=== PATIENT | female | born 1945 | race American Indian/Alaskan Native ===

== ENCOUNTER 2016-05-20 09:10 | Day surgery (SDC) | payer MEDICARE ==
[2016-05-20] MEDS ORDERED: Lactated Ringers 1,000 ML IV SCH (10:00)
[2016-05-20] MEDS ORDERED: Propofol 200 MG/20 ML SDV ONE ×2 (10:39→11:27)
[2016-05-20] MEDS ORDERED: Midazolam 1 MG/ML 2 ML SDV ONE (10:39)
[2016-05-20] MEDS ORDERED: fentaNYL 100 MCG/2 ML SDV ONE (10:39)
[2016-05-20 12:35] VITALS: BP 168/82
--- NOTE | 2016-05-23 09:30 | OR ---
DATE OF PROCEDURE: 05/20/2016 PREOPERATIVE DIAGNOSIS: Colon cancer screening and diarrhea. POSTOPERATIVE DIAGNOSES: Colon cancer screening and diarrhea. PROCEDURE: Colonoscopy to the cecum with random colonic biopsies. ANESTHESIA: IV anesthesia with monitored anesthesia care. INDICATION: This 71-year-old female is referred for a colonoscopy. She says her last colonoscopic exam was done ten years ago. She says she is having chronic diarrhea. I counseled her for a colonoscopy with possible biopsy, including risks and alternatives, and she gave her informed consent to proceed. DESCRIPTION OF PROCEDURE: The patient was placed in the left lateral decubitus position. IV anesthesia was administered by the Anesthesia Service. Time-out was held. A rectal exam was performed, which was unremarkable. The flexible video Olympus colonoscope was introduced through her anus, up her rectum, and out her colon all way to the cecum. Once the cecum was reached, the scope was slowly withdrawn examining the mucosa throughout. No mucosal abnormalities were noted. We did obtain random colonic biopsies throughout her entire colon as she complains of diarrhea. The scope was retroflexed in the rectum with the distal rectum appearing unremarkable. The scope was straightened and removed. She tolerated the procedure well. Kranthi Jade MD /[id number] [place]
== END 2016-05-20 13:20 | disposition home or self-care (01) ==
LOC: JP.SDS 09:10
PROVIDERS: ATTEND Surgery
DX: Z12.11 Encounter for screening for malignant neoplasm of colon (principal); I27.2 Other secondary pulmonary hypertension; I10 Essential (primary) hypertension; E11.9 Type 2 diabetes mellitus without complications; M19.90 Unspecified osteoarthritis, unspecified site; Z88.8 Allergy status to other drugs, medicaments and biological substances; Z95.1 Presence of aortocoronary bypass graft; Z95.5 Presence of coronary angioplasty implant and graft; F17.210 Nicotine dependence, cigarettes, uncomplicated; Z79.4 Long term (current) use of insulin
CPT/HCPCS: 45380; 88305; J2250; J2704; J3010; J7120

== ENCOUNTER 2017-11-15 19:22 | Observation (INO) | payer MEDICARE ==
[2017-11-15] MEDS ORDERED: Furosemide 40 MG/4 ML VIAL IVPUSH ONE (20:49)
--- NOTE | 2017-11-15 21:51 | EDM.PDOC ---
ED HPI GENERAL MEDICAL PROBLEM - General Chief Complaint: Cardiovascular Problem Stated Complaint: LEGS ARE SWOLLEN Time Seen by Provider: 11/15/17 20:30 Source of Information: Reports: Patient History Limitations: Reports: No Limitations - History of Present Illness INITIAL COMMENTS - FREE TEXT/NARRATIVE: 72-year-old female who has chronic COPD, chronic back pain, and chronic lower extremity edema is concerned that over the past 24 hours her usual foot and ankle edema has progressed to bilateral leg edema into the thighs. She has no increase in shortness of breath, she has chronic hypoxia and is supposed to be on home O2 but doesn't use it. She had an MRI on her back yesterday that showed a worsening L1 fracture. She is on 2400 mg of Neurontin daily. She is also and 40 mg of Lasix daily, has not missed her medications. She does admit she doesn' t monitor salt intake and eats chips "every day". Her chief complaint is her peripheral edema. Onset: Gradual (worsened over the past 24 hours) Severity: Moderate Associated Symptoms: Reports: Shortness of Breath (Chronic shortness of breath, no recent change), Weakness, Other (Intense back pain). Denies: Confusion, Cough, Nausea/Vomiting denies pain Pain Score (Numeric/FACES): 0 - Related Data Allergies Allergy/AdvReac Type Severity Reaction Status Date / Time hydrochlorothiazide Allergy Other Verified 01/07/16 09:34 [From Dyazide] hydrocodone Allergy Other Verified 01/07/16 09:34 loperamide [From Imodium A-D] Allergy Cannot Verified 05/17/16 12:53 Remember oxybutynin Allergy Other Verified 01/07/16 09:34 [id number] Reductase Allergy Other Verified 01/07/16 09:34 Inhibitor triamterene [From Dyazide] Allergy Other Verified 01/07/16 09:34 budesonide [From Symbicort] AdvReac Nausea and Verified 01/07/16 09:34 Vomiting formoterol fumarate AdvReac Nausea and Verified 01/07/16 09:34 [From Symbicort] Vomiting pregabalin [From Lyrica] AdvReac Headache Verified 01/07/16 09:34 tizanidine AdvReac Nausea Verified 01/08/16 10:52 Home Meds: Home Meds Aspirin [Adult Low Dose Aspirin EC] 81 mg PO DAILY 05/09/13 [History] Hydroxychloroquine Sulfate 400 mg PO DAILY 05/09/13 [History] SitaGLIPtin [Januvia] 100 mg PO DAILY 05/09/13 [History] cycloSPORINE [Restasis] 1 drop EYEBOTH BID 05/09/13 [History] Gabapentin [Neurontin] 600 mg PO BID 01/07/15 [History] Loratadine [Allergy Relief] 10 mg PO DAILY 01/07/15 [History] Losartan Potassium [Cozaar] 100 mg PO DAILY 01/07/15 [History] Albuterol [Proventil Neb Soln] 3 ml INH Q4H PRN 09/22/15 [History] Albuterol [Ventolin HFA] 2 puff INH Q6H PRN 09/22/15 [History] Calcium Citrate/Vitamin D3 [Calcium Citrate + D] 200 - 250 mg PO BID 09/22/15 [ History] Furosemide 40 mg PO DAILY 09/22/15 [History] Gabapentin [Neurontin] 1,200 mg PO QPM 01/05/16 [History] aMILoride [Midamor] 5 mg PO DAILY 01/05/16 [History] Acetaminophen 1,000 mg PO Q8H PRN 05/17/16 [History] Ferrous Sulfate 325 mg PO TID 05/17/16 [History] Magnesium Oxide 400 mg PO TID 05/17/16 [History] Naproxen 500 mg PO BID 05/17/16 [History] metroNIDAZOLE [metroNIDAZOLE 0.75% Cream] 1 film TOP BID 05/17/16 [History] Oxybutynin Chloride [Oxybutynin Chloride ER] 15 mg PO DAILY 11/15/17 [History] amLODIPine Besylate [Amlodipine Besylate] 10 mg PO DAILY 11/15/17 [History] Past Medical History HEENT History: Reports: Glaucoma, Impaired Vision Other HEENT History: Otitis externa of right ear, bilateral dry eyes Cardiovascular History: Reports: CAD, High Cholesterol, Hypertension, SOB on Exertion Other Cardiovascular History: RBBB,ventricular diastolic dysfunction Respiratory History: Reports: Asthma, COPD, Other (See Below) Other Respiratory History: pulmonary hypertension. suppose to be on home O2 due to COPD, patient discontinued use and sent equipment with oxygen supplier. Patient normally on 2L continuous at home. Gastrointestinal History: Reports: Chronic Diarrhea Genitourinary History: Reports: Diabetic Nephropathy, Urinary Incontinence [employer] History: Reports: Musculoskeletal History: Reports: Arthritis, Back Pain, Chronic, Fracture Other Musculoskeletal History: fx ankle Neurological History: Reports: None Psychiatric History: Reports: None Endocrine/Metabolic History: Reports: Diabetes, Type II, Obesity/BMI 30+, Osteoporosis Hematologic History: Reports: Anticoagulation Therapy Immunologic History: Reports: SLE Other Immunologic History: lupus anticoagulant positive Oncologic (Cancer) History: Reports: None Dermatologic History: Reports: Venous Stasis Dermatitis - Infectious Disease History Infectious Disease History: Reports: Chicken Pox - Past Surgical History Female Surgical History: Reports: Breast Biopsy Musculoskeletal Surgical History: Reports: Other (See Below) Other Musculoskeletal Surgeries/Procedures:: left ankle repair Oncologic Surgical History: Reports: Biopsy of Breast Dermatological Surgical History: Reports: Skin Biopsy Social & Family History - Tobacco Use Smoking Status *Q: Never Smoker - Caffeine Use Caffeine Use: Reports: Coffee - Recreational Drug Use Recreational Drug Use: No ED ROS GENERAL - Review of Systems Review Of Systems: See Below Constitutional: Denies: Fever, Chills, Decreased Appetite Respiratory: Reports: Shortness of Breath. Denies: Cough Cardiovascular: Denies: Chest Pain GI/Abdominal: Denies: Abdominal Pain, Nausea, Vomiting : Reports: No Symptoms Musculoskeletal: Reports: Back Pain Neurological: Reports: Other (Some lower extremity diabetic neuropathy) Psychiatric: Reports: No Symptoms ED EXAM, GENERAL - Physical Exam Exam: See Below Exam Limited By: No Limitations General Appearance: Alert, No Apparent Distress, Other (She has significant back pain with any type of movement such as sitting from a supine position) Head: Atraumatic Respiratory/Chest: No Respiratory Distress, Lungs Clear Cardiovascular: Regular Rate, Rhythm GI/Abdominal: Non-Tender Back Exam: Vertebral Tenderness (Very tender in the upper lumbar spine to any palpation) Extremities: Pedal Edema (Patient has pitting edema proximal to the knees bilaterally, slightly worse on the right) Neurological: Alert, Oriented Skin Exam: Warm, Dry Course - Vital Signs Last Recorded V/S: Last Vital Signs Temp 96.8 F 11/16/17 01:15 Pulse 66 11/16/17 01:15 Resp 20 11/16/17 01:15 BP 153/53 H 11/16/17 01:15 Pulse Ox 97 11/16/17 01:15 - Orders/Labs/Meds Orders: Active Orders 24 hr Category Date Time Status Oxygen Therapy, ED [RC] ASDIRECTED Care 11/15/17 20:48 Active VL Duplex Lwr Ext Veins Comp [US] Stat Exams 11/15/17 21:42 Taken Medication Orders Acetaminophen (Tylenol) 650 mg PO Q4H PRN PRN Reason: Pain (Mild 1-3)/fever Albuterol (Proventil Neb Soln) 2.5 mg INH Q4H PRN PRN Reason: wheezing Alogliptin Benzoate (Alogliptin) 12.5 mg PO DAILY [facility] Amlodipine Besylate (Norvasc) 10 mg PO DAILY [facility] Bisacodyl (Dulcolax) 5 mg PO DAILY PRN PRN Reason: Constipation Cyclosporine (Restasis) 0 each EYEBOTH BID [facility] Docusate Sodium (Colace) 100 mg PO BID PRN PRN Reason: Constipation Furosemide (Lasix) 40 mg PO DAILY [facility] Hydroxychloroquine Sulfate (Plaquenil) 400 mg PO DAILY [facility] Insulin Aspart (Novolog) 0 unit SUBCUT QIDACANDBED [facility]; Protocol Lorazepam (Ativan) 1 mg IV Q6H PRN PRN Reason: Nausea/Vomiting Losartan Potassium (Cozaar) 100 mg PO DAILY [facility] Magnesium Oxide (Magnesium Oxide) 400 mg PO TID [facility] Non-Formulary Medication (Gabapentin [Neurontin]) 600 mg PO BID [facility] Non-Formulary Medication (Gabapentin [Neurontin]) 1,200 mg PO QPM [facility] Ondansetron HCl (Zofran Odt) 4 mg PO Q6H PRN PRN Reason: Nausea able to take PO Ondansetron HCl (Zofran) 4 mg IV Q4H PRN PRN Reason: Nausea/Vomiting Pantoprazole Sodium (Protonix Granules) 40 mg PO ACBREAKFAST [facility] Labs: Laboratory Tests 11/15/17 11/15/17 11/15/17 Range/Units 20:49 20:49 20:49 WBC 5.8 (4.5-11.0) K/uL RBC 3.95 (3.30-5.50) M/uL Hgb 11.8 L D (12.0-15.0) g/dL Hct 36.4 (36.0-48.0) % MCV 92 (80-98) fL MCH 30 (27-31) pg MCHC 32 (32-36) % Plt Count 139 L (150-400) K/uL Neut % (Auto) 79 H (36-66) % Lymph % (Auto) 12 L (24-44) % Winkler % (Auto) 6 (2-6) % Eos % (Auto) 3 (2-4) % Baso % (Auto) 0 (0-1) % D-Dimer, Quantitative 2420 H (0.0-400.0) ng/mL Sodium 137 L (140-148) mmol/L Potassium 4.3 (3.6-5.2) mmol/L Chloride 102 (100-108) mmol/L Carbon Dioxide 30 (21-32) mmol/L Anion Gap 9.3 (5.0-14.0) mmol/L BUN 29 H D (7-18) mg/dL Creatinine 1.4 H D (0.6-1.0) mg/dL Est Cr Clr Drug Dosing 29.57 mL/min Estimated GFR (MDRD) 37 L (>60) Glucose 163 H (74-106) mg/dL Calcium 8.4 L (8.5-10.1) mg/dL Meds: Medications Generic Name Dose Route Start Last Admin Trade Name Freq PRN Reason Stop Dose Admin Acetaminophen 650 mg 11/16/17 01:13 Tylenol PO Q4H PRN Pain (Mild 1-3)/fever Albuterol 2.5 mg 11/16/17 01:13 Proventil Neb Soln INH Q4H PRN wheezing Alogliptin Benzoate 12.5 mg 11/16/17 09:00 Alogliptin PO DAILY [facility] Amlodipine Besylate 10 mg 11/16/17 09:00 Norvasc PO DAILY [facility] Bisacodyl 5 mg 11/16/17 01:13 Dulcolax PO DAILY PRN Constipation Cyclosporine 0 each 11/16/17 09:00 Restasis EYEBOTH BID [facility] Docusate Sodium 100 mg 11/16/17 01:13 Colace PO BID PRN Constipation Furosemide 40 mg 11/16/17 09:00 Lasix PO DAILY [facility] Hydroxychloroquine Sulfate 400 mg 11/16/17 09:00 Plaquenil PO DAILY [facility] Insulin Aspart 0 unit 11/16/17 07:00 Novolog SUBCUT QIDACANDBED [facility] Protocol Lorazepam 1 mg 11/16/17 01:13 Ativan IV Q6H PRN Nausea/Vomiting Losartan Potassium 100 mg 11/16/17 09:00 Cozaar PO DAILY [facility] Magnesium Oxide 400 mg 11/16/17 09:00 Magnesium Oxide PO TID [facility] Non-Formulary Medication 600 mg 11/16/17 09:00 Gabapentin [Neurontin] PO BID [facility] Non-Formulary Medication 1,200 mg 11/16/17 17:00 Gabapentin [Neurontin] PO QPM [facility] Ondansetron HCl 4 mg 11/16/17 01:13 Zofran Odt PO Q6H PRN Nausea able to take PO Ondansetron HCl 4 mg 11/16/17 01:13 Zofran IV Q4H PRN Nausea/Vomiting Pantoprazole Sodium 40 mg 11/16/17 07:30 Protonix Granules PO ACBREAKFAST [facility] Discontinued Medications Generic Name Dose Route Start Last Admin Trade Name Freq PRN Reason Stop Dose Admin Enoxaparin Sodium 80 mg 11/16/17 01:13 11/16/17 02:07 Lovenox SUBCUT 11/16/17 01:14 80 mg ONETIME ONE Administration Furosemide 80 mg 11/15/17 20:49 11/15/17 21:13 Lasix IVPUSH 11/15/17 20:50 80 mg ONETIME ONE Administration - Re-Assessments/Exams Free Text/Narrative Re-Assessment/Exam: 11/15/17 21:51 Patient's O2 saturations on arrival were only 83-84% on room air. 2 L of nasal cannula oxygen were supplemented and her saturations glory to 95-97%. After her exam, a CBC BMP and d-dimer were obtained, d-dimer came back very elevated at 2400. Her MRI report of the lumbar spine was reviewed, results were discussed with neurosurgery and felt nothing urgent needed to be done. Ultrasounds of the lower extremities were obtained. 11/15/17 23:15 Ultrasound did confirm a left peroneal DVT in the lower left leg. Patient had difficulty ambulating onto and off of the commode, I do not feel she is capable of going home alone. I would like the hospitalist service to admit the patient for careful diuresis, and assess whether anticoagulation is necessary. It's also concerning that her renal function has worsened since her last levels here in the hospital 2 years ago. Function was normal 2 years ago, GFR is now only 37. Departure - Departure Time of Disposition: 01:16 Disposition: Admitted As Inpatient 68 Condition: Fair Clinical Impression: Peripheral edema COPD (chronic obstructive pulmonary disease) Qualifiers: COPD type: unspecified COPD Qualified Code(s): J44.9 - Chronic obstructive pulmonary disease, unspecified DVT (deep venous thrombosis) Qualifiers: DVT location: lower extremity Affected thrombotic vein of extremity: unspecified lower extremity distal vein Chronicity: acute Laterality: left Qualified Code(s): I82.4Z2 - Acute embolism and thrombosis of unspecified deep veins of left distal lower extremity - My Orders Last 24 Hours: My Active Orders 11/15/17 20:48 Oxygen Therapy, ED [] ASDIRECTED 11/15/17 21:42 VL Duplex Lwr Ext Veins Comp [US] Stat - Assessment/Plan Last 24 Hours: My Active Orders 11/15/17 20:48 Oxygen Therapy, ED [] ASDIRECTED 11/15/17 21:42 VL Duplex Lwr Ext Veins Comp [US] Stat
--- NOTE | 2017-11-16 00:22 | PCM.HP ---
H&P History of Present Illness - General Date of Service: 11/15/17 Admit Problem/Dx: Admission Diagnosis/Problem Admission Diagnosis/Problem DVT, Deep venous thrombosis of lower extremity Source of Information: Patient History Limitations: Reports: No Limitations - History of Present Illness Initial Comments - Free Text/Narative: 72-year-old female who has chronic COPD, chronic back pain, and chronic lower extremity edema is concerned that over the past 24 hours her usual foot and ankle edema has progressed to bilateral leg edema into the thighs. She has no increase in shortness of breath, she has chronic hypoxia and is supposed to be on home O2 but doesn't use it. She had an MRI on her back yesterday that showed a worsening L1 fracture. She is on 2400 mg of Neurontin daily. She is also and 40 mg of Lasix daily, has not missed her medications. She does admit she doesn' t monitor salt intake and eats chips "every day". Her chief complaint is her peripheral edema. Onset: Gradual (worsened over the past 24 hours) Severity: Moderate Associated Symptoms: Reports: Shortness of Breath (Chronic shortness of breath, no recent change), Weakness, Other (Intense back pain). Denies: Confusion, Cough, Nausea/Vomiting Pain Score (Numeric/FACES): 0 Allergies; see med list; multi Patient's O2 saturations on arrival were only 83-84% on room air. 2 L of nasal cannula oxygen were supplemented and her saturations glory to 95-97%. After her exam, a CBC BMP and d-dimer were obtained, d-dimer came back very elevated at 2400. Her MRI report of the lumbar spine was reviewed, results were discussed with neurosurgery and felt nothing urgent needed to be done. Ultrasounds of the lower extremities were obtained. Ultrasound did confirm a left peroneal DVT in the lower left leg. Patient had difficulty ambulating onto and off of the commode, I do not feel she is capable of going home alone. I would like the hospitalist service to admit the patient for careful diuresis, and assess whether anticoagulation is necessary. It's also concerning that her renal function has worsened since her last levels here in the hospital 2 years ago. Function was normal 2 years ago, GFR is now only 37. Onset of Symptoms: Reports: Today (started this morning. ) Duration of Symptoms: Reports: Hour(s):, Getting Worse Location: Reports: Lower Extremity, Left, Lower Extremity, Right Quality: Reports: Ache Severity: Moderate Improves with: Reports: None Worsens with: Reports: None Associated Symptoms: Reports: No Other Symptoms denies pain Pain Score (Numeric/FACES): 0 - Related Data Allergies/Adverse Reactions: Allergies Allergy/AdvReac Type Severity Reaction Status Date / Time hydrochlorothiazide Allergy Other Verified 01/07/16 09:34 [From Dyazide] hydrocodone Allergy Other Verified 01/07/16 09:34 loperamide [From Imodium A-D] Allergy Cannot Verified 05/17/16 12:53 Remember oxybutynin Allergy Other Verified 01/07/16 09:34 Oqqzjop-Wir-Efq Reductase Allergy Other Verified 01/07/16 09:34 Inhibitor triamterene [From Dyazide] Allergy Other Verified 01/07/16 09:34 budesonide [From Symbicort] AdvReac Nausea and Verified 01/07/16 09:34 Vomiting formoterol fumarate AdvReac Nausea and Verified 01/07/16 09:34 [From Symbicort] Vomiting pregabalin [From Lyrica] AdvReac Headache Verified 01/07/16 09:34 tizanidine AdvReac Nausea Verified 01/08/16 10:52 Home Medications: Home Meds Aspirin [Adult Low Dose Aspirin EC] 81 mg PO DAILY 05/09/13 [History] Hydroxychloroquine Sulfate 400 mg PO DAILY 05/09/13 [History] SitaGLIPtin [Januvia] 100 mg PO DAILY 05/09/13 [History] cycloSPORINE [Restasis] 1 drop EYEBOTH BID 05/09/13 [History] Gabapentin [Neurontin] 600 mg PO BID 01/07/15 [History] Loratadine [Allergy Relief] 10 mg PO DAILY 01/07/15 [History] Losartan Potassium [Cozaar] 100 mg PO DAILY 01/07/15 [History] Albuterol [Proventil Neb Soln] 3 ml INH Q4H PRN 09/22/15 [History] Albuterol [Ventolin HFA] 2 puff INH Q6H PRN 09/22/15 [History] Calcium Citrate/Vitamin D3 [Calcium Citrate + D] 200 - 250 mg PO BID 09/22/15 [ History] Furosemide 40 mg PO DAILY 07/05/16 [History] Gabapentin [Neurontin] 1,200 mg PO QPM 01/05/16 [History] aMILoride [Midamor] 5 mg PO DAILY 01/05/16 [History] Acetaminophen 1,000 mg PO Q8H PRN 05/17/16 [History] Ferrous Sulfate 325 mg PO TID 05/17/16 [History] Magnesium Oxide 400 mg PO TID 05/17/16 [History] Naproxen 500 mg PO BID 05/17/16 [History] metroNIDAZOLE [metroNIDAZOLE 0.75% Cream] 1 film TOP BID 05/17/16 [History] Oxybutynin Chloride [Oxybutynin Chloride ER] 15 mg PO DAILY 11/15/17 [History] amLODIPine Besylate [Amlodipine Besylate] 10 mg PO DAILY 11/15/17 [History] Past Medical History HEENT History: Reports: Glaucoma, Impaired Vision Other HEENT History: Otitis externa of right ear, bilateral dry eyes Cardiovascular History: Reports: CAD, High Cholesterol, Hypertension, SOB on Exertion Other Cardiovascular History: RBBB,ventricular diastolic dysfunction Respiratory History: Reports: Asthma, COPD, Other (See Below) Other Respiratory History: pulmonary hypertension. suppose to be on home O2 due to COPD, patient discontinued use and sent equipment with oxygen supplier. Patient normally on 2L continuous at home. Gastrointestinal History: Reports: Chronic Diarrhea Genitourinary History: Reports: Diabetic Nephropathy, Urinary Incontinence [employer] History: Reports: Musculoskeletal History: Reports: Arthritis, Back Pain, Chronic, Fracture Other Musculoskeletal History: fx ankle Neurological History: Reports: None Psychiatric History: Reports: None Endocrine/Metabolic History: Reports: Diabetes, Type II, Obesity/BMI 30+, Osteoporosis Hematologic History: Reports: Anticoagulation Therapy Immunologic History: Reports: SLE Other Immunologic History: lupus anticoagulant positive Oncologic (Cancer) History: Reports: None Dermatologic History: Reports: Venous Stasis Dermatitis - Infectious Disease History Infectious Disease History: Reports: Chicken Pox - Past Surgical History Female Surgical History: Reports: Breast Biopsy Musculoskeletal Surgical History: Reports: Other (See Below) Other Musculoskeletal Surgeries/Procedures:: left ankle repair Oncologic Surgical History: Reports: Biopsy of Breast Dermatological Surgical History: Reports: Skin Biopsy Social & Family History - Tobacco Use Smoking Status *Q: Never Smoker - Caffeine Use Caffeine Use: Reports: Coffee - Recreational Drug Use Recreational Drug Use: No - Living Situation & Occupation Living situation: Reports: Single, Alone (lives alone in her home in [place], [place]., 2 children; son Palmer,who visits on weekends, Daughter two years ago of overdose. 3 grandchildren.) H&P Review of Systems - Review of Systems: Review Of Systems: See Below General: Reports: Other (lower leg pain and edema) HEENT: Reports: Glasses Pulmonary: Reports: Shortness of Breath (chronic secondary to COPD) Cardiovascular: Reports: No Symptoms Gastrointestinal: Reports: No Symptoms Genitourinary: Reports: No Symptoms Musculoskeletal: Reports: Leg Pain (bilateral lower leg edema. ) Skin: Reports: No Symptoms Psychiatric: Reports: No Symptoms Neurological: Reports: No Symptoms Hematologic/Lymphatic: Reports: No Symptoms Immunologic: Reports: No Symptoms Exam - Exam Exam: See Below - Vital Signs Vital Signs: Last Vital Signs Temp 36.5 C 11/16/17 00:10 Pulse 67 11/16/17 00:10 Resp 18 11/16/17 00:10 BP 160/58 H 11/16/17 00:10 Pulse Ox 97 11/16/17 00:10 Weight: 82.554 kg - Exam Quality Assessment: Supplemental Oxygen (2 liter per NC), DVT Prophylaxis (left leg DVT) General: Alert, Oriented, 4 HEENT: PERRLA, Conjunctiva Clear, EACs Clear, EOMI, Hearing Intact, Mucosa Moist & Burien, Nares Patent, Normal Nasal Septum, Posterior Pharynx Clear, TMs Clear, Glasses Neck: Supple, Trachea Midline, 2 Lungs: Clear to Auscultation, Normal Respiratory Effort, Decreased Breath Sounds Cardiovascular: Regular Rate, Regular Rhythm, Normal S1, Normal S2 GI/Abdominal Exam: Normal Bowel Sounds, Soft, Non-Tender, No Organomegaly, No Mass (Female) Exam: Deferred Rectal (Female) Exam: Deferred Back Exam: Other (chronic low back pain) Extremities: Pedal Edema (bilateral 1+ pitting edema to knees), Slow Capillary Refill Peripheral Pulses: 2+: Radial (L), Radial (R) Skin: Warm, Dry, Intact Neurological: Strength Equal Bilateral Neuro Extensive - Mental Status: Alert, Oriented x3, Normal Mood/Affect, Normal Cognition Neuro Extensive - Motor, Sensory, Reflexes: CN II-XII Intact, Normal Gait ( ambulates with assistance of walker) Psychiatric: Alert, Normal Affect, Normal Mood - Patient Data Lab Results Last 24 hrs: Laboratory Results - last 24 hr 11/15/17 11/15/17 11/15/17 Range/Units 20:49 20:49 20:49 WBC 5.8 (4.5-11.0) K/uL RBC 3.95 (3.30-5.50) M/uL Hgb 11.8 L D (12.0-15.0) g/dL Hct 36.4 (36.0-48.0) % MCV 92 (80-98) fL MCH 30 (27-31) pg MCHC 32 (32-36) % Plt Count 139 L (150-400) K/uL Neut % (Auto) 79 H (36-66) % Lymph % (Auto) 12 L (24-44) % Bullitt % (Auto) 6 (2-6) % Eos % (Auto) 3 (2-4) % Baso % (Auto) 0 (0-1) % D-Dimer, Quantitative 2420 H (0.0-400.0) ng/mL Sodium 137 L (140-148) mmol/L Potassium 4.3 (3.6-5.2) mmol/L Chloride 102 (100-108) mmol/L Carbon Dioxide 30 (21-32) mmol/L Anion Gap 9.3 (5.0-14.0) mmol/L BUN 29 H D (7-18) mg/dL Creatinine 1.4 H D (0.6-1.0) mg/dL Est Cr Clr Drug Dosing 29.57 mL/min Estimated GFR (MDRD) 37 L (>60) Glucose 163 H (74-106) mg/dL Calcium 8.4 L (8.5-10.1) mg/dL Result Diagrams: 11/15/17 20:49 11/15/17 20:49 - Problem List (1) COPD (chronic obstructive pulmonary disease) SNOMED Code(s): 26167012 ICD Code: J44.9 - CHRONIC OBSTRUCTIVE PULMONARY DISEASE, UNSPECIFIED Status : Acute Priority: Low Current Visit: Yes Qualifiers: COPD type: unspecified COPD Qualified Code(s): J44.9 - Chronic obstructive pulmonary disease, unspecified (2) DVT (deep venous thrombosis) SNOMED Code(s): 689674027 ICD Code: I82.409 - ACUTE EMBOLISM AND THOMBOS UNSP DEEP VN UNSP LOWER EXTREMITY Status: Acute Priority: High Current Visit: Yes Qualifiers: DVT location: lower extremity Affected thrombotic vein of extremity: unspecified lower extremity distal vein Chronicity: acute Laterality: left Qualified Code(s): I82.4Z2 - Acute embolism and thrombosis of unspecified deep veins of left distal lower extremity (3) Peripheral edema SNOMED Code(s): 378160564 ICD Code: R60.9 - EDEMA, UNSPECIFIED Status: Acute Priority: High Current Visit: Yes (4) Back pain SNOMED Code(s): 665483305 ICD Code: M54.9 - DORSALGIA, UNSPECIFIED Status: Acute Priority: Medium Current Visit: No Qualifiers: Back pain location: low back pain Chronicity: chronic (5) Diabetes mellitus, type 2 SNOMED Code(s): 14534582 ICD Code: E11.9 - TYPE 2 DIABETES MELLITUS WITHOUT COMPLICATIONS Status: Acute Priority: Medium Current Visit: Yes Qualifiers: Diabetes mellitus complication status: without complication Problem List Initiated/Reviewed/Updated: Yes Orders Last 24hrs: Active Orders 24 hr Category Date Time Status Patient Status Manage Transfer [TRANSFER] Routine ADT 11/16/17 00:03 Ordered Oxygen Therapy, ED [] ASDIRECTED Care 11/15/17 20:48 Active VL Duplex Lwr Ext Veins Comp [US] Stat Exams 11/15/17 21:42 Taken Resuscitation Status Routine Resus Stat 11/16/17 00:05 Ordered Assessment/Plan Comment:: ASSESSMENT / PLAN -72-year-old female who has chronic COPD, chronic back pain, and chronic lower extremity edema is concerned that over the past 24 hours her usual foot and ankle edema has progressed to bilateral leg edema into the thighs. She has no increase in shortness of breath, she has chronic hypoxia and is supposed to be on home O2 but doesn't use it. She had an MRI on her back yesterday that showed a worsening L1 fracture. She is on 2400 mg of Neurontin daily. She is also and 40 mg of Lasix daily, has not missed her medications. She does admit she doesn' t monitor salt intake and eats chips "every day". Her chief complaint is her peripheral edema. Onset: Gradual (worsened over the past 24 hours) Severity: Moderate Associated Symptoms: Reports: Shortness of Breath (Chronic shortness of breath, no recent change), Weakness, Other (Intense back pain). Denies: Confusion, Cough, Nausea/Vomiting Pain Score: 0 Allergies; see med list Patient's O2 saturations on arrival were only 83-84% on room air. 2 L of nasal cannula oxygen were supplemented and her saturations glory to 95-97%. After her exam, a CBC BMP and d-dimer were obtained, d-dimer came back very elevated at 2400. Her MRI report of the lumbar spine was reviewed, results were discussed with neurosurgery and felt nothing urgent needed to be done. Ultrasounds of the lower extremities were obtained. Ultrasound did confirm a left peroneal DVT in the lower left leg. Patient had difficulty ambulating onto and off of the commode, I do not feel she is capable of going home alone. I would like the hospitalist service to admit the patient for careful diuresis, and assess whether anticoagulation is necessary. It's also concerning that her renal function has worsened since her last levels here in the hospital 2 years ago. Function was normal 2 years ago, GFR is now only 37. Plan: DVT left leg, Perpheral edema -Admit to ICU Med Surg Overflow for further monitoring -Lovenox 80mg subcut once, reassess in am -IV Lasix 80mg in ER, order po 40mg in am. -Telemetry -saline lock -Advise to notify nurses of any chest pain or other symptoms -And a.m. labs: INR/PT COPD -order home medication -oxygen dependent , 2 liter per NC Diabetes Type 2 -blood glucose check before meals and at bedtime -low dose sliding scale insulin -Junuvia 100mg po daily Chronic back pain -home meds ordered -abnormal MRI of lumbar spine 11/14/2017 -has appointment with Dr. Dover, Neurosurgery, [facility] on Monday2016, request appt cancelled. Maintenance issues -Orders home meds: ordered -Nutrition: Regular diet, patient request, does not follow DM diet -Villeda catheter not indicated at this time -DVT: Lovenox -GI Prophalaxis; Protonix 40mg daily CODE STATUS: Full Admission status: Admit to Observation -I expect this patient to stay less than 24 hours, not to exceed 96 hours for evaluation and management of this problem. Disposition - anticipate discharge home after the hospital stay Primary care physician - Dr. Koenig, [facility], [place], [place]. Hospitalist: Dr. Mojica
[2017-11-16] MEDS ORDERED: Albuterol 0.083% 2.5 MG/3 ML Neb Soln INH PRN (01:13)
[2017-11-16] MEDS ORDERED: Acetaminophen 325 MG Tab PO PRN (01:13)
[2017-11-16] MEDS ORDERED: Ondansetron 4 MG Tab.DIS PO PRN (01:13)
[2017-11-16] MEDS ORDERED: Docusate Sodium 100 MG Cap PO PRN (01:13)
[2017-11-16] MEDS ORDERED: Enoxaparin 80 MG/0.8 ML Syringe SUBCUT ONE (01:13)
[2017-11-16] MEDS ORDERED: Bisacodyl 5 MG Tab PO PRN (01:13)
[2017-11-16] MEDS ORDERED: Ondansetron 4 MG/2 ML SDV IV PRN (01:13)
[2017-11-16] MEDS ORDERED: LORazepam 2 MG/ML SDV IV PRN (01:13)
[2017-11-16] MEDS ORDERED: Insulin Aspart 100 Units/ML 3 ML Pen SUBCUT SCH (07:00)
[2017-11-16] MEDS ORDERED: Pantoprazole 40 MG Delayed-Release Granules 1 Packet PO SCH (07:30)
[2017-11-16] MEDS ORDERED: Magnesium Oxide 400 MG Tab PO SCH (09:00)
[2017-11-16] MEDS ORDERED: Gabapentin 300 MG Cap PO SCH (09:00)
[2017-11-16] MEDS ORDERED: Hydroxychloroquine 200 MG Tab PO SCH (09:00)
[2017-11-16] MEDS ORDERED: cycloSPORINE Ophth Drops U/D Box of 30 EYEBOTH SCH (09:00)
[2017-11-16] MEDS ORDERED: Losartan 50 MG Tab PO SCH (09:00)
[2017-11-16] MEDS ORDERED: Furosemide 40 MG Tab PO SCH (09:00)
[2017-11-16] MEDS ORDERED: amLODIPine 10 MG Tab PO SCH (09:00)
[2017-11-16] MEDS ORDERED: Enoxaparin 100 MG/1 ML Syringe SUBCUT ONE (09:34)
[2017-11-16 12:20] VITALS: BP 157/50
--- NOTE | 2017-11-16 12:59 | PCM.DCSUM1 ---
Discharge Summary - Hospital Course Brief History: 72-year-old female with history of diabetes mellitus, COPD and diastolic congestive heart failure secondary to LVH who presented withbilateral lower extremity swelling. She was admitted for observation for further management of mild diastolic heart failure as well as treatment of a left leg DVT. Diagnosis: Stroke: No - Discharge Data Discharge Date: 11/16/17 Discharge Disposition: Home, Self-Care 01 Condition: Good - Discharge Diagnosis/Problem(s) (1) DVT (deep venous thrombosis) SNOMED Code(s): 888105474 ICD Code: I82.409 - ACUTE EMBOLISM AND THOMBOS UNSP DEEP VN UNSP LOWER EXTREMITY Status: Acute Priority: High Current Visit: Yes Qualifiers: DVT location: lower extremity Affected thrombotic vein of extremity: unspecified lower extremity distal vein Chronicity: acute Laterality: left Qualified Code(s): I82.4Z2 - Acute embolism and thrombosis of unspecified deep veins of left distal lower extremity (2) 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 SNOMED Code(s): 949878838 ICD Code: I27.22 - PULMONARY HYPERTENSION DUE TO LEFT HEART DISEASE Status : Chronic Current Visit: No (3) COPD (chronic obstructive pulmonary disease) SNOMED Code(s): 17566689 ICD Code: J44.9 - CHRONIC OBSTRUCTIVE PULMONARY DISEASE, UNSPECIFIED Status : Chronic Priority: Low Current Visit: Yes Qualifiers: COPD type: unspecified COPD Qualified Code(s): J44.9 - Chronic obstructive pulmonary disease, unspecified (4) Diabetes mellitus, type 2 SNOMED Code(s): 16620880 ICD Code: E11.9 - TYPE 2 DIABETES MELLITUS WITHOUT COMPLICATIONS Status: Chronic Priority: Medium Current Visit: Yes Qualifiers: Diabetes mellitus complication status: without complication - Patient Summary/Data Consults: Consultations 11/16/17 01:13 OT Evaluation and Treatment [CONS] Routine Please Evaluate and Treat. OT Reason for Consult: Discharge Planning This query below is only for informational purposes and is not editable. Hospital Course: Radha presented to the emergency room with 2 days worth of progressive swelling in both lower extremities. Workup in the emergency room was suggestive of mild diastolic congestive heart failure and she did receive a dose of furosemide. As part of the workup a lower extremity ultrasound was undertaken and this did reveal acute thrombosis in the left peroneal vein. The patient was admitted to the hospital for observation. She did receive a dose of furosemide in the emergency room and had resolution of her lower extremity edema. For the DVT, she did receive a dose of enoxaparin. At the time of admission. The morning after admission we reviewed the potential risks and benefits of systemic anticoagulation for a peroneal DVT. I believe she has had a higher risk given her comorbidities including diastolic heart failure, COPD as well as the d-dimer level more than 2400. She was in agreement to initiate systemic anticoagulation. The plan is for her to go home with daily enoxaparin injections until her INR is therapeutic. She will be doing this through the outpatient setting. Warfarin was initiated at the time of discharge. A referral to the Coumadin clinic will be placed to help manage her warfarin levels. we will be rechecking a BMP as well as INR in 3 days when she returns for her injection on Monday. Also noted during the hospital stay was hypoxia with resting oxygen saturations of 84% on room air. She does have a history of requiring home oxygen but had returned this to the company because she had not been using it. With her COPD and hypoxia at rest and in stable condition I believe she would benefit from oxygen therapy. We have requested home oxygen through [facility]. I did complete a [id number] encounter for home oxygen on November 16, 2017 as mentioned in this note as well as the paperwork sent to [facility] [employer]. - Patient Instructions Diet: Diabetic Diet Activity: As Tolerated Showering/Bathing: May Shower Notify Provider of: Fever, Increased Pain, Nausea and/or Vomiting Other/Special Instructions: 1. You were in the hospital for observation after you presented with lower extremity swelling. The edema was thought to be secondary to extra fluid in your system and this has improved after a dose of furosemide in the emergency room. During the workup we did discover a deep vein thrombosis (blood clot) in your left leg. After discussing the risks and benefits we have elected to treat this blood clots. [facility] should return to [facility] for an injection of enoxaparin and over the weekend you will be getting your injections through the emergency room. You should also start taking warfarin 5 mg daily. This will be the long-term medication to help get rid of the blood clots. The enoxaparin injections are short-term until your level warfarin is therapeutic. 2. Referral to the Coumadin Clinic to help manage warfarin dosing. The diagnosis is DVT and length of treatment is 3-6 months. Your goal INR will be between 2 and 3. You should have your INR checked early next week. 3. Continue your other home medications as previously prescribed. 4. Seek medical attention if he develops fever greater than 101, you have significant pain or swelling in either of your legs or if you develop acute shortness of breath. - Discharge Plan *PRESCRIPTION DRUG MONITORING PROGRAM REVIEWED*: Not Applicable *COPY OF PRESCRIPTION DRUG MONITORING REPORT IN PATIENT KELLY: Not Applicable Prescriptions/Med Rec: Warfarin [Coumadin] 5 mg PO DAILY #30 tab Home Medications: Home Meds Aspirin [Adult Low Dose Aspirin EC] 81 mg PO DAILY 05/09/13 [History] Hydroxychloroquine Sulfate 400 mg PO DAILY 05/09/13 [History] SitaGLIPtin [Januvia] 100 mg PO DAILY 05/09/13 [History] cycloSPORINE [Restasis] 1 drop EYEBOTH BID 05/09/13 [History] Gabapentin [Neurontin] 600 mg PO BID 01/07/15 [History] Loratadine [Allergy Relief] 10 mg PO DAILY 01/07/15 [History] Losartan Potassium [Cozaar] 100 mg PO DAILY 01/07/15 [History] Albuterol [Proventil Neb Soln] 3 ml INH Q4H PRN 09/22/15 [History] Albuterol [Ventolin HFA] 2 puff INH Q6H PRN 09/22/15 [History] Calcium Citrate/Vitamin D3 [Calcium Citrate + D] 200 - 250 mg PO BID 09/22/15 [ History] Furosemide 40 mg PO DAILY 09/22/15 [History] Gabapentin [Neurontin] 1,200 mg PO QPM 01/05/16 [History] aMILoride [Midamor] 5 mg PO DAILY 01/05/16 [History] Acetaminophen 1,000 mg PO Q8H PRN 05/17/16 [History] Ferrous Sulfate 325 mg PO TID 05/17/16 [History] Magnesium Oxide 400 mg PO TID 05/17/16 [History] Naproxen 500 mg PO BID 05/17/16 [History] metroNIDAZOLE [metroNIDAZOLE 0.75% Cream] 1 film TOP BID 05/17/16 [History] Oxybutynin Chloride [Oxybutynin Chloride ER] 15 mg PO DAILY 11/15/17 [History] amLODIPine Besylate [Amlodipine Besylate] 10 mg PO DAILY 11/15/17 [History] Warfarin [Coumadin] 5 mg PO DAILY #30 tab 11/16/17 [Rx] Patient Handouts: Deep Vein Thrombosis, Warfarin tablets, Vitamin K Foods and Warfarin Referrals: Eren Koenig MD [Primary Care Provider] - (1 week - f/u hospital stay for DVT and diastolic CHF) - Discharge Summary/Plan Comment DC Time >30 min.: Yes (45 - setting up home oxygen) - Patient Data Vitals - Most Recent: Last Vital Signs Temp 36.9 C 11/16/17 12:16 Pulse 61 11/16/17 12:16 Resp 16 11/16/17 12:16 BP 157/50 H 11/16/17 12:16 Pulse Ox 90 L 11/16/17 12:16 Weight - Most Recent: 86 kg I&O - Last 24 hours: Intake & Output 11/15/17 11/16/17 11/16/17 22:59 06:59 14:59 Output Total 400 1475 150 Balance -400 -1475 -150 Lab Results - Last 24 hrs: Laboratory Results - last 24 hr 11/15/17 11/15/17 11/15/17 Range/Units 20:49 20:49 20:49 WBC 5.8 (4.5-11.0) K/uL RBC 3.95 (3.30-5.50) M/uL Hgb 11.8 L D (12.0-15.0) g/dL Hct 36.4 (36.0-48.0) % MCV 92 (80-98) fL MCH 30 (27-31) pg MCHC 32 (32-36) % Plt Count 139 L (150-400) K/uL Neut % (Auto) 79 H (36-66) % Lymph % (Auto) 12 L (24-44) % [place] % (Auto) 6 (2-6) % Eos % (Auto) 3 (2-4) % Baso % (Auto) 0 (0-1) % PT (9.5-12.0) sec INR (0.80-1.20) D-Dimer, Quantitative 2420 H (0.0-400.0) ng/mL Sodium 137 L (140-148) mmol/L Potassium 4.3 (3.6-5.2) mmol/L Chloride 102 (100-108) mmol/L Carbon Dioxide 30 (21-32) mmol/L Anion Gap 9.3 (5.0-14.0) mmol/L BUN 29 H D (7-18) mg/dL Creatinine 1.4 H D (0.6-1.0) mg/dL Est Cr Clr Drug Dosing 29.57 mL/min Estimated GFR (MDRD) 37 L (>60) Glucose 163 H (74-106) mg/dL Calcium 8.4 L (8.5-10.1) mg/dL 11/16/17 Range/Units 05:50 WBC (4.5-11.0) K/uL RBC (3.30-5.50) M/uL Hgb (12.0-15.0) g/dL Hct (36.0-48.0) % MCV (80-98) fL MCH (27-31) pg MCHC (32-36) % Plt Count (150-400) K/uL Neut % (Auto) (36-66) % Lymph % (Auto) (24-44) % [place] % (Auto) (2-6) % Eos % (Auto) (2-4) % Baso % (Auto) (0-1) % PT 10.9 (9.5-12.0) sec INR 0.99 (0.80-1.20) D-Dimer, Quantitative (0.0-400.0) ng/mL Sodium (140-148) mmol/L Potassium (3.6-5.2) mmol/L Chloride (100-108) mmol/L Carbon Dioxide (21-32) mmol/L Anion Gap (5.0-14.0) mmol/L BUN (7-18) mg/dL Creatinine (0.6-1.0) mg/dL Est Cr Clr Drug Dosing mL/min Estimated GFR (MDRD) (>60) Glucose (74-106) mg/dL Calcium (8.5-10.1) mg/dL Med Orders - Current: Current Medications Acetaminophen (Tylenol) 650 mg PO Q4H PRN PRN Reason: Pain (Mild 1-3)/fever Albuterol (Proventil Neb Soln) 2.5 mg INH Q4H PRN PRN Reason: wheezing Alogliptin Benzoate (Alogliptin) 12.5 mg PO DAILY [facility] Amlodipine Besylate (Norvasc) 10 mg PO DAILY [facility] Bisacodyl (Dulcolax) 5 mg PO DAILY PRN PRN Reason: Constipation Cyclosporine (Restasis) 0 each EYEBOTH BID [facility] Docusate Sodium (Colace) 100 mg PO BID PRN PRN Reason: Constipation Furosemide (Lasix) 40 mg PO DAILY [facility] Gabapentin (Neurontin) 600 mg PO BID@0800,1400 [facility] Gabapentin (Neurontin) 1,200 mg PO BEDTIME [facility] Hydroxychloroquine Sulfate (Plaquenil) 400 mg PO DAILY [facility] Insulin Aspart (Novolog) 0 unit SUBCUT QIDACANDBED [facility]; Protocol Last Admin: 11/16/17 08:11 Dose: Not Given Lorazepam (Ativan) 1 mg IV Q6H PRN PRN Reason: Nausea/Vomiting Losartan Potassium (Cozaar) 100 mg PO DAILY [facility] Magnesium Oxide (Magnesium Oxide) 400 mg PO TID [facility] Ondansetron HCl (Zofran Odt) 4 mg PO Q6H PRN PRN Reason: Nausea able to take PO Ondansetron HCl (Zofran) 4 mg IV Q4H PRN PRN Reason: Nausea/Vomiting Pantoprazole Sodium (Protonix Granules) 40 mg PO ACBREAKFAST [facility] Discontinued Medications Enoxaparin Sodium (Lovenox) 80 mg SUBCUT ONETIME ONE Stop: 11/16/17 01:14 Last Admin: 11/16/17 02:07 Dose: 80 mg Furosemide (Lasix) 80 mg IVPUSH ONETIME ONE Stop: 11/15/17 20:50 Last Admin: 11/15/17 21:13 Dose: 80 mg - Exam Quality Assessment: Reports: Supplemental Oxygen General: Reports: Alert, Oriented, Cooperative, No Acute Distress Neck: Reports: Supple Lungs: Reports: Clear to Auscultation, Normal Respiratory Effort Cardiovascular: Reports: Regular Rate, Regular Rhythm GI/Abdominal Exam: Soft, No Distention Extremities: Pedal Edema (mild bilateral ankle edema) Psy/Mental Status: Reports: Alert, Normal Affect
[2017-11-16] MEDS ORDERED: Gabapentin 400 MG Cap PO SCH (21:00)
== END 2017-11-16 15:45 | disposition home or self-care (01) ==
LOC: JP.ED 19:22 → JP.ICU 11-16 00:03 → UNDOADMOB 11-16 00:49
PROVIDERS: ADMIT Internal Medicine; ATTEND Internal Medicine
DX: I82.4Z2 Acute embolism and thrombosis of unspecified deep veins of left distal lower extremity (principal); I27.22 Pulmonary hypertension due to left heart disease; I11.0 Hypertensive heart disease with heart failure; I50.30 Unspecified diastolic (congestive) heart failure; I45.10 Unspecified right bundle-branch block; J44.9 Chronic obstructive pulmonary disease, unspecified; Z99.81 Dependence on supplemental oxygen; E11.21 Type 2 diabetes mellitus with diabetic nephropathy; E78.00 Pure hypercholesterolemia, unspecified; M81.0 Age-related osteoporosis without current pathological fracture; E66.9 Obesity, unspecified; M32.9 Systemic lupus erythematosus, unspecified; M19.90 Unspecified osteoarthritis, unspecified site; M54.9 Dorsalgia, unspecified; Z79.01 Long term (current) use of anticoagulants; Z79.82 Long term (current) use of aspirin; Z79.84 Long term (current) use of oral hypoglycemic drugs; Z79.899 Other long term (current) drug therapy; Z88.5 Allergy status to narcotic agent; Z88.8 Allergy status to other drugs, medicaments and biological substances
CPT/HCPCS: 36415; 80048; 82962; 85025; 85379; 85610; 93306; 93970; 96374; 97165; 99285; J1650; J1940; A9270-GY

== ENCOUNTER 2018-04-09 17:25 | Observation (INO) | payer MEDICARE ==
--- NOTE | 2018-04-09 18:52 | EDM.PDOC ---
<Zoe Guevara N - Last Filed: 04/09/18 19:02> ED HPI GENERAL MEDICAL PROBLEM - General Chief Complaint: Gastrointestinal Problem Stated Complaint: RECTAL BLEEDING Time Seen by Provider: 04/09/18 18:46 Source of Information: Reports: Patient History Limitations: Reports: No Limitations - History of Present Illness INITIAL COMMENTS - FREE TEXT/NARRATIVE: Radha is a 73-year-old female who presents to the ER with complaints of bright red bleeding in her last two bowel movements the past 3.5 hours. States she gushed a large amount of blood into the toilet on both occasions. The patient reports that her last colonoscopy was about 2 years ago, with no remarkable findings at that time. She denies constipation, hemorrhoids, hematuria, or other general symptoms. Onset: Today, Sudden Onset Date: 04/09/18 Onset Time: 15:00 - Related Data Allergies Allergy/AdvReac Type Severity Reaction Status Date / Time hydrochlorothiazide Allergy Other Verified 04/09/18 17:58 [From Dyazide] hydrocodone Allergy Other Verified 04/09/18 17:58 loperamide [From Imodium A-D] Allergy Cannot Unverified 04/09/18 17:58 Remember oxybutynin Allergy Other Verified 04/09/18 17:58 Lvkyifo-Oev-Ifv Reductase Allergy Other Verified 04/09/18 17:58 Inhibitor triamterene [From Dyazide] Allergy Other Verified 04/09/18 17:58 budesonide [From Symbicort] AdvReac Nausea and Verified 04/09/18 17:58 Vomiting formoterol fumarate AdvReac Nausea and Verified 04/09/18 17:58 [From Symbicort] Vomiting pregabalin [From Lyrica] AdvReac Headache Verified 04/09/18 17:58 tizanidine AdvReac Nausea Verified 04/09/18 17:58 Home Meds: Home Meds Aspirin [Adult Low Dose Aspirin EC] 81 mg PO DAILY 05/09/13 [History] Hydroxychloroquine Sulfate 400 mg PO DAILY 05/09/13 [History] SitaGLIPtin [Januvia] 100 mg PO DAILY 05/09/13 [History] cycloSPORINE [Restasis] 1 drop EYEBOTH BID 05/09/13 [History] Gabapentin [Neurontin] 600 mg PO BID 01/07/15 [History] Loratadine [Allergy Relief] 10 mg PO DAILY 01/07/15 [History] Losartan Potassium [Cozaar] 100 mg PO DAILY 01/07/15 [History] Albuterol [Proventil Neb Soln] 3 ml INH Q4H PRN 09/22/15 [History] Albuterol [Ventolin HFA] 2 puff INH Q6H PRN 09/22/15 [History] Calcium Citrate/Vitamin D3 [Calcium Citrate + D] 200 - 250 mg PO BID 09/22/15 [ History] Furosemide 40 mg PO DAILY 09/22/15 [History] Gabapentin [Neurontin] 1,200 mg PO QPM 01/05/16 [History] aMILoride [Midamor] 5 mg PO DAILY 01/05/16 [History] Acetaminophen 1,000 mg PO Q8H PRN 05/17/16 [History] Ferrous Sulfate 325 mg PO TID 05/17/16 [History] Magnesium Oxide 400 mg PO TID 05/17/16 [History] Naproxen 500 mg PO BID 05/17/16 [History] metroNIDAZOLE [metroNIDAZOLE 0.75% Cream] 1 film TOP BID 05/17/16 [History] Oxybutynin Chloride [Oxybutynin Chloride ER] 15 mg PO DAILY 11/15/17 [History] amLODIPine Besylate [Amlodipine Besylate] 10 mg PO DAILY 11/15/17 [History] Warfarin [Coumadin] 5 mg PO DAILY #30 tab 11/16/17 [Rx] Past Medical History HEENT History: Reports: Glaucoma, Impaired Vision Other HEENT History: Otitis externa of right ear, bilateral dry eyes Cardiovascular History: Reports: CAD, High Cholesterol, Hypertension, SOB on Exertion Other Cardiovascular History: RBBB,ventricular diastolic dysfunction Respiratory History: Reports: Asthma, COPD, Other (See Below) Other Respiratory History: pulmonary hypertension. suppose to be on home O2 due to COPD, patient discontinued use and sent equipment with oxygen supplier. Patient normally on 2L continuous at home. Gastrointestinal History: Reports: Chronic Diarrhea Genitourinary History: Reports: Diabetic Nephropathy, Urinary Incontinence TONG SETTER History: Reports: Musculoskeletal History: Reports: Arthritis, Back Pain, Chronic, Fracture Other Musculoskeletal History: fx ankle Neurological History: Reports: None Psychiatric History: Reports: None Endocrine/Metabolic History: Reports: Diabetes, Type II, Obesity/BMI 30+, Osteoporosis Other Endocrine/Metabolic History: lupus Hematologic History: Reports: Anticoagulation Therapy Immunologic History: Reports: SLE Other Immunologic History: lupus anticoagulant positive Oncologic (Cancer) History: Reports: None Dermatologic History: Reports: Venous Stasis Dermatitis - Infectious Disease History Infectious Disease History: Reports: Chicken Pox - Past Surgical History Female Surgical History: Reports: Breast Biopsy Musculoskeletal Surgical History: Reports: Other (See Below) Other Musculoskeletal Surgeries/Procedures:: left ankle repair Oncologic Surgical History: Reports: Biopsy of Breast Dermatological Surgical History: Reports: Skin Biopsy Social & Family History - Tobacco Use Smoking Status *Q: Former Smoker Years of Tobacco use: 40 Packs/Tins Daily: 1 Used Tobacco, but Quit: Yes Month/Year Tobacco Last Used: 12 years ago Second Hand Smoke Exposure: No - Caffeine Use Caffeine Use: Reports: Coffee, Soda Other Caffeine Use: 3 cups coffee daily, 1 can pop dailty - Recreational Drug Use Recreational Drug Use: No - Living Situation & Occupation Living situation: Reports: Single, Alone (lives alone in her home in [place], [place]., 2 children; son Palmer,who visits on weekends, Daughter two years ago of overdose. 3 grandchildren.) ED ROS GENERAL - Review of Systems Review Of Systems: See Below Constitutional: Reports: No Symptoms. Denies: Fever, Chills, Decreased Appetite HEENT: Reports: No Symptoms Respiratory: Reports: No Symptoms Cardiovascular: Reports: Edema, Other (Heart "skips a beat"). Denies: Chest Pain, Lightheadedness Endocrine: Reports: No Symptoms GI/Abdominal: Reports: Bloody Stool, Hematochezia. Denies: Abdominal Pain, Constipation, Diarrhea, Decreased Appetite, Hematemesis, Nausea, Vomiting : Reports: Frequency (States she is on Lasix). Denies: No Symptoms, Hematuria , Pain Musculoskeletal: Reports: No Symptoms Skin: Reports: No Symptoms Neurological: Reports: No Symptoms Psychiatric: Reports: No Symptoms ED EXAM, GI/ABD - Physical Exam Exam: See Below Exam Limited By: No Limitations General Appearance: Alert, WD/WN, No Apparent Distress Eyes: Bilateral: Normal Appearance Ears: Normal External Exam, Normal Canal, Hearing Grossly Normal, Normal TMs Nose: Normal Inspection Throat/Mouth: Normal Inspection, Normal Lips, Normal Oropharynx, Normal Voice, No Airway Compromise Head: Atraumatic, Normocephalic Neck: Normal Inspection, Supple, Non-Tender Respiratory/Chest: No Respiratory Distress, Lungs Clear, Normal Breath Sounds Cardiovascular: Normal Peripheral Pulses, Other (Regularly irregular; +1 pitting edema in lower extremities bilaterally) GI/Abdominal Exam: Normal Bowel Sounds, Soft, Non-Tender, No Distention, No Mass (Female) Exam: No: Deferred Neurological: Alert, Oriented, Normal Cognition, No Motor/Sensory Deficits Psychiatric: Normal Affect, Normal Mood Skin Exam: Warm, Dry, Intact, Normal Color, No Rash Lymphatic: No Adenopathy Course - Vital Signs Last Recorded V/S: Last Vital Signs Temp 96.6 F 04/09/18 18:03 Pulse 87 04/09/18 18:03 Resp 16 04/09/18 18:03 BP 162/64 H 04/09/18 18:03 Pulse Ox 98 04/09/18 18:03 - Orders/Labs/Meds Orders: Active Orders 24 hr Category Date Time Status Peripheral IV Care [RC] . DIRECTED Care 04/09/18 20:44 Active Sodium Chloride 0.9% [Saline Flush] Med 04/09/18 20:44 Active 10 ml FLUSH ASDIRECTED PRN Peripheral IV Insertion Adult [OM.PC] Urgent Oth 04/09/18 20:44 Ordered Medication Orders Sodium Chloride (Saline Flush) 10 ml FLUSH ASDIRECTED PRN PRN Reason: Keep Vein Open Labs: Laboratory Tests 04/09/18 04/09/18 04/09/18 Range/Units 19:07 19:07 19:10 WBC 4.9 (4.5-11.0) K/uL RBC 3.30 (3.30-5.50) M/uL Hgb 10.0 L (12.0-15.0) g/dL Hct 30.8 L (36.0-48.0) % MCV 93 (80-98) fL MCH 30 (27-31) pg MCHC 33 (32-36) % Plt Count 131 L (150-400) K/uL Neut % (Auto) 67 H (36-66) % Lymph % (Auto) 23 L (24-44) % [place] % (Auto) 6 (2-6) % Eos % (Auto) 3 (2-4) % Baso % (Auto) 0 (0-1) % PT 12.8 H (9.5-12.0) sec INR 1.17 D (0.80-1.20) Sodium 143 (140-148) mmol/L Potassium 3.8 (3.6-5.2) mmol/L Chloride 107 (100-108) mmol/L Carbon Dioxide 30 (21-32) mmol/L Anion Gap 5.9 (5.0-14.0) mmol/L BUN 30 H (7-18) mg/dL Creatinine 0.9 (0.6-1.0) mg/dL Est Cr Clr Drug Dosing 45.34 mL/min Estimated GFR (MDRD) > 60 (>60) Glucose 96 (74-106) mg/dL Calcium 9.2 (8.5-10.1) mg/dL Meds: Medications Generic Name Dose Route Start Last Admin Trade Name Freq PRN Reason Stop Dose Admin Sodium Chloride 10 ml 04/09/18 20:44 Saline Flush FLUSH ASDIRECTED PRN Keep Vein Open Departure - Departure Disposition: Refer to Observation Clinical Impression: BRBPR (bright red blood per rectum) - Discharge Information Referrals: Eren Koenig MD [Primary Care Provider] - Forms: ED Department Discharge - My Orders Last 24 Hours: My Active Orders 04/09/18 20:44 Peripheral IV Care [RC] . DIRECTED Sodium Chloride 0.9% [Saline Flush] 10 ml FLUSH ASDIRECTED PRN Peripheral IV Insertion Adult [OM.PC] Urgent - Assessment/Plan Last 24 Hours: My Active Orders 04/09/18 20:44 Peripheral IV Care [RC] . DIRECTED Sodium Chloride 0.9% [Saline Flush] 10 ml FLUSH ASDIRECTED PRN Peripheral IV Insertion Adult [OM.PC] Urgent <OfficerPatric - Last Filed: 04/09/18 20:47> ED HPI GENERAL MEDICAL PROBLEM - History of Present Illness INITIAL COMMENTS - FREE TEXT/NARRATIVE: Recently changed from Coumadin to Eliquis for history of DVTs ED EXAM, GI/ABD - Physical Exam Text/Narrative:: Agree with the exam below Exam Limited By: No Limitations General Appearance: Alert, WD/WN, No Apparent Distress Rectal (Female) Exam: Normal Exam, Heme + Stool, Rectal Fissure, Other (denuded skin) Course - Orders/Labs/Meds Orders: Active Orders 24 hr Category Date Time Status Peripheral IV Care [RC] . DIRECTED Care 04/09/18 20:44 Active Sodium Chloride 0.9% [Saline Flush] Med 04/09/18 20:44 Active 10 ml FLUSH ASDIRECTED PRN Peripheral IV Insertion Adult [OM.PC] Urgent Oth 04/09/18 20:44 Ordered Medication Orders Sodium Chloride (Saline Flush) 10 ml FLUSH ASDIRECTED PRN PRN Reason: Keep Vein Open Labs: Laboratory Tests 04/09/18 04/09/18 04/09/18 Range/Units 19:07 19:07 19:10 WBC 4.9 (4.5-11.0) K/uL RBC 3.30 (3.30-5.50) M/uL Hgb 10.0 L (12.0-15.0) g/dL Hct 30.8 L (36.0-48.0) % MCV 93 (80-98) fL MCH 30 (27-31) pg MCHC 33 (32-36) % Plt Count 131 L (150-400) K/uL Neut % (Auto) 67 H (36-66) % Lymph % (Auto) 23 L (24-44) % [place] % (Auto) 6 (2-6) % Eos % (Auto) 3 (2-4) % Baso % (Auto) 0 (0-1) % PT 12.8 H (9.5-12.0) sec INR 1.17 D (0.80-1.20) Sodium 143 (140-148) mmol/L Potassium 3.8 (3.6-5.2) mmol/L Chloride 107 (100-108) mmol/L Carbon Dioxide 30 (21-32) mmol/L Anion Gap 5.9 (5.0-14.0) mmol/L BUN 30 H (7-18) mg/dL Creatinine 0.9 (0.6-1.0) mg/dL Est Cr Clr Drug Dosing 45.34 mL/min Estimated GFR (MDRD) > 60 (>60) Glucose 96 (74-106) mg/dL Calcium 9.2 (8.5-10.1) mg/dL Meds: Medications Generic Name Dose Route Start Last Admin Trade Name Freq PRN Reason Stop Dose Admin Sodium Chloride 10 ml 04/09/18 20:44 Saline Flush FLUSH ASDIRECTED PRN Keep Vein Open Departure - Departure Time of Disposition: 20:47 Condition: Fair - My Orders Last 24 Hours: My Active Orders 04/09/18 20:44 Peripheral IV Care [RC] . DIRECTED Sodium Chloride 0.9% [Saline Flush] 10 ml FLUSH ASDIRECTED PRN Peripheral IV Insertion Adult [OM.PC] Urgent - Assessment/Plan Last 24 Hours: My Active Orders 04/09/18 20:44 Peripheral IV Care [RC] . DIRECTED Sodium Chloride 0.9% [Saline Flush] 10 ml FLUSH ASDIRECTED PRN Peripheral IV Insertion Adult [OM.PC] Urgent Plan: Assessment Acuity = acute Site and laterality = bright red blood per rectum Etiology = unknown etiology Manifestations = none Location of injury = Home Lab values = hemoglobin 10.0 consistent normochromic anemia INR is 1.17 BMP unremarkable Plan She had no active bleeding while emergency department called discussed case with Dr. Benitez at 20:40 he felt admission and colonoscopy would be best therefore she'll be admitted the hospital plan for colonoscopy in the morning This note was dictated using [employer] voice recognition software please call with any questions on syntax or grammar. Patric Gonzalez MD was personally available for consultation in the ED. I have reviewed the chart and agree with the documentation as recorded by the [employer] student, including the assessment, treatment plan and disposition. Patric Gonzalez MD personally saw and examined the patient. I have reviewed and agree with the CLINICAL REHAB [employer]IAISON student's findings.
[2018-04-09] MEDS ORDERED: Sodium Chloride 0.9% 10 ML Syringe FLUSH PRN (20:44)
[2018-04-09] MEDS ORDERED: Albuterol 0.083% 2.5 MG/3 ML Neb Soln INH PRN (20:51)
[2018-04-09] MEDS ORDERED: Albuterol 8 GM Inhaler INH PRN (20:51)
[2018-04-09] MEDS ORDERED: cycloSPORINE Ophth Drops U/D Box of 30 EYEBOTH SCH (21:00)
[2018-04-09] MEDS: Lactated Ringers 1,000 ML IV SCH (21:45)
[2018-04-09] MEDS: Ferrous Sulfate 325 MG Tab PO SCH (21:49)
[2018-04-09] MEDS: Magnesium Oxide 400 MG Tab PO SCH (21:49)
[2018-04-09] MEDS: Gabapentin 300 MG Cap PO SCH (21:54)
[2018-04-09] MEDS ORDERED: Bisacodyl 5 MG Tab PO ONE (22:39)
[2018-04-09] MEDS ORDERED: Polyethylene Glycol 3350 Powder 238 GM Bot PO ONE (22:39)
[2018-04-10] MEDS: Lactated Ringers 1,000 ML IV SCH ×2 (05:22→09:58)
[2018-04-10] MEDS ORDERED: fentaNYL 100 MCG/2 ML SDV ONE (07:47)
[2018-04-10] MEDS ORDERED: Propofol 200 MG/20 ML SDV ONE (07:47)
[2018-04-10] MEDS ORDERED: amLODIPine 5 MG Tab PO SCH (09:00)
[2018-04-10] MEDS ORDERED: cycloSPORINE Ophth Drops U/D Box of 30 EYEBOTH SCH (09:00)
[2018-04-10] MEDS ORDERED: Furosemide 40 MG Tab PO SCH (09:00)
[2018-04-10] MEDS ORDERED: Hydroxychloroquine 200 MG Tab PO SCH (09:00)
[2018-04-10] MEDS ORDERED: Losartan 50 MG Tab PO SCH (09:00)
[2018-04-10] MEDS ORDERED: Loratadine 10 MG Tab.DIS PO SCH (09:00)
--- NOTE | 2018-04-10 11:17 | PN ---
DATE OF SERVICE: 04/10/2018 SUBJECTIVE: Radha is a 73-year-old female who was admitted through the emergency room for bright red rectal bleeding. She is n.p.o. for colonoscopy today. She did have a prep. REVIEW OF SYSTEMS: Negative for any pertinent positives and negatives with the exception of bright red rectal bleeding. OBJECTIVE: GENERAL: Radha Obrien is a 73-year-old female. VITAL SIGNS: TPR is 97.7/87/18, blood pressure 152/57. HEENT: Negative. NECK: Supple. HEART: Regular rate and rhythm. LUNGS: Clear. ABDOMEN: Soft, nontender. EXTREMITIES: Without peripheral edema. ASSESSMENT: Rectal bleeding. PLAN: Scheduled and have consent signed for colonoscopy, possible biopsies, IV sedation. Orders to be written post procedure. We will evaluate michael Martínez PA-C /[id number]
[2018-04-10] MEDS ORDERED: amLODIPine 10 MG Tab PO SCH (11:30)
[2018-04-10] MEDS: Ferrous Sulfate 325 MG Tab PO SCH ×2 (12:01→13:11)
[2018-04-10] MEDS: Magnesium Oxide 400 MG Tab PO SCH ×2 (12:02→13:11)
[2018-04-10] MEDS: Gabapentin 300 MG Cap PO SCH (12:02)
[2018-04-10] MEDS ORDERED: Pneumococcal Polyvalent-23 Vaccine 0.5 ML SDV IM ONE (14:00)
[2018-04-10 15:04] VITALS: BP 136/47
--- NOTE | 2018-04-10 15:47 | PCM.DCSUM1 ---
Discharge Summary - Hospital Course Brief History: Ms. Obrien is a 73-year-old woman who was admitted through the emergency department with 2 episodes of red blood per rectum on the day of admission. - Discharge Data Discharge Date: 04/10/18 Discharge Disposition: Home, Self-Care 01 Condition: Fair - Patient Summary/Data Consults: Consultations 04/10/18 10:54 Consult to Physician [CONS] Routine Consulting Provider: Cady Gracia Courtesy Call Completed to Consulting Physician: Yes Reason for Consult: proctitis Person Notified: cady gracia Date Notified: 04/10/18 Special Instructions: called by [facility] Course: Radha is a 73-year-old female who presented to the ER with complaints of bright red bleeding in her last two bowel movements the past 3.5 hours. States she gushed a large amount of blood into the toilet on both occasions. The patient reports that her last colonoscopy was about 2 years ago, with no remarkable findings at that time. She denies constipation, hemorrhoids, hematuria, or other general symptoms. She was admitted to the hospital on observation status, given IV fluids for hydration. The morning after admission she was seen and evaluated by Dr. Benitez for surgical consult and a colonoscopy was performed. Colonoscopy showed intense colitis in the distal 10 cm of the rectum. She has no previous history of inflammatory bowel disease and symptoms occurred relatively abruptly. Most likely area of inflammation felt to be secondary to infection. I discussed management with the patient and recommended that she stay in the hospital for a few days for IV antibiotic therapy which she refused. She is adamant about discharge to home today. She denies significant pain and has had no further bleeding since admission. She will be placed on a one-week course of oral ciprofloxacin and Flagyl. Activity will be as tolerated and she will be on a soft low residue diet. She is instructed to return to the emergency department if she notes any further episodes of bleeding. Her Xarelto will be held for a period of 7 days and then she can resume taking it as previously dosed. Follow-up appointment will be scheduled with her primary care provider within one week. - Patient Instructions Diet: GI Soft/Low Residue/Low Fiber (For one week) Other/Special Instructions: Please schedule follow-up appointment with Dr. Koenig within one week. Hemoglobin level should be obtained at the time of discharge. Please instruct patient to take all antibiotics as directed until they are gone. Do not take Xarelto for one week, then resume as previously directed. - Discharge Plan *PRESCRIPTION DRUG MONITORING PROGRAM REVIEWED*: Not Applicable *COPY OF PRESCRIPTION DRUG MONITORING REPORT IN PATIENT KELLY: No Prescriptions/Med Rec: Ciprofloxacin HCl [Cipro] 500 mg PO BID #14 tablet metroNIDAZOLE [Flagyl] 500 mg PO Q8H #21 tab Home Medications: Home Meds Aspirin [Adult Low Dose Aspirin EC] 81 mg PO DAILY 05/09/13 [History] Hydroxychloroquine Sulfate 400 mg PO DAILY 05/09/13 [History] cycloSPORINE [Restasis] 1 drop EYEBOTH BID 05/09/13 [History] Gabapentin [Neurontin] 600 mg PO BID 01/07/15 [History] Loratadine [Allergy Relief] 10 mg PO DAILY 01/07/15 [History] Losartan Potassium [Cozaar] 100 mg PO DAILY 01/07/15 [History] Albuterol [Proventil Neb Soln] 3 ml INH Q4H PRN 09/22/15 [History] Albuterol [Ventolin HFA] 2 puff INH Q6H PRN 09/22/15 [History] Calcium Citrate/Vitamin D3 [Calcium Citrate + D] 200 - 250 mg PO BID 09/22/15 [ History] Furosemide 40 mg PO DAILY 09/22/15 [History] Gabapentin [Neurontin] 1,200 mg PO QPM 01/05/16 [History] Acetaminophen 1,000 mg PO Q8H PRN 05/17/16 [History] Ferrous Sulfate 325 mg PO TID 05/17/16 [History] Magnesium Oxide 400 mg PO TID 05/17/16 [History] Naproxen 500 mg PO BID 05/17/16 [History] amLODIPine Besylate [Amlodipine Besylate] 10 mg PO DAILY 11/15/17 [History] Rivaroxaban [Xarelto] 1 tab PO DAILY 04/09/18 [History] Ciprofloxacin HCl [Cipro] 500 mg PO BID #14 tablet 04/10/18 [Rx] metroNIDAZOLE [Flagyl] 500 mg PO Q8H #21 tab 04/10/18 [Rx] Referrals: Eren Koenig MD [Primary Care Provider] - - Discharge Summary/Plan Comment DC Time >30 min.: No - Patient Data Vitals - Most Recent: Last Vital Signs Temp 97.9 F 04/10/18 15:02 Pulse 71 04/10/18 15:02 Resp 16 04/10/18 15:02 BP 136/47 L 04/10/18 15:02 Pulse Ox 94 L 04/10/18 15:02 Weight - Most Recent: 175 lb 0.012 oz I&O - Last 24 hours: Intake & Output 04/10/18 04/10/18 04/10/18 06:59 14:59 22:59 Intake Total 1836 345 Output Total 600 Balance 1836 -255 Lab Results - Last 24 hrs: Laboratory Results - last 24 hr 04/09/18 04/09/18 04/09/18 Range/Units 19:07 19:07 19:10 WBC 4.9 (4.5-11.0) K/uL RBC 3.30 (3.30-5.50) M/uL Hgb 10.0 L (12.0-15.0) g/dL Hct 30.8 L (36.0-48.0) % MCV 93 (80-98) fL MCH 30 (27-31) pg MCHC 33 (32-36) % Plt Count 131 L (150-400) K/uL Neut % (Auto) 67 H (36-66) % Lymph % (Auto) 23 L (24-44) % [place] % (Auto) 6 (2-6) % Eos % (Auto) 3 (2-4) % Baso % (Auto) 0 (0-1) % PT 12.8 H (9.5-12.0) sec INR 1.17 D (0.80-1.20) Sodium 143 (140-148) mmol/L Potassium 3.8 (3.6-5.2) mmol/L Chloride 107 (100-108) mmol/L Carbon Dioxide 30 (21-32) mmol/L Anion Gap 5.9 (5.0-14.0) mmol/L BUN 30 H (7-18) mg/dL Creatinine 0.9 (0.6-1.0) mg/dL Est Cr Clr Drug Dosing 45.34 mL/min Estimated GFR (MDRD) > 60 (>60) Glucose 96 (74-106) mg/dL Calcium 9.2 (8.5-10.1) mg/dL 04/10/18 Range/Units 04:50 WBC 4.5 (4.5-11.0) K/uL RBC 3.28 L (3.30-5.50) M/uL Hgb 9.7 L (12.0-15.0) g/dL Hct 30.6 L (36.0-48.0) % MCV 93 (80-98) fL MCH 30 (27-31) pg MCHC 32 (32-36) % Plt Count 123 L (150-400) K/uL Neut % (Auto) 75 H (36-66) % Lymph % (Auto) 16 L (24-44) % [place] % (Auto) 7 H (2-6) % Eos % (Auto) 3 (2-4) % Baso % (Auto) 0 (0-1) % PT (9.5-12.0) sec INR (0.80-1.20) Sodium (140-148) mmol/L Potassium (3.6-5.2) mmol/L Chloride (100-108) mmol/L Carbon Dioxide (21-32) mmol/L Anion Gap (5.0-14.0) mmol/L BUN (7-18) mg/dL Creatinine (0.6-1.0) mg/dL Est Cr Clr Drug Dosing mL/min Estimated GFR (MDRD) (>60) Glucose (74-106) mg/dL Calcium (8.5-10.1) mg/dL NERY Results - Last 24 hrs: Microbiology 04/10/18 10:28 Clostridium difficile (PCR) - Final Stool / Feces - Stool, Liquid NEGATIVE CDIFF TOXIN Med Orders - Current: Current Medications Albuterol (Proventil Neb Soln) 2.5 mg INH Q4H PRN PRN Reason: wheezing Albuterol (Ventolin Hfa) 0 gm INH Q6H PRN PRN Reason: Wheezing Amlodipine Besylate (Norvasc) 10 mg PO DAILY [facility] Last Admin: 04/10/18 12:03 Dose: 10 mg Cyclosporine (Restasis) 0 each EYEBOTH BID [facility] Last Admin: 04/10/18 12:04 Dose: Not Given Ferrous Sulfate (Ferrous Sulfate) 325 mg PO TID [facility] Last Admin: 04/10/18 13:11 Dose: Not Given Furosemide (Lasix) 40 mg PO DAILY [facility] Last Admin: 04/10/18 12:02 Dose: Not Given Gabapentin (Neurontin) 600 mg PO BID [facility] Last Admin: 04/10/18 12:02 Dose: 600 mg Gabapentin (Neurontin) 1,200 mg PO QPM [facility] Hydroxychloroquine Sulfate (Plaquenil) 400 mg PO DAILY [facility] Last Admin: 04/10/18 12:02 Dose: 400 mg Lactated Ringer's (Ringers, Lactated) 1,000 mls @ 125 mls/hr IV ASDIRECTED [facility] Last Admin: 04/10/18 09:58 Dose: 125 mls/hr Loratadine (Claritin Reditabs) 10 mg PO DAILY [facility] Last Admin: 04/10/18 10:55 Dose: Not Given Losartan Potassium (Cozaar) 100 mg PO DAILY [facility] Last Admin: 04/10/18 12:01 Dose: 100 mg Magnesium Oxide (Magnesium Oxide) 400 mg PO TID [facility] Last Admin: 04/10/18 13:11 Dose: Not Given Sodium Chloride (Saline Flush) 10 ml FLUSH ASDIRECTED PRN PRN Reason: Keep Vein Open Last Admin: 04/09/18 21:05 Dose: 10 ml Discontinued Medications Amlodipine Besylate (Norvasc) 10 mg PO DAILY [facility] Bisacodyl (Dulcolax) 10 mg PO ONETIME ONE Stop: 04/09/18 22:40 Last Admin: 04/09/18 23:18 Dose: 10 mg Cyclosporine (Restasis) 0 each EYEBOTH BID [facility] Last Admin: 04/09/18 23:11 Dose: Not Given Fentanyl (Sublimaze) Confirm Administered Dose 100 mcg .ROUTE .STK-MED ONE Stop: 04/10/18 07:48 Pneumococcal Polyvalent Vaccine (Pneumovax 23) 0.5 ml IM .ONCE ONE Stop: 04/10/18 14:01 Last Admin: 04/10/18 13:22 Dose: 0.5 ml Polyethylene Glycol (Miralax) 238 gm PO ONETIME ONE Stop: 04/09/18 22:40 Last Admin: 04/09/18 23:18 Dose: 238 gm Propofol (Diprivan 20 Ml) Confirm Administered Dose 200 mg .ROUTE .STK-MED ONE Stop: 04/10/18 07:48 - Exam General: Reports: Alert, Oriented, Cooperative, No Acute Distress Lungs: Reports: Clear to Auscultation, Normal Respiratory Effort Cardiovascular: Reports: Regular Rate, Regular Rhythm, No Murmurs GI/Abdominal Exam: Soft, Non-Tender, No Organomegaly, No Distention Extremities: Non-Tender, No Pedal Edema
[2018-04-10] MEDS ORDERED: Gabapentin 400 MG Cap PO SCH (17:00)
--- NOTE | 2018-04-15 12:05 | OR ---
DATE OF PROCEDURE: 04/10/2018 PREOPERATIVE DIAGNOSIS: Lower gastrointestinal bleeding. POSTOPERATIVE DIAGNOSIS: Lower gastrointestinal bleeding associated with proctitis. PROCEDURE: Flexible colonoscopy with: 1. Collection of stool for microbiologic workup. 2. Biopsies of rectum ([id number]). ANESTHESIA: IV sedation. INDICATION FOR PROCEDURE: This is a 73-year-old, presenting overnight with some lower GI bleeding. Plan is to proceed with a flexible colonoscopy with biopsies as indicated. Potential risks including bleeding and perforation were discussed, and the patient wishes to proceed. DETAILS OF PROCEDURE: The patient was taken to the operating room and placed in a left lateral decubitus position. IV sedation was administered, after which the initial digital rectal exam was performed. This had a scant amount of blood present. The scope was then passed into the rectum with there being some evident proctitis in the rectum with the mucosa being probably somewhat leathery, thickened, and some areas of blood streaking present. As one passed beyond roughly 10 to 15 cm from the dentate line, the remainder of the colon and colonoscopic examination was, however, entirely normal. The prep was generally quite good with there just being a small amount of liquid stool present. The latter was evacuated and sent for microbiologic workup. As the scope was then withdrawn, no additional abnormalities were noted within the rectum and multiple biopsies were then obtained. Minimal bleeding from the biopsy sites was seen and the procedure then concluded. The patient was taken to the recovery room in satisfactory condition. Fabio Benitez MD Job #: [id number]
== END 2018-04-10 17:00 | disposition home or self-care (01) ==
LOC: JP.ED 17:25 → JP.MS 20:48
PROVIDERS: ADMIT Surgery; ATTEND Surgery
DX: K92.2 Gastrointestinal hemorrhage, unspecified (principal); K62.89 Other specified diseases of anus and rectum; I10 Essential (primary) hypertension; E11.21 Type 2 diabetes mellitus with diabetic nephropathy; E66.9 Obesity, unspecified; Z68.32 Body mass index [BMI] 32.0-32.9, adult; J44.9 Chronic obstructive pulmonary disease, unspecified; I27.20 Pulmonary hypertension, unspecified; E78.00 Pure hypercholesterolemia, unspecified; Z87.891 Personal history of nicotine dependence; Z79.01 Long term (current) use of anticoagulants; Z79.82 Long term (current) use of aspirin; Z79.84 Long term (current) use of oral hypoglycemic drugs; Z79.899 Other long term (current) drug therapy; Z88.8 Allergy status to other drugs, medicaments and biological substances; Z88.5 Allergy status to narcotic agent
CPT/HCPCS: 36415; 45380; 80048; 85025; 85610; 87046; 87177; 87209; 87493; 87899; 88305; 90471; 90732; 96360; 96361; 99284; 99285; A9270; G0009; G0378; J2704; J3010; J7120

== ENCOUNTER 2018-04-12 09:09 | Emergency (ER) | payer MEDICARE ==
[2018-04-12 09:21] VITALS: BP 159/68
--- NOTE | 2018-04-12 09:58 | EDM.PDOC ---
ED HPI GENERAL MEDICAL PROBLEM - General Chief Complaint: Gastrointestinal Problem Stated Complaint: BEEN ILL SINCE MONDAY AFTER COLONSCOPY Time Seen by Provider: 04/12/18 09:35 Source of Information: Reports: Patient, Family History Limitations: Reports: No Limitations - History of Present Illness INITIAL COMMENTS - FREE TEXT/NARRATIVE: 73-year-old female was discharged from the hospital 2 days ago with colitis, proctitis and placed on antibiotics. She is upset that when she takes her antibiotic she still has watery diarrhea and thinks that are not working. She did not take medicine this morning, she's only had 1 day of antibiotics. I discussed her case with the hospitalist, he actually tried to encourage her to stay an extra day or 2 but she refused and left. She did not redevelop any blood in her stool, fever, significant pain and has no nausea or vomiting. Associated Symptoms: Denies: Chest Pain, Cough, Loss of Appetite, Nausea/ Vomiting, Shortness of Breath, Weakness - Related Data Allergies Allergy/AdvReac Type Severity Reaction Status Date / Time hydrochlorothiazide Allergy Other Verified 04/12/18 09:22 [From Dyazide] hydrocodone Allergy Other Verified 04/12/18 09:22 loperamide [From Imodium A-D] Allergy Cannot Verified 04/12/18 09:22 Remember oxybutynin Allergy Other Verified 04/12/18 09:22 [id number] Reductase Allergy Other Verified 04/12/18 09:22 Inhibitor triamterene [From Dyazide] Allergy Other Verified 04/12/18 09:22 budesonide [From Symbicort] AdvReac Nausea and Verified 04/12/18 09:22 Vomiting formoterol fumarate AdvReac Nausea and Verified 04/12/18 09:22 [From Symbicort] Vomiting pregabalin [From Lyrica] AdvReac Headache Verified 04/12/18 09:22 tizanidine AdvReac Nausea Verified 04/12/18 09:22 Home Meds: Home Meds Aspirin [Adult Low Dose Aspirin EC] 81 mg PO DAILY 05/09/13 [History] Hydroxychloroquine Sulfate 400 mg PO DAILY 05/09/13 [History] cycloSPORINE [Restasis] 1 drop EYEBOTH BID 05/09/13 [History] Gabapentin [Neurontin] 600 mg PO BID 01/07/15 [History] Loratadine [Allergy Relief] 10 mg PO DAILY 01/07/15 [History] Losartan Potassium [Cozaar] 100 mg PO DAILY 01/07/15 [History] Albuterol [Proventil Neb Soln] 3 ml INH Q4H PRN 09/22/15 [History] Albuterol [Ventolin HFA] 2 puff INH Q6H PRN 09/22/15 [History] Calcium Citrate/Vitamin D3 [Calcium Citrate + D] 200 - 250 mg PO BID 09/22/15 [ History] Furosemide 40 mg PO DAILY 09/22/15 [History] Gabapentin [Neurontin] 1,200 mg PO QPM 01/05/16 [History] Acetaminophen 1,000 mg PO Q8H PRN 05/17/16 [History] Ferrous Sulfate 325 mg PO TID 05/17/16 [History] Magnesium Oxide 400 mg PO TID 05/17/16 [History] Naproxen 500 mg PO BID 05/17/16 [History] amLODIPine Besylate [Amlodipine Besylate] 10 mg PO DAILY 11/15/17 [History] Rivaroxaban [Xarelto] 1 tab PO DAILY 04/09/18 [History] Ciprofloxacin HCl [Cipro] 500 mg PO BID #14 tablet 04/10/18 [Rx] metroNIDAZOLE [Flagyl] 500 mg PO Q8H #21 tab 04/10/18 [Rx] Past Medical History HEENT History: Reports: Glaucoma, Impaired Vision Other HEENT History: Otitis externa of right ear, bilateral dry eyes Cardiovascular History: Reports: CAD, High Cholesterol, Hypertension, SOB on Exertion Other Cardiovascular History: RBBB,ventricular diastolic dysfunction Respiratory History: Reports: Asthma, COPD, Other (See Below) Other Respiratory History: pulmonary hypertension. suppose to be on home O2 due to COPD, patient discontinued use and sent equipment with oxygen supplier. Patient normally on 2L continuous at home. Gastrointestinal History: Reports: Chronic Diarrhea Genitourinary History: Reports: Diabetic Nephropathy, Urinary Incontinence [employer] History: Reports: Musculoskeletal History: Reports: Arthritis, Back Pain, Chronic, Fracture Other Musculoskeletal History: fx ankle Neurological History: Reports: None Psychiatric History: Reports: None Endocrine/Metabolic History: Reports: Diabetes, Type II, Obesity/BMI 30+, Osteoporosis Other Endocrine/Metabolic History: lupus Hematologic History: Reports: Anticoagulation Therapy Immunologic History: Reports: SLE Other Immunologic History: lupus anticoagulant positive Oncologic (Cancer) History: Reports: None Dermatologic History: Reports: Venous Stasis Dermatitis - Infectious Disease History Infectious Disease History: Reports: Chicken Pox - Past Surgical History Respiratory Surgical History: Reports: None Female Surgical History: Reports: Breast Biopsy Musculoskeletal Surgical History: Reports: Other (See Below) Other Musculoskeletal Surgeries/Procedures:: left ankle repair Oncologic Surgical History: Reports: Biopsy of Breast Dermatological Surgical History: Reports: Skin Biopsy Social & Family History - Tobacco Use Smoking Status *Q: Never Smoker - Caffeine Use Caffeine Use: Reports: Coffee Other Caffeine Use: 3 cups coffee daily, 1 can pop dailty - Recreational Drug Use Recreational Drug Use: No - Living Situation & Occupation Living situation: Reports: Single, Alone (lives alone in her home in [place], [place]., 2 children; son Palmer,who visits on weekends, Daughter two years ago of overdose. 3 grandchildren.) ED ROS GENERAL - Review of Systems Review Of Systems: See Below Constitutional: Reports: Malaise. Denies: Fever, Chills HEENT: Reports: No Symptoms Respiratory: Denies: Shortness of Breath Cardiovascular: Denies: Chest Pain GI/Abdominal: Reports: Diarrhea. Denies: Nausea, Vomiting Skin: Reports: No Symptoms Neurological: Reports: No Symptoms ED EXAM, GI/ABD - Physical Exam Exam: See Below Exam Limited By: No Limitations General Appearance: Alert, No Apparent Distress Eyes: Bilateral: Normal Appearance (Good hydration, no jaundice) Respiratory/Chest: No Respiratory Distress, Lungs Clear GI/Abdominal Exam: Normal Bowel Sounds, Soft, Tender (Reacts with a small amount of discomfort with palpation across the lower abdomen) Course - Vital Signs Last Recorded V/S: Last Vital Signs Temp 97.0 F 04/12/18 09:20 Pulse 83 04/12/18 09:20 Resp 16 04/12/18 09:20 BP 159/68 H 04/12/18 09:20 Pulse Ox 96 04/12/18 09:20 - Re-Assessments/Exams Free Text/Narrative Re-Assessment/Exam: 04/12/18 09:57 Discussed the situation with the hospitalist and the patient. Reviewed her lab results, her stool cultures and C. difficile were negative. She was encouraged to continue with the antibiotics as prescribed, increase diet and activity as tolerated and recheck Monday as scheduled. Departure - Departure Time of Disposition: 10:18 Disposition: Home, Self-Care 01 Condition: Good Clinical Impression: Diarrhea - Discharge Information Instructions: Diarrhea, Adult Referrals: Eren Koenig MD [Primary Care Provider] - Forms: ED Department Discharge Care Plan Goals: Continue your medications as prescribed, recheck Monday as scheduled. Advance diet as tolerated and advised by your Hospital doctors and return sooner if worsening or you develop other concerns.
== END 2018-04-12 10:17 | disposition home or self-care (01) ==
LOC: JP.ED 09:09
DX: R19.7 Diarrhea, unspecified (principal); I25.10 Atherosclerotic heart disease of native coronary artery without angina pectoris; E78.00 Pure hypercholesterolemia, unspecified; I10 Essential (primary) hypertension; E11.21 Type 2 diabetes mellitus with diabetic nephropathy; E11.9 Type 2 diabetes mellitus without complications; Z79.01 Long term (current) use of anticoagulants; Z88.8 Allergy status to other drugs, medicaments and biological substances; Z88.5 Allergy status to narcotic agent; Z79.899 Other long term (current) drug therapy; Z79.82 Long term (current) use of aspirin
CPT/HCPCS: 99283; 99284

== ENCOUNTER 2018-04-29 09:55 | Emergency (ER) | payer MEDICARE ==
[2018-04-29 10:21] VITALS: BP 151/55
--- NOTE | 2018-04-29 10:45 | EDM.PDOC ---
ED HPI GENERAL MEDICAL PROBLEM - General Chief Complaint: Lower Extremity Injury/Pain Stated Complaint: SWOLLEN/NUMB FEET Time Seen by Provider: 04/29/18 10:30 Source of Information: Reports: Patient, Old Records, RN History Limitations: Reports: No Limitations - History of Present Illness INITIAL COMMENTS - FREE TEXT/NARRATIVE: 73 yo female presents with a worsening of her chronic peripheral neuropathy. Is on gapapentin already. Says blood sugars have been good. Has not been seen lately for this in the clinic. Has no back pain. Notices also that there is trace edema in her lower legs and is concerned about this. Has had diarrhea for the past 3 weeks since having colonoscopy. Saw her primary for this and he said it would go away by itself, but so far it has not. No fever or bloody stool. Does not get relief with yogurt. Onset: Gradual Duration: Day(s):, Week(s): Location: Reports: Abdomen (GI tract), Lower Extremity, Left, Lower Extremity, Right Quality: Reports: Other (no pain) Severity: Moderate Improves with: Reports: Other (leg swelling better with elevation. 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) (usual meds) - Related Data Allergies Allergy/AdvReac Type Severity Reaction Status Date / Time hydrochlorothiazide Allergy Other Verified 04/29/18 10:23 [From Dyazide] oxybutynin Allergy Other Verified 04/29/18 10:23 [id number]-Jak Reductase Allergy Other Verified 04/29/18 10:23 Inhibitor triamterene [From Dyazide] Allergy Other Verified 04/29/18 10:23 budesonide [From Symbicort] AdvReac Nausea and Verified 04/29/18 10:23 Vomiting formoterol fumarate AdvReac Nausea and Verified 04/29/18 10:23 [From Symbicort] Vomiting pregabalin [From Lyrica] AdvReac Headache Verified 04/29/18 10:23 tizanidine AdvReac Nausea Verified 04/29/18 10:23 Home Meds: Home Meds Aspirin [Adult Low Dose Aspirin EC] 81 mg PO DAILY 05/09/13 [History] Hydroxychloroquine Sulfate 400 mg PO DAILY 05/09/13 [History] cycloSPORINE [Restasis] 1 drop EYEBOTH BID 05/09/13 [History] Gabapentin [Neurontin] 600 mg PO BID 01/07/15 [History] Loratadine [Allergy Relief] 10 mg PO DAILY 01/07/15 [History] Losartan Potassium [Cozaar] 100 mg PO DAILY 01/07/15 [History] Albuterol [Proventil Neb Soln] 3 ml INH Q4H PRN 09/22/15 [History] Albuterol [Ventolin HFA] 2 puff INH Q6H PRN 09/22/15 [History] Calcium Citrate/Vitamin D3 [Calcium Citrate + D] 200 - 250 mg PO BID 09/22/15 [ History] Furosemide 40 mg PO DAILY 09/22/15 [History] Gabapentin [Neurontin] 1,200 mg PO QPM 01/05/16 [History] Magnesium Oxide 400 mg PO TID 05/17/16 [History] Naproxen 500 mg PO BID 05/17/16 [History] amLODIPine Besylate [Amlodipine Besylate] 10 mg PO DAILY 11/15/17 [History] Rivaroxaban [Xarelto] 1 tab PO DAILY 04/09/18 [History] Hydrocodone/Acetaminophen [Hydrocodon-Acetaminophen 5-325] 1 tab PO Q4HR PRN 01/05 [History] Past Medical History HEENT History: Reports: Glaucoma, Impaired Vision Other HEENT History: Otitis externa of right ear, bilateral dry eyes Cardiovascular History: Reports: CAD, High Cholesterol, Hypertension, SOB on Exertion Other Cardiovascular History: RBBB,ventricular diastolic dysfunction Respiratory History: Reports: Asthma, COPD, Other (See Below) Other Respiratory History: pulmonary hypertension. suppose to be on home O2 due to COPD, patient discontinued use and sent equipment with oxygen supplier. Patient normally on 2L continuous at home. 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: Musculoskeletal History: Reports: Arthritis, Back Pain, Chronic, Fracture Other Musculoskeletal History: fx ankle Neurological History: Reports: None Psychiatric History: Reports: None Endocrine/Metabolic History: Reports: Diabetes, Type II, Obesity/BMI 30+, Osteoporosis Other Endocrine/Metabolic History: lupus Hematologic History: Reports: Anticoagulation Therapy Immunologic History: Reports: SLE Other Immunologic History: lupus anticoagulant positive Oncologic (Cancer) History: Reports: None Dermatologic History: Reports: Venous Stasis Dermatitis - Infectious Disease History Infectious Disease History: Reports: Chicken Pox - Past Surgical History Respiratory Surgical History: Reports: None Female Surgical History: Reports: Breast Biopsy Musculoskeletal Surgical History: Reports: Other (See Below) Other Musculoskeletal Surgeries/Procedures:: left ankle repair Oncologic Surgical History: Reports: Biopsy of Breast Dermatological Surgical History: Reports: Skin Biopsy Social & Family History - Tobacco Use Smoking Status *Q: Never Smoker - Caffeine Use Caffeine Use: Reports: Coffee Other Caffeine Use: 3 cups coffee daily, 1 can pop dailty - Living Situation & Occupation Living situation: Reports: Single, Alone (lives alone in her home in [place], [place]., 2 children; son Palmer,who visits on weekends, Daughter two years ago of overdose. 3 grandchildren.) Review of Systems - Review of Systems Review Of Systems: See Below Constitutional: Reports: No Symptoms Eyes: Reports: No Symptoms Ears: Reports: No Symptoms Nose: Reports: No Symptoms Mouth/Throat: Reports: No Symptoms Respiratory: Reports: No Symptoms Cardiovascular: Reports: Edema (legs bilat) GI/Abdominal: Reports: Diarrhea Genitourinary: Reports: No Symptoms Musculoskeletal: Reports: No Symptoms Skin: Reports: No Symptoms Neurological: Reports: Numbness (both legs) ED EXAM, GENERAL - Physical Exam Exam: See Below Exam Limited By: No Limitations General Appearance: Alert, WD/WN, No Apparent Distress Nose: Normal Inspection, Normal Mucosa, No Blood Throat/Mouth: Normal Inspection, Normal Lips, Normal Oropharynx, Normal Voice, No Airway Compromise Head: Atraumatic, Normocephalic Neck: Normal Inspection Respiratory/Chest: No Respiratory Distress, Lungs Clear, Normal Breath Sounds, No Accessory Muscle Use Cardiovascular: Regular Rate, Rhythm, Other (trace pitting edema of both LE's). No: No Edema GI/Abdominal: Normal Bowel Sounds, Soft, Non-Tender, No Distention Back Exam: Normal Inspection. No: CVA Tenderness (R), CVA Tenderness (L) Extremities: Normal Inspection, Normal Range of Motion, Non-Tender, Pedal Edema (trace pitting edema of both LE's below the knees.). No: No Pedal Edema Neurological: Alert, Oriented, CN II-XII Intact, Normal Cognition, Sensory/ Motor Deficit (subjective numbness of feet bilat. 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 Collect a stool specimen and take to your doctor for testing at his discretion. After stool collection you may try loperamide for diarrhea control. Elevate your legs to reduce swelling and avoid salty foods. Recheck with your doctor later this week to discuss your concerns. - My Orders Last 24 Hours: My Active Orders 04/29/18 10:52 CLOSTRIDIUM DIFFICILE BY PCR [RM] Stat - Assessment/Plan Last 24 Hours: My Active Orders 04/29/18 10:52 CLOSTRIDIUM DIFFICILE BY PCR [RM] Stat
== END 2018-04-29 11:40 | disposition home or self-care (01) ==
LOC: JP.ED 09:55
DX: G60.3 Idiopathic progressive neuropathy (principal); R19.7 Diarrhea, unspecified; E11.21 Type 2 diabetes mellitus with diabetic nephropathy; I25.10 Atherosclerotic heart disease of native coronary artery without angina pectoris; E78.00 Pure hypercholesterolemia, unspecified; I10 Essential (primary) hypertension; J44.9 Chronic obstructive pulmonary disease, unspecified; Z79.01 Long term (current) use of anticoagulants; Z79.82 Long term (current) use of aspirin; Z79.899 Other long term (current) drug therapy; Z88.8 Allergy status to other drugs, medicaments and biological substances
CPT/HCPCS: 99283; 99284

== ENCOUNTER 2018-05-11 23:56 | Inpatient (IN) | payer MEDICARE ==
[2018-05-12] MEDS ORDERED: LORazepam 1 MG Tab PO ONE (00:31)
--- NOTE | 2018-05-12 00:36 | EDM.PDOC ---
ED HPI GENERAL MEDICAL PROBLEM - General Chief Complaint: General Stated Complaint: MEDICAL Time Seen by Provider: 05/12/18 00:22 Source of Information: Reports: Patient, RN Notes Reviewed History Limitations: Reports: No Limitations - History of Present Illness INITIAL COMMENTS - FREE TEXT/NARRATIVE: 73-year-old female presents emergency department today with multiple complaints #1 she has numbness and tingling in her feet with a known history of peripheral neuropathy, she is complained of numbness around her lips following a panic attack and she complains of slurred speech that is been going on for 1 week, very difficult historian 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 - Related Data Allergies Allergy/AdvReac Type Severity Reaction Status Date / Time hydrochlorothiazide Allergy Other Verified 05/12/18 00:17 [From Dyazide] oxybutynin Allergy Other Verified 05/12/18 00:17 Ifejpep-Rks-Icx Reductase Allergy Other Verified 05/12/18 00:17 Inhibitor triamterene [From Dyazide] Allergy Other Verified 05/12/18 00:17 budesonide [From Symbicort] AdvReac Nausea and Verified 05/12/18 00:17 Vomiting formoterol fumarate AdvReac Nausea and Verified 05/12/18 00:17 [From Symbicort] Vomiting pregabalin [From Lyrica] AdvReac Headache Verified 05/12/18 00:17 tizanidine AdvReac Nausea Verified 05/12/18 00:17 Home Meds: Home Meds Aspirin [Adult Low Dose Aspirin EC] 81 mg PO DAILY 05/09/13 [History] Hydroxychloroquine Sulfate 400 mg PO DAILY 05/09/13 [History] cycloSPORINE [Restasis] 1 drop EYEBOTH BID 05/09/13 [History] Gabapentin [Neurontin] 600 mg PO BID 01/07/15 [History] Loratadine [Allergy Relief] 10 mg PO DAILY 01/07/15 [History] Losartan Potassium [Cozaar] 100 mg PO DAILY 01/07/15 [History] Albuterol [Proventil Neb Soln] 3 ml INH Q4H PRN 09/22/15 [History] Albuterol [Ventolin HFA] 2 puff INH Q6H PRN 09/22/15 [History] Calcium Citrate/Vitamin D3 [Calcium Citrate + D] 200 - 250 mg PO BID 09/22/15 [ History] Furosemide 40 mg PO DAILY 09/22/15 [History] Gabapentin [Neurontin] 1,200 mg PO QPM 01/05/16 [History] Magnesium Oxide 400 mg PO TID 05/17/16 [History] Naproxen 500 mg PO BID 05/17/16 [History] amLODIPine Besylate [Amlodipine Besylate] 10 mg PO DAILY 11/15/17 [History] Rivaroxaban [Xarelto] 1 tab PO DAILY 04/09/18 [History] Hydrocodone/Acetaminophen [Hydrocodon-Acetaminophen 5-325] 1 tab PO Q4HR PRN 01/05 [History] Past Medical History HEENT History: Reports: Glaucoma, Impaired Vision Other HEENT History: Otitis externa of right ear, bilateral dry eyes Cardiovascular History: Reports: CAD, High Cholesterol, Hypertension, SOB on Exertion Other Cardiovascular History: RBBB,ventricular diastolic dysfunction Respiratory History: Reports: Asthma, COPD, Other (See Below) Other Respiratory History: pulmonary hypertension. suppose to be on home O2 due to COPD, patient discontinued use and sent equipment with oxygen supplier. Patient normally on 2L continuous at home. Uses O2 at night. 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: Musculoskeletal History: Reports: Arthritis, Back Pain, Chronic, Fracture Other Musculoskeletal History: fx ankle Endocrine/Metabolic History: Reports: Diabetes, Type II, Obesity/BMI 30+, Osteoporosis Other Endocrine/Metabolic History: lupus Hematologic History: Reports: Anticoagulation Therapy Immunologic History: Reports: SLE Other Immunologic History: lupus anticoagulant positive Dermatologic History: Reports: Venous Stasis Dermatitis - Infectious Disease History Infectious Disease History: Reports: Chicken Pox - Past Surgical History Respiratory Surgical History: Reports: None Female Surgical History: Reports: Breast Biopsy Musculoskeletal Surgical History: Reports: Other (See Below) Other Musculoskeletal Surgeries/Procedures:: left ankle repair Oncologic Surgical History: Reports: Biopsy of Breast Dermatological Surgical History: Reports: Skin Biopsy Social & Family History - Tobacco Use Smoking Status *Q: Never Smoker Second Hand Smoke Exposure: No - Caffeine Use Caffeine Use: Reports: Coffee Other Caffeine Use: 3 cups coffee daily, 1 can pop dailty - Recreational Drug Use Recreational Drug Use: No - Living Situation & Occupation Living situation: Reports: Single, Alone (lives alone in her home in [place], [place]., 2 children; son Palmer,who visits on weekends, Daughter two years ago of overdose. 3 grandchildren.) ED ROS GENERAL - Review of Systems Review Of Systems: See Below Constitutional: Reports: No Symptoms HEENT: Reports: No Symptoms Respiratory: Reports: No Symptoms Cardiovascular: Reports: No Symptoms GI/Abdominal: Reports: No Symptoms Neurological: Reports: Numbness, Tingling, Trouble Speaking ED EXAM, GENERAL - Physical Exam Exam: See Below Free Text/Narrative:: General: Female, not in any distress, alert and oriented x3 HEENT: head is atraumatic normocephalic, eyes pupils equal round reactive to light, sclera clear no conjunctivitis appreciated. Ears tympanic membranes clear and lemus landmarks and light reflex are present bilaterally canals are clear. Nose no septal deviation, nares are clear, no blood present. Mouth mucosa is moist and pink no erythema or exudate noted in soft palate, tongue is midline uvula is midline, dentition is intact. Neck: Supple no thyromegaly no tracheal deviation. Nodes: Cervical nodes subclavicular nodes nontender no palpable lymphadenopathy noted. Lungs: clear to auscultation bilaterally with symmetrical respirations, no adventitious noise appreciated. CV: Regular rate and rhythm S1 and S2 appreciated 2/6 systolic ejection murmur best appreciated on left sternal border, no rubs or gallops noted. Abdomen: Soft,, obese nontender, no palpable masses or organomegaly appreciated , no distention no guarding bowel sounds are present, . Neuro: Cranial nerves II test with pupillary light reflex 4 mm to 2 mm bilaterally, CN III test pupillary constriction, limited elevation and eye abduction bilaterally, CN IV downward movement of eyes bilaterally, CN V good jaw movement, CN lateral deviation of the eyes bilaterally to finger movement , CN VII symmetrical smile shows teeth without difficulty, CN VIII pass finger rub to ears bilaterally, CN IX adequate voice and tone, CN X adequate voice and tone no difficulty swallowing, CN XI can shrug shoulders without difficulty, CN XII can stick tongue out without difficulty, cranial nerves II to XII intact as tested, felipe 5 x 5 in upper and lower extremities Skin: Warm and dry, intact Extremities: No lower extremity edema appreciated, pedal pulse is +2. Course - Vital Signs Last Recorded V/S: Last Vital Signs Temp 98.2 F 05/12/18 00:08 Pulse 56 L 02/23/19 00:08 Resp 20 05/12/18 00:08 BP 138/72 05/12/18 00:08 Pulse Ox 92 L 05/12/18 00:08 - Orders/Labs/Meds Orders: Active Orders 24 hr Category Date Time Status Peripheral IV Care [RC] . DIRECTED Care 05/12/18 01:37 Active PATIENT RETYPE [BBK] Stat Lab 05/12/18 00:35 Results RED BLOOD CELLS LP [BBK] Stat Lab 05/12/18 00:35 Results TYPE AND SCREEN [BBK] Stat Lab 05/12/18 00:35 Results Lactated Ringers [Ringers, Lactated] 1,000 ml Med 05/12/18 01:45 Active IV ASDIRECTED Sodium Chloride 0.9% [Saline Flush] Med 05/12/18 01:37 Active 10 ml FLUSH ASDIRECTED PRN Peripheral IV Insertion Adult [OM.PC] Urgent Oth 05/12/18 01:37 Ordered Transfuse Red Blood Cells [COMM] Stat Oth 05/12/18 00:52 Ordered Medication Orders Lactated Ringer's (Ringers, Lactated) 1,000 mls @ 125 mls/hr IV ASDIRECTED JERRI Last Admin: 05/12/18 01:56 Dose: 125 mls/hr Sodium Chloride (Saline Flush) 10 ml FLUSH ASDIRECTED PRN PRN Reason: Keep Vein Open Last Admin: 05/12/18 01:55 Dose: 10 ml Labs: Laboratory Tests 05/12/18 05/12/18 05/12/18 Range/Units 00:35 00:35 00:35 WBC 3.7 L (4.5-11.0) K/uL RBC 2.01 L (3.30-5.50) M/uL Hgb 5.0 L* D (12.0-15.0) g/dL Hct 17.9 L (36.0-48.0) % MCV 89 (80-98) fL MCH 25 L (27-31) pg MCHC 28 L (32-36) % Plt Count 145 L (150-400) K/uL Neut % (Auto) 73 H (36-66) % Lymph % (Auto) 19 L (24-44) % [place] % (Auto) 6 (2-6) % Eos % (Auto) 2 (2-4) % Baso % (Auto) 1 (0-1) % Sodium 146 (140-148) mmol/L Potassium 4.0 (3.6-5.2) mmol/L Chloride 110 H (100-108) mmol/L Carbon Dioxide 27 (21-32) mmol/L Anion Gap 13.0 (5.0-14.0) mmol/L BUN 37 H (7-18) mg/dL Creatinine 1.2 H (0.6-1.0) mg/dL Est Cr Clr Drug Dosing 34.01 mL/min Estimated GFR (MDRD) 44 L (>60) Glucose 134 H (74-106) mg/dL Lactic Acid 1.2 (0.4-2.0) mmol/L Calcium 8.6 (8.5-10.1) mg/dL Total Bilirubin 0.3 (0.2-1.0) mg/dL AST 32 (15-37) U/L ALT 16 (12-78) U/L Alkaline Phosphatase 64 (46-116) U/L Troponin I 0.022 (0.000-0.056) ng/mL Total Protein 6.6 (6.4-8.2) g/dL Albumin 2.3 L (3.4-5.0) g/dL Globulin 4.3 H (2.3-3.5) g/dL Albumin/Globulin Ratio 0.5 L (1.2-2.2) Ethyl Alcohol mg/dL Blood Type Gel Antibody Screen Crossmatch 05/12/18 05/12/18 Range/Units 00:35 00:35 WBC (4.5-11.0) K/uL RBC (3.30-5.50) M/uL Hgb (12.0-15.0) g/dL Hct (36.0-48.0) % MCV (80-98) fL MCH (27-31) pg MCHC (32-36) % Plt Count (150-400) K/uL Neut % (Auto) (36-66) % Lymph % (Auto) (24-44) % [place] % (Auto) (2-6) % Eos % (Auto) (2-4) % Baso % (Auto) (0-1) % Sodium (140-148) mmol/L Potassium (3.6-5.2) mmol/L Chloride (100-108) mmol/L Carbon Dioxide (21-32) mmol/L Anion Gap (5.0-14.0) mmol/L BUN (7-18) mg/dL Creatinine (0.6-1.0) mg/dL Est Cr Clr Drug Dosing mL/min Estimated GFR (MDRD) (>60) Glucose (74-106) mg/dL Lactic Acid (0.4-2.0) mmol/L Calcium (8.5-10.1) mg/dL Total Bilirubin (0.2-1.0) mg/dL AST (15-37) U/L ALT (12-78) U/L Alkaline Phosphatase (46-116) U/L Troponin I (0.000-0.056) ng/mL Total Protein (6.4-8.2) g/dL Albumin (3.4-5.0) g/dL Globulin (2.3-3.5) g/dL Albumin/Globulin Ratio (1.2-2.2) Ethyl Alcohol < 3 mg/dL Blood Type A POSITIVE Gel Antibody Screen Negative Crossmatch See Detail Meds: Medications Generic Name Dose Route Start Last Admin Trade Name Freq PRN Reason Stop Dose Admin Lactated Ringer's 1,000 mls @ 125 mls/hr 05/12/18 01:45 05/12/18 01:56 Ringers, Lactated IV 125 mls/hr ASDIRECTED JERRI Administration Sodium Chloride 10 ml 05/12/18 01:37 05/12/18 01:55 Saline Flush FLUSH 10 ml ASDIRECTED PRN Administration Keep Vein Open Discontinued Medications Generic Name Dose Route Start Last Admin Trade Name Freq PRN Reason Stop Dose Admin Lorazepam 1 mg 05/12/18 00:31 05/12/18 00:45 Ativan PO 05/12/18 00:32 1 mg ONETIME ONE Administration Departure - Departure Time of Disposition: 02:00 Disposition: Admitted As Inpatient 68 Condition: Fair Clinical Impression: Normochromic anemia - Discharge Information Referrals: PCP,None [Primary Care Provider] - Forms: ED Department Discharge - My Orders Last 24 Hours: My Active Orders 05/12/18 00:35 PATIENT RETYPE [BBK] Stat RED BLOOD CELLS LP [BBK] Stat TYPE AND SCREEN [BBK] Stat 05/12/18 00:52 Transfuse Red Blood Cells [COMM] Stat 05/12/18 01:37 Peripheral IV Care [RC] . DIRECTED Sodium Chloride 0.9% [Saline Flush] 10 ml FLUSH ASDIRECTED PRN Peripheral IV Insertion Adult [OM.PC] Urgent 05/12/18 01:45 Lactated Ringers [Ringers, Lactated] 1,000 ml IV ASDIRECTED - Assessment/Plan Last 24 Hours: My Active Orders 05/12/18 00:35 PATIENT RETYPE [BBK] Stat RED BLOOD CELLS LP [BBK] Stat TYPE AND SCREEN [BBK] Stat 05/12/18 00:52 Transfuse Red Blood Cells [COMM] Stat 05/12/18 01:37 Peripheral IV Care [RC] . DIRECTED Sodium Chloride 0.9% [Saline Flush] 10 ml FLUSH ASDIRECTED PRN Peripheral IV Insertion Adult [OM.PC] Urgent 05/12/18 01:45 Lactated Ringers [Ringers, Lactated] 1,000 ml IV ASDIRECTED Plan: Assessment Acuity = acute Site and laterality = severe anemia complicated patient with known history of coronary artery disease, COPD, diabetes mellitus type 2 and peripheral neuropathy colonoscopy done one month prior for rectal bleeding hemoglobin at that time was around 10 Etiology = unknown etiology Manifestations = difficulty with speech Location of injury = Home Lab values = hemoglobin low at 5.0 consistent with normochromic anemia platelets low at 145 consists from cytopenia creatinine elevated 1.2 consistent with chronic renal failure stage G IIIB troponin within the normal range slightly elevated 0.0-2 of uncertain significance Plan 1 unit of blood has been ordered, called discussed case with Dr. Lund physician oracle ebs consultant at 150 he kindly agreed, and evaluate the patient in the hospital for admission This note was dictated using [employer] voice recognition software please call with any questions on syntax or grammar.
--- NOTE | 2018-05-12 01:18 | CRLCT ---
INDICATION: Difficulty with speech for 1 week TECHNIQUE: Head CT without contrast. COMPARISON: None FINDINGS: CSF spaces: Within normal limits for age. Brain parenchyma: There are nonspecific low attenuation white matter changes consistent with chronic microvascular disease. No sign of mass, hemorrhage, or midline shift. Skull base and calvarium: The visualized paranasal sinuses and mastoid air cells demonstrate no acute or significant findings. The visualized orbits are grossly unremarkable. No skull fractures. There is intracranial atherosclerosis. IMPRESSION: 1. No acute findings. 2. Nonspecific white matter disease, typical of chronic microvascular disease. Please note that all CT scans at this facility use dose modulation, iterative reconstruction, and/or weight-based dosing when appropriate to reduce radiation dose to as low as reasonably achievable. Dictated by Thelma Chavez MD @ May 12 2018 1:15AM Signed by Dr. Thelma Chavez @ May 12 2018 1:16AM
[2018-05-12] MEDS ORDERED: Sodium Chloride 0.9% 10 ML Syringe FLUSH PRN (01:37)
[2018-05-12] MEDS: Lactated Ringers 1,000 ML IV SCH ×2 (01:56→13:33)
[2018-05-12] MEDS ORDERED: Albuterol 0.083% 2.5 MG/3 ML Neb Soln INH PRN (02:04)
[2018-05-12] MEDS ORDERED: Albuterol 8 GM Inhaler INH PRN (02:04)
[2018-05-12] MEDS ORDERED: Furosemide 20 MG/2 ML VIAL IVPUSH ONE (02:55)
--- NOTE | 2018-05-12 05:22 | HP ---
IDENTIFYING DATA: Radha Obrien is a 73-year-old, single, female from [place]. CHIEF COMPLAINT: Complaints of general weakness, generalized tingling and numbness in the perioral area. HISTORY OF PRESENT ILLNESS: This is an elderly female who has a history of type 2 diabetes, hypertension, chronic rheumatoid arthritis, and obstructive pulmonary disease as well as reported congestive heart failure and DVT with anticoagulant therapy. She noted development of numbness, weakness, and slurred speech this afternoon, and was transferred to the emergency room by ambulance personnel. At the time of presentation, she was found to be profoundly anemic. She does have a noted history of bright red rectal bleeding of 1 month ago with hospitalization and evaluation revealing evidence of proctitis of unknown etiology. Biopsies were otherwise unremarkable. Hemoglobin was stable at greater than 10, and she had been on iron supplementation, which was discontinued approximately 3 weeks ago. She denies evidence of recurrent melena or hematochezia. No bright red rectal bleeding. No dyspepsia, nausea, emesis, or hematemesis developing prior to presentation this evening. Appetite has been stable. PAST MEDICAL HISTORY: Coronary artery disease with congestive heart failure, hypertension, chronic obstructive pulmonary disease with oxygen supplementation on a p.r.n. basis, and history of DVT with Xarelto therapy. Additionally, she has a history of glaucoma and mildly diminished hearing acuity. She is followed by Rheumatology Services for reported rheumatoid arthritis. ALLERGIES: REPORTED TO HYDROCHLOROTHIAZIDE, OXYBUTYNIN, STATINS, TRIAMTERENE, BUDESONIDE INHALER, FORMOTEROL INHALER, PREGABALIN, AND TIZANIDINE. CURRENT MEDICATIONS: Aspirin 81 mg daily; hydroxychloroquine 400 mg daily; cyclosporine eye drops 1 drop to both eyes b.i.d.; gabapentin 600 mg morning and noon, 1200 mg at bedtime; loratadine 10 mg daily; losartan 100 mg daily; albuterol metered-dose inhaler or nebulizer q.4 hours p.r.n.; calcium citrate with vitamin D3 one tablet b.i.d.; furosemide 40 mg daily; magnesium oxide 400 mg t.i.d.; naproxen 500 mg b.i.d.; amlodipine 10 mg daily; Xarelto 1 tablet daily; hydrocodone with acetaminophen 5/325 mg q.4 hours p.r.n.; and oxygen by nasal cannula used p.r.n., primarily at nighttime. HABITS: The patient denies alcohol or tobacco use. Caffeine intake averages 3 cups of coffee daily. IMMUNIZATIONS: Reports she has received annual flu vaccine. SOCIAL HISTORY: Resides independently in her [place] residence. Does have a son in the area who provides transportation and assistance with appointments and errands. She no longer drives. FAMILY HISTORY: Unable to provide additional factual information. REVIEW OF SYSTEMS: NEUROLOGIC: No history of strokes or seizures. Peripheral neuropathy presumptively of diabetes is noted. Does have recognized glaucoma. CARDIAC: No chest pain, palpitations, or syncope. History of coronary artery disease and congestive heart failure with dependent edema as well as hypertension and type 2 diabetes, currently on no diabetic pharmacologic therapies. RESPIRATORY: COPD. No fevers, chills, increased shortness of breath, or purulent sputum production. GI: Denies dyspepsia. No history of hepatitis or jaundice. : No urinary incontinence. Records indicate a history of stage III renal disease. MUSCULOSKELETAL: Chronic back pain. PHYSICAL EXAMINATION: GENERAL: Appearance is that of an elderly female, resting comfortably in bed. VITAL SIGNS: Temperature 98.2, pulse 56, respiratory rate 20, blood pressure 138/72, and O2 saturations 92% with supplemental O2. HEENT: Hearing is acceptable in a quiet exam room. Ears reveal normal canals and TMs. Oral mucosa is moist. No facial asymmetries are noted. The patient notes subjective numbness in the perioral area. NECK: Brisk carotid pulses. No bruits or JVD. LUNGS: Mildly diminished sounds, non-tachypneic. No wheezes or rales. HEART: Regular without gallops. Grade 2 to 3 murmur at the left sternal border and aortic area is noted in late systole. ABDOMEN: Soft. No organomegaly. No guarding, rebound, or referred pain. No CVA tenderness. Mild discomfort at the right upper quadrant and epigastrium. No lower abdominal tenderness. Active sounds are noted. Good femoral pulses. AND RECTAL: Omitted. EXTREMITIES: Chronic edematous changes in the legs. No current open lesions. LABORATORY DATA: Labs on admission; WBC 3.7, hemoglobin low at 5.0, hematocrit 17.9, MCV 89, MCH 25. Sodium 146, potassium 4, BUN elevated at 37, creatinine 1.2, GFR 44, glucose 134, lactic acid 1.2, AST 32, alkaline phosphatase 64, bilirubin 0.3. Troponin 0.022. Blood alcohol is negligible. IMPRESSION: 1. Presentation of weakness, numbness and tingling with marked anemia, progressive since hospitalization of March 2018. 2. Previous history of proctitis. The patient denies current rectal bleeding. 3. Type 2 diabetes. 4. Coronary artery disease with congestive heart failure. 5. Hypertension. 6. Obstructive pulmonary disease with O2 use. 7. History of rheumatoid arthritis, on oral suppressive therapies. 8. Diabetic peripheral neuropathy. 9. Stage III renal disease. PLAN: The patient is admitted to Inpatient Services for type and cross and transfusion of 2 units of packed red blood cells. Subsequent followup CBC will be obtained. She has not had evidence of gross rectal bleeding over the last 3 weeks in spite of worsening of her anemic state. Consider followup EGD to exclude the possibility of upper GI bleed source, noting recent colonoscopy revealed proctitis without other pathology. We will continue to monitor renal function and glucose during hospital stay, maintain on regular oral pharmacologic regimen with the exception of anticoagulant therapies at the current time. Luke Lund MD /[id number]
[2018-05-12] MEDS ORDERED: cycloSPORINE Ophth Drops U/D Box of 30 EYEBOTH SCH (09:00)
[2018-05-12] MEDS ORDERED: Glucose Gel 15 GM in 37.5 GM Tube PO PRN (09:52)
[2018-05-12] MEDS ORDERED: 50% Dextrose in Water 50 ML Syringe IV PRN (09:52)
--- NOTE | 2018-05-12 09:52 | PCM.PN ---
- General Info Date of Service: 05/12/18 Subjective Update: Ms. Obrien is a 73-year-old woman who was admitted through the emergency department early this morning with weakness and recent history of numbness tingling in her extremities. On evaluation in emergency department was found to have a hemoglobin of 5. She is in the process of receiving her second unit of red blood cells and seen this morning. She had a history one month ago of bright red blood per rectum, colonoscopy showed evidence of distal proctitis which was felt to be the source of bleeding. It was felt to be likely infectious and she was treated with a one-week course of ciprofloxacin and metronidazole. She denies any recent bleeding or appearance of melenic stools. She is feeling somewhat better after having received some blood. - Review of Systems General: Reports: Weakness. Denies: Fever, Chills Pulmonary: Reports: Shortness of Breath. Denies: Pleuritic Chest Pain, Cough, Sputum, Hemoptysis, Wheezing Cardiovascular: Reports: Dyspnea on Exertion. Denies: Chest Pain, Palpitations , Orthopnea, PND, Edema, Lightheadedness Gastrointestinal: Denies: Abdominal Pain, Diarrhea, Difficulty Swallowing, Hematochezia, Melena, Nausea, Vomiting - Patient Data Vitals - Most Recent: Last Vital Signs Temp 97.0 F 05/12/18 09:00 Pulse 77 05/12/18 08:30 Resp 16 05/12/18 09:00 BP 135/44 L 05/12/18 09:00 Pulse Ox 87 L 05/12/18 09:00 Weight - Most Recent: 167 lb 6.4 oz I&O - Last 24 Hours: Intake & Output 05/11/18 05/12/18 05/12/18 22:59 06:59 14:59 Intake Total 390 0 Output Total 1200 Balance -810 0 Lab Results Last 24 Hours: Laboratory Results - last 24 hr 05/12/18 05/12/18 05/12/18 Range/Units 00:35 00:35 00:35 WBC 3.7 L (4.5-11.0) K/uL RBC 2.01 L (3.30-5.50) M/uL Hgb 5.0 L* D (12.0-15.0) g/dL Hct 17.9 L (36.0-48.0) % MCV 89 (80-98) fL MCH 25 L (27-31) pg MCHC 28 L (32-36) % Plt Count 145 L (150-400) K/uL Neut % (Auto) 73 H (36-66) % Lymph % (Auto) 19 L (24-44) % [place] % (Auto) 6 (2-6) % Eos % (Auto) 2 (2-4) % Baso % (Auto) 1 (0-1) % Sodium 146 (140-148) mmol/L Potassium 4.0 (3.6-5.2) mmol/L Chloride 110 H (100-108) mmol/L Carbon Dioxide 27 (21-32) mmol/L Anion Gap 13.0 (5.0-14.0) mmol/L BUN 37 H (7-18) mg/dL Creatinine 1.2 H (0.6-1.0) mg/dL Est Cr Clr Drug Dosing 34.01 mL/min Estimated GFR (MDRD) 44 L (>60) Glucose 134 H (74-106) mg/dL Lactic Acid 1.2 (0.4-2.0) mmol/L Calcium 8.6 (8.5-10.1) mg/dL Total Bilirubin 0.3 (0.2-1.0) mg/dL AST 32 (15-37) U/L ALT 16 (12-78) U/L Alkaline Phosphatase 64 (46-116) U/L Troponin I 0.022 (0.000-0.056) ng/mL Total Protein 6.6 (6.4-8.2) g/dL Albumin 2.3 L (3.4-5.0) g/dL Globulin 4.3 H (2.3-3.5) g/dL Albumin/Globulin Ratio 0.5 L (1.2-2.2) Ethyl Alcohol mg/dL Blood Type Gel Antibody Screen Crossmatch 05/12/18 05/12/18 Range/Units 00:35 00:35 WBC (4.5-11.0) K/uL RBC (3.30-5.50) M/uL Hgb (12.0-15.0) g/dL Hct (36.0-48.0) % MCV (80-98) fL MCH (27-31) pg MCHC (32-36) % Plt Count (150-400) K/uL Neut % (Auto) (36-66) % Lymph % (Auto) (24-44) % [place] % (Auto) (2-6) % Eos % (Auto) (2-4) % Baso % (Auto) (0-1) % Sodium (140-148) mmol/L Potassium (3.6-5.2) mmol/L Chloride (100-108) mmol/L Carbon Dioxide (21-32) mmol/L Anion Gap (5.0-14.0) mmol/L BUN (7-18) mg/dL Creatinine (0.6-1.0) mg/dL Est Cr Clr Drug Dosing mL/min Estimated GFR (MDRD) (>60) Glucose (74-106) mg/dL Lactic Acid (0.4-2.0) mmol/L Calcium (8.5-10.1) mg/dL Total Bilirubin (0.2-1.0) mg/dL AST (15-37) U/L ALT (12-78) U/L Alkaline Phosphatase (46-116) U/L Troponin I (0.000-0.056) ng/mL Total Protein (6.4-8.2) g/dL Albumin (3.4-5.0) g/dL Globulin (2.3-3.5) g/dL Albumin/Globulin Ratio (1.2-2.2) Ethyl Alcohol < 3 mg/dL Blood Type A POSITIVE Gel Antibody Screen Negative Crossmatch See Detail Med Orders - Current: Current Medications Hydrocodone Bitart/Acetaminophen ([place] 325-5 Mg) 1 tab PO Q4H PRN PRN Reason: Pain (moderate 4-6) Albuterol (Proventil Neb Soln) 2.5 mg INH Q4H PRN PRN Reason: wheezing Albuterol (Ventolin Hfa) 0 gm INH Q6H PRN PRN Reason: Wheezing Amlodipine Besylate (Norvasc) 10 mg PO DAILY [facility] Cyclosporine (Restasis) 0 each EYEBOTH BID [facility] Furosemide (Lasix) 40 mg PO DAILY [facility] Gabapentin (Neurontin) 600 mg PO BID@0900,1400 [facility] Gabapentin (Neurontin) 1,200 mg PO BEDTIME [facility] Hydroxychloroquine Sulfate (Plaquenil) 400 mg PO DAILY [facility] Lactated Ringer's (Ringers, Lactated) 1,000 mls @ 125 mls/hr IV ASDIRECTED [facility] Last Admin: 05/12/18 01:56 Dose: 125 mls/hr Loratadine (Claritin Reditabs) 10 mg PO DAILY [facility] Losartan Potassium (Cozaar) 100 mg PO DAILY [facility] Magnesium Oxide (Magnesium Oxide) 400 mg PO TID [facility] Pantoprazole Sodium (Protonix Iv) 40 mg IVPUSH Q12H [facility] Sodium Chloride (Saline Flush) 10 ml FLUSH ASDIRECTED PRN PRN Reason: Keep Vein Open Last Admin: 05/12/18 01:55 Dose: 10 ml Discontinued Medications Furosemide (Lasix) 20 mg IVPUSH ONETIME ONE Stop: 05/12/18 02:56 Last Admin: 05/12/18 03:20 Dose: 20 mg Lorazepam (Ativan) 1 mg PO ONETIME ONE Stop: 05/12/18 00:32 Last Admin: 05/12/18 00:45 Dose: 1 mg - Exam Quality Assessment: Supplemental Oxygen, DVT Prophylaxis General: Alert, Oriented, Mild Distress Lungs: Clear to Auscultation, Normal Respiratory Effort, Decreased Breath Sounds. No: Rales, Rhonchi, Wheezing Cardiovascular: Regular Rate, Regular Rhythm, No Murmurs GI/Abdominal Exam: Soft, Non-Tender, No Organomegaly, No Distention Extremities: Non-Tender, No Pedal Edema - Problem List Review Problem List Initiated/Reviewed/Updated: Yes - My Orders Last 24 Hours: My Active Orders 05/12/18 08:52 HGB [HEMOGLOBIN] [HEME] Stat 05/12/18 09:45 Pantoprazole [ProTONIX IV] 40 mg IVPUSH Q12H - Plan Plan:: ASSESSMENT AND PLAN ACUTE BLOOD LOSS ANEMIA-symptoms of weakness with numbness and tingling, initial hemoglobin of 5. She denies recent history of hematochezia or melena. -Nothing by mouth -Protonix 40 mg IV every 12 hours -Serial hemoglobin levels -Consult Dr. Deng for EGD -May need to consider colonoscopy if no obvious source of bleeding identified on EGD TYPE 2 DIABETES MELLITUS -4 times a day glucometers -Low-dose sliding scale NovoLog COPD-oxygen dependent, no evidence of acute exacerbation -Continue outpatient medications MAINTENANCE ISSUES -DVT prophylaxis; SCUDs hold on anticoagulation because of probable acute bleed -GI prophylaxis; Protonix as above -Villeda catheter; not indicated -Nutrition; nothing by mouth -Nicotine dependence; not required CODE STATUS-FULL CODE ADMISSION STATUS-patient will be admitted to inpatient status, expect at least a 2 night hospital stay for evaluation and management of problems as outlined above. At the time of this admission I do not reasonably expected evaluation and management of this problem will require more than a 96 hour hospital stay. DISPOSITION-anticipate discharge to home after the hospital stay. PRIMARY CARE PROVIDER-
[2018-05-12] MEDS ORDERED: Pantoprazole 40 MG Vial IVPUSH SCH (11:00)
[2018-05-12] MEDS ORDERED: Propofol 200 MG/20 ML SDV ONE (12:31)
[2018-05-12] MEDS: Furosemide 40 MG Tab PO SCH (13:57)
[2018-05-12] MEDS: Hydroxychloroquine 200 MG Tab PO SCH (13:57)
[2018-05-12] MEDS: Loratadine 10 MG Tab.DIS PO SCH (13:57)
[2018-05-12] MEDS: Gabapentin 300 MG Cap PO SCH ×2 (13:57→15:09)
[2018-05-12] MEDS: Losartan 50 MG Tab PO SCH (13:57)
[2018-05-12] MEDS: amLODIPine 10 MG Tab PO SCH (13:57)
[2018-05-12] MEDS: Magnesium Oxide 400 MG Tab PO SCH ×3 (13:57→20:30)
[2018-05-12] MEDS: Insulin Lispro 100 Unit/ML 3 ML KwikPen SUBCUT SCH ×3 (14:50→21:28)
[2018-05-12] MEDS ORDERED: Bisacodyl 5 MG Tab PO ONE ×2 (15:00→20:00)
[2018-05-12] MEDS ORDERED: Polyethylene Glycol 3350 Powder 238 GM Bot PO ONE (17:00)
[2018-05-12] MEDS: Gabapentin 400 MG Cap PO SCH (20:32)
[2018-05-12] MEDS: cycloSPORINE Ophth Drops U/D Box of 30 EYEBOTH SCH (20:33)
[2018-05-13] MEDS: Acetaminophen/HYDROcodone 325-5 MG Tab PO PRN ×2 (02:40→21:07)
[2018-05-13] MEDS: Insulin Lispro 100 Unit/ML 3 ML KwikPen SUBCUT SCH ×4 (07:53→21:10)
[2018-05-13] MEDS ORDERED: Propofol 200 MG/20 ML SDV ONE ×2 (08:06→08:17)
[2018-05-13] MEDS ORDERED: fentaNYL 100 MCG/2 ML SDV ONE (08:11)
[2018-05-13] MEDS: Loratadine 10 MG Tab.DIS PO SCH (09:51)
[2018-05-13] MEDS: Gabapentin 300 MG Cap PO SCH ×2 (09:52→13:40)
[2018-05-13] MEDS: Furosemide 40 MG Tab PO SCH (09:52)
[2018-05-13] MEDS: Magnesium Oxide 400 MG Tab PO SCH ×3 (09:52→21:08)
[2018-05-13] MEDS: Hydroxychloroquine 200 MG Tab PO SCH (09:52)
[2018-05-13] MEDS: amLODIPine 10 MG Tab PO SCH (09:52)
[2018-05-13] MEDS: Losartan 50 MG Tab PO SCH (09:52)
[2018-05-13] MEDS: cycloSPORINE Ophth Drops U/D Box of 30 EYEBOTH SCH ×2 (09:53→21:09)
--- NOTE | 2018-05-13 10:31 | PCM.PN ---
- General Info Date of Service: 05/13/18 Subjective Update: No acute events overnight. Tolerated the colon prep well. No hematochezia or melena has been noted. Hemoglobin level has been stable. No complaints of abdominal pain. Colonoscopy completed this morning revealed a very mild residual proctitis but no evidence for recurrent or recent bleeding. No complaints of shortness of breath and no fevers. Functional Status: Reports: Pain Controlled - Review of Systems General: Denies: Fever Gastrointestinal: Denies: Abdominal Pain - Patient Data Vitals - Most Recent: Last Vital Signs Temp 36.3 C 05/13/18 09:48 Pulse 97 05/13/18 09:48 Resp 14 05/13/18 09:48 BP 155/91 H 05/13/18 09:52 Pulse Ox 97 05/13/18 09:48 Weight - Most Recent: 75.931 kg I&O - Last 24 Hours: Intake & Output 05/12/18 05/13/18 05/13/18 22:59 06:59 14:59 Intake Total 500 Output Total 600 400 Balance -100 -400 Lab Results Last 24 Hours: Laboratory Results - last 24 hr 05/12/18 05/12/18 05/12/18 Range/Units 00:35 11:15 17:10 WBC (4.5-11.0) K/uL RBC (3.30-5.50) M/uL Hgb 8.1 L D 8.4 L (12.0-15.0) g/dL Hct (36.0-48.0) % MCV (80-98) fL MCH (27-31) pg MCHC (32-36) % Plt Count (150-400) K/uL Sodium (140-148) mmol/L Potassium (3.6-5.2) mmol/L Chloride (100-108) mmol/L Carbon Dioxide (21-32) mmol/L Anion Gap (5.0-14.0) mmol/L BUN (7-18) mg/dL Creatinine (0.6-1.0) mg/dL Est Cr Clr Drug Dosing mL/min Estimated GFR (MDRD) (>60) Glucose (74-106) mg/dL Calcium (8.5-10.1) mg/dL Blood Type A POSITIVE Gel Antibody Screen Negative Crossmatch See Detail 05/12/18 05/13/18 05/13/18 Range/Units 23:00 06:06 06:06 WBC 4.7 (4.5-11.0) K/uL RBC 3.37 (3.30-5.50) M/uL Hgb 8.8 L 8.4 L (12.0-15.0) g/dL Hct 28.7 L (36.0-48.0) % MCV 85 (80-98) fL MCH 25 L (27-31) pg MCHC 29 L (32-36) % Plt Count 161 (150-400) K/uL Sodium 147 (140-148) mmol/L Potassium 3.4 L (3.6-5.2) mmol/L Chloride 110 H (100-108) mmol/L Carbon Dioxide 28 (21-32) mmol/L Anion Gap 12.4 (5.0-14.0) mmol/L BUN 18 D (7-18) mg/dL Creatinine 0.8 (0.6-1.0) mg/dL Est Cr Clr Drug Dosing 51.01 mL/min Estimated GFR (MDRD) > 60 (>60) Glucose 95 (74-106) mg/dL Calcium 8.8 (8.5-10.1) mg/dL Blood Type Gel Antibody Screen Crossmatch Med Orders - Current: Current Medications Hydrocodone Bitart/Acetaminophen ([place] 325-5 Mg) 1 tab PO Q4H PRN PRN Reason: Pain (moderate 4-6) Last Admin: 05/13/18 02:40 Dose: 1 tab Albuterol (Proventil Neb Soln) 2.5 mg INH Q4H PRN PRN Reason: wheezing Albuterol (Ventolin Hfa) 0 gm INH Q6H PRN PRN Reason: Wheezing Amlodipine Besylate (Norvasc) 10 mg PO DAILY [facility] Last Admin: 05/13/18 09:52 Dose: 10 mg Cyclosporine (Restasis) 0 each EYEBOTH BID [facility] Last Admin: 05/13/18 09:53 Dose: 1 drop Dextrose (Glutose 15) 15 gm PO ONETIME PRN PRN Reason: Hypoglycemia Dextrose/Water (Dextrose 50% In Water) 50 ml IV ONETIME PRN PRN Reason: Hypoglycemia Furosemide (Lasix) 40 mg PO DAILY [facility] Last Admin: 05/13/18 09:52 Dose: 40 mg Gabapentin (Neurontin) 600 mg PO BID@0900,1400 [facility] Last Admin: 05/13/18 09:52 Dose: 600 mg Gabapentin (Neurontin) 1,200 mg PO BEDTIME [facility] Last Admin: 05/12/18 20:32 Dose: Not Given Hydroxychloroquine Sulfate (Plaquenil) 400 mg PO DAILY [facility] Last Admin: 05/13/18 09:52 Dose: 400 mg Insulin Human Lispro (Humalog) 0 unit SUBCUT QIDACANDBED [facility]; Protocol Last Admin: 05/13/18 07:53 Dose: Not Given Loratadine (Claritin Reditabs) 10 mg PO DAILY [facility] Last Admin: 05/13/18 09:51 Dose: 10 mg Losartan Potassium (Cozaar) 100 mg PO DAILY [facility] Last Admin: 05/13/18 09:52 Dose: 100 mg Magnesium Oxide (Magnesium Oxide) 400 mg PO TID [facility] Last Admin: 05/13/18 09:52 Dose: 400 mg Sodium Chloride (Saline Flush) 10 ml FLUSH ASDIRECTED PRN PRN Reason: Keep Vein Open Last Admin: 05/12/18 01:55 Dose: 10 ml Discontinued Medications Bisacodyl (Dulcolax) 10 mg PO ONETIME ONE Stop: 05/12/18 15:01 Last Admin: 05/12/18 15:09 Dose: 10 mg Bisacodyl (Dulcolax) 10 mg PO ONETIME ONE Stop: 05/12/18 20:01 Last Admin: 05/12/18 20:28 Dose: 10 mg Cyclosporine (Restasis) 0 each EYEBOTH BID [facility] Last Admin: 05/12/18 14:37 Dose: Not Given Fentanyl (Sublimaze) Confirm Administered Dose 100 mcg .ROUTE .STK-MED ONE Stop: 05/13/18 08:12 Furosemide (Lasix) 20 mg IVPUSH ONETIME ONE Stop: 05/12/18 02:56 Last Admin: 05/12/18 03:20 Dose: 20 mg Lactated Ringer's (Ringers, Lactated) 1,000 mls @ 125 mls/hr IV ASDIRECTED [facility] Last Admin: 05/12/18 13:33 Dose: 125 mls/hr Lorazepam (Ativan) 1 mg PO ONETIME ONE Stop: 05/12/18 00:32 Last Admin: 05/12/18 00:45 Dose: 1 mg Pantoprazole Sodium (Protonix Iv) 40 mg IVPUSH Q12H [facility] Last Admin: 05/12/18 13:58 Dose: 40 mg Polyethylene Glycol (Miralax) 238 gm PO ONETIME ONE Stop: 05/12/18 17:01 Last Admin: 05/12/18 16:51 Dose: 238 gram Propofol (Diprivan 20 Ml) Confirm Administered Dose 200 mg .ROUTE .STK-MED ONE Stop: 05/12/18 12:32 Propofol (Diprivan 20 Ml) Confirm Administered Dose 200 mg .ROUTE .STK-MED ONE Stop: 05/13/18 08:07 Propofol (Diprivan 20 Ml) Confirm Administered Dose 200 mg .ROUTE .STK-MED ONE Stop: 05/13/18 08:18 - Exam Quality Assessment: No: Supplemental Oxygen General: Alert, Oriented, Cooperative, No Acute Distress Lungs: Normal Respiratory Effort GI/Abdominal Exam: Soft, No Distention Extremities: No Pedal Edema Psy/Mental Status: Alert, Normal Affect - Problem List Review Problem List Initiated/Reviewed/Updated: Yes - My Orders Last 24 Hours: My Active Orders 05/13/18 10:27 FERRITIN [CHEM] Routine IRON/TIBC [CHEM] Routine 05/13/18 Lunch Consistent Carbohydrate Diet [DIET] 05/14/18 05:00 BASIC METABOLIC PANEL,BMP [CHEM] Timed CBC W/O DIFF,HEMOGRAM [HEME] Timed (1) - Plan Plan:: ASSESSMENT AND PLAN ACUTE BLOOD LOSS ANEMIA - symptoms of weakness with numbness and tingling, initial hemoglobin of 5. She denies recent history of hematochezia or melena. EGD and colonoscopy did not reveal evidence for source of bleeding. Iron and ferritin are both very low and this may be related to iron deficiency. -Diabetic diet -Transfuse iron today and tomorrow -Hemoglobin in the morning TYPE 2 DIABETES MELLITUS - sugars acceptable. -4 times a day glucometers -Low-dose sliding scale NovoLog COPD - oxygen dependent, no evidence of acute exacerbation -Continue outpatient medications MAINTENANCE ISSUES -DVT prophylaxis; SCUDs hold on anticoagulation because of probable acute bleed -GI prophylaxis; PPI -Villeda catheter; not indicated -Nutrition; diabetic diet DISPOSITION - anticipate discharge to home after the hospital stay. Andrew Mojica M.D.
[2018-05-13] MEDS ORDERED: Potassium Chloride 20 MEQ Tab.ER PO ONE (11:00)
[2018-05-13] MEDS ORDERED: Sodium Ferric Gluconate Cmplex 125 MG in Sodium Chloride 0.9% 100 ML IV ONE (12:00)
[2018-05-13] MEDS: Gabapentin 400 MG Cap PO SCH (21:09)
[2018-05-14] MEDS ORDERED: Pantoprazole 40 MG Tab.CR PO SCH (07:30)
[2018-05-14] MEDS: Insulin Lispro 100 Unit/ML 3 ML KwikPen SUBCUT SCH ×2 (07:37→12:31)
[2018-05-14 08:01] VITALS: BP 137/65
--- NOTE | 2018-05-14 08:30 | OR ---
DATE OF PROCEDURE: 05/12/2018 PROCEDURE: EGD. FINDINGS: 1. No evidence of old or new blood. 2. Additional findings, none. COMPLICATIONS: None. SURGEON: Andrew Deng MD LABORATORY TECHNOLOGY TEACHER: None. ANESTHESIA: MAC. RISKS: Risks, benefits, alternatives, and limitations including, but not limited to infection, bleeding, and perforation were explained to the patient, who wished to proceed. PREOPERATIVE DIAGNOSES: Anemia, concern for gastrointestinal bleed. POSTOPERATIVE DIAGNOSES: Anemia, concern for gastrointestinal bleed. PROCEDURE IN DETAIL: The patient was placed in left lateral decubitus position. The EGD scope was introduced and advanced atraumatically into the second part of the duodenum. No duodenitis or evidence of ulceration. In the stomach proper, there was very mild gastritis. There was no evidence of ulceration. On retroflex, no hiatal hernia. The EG junction was normal. The esophagus was normal. The patient tolerated the procedure well. Andrew Deng MD /[id number]
[2018-05-14] MEDS: Losartan 50 MG Tab PO SCH (08:55)
[2018-05-14] MEDS: Hydroxychloroquine 200 MG Tab PO SCH (08:55)
[2018-05-14] MEDS: Magnesium Oxide 400 MG Tab PO SCH (08:55)
[2018-05-14] MEDS: Loratadine 10 MG Tab.DIS PO SCH (08:55)
[2018-05-14] MEDS: Gabapentin 300 MG Cap PO SCH (08:55)
[2018-05-14] MEDS: amLODIPine 10 MG Tab PO SCH (08:56)
[2018-05-14] MEDS: Furosemide 40 MG Tab PO SCH (08:57)
[2018-05-14] MEDS: cycloSPORINE Ophth Drops U/D Box of 30 EYEBOTH SCH (08:57)
[2018-05-14] MEDS ORDERED: Sodium Ferric Gluconate Cmplex 125 MG in Sodium Chloride 0.9% 100 ML IV ONE (10:00)
--- NOTE | 2018-05-14 11:34 | PCM.DCSUM1 ---
Discharge Summary - Hospital Course Brief History: 73-year-old female with history of diabetes, pulmonary hypertension and recent episode of hematochezia secondary to proctitis who presented with weakness and facial numbness/tingling. She was admitted for management of severe anemia and suspected gastrointestinal bleeding. Diagnosis: Stroke: No - Discharge Data Discharge Date: 05/14/18 Discharge Disposition: Home, Self-Care 01 Condition: Good - Discharge Diagnosis/Problem(s) (1) Iron deficiency anemia due to chronic blood loss SNOMED Code(s): 097251977 ICD Code: D50.0 - IRON DEFICIENCY ANEMIA SECONDARY TO BLOOD LOSS (CHRONIC) Status: Acute (2) COPD (chronic obstructive pulmonary disease) SNOMED Code(s): 14445212 ICD Code: J44.9 - CHRONIC OBSTRUCTIVE PULMONARY DISEASE, UNSPECIFIED Status : Chronic Priority: Low Qualifiers: COPD type: unspecified COPD Qualified Code(s): J44.9 - Chronic obstructive pulmonary disease, unspecified (3) Rheumatoid arthritis SNOMED Code(s): 80777087 ICD Code: M06.9 - RHEUMATOID ARTHRITIS, UNSPECIFIED Status: Chronic Qualifiers: Rheumatoid arthritis location: unspecified site Rheumatoid factor presence : unspecified presence Qualified Code(s): M06.9 - Rheumatoid arthritis, unspecified - Patient Summary/Data Consults: Consultations 05/12/18 03:45 Consult to Physician [CONS] Routine Consulting Provider: Andrew Deng Call Completed to Consulting Physician: No Reason for Consult: progressive anemia, request EGD to exclude upper GI bleed Person Notified: may notify in AM Hospital Course: Radha presented to the emergency room with generalized weakness as well as numbness/tingling of her face. Workup in the emergency room revealed profound anemia with a hemoglobin of 5. Blood transfusion was planned and she was admitted to the hospital for further management. There was concern for gastrointestinal bleeding with recent history of hematochezia though currently the patient was not reporting hematochezia or melena. She received 2 units of blood via transfusion and had a good improvement in her hemoglobin. There was no evidence for gastrointestinal bleeding during the early portion of her hospital stay. An EGD was completed the day she was admitted which was unremarkable. She received a colonoscopy prep later that afternoon and had a colonoscopy the next morning which was also unremarkable other than very mild resolving proctitis. It was noted that she had a proctitis about one month ago and was treated with antibiotics. The area appeared to be healing but had not quite resolved. She did not have any evidence for bleeding throughout the hospital stay. Her hemoglobin responded nicely to transfusion and has remained stable above 8. I did check her iron studies as well as her ferritin which were very low. She received IV iron on 2 consecutive days. Her hemoglobin has remained stable and she feels a fair amount better at this point. I did suggest that she hold her DOAC for approximately one week before restarting. I'm more suspicious that she was iron deficient from her recent gastrointestinal bleed and unable to respond appropriately to the anemia leading to profound anemia rather than an gastrointestinal bleeding episode. She has not had any abdominal pain or diarrhea during the hospital stay. She has not had any fevers. I did prescribe an iron supplement at the time of discharge. She will follow-up in about one week for repeat hemoglobin. - Patient Instructions Diet: Regular Diet as Tolerated Activity: As Tolerated Showering/Bathing: May Shower Notify Provider of: Fever, Increased Pain, Nausea and/or Vomiting Other/Special Instructions: 1. You were in the hospital for management of acute anemia. Initially there was concern that this may be related to a gastrointestinal bleed but no source of bleeding was identified with either upper or lower endoscopy. Your hemoglobin has responded nicely to a blood transfusion. We did check your iron levels which were very low. You have also received 2 doses of IV iron. I would recommend you go back on an iron supplement twice daily with breakfast and with supper. A new prescription has been sent to [facility]. You should hold your aspirin and rivaroxaban (Xarelto) until Monday. You may restart these medications at that time. 2. Continue your other home medications as previously prescribed. 3. Follow up with Dr Koenig in one week and have your hemoglobin rechecked. 4. Seek medical attention if you have fever greater than 101, profound weakness, significant shortness of breath or if you develop blood in your stool or black tarry stools. - Discharge Plan *PRESCRIPTION DRUG MONITORING PROGRAM REVIEWED*: Not Applicable *COPY OF PRESCRIPTION DRUG MONITORING REPORT IN PATIENT KELLY: Not Applicable Prescriptions/Med Rec: Ferrous Sulfate 325 mg PO BIDAC #60 tablet Home Medications: Home Meds Aspirin [Adult Low Dose Aspirin EC] 81 mg PO DAILY 02/20/14 [History] Hydroxychloroquine Sulfate 400 mg PO DAILY 05/09/13 [History] cycloSPORINE [Restasis] 1 drop EYEBOTH BID 05/09/13 [History] Gabapentin [Neurontin] 600 mg PO BID 01/07/15 [History] Loratadine [Allergy Relief] 10 mg PO DAILY 01/07/15 [History] Losartan Potassium [Cozaar] 100 mg PO DAILY 01/07/15 [History] Albuterol [Proventil Neb Soln] 3 ml INH Q4H PRN 09/22/15 [History] Albuterol [Ventolin HFA] 2 puff INH Q6H PRN 09/22/15 [History] Calcium Citrate/Vitamin D3 [Calcium Citrate + D] 200 - 250 mg PO BID 09/22/15 [ History] Furosemide 40 mg PO DAILY 09/22/15 [History] Gabapentin [Neurontin] 1,200 mg PO QPM 01/05/16 [History] Magnesium Oxide 400 mg PO TID 05/17/16 [History] Naproxen 500 mg PO BID 05/17/16 [History] amLODIPine Besylate [Amlodipine Besylate] 10 mg PO DAILY 11/15/17 [History] Rivaroxaban [Xarelto] 1 tab PO DAILY 04/09/18 [History] Hydrocodone/Acetaminophen [Hydrocodon-Acetaminophen 5-325] 1 tab PO Q4HR PRN 01/05 [History] Ferrous Sulfate 325 mg PO BIDAC #60 tablet 05/14/18 [Rx] Oxygen Therapy Mode: Nasal Cannula Oxygen Flow Rate (L/min): 2 Patient Handouts: Anemia, Iron-Rich Diet Referrals: Eren Koenig MD [Physician] - (Follow up appt may 18 at 3:30pm) - Discharge Summary/Plan Comment DC Time >30 min.: No - Patient Data Vitals - Most Recent: Last Vital Signs Temp 36.5 C 05/14/18 07:00 Pulse 57 L 05/14/18 07:00 Resp 16 05/14/18 07:00 BP 137/65 05/14/18 08:56 Pulse Ox 90 L 05/14/18 07:00 Weight - Most Recent: 75.931 kg I&O - Last 24 hours: Intake & Output 05/13/18 05/14/18 05/14/18 22:59 06:59 14:59 Intake Total 200 240 640 Output Total 1100 400 200 Balance -900 -160 440 Lab Results - Last 24 hrs: Laboratory Results - last 24 hr 05/14/18 05/14/18 Range/Units 05:44 05:44 WBC 4.0 L (4.5-11.0) K/uL RBC 3.31 (3.30-5.50) M/uL Hgb 8.4 L (12.0-15.0) g/dL Hct 28.7 L (36.0-48.0) % MCV 87 (80-98) fL MCH 25 L (27-31) pg MCHC 29 L (32-36) % Plt Count 157 (150-400) K/uL Sodium 150 H (140-148) mmol/L Potassium 3.9 (3.6-5.2) mmol/L Chloride 114 H (100-108) mmol/L Carbon Dioxide 28 (21-32) mmol/L Anion Gap 11.9 (5.0-14.0) mmol/L BUN 17 (7-18) mg/dL Creatinine 0.9 (0.6-1.0) mg/dL Est Cr Clr Drug Dosing 45.34 mL/min Estimated GFR (MDRD) > 60 (>60) Glucose 82 (74-106) mg/dL Calcium 8.2 L (8.5-10.1) mg/dL Med Orders - Current: Current Medications Hydrocodone Bitart/Acetaminophen ([place] 325-5 Mg) 1 tab PO Q4H PRN PRN Reason: Pain (moderate 4-6) Last Admin: 05/13/18 21:07 Dose: 1 tab Albuterol (Proventil Neb Soln) 2.5 mg INH Q4H PRN PRN Reason: wheezing Albuterol (Ventolin Hfa) 0 gm INH Q6H PRN PRN Reason: Wheezing Amlodipine Besylate (Norvasc) 10 mg PO DAILY [facility] Last Admin: 05/14/18 08:56 Dose: 10 mg Cyclosporine (Restasis) 0 each EYEBOTH BID [facility] Last Admin: 05/14/18 08:57 Dose: 1 drop Dextrose (Glutose 15) 15 gm PO ONETIME PRN PRN Reason: Hypoglycemia Dextrose/Water (Dextrose 50% In Water) 50 ml IV ONETIME PRN PRN Reason: Hypoglycemia Furosemide (Lasix) 40 mg PO DAILY [facility] Last Admin: 05/14/18 08:57 Dose: 40 mg Gabapentin (Neurontin) 600 mg PO BID@0900,1400 [facility] Last Admin: 05/14/18 08:55 Dose: 600 mg Gabapentin (Neurontin) 1,200 mg PO BEDTIME [facility] Last Admin: 05/13/18 21:09 Dose: 1,200 mg Hydroxychloroquine Sulfate (Plaquenil) 400 mg PO DAILY [facility] Last Admin: 05/14/18 08:55 Dose: 400 mg Insulin Human Lispro (Humalog) 0 unit SUBCUT QIDACANDBED [facility]; Protocol Last Admin: 05/14/18 07:37 Dose: Not Given Loratadine (Claritin Reditabs) 10 mg PO DAILY [facility] Last Admin: 05/14/18 08:55 Dose: 10 mg Losartan Potassium (Cozaar) 100 mg PO DAILY [facility] Last Admin: 05/14/18 08:55 Dose: 100 mg Magnesium Oxide (Magnesium Oxide) 400 mg PO TID [facility] Last Admin: 05/14/18 08:55 Dose: 400 mg Pantoprazole Sodium (Protonix) 40 mg PO ACBREAKFAST [facility] Last Admin: 05/14/18 07:39 Dose: 40 mg Sodium Chloride (Saline Flush) 10 ml FLUSH ASDIRECTED PRN PRN Reason: Keep Vein Open Last Admin: 05/12/18 01:55 Dose: 10 ml Discontinued Medications Bisacodyl (Dulcolax) 10 mg PO ONETIME ONE Stop: 05/12/18 15:01 Last Admin: 05/12/18 15:09 Dose: 10 mg Bisacodyl (Dulcolax) 10 mg PO ONETIME ONE Stop: 05/12/18 20:01 Last Admin: 05/12/18 20:28 Dose: 10 mg Cyclosporine (Restasis) 0 each EYEBOTH BID [facility] Last Admin: 05/12/18 14:37 Dose: Not Given Fentanyl (Sublimaze) Confirm Administered Dose 100 mcg .ROUTE .STK-MED ONE Stop: 05/13/18 08:12 Furosemide (Lasix) 20 mg IVPUSH ONETIME ONE Stop: 05/12/18 02:56 Last Admin: 05/12/18 03:20 Dose: 20 mg Lactated Ringer's (Ringers, Lactated) 1,000 mls @ 125 mls/hr IV ASDIRECTED [facility] Last Admin: 05/12/18 13:33 Dose: 125 mls/hr Ferric Sodium Gluconate Complex 125 mg/ Sodium Chloride 110 mls @ 100 mls/hr IV ONETIME ONE Stop: 05/13/18 13:05 Last Admin: 05/13/18 12:08 Dose: 100 mls/hr Ferric Sodium Gluconate Complex 125 mg/ Sodium Chloride 110 mls @ 100 mls/hr IV ONETIME ONE Stop: 05/14/18 11:05 Last Admin: 05/14/18 09:01 Dose: 100 mls/hr Lorazepam (Ativan) 1 mg PO ONETIME ONE Stop: 05/12/18 00:32 Last Admin: 05/12/18 00:45 Dose: 1 mg Pantoprazole Sodium (Protonix Iv) 40 mg IVPUSH Q12H [facility] Last Admin: 05/12/18 13:58 Dose: 40 mg Polyethylene Glycol (Miralax) 238 gm PO ONETIME ONE Stop: 05/12/18 17:01 Last Admin: 05/12/18 16:51 Dose: 238 gram Potassium Chloride (Klor-Con M20) 40 meq PO ONETIME ONE Stop: 05/13/18 11:01 Last Admin: 05/13/18 11:03 Dose: 40 meq Propofol (Diprivan 20 Ml) Confirm Administered Dose 200 mg .ROUTE .STK-MED ONE Stop: 05/12/18 12:32 Propofol (Diprivan 20 Ml) Confirm Administered Dose 200 mg .ROUTE .STK-MED ONE Stop: 05/13/18 08:07 Propofol (Diprivan 20 Ml) Confirm Administered Dose 200 mg .ROUTE .STK-MED ONE Stop: 05/13/18 08:18 - Exam Quality Assessment: Reports: Supplemental Oxygen General: Reports: Alert, Oriented, Cooperative, No Acute Distress Neck: Reports: Supple Lungs: Reports: Normal Respiratory Effort Cardiovascular: Reports: Regular Rate, Regular Rhythm GI/Abdominal Exam: Soft, No Distention Extremities: No Pedal Edema Skin: Reports: Warm, Dry Psy/Mental Status: Reports: Alert, Normal Affect
--- NOTE | 2018-05-21 07:50 | OR ---
DATE OF PROCEDURE: 05/13/2018 PROCEDURE: Colonoscopy. FINDINGS: 1. Very mild inflammation in the rectum. 2. No evidence of gross active bleeding. COMPLICATIONS: None. SURGEON: Andrew Deng MD EDGE DRUMMER: None. PREOPERATIVE DIAGNOSIS: Anemia. POSTOPERATIVE DIAGNOSIS: Anemia. RISKS: Risks, benefits, alternatives, and limitations including, but not limited to infection, bleeding, and perforation were explained to the patient and they wished to proceed. PROCEDURE IN DETAIL: The patient was placed in left lateral decubitus position. Digital rectal exam was performed without abnormality. The scope was introduced and advanced atraumatically to the ileocecal valve. The scope was brought back through the ascending, transverse, descending colon, and retroflexed. No evidence of old or new blood. The patient did have a very mild inflammation in her rectal area; however, this did not contribute to her anemia at this time. Andrew Deng MD /[id number]
== END 2018-05-14 13:00 | disposition home or self-care (01) | DRG 812 ==
LOC: JP.ED 23:56 → JP.MS 05-12 02:02
PROVIDERS: ADMIT Family Medicine; ATTEND Internal Medicine
PROC: 0DJ08ZZ Inspection of Upper Intestinal Tract, Via Natural or Artificial Opening Endoscopic (ICD-10-PCS; principal; 2018-05-12)
PROC: 30233N1 Transfusion of Nonautologous Red Blood Cells into Peripheral Vein, Percutaneous Approach (ICD-10-PCS; 2018-05-12)
PROC: 30233K1 Transfusion of Nonautologous Frozen Plasma into Peripheral Vein, Percutaneous Approach (ICD-10-PCS; 2018-05-12)
PROC: 0DJD8ZZ Inspection of Lower Intestinal Tract, Via Natural or Artificial Opening Endoscopic (ICD-10-PCS; 2018-05-13)
DX: D62 Acute posthemorrhagic anemia (principal); D50.0 Iron deficiency anemia secondary to blood loss (chronic); I13.0 Hypertensive heart and chronic kidney disease with heart failure and stage 1 through stage 4 chronic kidney disease, or unspecified chronic kidney disease; I50.9 Heart failure, unspecified; K29.70 Gastritis, unspecified, without bleeding; N18.3 Chronic kidney disease, stage 3 (moderate); E11.42 Type 2 diabetes mellitus with diabetic polyneuropathy; E11.21 Type 2 diabetes mellitus with diabetic nephropathy; E11.22 Type 2 diabetes mellitus with diabetic chronic kidney disease; J44.9 Chronic obstructive pulmonary disease, unspecified; M06.9 Rheumatoid arthritis, unspecified; I27.20 Pulmonary hypertension, unspecified; R20.0 Anesthesia of skin; R47.81 Slurred speech; R53.1 Weakness; I25.10 Atherosclerotic heart disease of native coronary artery without angina pectoris; E78.00 Pure hypercholesterolemia, unspecified; M19.90 Unspecified osteoarthritis, unspecified site; M54.9 Dorsalgia, unspecified; G89.29 Other chronic pain; M81.0 Age-related osteoporosis without current pathological fracture; H40.9 Unspecified glaucoma; H91.90 Unspecified hearing loss, unspecified ear; K62.89 Other specified diseases of anus and rectum; E66.9 Obesity, unspecified; Z68.31 Body mass index [BMI] 31.0-31.9, adult; Z86.718 Personal history of other venous thrombosis and embolism; Z79.82 Long term (current) use of aspirin; Z99.81 Dependence on supplemental oxygen; Z88.8 Allergy status to other drugs, medicaments and biological substances; Z79.01 Long term (current) use of anticoagulants
CPT/HCPCS: 36415; 70450; 80053; 83605; 84484; 85025; 86850; 86900; 86901; 86920 ×3; 86922 ×3; 96360; 99285; A9270; G0480; J7120; 36430; 80048; 82728; 82962; 83550; 85018; 85027; C9113; J1815; J1940; J2704; J2916; J3010; J7030; P9016; P9017

== ENCOUNTER 2018-05-23 07:08 | Inpatient (IN) | payer MEDICARE ==
[2018-05-23] MEDS ORDERED: Lactated Ringers 1,000 ML IV SCH (07:45)
[2018-05-23] MEDS ORDERED: HYDROmorphone 1 MG/ML Syringe IVPUSH ONE (07:49)
--- NOTE | 2018-05-23 07:55 | EDM.PDOC ---
ED HPI GENERAL MEDICAL PROBLEM - General Chief Complaint: Back Pain or Injury Stated Complaint: [facility] Time Seen by Provider: 05/23/18 07:36 Source of Information: Reports: Patient, Old Records, RN Notes Reviewed History Limitations: Reports: No Limitations - History of Present Illness INITIAL COMMENTS - FREE TEXT/NARRATIVE: 73-year-old female presents to the emergency department today via EMS services, she was recently admitted to the hospital about 10 days prior for severe anemia thought to be a GI source colonoscopy and EGD were fairly unremarkable found to be very severe deficiency of iron did receive iron supplementation transfuse 2 units of blood discharge from the hospital hemoglobin was 8.1. Does have a known history of compression fracture as well as COPD and peripheral neuropathy secondary diabetes mellitus type 2. For this particular event she states she woke this morning severe back pain week could not get out of bed on initial exam was noted to be both hypoxic and have a fever states she did receive her flu shot this year Lower Back Pain Score (Numeric/FACES): 8 - Related Data Allergies Allergy/AdvReac Type Severity Reaction Status Date / Time hydrochlorothiazide Allergy Other Verified 05/23/18 07:18 [From Dyazide] oxybutynin Allergy Other Verified 05/23/18 07:18 Ridlqwg-[id number] Reductase Allergy Other Verified 05/23/18 07:18 Inhibitor triamterene [From Dyazide] Allergy Other Verified 05/23/18 07:18 budesonide [From Symbicort] AdvReac Nausea and Verified 05/23/18 07:18 Vomiting formoterol fumarate AdvReac Nausea and Verified 05/23/18 07:18 [From Symbicort] Vomiting pregabalin [From Lyrica] AdvReac Headache Verified 05/23/18 07:18 tizanidine AdvReac Nausea Verified 05/23/18 07:18 Home Meds: Home Meds Hydroxychloroquine Sulfate 400 mg PO DAILY 05/09/13 [History] cycloSPORINE [Restasis] 1 drop EYEBOTH BID 05/09/13 [History] Gabapentin [Neurontin] 600 mg PO BID 01/07/15 [History] Loratadine [Allergy Relief] 10 mg PO DAILY 01/07/15 [History] Losartan Potassium [Cozaar] 100 mg PO DAILY 01/07/15 [History] Albuterol [Proventil Neb Soln] 3 ml INH Q4H PRN 09/22/15 [History] Albuterol [Ventolin HFA] 2 puff INH Q6H PRN 09/22/15 [History] Calcium Citrate/Vitamin D3 [Calcium Citrate + D] 200 - 250 mg PO BID 09/22/15 [ History] Furosemide 40 mg PO DAILY 09/22/15 [History] Gabapentin [Neurontin] 1,200 mg PO QPM 01/05/16 [History] Magnesium Oxide 400 mg PO TID 05/17/16 [History] Naproxen 500 mg PO BID 05/17/16 [History] amLODIPine Besylate [Amlodipine Besylate] 10 mg PO DAILY 11/15/17 [History] Rivaroxaban [Xarelto] 1 tab PO DAILY 04/09/18 [History] Hydrocodone/Acetaminophen [Hydrocodon-Acetaminophen 5-325] 1 tab PO Q4HR PRN 01/05 [History] Ferrous Sulfate 325 mg PO BIDAC #60 tablet 05/14/18 [Rx] Past Medical History HEENT History: Reports: Glaucoma, Impaired Vision Other HEENT History: Otitis externa of right ear, bilateral dry eyes Cardiovascular History: Reports: CAD, Heart Murmur, High Cholesterol, Hypertension, SOB on Exertion Other Cardiovascular History: RBBB,ventricular diastolic dysfunction Respiratory History: Reports: Asthma, COPD, Other (See Below) Other Respiratory History: pulmonary hypertension. suppose to be on home O2 due to COPD, patient discontinued use and sent equipment with oxygen supplier. Patient normally on 2L continuous at home. Uses O2 at night. 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: Musculoskeletal History: Reports: Arthritis, Back Pain, Chronic, Fracture Other Musculoskeletal History: fx ankle Endocrine/Metabolic History: Reports: Diabetes, Type II, Obesity/BMI 30+, Osteoporosis Other Endocrine/Metabolic History: lupus Hematologic History: Reports: Anticoagulation Therapy Immunologic History: Reports: SLE Other Immunologic History: lupus anticoagulant positive Dermatologic History: Reports: Venous Stasis Dermatitis - Infectious Disease History Infectious Disease History: Reports: Chicken Pox - Past Surgical History Respiratory Surgical History: Reports: None Female Surgical History: Reports: Breast Biopsy Musculoskeletal Surgical History: Reports: Other (See Below) Other Musculoskeletal Surgeries/Procedures:: left ankle repair Dermatological Surgical History: Reports: Skin Biopsy Social & Family History - Tobacco Use Smoking Status *Q: Never Smoker Second Hand Smoke Exposure: No - Caffeine Use Caffeine Use: Reports: Coffee, Soda Other Caffeine Use: 3 cups coffee daily, 1 can pop dailty - Recreational Drug Use Recreational Drug Use: No - Living Situation & Occupation Living situation: Reports: Single, Alone (lives alone in her home in [place], [place]., 2 children; son Palmer,who visits on weekends, Daughter two years ago of overdose. 3 grandchildren.) ED ROS GENERAL - Review of Systems Review Of Systems: See Below Constitutional: Reports: Fever, Weakness HEENT: Reports: No Symptoms Respiratory: Reports: Shortness of Breath, Cough. Denies: Wheezing Cardiovascular: Reports: No Symptoms GI/Abdominal: Reports: No Symptoms : Reports: No Symptoms Musculoskeletal: Reports: No Symptoms Skin: Reports: No Symptoms Neurological: Reports: Numbness, Tingling ED EXAM, GENERAL - Physical Exam Exam: See Below Free Text/Narrative:: General: Elderly female, not in any distress, alert and oriented x3 HEENT: head is atraumatic normocephalic, eyes pupils equal round reactive to light, sclera clear no conjunctivitis appreciated. Ears tympanic membranes clear and lemus landmarks and light reflex are present bilaterally canals are clear. Nose no septal deviation, nares are clear, no blood present. Mouth mucosa is dry and pink no erythema or exudate noted in soft palate, tongue is midline uvula is midline, dentition is poor. Neck: Supple no thyromegaly no tracheal deviation. Nodes: Cervical nodes subclavicular nodes nontender no palpable lymphadenopathy noted. Lungs: Coarse breath sounds but on appreciate any adventitious noises CV: Regular rate and rhythm S1 and S2 appreciated 2/6 systolic ejection murmur best appreciated left sternal border, no rubs or gallops noted. Abdomen: Soft, nontender, no palpable masses or organomegaly appreciated, no distention no guarding bowel sounds are present,. Neuro: Cranial nerves II through XII intact, GCS of 15 Skin: Warm and dry, intact Extremities: No lower extremity edema appreciated, pedal pulse is +2. Course - Vital Signs Last Recorded V/S: Last Vital Signs Temp 101.7 F H 05/23/18 11:00 Pulse 91 05/23/18 11:00 Resp 15 05/23/18 11:00 BP 139/56 L 05/23/18 11:00 Pulse Ox 92 L 05/23/18 11:00 - Orders/Labs/Meds Orders: Active Orders 24 hr Category Date Time Status Vital Signs [RC] Q1H Care 05/23/18 07:46 Active CULTURE BLOOD [BC] Urgent Lab 05/23/18 08:00 Received CULTURE BLOOD [BC] Urgent Lab 05/23/18 08:05 Received CULTURE RESPIRATORY + SMEAR [RM] Urgent Lab 05/23/18 07:44 Ordered Azithromycin [Zithromax] 500 mg Med 05/23/18 12:01 Ordered Sodium Chloride 0.9% [Normal Saline] 250 ml IV ONETIME Iopamidol [Isovue-370 (76%)] Med 05/23/18 10:15 Active 100 ml IV . DIRECTED Lactated Ringers [Ringers, Lactated] 1,000 ml Med 05/23/18 07:45 Active IV ASDIRECTED Sodium Chloride 0.9% [Normal Saline] 90 ml Med 05/23/18 10:15 Active IV ASDIRECTED Blood Culture x2 Reflex Set [OM.PC] Urgent Oth 05/23/18 07:46 Ordered Medication Orders Lactated Ringer's (Ringers, Lactated) 1,000 mls @ 999 mls/hr IV ASDIRECTED [facility] Last Admin: 05/23/18 08:03 Dose: 999 mls/hr Sodium Chloride (Normal Saline) 90 mls @ 4 mls/sec IV ASDIRECTED [facility] Last Admin: 05/23/18 10:36 Dose: 4 mls/sec Azithromycin 500 mg/ Sodium (Chloride) 250 mls @ 250 mls/hr IV ONETIME ONE Stop: 05/23/18 13:00 Iopamidol (Isovue-370 (76%)) 100 ml IV . DIRECTED [facility] Last Admin: 05/23/18 10:36 Dose: 100 ml Labs: Laboratory Tests 05/23/18 05/23/18 05/23/18 Range/Units 07:44 08:05 08:05 WBC 16.6 H (4.5-11.0) K/uL RBC 3.69 (3.30-5.50) M/uL Hgb 9.9 L (12.0-15.0) g/dL Hct 32.7 L (36.0-48.0) % MCV 89 (80-98) fL MCH 27 (27-31) pg MCHC 30 L (32-36) % Plt Count 130 L (150-400) K/uL Neut % (Auto) 93 H (36-66) % Lymph % (Auto) 3 L (24-44) % Perry % (Auto) 4 (2-6) % Eos % (Auto) 0 L (2-4) % Baso % (Auto) 0 (0-1) % D-Dimer, Quantitative (0.0-400.0) ng/mL Puncture Site Lt radial ABG pH 7.465 H (7.350-7.450) ABG pCO2 36.2 (35.0-42.0) mmHg ABG pO2 57.8 L (75.0-100.0) mmHg ABG HCO3 25.7 (22.0-26.0) mmol/L ABG Total CO2 23.7 (21.0-25.0) mmol/L ABG O2 Saturation 91.3 L (95.0-98.0) % ABG O2 Content 12.2 L (15.0-23.0) %vol ABG Base Excess 2.4 mm/L ABG Hemoglobin 9.8 L (12.0-16.0) g/dL ABG Oxyhemoglobin 88.4 % ABG Carboxyhemoglobin 2.6 H (0.0-1.6) % ABG Methemoglobin 0.6 % Luis Felipe Test Passed O2 Delivery Device Nasal cannula Oxygen Flow Rate 2 L Sodium 141 (140-148) mmol/L Potassium 3.6 (3.6-5.2) mmol/L Chloride 108 (100-108) mmol/L Carbon Dioxide 27 (21-32) mmol/L Anion Gap 6.0 (5.0-14.0) mmol/L BUN 22 H (7-18) mg/dL Creatinine 1.0 (0.6-1.0) mg/dL Est Cr Clr Drug Dosing 40.81 mL/min Estimated GFR (MDRD) 55 L (>60) Glucose 96 (74-106) mg/dL Lactic Acid (0.4-2.0) mmol/L Calcium 8.0 L (8.5-10.1) mg/dL Total Bilirubin 0.7 D (0.2-1.0) mg/dL AST 42 H (15-37) U/L ALT 26 (12-78) U/L Alkaline Phosphatase 96 (46-116) U/L Troponin I (0.000-0.056) ng/mL C-Reactive Protein 4.21 H (0.0-0.3) mg/dL Total Protein 6.9 (6.4-8.2) g/dL Albumin 2.3 L (3.4-5.0) g/dL Globulin 4.6 H (2.3-3.5) g/dL Albumin/Globulin Ratio 0.5 L (1.2-2.2) Urine Color Urine Appearance Urine pH (4.5-8.0) Ur Specific [place] (1.008-1.030) Urine Protein (NEGATIVE) mg/dL Urine Glucose (UA) (NEGATIVE) mg/dL Urine Ketones (NEGATIVE) mg/dL Urine Occult Blood (NEGATIVE) Urine Nitrite (NEGATIVE) Urine Bilirubin (NEGATIVE) Urine Urobilinogen (NORMAL) mg/dL Ur Leukocyte Esterase (NEGATIVE) Urine RBC (0-5) Urine WBC (0-5) Ur Epithelial Cells Amorphous Sediment Urine Bacteria Urine Mucus Urine Other 05/23/18 05/23/18 05/23/18 Range/Units 08:05 08:48 09:23 WBC (4.5-11.0) K/uL RBC (3.30-5.50) M/uL Hgb (12.0-15.0) g/dL Hct (36.0-48.0) % MCV (80-98) fL MCH (27-31) pg MCHC (32-36) % Plt Count (150-400) K/uL Neut % (Auto) (36-66) % Lymph % (Auto) (24-44) % Perry % (Auto) (2-6) % Eos % (Auto) (2-4) % Baso % (Auto) (0-1) % D-Dimer, Quantitative (0.0-400.0) ng/mL Puncture Site ABG pH (7.350-7.450) ABG pCO2 (35.0-42.0) mmHg ABG pO2 (75.0-100.0) mmHg ABG HCO3 (22.0-26.0) mmol/L ABG Total CO2 (21.0-25.0) mmol/L ABG O2 Saturation (95.0-98.0) % ABG O2 Content (15.0-23.0) %vol ABG Base Excess mm/L ABG Hemoglobin (12.0-16.0) g/dL ABG Oxyhemoglobin % ABG Carboxyhemoglobin (0.0-1.6) % ABG Methemoglobin % Luis Felipe Test O2 Delivery Device Oxygen Flow Rate L Sodium (140-148) mmol/L Potassium (3.6-5.2) mmol/L Chloride (100-108) mmol/L Carbon Dioxide (21-32) mmol/L Anion Gap (5.0-14.0) mmol/L BUN (7-18) mg/dL Creatinine (0.6-1.0) mg/dL Est Cr Clr Drug Dosing mL/min Estimated GFR (MDRD) (>60) Glucose (74-106) mg/dL Lactic Acid 1.5 (0.4-2.0) mmol/L Calcium (8.5-10.1) mg/dL Total Bilirubin (0.2-1.0) mg/dL AST (15-37) U/L ALT (12-78) U/L Alkaline Phosphatase (46-116) U/L Troponin I 0.082 H* (0.000-0.056) ng/mL C-Reactive Protein (0.0-0.3) mg/dL Total Protein (6.4-8.2) g/dL Albumin (3.4-5.0) g/dL Globulin (2.3-3.5) g/dL Albumin/Globulin Ratio (1.2-2.2) Urine Color Yellow Urine Appearance Slightly cloudy Urine pH 7.0 (4.5-8.0) Ur Specific [place] 1.010 (1.008-1.030) Urine Protein 30 H (NEGATIVE) mg/dL Urine Glucose (UA) Normal (NEGATIVE) mg/dL Urine Ketones Negative (NEGATIVE) mg/dL Urine Occult Blood Trace (NEGATIVE) Urine Nitrite Negative (NEGATIVE) Urine Bilirubin Negative (NEGATIVE) Urine Urobilinogen Normal (NORMAL) mg/dL Ur Leukocyte Esterase Negative (NEGATIVE) Urine RBC 0-5 (0-5) Urine WBC Not seen (0-5) Ur Epithelial Cells Not seen Amorphous Sediment Not seen Urine Bacteria Not seen Urine Mucus Moderate Urine Other See note 03/06/19 Range/Units 09:23 WBC (4.5-11.0) K/uL RBC (3.30-5.50) M/uL Hgb (12.0-15.0) g/dL Hct (36.0-48.0) % MCV (80-98) fL MCH (27-31) pg MCHC (32-36) % Plt Count (150-400) K/uL Neut % (Auto) (36-66) % Lymph % (Auto) (24-44) % Perry % (Auto) (2-6) % Eos % (Auto) (2-4) % Baso % (Auto) (0-1) % D-Dimer, Quantitative 2660 H (0.0-400.0) ng/mL Puncture Site ABG pH (7.350-7.450) ABG pCO2 (35.0-42.0) mmHg ABG pO2 (75.0-100.0) mmHg ABG HCO3 (22.0-26.0) mmol/L ABG Total CO2 (21.0-25.0) mmol/L ABG O2 Saturation (95.0-98.0) % ABG O2 Content (15.0-23.0) %vol ABG Base Excess mm/L ABG Hemoglobin (12.0-16.0) g/dL ABG Oxyhemoglobin % ABG Carboxyhemoglobin (0.0-1.6) % ABG Methemoglobin % Luis Felipe Test O2 Delivery Device Oxygen Flow Rate L Sodium (140-148) mmol/L Potassium (3.6-5.2) mmol/L Chloride (100-108) mmol/L Carbon Dioxide (21-32) mmol/L Anion Gap (5.0-14.0) mmol/L BUN (7-18) mg/dL Creatinine (0.6-1.0) mg/dL Est Cr Clr Drug Dosing mL/min Estimated GFR (MDRD) (>60) Glucose (74-106) mg/dL Lactic Acid (0.4-2.0) mmol/L Calcium (8.5-10.1) mg/dL Total Bilirubin (0.2-1.0) mg/dL AST (15-37) U/L ALT (12-78) U/L Alkaline Phosphatase (46-116) U/L Troponin I (0.000-0.056) ng/mL C-Reactive Protein (0.0-0.3) mg/dL Total Protein (6.4-8.2) g/dL Albumin (3.4-5.0) g/dL Globulin (2.3-3.5) g/dL Albumin/Globulin Ratio (1.2-2.2) Urine Color Urine Appearance Urine pH (4.5-8.0) Ur Specific [place] (1.008-1.030) Urine Protein (NEGATIVE) mg/dL Urine Glucose (UA) (NEGATIVE) mg/dL Urine Ketones (NEGATIVE) mg/dL Urine Occult Blood (NEGATIVE) Urine Nitrite (NEGATIVE) Urine Bilirubin (NEGATIVE) Urine Urobilinogen (NORMAL) mg/dL Ur Leukocyte Esterase (NEGATIVE) Urine RBC (0-5) Urine WBC (0-5) Ur Epithelial Cells Amorphous Sediment Urine Bacteria Urine Mucus Urine Other Meds: Medications Generic Name Dose Route Start Last Admin Trade Name Freq PRN Reason Stop Dose Admin Lactated Ringer's 1,000 mls @ 999 mls/hr 05/23/18 07:45 05/23/18 08:03 Ringers, Lactated IV 999 mls/hr ASDIRECTED JERRI Administration Sodium Chloride 90 mls @ 4 mls/sec 05/23/18 10:15 05/23/18 10:36 Normal Saline IV 4 mls/sec ASDIRECTED JERRI Administration Azithromycin 500 mg/ Sodium 250 mls @ 250 mls/hr 05/23/18 12:01 Chloride IV 05/23/18 13:00 ONETIME ONE Iopamidol 100 ml 05/23/18 10:15 05/23/18 10:36 Isovue-370 (76%) IV 100 ml . DIRECTED JERRI Administration Discontinued Medications Generic Name Dose Route Start Last Admin Trade Name Freq PRN Reason Stop Dose Admin Hydromorphone HCl 1 mg 05/23/18 07:49 05/23/18 08:03 Dilaudid IVPUSH 05/23/18 07:50 1 mg ONETIME ONE Administration Levofloxacin/Dextrose 500 mg/ 100 mls @ 100 mls/hr 05/23/18 09:22 05/23/18 09 :33 Premix IV 05/23/18 10:21 100 mls/hr ONETIME ONE Administration Lactated Ringer's 1,000 mls @ 500 mls/hr 05/23/18 09:28 05/23/18 09:32 Ringers, Lactated IV 05/23/18 11:27 500 mls/hr BOLUS ONE Administration Ibuprofen 600 mg 05/23/18 09:19 05/23/18 09:26 Motrin PO 05/23/18 09:20 600 mg ONETIME ONE Administration Lorazepam 0.5 mg 05/23/18 10:02 05/23/18 10:08 Ativan IVPUSH 05/23/18 10:03 0.5 mg ONETIME ONE Administration Departure - Departure Time of Disposition: 12:07 Disposition: Admitted As Inpatient 68 Condition: Poor Clinical Impression: Community acquired pneumonia Qualifiers: Laterality: unspecified laterality Qualified Code(s): J18.9 - Pneumonia, unspecified organism - Discharge Information Referrals: PCP,None [Primary Care Provider] - Forms: ED Department Discharge - My Orders Last 24 Hours: My Active Orders 05/23/18 07:44 CULTURE RESPIRATORY + SMEAR [RM] Urgent 05/23/18 07:45 Lactated Ringers [Ringers, Lactated] 1,000 ml IV ASDIRECTED 05/23/18 07:46 Vital Signs [RC] Q1H Blood Culture x2 Reflex Set [OM.PC] Urgent 05/23/18 08:00 CULTURE BLOOD [BC] Urgent 05/23/18 08:05 CULTURE BLOOD [BC] Urgent 05/23/18 10:15 Iopamidol [Isovue-370 (76%)] 100 ml IV . DIRECTED Sodium Chloride 0.9% [Normal Saline] 90 ml IV ASDIRECTED 05/23/18 12:01 Azithromycin [Zithromax] 500 mg Sodium Chloride 0.9% [Normal Saline] 250 ml IV ONETIME - Assessment/Plan Last 24 Hours: My Active Orders 05/23/18 07:44 CULTURE RESPIRATORY + SMEAR [RM] Urgent 05/23/18 07:45 Lactated Ringers [Ringers, Lactated] 1,000 ml IV ASDIRECTED 05/23/18 07:46 Vital Signs [RC] Q1H Blood Culture x2 Reflex Set [OM.PC] Urgent 05/23/18 08:00 CULTURE BLOOD [BC] Urgent 05/23/18 08:05 CULTURE BLOOD [BC] Urgent 05/23/18 10:15 Iopamidol [Isovue-370 (76%)] 100 ml IV . DIRECTED Sodium Chloride 0.9% [Normal Saline] 90 ml IV ASDIRECTED 05/23/18 12:01 Azithromycin [Zithromax] 500 mg Sodium Chloride 0.9% [Normal Saline] 250 ml IV ONETIME Plan: Assessment Acuity = acute Site and laterality = community-acquired pneumonia complicated in a patient with known history of COPD, on anticoagulation therapy as well as rheumatoid arthritis and diabetes mellitus type 2 Etiology = probable bacterial cause Manifestations = hypoxia, fever, cough Location of injury = Home Lab values = WBC elevated 16.6 consistent with leukocytosis, hemoglobin low at 9.0 consistent normochromic anemia d-dimer elevated at 2660 of unclear significance pH elevated 7.46 PCO2 36.2 PO2 57.8 bicarbonate 25.7 consistent primary respiratory alkalosis lactic acid normal 1.5 troponin slightly elevated 0.08 to probably related to pulmonary hypertension CRP elevated 4.21 albumin low at 2.3 consistent hypoalbuminemia urinalysis unremarkable blood cultures are pending chest x-ray shows no acute process CT scan of the chest reveals no obvious pulmonary embolism atelectasis in the bases as well as compression fractures in the lumbar region influenza A and B both negative Plan Called discussed case with hospitalist technical operations vice president at 1205 kindly agreed, and evaluate the patient in the hospital for admission This note was dictated using [email or web address] voice recognition software please call with any questions on syntax or grammar.
--- NOTE | 2018-05-23 08:14 | CRLCR ---
INDICATION: Cough. Fever. TECHNIQUE: AP portable semi-upright chest. COMPARISON: Two-view chest August 09, 2015. FINDINGS: Clear lungs. Mild cardiac enlargement likely accentuated by the portable technique. Degenerative change of the shoulders. IMPRESSION: No acute cardiopulmonary process identified. Dictated by Lawson Aguilar MD @ May 23 2018 8:12AM Signed by Dr. Lawson Aguilar @ May 23 2018 8:12AM
[2018-05-23] MEDS ORDERED: Ibuprofen 600 MG Tab PO ONE (09:19)
[2018-05-23] MEDS ORDERED: Levofloxacin/Dextrose 5%-Water 500 MG in Premix Bag 1 BAG IV ONE (09:22)
[2018-05-23] MEDS ORDERED: Lactated Ringers 1,000 ML IV ONE (09:28)
[2018-05-23] MEDS ORDERED: LORazepam 2 MG/ML SDV IVPUSH ONE (10:02)
[2018-05-23] MEDS ORDERED: Sodium Chloride 0.9% 90 ML IV SCH (10:15)
[2018-05-23] MEDS ORDERED: Iopamidol 755 Mg/ML 100 ML Bottle IV SCH (10:15)
--- NOTE | 2018-05-23 11:09 | CRLCT ---
INDICATION: Fever. Cough. Tachycardia. D-dimer. COPD. TECHNIQUE: Contrast-enhanced CT of the chest. 100 cc nonionic Isovue-370 administered. COMPARISON: Correlation is made with a portable semi upright chest x-ray performed earlier on the same date. FINDINGS: Adequate but not optimal opacification of the pulmonary arterial tree. There is some mild motion artifact and flow related artifact. There is no convincing evidence for acute pulmonary emboli. No chronic pulmonary emboli either. The main pulmonary artery is 3.2 cm which is at the upper limit of normal. Pulmonary arterial hypertension could not be excluded. Vascular calcification within the thoracic aorta and coronary artery distribution. Minimal bibasilar atelectasis. Curvilinear fibrosis or atelectasis medial right middle lobe. Focal atelectasis lingular left upper lobe. The upper abdomen is not fully or optimally included. The freight car loader images demonstrate a marked compression fracture of L1, L3 with post vertebroplasty changes, and partial compression fracture of L2. IMPRESSION: 1. No acute pulmonary emboli identified. No thoracic aortic aneurysm or dissection. 2. The main pulmonary artery is at the upper limit of normal measuring 3.2 cm. 3. Patchy bibasilar atelectasis or less likely infiltrate with atelectasis in the lingular left upper lobe. 4. Vascular calcification within the aorta and coronary artery distribution. Please note that all CT scans at this facility use dose modulation, iterative reconstruction, and/or weight-based dosing when appropriate to reduce radiation dose to as low as reasonably achievable. Dictated by Lawson Aguilar MD @ May 23 2018 11:01AM Signed by Dr. Lawson Aguilar @ May 23 2018 11:08AM
[2018-05-23] MEDS ORDERED: Azithromycin 500 MG in Sodium Chloride 0.9% 250 ML IV ONE (12:01)
--- NOTE | 2018-05-23 12:47 | PCM.HP ---
H&P History of Present Illness - General Date of Service: 05/23/18 Admit Problem/Dx: Admission Diagnosis/Problem Admission Diagnosis/Problem Pneumonia Source of Information: Patient, Old Records, Provider, RN Notes Reviewed History Limitations: Reports: No Limitations - History of Present Illness Initial Comments - Free Text/Narative: Ms. Obrien is a 73-year-old woman who was admitted through the emergency department with weakness and hypoxia, secondary to pneumonia. She has been admitted to this facility twice in the past several weeks. Initially experienced lower GI bleeding and on colonoscopy was found to have evidence of distal colitis which was felt to be infectious. She received oral antibiotic therapy and returned again with lower GI bleeding and severe anemia. She was transfused and EGD was performed which was found to be unremarkable. Colonoscopy was performed again and showed evidence of healing of her distal colitis no other obvious source of inflammation or bleeding was identified. She felt well after discharge but now over the past few days has been somewhat short of breath and progressively more weak. On evaluation in the emergency department she is found to have elevated white blood cell count. Chest x-ray showed no obvious infiltrates, but because of hypoxia CT scan of the chest was obtained. This showed no evidence of significant pulmonary emboli, there was evidence of bibasilar atelectasis versus infiltrate. She denies significant cough and had not noted fever or chills at home. On evaluation emergency room department she was found to have significant temperature elevation of 102.7. Urinalysis is clear and she denies significant abdominal pain. Lower Back Pain Score (Numeric/FACES): 8 - Related Data Allergies/Adverse Reactions: Allergies Allergy/AdvReac Type Severity Reaction Status Date / Time hydrochlorothiazide Allergy Other Verified 05/23/18 07:18 [From Dyazide] oxybutynin Allergy Other Verified 05/23/18 07:18 Ykguesk-Sxi-Dnu Reductase Allergy Other Verified 05/23/18 07:18 Inhibitor triamterene [From Dyazide] Allergy Other Verified 05/23/18 07:18 budesonide [From Symbicort] AdvReac Nausea and Verified 05/23/18 07:18 Vomiting formoterol fumarate AdvReac Nausea and Verified 05/23/18 07:18 [From Symbicort] Vomiting pregabalin [From Lyrica] AdvReac Headache Verified 05/23/18 07:18 tizanidine AdvReac Nausea Verified 05/23/18 07:18 Home Medications: Home Meds Hydroxychloroquine Sulfate 400 mg PO DAILY 05/09/13 [History] cycloSPORINE [Restasis] 1 drop EYEBOTH BID 05/09/13 [History] Gabapentin [Neurontin] 600 mg PO BID 01/07/15 [History] Loratadine [Allergy Relief] 10 mg PO DAILY 01/07/15 [History] Losartan Potassium [Cozaar] 100 mg PO DAILY 01/07/15 [History] Albuterol [Proventil Neb Soln] 3 ml INH Q4H PRN 09/22/15 [History] Albuterol [Ventolin HFA] 2 puff INH Q6H PRN 09/22/15 [History] Calcium Citrate/Vitamin D3 [Calcium Citrate + D] 200 - 250 mg PO BID 09/22/15 [ History] Furosemide 40 mg PO DAILY 09/22/15 [History] Gabapentin [Neurontin] 1,200 mg PO QPM 01/05/16 [History] Magnesium Oxide 400 mg PO TID 05/17/16 [History] Naproxen 500 mg PO BID 05/17/16 [History] amLODIPine Besylate [Amlodipine Besylate] 10 mg PO DAILY 11/15/17 [History] Rivaroxaban [Xarelto] 20 mg PO DAILY 04/09/18 [History] Hydrocodone/Acetaminophen [Hydrocodon-Acetaminophen 5-325] 1 tab PO Q4HR PRN 01/05 [History] Ferrous Sulfate 325 mg PO BIDAC #60 tablet 05/14/18 [Rx] Past Medical History HEENT History: Reports: Glaucoma, Impaired Vision Other HEENT History: Otitis externa of right ear, bilateral dry eyes Cardiovascular History: Reports: CAD, Heart Murmur, High Cholesterol, Hypertension, SOB on Exertion Other Cardiovascular History: RBBB,ventricular diastolic dysfunction Respiratory History: Reports: Asthma, COPD, Other (See Below) Other Respiratory History: pulmonary hypertension. suppose to be on home O2 due to COPD, patient discontinued use and sent equipment with oxygen supplier. Patient normally on 2L continuous at home. Uses O2 at night. Gastrointestinal History: Reports: Chronic Diarrhea Genitourinary History: Reports: Diabetic Nephropathy, Urinary Incontinence [employer]ER History: Reports: Musculoskeletal History: Reports: Arthritis, Back Pain, Chronic, Fracture Other Musculoskeletal History: fx ankle Endocrine/Metabolic History: Reports: Diabetes, Type II, Obesity/BMI 30+, Osteoporosis Other Endocrine/Metabolic History: lupus Hematologic History: Reports: Anticoagulation Therapy Immunologic History: Reports: SLE Other Immunologic History: lupus anticoagulant positive Dermatologic History: Reports: Venous Stasis Dermatitis - Infectious Disease History Infectious Disease History: Reports: Chicken Pox - Past Surgical History Respiratory Surgical History: Reports: None Female Surgical History: Reports: Breast Biopsy Musculoskeletal Surgical History: Reports: Other (See Below) Other Musculoskeletal Surgeries/Procedures:: left ankle repair Dermatological Surgical History: Reports: Skin Biopsy Social & Family History - Tobacco Use Smoking Status *Q: Never Smoker Second Hand Smoke Exposure: No - Caffeine Use Caffeine Use: Reports: Coffee, Soda Other Caffeine Use: 3 cups coffee daily, 1 can pop dailty - Recreational Drug Use Recreational Drug Use: No - Living Situation & Occupation Living situation: Reports: Single, Alone (lives alone in her home in [place], [place]., 2 children; son Palmer,who visits on weekends, Daughter two years ago of overdose. 3 grandchildren.) H&P Review of Systems - Review of Systems: Review Of Systems: See Below General: Reports: Fever, Weakness. Denies: Chills HEENT: Reports: No Symptoms Pulmonary: Reports: Shortness of Breath. Denies: Wheezing, Pleuritic Chest Pain , Cough, Sputum, Hemoptysis Cardiovascular: Reports: Dyspnea on Exertion. Denies: Chest Pain, Palpitations , Orthopnea, PND, Edema, Lightheadedness Gastrointestinal: Reports: No Symptoms Genitourinary: Reports: No Symptoms Musculoskeletal: Reports: No Symptoms Skin: Reports: No Symptoms Psychiatric: Reports: No Symptoms Neurological: Reports: No Symptoms Hematologic/Lymphatic: Reports: No Symptoms Immunologic: Reports: No Symptoms Exam - Exam Exam: See Below - Vital Signs Vital Signs: Last Vital Signs Temp 101.7 F H 05/23/18 11:00 Pulse 96 05/23/18 12:00 Resp 16 05/23/18 12:00 BP 115/46 L 05/23/18 12:00 Pulse Ox 92 L 05/23/18 12:00 Weight: 172 lb - Exam Quality Assessment: Supplemental Oxygen, DVT Prophylaxis General: Alert, Oriented, Cooperative, Mild Distress HEENT: Conjunctiva Clear, Hearing Intact, Normal Nasal Septum, Posterior Pharynx Clear, Pupils Equal. No: Mucosa Moist & [place] Neck: Supple, Trachea Midline, +2 Carotid Pulse wo Bruit Lungs: Clear to Auscultation, Normal Respiratory Effort, Decreased Breath Sounds , Rhonchi. No: Rales, Rub, Stridor Cardiovascular: Regular Rate, Normal S1, Normal S2, Irregular Rhythm. No: Systolic Murmur, Diastolic Murmur GI/Abdominal Exam: Soft, Non-Tender, No Organomegaly, No Distention Back Exam: Normal Inspection, Full Range of Motion Extremities: Non-Tender, No Pedal Edema Skin: Warm, Dry, Intact Neurological: Cranial Nerves Intact, Strength Equal Bilateral, Normal Speech, Normal Tone, Sensation Intact. No: Focal Deficit Neuro Extensive - Mental Status: Alert, Oriented x3, Normal Mood/Affect, Normal Cognition, Memory Intact - Patient Data Lab Results Last 24 hrs: Laboratory Results - last 24 hr 05/23/18 05/23/18 05/23/18 Range/Units 07:44 08:05 08:05 WBC 16.6 H (4.5-11.0) K/uL RBC 3.69 (3.30-5.50) M/uL Hgb 9.9 L (12.0-15.0) g/dL Hct 32.7 L (36.0-48.0) % MCV 89 (80-98) fL MCH 27 (27-31) pg MCHC 30 L (32-36) % Plt Count 130 L (150-400) K/uL Neut % (Auto) 93 H (36-66) % Lymph % (Auto) 3 L (24-44) % Baxter % (Auto) 4 (2-6) % Eos % (Auto) 0 L (2-4) % Baso % (Auto) 0 (0-1) % D-Dimer, Quantitative (0.0-400.0) ng/mL Puncture Site Lt radial ABG pH 7.465 H (7.350-7.450) ABG pCO2 36.2 (35.0-42.0) mmHg ABG pO2 57.8 L (75.0-100.0) mmHg ABG HCO3 25.7 (22.0-26.0) mmol/L ABG Total CO2 23.7 (21.0-25.0) mmol/L ABG O2 Saturation 91.3 L (95.0-98.0) % ABG O2 Content 12.2 L (15.0-23.0) %vol ABG Base Excess 2.4 mm/L ABG Hemoglobin 9.8 L (12.0-16.0) g/dL ABG Oxyhemoglobin 88.4 % ABG Carboxyhemoglobin 2.6 H (0.0-1.6) % ABG Methemoglobin 0.6 % Luis Felipe Test Passed O2 Delivery Device Nasal cannula Oxygen Flow Rate 2 L Sodium 141 (140-148) mmol/L Potassium 3.6 (3.6-5.2) mmol/L Chloride 108 (100-108) mmol/L Carbon Dioxide 27 (21-32) mmol/L Anion Gap 6.0 (5.0-14.0) mmol/L BUN 22 H (7-18) mg/dL Creatinine 1.0 (0.6-1.0) mg/dL Est Cr Clr Drug Dosing 40.81 mL/min Estimated GFR (MDRD) 55 L (>60) Glucose 96 (74-106) mg/dL Lactic Acid (0.4-2.0) mmol/L Calcium 8.0 L (8.5-10.1) mg/dL Total Bilirubin 0.7 D (0.2-1.0) mg/dL AST 42 H (15-37) U/L ALT 26 (12-78) U/L Alkaline Phosphatase 96 (46-116) U/L Troponin I (0.000-0.056) ng/mL C-Reactive Protein 4.21 H (0.0-0.3) mg/dL Total Protein 6.9 (6.4-8.2) g/dL Albumin 2.3 L (3.4-5.0) g/dL Globulin 4.6 H (2.3-3.5) g/dL Albumin/Globulin Ratio 0.5 L (1.2-2.2) Urine Color Urine Appearance Urine pH (4.5-8.0) Ur Specific [place] (1.008-1.030) Urine Protein (NEGATIVE) mg/dL Urine Glucose (UA) (NEGATIVE) mg/dL Urine Ketones (NEGATIVE) mg/dL Urine Occult Blood (NEGATIVE) Urine Nitrite (NEGATIVE) Urine Bilirubin (NEGATIVE) Urine Urobilinogen (NORMAL) mg/dL Ur Leukocyte Esterase (NEGATIVE) Urine RBC (0-5) Urine WBC (0-5) Ur Epithelial Cells Amorphous Sediment Urine Bacteria Urine Mucus Urine Other 05/23/18 05/23/18 05/23/18 Range/Units 08:05 08:48 09:23 WBC (4.5-11.0) K/uL RBC (3.30-5.50) M/uL Hgb (12.0-15.0) g/dL Hct (36.0-48.0) % MCV (80-98) fL MCH (27-31) pg MCHC (32-36) % Plt Count (150-400) K/uL Neut % (Auto) (36-66) % Lymph % (Auto) (24-44) % Baxter % (Auto) (2-6) % Eos % (Auto) (2-4) % Baso % (Auto) (0-1) % D-Dimer, Quantitative (0.0-400.0) ng/mL Puncture Site ABG pH (7.350-7.450) ABG pCO2 (35.0-42.0) mmHg ABG pO2 (75.0-100.0) mmHg ABG HCO3 (22.0-26.0) mmol/L ABG Total CO2 (21.0-25.0) mmol/L ABG O2 Saturation (95.0-98.0) % ABG O2 Content (15.0-23.0) %vol ABG Base Excess mm/L ABG Hemoglobin (12.0-16.0) g/dL ABG Oxyhemoglobin % ABG Carboxyhemoglobin (0.0-1.6) % ABG Methemoglobin % Luis Felipe Test O2 Delivery Device Oxygen Flow Rate L Sodium (140-148) mmol/L Potassium (3.6-5.2) mmol/L Chloride (100-108) mmol/L Carbon Dioxide (21-32) mmol/L Anion Gap (5.0-14.0) mmol/L BUN (7-18) mg/dL Creatinine (0.6-1.0) mg/dL Est Cr Clr Drug Dosing mL/min Estimated GFR (MDRD) (>60) Glucose (74-106) mg/dL Lactic Acid 1.5 (0.4-2.0) mmol/L Calcium (8.5-10.1) mg/dL Total Bilirubin (0.2-1.0) mg/dL AST (15-37) U/L ALT (12-78) U/L Alkaline Phosphatase (46-116) U/L Troponin I 0.082 H* (0.000-0.056) ng/mL C-Reactive Protein (0.0-0.3) mg/dL Total Protein (6.4-8.2) g/dL Albumin (3.4-5.0) g/dL Globulin (2.3-3.5) g/dL Albumin/Globulin Ratio (1.2-2.2) Urine Color Yellow Urine Appearance Slightly cloudy Urine pH 7.0 (4.5-8.0) Ur Specific [place] 1.010 (1.008-1.030) Urine Protein 30 H (NEGATIVE) mg/dL Urine Glucose (UA) Normal (NEGATIVE) mg/dL Urine Ketones Negative (NEGATIVE) mg/dL Urine Occult Blood Trace (NEGATIVE) Urine Nitrite Negative (NEGATIVE) Urine Bilirubin Negative (NEGATIVE) Urine Urobilinogen Normal (NORMAL) mg/dL Ur Leukocyte Esterase Negative (NEGATIVE) Urine RBC 0-5 (0-5) Urine WBC Not seen (0-5) Ur Epithelial Cells Not seen Amorphous Sediment Not seen Urine Bacteria Not seen Urine Mucus Moderate Urine Other See note 05/23/18 Range/Units 09:23 WBC (4.5-11.0) K/uL RBC (3.30-5.50) M/uL Hgb (12.0-15.0) g/dL Hct (36.0-48.0) % MCV (80-98) fL MCH (27-31) pg MCHC (32-36) % Plt Count (150-400) K/uL Neut % (Auto) (36-66) % Lymph % (Auto) (24-44) % [place] % (Auto) (2-6) % Eos % (Auto) (2-4) % Baso % (Auto) (0-1) % D-Dimer, Quantitative 2660 H (0.0-400.0) ng/mL Puncture Site ABG pH (7.350-7.450) ABG pCO2 (35.0-42.0) mmHg ABG pO2 (75.0-100.0) mmHg ABG HCO3 (22.0-26.0) mmol/L ABG Total CO2 (21.0-25.0) mmol/L ABG O2 Saturation (95.0-98.0) % ABG O2 Content (15.0-23.0) %vol ABG Base Excess mm/L ABG Hemoglobin (12.0-16.0) g/dL ABG Oxyhemoglobin % ABG Carboxyhemoglobin (0.0-1.6) % ABG Methemoglobin % Luis Felipe Test O2 Delivery Device Oxygen Flow Rate L Sodium (140-148) mmol/L Potassium (3.6-5.2) mmol/L Chloride (100-108) mmol/L Carbon Dioxide (21-32) mmol/L Anion Gap (5.0-14.0) mmol/L BUN (7-18) mg/dL Creatinine (0.6-1.0) mg/dL Est Cr Clr Drug Dosing mL/min Estimated GFR (MDRD) (>60) Glucose (74-106) mg/dL Lactic Acid (0.4-2.0) mmol/L Calcium (8.5-10.1) mg/dL Total Bilirubin (0.2-1.0) mg/dL AST (15-37) U/L ALT (12-78) U/L Alkaline Phosphatase (46-116) U/L Troponin I (0.000-0.056) ng/mL C-Reactive Protein (0.0-0.3) mg/dL Total Protein (6.4-8.2) g/dL Albumin (3.4-5.0) g/dL Globulin (2.3-3.5) g/dL Albumin/Globulin Ratio (1.2-2.2) Urine Color Urine Appearance Urine pH (4.5-8.0) Ur Specific [place] (1.008-1.030) Urine Protein (NEGATIVE) mg/dL Urine Glucose (UA) (NEGATIVE) mg/dL Urine Ketones (NEGATIVE) mg/dL Urine Occult Blood (NEGATIVE) Urine Nitrite (NEGATIVE) Urine Bilirubin (NEGATIVE) Urine Urobilinogen (NORMAL) mg/dL Ur Leukocyte Esterase (NEGATIVE) Urine RBC (0-5) Urine WBC (0-5) Ur Epithelial Cells Amorphous Sediment Urine Bacteria Urine Mucus Urine Other Result Diagrams: 05/23/18 08:05 05/23/18 08:05 Antwon Results Last 24 hrs: Microbiology 05/23/18 08:09 Influenza Type A Antigen Screen - Final Nasal Aspirate, Unspecified NEGATIVE INFLUENZA A VIRUS AG Influenza Type B Antigen Screen - Final NEGATIVE INFLUENZA B VIRUS AG *Q Meaningful Use (ADM) - VTE *Q VTE Pharmacological Contraindications *Q: High INR Value - VTE Risk Assess *Q Each Risk Factor Represents 1 Point: Serious lung disease including pneumonia, Abnormal Pulmonary Function (COPD) Total Score 1 Point Risk Factors: 2 Each Risk Factor Represents 2 Points: Age 60 - 74 Years Total Score 2 Point Risk Factors: 2 Each Risk Factor Represents 3 Points: None Total Score 3 Point Risk Factors: 0 Each Risk Factor Represents 5 Points: None Total Score 5 Point Risk Factors: 0 Venous Thromboembolism Risk Factor Score *Q: 4 Problem List Initiated/Reviewed/Updated: Yes Orders Last 24hrs: Active Orders 24 hr Category Date Time Status Patient Status Manage Transfer [TRANSFER] Routine ADT 05/23/18 12:37 Ordered Vital Signs [RC] Q1H Care 05/23/18 07:46 Active CULTURE BLOOD [BC] Urgent Lab 05/23/18 08:00 Received CULTURE BLOOD [BC] Urgent Lab 05/23/18 08:05 Received CULTURE RESPIRATORY + SMEAR [RM] Urgent Lab 05/23/18 07:44 Ordered Azithromycin [Zithromax] 500 mg Med 05/23/18 12:01 Active Sodium Chloride 0.9% [Normal Saline] 250 ml IV ONETIME Iopamidol [Isovue-370 (76%)] Med 05/23/18 10:15 Active 100 ml IV . DIRECTED Lactated Ringers [Ringers, Lactated] 1,000 ml Med 05/23/18 07:45 Active IV ASDIRECTED Sodium Chloride 0.9% [Normal Saline] 90 ml Med 05/23/18 10:15 Active IV ASDIRECTED Blood Culture x2 Reflex Set [OM.PC] Urgent Oth 05/23/18 07:46 Ordered Resuscitation Status Routine Resus Stat 05/23/18 12:40 Ordered Medication Orders Lactated Ringer's (Ringers, Lactated) 1,000 mls @ 999 mls/hr IV ASDIRECTED JERRI Last Admin: 05/23/18 08:03 Dose: 999 mls/hr Sodium Chloride (Normal Saline) 90 mls @ 4 mls/sec IV ASDIRECTED JERRI Last Admin: 05/23/18 10:36 Dose: 4 mls/sec Azithromycin 500 mg/ Sodium (Chloride) 250 mls @ 250 mls/hr IV ONETIME ONE Stop: 05/23/18 13:00 Last Admin: 05/23/18 12:16 Dose: 250 mls/hr Iopamidol (Isovue-370 (76%)) 100 ml IV . DIRECTED JERRI Last Admin: 05/23/18 10:36 Dose: 100 ml Assessment/Plan Comment:: ASSESSMENT AND PLAN BIBASILAR CMLLJNAIN-[id number] and associated with hypoxia. No evidence of significant sepsis on admission. -IV fluids for hydration -Blood and sputum cultures pending -Nebulizer therapy with albuterol and duo nebs -IV Rocephin and azithromycin pending culture results HYPOXIA-secondary to pneumonia and underlying COPD -Supplemental oxygen as needed COPD -Management as above RECENT COLITIS-resolved, currently denies abdominal pain, hematochezia, or diarrhea CHRONIC KIDNEY DISEASE STAGE III -Closely monitor urine output and renal function ELEVATED TROPONIN-likely secondary to demand ischemia in the setting of pneumonia with hypoxia -Serial troponin levels ATRIAL FIBRILLATION-rate well controlled, on long-term oral anticoagulation with Xarelto -Continue oral anticoagulation MAINTENANCE ISSUES -DVT prophylaxis; current therapy with Xarelto should provide adequate DVT prophylaxis -GI prophylaxis; not indicated -Villed[place] catheter; not indicated -Nutrition; regular diet -Nicotine dependence; not required CODE STATUS-FULL CODE ADMISSION STATUS-patient will be admitted to inpatient status, expect at least a 2 night hospital stay for evaluation and management of problems as outlined above. At the time of this admission I do not reasonably expected evaluation and management of this problem will require more than a 96 hour hospital stay. DISPOSITION-anticipate discharge to home after the hospital stay. PRIMARY CARE PROVIDER-
[2018-05-23] MEDS ORDERED: Sodium Chloride 0.9% 10 ML Syringe FLUSH PRN (13:02)
[2018-05-23] MEDS ORDERED: Albuterol 0.083% 2.5 MG/3 ML Neb Soln INH PRN (13:02)
[2018-05-23] MEDS ORDERED: Ondansetron 4 MG/2 ML SDV IV PRN (13:02)
[2018-05-23] MEDS: cefTRIAXone 1 GM in Sodium Chloride 0.9% 50 ML IV SCH (13:52)
[2018-05-23] MEDS: Magnesium Oxide 400 MG Tab PO SCH ×2 (13:52→20:23)
[2018-05-23] MEDS: Acetaminophen/HYDROcodone 325-5 MG Tab PO PRN ×2 (13:52→19:17)
[2018-05-23] MEDS: Lactated Ringers 1,000 ML IV SCH (13:53)
[2018-05-23] MEDS: Albuterol/Ipratropium 3.0-0.5 MG/3 ML Neb Soln NEB SCH ×2 (14:32→20:24)
[2018-05-23] MEDS: Ferrous Sulfate 325 MG Tab PO SCH (16:58)
[2018-05-23] MEDS ORDERED: Gabapentin 400 MG Cap PO SCH (17:00)
[2018-05-23] MEDS ORDERED: Vancomycin 1 GM SDV IV SCH ×2 (17:00)
[2018-05-23] MEDS ORDERED: Non-Formulary Medication 1 Each (Gabapentin [Neurontin] 1,200 MG) PO SCH (17:00)
[2018-05-23] MEDS: Lactobacillus Rhamnosus GG (Probiotic) Cap PO SCH ×2 (17:50→20:23)
[2018-05-23] MEDS: Gabapentin 300 MG Cap PO SCH (20:23)
[2018-05-23] MEDS: cycloSPORINE Ophth Drops U/D Box of 30 EYEBOTH SCH (20:24)
[2018-05-23] MEDS ORDERED: Gabapentin 300 MG Cap PO SCH (21:00)
[2018-05-23] MEDS ORDERED: Non-Formulary Medication 1 Each (Gabapentin [Neurontin] 600 MG) PO SCH (21:00)
[2018-05-24] MEDS: Acetaminophen 325 MG Tab PO PRN ×3 (03:28→19:28)
[2018-05-24] MEDS: Acetaminophen/HYDROcodone 325-5 MG Tab PO PRN ×2 (03:28→14:13)
[2018-05-24] MEDS: Lactated Ringers 1,000 ML IV SCH ×2 (03:32→22:22)
[2018-05-24] MEDS ORDERED: Ibuprofen 600 MG Tab PO ONE (04:00)
[2018-05-24] MEDS: Albuterol/Ipratropium 3.0-0.5 MG/3 ML Neb Soln NEB SCH ×4 (07:09→21:56)
[2018-05-24] MEDS: Ferrous Sulfate 325 MG Tab PO SCH ×2 (08:11→16:38)
[2018-05-24] MEDS: Furosemide 40 MG Tab PO SCH (08:44)
[2018-05-24] MEDS: Magnesium Oxide 400 MG Tab PO SCH ×3 (08:45→21:56)
[2018-05-24] MEDS: Gabapentin 300 MG Cap PO SCH (08:45)
[2018-05-24] MEDS: Hydroxychloroquine 200 MG Tab PO SCH (08:51)
[2018-05-24] MEDS: cycloSPORINE Ophth Drops U/D Box of 30 EYEBOTH SCH ×2 (08:51→21:56)
[2018-05-24] MEDS: Rivaroxaban 10 MG Tab PO SCH (08:52)
[2018-05-24] MEDS: Magnesium Sulfate/Water 2 GM in Premix Bag 1 BAG IV SCH ×2 (08:57→15:04)
[2018-05-24] MEDS ORDERED: Magnesium Oxide 400 MG Tab PO SCH (09:00)
[2018-05-24] MEDS ORDERED: RIVAROXABAN PO SCH (09:00)
[2018-05-24] MEDS ORDERED: Furosemide 20 MG Tab PO SCH (09:00)
[2018-05-24] MEDS ORDERED: Non-Formulary Medication 1 Each (Losartan Potassium [Cozaar] 100 MG) PO SCH (09:00)
[2018-05-24] MEDS: Lactobacillus Rhamnosus GG (Probiotic) Cap PO SCH ×2 (09:15→21:55)
[2018-05-24] MEDS ORDERED: Sodium Chloride 0.9% 500 ML IV ONE (09:31)
[2018-05-24] MEDS: Losartan 50 MG Tab PO SCH (09:31)
[2018-05-24] MEDS: amLODIPine 10 MG Tab PO SCH (09:32)
[2018-05-24] MEDS ORDERED: Azithromycin 500 MG in Sodium Chloride 0.9% 250 ML IV SCH (12:00)
--- NOTE | 2018-05-24 12:39 | PCM.PN ---
- General Info Date of Service: 05/24/18 Subjective Update: Ms. Obrien has improved since admission, energy level better today and she is more alert and interactive. White blood cell count remains elevated and she has had recurrent temperature elevations as well as some episodes of hypotension, indicating associated sepsis. Blood cultures are growing gram-positive cocci which appeared to be consistent with group A strep. Functional Status: Reports: Tolerating Diet, Urinating - Review of Systems General: Reports: Fever, Weakness, Chills Pulmonary: Reports: Shortness of Breath, Cough. Denies: Sputum, Wheezing Cardiovascular: Reports: Dyspnea on Exertion. Denies: Chest Pain, Palpitations , Orthopnea, PND, Edema, Lightheadedness Gastrointestinal: Reports: No Symptoms - Patient Data Vitals - Most Recent: Last Vital Signs Temp 97.8 F 05/24/18 10:48 Pulse 66 05/24/18 10:51 Resp 18 05/24/18 10:48 BP 115/39 L 05/24/18 10:48 Pulse Ox 98 05/24/18 10:48 Weight - Most Recent: 174 lb 8 oz I&O - Last 24 Hours: Intake & Output 05/23/18 05/24/18 05/24/18 22:59 06:59 14:59 Intake Total 716 1278 1040 Output Total 500 250 150 Balance 216 1028 890 Lab Results Last 24 Hours: Laboratory Results - last 24 hr 05/23/18 05/23/18 05/24/18 Range/Units 15:57 22:00 03:57 WBC 20.0 H (4.5-11.0) K/uL RBC 3.44 (3.30-5.50) M/uL Hgb 9.3 L (12.0-15.0) g/dL Hct 30.8 L (36.0-48.0) % MCV 90 (80-98) fL MCH 27 (27-31) pg MCHC 30 L (32-36) % Plt Count 141 L (150-400) K/uL Add Manual Diff Yes Neutrophils % (Manual) 75 H (36-66) % Band Neutrophils % 19 H (5-11) % Lymphocytes % (Manual) 1 L (24-44) % Monocytes % (Manual) 5 (2-6) % Sodium (140-148) mmol/L Potassium (3.6-5.2) mmol/L Chloride (100-108) mmol/L Carbon Dioxide (21-32) mmol/L Anion Gap (5.0-14.0) mmol/L BUN (7-18) mg/dL Creatinine (0.6-1.0) mg/dL Est Cr Clr Drug Dosing mL/min Estimated GFR (MDRD) (>60) Glucose (74-106) mg/dL Calcium (8.5-10.1) mg/dL Magnesium (1.8-2.4) mg/dL Troponin I 0.115 H* 0.049 (0.000-0.056) ng/mL 05/24/18 Range/Units 03:57 WBC (4.5-11.0) K/uL RBC (3.30-5.50) M/uL Hgb (12.0-15.0) g/dL Hct (36.0-48.0) % MCV (80-98) fL MCH (27-31) pg MCHC (32-36) % Plt Count (150-400) K/uL Add Manual Diff Neutrophils % (Manual) (36-66) % Band Neutrophils % (5-11) % Lymphocytes % (Manual) (24-44) % Monocytes % (Manual) (2-6) % Sodium 140 (140-148) mmol/L Potassium 4.3 (3.6-5.2) mmol/L Chloride 108 (100-108) mmol/L Carbon Dioxide 23 (21-32) mmol/L Anion Gap 9.0 (5.0-14.0) mmol/L BUN 32 H (7-18) mg/dL Creatinine 1.4 H (0.6-1.0) mg/dL Est Cr Clr Drug Dosing 29.15 mL/min Estimated GFR (MDRD) 37 L (>60) Glucose 107 H (74-106) mg/dL Calcium 7.6 L (8.5-10.1) mg/dL Magnesium 1.7 L (1.8-2.4) mg/dL Troponin I (0.000-0.056) ng/mL [place] Results Last 24 Hours: Microbiology 05/23/18 08:00 Aerobic Blood Culture - Preliminary Blood - Arm, Left Streptococcus Group A Anaerobic Blood Culture - Preliminary Streptococcus Group A 05/23/18 08:05 Aerobic Blood Culture - Preliminary Blood - Arm, Left Streptococcus Group A Anaerobic Blood Culture - Preliminary Streptococcus Group A 05/23/18 17:07 Gram Stain - Final Sputum - Expectorated 05/23/18 08:09 Influenza Type A Antigen Screen - Final Nasal Aspirate, Unspecified NEGATIVE INFLUENZA A VIRUS AG Influenza Type B Antigen Screen - Final NEGATIVE INFLUENZA B VIRUS AG Med Orders - Current: Current Medications Acetaminophen (Tylenol) 650 mg PO Q4H PRN PRN Reason: Pain (Mild 1-3)/fever Last Admin: 05/24/18 03:28 Dose: 650 mg Hydrocodone Bitart/Acetaminophen ([place] 325-5 Mg) 1 tab PO Q4H PRN PRN Reason: Pain (moderate 4-6) Last Admin: 05/24/18 03:28 Dose: 1 tab Albuterol (Proventil Neb Soln) 2.5 mg INH Q4H PRN PRN Reason: wheezing Last Admin: 05/24/18 03:28 Dose: 2.5 mg Albuterol/Ipratropium (Duoneb 3.0-0.5 Mg/3 Ml) 3 ml NEB QIDRT [facility] Last Admin: 05/24/18 10:51 Dose: 3 ml Amlodipine Besylate (Norvasc) 10 mg PO DAILY [facility] Last Admin: 05/24/18 09:32 Dose: Not Given Cyclosporine (Restasis) 0 each EYEBOTH BID [facility] Last Admin: 05/24/18 08:51 Dose: 1 drop Ferrous Sulfate (Ferrous Sulfate) 325 mg PO BIDMEALS [facility] Last Admin: 05/24/18 08:11 Dose: 325 mg Furosemide (Lasix) 40 mg PO DAILY [facility] Last Admin: 05/24/18 08:44 Dose: 40 mg Gabapentin (Neurontin) 800 mg PO BID [facility] Hydroxychloroquine Sulfate (Plaquenil) 400 mg PO DAILY [facility] Last Admin: 05/24/18 08:51 Dose: 400 mg Ceftriaxone Sodium 1 gm/ (Sodium Chloride) 50 mls @ 100 mls/hr IV Q24H [facility] Last Admin: 05/23/18 13:52 Dose: 100 mls/hr Lactated Ringer's (Ringers, Lactated) 1,000 mls @ 75 mls/hr IV ASDIRECTED [facility] Last Admin: 05/24/18 03:32 Dose: 75 mls/hr Magnesium Sulfate 2 gm/ Premix 50 mls @ 25 mls/hr IV Q6H [facility] Stop: 05/24/18 16:59 Last Admin: 05/24/18 08:57 Dose: 25 mls/hr Lactobacillus Rhamnosus (Culturelle) 1 cap PO BID [facility] Last Admin: 05/24/18 09:15 Dose: 1 cap Losartan Potassium (Cozaar) 100 mg PO DAILY [facility] Last Admin: 05/24/18 09:31 Dose: Not Given Magnesium Oxide (Magnesium Oxide) 400 mg PO TID [facility] Last Admin: 05/24/18 08:45 Dose: 400 mg Ondansetron HCl (Zofran) 4 mg IV Q4H PRN PRN Reason: Nausea/Vomiting Rivaroxaban (Xarelto) 20 mg PO DAILY [facility] Last Admin: 05/24/18 08:52 Dose: 20 mg Senna/Docusate Sodium (Senna Plus) 1 tab PO BID PRN PRN Reason: Constipation Sodium Chloride (Saline Flush) 10 ml FLUSH ASDIRECTED PRN PRN Reason: Keep Vein Open Discontinued Medications Gabapentin (Neurontin) 1,200 mg PO QPM [facility] Last Admin: 05/23/18 16:58 Dose: 1,200 mg Gabapentin (Neurontin) 600 mg PO BID [facility] Last Admin: 05/24/18 08:45 Dose: 600 mg Hydromorphone HCl (Dilaudid) 1 mg IVPUSH ONETIME ONE Stop: 05/23/18 07:50 Last Admin: 05/23/18 08:03 Dose: 1 mg Lactated Ringer's (Ringers, Lactated) 1,000 mls @ 999 mls/hr IV ASDIRECTED [facility] Last Admin: 05/23/18 08:03 Dose: 999 mls/hr Levofloxacin/Dextrose 500 mg/ (Premix) 100 mls @ 100 mls/hr IV ONETIME ONE Stop: 05/23/18 10:21 Last Admin: 05/23/18 09:33 Dose: 100 mls/hr Lactated Ringer's (Ringers, Lactated) 1,000 mls @ 500 mls/hr IV BOLUS ONE Stop: 05/23/18 11:27 Last Admin: 05/23/18 09:32 Dose: 500 mls/hr Sodium Chloride (Normal Saline) 90 mls @ 4 mls/sec IV ASDIRECTED [facility] Last Admin: 05/23/18 10:36 Dose: 4 mls/sec Azithromycin 500 mg/ Sodium (Chloride) 250 mls @ 250 mls/hr IV ONETIME ONE Stop: 05/23/18 13:00 Last Admin: 05/23/18 12:16 Dose: 250 mls/hr Azithromycin 500 mg/ Sodium (Chloride) 250 mls @ 250 mls/hr IV Q24H [facility] Last Admin: 05/24/18 11:49 Dose: 250 mls/hr Vancomycin HCl 1 gm/ Sodium (Chloride) 250 mls @ 165 mls/hr IV Q12H [facility] Last Admin: 05/24/18 05:49 Dose: 165 mls/hr Vancomycin HCl 1 gm/ Sodium (Chloride) 250 mls @ 165 mls/hr IV Q24H [facility] Sodium Chloride (Normal Saline) 500 mls @ 500 mls/hr IV .BOLUS ONE Stop: 05/24/18 10:30 Last Admin: 05/24/18 09:51 Dose: 500 mls/hr Ibuprofen (Motrin) 600 mg PO ONETIME ONE Stop: 05/23/18 09:20 Last Admin: 05/23/18 09:26 Dose: 600 mg Ibuprofen (Motrin) 600 mg PO ONETIME ONE Stop: 05/24/18 04:01 Last Admin: 05/24/18 04:18 Dose: 600 mg Iopamidol (Isovue-370 (76%)) 100 ml IV . DIRECTED [facility] Last Admin: 05/23/18 10:36 Dose: 100 ml Lorazepam (Ativan) 0.5 mg IVPUSH ONETIME ONE Stop: 05/23/18 10:03 Last Admin: 05/23/18 10:08 Dose: 0.5 mg Magnesium Oxide (Magnesium Oxide) 400 mg PO BID [facility] Last Admin: 05/24/18 09:32 Dose: Not Given Vancomycin HCl (Vancomycin) 1 gm IV .PHARMACY TO DOSE [facility] Vancomycin HCl (Vancomycin) 0 gm IV .PHARMACY TO DOSE [facility] - Exam Quality Assessment: Supplemental Oxygen, DVT Prophylaxis General: Alert, Oriented, Cooperative, No Acute Distress Lungs: Clear to Auscultation, Normal Respiratory Effort Cardiovascular: Regular Rate, Regular Rhythm, No Murmurs GI/Abdominal Exam: Soft, Non-Tender, No Organomegaly, No Distention Extremities: Non-Tender, No Pedal Edema Skin: Warm, Dry, Intact - Problem List Review Problem List Initiated/Reviewed/Updated: Yes - My Orders Last 24 Hours: My Active Orders 05/23/18 12:40 Resuscitation Status Routine 05/23/18 13:02 Patient Status [ADT] Routine Ambulate [RC] QID Height and Weight [RC] DAILY Intake and Output [RC] QSHIFT Notify Provider Vital Signs [RC] ASDIRECTED Oxygen Therapy [RC] PRN Peripheral IV Care [RC] Q12H Pulse Oximetry [RC] CONTINUOUS RT Aerosol Therapy [RC] ASDIRECTED Up With Assistance [RC] ASDIRECTED Up to Chair [RC] QID VTE/DVT Education [RC] Per Unit Routine Vital Signs [RC] Q4H PT Evaluation and Treatment [CONS] Routine Acetaminophen [Tylenol] 650 mg PO Q4H PRN Acetaminophen/HYDROcodone [[place] 325-5 MG] 1 tab PO Q4H PRN Albuterol [Proventil Neb Soln] 2.5 mg INH Q4H PRN Docusate Sodium/Sennosides [Senna Plus] 1 tab PO BID PRN Lactated Ringers [Ringers, Lactated] 1,000 ml IV ASDIRECTED Ondansetron [Zofran] 4 mg IV Q4H PRN Sodium Chloride 0.9% [Saline Flush] 10 ml FLUSH ASDIRECTED PRN Peripheral IV Insertion Adult [OM.PC] Routine VTE Pharmacological Contraindications [AST] Per Unit Routine 05/23/18 14:00 Magnesium Oxide 400 mg PO TID cefTRIAXone [Rocephin] 1 gm Sodium Chloride 0.9% [Normal Saline] 50 ml IV Q24H 05/23/18 15:00 Albuterol/Ipratropium [DuoNeb 3.0-0.5 MG/3 ML] 3 ml NEB QIDRT 05/23/18 17:00 Ferrous Sulfate 325 mg PO BIDMEALS Lactobacillus Rhamnosus GG [Culturelle] 1 cap PO BID 05/23/18 21:00 cycloSPORINE [Restasis] 0 each EYEBOTH BID 05/23/18 Lunch 2 Gram Sodium Diet [DIET] 05/24/18 09:00 Furosemide [Lasix] 40 mg PO DAILY Hydroxychloroquine [Plaquenil] 400 mg PO DAILY Losartan [Cozaar] 100 mg PO DAILY Magnesium Sulfate/Water [Magnesium Sulfate 2 GM in Water 50 ML] 2 gm Premix Bag 1 bag IV Q6H Rivaroxaban [Xarelto] 20 mg PO DAILY amLODIPine [Norvasc] 10 mg PO DAILY 05/24/18 21:00 Gabapentin [Neurontin] 800 mg PO BID 05/25/18 05:00 BASIC METABOLIC PANEL,BMP [CHEM] Timed CBC WITH AUTO DIFF [HEME] Timed MAGNESIUM [CHEM] Timed - Plan Plan:: ASSESSMENT AND PLAN BIBASILAR [id number] and associated with hypoxia. Blood cultures positive for group A strep, final ID and sensitivities pending. Evidence of associated sepsis with hypotension. -IV fluids for hydration -Blood and sputum cultures pending -Nebulizer therapy with albuterol and duo nebs -Discontinue azithromycin and vancomycin -Continue Rocephin pending final culture results and sensitivities HYPOXIA-secondary to pneumonia and underlying COPD -Supplemental oxygen as needed COPD -Management as above RECENT COLITIS-resolved, currently denies abdominal pain, hematochezia, or diarrhea CHRONIC KIDNEY DISEASE STAGE III-renal function has remained stable thus far -Closely monitor urine output and renal function ELEVATED TROPONIN-resolved ATRIAL FIBRILLATION-rate well controlled, on long-term oral anticoagulation with Xarelto -Continue oral anticoagulation MAINTENANCE ISSUES -DVT prophylaxis; current therapy with Xarelto should provide adequate DVT prophylaxis -GI prophylaxis; not indicated -Villeda catheter; not indicated -Nutrition; regular diet -Nicotine dependence; not required CODE STATUS-FULL CODE ADMISSION STATUS-patient will be admitted to inpatient status, expect at least a 2 night hospital stay for evaluation and management of problems as outlined above. At the time of this admission I do not reasonably expected evaluation and management of this problem will require more than a 96 hour hospital stay. DISPOSITION-anticipate discharge to home after the hospital stay. PRIMARY CARE PROVIDER-
[2018-05-24] MEDS: cefTRIAXone 1 GM in Sodium Chloride 0.9% 50 ML IV SCH (13:19)
[2018-05-24] MEDS: Gabapentin 400 MG Cap PO SCH (21:56)
[2018-05-25] MEDS: Acetaminophen/HYDROcodone 325-5 MG Tab PO PRN ×5 (01:46→22:48)
[2018-05-25] MEDS: Albuterol/Ipratropium 3.0-0.5 MG/3 ML Neb Soln NEB SCH ×4 (07:32→20:51)
[2018-05-25] MEDS: Ferrous Sulfate 325 MG Tab PO SCH ×2 (08:06→16:07)
[2018-05-25] MEDS: Furosemide 40 MG Tab PO SCH (08:06)
[2018-05-25] MEDS: Lactobacillus Rhamnosus GG (Probiotic) Cap PO SCH ×2 (08:06→20:47)
[2018-05-25] MEDS: Gabapentin 400 MG Cap PO SCH ×2 (08:06→20:46)
[2018-05-25] MEDS: Magnesium Oxide 400 MG Tab PO SCH ×3 (08:06→20:47)
[2018-05-25] MEDS: Hydroxychloroquine 200 MG Tab PO SCH (08:07)
[2018-05-25] MEDS: Rivaroxaban 10 MG Tab PO SCH (08:07)
[2018-05-25] MEDS: cycloSPORINE Ophth Drops U/D Box of 30 EYEBOTH SCH ×2 (08:07→20:47)
[2018-05-25] MEDS: Ampicillin 2 GM in Sodium Chloride 0.9% 100 ML IV SCH ×3 (10:25→21:00)
[2018-05-25] MEDS ORDERED: Atropine/Diphenoxylate 0.025-2.5 MG Tab PO PRN (11:30)
[2018-05-25] MEDS: Acetaminophen 325 MG Tab PO PRN ×3 (11:56→22:47)
--- NOTE | 2018-05-25 12:23 | PCM.PN ---
- General Info Date of Service: 05/25/18 Subjective Update: Ms. Obrien is shown further improvement since yesterday with increase in strength. She remains fairly weak, but definitely better than yesterday. Continues to run low-grade temperatures, white blood cell count is improved but remains elevated. Functional Status: Reports: Tolerating Diet, Urinating - Review of Systems General: Reports: Fever, Weakness, Chills Pulmonary: Reports: Shortness of Breath, Cough. Denies: Pleuritic Chest Pain, Sputum, Hemoptysis, Wheezing Cardiovascular: Reports: Dyspnea on Exertion. Denies: Chest Pain, Palpitations , Orthopnea, PND, Edema, Lightheadedness Gastrointestinal: Reports: No Symptoms - Patient Data Vitals - Most Recent: Last Vital Signs Temp 101.1 F H 05/25/18 11:56 Pulse 87 05/25/18 11:00 Resp 18 05/25/18 10:33 BP 145/60 H 05/25/18 10:33 Pulse Ox 95 05/25/18 11:00 Weight - Most Recent: 179 lb 6.4 oz I&O - Last 24 Hours: Intake & Output 05/24/18 05/25/18 05/25/18 22:59 06:59 14:59 Intake Total 1258 780 Output Total 200 800 600 Balance 1058 -800 180 Lab Results Last 24 Hours: Laboratory Results - last 24 hr 05/25/18 05/25/18 Range/Units 04:45 04:45 WBC 14.7 H (4.5-11.0) K/uL RBC 3.37 (3.30-5.50) M/uL Hgb 9.1 L (12.0-15.0) g/dL Hct 30.1 L (36.0-48.0) % MCV 89 (80-98) fL MCH 27 (27-31) pg MCHC 30 L (32-36) % Plt Count 88 L (150-400) K/uL Add Manual Diff Yes Neutrophils % (Manual) 90 H (36-66) % Band Neutrophils % 7 (5-11) % Lymphocytes % (Manual) 2 L (24-44) % Monocytes % (Manual) 1 L (2-6) % Sodium 142 (140-148) mmol/L Potassium 3.8 (3.6-5.2) mmol/L Chloride 110 H (100-108) mmol/L Carbon Dioxide 26 (21-32) mmol/L Anion Gap 9.8 (5.0-14.0) mmol/L BUN 34 H (7-18) mg/dL Creatinine 1.1 H (0.6-1.0) mg/dL Est Cr Clr Drug Dosing 36.78 mL/min Estimated GFR (MDRD) 49 L (>60) Glucose 89 (74-106) mg/dL Calcium 8.0 L (8.5-10.1) mg/dL Magnesium 2.8 H D (1.8-2.4) mg/dL [place] Results Last 24 Hours: Microbiology 05/23/18 08:05 Aerobic Blood Culture - Final Blood - Arm, Left Streptococcus Group A Anaerobic Blood Culture - Final Streptococcus Group A 05/23/18 08:00 Aerobic Blood Culture - Final Blood - Arm, Left Streptococcus Group A Anaerobic Blood Culture - Final Streptococcus Group A 05/23/18 17:07 Gram Stain - Final Sputum - Expectorated Respiratory Culture - Preliminary Streptococcus Group A Med Orders - Current: Current Medications Acetaminophen (Tylenol) 650 mg PO Q4H PRN PRN Reason: Pain (Mild 1-3)/fever Last Admin: 05/25/18 11:56 Dose: 325 mg Hydrocodone Bitart/Acetaminophen ([place] 325-5 Mg) 1 tab PO Q4H PRN PRN Reason: Pain (moderate 4-6) Last Admin: 05/25/18 11:55 Dose: 1 tab Albuterol (Proventil Neb Soln) 2.5 mg INH Q4H PRN PRN Reason: wheezing Last Admin: 05/24/18 03:28 Dose: 2.5 mg Albuterol/Ipratropium (Duoneb 3.0-0.5 Mg/3 Ml) 3 ml NEB QIDRT [facility] Last Admin: 05/25/18 11:00 Dose: 3 ml Amlodipine Besylate (Norvasc) 10 mg PO DAILY [facility] Last Admin: 05/24/18 09:32 Dose: Not Given Cyclosporine (Restasis) 0 each EYEBOTH BID [facility] Last Admin: 05/25/18 08:07 Dose: 1 drop Diphenoxylate HCl/Atropine (Lomotil 0.025-2.5 Mg) 1 tab PO QID PRN PRN Reason: Diarrhea Ferrous Sulfate (Ferrous Sulfate) 325 mg PO BIDMEALS [facility] Last Admin: 05/25/18 08:06 Dose: 325 mg Furosemide (Lasix) 40 mg PO DAILY [facility] Last Admin: 05/25/18 08:06 Dose: 40 mg Gabapentin (Neurontin) 800 mg PO BID [facility] Last Admin: 05/25/18 08:06 Dose: 800 mg Hydroxychloroquine Sulfate (Plaquenil) 400 mg PO DAILY [facility] Last Admin: 05/25/18 08:07 Dose: 400 mg Ampicillin Sodium 2 gm/ Sodium (Chloride) 100 mls @ 200 mls/hr IV Q6H [facility] Last Admin: 05/25/18 10:25 Dose: 200 mls/hr Lactobacillus Rhamnosus (Culturelle) 1 cap PO BID [facility] Last Admin: 05/25/18 08:06 Dose: 1 cap Losartan Potassium (Cozaar) 100 mg PO DAILY [facility] Last Admin: 05/24/18 09:31 Dose: Not Given Magnesium Oxide (Magnesium Oxide) 400 mg PO TID [facility] Last Admin: 05/25/18 08:06 Dose: 400 mg Ondansetron HCl (Zofran) 4 mg IV Q4H PRN PRN Reason: Nausea/Vomiting Rivaroxaban (Xarelto) 15 mg PO DAILY@0800 [facility] Senna/Docusate Sodium (Senna Plus) 1 tab PO BID PRN PRN Reason: Constipation Sodium Chloride (Saline Flush) 10 ml FLUSH ASDIRECTED PRN PRN Reason: Keep Vein Open Discontinued Medications Gabapentin (Neurontin) 1,200 mg PO QPM [facility] Last Admin: 05/23/18 16:58 Dose: 1,200 mg Gabapentin (Neurontin) 600 mg PO BID [facility] Last Admin: 05/24/18 08:45 Dose: 600 mg Hydromorphone HCl (Dilaudid) 1 mg IVPUSH ONETIME ONE Stop: 05/23/18 07:50 Last Admin: 05/23/18 08:03 Dose: 1 mg Lactated Ringer's (Ringers, Lactated) 1,000 mls @ 999 mls/hr IV ASDIRECTED [facility] Last Admin: 05/23/18 08:03 Dose: 999 mls/hr Levofloxacin/Dextrose 500 mg/ (Premix) 100 mls @ 100 mls/hr IV ONETIME ONE Stop: 05/23/18 10:21 Last Admin: 05/23/18 09:33 Dose: 100 mls/hr Lactated Ringer's (Ringers, Lactated) 1,000 mls @ 500 mls/hr IV BOLUS ONE Stop: 05/23/18 11:27 Last Admin: 05/23/18 09:32 Dose: 500 mls/hr Sodium Chloride (Normal Saline) 90 mls @ 4 mls/sec IV ASDIRECTED [facility] Last Admin: 05/23/18 10:36 Dose: 4 mls/sec Azithromycin 500 mg/ Sodium (Chloride) 250 mls @ 250 mls/hr IV ONETIME ONE Stop: 05/23/18 13:00 Last Admin: 05/23/18 12:16 Dose: 250 mls/hr Azithromycin 500 mg/ Sodium (Chloride) 250 mls @ 250 mls/hr IV Q24H [facility] Last Admin: 05/24/18 11:49 Dose: 250 mls/hr Ceftriaxone Sodium 1 gm/ (Sodium Chloride) 50 mls @ 100 mls/hr IV Q24H [facility] Last Admin: 05/24/18 13:19 Dose: 100 mls/hr Lactated Ringer's (Ringers, Lactated) 1,000 mls @ 75 mls/hr IV ASDIRECTED [facility] Last Admin: 05/24/18 22:22 Dose: 75 mls/hr Vancomycin HCl 1 gm/ Sodium (Chloride) 250 mls @ 165 mls/hr IV Q12H [facility] Last Admin: 05/24/18 05:49 Dose: 165 mls/hr Vancomycin HCl 1 gm/ Sodium (Chloride) 250 mls @ 165 mls/hr IV Q24H [facility] Magnesium Sulfate 2 gm/ Premix 50 mls @ 25 mls/hr IV Q6H [facility] Stop: 05/24/18 16:59 Last Admin: 05/24/18 15:04 Dose: 25 mls/hr Sodium Chloride (Normal Saline) 500 mls @ 500 mls/hr IV .BOLUS ONE Stop: 05/24/18 10:30 Last Admin: 05/24/18 09:51 Dose: 500 mls/hr Ibuprofen (Motrin) 600 mg PO ONETIME ONE Stop: 05/23/18 09:20 Last Admin: 05/23/18 09:26 Dose: 600 mg Ibuprofen (Motrin) 600 mg PO ONETIME ONE Stop: 05/24/18 04:01 Last Admin: 05/24/18 04:18 Dose: 600 mg Iopamidol (Isovue-370 (76%)) 100 ml IV . DIRECTED [facility] Last Admin: 05/23/18 10:36 Dose: 100 ml Lorazepam (Ativan) 0.5 mg IVPUSH ONETIME ONE Stop: 05/23/18 10:03 Last Admin: 05/23/18 10:08 Dose: 0.5 mg Magnesium Oxide (Magnesium Oxide) 400 mg PO BID [facility] Last Admin: 05/24/18 09:32 Dose: Not Given Rivaroxaban (Xarelto) 20 mg PO DAILY [facility] Last Admin: 05/25/18 08:07 Dose: 20 mg Vancomycin HCl (Vancomycin) 1 gm IV .PHARMACY TO DOSE [facility] Vancomycin HCl (Vancomycin) 0 gm IV .PHARMACY TO DOSE [facility] - Exam Quality Assessment: Supplemental Oxygen, DVT Prophylaxis General: Alert, Oriented, Cooperative, Mild Distress Lungs: Clear to Auscultation, Normal Respiratory Effort, Decreased Breath Sounds , Rales. No: Rhonchi, Rub Cardiovascular: Regular Rate, No Murmurs, Irregular Rhythm GI/Abdominal Exam: Soft, Non-Tender, No Organomegaly, No Distention Extremities: Non-Tender, No Pedal Edema - Problem List Review Problem List Initiated/Reviewed/Updated: Yes - My Orders Last 24 Hours: My Active Orders 05/24/18 21:00 Gabapentin [Neurontin] 800 mg PO BID 05/25/18 10:00 Ampicillin 2 gm Sodium Chloride 0.9% [Normal Saline] 100 ml IV Q6H 05/25/18 11:30 Atropine/Diphenoxylate [Lomotil 0.025-2.5 MG] 1 tab PO QID PRN Convert IV to Saline Lock [OM.PC] Routine 05/26/18 05:00 BASIC METABOLIC PANEL,BMP [CHEM] Timed CBC WITH AUTO DIFF [HEME] Timed 05/26/18 08:00 Rivaroxaban [Xarelto] 15 mg PO DAILY@0800 - Plan Plan:: ASSESSMENT AND PLAN BIBASILAR [id number] and associated with hypoxia. Blood and sputum cultures positive for strep group A -Saline lock IV -Nebulizer therapy with albuterol and duo nebs -Discontinue Rocephin -IV ampicillin HYPOXIA-secondary to pneumonia and underlying COPD -Supplemental oxygen as needed COPD -Management as above RECENT COLITIS-resolved, currently denies abdominal pain, hematochezia CHRONIC KIDNEY DISEASE STAGE III-renal function has remained stable thus far -Closely monitor urine output and renal function ELEVATED TROPONIN-resolved ATRIAL FIBRILLATION-rate well controlled, on long-term oral anticoagulation with Xarelto -Continue oral anticoagulation MAINTENANCE ISSUES -DVT prophylaxis; current therapy with Xarelto should provide adequate DVT prophylaxis -GI prophylaxis; not indicated -Villeda catheter; not indicated -Nutrition; regular diet -Nicotine dependence; not required CODE STATUS-FULL CODE ADMISSION STATUS-patient will be admitted to inpatient status, expect at least a 2 night hospital stay for evaluation and management of problems as outlined above. At the time of this admission I do not reasonably expected evaluation and management of this problem will require more than a 96 hour hospital stay. DISPOSITION-anticipate discharge to home after the hospital stay. PRIMARY CARE PROVIDER-
[2018-05-26] MEDS: Acetaminophen 325 MG Tab PO PRN (02:43)
[2018-05-26] MEDS: Acetaminophen/HYDROcodone 325-5 MG Tab PO PRN ×5 (02:43→21:03)
[2018-05-26] MEDS: Ampicillin 2 GM in Sodium Chloride 0.9% 100 ML IV SCH ×4 (04:36→21:09)
[2018-05-26] MEDS: Albuterol/Ipratropium 3.0-0.5 MG/3 ML Neb Soln NEB SCH ×4 (07:10→21:03)
[2018-05-26] MEDS: Ferrous Sulfate 325 MG Tab PO SCH ×2 (07:39→16:20)
[2018-05-26] MEDS: Rivaroxaban 15 MG Tab PO SCH (07:40)
[2018-05-26] MEDS: Lactobacillus Rhamnosus GG (Probiotic) Cap PO SCH ×2 (09:24→20:57)
[2018-05-26] MEDS: Hydroxychloroquine 200 MG Tab PO SCH (09:24)
[2018-05-26] MEDS: Furosemide 40 MG Tab PO SCH (09:25)
[2018-05-26] MEDS: Magnesium Oxide 400 MG Tab PO SCH ×3 (09:25→20:57)
[2018-05-26] MEDS: Gabapentin 400 MG Cap PO SCH ×2 (09:26→20:58)
[2018-05-26] MEDS: amLODIPine 10 MG Tab PO SCH (09:26)
[2018-05-26] MEDS: Losartan 50 MG Tab PO SCH (09:27)
[2018-05-26] MEDS: cycloSPORINE Ophth Drops U/D Box of 30 EYEBOTH SCH ×2 (09:29→20:58)
[2018-05-26] MEDS ORDERED: Potassium Chloride 20 MEQ Tab.ER PO ONE ×2 (09:30→16:51)
[2018-05-26] MEDS ORDERED: HYDROmorphone 0.5 MG/0.5 ML Syringe IVPUSH ONE (12:00)
--- NOTE | 2018-05-26 16:57 | PCM.PN ---
- General Info Date of Service: 05/26/18 Subjective Update: Ms. Obrien has continued to show slow improvement, recurrent temperature elevation yesterday but fever curve does seem to be slowly decreasing. Vital signs have otherwise been stable, she reports less shortness of breath. Remains very weak and requires assistance of 2 for transfers and ambulation. Functional Status: Reports: Tolerating Diet, Urinating - Review of Systems General: Reports: Fever, Weakness, Chills Pulmonary: Reports: Shortness of Breath, Cough. Denies: Sputum, Hemoptysis, Wheezing Cardiovascular: Reports: Dyspnea on Exertion. Denies: Chest Pain, Palpitations , Orthopnea, PND, Edema Gastrointestinal: Reports: No Symptoms - Patient Data Vitals - Most Recent: Last Vital Signs Temp 99.9 F 05/26/18 15:54 Pulse 88 05/26/18 15:54 Resp 16 05/26/18 15:54 BP 135/39 L 05/26/18 15:54 Pulse Ox 95 05/26/18 15:54 Weight - Most Recent: 179 lb 6.4 oz I&O - Last 24 Hours: Intake & Output 05/26/18 05/26/18 05/26/18 06:59 14:59 22:59 Intake Total 300 Output Total 700 300 Balance -400 -300 Lab Results Last 24 Hours: Laboratory Results - last 24 hr 05/26/18 05/26/18 Range/Units 04:45 04:50 WBC 9.9 (4.5-11.0) K/uL RBC 3.14 L (3.30-5.50) M/uL Hgb 8.1 L (12.0-15.0) g/dL Hct 27.9 L (36.0-48.0) % MCV 89 (80-98) fL MCH 26 L (27-31) pg MCHC 29 L (32-36) % Plt Count 84 L (150-400) K/uL Neut % (Auto) 92 H (36-66) % Lymph % (Auto) 3 L (24-44) % [place] % (Auto) 5 (2-6) % Eos % (Auto) 0 L (2-4) % Baso % (Auto) 0 (0-1) % Sodium 144 (140-148) mmol/L Potassium 3.2 L (3.6-5.2) mmol/L Chloride 111 H (100-108) mmol/L Carbon Dioxide 27 (21-32) mmol/L Anion Gap 9.2 (5.0-14.0) mmol/L BUN 24 H (7-18) mg/dL Creatinine 0.8 (0.6-1.0) mg/dL Est Cr Clr Drug Dosing 50.57 mL/min Estimated GFR (MDRD) > 60 (>60) Glucose 99 (74-106) mg/dL Calcium 7.9 L (8.5-10.1) mg/dL [place] Results Last 24 Hours: Microbiology 05/23/18 17:07 Gram Stain - Final Sputum - Expectorated Respiratory Culture - Final Streptococcus Group A Med Orders - Current: Current Medications Acetaminophen (Tylenol) 650 mg PO Q4H PRN PRN Reason: Pain (Mild 1-3)/fever Last Admin: 05/26/18 02:43 Dose: 325 mg Hydrocodone Bitart/Acetaminophen ([place] 325-5 Mg) 2 tab PO Q4H PRN PRN Reason: Pain (moderate 4-6) Last Admin: 05/26/18 16:21 Dose: 2 tab Albuterol (Proventil Neb Soln) 2.5 mg INH Q4H PRN PRN Reason: wheezing Last Admin: 05/24/18 03:28 Dose: 2.5 mg Albuterol/Ipratropium (Duoneb 3.0-0.5 Mg/3 Ml) 3 ml NEB QIDRT [facility] Last Admin: 05/26/18 14:35 Dose: 3 ml Amlodipine Besylate (Norvasc) 10 mg PO DAILY [facility] Last Admin: 05/26/18 09:26 Dose: 10 mg Cyclosporine (Restasis) 0 each EYEBOTH BID [facility] Last Admin: 05/26/18 09:29 Dose: 1 drop Diphenoxylate HCl/Atropine (Lomotil 0.025-2.5 Mg) 1 tab PO QID PRN PRN Reason: Diarrhea Ferrous Sulfate (Ferrous Sulfate) 325 mg PO BIDMEALS [facility] Last Admin: 05/26/18 16:20 Dose: 325 mg Furosemide (Lasix) 40 mg PO DAILY [facility] Last Admin: 05/26/18 09:25 Dose: 40 mg Gabapentin (Neurontin) 800 mg PO BID [facility] Last Admin: 05/26/18 09:26 Dose: 800 mg Hydroxychloroquine Sulfate (Plaquenil) 400 mg PO DAILY [facility] Last Admin: 05/26/18 09:24 Dose: 400 mg Ampicillin Sodium 2 gm/ Sodium (Chloride) 100 mls @ 200 mls/hr IV Q6H [facility] Last Admin: 05/26/18 16:20 Dose: 200 mls/hr Lactobacillus Rhamnosus (Culturelle) 1 cap PO BID [facility] Last Admin: 05/26/18 09:24 Dose: 1 cap Losartan Potassium (Cozaar) 100 mg PO DAILY [facility] Last Admin: 05/26/18 09:27 Dose: 100 mg Magnesium Oxide (Magnesium Oxide) 400 mg PO TID [facility] Last Admin: 05/26/18 13:46 Dose: 400 mg Ondansetron HCl (Zofran) 4 mg IV Q4H PRN PRN Reason: Nausea/Vomiting Potassium Chloride (Klor-Con M20) 40 meq PO ONETIME ONE Stop: 05/26/18 16:52 Rivaroxaban (Xarelto) 15 mg PO DAILY@0800 [facility] Last Admin: 05/26/18 07:40 Dose: 15 mg Senna/Docusate Sodium (Senna Plus) 1 tab PO BID PRN PRN Reason: Constipation Sodium Chloride (Saline Flush) 10 ml FLUSH ASDIRECTED PRN PRN Reason: Keep Vein Open Discontinued Medications Hydrocodone Bitart/Acetaminophen ([place] 325-5 Mg) 1 tab PO Q4H PRN PRN Reason: Pain (moderate 4-6) Last Admin: 05/26/18 11:43 Dose: 1 tab Gabapentin (Neurontin) 1,200 mg PO QPM [facility] Last Admin: 05/23/18 16:58 Dose: 1,200 mg Gabapentin (Neurontin) 600 mg PO BID [facility] Last Admin: 05/24/18 08:45 Dose: 600 mg Hydromorphone HCl (Dilaudid) 1 mg IVPUSH ONETIME ONE Stop: 05/23/18 07:50 Last Admin: 05/23/18 08:03 Dose: 1 mg Hydromorphone HCl (Dilaudid) 0.5 mg IVPUSH ONETIME ONE Stop: 05/26/18 12:01 Last Admin: 05/26/18 12:06 Dose: 0.5 mg Lactated Ringer's (Ringers, Lactated) 1,000 mls @ 999 mls/hr IV ASDIRECTED [facility] Last Admin: 05/23/18 08:03 Dose: 999 mls/hr Levofloxacin/Dextrose 500 mg/ (Premix) 100 mls @ 100 mls/hr IV ONETIME ONE Stop: 05/23/18 10:21 Last Admin: 05/23/18 09:33 Dose: 100 mls/hr Lactated Ringer's (Ringers, Lactated) 1,000 mls @ 500 mls/hr IV BOLUS ONE Stop: 05/23/18 11:27 Last Admin: 05/23/18 09:32 Dose: 500 mls/hr Sodium Chloride (Normal Saline) 90 mls @ 4 mls/sec IV ASDIRECTED [facility] Last Admin: 05/23/18 10:36 Dose: 4 mls/sec Azithromycin 500 mg/ Sodium (Chloride) 250 mls @ 250 mls/hr IV ONETIME ONE Stop: 05/23/18 13:00 Last Admin: 05/23/18 12:16 Dose: 250 mls/hr Azithromycin 500 mg/ Sodium (Chloride) 250 mls @ 250 mls/hr IV Q24H [facility] Last Admin: 05/24/18 11:49 Dose: 250 mls/hr Ceftriaxone Sodium 1 gm/ (Sodium Chloride) 50 mls @ 100 mls/hr IV Q24H [facility] Last Admin: 05/24/18 13:19 Dose: 100 mls/hr Lactated Ringer's (Ringers, Lactated) 1,000 mls @ 75 mls/hr IV ASDIRECTED [facility] Last Admin: 05/24/18 22:22 Dose: 75 mls/hr Vancomycin HCl 1 gm/ Sodium (Chloride) 250 mls @ 165 mls/hr IV Q12H [facility] Last Admin: 05/24/18 05:49 Dose: 165 mls/hr Vancomycin HCl 1 gm/ Sodium (Chloride) 250 mls @ 165 mls/hr IV Q24H [facility] Magnesium Sulfate 2 gm/ Premix 50 mls @ 25 mls/hr IV Q6H [facility] Stop: 05/24/18 16:59 Last Admin: 05/24/18 15:04 Dose: 25 mls/hr Sodium Chloride (Normal Saline) 500 mls @ 500 mls/hr IV .BOLUS ONE Stop: 05/24/18 10:30 Last Admin: 05/24/18 09:51 Dose: 500 mls/hr Ibuprofen (Motrin) 600 mg PO ONETIME ONE Stop: 05/23/18 09:20 Last Admin: 05/23/18 09:26 Dose: 600 mg Ibuprofen (Motrin) 600 mg PO ONETIME ONE Stop: 05/24/18 04:01 Last Admin: 05/24/18 04:18 Dose: 600 mg Iopamidol (Isovue-370 (76%)) 100 ml IV . DIRECTED [facility] Last Admin: 05/23/18 10:36 Dose: 100 ml Lorazepam (Ativan) 0.5 mg IVPUSH ONETIME ONE Stop: 05/23/18 10:03 Last Admin: 05/23/18 10:08 Dose: 0.5 mg Magnesium Oxide (Magnesium Oxide) 400 mg PO BID [facility] Last Admin: 05/24/18 09:32 Dose: Not Given Potassium Chloride (Klor-Con M20) 40 meq PO ONETIME ONE Stop: 05/26/18 09:31 Last Admin: 05/26/18 09:26 Dose: 40 meq Rivaroxaban (Xarelto) 20 mg PO DAILY [facility] Last Admin: 05/25/18 08:07 Dose: 20 mg Vancomycin HCl (Vancomycin) 1 gm IV .PHARMACY TO DOSE [facility] Vancomycin HCl (Vancomycin) 0 gm IV .PHARMACY TO DOSE [facility] - Exam Quality Assessment: Supplemental Oxygen, DVT Prophylaxis General: Alert, Oriented, Cooperative, Mild Distress Lungs: Normal Respiratory Effort, Decreased Breath Sounds, Rales, Rhonchi, Wheezing. No: Crackles, Rub, Stridor Cardiovascular: Regular Rate, No Murmurs, Irregular Rhythm GI/Abdominal Exam: Soft, Non-Tender, No Organomegaly, No Distention Extremities: Non-Tender, No Pedal Edema - Problem List Review Problem List Initiated/Reviewed/Updated: Yes - My Orders Last 24 Hours: My Active Orders 05/26/18 08:00 Rivaroxaban [Xarelto] 15 mg PO DAILY@0800 05/26/18 11:39 Acetaminophen/HYDROcodone [[place] 325-5 MG] 2 tab PO Q4H PRN 05/26/18 16:51 Potassium Chloride [Klor-Con M20] 40 meq PO ONETIME ONE 05/27/18 05:00 BASIC METABOLIC PANEL,BMP [CHEM] Timed CBC WITH AUTO DIFF [HEME] Timed - Plan Plan:: ASSESSMENT AND PLAN BIBASILAR [id number] and associated with hypoxia. Blood and sputum cultures positive for strep group A -Saline lock IV -Nebulizer therapy with albuterol and duo nebs -IV ampicillin HYPOXIA-secondary to pneumonia and underlying COPD -Supplemental oxygen as needed COPD -Management as above RECENT COLITIS-resolved, currently denies abdominal pain, hematochezia CHRONIC KIDNEY DISEASE STAGE III-renal function has remained stable thus far -Closely monitor urine output and renal function ELEVATED TROPONIN-resolved ATRIAL FIBRILLATION-rate well controlled, on long-term oral anticoagulation with Xarelto -Continue oral anticoagulation MAINTENANCE ISSUES -DVT prophylaxis; current therapy with Xarelto should provide adequate DVT prophylaxis -GI prophylaxis; not indicated -Villeda catheter; not indicated -Nutrition; regular diet -Nicotine dependence; not required CODE STATUS-FULL CODE ADMISSION STATUS-patient will be admitted to inpatient status, expect at least a 2 night hospital stay for evaluation and management of problems as outlined above. At the time of this admission I do not reasonably expected evaluation and management of this problem will require more than a 96 hour hospital stay. DISPOSITION-anticipate discharge to home after the hospital stay. PRIMARY CARE PROVIDER-
[2018-05-27] MEDS: Acetaminophen/HYDROcodone 325-5 MG Tab PO PRN ×5 (03:53→20:13)
[2018-05-27] MEDS: Ampicillin 2 GM in Sodium Chloride 0.9% 100 ML IV SCH ×2 (03:54→11:39)
[2018-05-27] MEDS ORDERED: HYDROmorphone 0.5 MG/0.5 ML Syringe IVPUSH ONE (06:13)
[2018-05-27] MEDS: Albuterol/Ipratropium 3.0-0.5 MG/3 ML Neb Soln NEB SCH ×4 (07:06→20:15)
[2018-05-27] MEDS: Rivaroxaban 15 MG Tab PO SCH (07:55)
[2018-05-27] MEDS: Ferrous Sulfate 325 MG Tab PO SCH ×2 (07:55→16:28)
[2018-05-27] MEDS: cycloSPORINE Ophth Drops U/D Box of 30 EYEBOTH SCH ×2 (09:42→20:15)
[2018-05-27] MEDS: Lactobacillus Rhamnosus GG (Probiotic) Cap PO SCH ×2 (09:43→20:16)
[2018-05-27] MEDS: Gabapentin 400 MG Cap PO SCH ×2 (09:43→20:16)
[2018-05-27] MEDS: amLODIPine 10 MG Tab PO SCH (09:44)
[2018-05-27] MEDS: Furosemide 40 MG Tab PO SCH (09:44)
[2018-05-27] MEDS: Hydroxychloroquine 200 MG Tab PO SCH (09:44)
[2018-05-27] MEDS: Magnesium Oxide 400 MG Tab PO SCH ×3 (09:44→20:16)
[2018-05-27] MEDS: Losartan 50 MG Tab PO SCH (09:45)
[2018-05-27] MEDS ORDERED: Potassium Chloride 20 MEQ Tab.ER PO ONE (11:33)
[2018-05-27] MEDS ORDERED: Furosemide 40 MG/4 ML VIAL IVPUSH ONE (11:33)
--- NOTE | 2018-05-27 11:35 | PCM.PN ---
- General Info Date of Service: 05/27/18 - Patient Data Vitals - Most Recent: Last Vital Signs Temp 98.1 F 05/27/18 07:47 Pulse 86 05/27/18 10:44 Resp 18 05/27/18 07:47 BP 156/51 H 05/27/18 09:45 Pulse Ox 85 L 05/27/18 10:44 Weight - Most Recent: 179 lb 6.4 oz I&O - Last 24 Hours: Intake & Output 05/26/18 05/27/18 05/27/18 21:59 06:59 14:59 Intake Total 240 Output Total 200 Balance 40 Lab Results Last 24 Hours: Laboratory Results - last 24 hr 05/27/18 05/27/18 Range/Units 05:09 05:09 WBC 7.2 (4.5-11.0) K/uL RBC 3.66 (3.30-5.50) M/uL Hgb 9.7 L (12.0-15.0) g/dL Hct 32.5 L (36.0-48.0) % MCV 89 (80-98) fL MCH 27 (27-31) pg MCHC 30 L (32-36) % Plt Count 102 L (150-400) K/uL Neut % (Auto) 80 H (36-66) % Lymph % (Auto) 10 L (24-44) % [place] % (Auto) 8 H (2-6) % Eos % (Auto) 1 L (2-4) % Baso % (Auto) 0 (0-1) % Sodium 146 (140-148) mmol/L Potassium 4.0 (3.6-5.2) mmol/L Chloride 109 H (100-108) mmol/L Carbon Dioxide 26 (21-32) mmol/L Anion Gap 15.0 H (5.0-14.0) mmol/L BUN 18 (7-18) mg/dL Creatinine 0.9 (0.6-1.0) mg/dL Est Cr Clr Drug Dosing 44.95 mL/min Estimated GFR (MDRD) > 60 (>60) Glucose 93 (74-106) mg/dL Calcium 8.7 (8.5-10.1) mg/dL [place] Results Last 24 Hours: Microbiology 05/23/18 17:07 Gram Stain - Final Sputum - Expectorated Respiratory Culture - Final Streptococcus Group A Med Orders - Current: Current Medications Acetaminophen (Tylenol) 650 mg PO Q4H PRN PRN Reason: Pain (Mild 1-3)/fever Last Admin: 05/26/18 02:43 Dose: 325 mg Hydrocodone Bitart/Acetaminophen ([place] 325-5 Mg) 2 tab PO Q4H PRN PRN Reason: Pain (moderate 4-6) Last Admin: 05/27/18 07:54 Dose: 2 tab Albuterol (Proventil Neb Soln) 2.5 mg INH Q4H PRN PRN Reason: wheezing Last Admin: 05/24/18 03:28 Dose: 2.5 mg Albuterol/Ipratropium (Duoneb 3.0-0.5 Mg/3 Ml) 3 ml NEB QIDRT [facility] Last Admin: 05/27/18 10:44 Dose: 3 ml Amlodipine Besylate (Norvasc) 10 mg PO DAILY [facility] Last Admin: 05/27/18 09:44 Dose: 10 mg Cyclosporine (Restasis) 0 each EYEBOTH BID [facility] Last Admin: 05/27/18 09:42 Dose: 1 drop Diphenoxylate HCl/Atropine (Lomotil 0.025-2.5 Mg) 1 tab PO QID PRN PRN Reason: Diarrhea Ferrous Sulfate (Ferrous Sulfate) 325 mg PO BIDMEALS [facility] Last Admin: 05/27/18 07:55 Dose: 325 mg Furosemide (Lasix) 40 mg PO DAILY [facility] Last Admin: 05/27/18 09:44 Dose: 40 mg Furosemide (Lasix) 20 mg IVPUSH ONETIME ONE Stop: 05/27/18 11:46 Gabapentin (Neurontin) 800 mg PO BID [facility] Last Admin: 05/27/18 09:43 Dose: 800 mg Hydroxychloroquine Sulfate (Plaquenil) 400 mg PO DAILY [facility] Last Admin: 05/27/18 09:44 Dose: 400 mg Ampicillin Sodium 2 gm/ Sodium (Chloride) 100 mls @ 200 mls/hr IV Q6H [facility] Last Admin: 05/27/18 03:54 Dose: 200 mls/hr Lactobacillus Rhamnosus (Culturelle) 1 cap PO BID [facility] Last Admin: 05/27/18 09:43 Dose: 1 cap Losartan Potassium (Cozaar) 100 mg PO DAILY [facility] Last Admin: 05/27/18 09:45 Dose: 100 mg Magnesium Oxide (Magnesium Oxide) 400 mg PO TID [facility] Last Admin: 05/27/18 09:44 Dose: 400 mg Ondansetron HCl (Zofran) 4 mg IV Q4H PRN PRN Reason: Nausea/Vomiting Rivaroxaban (Xarelto) 15 mg PO DAILY@0800 [facility] Last Admin: 05/27/18 07:55 Dose: 15 mg Senna/Docusate Sodium (Senna Plus) 1 tab PO BID PRN PRN Reason: Constipation Sodium Chloride (Saline Flush) 10 ml FLUSH ASDIRECTED PRN PRN Reason: Keep Vein Open Discontinued Medications Hydrocodone Bitart/Acetaminophen ([place] 325-5 Mg) 1 tab PO Q4H PRN PRN Reason: Pain (moderate 4-6) Last Admin: 05/26/18 11:43 Dose: 1 tab Gabapentin (Neurontin) 1,200 mg PO QPM [facility] Last Admin: 05/23/18 16:58 Dose: 1,200 mg Gabapentin (Neurontin) 600 mg PO BID [facility] Last Admin: 05/24/18 08:45 Dose: 600 mg Hydromorphone HCl (Dilaudid) 1 mg IVPUSH ONETIME ONE Stop: 05/23/18 07:50 Last Admin: 05/23/18 08:03 Dose: 1 mg Hydromorphone HCl (Dilaudid) 0.5 mg IVPUSH ONETIME ONE Stop: 05/26/18 12:01 Last Admin: 05/26/18 12:06 Dose: 0.5 mg Hydromorphone HCl (Dilaudid) 0.5 mg IVPUSH ONETIME ONE Stop: 05/27/18 06:14 Last Admin: 05/27/18 06:23 Dose: 0.5 mg Lactated Ringer's (Ringers, Lactated) 1,000 mls @ 999 mls/hr IV ASDIRECTED [facility] Last Admin: 05/23/18 08:03 Dose: 999 mls/hr Levofloxacin/Dextrose 500 mg/ (Premix) 100 mls @ 100 mls/hr IV ONETIME ONE Stop: 05/23/18 10:21 Last Admin: 05/23/18 09:33 Dose: 100 mls/hr Lactated Ringer's (Ringers, Lactated) 1,000 mls @ 500 mls/hr IV BOLUS ONE Stop: 05/23/18 11:27 Last Admin: 05/23/18 09:32 Dose: 500 mls/hr Sodium Chloride (Normal Saline) 90 mls @ 4 mls/sec IV ASDIRECTED [facility] Last Admin: 05/23/18 10:36 Dose: 4 mls/sec Azithromycin 500 mg/ Sodium (Chloride) 250 mls @ 250 mls/hr IV ONETIME ONE Stop: 05/23/18 13:00 Last Admin: 05/23/18 12:16 Dose: 250 mls/hr Azithromycin 500 mg/ Sodium (Chloride) 250 mls @ 250 mls/hr IV Q24H [facility] Last Admin: 05/24/18 11:49 Dose: 250 mls/hr Ceftriaxone Sodium 1 gm/ (Sodium Chloride) 50 mls @ 100 mls/hr IV Q24H [facility] Last Admin: 05/24/18 13:19 Dose: 100 mls/hr Lactated Ringer's (Ringers, Lactated) 1,000 mls @ 75 mls/hr IV ASDIRECTED [facility] Last Admin: 05/24/18 22:22 Dose: 75 mls/hr Vancomycin HCl 1 gm/ Sodium (Chloride) 250 mls @ 165 mls/hr IV Q12H [facility] Last Admin: 05/24/18 05:49 Dose: 165 mls/hr Vancomycin HCl 1 gm/ Sodium (Chloride) 250 mls @ 165 mls/hr IV Q24H [facility] Magnesium Sulfate 2 gm/ Premix 50 mls @ 25 mls/hr IV Q6H [facility] Stop: 05/24/18 16:59 Last Admin: 05/24/18 15:04 Dose: 25 mls/hr Sodium Chloride (Normal Saline) 500 mls @ 500 mls/hr IV .BOLUS ONE Stop: 05/24/18 10:30 Last Admin: 05/24/18 09:51 Dose: 500 mls/hr Ibuprofen (Motrin) 600 mg PO ONETIME ONE Stop: 05/23/18 09:20 Last Admin: 05/23/18 09:26 Dose: 600 mg Ibuprofen (Motrin) 600 mg PO ONETIME ONE Stop: 05/24/18 04:01 Last Admin: 05/24/18 04:18 Dose: 600 mg Iopamidol (Isovue-370 (76%)) 100 ml IV . DIRECTED [facility] Last Admin: 05/23/18 10:36 Dose: 100 ml Lorazepam (Ativan) 0.5 mg IVPUSH ONETIME ONE Stop: 05/23/18 10:03 Last Admin: 05/23/18 10:08 Dose: 0.5 mg Magnesium Oxide (Magnesium Oxide) 400 mg PO BID [facility] Last Admin: 05/24/18 09:32 Dose: Not Given Potassium Chloride (Klor-Con M20) 40 meq PO ONETIME ONE Stop: 05/26/18 09:31 Last Admin: 05/26/18 09:26 Dose: 40 meq Potassium Chloride (Klor-Con M20) 40 meq PO ONETIME ONE Stop: 05/26/18 16:52 Last Admin: 05/26/18 18:35 Dose: 40 meq Rivaroxaban (Xarelto) 20 mg PO DAILY [facility] Last Admin: 05/25/18 08:07 Dose: 20 mg Vancomycin HCl (Vancomycin) 1 gm IV .PHARMACY TO DOSE [facility] Vancomycin HCl (Vancomycin) 0 gm IV .PHARMACY TO DOSE [facility] - My Orders Last 24 Hours: My Active Orders 05/26/18 11:39 Acetaminophen/HYDROcodone [[place] 325-5 MG] 2 tab PO Q4H PRN 05/27/18 11:32 Furosemide [Lasix] 20 mg IVPUSH NOW ONE 05/27/18 11:33 Furosemide [Lasix] 40 mg IVPUSH NOW ONE Potassium Chloride [Klor-Con M20] 40 meq PO ONETIME ONE 05/27/18 11:45 Ampicillin [[place]] 500 mg PO Q6H - Plan Plan:: ASSESSMENT AND PLAN BIBASILAR [id number] and associated with hypoxia. Blood and sputum cultures positive for strep group A -Saline lock IV -Nebulizer therapy with albuterol and duo nebs -IV ampicillin HYPOXIA-secondary to pneumonia and underlying COPD -Supplemental oxygen as needed COPD -Management as above RECENT COLITIS-resolved, currently denies abdominal pain, hematochezia CHRONIC KIDNEY DISEASE STAGE III-renal function has remained stable thus far -Closely monitor urine output and renal function ELEVATED TROPONIN-resolved ATRIAL FIBRILLATION-rate well controlled, on long-term oral anticoagulation with Xarelto -Continue oral anticoagulation MAINTENANCE ISSUES -DVT prophylaxis; current therapy with Xarelto should provide adequate DVT prophylaxis -GI prophylaxis; not indicated -Villeda catheter; not indicated -Nutrition; regular diet -Nicotine dependence; not required CODE STATUS-FULL CODE ADMISSION STATUS-patient will be admitted to inpatient status, expect at least a 2 night hospital stay for evaluation and management of problems as outlined above. At the time of this admission I do not reasonably expected evaluation and management of this problem will require more than a 96 hour hospital stay. DISPOSITION-anticipate discharge to home after the hospital stay. PRIMARY CARE PROVIDER-
[2018-05-27] MEDS ORDERED: Furosemide 20 MG/2 ML VIAL IVPUSH ONE (11:45)
--- NOTE | 2018-05-27 11:52 | PCM.PN ---
- General Info Date of Service: 05/27/18 Subjective Update: Ms. Obrien has improved since yesterday with less shortness of breath. This morning was able to shower and walk short distances in the room. Continues to experience her chronic low back pain. Vital signs have been stable and she has been afebrile over the last 24 hours, white blood cell count is within normal range. Functional Status: Reports: Pain Controlled, Tolerating Diet, Ambulating, Urinating - Review of Systems General: Reports: Weakness. Denies: Fever, Chills Pulmonary: Reports: Shortness of Breath. Denies: Pleuritic Chest Pain, Cough, Sputum, Hemoptysis, Wheezing Cardiovascular: Reports: Dyspnea on Exertion, Edema. Denies: Chest Pain, Palpitations, Orthopnea, PND, Lightheadedness Gastrointestinal: Reports: No Symptoms - Patient Data Vitals - Most Recent: Last Vital Signs Temp 97.5 F 05/27/18 11:43 Pulse 76 05/27/18 11:43 Resp 20 05/27/18 11:43 BP 143/55 H 05/27/18 11:43 Pulse Ox 93 L 05/27/18 11:43 Weight - Most Recent: 179 lb 6.4 oz I&O - Last 24 Hours: Intake & Output 05/26/18 05/27/18 05/27/18 21:59 06:59 14:59 Intake Total 240 Output Total 200 Balance 40 Lab Results Last 24 Hours: Laboratory Results - last 24 hr 05/27/18 05/27/18 Range/Units 05:09 05:09 WBC 7.2 (4.5-11.0) K/uL RBC 3.66 (3.30-5.50) M/uL Hgb 9.7 L (12.0-15.0) g/dL Hct 32.5 L (36.0-48.0) % MCV 89 (80-98) fL MCH 27 (27-31) pg MCHC 30 L (32-36) % Plt Count 102 L (150-400) K/uL Neut % (Auto) 80 H (36-66) % Lymph % (Auto) 10 L (24-44) % [place] % (Auto) 8 H (2-6) % Eos % (Auto) 1 L (2-4) % Baso % (Auto) 0 (0-1) % Sodium 146 (140-148) mmol/L Potassium 4.0 (3.6-5.2) mmol/L Chloride 109 H (100-108) mmol/L Carbon Dioxide 26 (21-32) mmol/L Anion Gap 15.0 H (5.0-14.0) mmol/L BUN 18 (7-18) mg/dL Creatinine 0.9 (0.6-1.0) mg/dL Est Cr Clr Drug Dosing 44.95 mL/min Estimated GFR (MDRD) > 60 (>60) Glucose 93 (74-106) mg/dL Calcium 8.7 (8.5-10.1) mg/dL [place] Results Last 24 Hours: Microbiology 05/23/18 17:07 Gram Stain - Final Sputum - Expectorated Respiratory Culture - Final Streptococcus Group A Med Orders - Current: Current Medications Acetaminophen (Tylenol) 650 mg PO Q4H PRN PRN Reason: Pain (Mild 1-3)/fever Last Admin: 05/26/18 02:43 Dose: 325 mg Hydrocodone Bitart/Acetaminophen ([place] 325-5 Mg) 2 tab PO Q4H PRN PRN Reason: Pain (moderate 4-6) Last Admin: 05/27/18 07:54 Dose: 2 tab Albuterol (Proventil Neb Soln) 2.5 mg INH Q4H PRN PRN Reason: wheezing Last Admin: 05/24/18 03:28 Dose: 2.5 mg Albuterol/Ipratropium (Duoneb 3.0-0.5 Mg/3 Ml) 3 ml NEB QIDRT [facility] Last Admin: 05/27/18 10:44 Dose: 3 ml Amlodipine Besylate (Norvasc) 10 mg PO DAILY [facility] Last Admin: 05/27/18 09:44 Dose: 10 mg Ampicillin (Principen) 500 mg PO Q6H [facility] Cyclosporine (Restasis) 0 each EYEBOTH BID [facility] Last Admin: 05/27/18 09:42 Dose: 1 drop Diphenoxylate HCl/Atropine (Lomotil 0.025-2.5 Mg) 1 tab PO QID PRN PRN Reason: Diarrhea Ferrous Sulfate (Ferrous Sulfate) 325 mg PO BIDMEALS [facility] Last Admin: 05/27/18 07:55 Dose: 325 mg Furosemide (Lasix) 40 mg PO DAILY [facility] Last Admin: 05/27/18 09:44 Dose: 40 mg Gabapentin (Neurontin) 800 mg PO BID [facility] Last Admin: 05/27/18 09:43 Dose: 800 mg Hydroxychloroquine Sulfate (Plaquenil) 400 mg PO DAILY [facility] Last Admin: 05/27/18 09:44 Dose: 400 mg Lactobacillus Rhamnosus (Culturelle) 1 cap PO BID [facility] Last Admin: 05/27/18 09:43 Dose: 1 cap Losartan Potassium (Cozaar) 100 mg PO DAILY [facility] Last Admin: 05/27/18 09:45 Dose: 100 mg Magnesium Oxide (Magnesium Oxide) 400 mg PO TID [facility] Last Admin: 05/27/18 09:44 Dose: 400 mg Ondansetron HCl (Zofran) 4 mg IV Q4H PRN PRN Reason: Nausea/Vomiting Rivaroxaban (Xarelto) 15 mg PO DAILY@0800 [facility] Last Admin: 05/27/18 07:55 Dose: 15 mg Senna/Docusate Sodium (Senna Plus) 1 tab PO BID PRN PRN Reason: Constipation Sodium Chloride (Saline Flush) 10 ml FLUSH ASDIRECTED PRN PRN Reason: Keep Vein Open Discontinued Medications Hydrocodone Bitart/Acetaminophen ([place] 325-5 Mg) 1 tab PO Q4H PRN PRN Reason: Pain (moderate 4-6) Last Admin: 05/26/18 11:43 Dose: 1 tab Furosemide (Lasix) 20 mg IVPUSH ONETIME ONE Stop: 05/27/18 11:46 Furosemide (Lasix) 40 mg IVPUSH NOW ONE Stop: 05/27/18 11:34 Gabapentin (Neurontin) 1,200 mg PO QPM [facility] Last Admin: 05/23/18 16:58 Dose: 1,200 mg Gabapentin (Neurontin) 600 mg PO BID [facility] Last Admin: 05/24/18 08:45 Dose: 600 mg Hydromorphone HCl (Dilaudid) 1 mg IVPUSH ONETIME ONE Stop: 05/23/18 07:50 Last Admin: 05/23/18 08:03 Dose: 1 mg Hydromorphone HCl (Dilaudid) 0.5 mg IVPUSH ONETIME ONE Stop: 05/26/18 12:01 Last Admin: 05/26/18 12:06 Dose: 0.5 mg Hydromorphone HCl (Dilaudid) 0.5 mg IVPUSH ONETIME ONE Stop: 05/27/18 06:14 Last Admin: 05/27/18 06:23 Dose: 0.5 mg Lactated Ringer's (Ringers, Lactated) 1,000 mls @ 999 mls/hr IV ASDIRECTED [facility] Last Admin: 05/23/18 08:03 Dose: 999 mls/hr Levofloxacin/Dextrose 500 mg/ (Premix) 100 mls @ 100 mls/hr IV ONETIME ONE Stop: 05/23/18 10:21 Last Admin: 05/23/18 09:33 Dose: 100 mls/hr Lactated Ringer's (Ringers, Lactated) 1,000 mls @ 500 mls/hr IV BOLUS ONE Stop: 05/23/18 11:27 Last Admin: 05/23/18 09:32 Dose: 500 mls/hr Sodium Chloride (Normal Saline) 90 mls @ 4 mls/sec IV ASDIRECTED [facility] Last Admin: 05/23/18 10:36 Dose: 4 mls/sec Azithromycin 500 mg/ Sodium (Chloride) 250 mls @ 250 mls/hr IV ONETIME ONE Stop: 05/23/18 13:00 Last Admin: 05/23/18 12:16 Dose: 250 mls/hr Azithromycin 500 mg/ Sodium (Chloride) 250 mls @ 250 mls/hr IV Q24H [facility] Last Admin: 05/24/18 11:49 Dose: 250 mls/hr Ceftriaxone Sodium 1 gm/ (Sodium Chloride) 50 mls @ 100 mls/hr IV Q24H [facility] Last Admin: 05/24/18 13:19 Dose: 100 mls/hr Lactated Ringer's (Ringers, Lactated) 1,000 mls @ 75 mls/hr IV ASDIRECTED [facility] Last Admin: 05/24/18 22:22 Dose: 75 mls/hr Vancomycin HCl 1 gm/ Sodium (Chloride) 250 mls @ 165 mls/hr IV Q12H [facility] Last Admin: 05/24/18 05:49 Dose: 165 mls/hr Vancomycin HCl 1 gm/ Sodium (Chloride) 250 mls @ 165 mls/hr IV Q24H [facility] Magnesium Sulfate 2 gm/ Premix 50 mls @ 25 mls/hr IV Q6H [facility] Stop: 05/24/18 16:59 Last Admin: 05/24/18 15:04 Dose: 25 mls/hr Sodium Chloride (Normal Saline) 500 mls @ 500 mls/hr IV .BOLUS ONE Stop: 05/24/18 10:30 Last Admin: 05/24/18 09:51 Dose: 500 mls/hr Ampicillin Sodium 2 gm/ Sodium (Chloride) 100 mls @ 200 mls/hr IV Q6H [facility] Last Admin: 05/27/18 11:39 Dose: Not Given Ibuprofen (Motrin) 600 mg PO ONETIME ONE Stop: 05/23/18 09:20 Last Admin: 05/23/18 09:26 Dose: 600 mg Ibuprofen (Motrin) 600 mg PO ONETIME ONE Stop: 05/24/18 04:01 Last Admin: 05/24/18 04:18 Dose: 600 mg Iopamidol (Isovue-370 (76%)) 100 ml IV . DIRECTED [facility] Last Admin: 05/23/18 10:36 Dose: 100 ml Lorazepam (Ativan) 0.5 mg IVPUSH ONETIME ONE Stop: 05/23/18 10:03 Last Admin: 05/23/18 10:08 Dose: 0.5 mg Magnesium Oxide (Magnesium Oxide) 400 mg PO BID [facility] Last Admin: 05/24/18 09:32 Dose: Not Given Potassium Chloride (Klor-Con M20) 40 meq PO ONETIME ONE Stop: 05/26/18 09:31 Last Admin: 05/26/18 09:26 Dose: 40 meq Potassium Chloride (Klor-Con M20) 40 meq PO ONETIME ONE Stop: 05/26/18 16:52 Last Admin: 05/26/18 18:35 Dose: 40 meq Potassium Chloride (Klor-Con M20) 40 meq PO ONETIME ONE Stop: 05/27/18 11:34 Rivaroxaban (Xarelto) 20 mg PO DAILY [facility] Last Admin: 05/25/18 08:07 Dose: 20 mg Vancomycin HCl (Vancomycin) 1 gm IV .PHARMACY TO DOSE [facility] Vancomycin HCl (Vancomycin) 0 gm IV .PHARMACY TO DOSE [facility] - Exam Quality Assessment: Supplemental Oxygen, DVT Prophylaxis General: Alert, Oriented, Cooperative, Mild Distress Lungs: Normal Respiratory Effort, Decreased Breath Sounds. No: Rales, Rhonchi, Rub, Wheezing Cardiovascular: Regular Rate, No Murmurs, Irregular Rhythm GI/Abdominal Exam: Soft, Non-Tender, No Organomegaly, No Distention Extremities: Non-Tender, Pedal Edema - Problem List Review Problem List Initiated/Reviewed/Updated: Yes - My Orders Last 24 Hours: My Active Orders 05/26/18 11:39 Acetaminophen/HYDROcodone [[place] 325-5 MG] 2 tab PO Q4H PRN 05/27/18 12:00 Ampicillin [Princ[place]] 500 mg PO Q6H - Plan Plan:: ASSESSMENT AND PLAN BIBASILAR [id number] and associated with hypoxia. Blood and sputum cultures positive for strep group A. Improved over the past 24 hours with less shortness of breath. Appetite somewhat better and she is been able to ambulate short distances -Saline lock IV -Nebulizer therapy with albuterol and duo nebs -Discontinue IV ampicillin -Ampicillin 500 mg by mouth 4 times a day HYPOXIA-secondary to pneumonia and underlying COPD -Supplemental oxygen as needed COPD -Management as above RECENT COLITIS-resolved, currently denies abdominal pain, hematochezia CHRONIC KIDNEY DISEASE STAGE III-renal function has remained stable thus far -Closely monitor urine output and renal function ELEVATED TROPONIN-resolved ATRIAL FIBRILLATION-rate well controlled, on long-term oral anticoagulation with Xarelto -Continue oral anticoagulation MAINTENANCE ISSUES -DVT prophylaxis; current therapy with Xarelto should provide adequate DVT prophylaxis -GI prophylaxis; not indicated -Villeda catheter; not indicated -Nutrition; regular diet -Nicotine dependence; not required CODE STATUS-FULL CODE ADMISSION STATUS-patient will be admitted to inpatient status, expect at least a 2 night hospital stay for evaluation and management of problems as outlined above. At the time of this admission I do not reasonably expected evaluation and management of this problem will require more than a 96 hour hospital stay. DISPOSITION-anticipate discharge to home after the hospital stay. PRIMARY CARE PROVIDER-
[2018-05-27] MEDS: Ampicillin 500 MG Cap PO SCH ×2 (11:54→17:35)
[2018-05-28] MEDS: Acetaminophen/HYDROcodone 325-5 MG Tab PO PRN ×3 (00:01→11:51)
[2018-05-28] MEDS: Ampicillin 500 MG Cap PO SCH ×3 (00:01→11:51)
[2018-05-28] MEDS: Albuterol/Ipratropium 3.0-0.5 MG/3 ML Neb Soln NEB SCH ×2 (07:18→10:31)
[2018-05-28] MEDS: Ferrous Sulfate 325 MG Tab PO SCH (07:59)
[2018-05-28] MEDS: Losartan 50 MG Tab PO SCH (07:59)
[2018-05-28] MEDS: Rivaroxaban 15 MG Tab PO SCH (07:59)
[2018-05-28] MEDS: Lactobacillus Rhamnosus GG (Probiotic) Cap PO SCH (08:00)
[2018-05-28] MEDS: Gabapentin 400 MG Cap PO SCH (08:00)
[2018-05-28] MEDS: Furosemide 40 MG Tab PO SCH (08:00)
[2018-05-28] MEDS: Magnesium Oxide 400 MG Tab PO SCH (08:00)
[2018-05-28] MEDS: cycloSPORINE Ophth Drops U/D Box of 30 EYEBOTH SCH (08:01)
[2018-05-28] MEDS: Hydroxychloroquine 200 MG Tab PO SCH (08:01)
[2018-05-28] MEDS: amLODIPine 10 MG Tab PO SCH (08:01)
--- NOTE | 2018-05-28 10:25 | PCM.DCSUM1 ---
Discharge Summary - Hospital Course Brief History: 73-year-old female with history of recent colitis, rheumatoid arthritis and oxygen-dependent COPD who presented with shortness of breath and back pain. She was admitted for management of bilateral pneumonia with acute on chronic hypoxic respiratory failure. Diagnosis: Stroke: No - Discharge Data Discharge Date: 05/28/18 Discharge Disposition: [place], [place] [address] Condition: Good - Discharge Diagnosis/Problem(s) (1) Community acquired pneumonia SNOMED Code(s): 167158996 ICD Code: J18.9 - PNEUMONIA, UNSPECIFIED ORGANISM Status: Acute Qualifiers: Laterality: unspecified laterality Qualified Code(s): J18.9 - Pneumonia, unspecified organism (2) COPD (chronic obstructive pulmonary disease) SNOMED Code(s): 16430514 ICD Code: J44.9 - CHRONIC OBSTRUCTIVE PULMONARY DISEASE, UNSPECIFIED Status : Chronic Priority: Low Qualifiers: COPD type: unspecified COPD Qualified Code(s): J44.9 - Chronic obstructive pulmonary disease, unspecified (3) Rheumatoid arthritis SNOMED Code(s): 20808159 ICD Code: M06.9 - RHEUMATOID ARTHRITIS, UNSPECIFIED Status: Chronic Qualifiers: Rheumatoid arthritis location: unspecified site Rheumatoid factor presence : unspecified presence Qualified Code(s): M06.9 - Rheumatoid arthritis, unspecified - Patient Summary/Data Consults: Consultations 05/23/18 13:02 PT Evaluation and Treatment [CONS] Routine Please Evaluate and Treat. PT Reason for Consult: Weakness This query below is only for informational purposes and is not editable. Hospital Course: Radha presented to the emergency room with left lower back pain and shortness of breath. Workup in the emergency room revealed significant fever and I lateral infiltrates consistent with pneumonia. She was started on antibiotic therapy and admitted to the hospital for further management. She was more hypoxic than at baseline and required additional supplemental oxygen. Cultures were obtained at the time of admission. Over the next couple of days she had slow but steady improvement. Oxygenation had been improving. She remained weak but otherwise was doing fairly well. Her blood and sputum cultures both returned growing group A strep. Once this was identified she was transitioned to ampicillin for antibiotic coverage. She has tolerated this well. She has made steady progress with regard to her respiratory status. She is back down her baseline amount of oxygen. She is still little bit weak but is strong enough to get around with a walker and standby assist. She has been working with physical therapy. I suspect that the lower back pain that was present on admission is related to a lumbar muscle spasm. There may be some contribution from her rheumatoid arthritis but there is no other evidence for flare of her disease at this time. She has improved enough that she is now safe for outpatient management. She will have 4 days of antibiotic therapy to complete after she gets out of the hospital. She is interested in home health care and a referral has been placed. She would benefit from early follow-up to ensure that her respiratory status remained stable and her back pain is improving. - Patient Instructions Diet: Usual Diet as Tolerated Activity: As Tolerated Showering/Bathing: May Shower Notify Provider of: Fever, Increased Pain, Nausea and/or Vomiting Other/Special Instructions: 1. You were in the hospital for management of bilateral community-acquired pneumonia caused by a group a streptococcus bacteria. I recommend ongoing antibiotic therapy with ampicillin. You should take 500 mg four times daily for 4 1/2 more days. Your next dose is due this afternoon. 2. Continue your other home medications as previously prescribed. 3. Follow up at the end of the week to check on your back pain and to make sure that you are continuing to improve from the pneumonia. 4. I have placed a referral to home health care to help ease your transition home. 5. Seek medical attention if you have fever greater than 101, severe shortness of breath or if you develop chest pain/pressure. - Discharge Plan *PRESCRIPTION DRUG MONITORING PROGRAM REVIEWED*: No *COPY OF PRESCRIPTION DRUG MONITORING REPORT IN PATIENT KELLY: No Prescriptions/Med Rec: Ampicillin [Principen] 500 mg PO QID #18 cap Home Medications: Home Meds Hydroxychloroquine Sulfate 400 mg PO DAILY 05/09/13 [History] cycloSPORINE [Restasis] 1 drop EYEBOTH BID 05/09/13 [History] Gabapentin [Neurontin] 600 mg PO BID 01/07/15 [History] Loratadine [Allergy Relief] 10 mg PO DAILY 01/07/15 [History] Losartan Potassium [Cozaar] 100 mg PO DAILY 01/07/15 [History] Albuterol [Proventil Neb Soln] 3 ml INH Q4H PRN 09/22/15 [History] Albuterol [Ventolin HFA] 2 puff INH Q6H PRN 09/22/15 [History] Calcium Citrate/Vitamin D3 [Calcium Citrate + D] 200 - 250 mg PO BID 09/22/15 [ History] Furosemide 40 mg PO DAILY 09/22/15 [History] Gabapentin [Neurontin] 1,200 mg PO QPM 01/05/16 [History] Magnesium Oxide 400 mg PO TID 05/17/16 [History] Naproxen 500 mg PO BID 05/17/16 [History] amLODIPine Besylate [Amlodipine Besylate] 10 mg PO DAILY 11/15/17 [History] Rivaroxaban [Xarelto] 20 mg PO DAILY 04/09/18 [History] Hydrocodone/Acetaminophen [Hydrocodon-Acetaminophen 5-325] 1 tab PO Q4HR PRN 01/05 [History] Ferrous Sulfate 325 mg PO BIDAC #60 tablet 05/14/18 [Rx] Ampicillin [Principen] 500 mg PO QID #18 cap 05/28/18 [Rx] Oxygen Therapy Mode: Nasal Cannula Oxygen Flow Rate (L/min): 2 (2-3 L/MIN) Patient Handouts: Back Pain, Adult, Community-Acquired Pneumonia, Adult, Easy- to-Read Referrals: Eren Koenig MD [Physician] - (Follow up appointment MondayJune 01 @ 11: [address] Owens at [facility].) - Discharge Summary/Plan Comment DC Time >30 min.: No - Patient Data Vitals - Most Recent: Last Vital Signs Temp 37.9 C 05/28/18 07:56 Pulse 97 05/28/18 07:56 Resp 16 05/28/18 07:56 BP 157/53 H 05/28/18 08:01 Pulse Ox 95 05/28/18 07:56 Weight - Most Recent: 78.744 kg I&O - Last 24 hours: Intake & Output 05/27/18 05/28/18 05/28/18 22:59 06:59 14:59 Intake Total 250 Output Total 1100 600 320 Balance -1100 -350 -320 Med Orders - Current: Current Medications Acetaminophen (Tylenol) 650 mg PO Q4H PRN PRN Reason: Pain (Mild 1-3)/fever Last Admin: 05/26/18 02:43 Dose: 325 mg Hydrocodone Bitart/Acetaminophen ([place] 325-5 Mg) 2 tab PO Q4H PRN PRN Reason: Pain (moderate 4-6) Last Admin: 05/28/18 04:03 Dose: 2 tab Albuterol (Proventil Neb Soln) 2.5 mg INH Q4H PRN PRN Reason: wheezing Last Admin: 05/24/18 03:28 Dose: 2.5 mg Albuterol/Ipratropium (Duoneb 3.0-0.5 Mg/3 Ml) 3 ml NEB QIDRT [facility] Last Admin: 05/28/18 07:18 Dose: 3 ml Amlodipine Besylate (Norvasc) 10 mg PO DAILY [facility] Last Admin: 05/28/18 08:01 Dose: 10 mg Ampicillin (Principen) 500 mg PO Q6H [facility] Last Admin: 05/28/18 06:56 Dose: 500 mg Cyclosporine (Restasis) 0 each EYEBOTH BID [facility] Last Admin: 05/28/18 08:01 Dose: 1 drop Diphenoxylate HCl/Atropine (Lomotil 0.025-2.5 Mg) 1 tab PO QID PRN PRN Reason: Diarrhea Ferrous Sulfate (Ferrous Sulfate) 325 mg PO BIDMEALS [facility] Last Admin: 05/28/18 07:59 Dose: 325 mg Furosemide (Lasix) 40 mg PO DAILY [facility] Last Admin: 05/28/18 08:00 Dose: 40 mg Gabapentin (Neurontin) 800 mg PO BID [facility] Last Admin: 05/28/18 08:00 Dose: 800 mg Hydroxychloroquine Sulfate (Plaquenil) 400 mg PO DAILY [facility] Last Admin: 05/28/18 08:01 Dose: 400 mg Lactobacillus Rhamnosus (Culturelle) 1 cap PO BID [facility] Last Admin: 05/28/18 08:00 Dose: 1 cap Losartan Potassium (Cozaar) 100 mg PO DAILY [facility] Last Admin: 05/28/18 07:59 Dose: 100 mg Magnesium Oxide (Magnesium Oxide) 400 mg PO TID [facility] Last Admin: 05/28/18 08:00 Dose: 400 mg Ondansetron HCl (Zofran) 4 mg IV Q4H PRN PRN Reason: Nausea/Vomiting Rivaroxaban (Xarelto) 15 mg PO DAILY@0800 [facility] Last Admin: 05/28/18 07:59 Dose: 15 mg Senna/Docusate Sodium (Senna Plus) 1 tab PO BID PRN PRN Reason: Constipation Sodium Chloride (Saline Flush) 10 ml FLUSH ASDIRECTED PRN PRN Reason: Keep Vein Open Discontinued Medications Hydrocodone Bitart/Acetaminophen ([place] 325-5 Mg) 1 tab PO Q4H PRN PRN Reason: Pain (moderate 4-6) Last Admin: 05/26/18 11:43 Dose: 1 tab Furosemide (Lasix) 20 mg IVPUSH ONETIME ONE Stop: 05/27/18 11:46 Furosemide (Lasix) 40 mg IVPUSH NOW ONE Stop: 05/27/18 11:34 Last Admin: 05/27/18 11:54 Dose: 40 mg Gabapentin (Neurontin) 1,200 mg PO QPM [facility] Last Admin: 05/23/18 16:58 Dose: 1,200 mg Gabapentin (Neurontin) 600 mg PO BID [facility] Last Admin: 05/24/18 08:45 Dose: 600 mg Hydromorphone HCl (Dilaudid) 1 mg IVPUSH ONETIME ONE Stop: 05/23/18 07:50 Last Admin: 05/23/18 08:03 Dose: 1 mg Hydromorphone HCl (Dilaudid) 0.5 mg IVPUSH ONETIME ONE Stop: 05/26/18 12:01 Last Admin: 05/26/18 12:06 Dose: 0.5 mg Hydromorphone HCl (Dilaudid) 0.5 mg IVPUSH ONETIME ONE Stop: 05/27/18 06:14 Last Admin: 05/27/18 06:23 Dose: 0.5 mg Lactated Ringer's (Ringers, Lactated) 1,000 mls @ 999 mls/hr IV ASDIRECTED [facility] Last Admin: 05/23/18 08:03 Dose: 999 mls/hr Levofloxacin/Dextrose 500 mg/ (Premix) 100 mls @ 100 mls/hr IV ONETIME ONE Stop: 05/23/18 10:21 Last Admin: 05/23/18 09:33 Dose: 100 mls/hr Lactated Ringer's (Ringers, Lactated) 1,000 mls @ 500 mls/hr IV BOLUS ONE Stop: 05/23/18 11:27 Last Admin: 05/23/18 09:32 Dose: 500 mls/hr Sodium Chloride (Normal Saline) 90 mls @ 4 mls/sec IV ASDIRECTED [facility] Last Admin: 05/23/18 10:36 Dose: 4 mls/sec Azithromycin 500 mg/ Sodium (Chloride) 250 mls @ 250 mls/hr IV ONETIME ONE Stop: 05/23/18 13:00 Last Admin: 05/23/18 12:16 Dose: 250 mls/hr Azithromycin 500 mg/ Sodium (Chloride) 250 mls @ 250 mls/hr IV Q24H [facility] Last Admin: 05/24/18 11:49 Dose: 250 mls/hr Ceftriaxone Sodium 1 gm/ (Sodium Chloride) 50 mls @ 100 mls/hr IV Q24H [facility] Last Admin: 05/24/18 13:19 Dose: 100 mls/hr Lactated Ringer's (Ringers, Lactated) 1,000 mls @ 75 mls/hr IV ASDIRECTED [facility] Last Admin: 05/24/18 22:22 Dose: 75 mls/hr Vancomycin HCl 1 gm/ Sodium (Chloride) 250 mls @ 165 mls/hr IV Q12H [facility] Last Admin: 05/24/18 05:49 Dose: 165 mls/hr Vancomycin HCl 1 gm/ Sodium (Chloride) 250 mls @ 165 mls/hr IV Q24H [facility] Magnesium Sulfate 2 gm/ Premix 50 mls @ 25 mls/hr IV Q6H [facility] Stop: 05/24/18 16:59 Last Admin: 05/24/18 15:04 Dose: 25 mls/hr Sodium Chloride (Normal Saline) 500 mls @ 500 mls/hr IV .BOLUS ONE Stop: 05/24/18 10:30 Last Admin: 05/24/18 09:51 Dose: 500 mls/hr Ampicillin Sodium 2 gm/ Sodium (Chloride) 100 mls @ 200 mls/hr IV Q6H [facility] Last Admin: 05/27/18 11:39 Dose: Not Given Ibuprofen (Motrin) 600 mg PO ONETIME ONE Stop: 05/23/18 09:20 Last Admin: 05/23/18 09:26 Dose: 600 mg Ibuprofen (Motrin) 600 mg PO ONETIME ONE Stop: 05/24/18 04:01 Last Admin: 05/24/18 04:18 Dose: 600 mg Iopamidol (Isovue-370 (76%)) 100 ml IV . DIRECTED [facility] Last Admin: 05/23/18 10:36 Dose: 100 ml Lorazepam (Ativan) 0.5 mg IVPUSH ONETIME ONE Stop: 05/23/18 10:03 Last Admin: 05/23/18 10:08 Dose: 0.5 mg Magnesium Oxide (Magnesium Oxide) 400 mg PO BID [facility] Last Admin: 05/24/18 09:32 Dose: Not Given Potassium Chloride (Klor-Con M20) 40 meq PO ONETIME ONE Stop: 05/26/18 09:31 Last Admin: 05/26/18 09:26 Dose: 40 meq Potassium Chloride (Klor-Con M20) 40 meq PO ONETIME ONE Stop: 05/26/18 16:52 Last Admin: 05/26/18 18:35 Dose: 40 meq Potassium Chloride (Klor-Con M20) 40 meq PO ONETIME ONE Stop: 05/27/18 11:34 Last Admin: 05/27/18 11:55 Dose: 40 meq Rivaroxaban (Xarelto) 20 mg PO DAILY [facility] Last Admin: 05/25/18 08:07 Dose: 20 mg Vancomycin HCl (Vancomycin) 1 gm IV .PHARMACY TO DOSE [facility] Vancomycin HCl (Vancomycin) 0 gm IV .PHARMACY TO DOSE [facility] - Exam Quality Assessment: Reports: Supplemental Oxygen General: Reports: Alert, Oriented, Cooperative, No Acute Distress Lungs: Reports: Normal Respiratory Effort GI/Abdominal Exam: No Distention Psy/Mental Status: Reports: Alert, Normal Affect *Q Meaningful Use (DIS) - VTE *Q VTE Pharmacological Contraindications *Q: High INR Value
[2018-05-28 11:22] VITALS: BP 155/57
== END 2018-05-28 14:19 | disposition home health service (06) | DRG 194 ==
LOC: JP.ED 07:08 → JP.2SS 12:37
PROVIDERS: ADMIT Hospitalist; ATTEND Internal Medicine
DX: J18.9 Pneumonia, unspecified organism (principal); J15.4 Pneumonia due to other streptococci; J44.0 Chronic obstructive pulmonary disease with (acute) lower respiratory infection; R09.02 Hypoxemia; I12.9 Hypertensive chronic kidney disease with stage 1 through stage 4 chronic kidney disease, or unspecified chronic kidney disease; N18.3 Chronic kidney disease, stage 3 (moderate); E11.22 Type 2 diabetes mellitus with diabetic chronic kidney disease; E11.42 Type 2 diabetes mellitus with diabetic polyneuropathy; I25.10 Atherosclerotic heart disease of native coronary artery without angina pectoris; Z87.311 Personal history of (healed) other pathological fracture; I48.91 Unspecified atrial fibrillation; R74.8 Abnormal levels of other serum enzymes; M06.9 Rheumatoid arthritis, unspecified; Z79.01 Long term (current) use of anticoagulants; D50.0 Iron deficiency anemia secondary to blood loss (chronic); R50.9 Fever, unspecified; E78.00 Pure hypercholesterolemia, unspecified; I45.10 Unspecified right bundle-branch block; I27.20 Pulmonary hypertension, unspecified; M54.9 Dorsalgia, unspecified; G89.29 Other chronic pain; H54.7 Unspecified visual loss; H40.9 Unspecified glaucoma; H04.123 Dry eye syndrome of bilateral lacrimal glands; E66.9 Obesity, unspecified; Z68.31 Body mass index [BMI] 31.0-31.9, adult; Z88.8 Allergy status to other drugs, medicaments and biological substances; Z79.899 Other long term (current) drug therapy
CPT/HCPCS: 36415; 36600; 71045; 71275; 80053; 81001; 82803; 83605; 84484; 85025; 85379; 86140; 87040 ×2; 87077 ×2; 87804 ×2; 96361; 96365; 96367; 96375; 99285; A9270; J0456; J1170; J1956; J2060; J7030; J7050; J7120 ×2; Q9967; 80048; 83735; 87070; 87205; 94640; 94762; 97110-GP; 97162-GP; 97530-GP; J0290; J0696; J1940; J3370; J3475; J7040; J7620-GY

== ENCOUNTER 2018-12-07 15:50 | Emergency (ER) | payer MEDICARE ==
[2018-12-07 17:24] VITALS: BP 140/36
[2018-12-07 17:29] VITALS: PULSE 87
[2018-12-07] MEDS ORDERED: methylPREDNISolone Sodium Succinate 125 MG/2 ML SDV IVPUSH ONE (18:44)
--- NOTE | 2018-12-07 18:52 | EDM.PDOC ---
ED HPI GENERAL MEDICAL PROBLEM - General Chief Complaint: Lower Extremity Injury/Pain Stated Complaint: PAIN IN FOOT AND SWELLING IN LEGS Time Seen by Provider: 12/07/18 18:10 Source of Information: Reports: Patient History Limitations: Reports: No Limitations - History of Present Illness INITIAL COMMENTS - FREE TEXT/NARRATIVE: 73-year-old female in with chronic leg pain and generalized malaise. She's been struggling with peripheral edema and chronic ulcerations of the lower extremities. She was seen in the clinic 4 days ago, showed some renal insufficiency that was felt was worsened by her Lasix so that was cut in half, and she was placed in unna boots. Since that time she's had increased pain in her legs, increased edema in her thighs and lower abdomen. Her breathing is stable. Afebrile. She gets good relief from equip, but was told she can only take 1-1/2 pills at a time and she is wondering if she can increase this. Onset: Unknown/Unsure (Symptoms have been chronic, somewhat worse over the past 4 days) Location: Reports: Other (Lower extremities) Associated Symptoms: Reports: Weakness. Denies: Confusion, Chest Pain, Cough, Diaphoresis, Fever/Chills, Nausea/Vomiting, Shortness of Breath Bilateral Lower Leg Pain Score (Numeric/FACES): 7 - Related Data Allergies Allergy/AdvReac Type Severity Reaction Status Date / Time hydrochlorothiazide Allergy Other Verified 10/03/18 12:00 [From Dyazide] oxybutynin Allergy Other Verified 10/03/18 12:00 Vtwqqid-Vvb-Vab Reductase Allergy Other Verified 10/03/18 12:00 Inhibitor triamterene [From Dyazide] Allergy Other Verified 10/03/18 12:00 budesonide [From Symbicort] AdvReac Nausea and Verified 10/03/18 12:00 Vomiting formoterol fumarate AdvReac Nausea and Verified 10/03/18 12:00 [From Symbicort] Vomiting pregabalin [From Lyrica] AdvReac Headache Verified 10/03/18 12:00 tizanidine AdvReac Nausea Verified 10/03/18 12:00 Home Meds: Home Meds Hydroxychloroquine Sulfate 200 mg PO DAILY 05/09/13 [History] cycloSPORINE [Restasis] 1 drop EYEBOTH BID 05/09/13 [History] Loratadine [Allergy Relief] 10 mg PO DAILY 01/07/15 [History] Losartan Potassium [Cozaar] 100 mg PO DAILY 01/07/15 [History] Albuterol [Proventil Neb Soln] 3 ml INH Q4H PRN 09/22/15 [History] Albuterol [Ventolin HFA] 2 puff INH Q6H PRN 09/22/15 [History] Furosemide 20 mg PO DAILY 09/22/15 [History] Magnesium Oxide 400 mg PO TID 05/17/16 [History] amLODIPine Besylate [Amlodipine Besylate] 10 mg PO DAILY 11/15/17 [History] Rivaroxaban [Xarelto] 20 mg PO DAILY 04/09/18 [History] Ferrous Sulfate 325 mg PO BIDAC #60 tablet 05/14/18 [Rx] Alendronate Sodium [Fosamax] 70 mg PO Q7D 09/26/18 [History] Calcitonin ([place]) [Miacalcin Nasal [place]] 1 spray YASMINE DAILY 09/26/18 [History] Chlorthalidone 12.5 mg PO DAILY 09/26/18 [History] Diclofenac Sodium [Voltaren] 4 gm TOP QID 09/26/18 [History] Gabapentin [Neurontin] 100 mg PO BID 09/26/18 [History] Hydrocodone/Acetaminophen [[place] 7.5-325 Tablet] 1 tab PO Q8H PRN 09/26/18 [ History] Loperamide [Imodium AD] 2 mg PO BID PRN 09/26/18 [History] Triamcinolone Acetonide [Kenalog 0.1% Crm] 1 applic TOP TID PRN 09/26/18 [ History] rOPINIRole [Requip] 1.5 mg PO BEDTIME 09/26/18 [History] Past Medical History HEENT History: Reports: Glaucoma, Impaired Vision Other HEENT History: Otitis externa of right ear, bilateral dry eyes Cardiovascular History: Reports: CAD, Heart Murmur, High Cholesterol, Hypertension, SOB on Exertion Other Cardiovascular History: RBBB,ventricular diastolic dysfunction Respiratory History: Reports: Asthma, COPD, Other (See Below) Other Respiratory History: pulmonary hypertension. suppose to be on home O2 due to COPD, patient discontinued use and sent equipment with oxygen supplier. Patient normally on 2L continuous at home. Uses O2 at night. 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: Musculoskeletal History: Reports: Arthritis, Back Pain, Chronic, Fracture Other Musculoskeletal History: fx ankle Endocrine/Metabolic History: Reports: Diabetes, Type II, Obesity/BMI 30+, Osteoporosis Other Endocrine/Metabolic History: lupus Hematologic History: Reports: Anticoagulation Therapy Immunologic History: Reports: SLE Other Immunologic History: lupus anticoagulant positive Dermatologic History: Reports: Venous Stasis Dermatitis - Infectious Disease History Infectious Disease History: Reports: Chicken Pox - Past Surgical History Respiratory Surgical History: Reports: None Female Surgical History: Reports: Breast Biopsy Musculoskeletal Surgical History: Reports: Other (See Below) Other Musculoskeletal Surgeries/Procedures:: left ankle repair Dermatological Surgical History: Reports: Skin Biopsy Social & Family History - Tobacco Use Smoking Status *Q: Former Smoker Years of Tobacco use: 50 Used Tobacco, but Quit: Yes Month/Year Tobacco Last Used: 2001 - Caffeine Use Caffeine Use: Reports: Coffee Other Caffeine Use: 3 cups coffee daily, 1 can pop dailty - Recreational Drug Use Recreational Drug Use: No - Living Situation & Occupation Living situation: Reports: Single, Alone (lives alone in her home in [place], [place]., 2 children; son Palmer,who visits on weekends, Daughter two years ago of overdose. 3 grandchildren.) Review of Systems - Review of Systems Review Of Systems: See Below Constitutional: Denies: Fever Respiratory: Denies: Shortness of Breath Cardiovascular: Denies: Chest Pain GI/Abdominal: Reports: Other (No pain but she feels swollen in her lower abdomen ) Skin: Reports: Other ( chronic ulcerations of the lower extremities, not exposed at this time) Neurological: Reports: Weakness ED EXAM, GENERAL - Physical Exam Exam: See Below Exam Limited By: No Limitations General Appearance: Alert, No Apparent Distress Head: Atraumatic Respiratory/Chest: No Respiratory Distress, Lungs Clear Cardiovascular: Regular Rate, Rhythm GI/Abdominal: Other (Just a trace of edema across the suprapubic area, mildly tender) Extremities: Other (She does have pitting edema from the knees to the hips, and wound up boots were placed on both lower extremities from the knees to the distal feet. Toes are exposed, sensation is intact and there is no discoloration. Capillary refill is good.) Course - Vital Signs Last Recorded V/S: Last Vital Signs Temp 96.1 F 12/07/18 17:29 Pulse 87 12/07/18 17:29 Resp 20 12/07/18 17:29 BP 140/36 L 12/07/18 17:29 Pulse Ox 95 12/07/18 17:29 - Re-Assessments/Exams Free Text/Narrative Re-Assessment/Exam: 12/07/18 19:08 Reviewed her clinic visits thoroughly. I do think she has room to increase her Requip 2 mg twice daily, I also think she needs to increase her Lasix to previous doses. She can recheck her kidney function early next week, and can return to the emergency room if worsening despite medication changes. I do not want to remove the Unna boots at this time. Departure - Departure Time of Disposition: 19:11 Disposition: Home, Self-Care 01 Clinical Impression: Peripheral edema Chronic leg pain Qualifiers: Laterality: bilateral Qualified Code(s): M79.604 - Pain in right leg - Discharge Information Instructions: Edema Referrals: Eren Koenig MD [Primary Care Provider] - Forms: ED Department Discharge Care Plan Goals: Resume lasix to twice daily as before and ok to take 2 full pills of requip for your legs. Recheck next week in not improving or return sooner if worsening
== END 2018-12-07 19:14 | disposition home or self-care (01) ==
LOC: JP.ED 15:50
DX: R60.0 Localized edema (principal); I10 Essential (primary) hypertension; E11.21 Type 2 diabetes mellitus with diabetic nephropathy; E66.9 Obesity, unspecified; E78.00 Pure hypercholesterolemia, unspecified; Z88.8 Allergy status to other drugs, medicaments and biological substances; Z79.899 Other long term (current) drug therapy; Z87.891 Personal history of nicotine dependence; Z68.31 Body mass index [BMI] 31.0-31.9, adult
CPT/HCPCS: 99284

== ENCOUNTER 2018-12-24 09:18 | Emergency (ER) | payer MEDICARE ==
[2018-12-24 09:41] VITALS: BP 188/64; PULSE 84
[2018-12-24] MEDS ORDERED: Ketorolac 30 MG/ML SDV IM ONE (10:31)
--- NOTE | 2018-12-24 10:34 | EDM.PDOC ---
ED HPI GENERAL MEDICAL PROBLEM - General Chief Complaint: Lower Extremity Injury/Pain Stated Complaint: RIGHT HIP PAIN DIFFICULT TIME WALKING Time Seen by Provider: 12/24/18 10:21 Source of Information: Reports: Patient, RN Notes Reviewed History Limitations: Reports: No Limitations - History of Present Illness INITIAL COMMENTS - FREE TEXT/NARRATIVE: 73-year-old female presents emergency department today complaint of right hip pain she states she's had pain in the right hip over the last couple days she had tried oxycodone without much relief she does use a walker but the pain is so severe that she has difficulty raising her right foot she is specific about the pain and points to the greater trochanter Right Hip Pain Score (Numeric/FACES): 4 - Related Data Allergies Allergy/AdvReac Type Severity Reaction Status Date / Time hydrochlorothiazide Allergy Other Verified 12/24/18 09:46 [From Dyazide] oxybutynin Allergy Other Verified 12/24/18 09:46 Sizlyvc-Xsa-Fts Reductase Allergy Other Verified 12/24/18 09:46 Inhibitor triamterene [From Dyazide] Allergy Other Verified 12/24/18 09:46 budesonide [From Symbicort] AdvReac Nausea and Verified 12/24/18 09:46 Vomiting formoterol fumarate AdvReac Nausea and Verified 12/24/18 09:46 [From Symbicort] Vomiting pregabalin [From Lyrica] AdvReac Headache Verified 12/24/18 09:46 tizanidine AdvReac Nausea Verified 12/24/18 09:46 Home Meds: Home Meds Hydroxychloroquine Sulfate 200 mg PO DAILY 05/09/13 [History] cycloSPORINE [Restasis] 1 drop EYEBOTH BID 05/09/13 [History] Loratadine [Allergy Relief] 10 mg PO DAILY 01/07/15 [History] Losartan Potassium [Cozaar] 100 mg PO DAILY 01/07/15 [History] Albuterol [Proventil Neb Soln] 3 ml INH Q4H PRN 09/22/15 [History] Albuterol [Ventolin HFA] 2 puff INH Q6H PRN 09/22/15 [History] Furosemide 40 mg PO DAILY 09/22/15 [History] Magnesium Oxide 400 mg PO TID 05/17/16 [History] Rivaroxaban [Xarelto] 20 mg PO DAILY 04/09/18 [History] Chlorthalidone 12.5 mg PO DAILY 09/26/18 [History] Diclofenac Sodium [Voltaren] 4 gm TOP QID 09/26/18 [History] Gabapentin [Neurontin] 300 mg PO TID 09/26/18 [History] Loperamide [Imodium AD] 2 mg PO BID PRN 09/26/18 [History] Triamcinolone Acetonide [Kenalog 0.1% Crm] 1 applic TOP TID PRN 09/26/18 [ History] rOPINIRole [Requip] 2 mg PO BEDTIME 09/26/18 [History] Ferrous Sulfate 325 mg PO TIDAC 12/24/18 [History] oxyCODONE 1 tab PO BID PRN 12/24/18 [History] rOPINIRole [Requip] 1 mg PO DAILY 12/24/18 [History] Past Medical History HEENT History: Reports: Glaucoma, Impaired Vision Other HEENT History: Otitis externa of right ear, bilateral dry eyes Cardiovascular History: Reports: CAD, Heart Murmur, High Cholesterol, Hypertension, SOB on Exertion Other Cardiovascular History: RBBB,ventricular diastolic dysfunction Respiratory History: Reports: Asthma, COPD, Other (See Below) Other Respiratory History: pulmonary hypertension. Uses O2 at night. 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: Musculoskeletal History: Reports: Arthritis, Back Pain, Chronic, Fracture, Osteoporosis Other Musculoskeletal History: fx ankle Endocrine/Metabolic History: Reports: Diabetes, Type II, Obesity/BMI 30+, Osteoporosis Other Endocrine/Metabolic History: lupus Hematologic History: Reports: Anticoagulation Therapy Immunologic History: Reports: SLE Other Immunologic History: lupus anticoagulant positive Dermatologic History: Reports: Venous Stasis Dermatitis - Infectious Disease History Infectious Disease History: Reports: Chicken Pox - Past Surgical History Female Surgical History: Reports: Breast Biopsy Musculoskeletal Surgical History: Reports: Other (See Below) Other Musculoskeletal Surgeries/Procedures:: left ankle repair Dermatological Surgical History: Reports: Skin Biopsy Social & Family History - Tobacco Use Smoking Status *Q: Never Smoker - Caffeine Use Caffeine Use: Reports: Coffee Other Caffeine Use: 3 cups coffee daily, 1 can pop dailty - Recreational Drug Use Recreational Drug Use: No - Living Situation & Occupation Living situation: Reports: Single, Alone (lives alone in her home in [place], [place]., 2 children; son Palmer,who visits on weekends, Daughter two years ago of overdose. 3 grandchildren.) Review of Systems - Review of Systems Review Of Systems: See Below Musculoskeletal: Reports: Joint Pain (Right hip) ED EXAM, GENERAL - Physical Exam Exam: See Below Free Text/Narrative:: Examination of the right hip she is tender over the greater trochanter also tenderness with any flexion of the hip, did observe her walk she will rotate on her left hip and then plan the right hip take a step and then rotate again, no erythema or edema appreciated around the right hip Course - Vital Signs Last Recorded V/S: Last Vital Signs Temp 98.5 F 12/24/18 09:44 Pulse 84 12/24/18 09:44 Resp 22 H 12/24/18 09:44 BP 188/64 H 12/24/18 09:44 Pulse Ox 93 L 12/24/18 09:44 - Orders/Labs/Meds Meds: Medications Discontinued Medications Generic Name Dose Route Start Last Admin Trade Name Alex PRN Reason Stop Dose Admin Ketorolac Tromethamine 30 mg 12/24/18 10:31 12/24/18 11:33 Toradol IM 12/24/18 10:32 30 mg ONETIME ONE Administration Departure - Departure Time of Disposition: 12:20 Disposition: Home, Self-Care 01 Condition: Fair Clinical Impression: Right hip pain, Right hip pain - Discharge Information Referrals: Eren Koenig MD [Primary Care Provider] - Forms: ED Department Discharge Additional Instructions: Continue to use your Aleve as needed for pain control, keep your follow-up appointment with rheumatology on Monday - Assessment/Plan Plan: Assessment Acuity = acute Site and laterality = right hip pain Etiology = suspicious for greater trochanteric pain syndrome Manifestations = none Location of injury = Home Lab values = x-ray shows moderate amount of arthritis Plan , She got good relief from the Toradol injection plan is to 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
--- NOTE | 2018-12-24 12:08 | CR ---
Hip Min 2V or 3V Rt: 12/24/2018 10:40 AM INDICATION: Right hip pain COMPARISON: Pelvic CT performed 12/19/2013. FINDINGS/IMPRESSION: Moderate osteoarthritis of the right hip, right SI joint, and the pubic symphysis are present without apparent acute fracture or subluxation. If there is high clinical suspicion for occult, nondisplaced fracture further assessment with MRI could be considered.
== END 2018-12-24 12:35 | disposition home or self-care (01) ==
LOC: JP.ED 09:18
DX: M25.551 Pain in right hip (principal); I10 Essential (primary) hypertension; I25.10 Atherosclerotic heart disease of native coronary artery without angina pectoris; E66.9 Obesity, unspecified; J44.9 Chronic obstructive pulmonary disease, unspecified; E11.40 Type 2 diabetes mellitus with diabetic neuropathy, unspecified; Z88.8 Allergy status to other drugs, medicaments and biological substances; Z79.899 Other long term (current) drug therapy; Z79.01 Long term (current) use of anticoagulants
CPT/HCPCS: 73502; 96372; 99283; J1885

== ENCOUNTER 2019-02-13 06:00 | Inpatient (IN) | payer MEDICARE ==
[2019-02-13] MEDS ORDERED: Acetaminophen/HYDROcodone 325-5 MG Tab PO ONE ×3 (06:31→14:41)
--- NOTE | 2019-02-13 06:42 | EDM.PDOC ---
<Antwan Alexis - Last Filed: 02/13/19 06:32> ED HPI GENERAL MEDICAL PROBLEM - General Chief Complaint: Lower Extremity Injury/Pain Stated Complaint: MEDICAL VIA [facility] Time Seen by Provider: 02/13/19 06:20 Source of Information: Reports: Patient, Old Records, RN History Limitations: Reports: No Limitations - History of Present Illness INITIAL COMMENTS - FREE TEXT/NARRATIVE: 73 yo female presents via EMS from her apartment to to inability to walk today. She reports severe pain to the L hip and knee when she puts weight on that leg. She has had pain for about 6 mos in these areas and is prescribed [place] 1 tab as needed for this pain. Yesterday the pain was pretty bad, but even worse today. Has been seen in the clinic for this pain. 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: Reports: Other (see below) (none, last [place] 9 pm last night.) left hip/knee Pain Score (Numeric/FACES): 8 - Related Data Allergies Allergy/AdvReac Type Severity Reaction Status Date / Time hydrochlorothiazide Allergy Other Verified 02/13/19 06:06 [From Dyazide] oxybutynin Allergy Other Verified 02/13/19 06:06 Phzjili-Czn-Mlx Reductase Allergy Other Verified 02/13/19 06:06 Inhibitor triamterene [From Dyazide] Allergy Other Verified 02/13/19 06:06 budesonide [From Symbicort] AdvReac Nausea and Verified 02/13/19 06:06 Vomiting formoterol fumarate AdvReac Nausea and Verified 02/13/19 06:06 [From Symbicort] Vomiting pregabalin [From Lyrica] AdvReac Headache Verified 02/13/19 06:06 tizanidine AdvReac Nausea Verified 02/13/19 06:06 Home Meds: Home Meds Hydroxychloroquine Sulfate 200 mg PO DAILY 05/09/13 [History] cycloSPORINE [Restasis] 1 drop EYEBOTH BID 05/09/13 [History] Loratadine [Allergy Relief] 10 mg PO DAILY 01/07/15 [History] Losartan Potassium [Cozaar] 100 mg PO DAILY 01/07/15 [History] Albuterol [Proventil Neb Soln] 3 ml INH Q4H PRN 09/22/15 [History] Albuterol [Ventolin HFA] 2 puff INH Q6H PRN 09/22/15 [History] Furosemide 80 mg PO DAILY 09/22/15 [History] Magnesium Oxide 400 mg PO TID 05/17/16 [History] Chlorthalidone 25 mg PO DAILY 09/26/18 [History] Diclofenac Sodium [Voltaren] 4 gm TOP QID 09/26/18 [History] Gabapentin [Neurontin] 300 - 600 mg PO TID 09/26/18 [History] Loperamide [Imodium AD] 2 mg PO BID PRN 09/26/18 [History] Triamcinolone Acetonide [Kenalog 0.1% Crm] 1 applic TOP TID PRN 09/26/18 [ History] Ferrous Sulfate 325 mg PO TIDAC 12/24/18 [History] rOPINIRole [Requip] 1.5 mg PO BID 12/24/18 [History] Rivaroxaban [Xarelto] 15 mg PO DAILY 02/13/19 [History] Spironolactone [Aldactone] 25 mg PO DAILY 02/13/19 [History] traZODone HCl [Trazodone HCl] 50 mg PO BEDTIME 02/13/19 [History] Acetaminophen/HYDROcodone [[place] 325-5 MG] 1 tab PO Q4H PRN #20 tablet 02/16/19 [Rx] Alendronate Sodium [Fosamax] 70 mg PO WEEKLY #4 tablet 02/16/19 [Rx] Calcium Carbonate/Vitamin D3 [Caltrate 600+D 1500 MG-400 Units] 1 tab PO BID # 60 tablet 02/16/19 [Rx] Past Medical History HEENT History: Reports: Glaucoma, Impaired Vision Other HEENT History: Otitis externa of right ear, bilateral dry eyes Cardiovascular History: Reports: CAD, Heart Murmur, High Cholesterol, Hypertension, SOB on Exertion Other Cardiovascular History: RBBB,ventricular diastolic dysfunction Respiratory History: Reports: Asthma, COPD, Other (See Below) Other Respiratory History: pulmonary hypertension. Uses O2 at night. 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: Musculoskeletal History: Reports: Arthritis, Back Pain, Chronic, Fracture, Osteoporosis Other Musculoskeletal History: fx ankle Endocrine/Metabolic History: Reports: Diabetes, Type II, Obesity/BMI 30+, Osteoporosis Other Endocrine/Metabolic History: lupus Hematologic History: Reports: Anticoagulation Therapy Immunologic History: Reports: SLE Other Immunologic History: lupus anticoagulant positive Dermatologic History: Reports: Venous Stasis Dermatitis - Infectious Disease History Infectious Disease History: Reports: Chicken Pox - Past Surgical History Female Surgical History: Reports: Breast Biopsy Musculoskeletal Surgical History: Reports: Other (See Below) Other Musculoskeletal Surgeries/Procedures:: left ankle repair Dermatological Surgical History: Reports: Skin Biopsy Social & Family History - Tobacco Use Smoking Status *Q: Former Smoker Used Tobacco, but Quit: Yes Month/Year Tobacco Last Used: 2004 - Caffeine Use Caffeine Use: Reports: Coffee, Soda Other Caffeine Use: 3 cups coffee daily, 1 can pop dailty - Recreational Drug Use Recreational Drug Use: No - Living Situation & Occupation Living situation: Reports: Single, Alone (lives alone in her home in [place], [place]., 2 children; son Palmer,who visits on weekends, Daughter two years ago of overdose. 3 grandchildren.) Review of Systems - Review of Systems Review Of Systems: See Below Constitutional: Reports: No Symptoms Musculoskeletal: Reports: Joint Pain (L knee and L hip) Skin: Reports: No Symptoms Neurological: Reports: No Symptoms ED EXAM, GENERAL - Physical Exam Exam: See Below Exam Limited By: No Limitations General Appearance: Alert, WD/WN, No Apparent Distress Extremities: Joint Swelling (L knee looks slightly swollen, patient indicates this was worse in the past.), Limited Range of Motion (full knee and full L hip flexion not demonstrated, but can get L heel to within about 16 inches of her butt. ), Other (Has only minimal pain to the L knee and L hip with ROM testing while not bearing weight. ). No: Increased Warmth, Redness Neurological: Alert, Oriented, CN II-XII Intact, Normal Cognition, No Motor/ Sensory Deficits Skin Exam: Warm, Dry, Intact, Normal Color, No Rash Course - Vital Signs Last Recorded V/S: Last Vital Signs Temp 97.2 F 02/16/19 07:18 Pulse 75 02/16/19 07:18 Resp 16 02/16/19 07:18 BP 158/45 H 02/16/19 09:28 Pulse Ox 92 L 02/16/19 07:18 - Orders/Labs/Meds Labs: Laboratory Tests 02/14/19 02/14/19 02/14/19 Range/Units 05:33 05:33 05:33 WBC 4.5 (4.5-11.0) K/uL RBC 2.28 L (3.30-5.50) M/uL Hgb 6.7 L* D (12.0-15.0) g/dL Hct 22.9 L (36.0-48.0) % MCV 100 H (80-98) fL MCH 29 (27-31) pg MCHC 29 L (32-36) % Plt Count 144 L (150-400) K/uL Neut % (Auto) 69 H (36-66) % Lymph % (Auto) 19 L (24-44) % [place] % (Auto) 8 H (2-6) % Eos % (Auto) 4 (2-4) % Baso % (Auto) 0 (0-1) % Sodium 145 (140-148) mmol/L Potassium 4.8 (3.6-5.2) mmol/L Chloride 113 H (100-108) mmol/L Carbon Dioxide 23 (21-32) mmol/L Anion Gap 13.8 (5.0-14.0) mmol/L BUN 82 H* D (7-18) mg/dL Creatinine 1.4 H D (0.6-1.0) mg/dL Est Cr Clr Drug Dosing 29.15 mL/min Estimated GFR (MDRD) 37 L (>60) Glucose 98 (74-106) mg/dL Calcium 7.4 L (8.5-10.1) mg/dL Blood Type A POSITIVE Gel Antibody Screen Negative Crossmatch See Detail Meds: Medications Discontinued Medications Generic Name Dose Route Start Last Admin Trade Name Freq PRN Reason Stop Dose Admin Acetaminophen 650 mg 02/13/19 17:23 Tylenol PO Q4H PRN Pain (Mild 1-3)/fever Hydrocodone Bitart/Acetaminophen 1 tab 02/13/19 06:31 02/13/19 06:44 [place] 325-5 Mg PO 02/13/19 06:32 1 tab ONETIME ONE Administration Hydrocodone Bitart/Acetaminophen 1 tab 02/13/19 06:49 02/13/19 07:26 [place] 325-5 Mg PO 02/13/19 06:50 Not Given ONETIME ONE Hydrocodone Bitart/Acetaminophen 1 tab 02/13/19 14:41 02/13/19 14:55 [place] 325-5 Mg PO 02/13/19 14:42 1 tab ONETIME ONE Administration Hydrocodone Bitart/Acetaminophen 2 tab 02/13/19 17:23 02/16/19 01:09 [place] 325-5 Mg PO 2 tab Q4H PRN Administration Pain (moderate 4-6) Albuterol 2.5 mg 02/13/19 17:23 Proventil Neb Soln INH Q4H PRN wheezing Albuterol 0 gm 02/13/19 17:23 Ventolin Hfa INH Q6H PRN Wheezing Alendronate Sodium 70 mg 02/22/19 06:00 Fosamax PO Q7D@0600 JERRI Bisacodyl 10 mg 02/14/19 13:00 02/14/19 13:42 Dulcolax PO 02/14/19 13:01 10 mg ONETIME ONE Administration Bisacodyl 10 mg 02/14/19 20:00 02/14/19 20:54 Dulcolax PO 02/14/19 20:01 10 mg ONETIME ONE Administration Calcium Carbonate 1 tab 02/14/19 13:00 02/16/19 09:29 Caltrate 600+D 1500 Mg-400 Units PO 1 tab BID JERRI Administration Chlorthalidone 25 mg 02/14/19 09:00 02/16/19 09:25 Chlorthalidone PO 25 mg DAILY JERRI Administration Cyclosporine 0 each 02/13/19 21:00 02/13/19 20:33 Restasis EYEBOTH Not Given BID JERRI Cyclosporine 0 each 02/15/19 09:00 02/16/19 09:30 Restasis EYEBOTH 1 drop BID JERRI Administration Diclofenac Sodium 4 gm 02/13/19 22:00 02/14/19 05:00 Voltaren 1% Gel TOP Not Given QID JERRI Diclofenac Sodium 4 gm 02/15/19 10:00 02/16/19 10:54 Voltaren 1% Gel TOP Not Given QID [facility] Fentanyl Confirm 02/15/19 07:12 Sublimaze Administered 02/15/19 07:13 Dose 100 mcg .ROUTE .STK-MED ONE Ferrous Sulfate 325 mg 02/14/19 07:30 02/16/19 10:53 Ferrous Sulfate PO 325 mg TIDAC JERRI Administration Furosemide 80 mg 02/14/19 09:00 02/16/19 09:26 Lasix PO 80 mg DAILY JERRI Administration Gabapentin 300 mg 02/13/19 14:41 02/13/19 14:56 Neurontin PO 02/13/19 14:42 300 mg ONETIME ONE Administration Gabapentin 300 mg 02/13/19 21:00 02/16/19 09:25 Neurontin PO 300 mg TID JERRI Administration Hydroxychloroquine Sulfate 200 mg 02/14/19 09:00 02/16/19 09:29 Plaquenil PO 200 mg DAILY JERRI Administration Sodium Chloride 1,000 mls @ 100 mls/hr 02/14/19 11:15 02/15/19 09:36 Normal Saline IV Infused ASDIRECTED JERRI Infusion Sodium Chloride 1,000 mls @ 125 mls/hr 02/15/19 00:00 02/15/19 11:26 Normal Saline IV 125 mls/hr ASDIRECTED JERRI Administration Influenza Virus Vaccine 1 each 02/15/19 10:00 Pharmacy To Dose - Influenza Vaccine IM 02/15/19 10:01 ONETIME ONE Influenza Virus Vaccine 180 mcg 02/15/19 10:00 02/15/19 14:29 Fluzone High-Dose 2019-20 Syringe IM 02/15/19 10:01 180 mcg .ONCE ONE Administration Loratadine 10 mg 02/14/19 09:00 02/16/19 09:27 Claritin Reditabs PO 10 mg DAILY JERRI Administration Losartan Potassium 100 mg 02/14/19 09:00 02/16/19 09:28 Cozaar PO 100 mg DAILY JERRI Administration Magnesium Oxide 400 mg 02/13/19 21:00 02/16/19 09:25 Magnesium Oxide PO 400 mg TID JERRI Administration Midazolam HCl Confirm 02/15/19 07:12 Versed 1 Mg/Ml Administered 02/15/19 07:13 Dose 2 mg .ROUTE .STK-MED ONE Nystatin 0 gm 02/15/19 16:00 02/16/19 10:54 Nystop TOP 1 applic QID JERRI Administration Ondansetron HCl 4 mg 02/13/19 17:23 Zofran IV Q4H PRN Nausea/Vomiting Polyethylene Glycol 17 gm 02/13/19 17:23 Miralax PO DAILY PRN Constipation Polyethylene Glycol 238 gm 02/14/19 17:00 02/14/19 17:00 Miralax PO 02/14/19 17:01 238 gram ONETIME ONE Administration Propofol Confirm 02/15/19 07:12 Diprivan 20 Ml Administered 02/15/19 07:13 Dose 200 mg .ROUTE .STK-MED ONE Rivaroxaban 15 mg 02/14/19 09:00 02/14/19 09:01 Xarelto PO 15 mg DAILY JERRI Administration Ropinirole HCl 0.5 mg 02/13/19 14:41 02/13/19 14:56 Requip PO 02/13/19 14:42 0.5 mg ONETIME ONE Administration Ropinirole HCl 1.5 mg 02/13/19 21:00 02/14/19 20:55 Requip PO 1.5 mg BID JERRI Administration Ropinirole HCl 1.5 mg 02/15/19 03:33 02/15/19 04:00 Requip PO 02/15/19 03:34 1.5 mg ONETIME ONE Administration Ropinirole HCl 1 mg/ 1.5 mg 02/15/19 09:00 02/16/19 10:53 Ropinirole HCl 0.5 mg PO 1.5 mg BID JERRI Administration Ropinirole HCl 1.5 mg 02/16/19 23:12 Requip PO 02/16/19 23:13 ONETIME ONE Ropinirole HCl 1.5 mg 02/15/19 23:12 02/15/19 23:12 Requip PO 02/15/19 23:13 1.5 mg ONETIME ONE Administration Senna/Docusate Sodium 1 tab 02/13/19 17:23 02/16/19 09:26 Senna Plus PO 1 tab BID JERRI Administration Spironolactone 25 mg 02/14/19 09:00 02/16/19 09:26 Aldactone PO 25 mg DAILY JERRI Administration Trazodone HCl 50 mg 02/13/19 21:00 02/15/19 23:15 Trazodone PO 50 mg BEDTIME JERRI Administration - Radiology Interpretation Free Text/Narrative:: L hip X-rays- L knee X-ray- Departure - Departure Disposition: Admitted As Inpatient 68 Clinical Impression: Pelvic fracture Qualifiers: Encounter type: initial encounter Pelvic bone location: pubis Fracture type: closed Fracture alignment: nondisplaced - Discharge Information <Ramon Leyva - Last Filed: 02/16/19 17:26> Course - Orders/Labs/Meds Labs: Laboratory Tests 02/14/19 02/14/19 02/14/19 Range/Units 05:33 05:33 05:33 WBC 4.5 (4.5-11.0) K/uL RBC 2.28 L (3.30-5.50) M/uL Hgb 6.7 L* D (12.0-15.0) g/dL Hct 22.9 L (36.0-48.0) % MCV 100 H (80-98) fL MCH 29 (27-31) pg MCHC 29 L (32-36) % Plt Count 144 L (150-400) K/uL Neut % (Auto) 69 H (36-66) % Lymph % (Auto) 19 L (24-44) % [place] % (Auto) 8 H (2-6) % Eos % (Auto) 4 (2-4) % Baso % (Auto) 0 (0-1) % Sodium 145 (140-148) mmol/L Potassium 4.8 (3.6-5.2) mmol/L Chloride 113 H (100-108) mmol/L Carbon Dioxide 23 (21-32) mmol/L Anion Gap 13.8 (5.0-14.0) mmol/L BUN 82 H* D (7-18) mg/dL Creatinine 1.4 H D (0.6-1.0) mg/dL Est Cr Clr Drug Dosing 29.15 mL/min Estimated GFR (MDRD) 37 L (>60) Glucose 98 (74-106) mg/dL Calcium 7.4 L (8.5-10.1) mg/dL Blood Type A POSITIVE Gel Antibody Screen Negative Crossmatch See Detail - Re-Assessments/Exams Free Text/Narrative Re-Assessment/Exam: 02/13/19 08:34 Care turned over from Dr. Alexis pending results from x-rays of the hip and knee on the left side. A subtle irregularity in the hip was called and a CT was recommended. CT of the pelvis and left hip were obtained. 02/13/19 09:21 IMPRESSION: 1. Small linear sclerosis along the lateral femoral neck, but no disruption of trabecula. This is not thought to represent fracture, however if signs/symptoms are not explained by sacral, pubic ramus and L5 fractures, consider MRI of the left hip to exclude occult/nondisplaced fracture. 2. Bilateral sacral insufficiency fractures. 3. Age-indeterminate superior endplate compression fracture of L5. 4. Nondisplaced left inferior pubic ramus fracture. The above findings were discussed with orthopedics monogram maker. Patient was assisted onto the commode and is very unsteady, significant pain with left weightbearing. It is not reasonable to send this patient home in her current condition and expect her to be independent. 02/13/19 12:13 Orthopedist asked for an MRI of the left hip if possible. This was arranged and the results are below IMPRESSION: 1. Multiple insufficiency fractures including the left medial pubic bone, medial aspect of the superior pubic ramus, left inferior pubic ramus, bilateral sacral ala and posterior aspect of the right iliac bone. 2. No proximal femoral fracture on either side. 3. Mild superior endplate compression fracture of L5 may be acute. There is also a compression fracture of L3 of uncertain chronicity. 4. Degenerative changes of the left hip. Subchondral cystic change involving the anterior superior acetabulum likely relates to a limited area of grade 4 cartilage loss. Mild femoral head articular cartilage wear. 5. Interstitial muscle edema involving the left-sided obturator externus and internus muscles may relate either to muscle strain or reactive muscle changes from the adjacent fractures. 02/13/19 13:10 Above findings were discussed with orthopedics, it was recommended she be admitted for pain control and rehabilitation. Dr. Rivera of the hospitalist service was contacted, he suggested possibly a direct admit to a [facility] for rehabilitation and this will be explored as a possibility. Departure - Departure Time of Disposition: 17:25
--- NOTE | 2019-02-13 07:35 | CRLCR ---
Indication: Hip pain Technique: Left hip 2 views Comparison: None Findings: Bones: There is an irregularity in the medial subcapital region of the femoral neck visualized on the AP image. Fracture in this location is suggested but not certain. Consider CT evaluation for further assessment. No other osseous abnormality. Alignment is normal. Joint spaces: Moderate joint space narrowing and minimal subchondral sclerosis. No other degenerative changes. Soft tissues: Unremarkable. Dictated by Roland Corona MD @ Feb 13 2019 7:28AM Signed by Dr. Roland Corona @ Feb 13 2019 7:33AM
--- NOTE | 2019-02-13 07:35 | CRLCR ---
Indication: Knee pain left knee 3 Technique: views Comparison: None Findings: Bones: Alignment is normal. No fractures or bone lesions. Joint spaces: Unremarkable. No degenerative changes. No joint effusion. Soft tissues: Mild atherosclerosis. Dictated by Roland Corona MD @ Feb 13 2019 7:33AM Signed by Dr. Roland Corona @ Feb 13 2019 7:34AM
--- NOTE | 2019-02-13 08:58 | CRLCT ---
INDICATION: Pain. Abnormal x-ray. COMPARISON: 02/13/2019 radiographs. TECHNIQUE: CT of the left hip without contrast. FINDINGS: Age-indeterminate superior endplate compression fracture deformity of L5. Bilateral sacral insufficiency fractures. Nondisplaced left inferior pubic ramus fracture. Small focus of linear sclerosis along the lateral femoral neck (series 5, images 64 and 65), but no disruption of the trabeculae. Mild anasarca and mild pelvic ascites. Urinary bladder is unremarkable. [id number]-[id number] diffuse muscle atrophy. Bones are diffusely demineralized. No lytic or blastic lesion is identified. Atherosclerotic vascular calcifications. Lower lumbar spine facet arthropathy. Osteophyte formation and vacuum phenomenon at the pubic symphysis. Degenerative disc disease at L L4-L5 and L5-S1. IMPRESSION: 1. Small linear sclerosis along the lateral femoral neck, but no disruption of trabecula. This is not thought to represent fracture, however if signs/symptoms are not explained by sacral, pubic ramus and L5 fractures, consider MRI of the left hip to exclude occult/nondisplaced fracture. 2. Bilateral sacral insufficiency fractures. 3. Age-indeterminate superior endplate compression fracture of L5. 4. Nondisplaced left inferior pubic ramus fracture. Please note that all CT scans at this facility use dose modulation, iterative reconstruction, and/or weight-based dosing when appropriate to reduce radiation dose to as low as reasonably achievable. Dictated by Bryant Benitez MD @ Feb 13 2019 8:22AM Signed by Dr. Bryant Benitez @ Feb 13 2019 8:57AM
--- NOTE | 2019-02-13 12:05 | CRLMR ---
HISTORY: Left hip pain. Evaluate for occult fracture. TECHNIQUE: Axial T1, coronal T1, coronal PD fat-sat and coronal STIR large [id number] images were obtained of the entire pelvis. Axial sagittal and coronal proton density fat saturated small [id number] images obtained of the left hip. COMPARISON: CT 02/13/2019, radiographs 02/13/2019. FINDINGS: Examination is mildly limited by motion artifact. - Osseous structures: Nondisplaced insufficiency type fractures are noted involving the left medial pubic bone, medial aspect of the superior pubic ramus, left inferior pubic ramus and bilateral sacral ala. There is also bone marrow edema within the right posterior iliac bone related to a nondisplaced insufficiency type fracture. There is no femoral neck or intertrochanteric fracture on either side. No avascular necrosis of the femoral head on either side. Mild superior endplate compression fracture of L5 with associated bone marrow edema. L3 compression fracture of uncertain chronicity. - Left hip: No significant left hip joint effusion. There is a focus of subchondral cystic change involving the anterior superior acetabulum the left which may relate to a limited area of underlying grade 4 full-thickness cartilage loss. Mild thinning of the femoral head articular cartilage. Labral assessment limited by motion artifact. - Right hip: No right hip joint effusion. Mild cartilage wear. - Musculotendinous structures and bursae: The distal iliopsoas tendons are intact. There is some edema involving deep fibers of the iliacus muscles bilaterally. The interstitial muscle edema involving the left-sided obturator internus and externus muscles may relate to strain or reactive muscle changes from the adjacent fractures. On the left, there is moderate fatty infiltration of the gluteus minimus muscle likely reflecting chronic strain changes. Distal gluteus medius tendon is intact. The common hamstring tendons are intact. - Other findings: Degenerative changes of the sacroiliac joints and within the spine. - Intrapelvic soft tissues: There is a right-sided paravaginal cyst that measures approximately 1.6 cm. Inguinal region lymph nodes are likely reactive. IMPRESSION: 1. Multiple insufficiency fractures including the left medial pubic bone, medial aspect of the superior pubic ramus, left inferior pubic ramus, bilateral sacral ala and posterior aspect of the right iliac bone. 2. No proximal femoral fracture on either side. 3. Mild superior endplate compression fracture of L5 may be acute. There is also a compression fracture of L3 of uncertain chronicity. 4. Degenerative changes of the left hip. Subchondral cystic change involving the anterior superior acetabulum likely relates to a limited area of grade 4 cartilage loss. Mild femoral head articular cartilage wear. 5. Interstitial muscle edema involving the left-sided obturator externus and internus muscles may relate either to muscle strain or reactive muscle changes from the adjacent fractures. Dictated by Henry Price MD @ 02/13/2019 12:04:53 PM Dictated by: Henry Price MD @ 02/13/2019 12:04:59 (Electronically Signed)
[2019-02-13] MEDS ORDERED: Gabapentin 300 MG Cap PO ONE (14:41)
[2019-02-13] MEDS ORDERED: rOPINIRole 0.5 MG Tab PO ONE (14:41)
--- NOTE | 2019-02-13 16:25 | PCM.HP.2 ---
H&P History of Present Illness - General Date of Service: 02/13/19 Admit Problem/Dx: Admission Diagnosis/Problem Admission Diagnosis/Problem Pain Source of Information: Patient, Provider, RN Notes Reviewed History Limitations: Reports: No Limitations - History of Present Illness Initial Comments - Free Text/Narative: Ms. Obrien is a 73-year-old woman who was admitted to observation status through the emergency department for management of pain secondary to multiple pelvic fractures. She is had ongoing difficulty with pain in her pelvis and lower back over the past 2 weeks. It is become more severe over the past few days. MRI of the pelvis obtained in the emergency department shows insufficiency fractures of the right posterior iliac, sacral ala, left inferior pubic rami and left superior pubic rami as well as compression fractures of indeterminate age of L5 and L3. She has marked difficulty with ambulation and transfers because of pain. She is admitted for pain management and to facilitate long-term placement. left hip/knee Pain Score (Numeric/FACES): 2 - Related Data Allergies/Adverse Reactions: Allergies Allergy/AdvReac Type Severity Reaction Status Date / Time hydrochlorothiazide Allergy Other Verified 02/13/19 06:06 [From Dyazide] oxybutynin Allergy Other Verified 02/13/19 06:06 [id number] Reductase Allergy Other Verified 02/13/19 06:06 Inhibitor triamterene [From Dyazide] Allergy Other Verified 02/13/19 06:06 budesonide [From Symbicort] AdvReac Nausea and Verified 02/13/19 06:06 Vomiting formoterol fumarate AdvReac Nausea and Verified 02/13/19 06:06 [From Symbicort] Vomiting pregabalin [From Lyrica] AdvReac Headache Verified 02/13/19 06:06 tizanidine AdvReac Nausea Verified 02/13/19 06:06 Home Medications: Home Meds Hydroxychloroquine Sulfate 200 mg PO DAILY 05/09/13 [History] cycloSPORINE [Restasis] 1 drop EYEBOTH BID 05/09/13 [History] Loratadine [Allergy Relief] 10 mg PO DAILY 01/07/15 [History] Losartan Potassium [Cozaar] 100 mg PO DAILY 01/07/15 [History] Albuterol [Proventil Neb Soln] 3 ml INH Q4H PRN 09/22/15 [History] Albuterol [Ventolin HFA] 2 puff INH Q6H PRN 09/22/15 [History] Furosemide 80 mg PO DAILY 09/22/15 [History] Magnesium Oxide 400 mg PO TID 05/17/16 [History] Chlorthalidone 25 mg PO DAILY 09/26/18 [History] Diclofenac Sodium [Voltaren] 4 gm TOP QID 09/26/18 [History] Gabapentin [Neurontin] 300 - 600 mg PO TID 09/26/18 [History] Loperamide [Imodium AD] 2 mg PO BID PRN 09/26/18 [History] Triamcinolone Acetonide [Kenalog 0.1% Crm] 1 applic TOP TID PRN 09/26/18 [ History] Ferrous Sulfate 325 mg PO TIDAC 12/24/18 [History] rOPINIRole [Requip] 1.5 mg PO BID 12/24/18 [History] Hydrocodone/Acetaminophen [Hydrocodon-Acetaminophen 5-325] 1 each PO Q4HR [History] Rivaroxaban [Xarelto] 15 mg PO DAILY 02/13/19 [History] Spironolactone [Aldactone] 25 mg PO DAILY 02/13/19 [History] traZODone HCl [Trazodone HCl] 50 mg PO BEDTIME 02/13/19 [History] Past Medical History HEENT History: Reports: Glaucoma, Impaired Vision Other HEENT History: Otitis externa of right ear, bilateral dry eyes Cardiovascular History: Reports: CAD, Heart Murmur, High Cholesterol, Hypertension, SOB on Exertion Other Cardiovascular History: RBBB,ventricular diastolic dysfunction Respiratory History: Reports: Asthma, COPD, Other (See Below) Other Respiratory History: pulmonary hypertension. Uses O2 at night. 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: Musculoskeletal History: Reports: Arthritis, Back Pain, Chronic, Fracture, Osteoporosis Other Musculoskeletal History: fx ankle Endocrine/Metabolic History: Reports: Diabetes, Type II, Obesity/BMI 30+, Osteoporosis Other Endocrine/Metabolic History: lupus Hematologic History: Reports: Anticoagulation Therapy Immunologic History: Reports: SLE Other Immunologic History: lupus anticoagulant positive Dermatologic History: Reports: Venous Stasis Dermatitis - Infectious Disease History Infectious Disease History: Reports: Chicken Pox - Past Surgical History Female Surgical History: Reports: Breast Biopsy Musculoskeletal Surgical History: Reports: Other (See Below) Other Musculoskeletal Surgeries/Procedures:: left ankle repair Dermatological Surgical History: Reports: Skin Biopsy Social & Family History - Tobacco Use Smoking Status *Q: Former Smoker Used Tobacco, but Quit: Yes Month/Year Tobacco Last Used: 2004 - Caffeine Use Caffeine Use: Reports: Coffee, Soda Other Caffeine Use: 3 cups coffee daily, 1 can pop dailty - Recreational Drug Use Recreational Drug Use: No - Living Situation & Occupation Living situation: Reports: Single, Alone (lives alone in her home in [place], [place]., 2 children; son Palmer,who visits on weekends, Daughter two years ago of overdose. 3 grandchildren.) H&P Review of Systems - Review of Systems: Review Of Systems: See Below General: Reports: No Symptoms HEENT: Reports: No Symptoms Pulmonary: Reports: No Symptoms Cardiovascular: Reports: No Symptoms Gastrointestinal: Reports: No Symptoms Genitourinary: Reports: No Symptoms Musculoskeletal: Reports: Back Pain, Other (Pelvic pain) Skin: Reports: No Symptoms Psychiatric: Reports: No Symptoms Neurological: Reports: No Symptoms Hematologic/Lymphatic: Reports: No Symptoms Immunologic: Reports: No Symptoms Exam - Exam Exam: See Below - Vital Signs Vital Signs: Last Vital Signs Temp 98.9 F 02/13/19 11:45 Pulse 53 L 02/13/19 11:45 Resp 16 02/13/19 11:45 BP 129/33 L 02/13/19 11:45 Pulse Ox 94 L 02/13/19 11:45 Weight: 168 lb - Exam Quality Assessment: DVT Prophylaxis General: Alert, Oriented, Cooperative, Mild Distress HEENT: Conjunctiva Clear, Hearing Intact, Mucosa Moist & [place], Normal Nasal Septum, Posterior Pharynx Clear, Pupils Equal Neck: Supple, Trachea Midline, +2 Carotid Pulse wo Bruit Lungs: Clear to Auscultation, Normal Respiratory Effort, Decreased Breath Sounds Cardiovascular: Regular Rate, Regular Rhythm, Normal S1, Normal S2, Systolic Murmur, Diastolic Murmur Back Exam: Vertebral Tenderness Extremities: Non-Tender, Pedal Edema, Other (Pelvic and lower back pain) Skin: Warm, Dry Neurological: Cranial Nerves Intact, Strength Equal Bilateral, Normal Speech, Normal Tone, Sensation Intact. No: Focal Deficit Neuro Extensive - Mental Status: Alert, Oriented x3, Normal Mood/Affect, Normal Cognition, Memory Intact *Q Meaningful Use (ADM) - VTE *Q VTE Pharmacological Contraindications *Q: Not Candidate LT Anticoag - VTE Risk Assess *Q Each Risk Factor Represents 1 Point: Obesity ( BMI > 25 kg/m2), Abnormal Pulmonary Function (COPD) Total Score 1 Point Risk Factors: 2 Each Risk Factor Represents 2 Points: Age 60 - 74 Years Total Score 2 Point Risk Factors: 2 Each Risk Factor Represents 3 Points: None Total Score 3 Point Risk Factors: 0 Each Risk Factor Represents 5 Points: None Total Score 5 Point Risk Factors: 0 Venous Thromboembolism Risk Factor Score *Q: 4 Problem List Initiated/Reviewed/Updated: Yes Orders Last 24hrs: Active Orders 24 hr Category Date Time Status Patient Status Manage Transfer [TRANSFER] Routine ADT 02/13/19 16:16 Ordered Resuscitation Status Routine Resus Stat 02/13/19 16:20 Ordered Assessment/Plan Comment:: ASSESSMENT AND PLAN MULTIPLE PELVIC INSUFFICIENCY FRACTURES-history of significant pelvic pain causing difficulty with ambulation and transfers -Pain medication as needed -[facility] placement COPD-stable with no evidence of exacerbation -Continue outpatient medications HYPERTENSION-pressures under adequate control -10 year outpatient medications MAINTENANCE ISSUES -DVT prophylaxis; current therapy with Eliquis should provide adequate DVT prophylaxis -GI prophylaxis; not indicated -Villeda catheter; not indicated -Nutrition; regular diet -Nicotine dependence; not required CODE STATUS-FULL CODE ADMISSION STATUS-this patient will be admitted to observation status, expect no more than a one night hospital stay for evaluation and management of problems as outlined above. DISPOSITION-anticipate discharge to home after the hospital stay. PRIMARY CARE PROVIDER-Dr. Dr. Koenig - Mortality Measure Prognosis:: Good
[2019-02-13] MEDS ORDERED: Ondansetron 4 MG/2 ML SDV IV PRN (17:23)
[2019-02-13] MEDS ORDERED: Polyethylene Glycol 3350 Powder 17 GM Packet PO PRN (17:23)
[2019-02-13] MEDS ORDERED: Albuterol 0.083% 2.5 MG/3 ML Neb Soln INH PRN (17:23)
[2019-02-13] MEDS ORDERED: Acetaminophen 325 MG Tab PO PRN (17:23)
[2019-02-13] MEDS ORDERED: Albuterol 8 GM Inhaler INH PRN (17:23)
[2019-02-13] MEDS: Acetaminophen/HYDROcodone 325-5 MG Tab PO PRN (20:20)
[2019-02-13] MEDS: traZODone 50 MG Tab PO SCH (20:24)
[2019-02-13] MEDS: Magnesium Oxide 400 MG Tab PO SCH (20:29)
[2019-02-13] MEDS: rOPINIRole 1 MG Tab PO SCH (20:30)
[2019-02-13] MEDS: Gabapentin 300 MG Cap PO SCH (20:30)
[2019-02-13] MEDS ORDERED: cycloSPORINE Ophth Drops U/D Box of 30 EYEBOTH SCH (21:00)
[2019-02-13] MEDS: Diclofenac Sodium 1% Gel 100 GM Tube TOP SCH (22:00)
[2019-02-14] MEDS: Diclofenac Sodium 1% Gel 100 GM Tube TOP SCH (05:00)
[2019-02-14] MEDS: Acetaminophen/HYDROcodone 325-5 MG Tab PO PRN ×2 (06:49→17:10)
[2019-02-14] MEDS: Chlorthalidone 25 MG Tab PO SCH (09:00)
[2019-02-14] MEDS ORDERED: Rivaroxaban 15 MG Tab PO SCH (09:00)
[2019-02-14] MEDS: Magnesium Oxide 400 MG Tab PO SCH ×3 (09:01→20:55)
[2019-02-14] MEDS: Ferrous Sulfate 325 MG Tab PO SCH ×3 (09:01→17:01)
[2019-02-14] MEDS: Furosemide 40 MG Tab PO SCH (09:01)
[2019-02-14] MEDS: Loratadine 10 MG Tab.DIS PO SCH (09:02)
[2019-02-14] MEDS: Spironolactone 25 MG Tab PO SCH (09:02)
[2019-02-14] MEDS: Gabapentin 300 MG Cap PO SCH ×3 (09:03→20:55)
[2019-02-14] MEDS: rOPINIRole 1 MG Tab PO SCH ×2 (09:03→20:55)
[2019-02-14] MEDS: Hydroxychloroquine 200 MG Tab PO SCH (09:04)
[2019-02-14] MEDS: Losartan 50 MG Tab PO SCH (09:04)
--- NOTE | 2019-02-14 11:45 | PCM.PN ---
- General Info Date of Service: 02/14/19 Subjective Update: Ms. Obrien is been stable as far as her pain control, does experience increased pain with transfers and standing. Labs obtained this morning unfortunately show significant anemia with a hemoglobin of 6.7. She denies recent hematemesis, melena, hematuria, or hematochezia. Functional Status: Reports: Tolerating Diet, Urinating - Review of Systems General: Reports: Weakness. Denies: Fever, Chills Pulmonary: Reports: No Symptoms Cardiovascular: Reports: No Symptoms Gastrointestinal: Reports: No Symptoms Musculoskeletal: Reports: Other (Pelvic pain) - Patient Data Vitals - Most Recent: Last Vital Signs Temp 96.3 F 02/14/19 11:10 Pulse 51 L 02/14/19 11:10 Resp 18 02/14/19 11:10 BP 109/86 02/14/19 11:10 Pulse Ox 93 L 02/14/19 07:00 Weight - Most Recent: 183 lb 6.793 oz I&O - Last 24 Hours: Intake & Output 02/13/19 02/14/19 02/14/19 22:59 06:59 14:59 Intake Total 0 240 Output Total 100 Balance 0 140 Lab Results Last 24 Hours: Laboratory Results - last 24 hr 02/14/19 02/14/19 02/14/19 Range/Units 05:33 05:33 05:33 WBC 4.5 (4.5-11.0) K/uL RBC 2.28 L (3.30-5.50) M/uL Hgb 6.7 L* D (12.0-15.0) g/dL Hct 22.9 L (36.0-48.0) % MCV 100 H (80-98) fL MCH 29 (27-31) pg MCHC 29 L (32-36) % Plt Count 144 L (150-400) K/uL Neut % (Auto) 69 H (36-66) % Lymph % (Auto) 19 L (24-44) % [place] % (Auto) 8 H (2-6) % Eos % (Auto) 4 (2-4) % Baso % (Auto) 0 (0-1) % Sodium 145 (140-148) mmol/L Potassium 4.8 (3.6-5.2) mmol/L Chloride 113 H (100-108) mmol/L Carbon Dioxide 23 (21-32) mmol/L Anion Gap 13.8 (5.0-14.0) mmol/L BUN 82 H* D (7-18) mg/dL Creatinine 1.4 H D (0.6-1.0) mg/dL Est Cr Clr Drug Dosing 29.15 mL/min Estimated GFR (MDRD) 37 L (>60) Glucose 98 (74-106) mg/dL Calcium 7.4 L (8.5-10.1) mg/dL Blood Type A POSITIVE Gel Antibody Screen Negative Crossmatch See Detail Med Orders - Current: Current Medications Acetaminophen (Tylenol) 650 mg PO Q4H PRN PRN Reason: Pain (Mild 1-3)/fever Hydrocodone Bitart/Acetaminophen ([place] 325-5 Mg) 2 tab PO Q4H PRN PRN Reason: Pain (moderate 4-6) Last Admin: 02/14/19 06:49 Dose: 2 tab Albuterol (Proventil Neb Soln) 2.5 mg INH Q4H PRN PRN Reason: wheezing Albuterol (Ventolin Hfa) 0 gm INH Q6H PRN PRN Reason: Wheezing Bisacodyl (Dulcolax) 10 mg PO ONETIME ONE Stop: 02/14/19 11:26 Bisacodyl (Dulcolax) 10 mg PO ONETIME ONE Stop: 02/14/19 20:01 Calcium Carbonate (Caltrate 600+D 1500 Mg-400 Units) 1 tab PO BID [facility] Chlorthalidone (Chlorthalidone) 25 mg PO DAILY [facility] Last Admin: 02/14/19 09:00 Dose: 25 mg Cyclosporine (Restasis) 0 each EYEBOTH BID [facility] Diclofenac Sodium (Voltaren 1% Gel) 4 gm TOP QID [facility] Ferrous Sulfate (Ferrous Sulfate) 325 mg PO TIDAC [facility] Last Admin: 02/14/19 09:01 Dose: 325 mg Furosemide (Lasix) 80 mg PO DAILY [facility] Last Admin: 02/14/19 09:01 Dose: 80 mg Gabapentin (Neurontin) 300 mg PO TID [facility] Last Admin: 02/14/19 09:03 Dose: 300 mg Hydroxychloroquine Sulfate (Plaquenil) 200 mg PO DAILY [facility] Last Admin: 02/14/19 09:04 Dose: 200 mg Sodium Chloride (Normal Saline) 1,000 mls @ 100 mls/hr IV ASDIRECTED [facility] Influenza Virus Vaccine (Fluzone High-Dose 2019-20 Syringe) 180 mcg IM .ONCE ONE Stop: 02/15/19 10:01 Loratadine (Claritin Reditabs) 10 mg PO DAILY [facility] Last Admin: 02/14/19 09:02 Dose: 10 mg Losartan Potassium (Cozaar) 100 mg PO DAILY [facility] Last Admin: 02/14/19 09:04 Dose: 100 mg Magnesium Oxide (Magnesium Oxide) 400 mg PO TID [facility] Last Admin: 02/14/19 09:01 Dose: 400 mg Ondansetron HCl (Zofran) 4 mg IV Q4H PRN PRN Reason: Nausea/Vomiting Polyethylene Glycol (Miralax) 17 gm PO DAILY PRN PRN Reason: Constipation Polyethylene Glycol (Miralax) 238 gm PO ONETIME ONE Stop: 02/14/19 17:01 Ropinirole HCl (Requip) 1.5 mg PO BID [facility] Last Admin: 02/14/19 09:03 Dose: 1.5 mg Senna/Docusate Sodium (Senna Plus) 1 tab PO BID [facility] Last Admin: 02/14/19 09:01 Dose: 1 tab Spironolactone (Aldactone) 25 mg PO DAILY [facility] Last Admin: 02/14/19 09:02 Dose: 25 mg Trazodone HCl (Trazodone) 50 mg PO BEDTIME [facility] Last Admin: 02/13/19 20:24 Dose: Not Given Discontinued Medications Hydrocodone Bitart/Acetaminophen ([place] 325-5 Mg) 1 tab PO ONETIME ONE Stop: 02/13/19 06:32 Last Admin: 02/13/19 06:44 Dose: 1 tab Hydrocodone Bitart/Acetaminophen ([place] 325-5 Mg) 1 tab PO ONETIME ONE Stop: 02/13/19 06:50 Last Admin: 02/13/19 07:26 Dose: Not Given Hydrocodone Bitart/Acetaminophen ([place] 325-5 Mg) 1 tab PO ONETIME ONE Stop: 02/13/19 14:42 Last Admin: 02/13/19 14:55 Dose: 1 tab Cyclosporine (Restasis) 0 each EYEBOTH BID [facility] Last Admin: 02/13/19 20:33 Dose: Not Given Diclofenac Sodium (Voltaren 1% Gel) 4 gm TOP QID [facility] Last Admin: 02/14/19 05:00 Dose: Not Given Gabapentin (Neurontin) 300 mg PO ONETIME ONE Stop: 02/13/19 14:42 Last Admin: 02/13/19 14:56 Dose: 300 mg Influenza Virus Vaccine (Pharmacy To Dose - Influenza Vaccine) 1 each IM ONETIME ONE Stop: 02/15/19 10:01 Rivaroxaban (Xarelto) 15 mg PO DAILY [facility] Last Admin: 02/14/19 09:01 Dose: 15 mg Ropinirole HCl (Requip) 0.5 mg PO ONETIME ONE Stop: 02/13/19 14:42 Last Admin: 02/13/19 14:56 Dose: 0.5 mg - Exam General: Alert, Oriented, Cooperative, Mild Distress Lungs: Clear to Auscultation, Normal Respiratory Effort Cardiovascular: Regular Rate, Regular Rhythm, No Murmurs GI/Abdominal Exam: Soft, Non-Tender, No Organomegaly, No Distention Extremities: Non-Tender, No Pedal Edema - Problem List Review Problem List Initiated/Reviewed/Updated: Yes - My Orders Last 24 Hours: My Active Orders 02/13/19 16:20 Resuscitation Status Routine 02/13/19 17:23 Ambulate [RC] QID Height and Weight [RC] 0500 Intake and Output [RC] .PRN Notify Provider Vital Signs [RC] ASDIRECTED Oxygen Therapy [RC] PRN Up With Assistance [RC] ASDIRECTED Up to Chair [RC] QID VTE/DVT Education [RC] Per Unit Routine Vital Signs [RC] Q4H PT Evaluation and Treatment [CONS] Routine Acetaminophen [Tylenol] 650 mg PO Q4H PRN Acetaminophen/HYDROcodone [[place] 325-5 MG] 2 tab PO Q4H PRN Albuterol [Proventil Neb Soln] 2.5 mg INH Q4H PRN Albuterol [Ventolin HFA] 0 gm INH Q6H PRN Docusate Sodium/Sennosides [Senna Plus] 1 tab PO BID Ondansetron [Zofran] 4 mg IV Q4H PRN Polyethylene Glycol 3350 [MiraLAX] 17 gm PO DAILY PRN VTE Pharmacological Contraindications [AST] Per Unit Routine 02/13/19 18:00 Influenza Vaccine Charge [RC] .DISCHARGE 02/13/19 21:00 Gabapentin [Neurontin] 300 mg PO TID Magnesium Oxide 400 mg PO TID rOPINIRole [Requip] 1.5 mg PO BID traZODone 50 mg PO BEDTIME 02/14/19 05:33 RED BLOOD CELLS LP [BBK] Routine TYPE AND SCREEN [BBK] Routine 02/14/19 05:47 Transfuse Red Blood Cells [COMM] Routine 02/14/19 07:30 Ferrous Sulfate 325 mg PO TIDAC 02/14/19 08:21 Patient Status [ADT] Routine 02/14/19 09:00 Chlorthalidone 25 mg PO DAILY Furosemide [Lasix] 80 mg PO DAILY Hydroxychloroquine [Plaquenil] 200 mg PO DAILY Loratadine [Claritin RediTabs] 10 mg PO DAILY Losartan [Cozaar] 100 mg PO DAILY Spironolactone [Aldactone] 25 mg PO DAILY 02/14/19 11:15 Sodium Chloride 0.9% [Normal Saline] 1,000 ml IV ASDIRECTED 02/14/19 11:25 Verify Patient Consent Obtain [RC] ASDIRECTED Bisacodyl [Dulcolax] 10 mg PO ONETIME ONE Schedule Procedure [COMM] Routine 02/14/19 11:26 Consult to Physician [CONS] Routine 02/14/19 11:27 Notify Provider Consults [RC] ASDIRECTED 02/14/19 11:30 Calcium Carbonate/Vitamin D3 [Caltrate 600+D 1500 MG-400 Units] 1 tab PO BID 02/14/19 17:00 HGB [HEMOGLOBIN] [HEME] Stat Polyethylene Glycol 3350 [MiraLAX] 238 gm PO ONETIME ONE 02/14/19 20:00 Bisacodyl [Dulcolax] 10 mg PO ONETIME ONE 02/14/19 Lunch Clear Liquid Diet [DIET] 02/15/19 05:00 BASIC METABOLIC PANEL,BMP [CHEM] Timed CBC WITH AUTO DIFF [HEME] Timed 02/15/19 09:00 cycloSPORINE [Restasis] 0 each EYEBOTH BID 02/15/19 10:00 Diclofenac Sodium [Voltaren 1% Gel] 4 gm TOP QID FLU Vacc [id number](65YR UP)/PF [Fluzone High-Dose Syringe] 180 mcg IM .ONCE ONE 02/15/19 Breakfast NPO After Midnight [Nothing per Oral After Midnight Diet] [DIET] - Plan Plan:: ASSESSMENT AND PLAN MULTIPLE PELVIC INSUFFICIENCY FRACTURES-history of significant pelvic pain causing difficulty with ambulation and transfers -Pain medication as needed -long term placement SEVERE ANEMIA-hemoglobin of 6.7 this morning, she denies any history or evidence of recent bleeding. Anemia may be secondary to recent pelvic insufficiency fractures with associated bleeding. -Serial hemoglobin levels -Transfuse 1 unit of red blood cells today -EGD and colonoscopy in a.m. with Dr. Deng COPD-stable with no evidence of exacerbation -Continue outpatient medications HYPERTENSION-pressures under adequate control -10 year outpatient medications MAINTENANCE ISSUES -DVT prophylaxis; anticoagulation on hold because of severe anemia and probable bleed -GI prophylaxis; not indicated -Villeda catheter; not indicated -Nutrition; regular diet -Nicotine dependence; not required CODE STATUS-FULL CODE ADMISSION STATUS-this patient will be admitted to observation status, expect no more than a one night hospital stay for evaluation and management of problems as outlined above. DISPOSITION-anticipate discharge to home after the hospital stay. PRIMARY CARE PROVIDER-Dr. Dr. Koenig
[2019-02-14] MEDS ORDERED: Bisacodyl 5 MG Tab PO ONE ×2 (13:00→20:00)
[2019-02-14] MEDS: Calcium Carbonate/Vitamin D3 1500 MG-400 Units Tab PO SCH ×2 (13:40→20:55)
[2019-02-14] MEDS: Sodium Chloride 0.9% 1,000 ML IV SCH ×3 (13:49→23:36)
[2019-02-14] MEDS ORDERED: Polyethylene Glycol 3350 Powder 238 GM Bot PO ONE (17:00)
[2019-02-14] MEDS: traZODone 50 MG Tab PO SCH (20:54)
[2019-02-15] MEDS: Acetaminophen/HYDROcodone 325-5 MG Tab PO PRN ×2 (02:19→17:02)
[2019-02-15] MEDS ORDERED: rOPINIRole 1 MG Tab PO ONE ×2 (03:33→23:12)
[2019-02-15] MEDS ORDERED: Propofol 200 MG/20 ML SDV ONE (07:12)
[2019-02-15] MEDS ORDERED: fentaNYL 100 MCG/2 ML SDV ONE (07:12)
[2019-02-15] MEDS ORDERED: Midazolam 1 MG/ML 2 ML SDV ONE (07:12)
[2019-02-15] MEDS: Sodium Chloride 0.9% 1,000 ML IV SCH ×4 (07:35→11:26)
[2019-02-15] MEDS: Spironolactone 25 MG Tab PO SCH (09:42)
[2019-02-15] MEDS: Losartan 50 MG Tab PO SCH (09:42)
[2019-02-15] MEDS: Gabapentin 300 MG Cap PO SCH ×3 (09:43→21:03)
[2019-02-15] MEDS: Ferrous Sulfate 325 MG Tab PO SCH ×3 (09:43→15:16)
[2019-02-15] MEDS: Loratadine 10 MG Tab.DIS PO SCH (09:43)
[2019-02-15] MEDS: Magnesium Oxide 400 MG Tab PO SCH ×3 (09:43→21:03)
[2019-02-15] MEDS: Chlorthalidone 25 MG Tab PO SCH (09:43)
[2019-02-15] MEDS: Furosemide 40 MG Tab PO SCH (09:43)
[2019-02-15] MEDS: Calcium Carbonate/Vitamin D3 1500 MG-400 Units Tab PO SCH ×2 (09:44→21:03)
[2019-02-15] MEDS: Hydroxychloroquine 200 MG Tab PO SCH (09:44)
[2019-02-15] MEDS: cycloSPORINE Ophth Drops U/D Box of 30 EYEBOTH SCH ×2 (09:46→21:02)
[2019-02-15] MEDS: ROPINIROLE PO SCH ×4 (09:52→21:03)
[2019-02-15] MEDS ORDERED: Pneumococcal Polyvalent-23 Vaccine 0.5 ML SDV IM ONE (10:00)
[2019-02-15] MEDS: Diclofenac Sodium 1% Gel 100 GM Tube TOP SCH ×3 (11:58→21:04)
--- NOTE | 2019-02-15 12:49 | PCM.PN ---
- General Info Date of Service: 02/15/19 Subjective Update: Ms. Obrien has been stable since yesterday. Hemoglobin has remained in acceptable range following transfusion of 1 unit of red blood cells. She is comfortable at rest but does experience increased pain with transfers and standing. EGD and colonoscopy were performed earlier today and showed no obvious source of active bleeding. Functional Status: Reports: Tolerating Diet, Urinating - Review of Systems General: Reports: No Symptoms Pulmonary: Reports: No Symptoms Cardiovascular: Reports: No Symptoms Gastrointestinal: Reports: No Symptoms Musculoskeletal: Reports: Back Pain, Other (Pelvic pain) - Patient Data Vitals - Most Recent: Last Vital Signs Temp 96.6 F 02/15/19 09:24 Pulse 76 02/15/19 11:00 Resp 16 02/15/19 10:35 BP 166/49 H 02/15/19 11:00 Pulse Ox 96 02/15/19 10:35 Weight - Most Recent: 183 lb 6.793 oz I&O - Last 24 Hours: Intake & Output 02/14/19 02/15/19 02/15/19 22:59 06:59 14:59 Intake Total 480 2739 Output Total 800 Balance -320 2739 Lab Results Last 24 Hours: Laboratory Results - last 24 hr 02/14/19 02/15/19 02/15/19 Range/Units 16:45 03:55 03:55 WBC 4.7 (4.5-11.0) K/uL RBC 2.85 L (3.30-5.50) M/uL Hgb 8.0 L 8.4 L (12.0-15.0) g/dL Hct 27.4 L (36.0-48.0) % MCV 96 (80-98) fL MCH 30 (27-31) pg MCHC 31 L (32-36) % Plt Count 145 L (150-400) K/uL Neut % (Auto) 71 H (36-66) % Lymph % (Auto) 16 L (24-44) % [place] % (Auto) 7 H (2-6) % Eos % (Auto) 7 H (2-4) % Baso % (Auto) 0 (0-1) % Sodium 143 (140-148) mmol/L Potassium 3.9 (3.6-5.2) mmol/L Chloride 109 H (100-108) mmol/L Carbon Dioxide 24 (21-32) mmol/L Anion Gap 13.9 (5.0-14.0) mmol/L BUN 64 H (7-18) mg/dL Creatinine 1.1 H (0.6-1.0) mg/dL Est Cr Clr Drug Dosing 37.10 mL/min Estimated GFR (MDRD) 49 L (>60) Glucose 93 (74-106) mg/dL Calcium 7.1 L (8.5-10.1) mg/dL Med Orders - Current: Current Medications Acetaminophen (Tylenol) 650 mg PO Q4H PRN PRN Reason: Pain (Mild 1-3)/fever Hydrocodone Bitart/Acetaminophen ([place] 325-5 Mg) 2 tab PO Q4H PRN PRN Reason: Pain (moderate 4-6) Last Admin: 02/15/19 02:19 Dose: 2 tab Albuterol (Proventil Neb Soln) 2.5 mg INH Q4H PRN PRN Reason: wheezing Albuterol (Ventolin Hfa) 0 gm INH Q6H PRN PRN Reason: Wheezing Calcium Carbonate (Caltrate 600+D 1500 Mg-400 Units) 1 tab PO BID [facility] Last Admin: 02/15/19 09:44 Dose: 1 tab Chlorthalidone (Chlorthalidone) 25 mg PO DAILY [facility] Last Admin: 02/15/19 09:43 Dose: 25 mg Cyclosporine (Restasis) 0 each EYEBOTH BID [facility] Last Admin: 02/15/19 09:46 Dose: 1 drop Diclofenac Sodium (Voltaren 1% Gel) 4 gm TOP QID [facility] Last Admin: 02/15/19 11:58 Dose: 1 applic Ferrous Sulfate (Ferrous Sulfate) 325 mg PO TIDAC [facility] Last Admin: 02/15/19 11:59 Dose: 325 mg Furosemide (Lasix) 80 mg PO DAILY [facility] Last Admin: 02/15/19 09:43 Dose: 80 mg Gabapentin (Neurontin) 300 mg PO TID [facility] Last Admin: 02/15/19 09:43 Dose: 300 mg Hydroxychloroquine Sulfate (Plaquenil) 200 mg PO DAILY [facility] Last Admin: 02/15/19 09:44 Dose: 200 mg Loratadine (Claritin Reditabs) 10 mg PO DAILY [facility] Last Admin: 02/15/19 09:43 Dose: 10 mg Losartan Potassium (Cozaar) 100 mg PO DAILY [facility] Last Admin: 02/15/19 09:42 Dose: 100 mg Magnesium Oxide (Magnesium Oxide) 400 mg PO TID [facility] Last Admin: 02/15/19 09:43 Dose: 400 mg Nystatin (Nystop) 0 gm TOP QID [facility] Ondansetron HCl (Zofran) 4 mg IV Q4H PRN PRN Reason: Nausea/Vomiting Polyethylene Glycol (Miralax) 17 gm PO DAILY PRN PRN Reason: Constipation Ropinirole HCl 1 mg/ (Ropinirole HCl 0.5 mg) 1.5 mg PO BID [facility] Last Admin: 02/15/19 09:52 Dose: 1.5 mg Senna/Docusate Sodium (Senna Plus) 1 tab PO BID [facility] Last Admin: 02/15/19 09:42 Dose: 1 tab Spironolactone (Aldactone) 25 mg PO DAILY [facility] Last Admin: 02/15/19 09:42 Dose: 25 mg Trazodone HCl (Trazodone) 50 mg PO BEDTIME [facility] Last Admin: 02/14/19 20:54 Dose: Not Given Discontinued Medications Hydrocodone Bitart/Acetaminophen ([place] 325-5 Mg) 1 tab PO ONETIME ONE Stop: 02/13/19 06:32 Last Admin: 02/13/19 06:44 Dose: 1 tab Hydrocodone Bitart/Acetaminophen ([place] 325-5 Mg) 1 tab PO ONETIME ONE Stop: 02/13/19 06:50 Last Admin: 02/13/19 07:26 Dose: Not Given Hydrocodone Bitart/Acetaminophen ([place] 325-5 Mg) 1 tab PO ONETIME ONE Stop: 02/13/19 14:42 Last Admin: 02/13/19 14:55 Dose: 1 tab Bisacodyl (Dulcolax) 10 mg PO ONETIME ONE Stop: 02/14/19 13:01 Last Admin: 02/14/19 13:42 Dose: 10 mg Bisacodyl (Dulcolax) 10 mg PO ONETIME ONE Stop: 02/14/19 20:01 Last Admin: 02/14/19 20:54 Dose: 10 mg Cyclosporine (Restasis) 0 each EYEBOTH BID [facility] Last Admin: 02/13/19 20:33 Dose: Not Given Diclofenac Sodium (Voltaren 1% Gel) 4 gm TOP QID [facility] Last Admin: 02/14/19 05:00 Dose: Not Given Fentanyl (Sublimaze) Confirm Administered Dose 100 mcg .ROUTE .STK-MED ONE Stop: 02/15/19 07:13 Gabapentin (Neurontin) 300 mg PO ONETIME ONE Stop: 02/13/19 14:42 Last Admin: 02/13/19 14:56 Dose: 300 mg Sodium Chloride (Normal Saline) 1,000 mls @ 100 mls/hr IV ASDIRECTED [facility] Last Infusion: 02/15/19 09:36 Dose: Infused Sodium Chloride (Normal Saline) 1,000 mls @ 125 mls/hr IV ASDIRECTED [facility] Last Admin: 02/15/19 11:26 Dose: 125 mls/hr Influenza Virus Vaccine (Pharmacy To Dose - Influenza Vaccine) 1 each IM ONETIME ONE Stop: 02/15/19 10:01 Influenza Virus Vaccine (Fluzone High-Dose 2019-20 Syringe) 180 mcg IM .ONCE ONE Stop: 02/15/19 10:01 Midazolam HCl (Versed 1 Mg/Ml) Confirm Administered Dose 2 mg .ROUTE .STK-MED ONE Stop: 02/15/19 07:13 Polyethylene Glycol (Miralax) 238 gm PO ONETIME ONE Stop: 02/14/19 17:01 Last Admin: 02/14/19 17:00 Dose: 238 gram Propofol (Diprivan 20 Ml) Confirm Administered Dose 200 mg .ROUTE .STK-MED ONE Stop: 02/15/19 07:13 Rivaroxaban (Xarelto) 15 mg PO DAILY [facility] Last Admin: 02/14/19 09:01 Dose: 15 mg Ropinirole HCl (Requip) 0.5 mg PO ONETIME ONE Stop: 02/13/19 14:42 Last Admin: 02/13/19 14:56 Dose: 0.5 mg Ropinirole HCl (Requip) 1.5 mg PO BID [facility] Last Admin: 02/14/19 20:55 Dose: 1.5 mg Ropinirole HCl (Requip) 1.5 mg PO ONETIME ONE Stop: 02/15/19 03:34 Last Admin: 02/15/19 04:00 Dose: 1.5 mg - Exam Quality Assessment: DVT Prophylaxis General: Alert, Oriented, Cooperative, Mild Distress Lungs: Normal Respiratory Effort, Decreased Breath Sounds Cardiovascular: Regular Rate, Regular Rhythm, No Murmurs GI/Abdominal Exam: Soft, Non-Tender, No Organomegaly, No Distention Extremities: Non-Tender, Pedal Edema - Problem List Review Problem List Initiated/Reviewed/Updated: Yes - My Orders Last 24 Hours: My Active Orders 02/14/19 13:00 Calcium Carbonate/Vitamin D3 [Caltrate 600+D 1500 MG-400 Units] 1 tab PO BID 02/15/19 09:00 Ropinirole [Requip] 1.5 mg PO BID cycloSPORINE [Restasis] 0 each EYEBOTH BID 02/15/19 10:00 Diclofenac Sodium [Voltaren 1% Gel] 4 gm TOP QID 02/15/19 12:19 Convert IV to Saline Lock [OM.PC] Routine 02/15/19 16:00 Nystatin [Nystop] See Dose Instructions TOP QID 02/15/19 Lunch Regular Diet [DIET] 02/16/19 05:11 HGB [HEMOGLOBIN] [HEME] AM - Plan Plan:: ASSESSMENT AND PLAN MULTIPLE PELVIC INSUFFICIENCY FRACTURES-history of significant pelvic pain causing difficulty with ambulation and transfers -Pain medication as needed -longterm placement -Calcium with vitamin D twice daily -Start Fosamax weekly SEVERE ANEMIA-hemoglobin stable following transfusion of 1 unit of red blood cells yesterday. EGD and colonoscopy showed no obvious source of active blood loss. -Recheck hemoglobin in a.m. COPD-stable with no evidence of exacerbation -Continue outpatient medications HYPERTENSION-pressures under adequate control -Continue outpatient medications MAINTENANCE ISSUES -DVT prophylaxis; anticoagulation on hold because of severe anemia and probable bleed -GI prophylaxis; not indicated -Villeda catheter; not indicated -Nutrition; regular diet -Nicotine dependence; not required CODE STATUS-FULL CODE ADMISSION STATUS-this patient will be admitted to observation status, expect no more than a one night hospital stay for evaluation and management of problems as outlined above. DISPOSITION-anticipate discharge to home after the hospital stay. PRIMARY CARE PROVIDER-Dr. Dr. Koenig
[2019-02-15] MEDS: Nystatin Topical Powder 15 GM Bottle TOP SCH ×2 (15:15→21:04)
[2019-02-15] MEDS: traZODone 50 MG Tab PO SCH ×2 (21:03→23:15)
[2019-02-16] MEDS: Acetaminophen/HYDROcodone 325-5 MG Tab PO PRN (01:09)
[2019-02-16] MEDS: Diclofenac Sodium 1% Gel 100 GM Tube TOP SCH ×2 (05:19→10:54)
[2019-02-16] MEDS: Nystatin Topical Powder 15 GM Bottle TOP SCH ×2 (05:20→10:54)
[2019-02-16 07:22] VITALS: BP 158/45; PULSE 75
[2019-02-16] MEDS: Ferrous Sulfate 325 MG Tab PO SCH ×2 (07:23→10:53)
--- NOTE | 2019-02-16 08:51 | PCM.DCSUM1 ---
Discharge Summary - Hospital Course Brief History: Ms. Obrien is a 73-year-old woman who was admitted through the emergency department with pelvic and lower back pain secondary to pelvic insufficiency fractures as well as spinal compression fractures. - Discharge Data Discharge Date: 02/16/19 Discharge Disposition: DC/Tfer to SNF 03 Condition: Fair - Referral to Home Health Primary Care Physician: Eren Koenig MD - Discharge Diagnosis/Problem(s) (1) Acute on chronic anemia SNOMED Code(s): 775863888, 602533707 ICD Code: D64.9 - ANEMIA, UNSPECIFIED Status: Acute Current Visit: Yes (2) Pelvic fracture SNOMED Code(s): 04045768 ICD Code: S32.9XXA - FRACTURE OF UNSP PARTS OF LUMBOSACRAL SPINE AND PELVIS, INIT Status: Acute Current Visit: Yes (3) Osteoporosis SNOMED Code(s): 75999774 ICD Code: M81.0 - AGE-RELATED OSTEOPOROSIS W/O CURRENT PATHOLOGICAL FRACTURE Status: Acute Current Visit: Yes (4) Peripheral edema SNOMED Code(s): 679904011 ICD Code: R60.9 - EDEMA, UNSPECIFIED Status: Acute Current Visit: No (5) Diabetes mellitus, type 2 SNOMED Code(s): 99238505 ICD Code: E11.9 - TYPE 2 DIABETES MELLITUS WITHOUT COMPLICATIONS Status: Chronic Priority: Medium Current Visit: No Qualifiers: Diabetes mellitus complication status: without complication - Patient Summary/Data Consults: Consultations 02/13/19 17:23 PT Evaluation and Treatment [CONS] Routine Please Evaluate and Treat. PT Reason for Consult: Pelvic fractures This query below is only for informational purposes and is not editable. 02/14/19 11:26 Consult to Physician [CONS] Routine Consulting Provider: Andrew Deng Call Completed to Consulting Physician: Yes Reason for Consult: Anemia, EGD and Colonoscopy in am Hospital Course: Ms. Obrien is a 73-year-old woman who was admitted to observation status through the emergency department for management of pain secondary to multiple pelvic fractures. She is had ongoing difficulty with pain in her pelvis and lower back over the past 2 weeks. It is become more severe over the past few days. MRI of the pelvis obtained in the emergency department shows insufficiency fractures of the right posterior iliac, sacral ala, left inferior pubic rami and left superior pubic rami as well as compression fractures of indeterminate age of L5 and L3. She has marked difficulty with ambulation and transfers because of pain. She is admitted for pain management and to facilitate long-term placement. On admission she was given pain medication as well as IV fluids for hydration. Follow-up morning laboratory studies were repeated and she was found to have significant anemia with a hemoglobin of 7.9. She underwent a colonoscopy prep in the following day was seen and evaluated by Dr. Deng for surgical consult. EGD showed only mild gastritis and colonoscopy showed no obvious source of blood loss. Because of insufficiency fractures he was felt very likely that she has significant osteoporosis. She was started on calcium with vitamin D twice daily as well as Fosamax 70 mg weekly. Her Eliquis was held transiently because of the anemia but was resumed at the time of discharge. She will require follow-up hemoglobin level on February 21. While at the long-term she will receive daily physical therapy as well as occupational therapy. Activity will be as tolerated and she will resume her usual diet. - Patient Instructions Diet: Low Sodium Activity: As Tolerated Other/Special Instructions: Follow-up hemoglobin level February 21. Daily physical therapy and occupational therapy while at the long-term. - Discharge Plan *PRESCRIPTION DRUG MONITORING PROGRAM REVIEWED*: Not Applicable *COPY OF PRESCRIPTION DRUG MONITORING REPORT IN PATIENT KELLY: Not Applicable Prescriptions/Med Rec: Acetaminophen/HYDROcodone [[place] 325-5 MG] 1 tab PO Q4H PRN #20 tablet PRN Reason: Pain (Moderate 4-6) Alendronate Sodium [Fosamax] 70 mg PO WEEKLY #4 tablet Calcium Carbonate/Vitamin D3 [Caltrate 600+D 1500 MG-400 Units] 1 tab PO BID # 60 tablet Home Medications: Home Meds Hydroxychloroquine Sulfate 200 mg PO DAILY 05/09/13 [History] cycloSPORINE [Restasis] 1 drop EYEBOTH BID 05/09/13 [History] Loratadine [Allergy Relief] 10 mg PO DAILY 01/07/15 [History] Losartan Potassium [Cozaar] 100 mg PO DAILY 01/07/15 [History] Albuterol [Proventil Neb Soln] 3 ml INH Q4H PRN 09/22/15 [History] Albuterol [Ventolin HFA] 2 puff INH Q6H PRN 09/22/15 [History] Furosemide 80 mg PO DAILY 09/22/15 [History] Magnesium Oxide 400 mg PO TID 05/17/16 [History] Chlorthalidone 25 mg PO DAILY 09/26/18 [History] Diclofenac Sodium [Voltaren] 4 gm TOP QID 09/26/18 [History] Gabapentin [Neurontin] 300 - 600 mg PO TID 09/26/18 [History] Loperamide [Imodium AD] 2 mg PO BID PRN 09/26/18 [History] Triamcinolone Acetonide [Kenalog 0.1% Crm] 1 applic TOP TID PRN 09/26/18 [ History] Ferrous Sulfate 325 mg PO TIDAC 12/24/18 [History] rOPINIRole [Requip] 1.5 mg PO BID 12/24/18 [History] Rivaroxaban [Xarelto] 15 mg PO DAILY 02/13/19 [History] Spironolactone [Aldactone] 25 mg PO DAILY 02/13/19 [History] traZODone HCl [Trazodone HCl] 50 mg PO BEDTIME 02/13/19 [History] Acetaminophen/HYDROcodone [[place] 325-5 MG] 1 tab PO Q4H PRN #20 tablet 02/16/19 [Rx] Alendronate Sodium [Fosamax] 70 mg PO WEEKLY #4 tablet 02/16/19 [Rx] Calcium Carbonate/Vitamin D3 [Caltrate 600+D 1500 MG-400 Units] 1 tab PO BID # 60 tablet 02/16/19 [Rx] Referrals: Eren Koenig MD [Primary Care Provider] - - Discharge Summary/Plan Comment DC Time >30 min.: No - Patient Data Vitals - Most Recent: Last Vital Signs Temp 97.2 F 02/16/19 07:18 Pulse 75 02/16/19 07:18 Resp 16 02/16/19 07:18 BP 158/45 H 02/16/19 07:18 Pulse Ox 92 L 02/16/19 07:18 Weight - Most Recent: 174 lb 8 oz I&O - Last 24 hours: Intake & Output 02/15/19 02/16/19 02/16/19 22:59 06:59 14:59 Intake Total 1313 360 Output Total 400 Balance 913 360 Lab Results - Last 24 hrs: Laboratory Results - last 24 hr 02/16/19 Range/Units 05:40 Hgb 8.7 L (12.0-15.0) g/dL Med Orders - Current: Current Medications Acetaminophen (Tylenol) 650 mg PO Q4H PRN PRN Reason: Pain (Mild 1-3)/fever Hydrocodone Bitart/Acetaminophen ([place] 325-5 Mg) 2 tab PO Q4H PRN PRN Reason: Pain (moderate 4-6) Last Admin: 02/16/19 01:09 Dose: 2 tab Albuterol (Proventil Neb Soln) 2.5 mg INH Q4H PRN PRN Reason: wheezing Albuterol (Ventolin Hfa) 0 gm INH Q6H PRN PRN Reason: Wheezing Alendronate Sodium (Fosamax) 70 mg PO Q7D@0600 [facility] Calcium Carbonate (Caltrate 600+D 1500 Mg-400 Units) 1 tab PO BID [facility] Last Admin: 02/15/19 21:03 Dose: 1 tab Chlorthalidone (Chlorthalidone) 25 mg PO DAILY [facility] Last Admin: 02/15/19 09:43 Dose: 25 mg Cyclosporine (Restasis) 0 each EYEBOTH BID [facility] Last Admin: 02/15/19 21:02 Dose: 1 drop Diclofenac Sodium (Voltaren 1% Gel) 4 gm TOP QID [facility] Last Admin: 02/16/19 05:19 Dose: 1 applic Ferrous Sulfate (Ferrous Sulfate) 325 mg PO TIDAC [facility] Last Admin: 02/16/19 07:23 Dose: 325 mg Furosemide (Lasix) 80 mg PO DAILY [facility] Last Admin: 02/15/19 09:43 Dose: 80 mg Gabapentin (Neurontin) 300 mg PO TID [facility] Last Admin: 02/15/19 21:03 Dose: 300 mg Hydroxychloroquine Sulfate (Plaquenil) 200 mg PO DAILY [facility] Last Admin: 02/15/19 09:44 Dose: 200 mg Loratadine (Claritin Reditabs) 10 mg PO DAILY [facility] Last Admin: 02/15/19 09:43 Dose: 10 mg Losartan Potassium (Cozaar) 100 mg PO DAILY [facility] Last Admin: 02/15/19 09:42 Dose: 100 mg Magnesium Oxide (Magnesium Oxide) 400 mg PO TID [facility] Last Admin: 02/15/19 21:03 Dose: 400 mg Nystatin (Nystop) 0 gm TOP QID [facility] Last Admin: 02/16/19 05:20 Dose: 1 applic Ondansetron HCl (Zofran) 4 mg IV Q4H PRN PRN Reason: Nausea/Vomiting Polyethylene Glycol (Miralax) 17 gm PO DAILY PRN PRN Reason: Constipation Ropinirole HCl 1 mg/ (Ropinirole HCl 0.5 mg) 1.5 mg PO BID [facility] Last Admin: 02/15/19 21:03 Dose: 1.5 mg Senna/Docusate Sodium (Senna Plus) 1 tab PO BID [facility] Last Admin: 02/15/19 21:03 Dose: 1 tab Spironolactone (Aldactone) 25 mg PO DAILY [facility] Last Admin: 02/15/19 09:42 Dose: 25 mg Trazodone HCl (Trazodone) 50 mg PO BEDTIME [facility] Last Admin: 02/15/19 23:15 Dose: 50 mg Discontinued Medications Hydrocodone Bitart/Acetaminophen ([place] 325-5 Mg) 1 tab PO ONETIME ONE Stop: 02/13/19 06:32 Last Admin: 02/13/19 06:44 Dose: 1 tab Hydrocodone Bitart/Acetaminophen ([place] 325-5 Mg) 1 tab PO ONETIME ONE Stop: 02/13/19 06:50 Last Admin: 02/13/19 07:26 Dose: Not Given Hydrocodone Bitart/Acetaminophen ([place] 325-5 Mg) 1 tab PO ONETIME ONE Stop: 02/13/19 14:42 Last Admin: 02/13/19 14:55 Dose: 1 tab Bisacodyl (Dulcolax) 10 mg PO ONETIME ONE Stop: 02/14/19 13:01 Last Admin: 02/14/19 13:42 Dose: 10 mg Bisacodyl (Dulcolax) 10 mg PO ONETIME ONE Stop: 02/14/19 20:01 Last Admin: 02/14/19 20:54 Dose: 10 mg Cyclosporine (Restasis) 0 each EYEBOTH BID [facility] Last Admin: 02/13/19 20:33 Dose: Not Given Diclofenac Sodium (Voltaren 1% Gel) 4 gm TOP QID [facility] Last Admin: 02/14/19 05:00 Dose: Not Given Fentanyl (Sublimaze) Confirm Administered Dose 100 mcg .ROUTE .STK-MED ONE Stop: 02/15/19 07:13 Gabapentin (Neurontin) 300 mg PO ONETIME ONE Stop: 02/13/19 14:42 Last Admin: 02/13/19 14:56 Dose: 300 mg Sodium Chloride (Normal Saline) 1,000 mls @ 100 mls/hr IV ASDIRECTED [facility] Last Infusion: 02/15/19 09:36 Dose: Infused Sodium Chloride (Normal Saline) 1,000 mls @ 125 mls/hr IV ASDIRECTED [facility] Last Admin: 02/15/19 11:26 Dose: 125 mls/hr Influenza Virus Vaccine (Pharmacy To Dose - Influenza Vaccine) 1 each IM ONETIME ONE Stop: 02/15/19 10:01 Influenza Virus Vaccine (Fluzone High-Dose 2018-20 Syringe) 180 mcg IM .ONCE ONE Stop: 02/15/19 10:01 Last Admin: 02/15/19 14:29 Dose: 180 mcg Midazolam HCl (Versed 1 Mg/Ml) Confirm Administered Dose 2 mg .ROUTE .STK-MED ONE Stop: 02/15/19 07:13 Polyethylene Glycol (Miralax) 238 gm PO ONETIME ONE Stop: 02/14/19 17:01 Last Admin: 02/14/19 17:00 Dose: 238 gram Propofol (Diprivan 20 Ml) Confirm Administered Dose 200 mg .ROUTE .STK-MED ONE Stop: 02/15/19 07:13 Rivaroxaban (Xarelto) 15 mg PO DAILY [facility] Last Admin: 02/14/19 09:01 Dose: 15 mg Ropinirole HCl (Requip) 0.5 mg PO ONETIME ONE Stop: 02/13/19 14:42 Last Admin: 02/13/19 14:56 Dose: 0.5 mg Ropinirole HCl (Requip) 1.5 mg PO BID [facility] Last Admin: 02/14/19 20:55 Dose: 1.5 mg Ropinirole HCl (Requip) 1.5 mg PO ONETIME ONE Stop: 02/15/19 03:34 Last Admin: 02/15/19 04:00 Dose: 1.5 mg Ropinirole HCl (Requip) 1.5 mg PO ONETIME ONE Stop: 02/16/19 23:13 Ropinirole HCl (Requip) 1.5 mg PO ONETIME ONE Stop: 02/15/19 23:13 Last Admin: 02/15/19 23:12 Dose: 1.5 mg - Exam Quality Assessment: Reports: DVT Prophylaxis General: Reports: Alert, Oriented, Cooperative, Mild Distress Lungs: Reports: Clear to Auscultation, Normal Respiratory Effort Cardiovascular: Reports: Regular Rate, Regular Rhythm, No Murmurs GI/Abdominal Exam: Soft, Non-Tender, No Organomegaly, No Distention Extremities: Pedal Edema, Other (Pelvic and low back pain) Skin: Reports: Warm, Dry *Q Meaningful Use (DIS) - VTE *Q VTE Pharmacological Contraindications *Q: Not Candidate LT Anticoag
[2019-02-16] MEDS: Chlorthalidone 25 MG Tab PO SCH (09:25)
[2019-02-16] MEDS: Magnesium Oxide 400 MG Tab PO SCH (09:25)
[2019-02-16] MEDS: Gabapentin 300 MG Cap PO SCH (09:25)
[2019-02-16] MEDS: Furosemide 40 MG Tab PO SCH (09:26)
[2019-02-16] MEDS: Spironolactone 25 MG Tab PO SCH (09:26)
[2019-02-16] MEDS: Loratadine 10 MG Tab.DIS PO SCH (09:27)
[2019-02-16] MEDS: Losartan 50 MG Tab PO SCH (09:28)
[2019-02-16] MEDS: Calcium Carbonate/Vitamin D3 1500 MG-400 Units Tab PO SCH (09:29)
[2019-02-16] MEDS: Hydroxychloroquine 200 MG Tab PO SCH (09:29)
[2019-02-16] MEDS: cycloSPORINE Ophth Drops U/D Box of 30 EYEBOTH SCH (09:30)
[2019-02-16] MEDS: ROPINIROLE PO SCH ×2 (10:53)
[2019-02-16] MEDS ORDERED: rOPINIRole 1 MG Tab PO ONE (23:12)
--- NOTE | 2019-02-18 14:13 | OR ---
DATE OF PROCEDURE: 02/15/2019 SURGEON: Andrew Deng MD PROCEDURE: 1. Esophagogastroduodenoscopy. 2. Colonoscopy. PREOPERATIVE DIAGNOSIS: Anemia. POSTOPERATIVE DIAGNOSIS: Anemia. RISKS: Risks, benefits, alternatives, and limitations including, but not limited to infection, bleeding, and perforation were explained to the patient, who wished to proceed. PROCEDURE IN DETAIL: The patient was placed in left lateral decubitus position. The EGD scope was introduced and advanced atraumatically to the second part of the duodenum. No evidence of duodenitis or ulceration. The patient did have some gastritis, which was described as very mild, though a large amount of volume noted with this. On retroflexion, no abnormalities were noted. The GE junction was also normal. The esophagus was normal without any evidence of blood or other etiology. Digital rectal exam was performed next. The scope was introduced and advanced atraumatically to the ileocecal valve. The scope was brought back through the ascending, transverse, descending colon, and retroflexed. No evidence of old or new blood. No masses. No polyps. No diverticulosis. No other abnormalities were noted. The patient tolerated the procedure well. Andrew Deng MD /[id number]
[2019-02-22] MEDS ORDERED: Alendronate 70 MG Tab PO SCH (06:00)
== END 2019-02-16 11:05 | DRG 544 ==
LOC: JP.ED 06:00 → JP.MS 16:16 → OBSVTOIN 02-14 08:21
PROVIDERS: ADMIT Hospitalist; ATTEND Hospitalist
PROC: 30233N1 Transfusion of Nonautologous Red Blood Cells into Peripheral Vein, Percutaneous Approach (ICD-10-PCS; principal; 2019-02-15)
DX: M84.454A Pathological fracture, pelvis, initial encounter for fracture (principal); M81.0 Age-related osteoporosis without current pathological fracture; D64.9 Anemia, unspecified; Z87.891 Personal history of nicotine dependence; R60.9 Edema, unspecified; H40.9 Unspecified glaucoma; H04.123 Dry eye syndrome of bilateral lacrimal glands; K29.70 Gastritis, unspecified, without bleeding; H54.7 Unspecified visual loss; I25.10 Atherosclerotic heart disease of native coronary artery without angina pectoris; E78.00 Pure hypercholesterolemia, unspecified; I10 Essential (primary) hypertension; I45.10 Unspecified right bundle-branch block; M32.9 Systemic lupus erythematosus, unspecified; J44.9 Chronic obstructive pulmonary disease, unspecified; Z79.01 Long term (current) use of anticoagulants; Z79.810 Long term (current) use of selective estrogen receptor modulators (SERMs); I27.20 Pulmonary hypertension, unspecified; K52.9 Noninfective gastroenteritis and colitis, unspecified; E11.40 Type 2 diabetes mellitus with diabetic neuropathy, unspecified; M19.90 Unspecified osteoarthritis, unspecified site; G89.29 Other chronic pain; M54.9 Dorsalgia, unspecified; E66.9 Obesity, unspecified; I87.2 Venous insufficiency (chronic) (peripheral); Z79.899 Other long term (current) drug therapy; Z88.8 Allergy status to other drugs, medicaments and biological substances; Z68.31 Body mass index [BMI] 31.0-31.9, adult
CPT/HCPCS: 36415; 73502; 73562; 73700; 73721; 80048; 85025; 86850; 86900; 86901; 86920; 86922; 99285; A9270 ×10; 36430; 85018; 90662; 97162-GP; 97530-GP; G0008; G0378; J2250; J2704; J3010; J7030; P9016

== ENCOUNTER 2019-03-27 23:35 | Inpatient (IN) | payer MEDICARE ==
[2019-03-28] MEDS ORDERED: Albuterol/Ipratropium 3.0-0.5 MG/3 ML Neb Soln NEB ONE (00:14)
--- NOTE | 2019-03-28 00:21 | EDM.PDOC ---
ED HPI GENERAL MEDICAL PROBLEM - General Chief Complaint: General Stated Complaint: [facility] Time Seen by Provider: 03/28/19 00:00 Source of Information: Reports: Patient, EMS, Family History Limitations: Reports: No Limitations - History of Present Illness INITIAL COMMENTS - FREE TEXT/NARRATIVE: 74-year-old female is been living independently for the past 2 weeks after being in a [facility] for a prolonged period of time for pelvic fractures. She has emphysema and has nebulizers and metered-dose inhalers but does not use them. She is a non-smoker. For the last 3 days she has had increased weakness and periods of confusion. She has not fallen, no new injuries, no diarrhea or nausea or vomiting. She has no new cough or fevers. No urinary symptoms. Her only complaint is weakness. Tonight when she talked to her granddaughter she felt she could not get out of bed to get to the bathroom because she was too weak so the ambulance was called. She did however get up to go to the bathroom and did go. Onset: Gradual Duration: Day(s): (Last 3 to 4 days have been worse) Location: Reports: Generalized Associated Symptoms: Reports: Confusion, Malaise, Shortness of Breath, Weakness. Denies: Chest Pain, Diaphoresis, Fever/Chills, Nausea/Vomiting back Pain Score (Numeric/FACES): 5 - Related Data Allergies Allergy/AdvReac Type Severity Reaction Status Date / Time hydrochlorothiazide Allergy Other Verified 03/28/19 02:36 [From Dyazide] oxybutynin Allergy Other Verified 03/28/19 02:36 [id number] Reductase Allergy Other Verified 03/28/19 02:36 Inhibitor triamterene [From Dyazide] Allergy Other Verified 03/28/19 02:36 budesonide [From Symbicort] AdvReac Nausea and Verified 03/28/19 02:36 Vomiting formoterol fumarate AdvReac Nausea and Verified 03/28/19 02:36 [From Symbicort] Vomiting pregabalin [From Lyrica] AdvReac Headache Verified 03/28/19 02:36 tizanidine AdvReac Nausea Verified 03/28/19 02:36 Home Meds: Home Meds Hydroxychloroquine Sulfate 200 mg PO DAILY 05/09/13 [History] cycloSPORINE [Restasis] 1 drop EYEBOTH BID 05/09/13 [History] Loratadine [Allergy Relief] 10 mg PO DAILY 01/07/15 [History] Losartan Potassium [Cozaar] 100 mg PO DAILY 01/07/15 [History] Albuterol [Proventil Neb Soln] 3 ml INH Q4H PRN 09/22/15 [History] Albuterol [Ventolin HFA] 2 puff INH Q6H PRN 09/22/15 [History] Furosemide 80 mg PO DAILY 09/22/15 [History] Magnesium Oxide 400 mg PO TID 05/17/16 [History] Chlorthalidone 25 mg PO DAILY 09/26/18 [History] Diclofenac Sodium [Voltaren] 4 gm TOP QID 09/26/18 [History] Gabapentin [Neurontin] 300 - 600 mg PO TID 09/26/18 [History] Loperamide [Imodium AD] 2 mg PO BID PRN 09/26/18 [History] Triamcinolone Acetonide [Kenalog 0.1% Crm] 1 applic TOP TID PRN 09/26/18 [ History] Ferrous Sulfate 325 mg PO TIDAC 12/24/18 [History] rOPINIRole [Requip] 1.5 mg PO BID 12/24/18 [History] Rivaroxaban [Xarelto] 15 mg PO DAILY 02/13/19 [History] Spironolactone [Aldactone] 25 mg PO DAILY 02/13/19 [History] traZODone HCl [Trazodone HCl] 50 mg PO BEDTIME 02/13/19 [History] Acetaminophen/HYDROcodone [[place] 325-5 MG] 1 tab PO Q4H PRN #20 tablet 02/16/19 [Rx] Calcium Carbonate/Vitamin D3 [Caltrate 600+D 1500 MG-400 Units] 1 tab PO BID # 60 tablet 02/16/19 [Rx] Past Medical History HEENT History: Reports: Glaucoma, Impaired Vision Other HEENT History: Otitis externa of right ear, bilateral dry eyes Cardiovascular History: Reports: CAD, Heart Murmur, High Cholesterol, Hypertension, SOB on Exertion Other Cardiovascular History: RBBB,ventricular diastolic dysfunction Respiratory History: Reports: Asthma, COPD, Other (See Below) Other Respiratory History: pulmonary hypertension. Uses O2 at night. Gastrointestinal History: Reports: Chronic Diarrhea Genitourinary History: Reports: Diabetic Nephropathy, Urinary Incontinence [employer] History: Reports: Musculoskeletal History: Reports: Arthritis, Back Pain, Chronic, Fracture, Osteoporosis Other Musculoskeletal History: fx ankle Endocrine/Metabolic History: Reports: Diabetes, Type II, Obesity/BMI 30+, Osteoporosis Other Endocrine/Metabolic History: lupus Hematologic History: Reports: Anticoagulation Therapy Immunologic History: Reports: SLE Other Immunologic History: lupus anticoagulant positive Dermatologic History: Reports: Venous Stasis Dermatitis - Infectious Disease History Infectious Disease History: Reports: Chicken Pox - Past Surgical History Head Surgeries/Procedures: Reports: None HEENT Surgical History: Reports: None Cardiovascular Surgical History: Reports: None Respiratory Surgical History: Reports: None GI Surgical History: Reports: None Female Surgical History: Reports: Breast Biopsy Endocrine Surgical History: Reports: None Musculoskeletal Surgical History: Reports: Other (See Below) Other Musculoskeletal Surgeries/Procedures:: left ankle repair Dermatological Surgical History: Reports: Skin Biopsy Social & Family History - Family History Family Medical History: Noncontributory - Caffeine Use Caffeine Use: Reports: Coffee Other Caffeine Use: 3 cups coffee daily, 1 can pop dailty - Recreational Drug Use Recreational Drug Use: No - Living Situation & Occupation Living situation: Reports: Single, Alone (lives alone in her home in [place], [place]., 2 children; son Palmer,who visits on weekends, Daughter two years ago of overdose. 3 grandchildren.) ED ROS GENERAL - Review of Systems Review Of Systems: See Below Constitutional: Reports: Malaise, Weakness. Denies: Fever, Chills HEENT: Denies: Throat Pain Respiratory: Reports: Shortness of Breath, Wheezing. Denies: Cough Cardiovascular: Denies: Chest Pain, Palpitations GI/Abdominal: Denies: Nausea, Vomiting Skin: Reports: Erythema (Chronic erythema of the lower extremities has improved since being in the [facility]) Neurological: Reports: Confusion, Weakness, Change in Speech (2 or 3 episodes in the last 2 days where her speech was slurred). Denies: Dizziness, Headache ED EXAM, GENERAL - Physical Exam Exam: See Below Exam Limited By: No Limitations General Appearance: Alert, No Apparent Distress Eye Exam: Bilateral Eye: EOMI, Other (Pale conjunctiva) Throat/Mouth: Normal Inspection Head: Atraumatic Neck: Normal Inspection, Non-Tender Respiratory/Chest: No Respiratory Distress, Wheezing (Diffuse expiratory wheezes are heard but no rales or rhonchi, no decreased breath sounds at the bases) Cardiovascular: Regular Rate, Rhythm, Bradycardia GI/Abdominal: Normal Bowel Sounds, Soft, Non-Tender Rectal (Female) Exam: Black Stool, Tenderness. No: Mass Extremities: Other (She has a trace of symmetric edema over the lower extremities, some erythema and chronic skin changes at the ankles) Neurological: Alert, Oriented, No Motor/Sensory Deficits (She has global weakness but no asymmetry to strength of the extremities or face) Psychiatric: Flat Affect Skin Exam: Warm, Dry Course - Vital Signs Last Recorded V/S: Last Vital Signs Temp 98.4 F 03/28/19 04:48 Pulse 52 L 03/28/19 04:48 Resp 14 03/28/19 04:48 BP 120/31 L 03/28/19 04:48 Pulse Ox 96 03/28/19 04:48 - Orders/Labs/Meds Orders: Active Orders 24 hr Category Date Time Status RED BLOOD CELLS LP [BBK] Stat Lab 03/28/19 00:25 Results TYPE AND SCREEN [BBK] Stat Lab 03/28/19 00:25 Results Medication Orders Acetaminophen (Tylenol) 650 mg PO Q4H PRN PRN Reason: Pain (Mild 1-3)/fever Hydrocodone Bitart/Acetaminophen ([place] 325-5 Mg) 1 tab PO Q4H PRN PRN Reason: Pain (moderate 4-6) Albuterol (Proventil Neb Soln) 2.5 mg NEB Q4H PRN PRN Reason: Shortness Of Breath/wheezing Albuterol/Ipratropium (Duoneb 3.0-0.5 Mg/3 Ml) 3 ml NEB QID PRN PRN Reason: Shortness Of Breath/wheezing Chlorthalidone (Chlorthalidone) 25 mg PO DAILY [facility] Docusate Sodium (Colace) 100 mg PO BID PRN PRN Reason: Constipation Furosemide (Lasix) 80 mg PO DAILY [facility] Gabapentin (Neurontin) 300 mg PO TID [facility] Sodium Chloride (Normal Saline) 1,000 mls @ 75 mls/hr IV ASDIRECTED [facility] Losartan Potassium (Cozaar) 100 mg PO DAILY [facility] Magnesium Oxide (Magnesium Oxide) 400 mg PO TID [facility] Morphine Sulfate (Morphine) 2 mg IVPUSH Q2H PRN PRN Reason: Pain (severe 7-10) Last Admin: 03/28/19 03:32 Dose: 2 mg Non-Formulary Medication (Cyclosporine [Restasis]) 1 drop EYEBOTH BID [facility] Ondansetron HCl (Zofran Odt) 4 mg PO Q6H PRN PRN Reason: Nausea able to take PO Ondansetron HCl (Zofran) 4 mg IV Q4H PRN PRN Reason: Nausea/Vomiting Pantoprazole Sodium (Protonix Iv) 40 mg IV DAILY [facility] Ropinirole HCl (Requip) 1.5 mg PO BID [facility] Spironolactone (Aldactone) 25 mg PO DAILY [facility] Trazodone HCl (Trazodone) 50 mg PO BEDTIME [facility] Triamcinolone Acetonide (Triamcinolone Acetonide 0.1% Crm) 0 gm TOP TID PRN PRN Reason: Rash Labs: Laboratory Tests 03/28/19 03/28/19 03/28/19 Range/Units 00:24 00:25 00:25 WBC 5.2 (4.5-11.0) K/uL RBC 1.64 L (3.30-5.50) M/uL Hgb 5.2 L* D (12.0-15.0) g/dL Hct 17.8 L (36.0-48.0) % MCV 109 H (80-98) fL MCH 32 H (27-31) pg MCHC 29 L (32-36) % Plt Count 138 L (150-400) K/uL Neut % (Auto) 77 H (36-66) % Lymph % (Auto) 17 L (24-44) % [place] % (Auto) 5 (2-6) % Eos % (Auto) 1 L (2-4) % Baso % (Auto) 0 (0-1) % Sodium 138 L (140-148) mmol/L Potassium 4.4 (3.6-5.2) mmol/L Chloride 103 (100-108) mmol/L Carbon Dioxide 30 (21-32) mmol/L Anion Gap 9.4 (5.0-14.0) mmol/L BUN 105 H* D (7-18) mg/dL Creatinine 2.1 H (0.6-1.0) mg/dL Est Cr Clr Drug Dosing 19.15 mL/min Estimated GFR (MDRD) 23 L (>60) Glucose 145 H (74-106) mg/dL Calcium 8.2 L (8.5-10.1) mg/dL Total Bilirubin 0.2 D (0.2-1.0) mg/dL AST 31 (15-37) U/L ALT 18 (12-78) U/L Alkaline Phosphatase 80 (46-116) U/L Troponin I 0.060 H* (0.000-0.056) ng/mL Total Protein 6.3 L (6.4-8.2) g/dL Albumin 2.3 L (3.4-5.0) g/dL Globulin 4.0 H (2.3-3.5) g/dL Albumin/Globulin Ratio 0.6 L (1.2-2.2) Urine Color Yellow (YELLOW) Urine Appearance Clear (CLEAR) Urine pH 7.0 (5.0-8.0) Ur Specific [place] 1.015 (1.008-1.030) Urine Protein Negative (NEGATIVE) mg/dL Urine Glucose (UA) Negative (NEGATIVE) mg/dL Urine Ketones Negative (NEGATIVE) mg/dL Urine Occult Blood Negative (NEGATIVE) Urine Nitrite Negative (NEGATIVE) Urine Bilirubin Negative (NEGATIVE) Urine Urobilinogen 0.2 (0.2-1.0) EU/dL Ur Leukocyte Esterase Negative (NEGATIVE) Urine RBC 0-5 (0-5) Urine WBC 0-5 (0-5) Ur Epithelial Cells Few Amorphous Sediment Not seen Urine Bacteria Rare Urine Mucus Not seen Blood Type Gel Antibody Screen Crossmatch 03/28/19 Range/Units 00:25 WBC (4.5-11.0) K/uL RBC (3.30-5.50) M/uL Hgb (12.0-15.0) g/dL Hct (36.0-48.0) % MCV (80-98) fL MCH (27-31) pg MCHC (32-36) % Plt Count (150-400) K/uL Neut % (Auto) (36-66) % Lymph % (Auto) (24-44) % [place] % (Auto) (2-6) % Eos % (Auto) (2-4) % Baso % (Auto) (0-1) % Sodium (140-148) mmol/L Potassium (3.6-5.2) mmol/L Chloride (100-108) mmol/L Carbon Dioxide (21-32) mmol/L Anion Gap (5.0-14.0) mmol/L BUN (7-18) mg/dL Creatinine (0.6-1.0) mg/dL Est Cr Clr Drug Dosing mL/min Estimated GFR (MDRD) (>60) Glucose (74-106) mg/dL Calcium (8.5-10.1) mg/dL Total Bilirubin (0.2-1.0) mg/dL AST (15-37) U/L ALT (12-78) U/L Alkaline Phosphatase (46-116) U/L Troponin I (0.000-0.056) ng/mL Total Protein (6.4-8.2) g/dL Albumin (3.4-5.0) g/dL Globulin (2.3-3.5) g/dL Albumin/Globulin Ratio (1.2-2.2) Urine Color (YELLOW) Urine Appearance (CLEAR) Urine pH (5.0-8.0) Ur Specific [place] (1.008-1.030) Urine Protein (NEGATIVE) mg/dL Urine Glucose (UA) (NEGATIVE) mg/dL Urine Ketones (NEGATIVE) mg/dL Urine Occult Blood (NEGATIVE) Urine Nitrite (NEGATIVE) Urine Bilirubin (NEGATIVE) Urine Urobilinogen (0.2-1.0) EU/dL Ur Leukocyte Esterase (NEGATIVE) Urine RBC (0-5) Urine WBC (0-5) Ur Epithelial Cells Amorphous Sediment Urine Bacteria Urine Mucus Blood Type A POSITIVE Gel Antibody Screen Negative Crossmatch See Detail Meds: Medications Generic Name Dose Route Start Last Admin Trade Name Freq PRN Reason Stop Dose Admin Acetaminophen 650 mg 03/28/19 01:48 Tylenol PO Q4H PRN Pain (Mild 1-3)/fever Hydrocodone Bitart/Acetaminophen 1 tab 03/28/19 01:48 [place] 325-5 Mg PO Q4H PRN Pain (moderate 4-6) Albuterol 2.5 mg 03/28/19 01:48 Proventil Neb Soln NEB Q4H PRN Shortness Of Breath/wheezing Albuterol/Ipratropium 3 ml 03/28/19 01:48 Duoneb 3.0-0.5 Mg/3 Ml NEB QID PRN Shortness Of Breath/wheezing Chlorthalidone 25 mg 03/28/19 09:00 Chlorthalidone PO DAILY [facility] Docusate Sodium 100 mg 03/28/19 01:48 Colace PO BID PRN Constipation Furosemide 80 mg 03/28/19 09:00 Lasix PO DAILY [facility] Gabapentin 300 mg 03/28/19 09:00 Neurontin PO TID [facility] Sodium Chloride 1,000 mls @ 75 mls/hr 03/28/19 02:00 Normal Saline IV ASDIRECTED [facility] Losartan Potassium 100 mg 03/28/19 09:00 Cozaar PO DAILY [facility] Magnesium Oxide 400 mg 03/28/19 09:00 Magnesium Oxide PO TID [facility] Morphine Sulfate 2 mg 03/28/19 01:48 03/28/19 03:32 Morphine IVPUSH 2 mg Q2H PRN Administration Pain (severe 7-10) Non-Formulary Medication 1 drop 03/28/19 09:00 Cyclosporine [Restasis] EYEBOTH BID [facility] Ondansetron HCl 4 mg 03/28/19 01:48 Zofran Odt PO Q6H PRN Nausea able to take PO Ondansetron HCl 4 mg 03/28/19 01:48 Zofran IV Q4H PRN Nausea/Vomiting Pantoprazole Sodium 40 mg 03/28/19 09:00 Protonix Iv IV DAILY [facility] Ropinirole HCl 1.5 mg 03/28/19 09:00 Requip PO BID [facility] Spironolactone 25 mg 03/28/19 09:00 Aldactone PO DAILY [facility] Trazodone HCl 50 mg 03/28/19 21:00 Trazodone PO BEDTIME [facility] Triamcinolone Acetonide 0 gm 03/28/19 01:55 Triamcinolone Acetonide 0.1% Crm TOP TID PRN Rash Discontinued Medications Generic Name Dose Route Start Last Admin Trade Name Freq PRN Reason Stop Dose Admin Hydrocodone Bitart/Acetaminophen 1 tab 03/28/19 01:37 03/28/19 01:42 [place] 325-5 Mg PO 03/28/19 01:38 1 tab ONETIME ONE Administration Albuterol/Ipratropium 3 ml 03/28/19 00:14 03/28/19 00:24 Duoneb 3.0-0.5 Mg/3 Ml NEB 03/28/19 00:15 3 ml ONETIME ONE Administration Pantoprazole Sodium 40 mg 03/28/19 00:39 03/28/19 00:47 Protonix Iv IVPUSH 03/28/19 00:40 40 mg ONETIME ONE Administration - Re-Assessments/Exams Free Text/Narrative Re-Assessment/Exam: 03/28/19 00:20 O2 saturations are in the upper 90s with nasal cannula, however if she breathes through her mouth it tends to drop to the upper 80s to low 90s. A 1 view chest x-ray will be obtained after a DuoNeb was given. Also CBC CMP troponin and a mini cath UA. 03/28/19 00:39 Chest x-ray showed no considerable congestive heart failure or infiltrate. Hemoglobin was 5.2. 03/28/19 01:02 BUN 105, troponin 0 0.06. Hemoccult positive. Departure - Departure Time of Disposition: 02:42 Disposition: Admitted As Inpatient 68 Clinical Impression: Blood loss anemia, Weakness GI bleed Qualifiers: GI bleed type/associated pathology: gastritis Qualified Code(s): K92.1 - Melena - Discharge Information Sepsis Event Note - Evaluation Sepsis Screening Result: No Definite Risk - Focused Exam Vital Signs: Vital Signs Temp Pulse Resp BP Pulse Ox 03/28/19 01:08 97.4 F 61 22 H 120/53 L 95 03/27/19 23:40 97.4 F 65 24 H 135/39 L 99 Date Exam was Performed: 03/28/19 Time Exam was Performed: 04:53 - My Orders Last 24 Hours: My Active Orders 03/28/19 00:25 RED BLOOD CELLS LP [BBK] Stat TYPE AND SCREEN [BBK] Stat - Assessment/Plan Last 24 Hours: My Active Orders 03/28/19 00:25 RED BLOOD CELLS LP [BBK] Stat TYPE AND SCREEN [BBK] Stat
[2019-03-28] MEDS ORDERED: Pantoprazole 40 MG Vial IVPUSH ONE (00:39)
--- NOTE | 2019-03-28 00:42 | CRLCR ---
INDICATION: Hypoxia. Weakness. COMPARISON: 05/23/2018. FINDINGS/IMPRESSION: No acute pulmonary infiltrates or other acute intrathoracic findings. No pleural effusions. Stable cardiac prominence likely due to AP technique. No acute osseous findings. Dictated by Juan Bain MD @ 03/28/2019 12:41:49 AM Dictated by: Juan Bain MD @ 03/28/2019 00:42:04 (Electronically Signed)
[2019-03-28] MEDS ORDERED: Acetaminophen/HYDROcodone 325-5 MG Tab PO ONE (01:37)
[2019-03-28] MEDS ORDERED: Ondansetron 4 MG/2 ML SDV IV PRN (01:48)
[2019-03-28] MEDS ORDERED: Albuterol/Ipratropium 3.0-0.5 MG/3 ML Neb Soln NEB PRN (01:48)
[2019-03-28] MEDS ORDERED: Ondansetron 4 MG Tab.DIS PO PRN (01:48)
[2019-03-28] MEDS ORDERED: Docusate Sodium 100 MG Cap PO PRN (01:48)
[2019-03-28] MEDS ORDERED: Acetaminophen 325 MG Tab PO PRN (01:48)
[2019-03-28] MEDS ORDERED: Morphine 2 MG/ML Syringe IVPUSH PRN (01:48)
[2019-03-28] MEDS ORDERED: Albuterol 0.083% 2.5 MG/3 ML Neb Soln NEB PRN (01:48)
[2019-03-28] MEDS ORDERED: Triamcinolone Acetonide 0.1% Crm 15 GM Tube TOP PRN (01:55)
--- NOTE | 2019-03-28 02:02 | PCM.HP.2 ---
H&P History of Present Illness - General Date of Service: 03/27/19 Admit Problem/Dx: Admission Diagnosis/Problem Admission Diagnosis/Problem Anemia due to gastrointestinal blood loss Source of Information: Patient, Family (Daughter in law and Grand daughter), Provider History Limitations: Reports: No Limitations - History of Present Illness Initial Comments - Free Text/Narative: 74-year-old female is been living independently for the past 2 weeks after being in a halfway for a prolonged period of time for pelvic fractures. She has emphysema and has nebulizers and metered-dose inhalers but does not use them. She is a non-smoker. For the last 3 days she has had increased weakness and periods of confusion. She has not fallen, no new injuries, no diarrhea or nausea or vomiting. She has no new cough or fevers. No urinary symptoms. Her only complaint is weakness. Tonight when she talked her granddaughter she felt she could not get out of bed to get to the bathroom because she was too weak so the ambulance was called. She did however get up to go to the bathroom and did go. Onset: Gradual O2 saturations are in the upper 90s with nasal cannula, however if she breathes through her mouth it tends to drop to the upper 80s to low 90s. A 1 view chest x-ray will be obtained after a DuoNeb was given. Also CBC CMP troponin and a mini cath UA. 03/28/19 00:39 Chest x-ray showed no considerable congestive heart failure or infiltrate. Hemoglobin was 5.2. 03/28/19 01:02 BUN 105, troponin 0 0.06. Hemoccult positive. plan to admit to Med-Surg for further care and treatment. Family is in agreement. Onset of Symptoms: Reports: Gradual (reports dark to black stool for months. ) Duration of Symptoms: Reports: Getting Worse (past 3 days increasing weakness, near syncope.) Location: Reports: Generalized Quality: Reports: Same as Previous Episode Severity: Severe Improves with: Reports: None Worsens with: Reports: None Context: Reports: Other (chronic anemia) Associated Symptoms: Reports: Shortness of Breath, Weakness - Related Data Allergies/Adverse Reactions: Allergies Allergy/AdvReac Type Severity Reaction Status Date / Time hydrochlorothiazide Allergy Other Verified 03/27/19 23:44 [From Dyazide] oxybutynin Allergy Other Verified 03/27/19 23:44 Nosvomw-Bpx-Iva Reductase Allergy Other Verified 03/27/19 23:44 Inhibitor triamterene [From Dyazide] Allergy Other Verified 03/27/19 23:44 budesonide [From Symbicort] AdvReac Nausea and Verified 03/27/19 23:44 Vomiting formoterol fumarate AdvReac Nausea and Verified 03/27/19 23:44 [From Symbicort] Vomiting pregabalin [From Lyrica] AdvReac Headache Verified 03/27/19 23:44 tizanidine AdvReac Nausea Verified 03/27/19 23:44 Home Medications: Home Meds Hydroxychloroquine Sulfate 200 mg PO DAILY 05/09/13 [History] cycloSPORINE [Restasis] 1 drop EYEBOTH BID 05/09/13 [History] Loratadine [Allergy Relief] 10 mg PO DAILY 01/07/15 [History] Losartan Potassium [Cozaar] 100 mg PO DAILY 01/07/15 [History] Albuterol [Proventil Neb Soln] 3 ml INH Q4H PRN 09/22/15 [History] Albuterol [Ventolin HFA] 2 puff INH Q6H PRN 09/22/15 [History] Furosemide 80 mg PO DAILY 09/22/15 [History] Magnesium Oxide 400 mg PO TID 05/17/16 [History] Chlorthalidone 25 mg PO DAILY 09/26/18 [History] Diclofenac Sodium [Voltaren] 4 gm TOP QID 09/26/18 [History] Gabapentin [Neurontin] 300 - 600 mg PO TID 09/26/18 [History] Loperamide [Imodium AD] 2 mg PO BID PRN 09/26/18 [History] Triamcinolone Acetonide [Kenalog 0.1% Crm] 1 applic TOP TID PRN 09/26/18 [ History] Ferrous Sulfate 325 mg PO TIDAC 12/24/18 [History] rOPINIRole [Requip] 1.5 mg PO BID 12/24/18 [History] Rivaroxaban [Xarelto] 15 mg PO DAILY 02/13/19 [History] Spironolactone [Aldactone] 25 mg PO DAILY 02/13/19 [History] traZODone HCl [Trazodone HCl] 50 mg PO BEDTIME 02/13/19 [History] Acetaminophen/HYDROcodone [Tunica 325-5 MG] 1 tab PO Q4H PRN #20 tablet 02/16/19 [Rx] Calcium Carbonate/Vitamin D3 [Caltrate 600+D 1500 MG-400 Units] 1 tab PO BID # 60 tablet 02/16/19 [Rx] Past Medical History HEENT History: Reports: Glaucoma, Impaired Vision Other HEENT History: Otitis externa of right ear, bilateral dry eyes Cardiovascular History: Reports: CAD, Heart Murmur, High Cholesterol, Hypertension, SOB on Exertion Other Cardiovascular History: RBBB,ventricular diastolic dysfunction Respiratory History: Reports: Asthma, COPD, Other (See Below) Other Respiratory History: pulmonary hypertension. Uses O2 at night. 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 P[employer]ER History: Reports: Musculoskeletal History: Reports: Arthritis, Back Pain, Chronic, Fracture, Osteoporosis Other Musculoskeletal History: fx ankle Endocrine/Metabolic History: Reports: Diabetes, Type II, Obesity/BMI 30+, Osteoporosis Other Endocrine/Metabolic History: lupus Hematologic History: Reports: Anticoagulation Therapy Immunologic History: Reports: SLE Other Immunologic History: lupus anticoagulant positive Dermatologic History: Reports: Venous Stasis Dermatitis - Infectious Disease History Infectious Disease History: Reports: Chicken Pox - Past Surgical History Head Surgeries/Procedures: Reports: None HEENT Surgical History: Reports: None Cardiovascular Surgical History: Reports: None Respiratory Surgical History: Reports: None GI Surgical History: Reports: None Female Surgical History: Reports: Breast Biopsy Endocrine Surgical History: Reports: None Musculoskeletal Surgical History: Reports: Other (See Below) Other Musculoskeletal Surgeries/Procedures:: left ankle repair Dermatological Surgical History: Reports: Skin Biopsy Social & Family History - Family History Family Medical History: Noncontributory - Caffeine Use Caffeine Use: Reports: Coffee Other Caffeine Use: 3 cups coffee daily, 1 can pop dailty - Recreational Drug Use Recreational Drug Use: No - Living Situation & Occupation Living situation: Reports: Single, Alone (lives alone in her home in [place], [place]., 2 children; son Palmer,who visits on weekends, Daughter two years ago of overdose. 3 grandchildren.) H&P Review of Systems - Review of Systems: Review Of Systems: See Below General: Reports: Malaise, Weakness, Fatigue, Decreased Appetite HEENT: Reports: Other (no teeth) Pulmonary: Reports: Shortness of Breath, Wheezing (COPD) Cardiovascular: Reports: Dyspnea on Exertion, Edema (lower leg chronic), Syncope (near syncope), Other (hx of DVT ) Gastrointestinal: Reports: Black Stool Genitourinary: Reports: No Symptoms Musculoskeletal: Reports: Shoulder Pain, Back Pain, Joint Pain, Muscle Stiffness , Other (hx of compression fractures of spine, pelvic fractures. arthritis) Skin: Reports: Erythema (lower legs with red areas, no open ulcers noted. skin is shiny, thin.) Psychiatric: Reports: No Symptoms Neurological: Reports: Dizziness, Pre-Existing Deficit, Weakness Hematologic/Lymphatic: Reports: Anemia Immunologic: Reports: No Symptoms Exam - Exam Exam: See Below - Vital Signs Vital Signs: Last Vital Signs Temp 36.3 C 03/28/19 01:08 Pulse 61 03/28/19 01:08 Resp 22 H 03/28/19 01:08 BP 120/53 L 03/28/19 01:08 Pulse Ox 95 03/28/19 01:08 Weight: 73.482 kg - Exam General: Alert, Oriented, Cooperative, Mild Distress (complaints of back pain.) HEENT: Conjunctiva Clear (pale), Mucosa Moist & [place] (mouth dry, teeth absent), Pupils Equal Neck: Supple, Trachea Midline Lungs: Normal Respiratory Effort, Decreased Breath Sounds Cardiovascular: Regular Rate, Regular Rhythm GI/Abdominal Exam: Soft, Non-Tender, No Distention, Abnormal Bowel Sounds ( hypoactive) (Female) Exam: Deferred Rectal (Female) Exam: Deferred Back Exam: Normal Inspection Extremities: Pedal Edema, Slow Capillary Refill, Increased Warmth, Redness Skin: Warm, Dry, Intact Neurological: Strength Equal Bilateral Neuro Extensive - Mental Status: Alert, Oriented x3, Normal Mood/Affect, Normal Cognition Psychiatric: Alert, Normal Affect, Normal Mood - Patient Data Lab Results Last 24 hrs: Laboratory Results - last 24 hr 03/28/19 03/28/19 03/28/19 Range/Units 00:25 00:25 00:25 WBC 5.2 (4.5-11.0) K/uL RBC 1.64 L (3.30-5.50) M/uL Hgb 5.2 L* D (12.0-15.0) g/dL Hct 17.8 L (36.0-48.0) % MCV 109 H (80-98) fL MCH 32 H (27-31) pg MCHC 29 L (32-36) % Plt Count 138 L (150-400) K/uL Neut % (Auto) 77 H (36-66) % Lymph % (Auto) 17 L (24-44) % [place] % (Auto) 5 (2-6) % Eos % (Auto) 1 L (2-4) % Baso % (Auto) 0 (0-1) % Sodium 138 L (140-148) mmol/L Potassium 4.4 (3.6-5.2) mmol/L Chloride 103 (100-108) mmol/L Carbon Dioxide 30 (21-32) mmol/L Anion Gap 9.4 (5.0-14.0) mmol/L BUN 105 H* D (7-18) mg/dL Creatinine 2.1 H (0.6-1.0) mg/dL Est Cr Clr Drug Dosing 19.15 mL/min Estimated GFR (MDRD) 23 L (>60) Glucose 145 H (74-106) mg/dL Calcium 8.2 L (8.5-10.1) mg/dL Total Bilirubin 0.2 D (0.2-1.0) mg/dL AST 31 (15-37) U/L ALT 18 (12-78) U/L Alkaline Phosphatase 80 (46-116) U/L Troponin I 0.060 H* (0.000-0.056) ng/mL Total Protein 6.3 L (6.4-8.2) g/dL Albumin 2.3 L (3.4-5.0) g/dL Globulin 4.0 H (2.3-3.5) g/dL Albumin/Globulin Ratio 0.6 L (1.2-2.2) Blood Type A POSITIVE Gel Antibody Screen Negative Crossmatch See Detail Result Diagrams: 03/28/19 00:25 03/28/19 00:25 Antwon Results Last 24 hrs: Microbiology 03/28/19 00:52 Stool Occult Blood (ANTWON) - Final Stool / Feces Sepsis Event Note - Evaluation Sepsis Screening Result: No Definite Risk - Focused Exam Vital Signs: Vital Signs Temp Pulse Resp BP Pulse Ox 03/28/19 01:08 36.3 C 61 22 H 120/53 L 95 03/27/19 23:40 36.3 C 65 24 H 135/39 L 99 Date Exam was Performed: 03/28/19 Time Exam was Performed: 02:24 - Problem List (1) GI bleed SNOMED Code(s): 50802424 ICD Code: K92.2 - GASTROINTESTINAL HEMORRHAGE, UNSPECIFIED Status: Acute Priority: High Current Visit: Yes Qualifiers: GI bleed type/associated pathology: gastritis Qualified Code(s): K92.1 - Melena (2) Chronic back pain greater than 3 months duration ICD Code: M54.9 - DORSALGIA, UNSPECIFIED; G89.29 - OTHER CHRONIC PAIN Status: Acute Priority: Medium Current Visit: Yes (3) COPD (chronic obstructive pulmonary disease) SNOMED Code(s): 20224024 ICD Code: J44.9 - CHRONIC OBSTRUCTIVE PULMONARY DISEASE, UNSPECIFIED Status : Chronic Priority: Low Current Visit: Yes Qualifiers: COPD type: unspecified COPD Qualified Code(s): J44.9 - Chronic obstructive pulmonary disease, unspecified (4) Diabetes mellitus, type 2 SNOMED Code(s): 22705591 ICD Code: E11.9 - TYPE 2 DIABETES MELLITUS WITHOUT COMPLICATIONS Status: Chronic Priority: Low Current Visit: Yes Qualifiers: Diabetes mellitus complication status: without complication (5) Essential hypertension SNOMED Code(s): 04051886 ICD Code: I10 - ESSENTIAL (PRIMARY) HYPERTENSION Status: Chronic Priority : Low Current Visit: Yes Problem List Initiated/Reviewed/Updated: Yes Orders Last 24hrs: Active Orders 24 hr Category Date Time Status Patient Status Manage Transfer [TRANSFER] Routine ADT 03/28/19 01:38 Active Cardiac Monitoring [RC] CONTINUOUS Care 03/28/19 01:49 Ordered Intake and Output [RC] QSHIFT Care 03/28/19 01:49 Ordered Notify Provider Vital Signs [RC] ASDIRECTED Care 03/28/19 01:49 Ordered Oxygen Therapy [RC] PRN Care 03/28/19 01:48 Ordered Pulse Oximetry [RC] PRN Care 03/28/19 01:49 Ordered RT Aerosol Therapy [RC] ASDIRECTED Care 03/28/19 00:15 Active RT Aerosol Therapy [RC] ASDIRECTED Care 03/28/19 01:53 Ordered Up With Assistance [RC] ASDIRECTED Care 03/28/19 01:48 Ordered VTE/DVT Education [RC] Per Unit Routine Care 03/28/19 01:48 Ordered Vital Signs [RC] Q4H Care 03/28/19 01:48 Ordered Nothing per Oral Now Diet [DIET] Diet 03/28/19 Breakfast Ordered CBC WITH AUTO DIFF [HEME] AM Lab 03/28/19 05:11 Ordered GLUCOSE POC LAB TO COLLECT [POC] QIDACANDBED Lab 03/28/19 07:30 Ordered GLUCOSE POC LAB TO COLLECT [POC] QIDACANDBED Lab 03/28/19 11:30 Ordered GLUCOSE POC LAB TO COLLECT [POC] QIDACANDBED Lab 03/28/19 16:30 Ordered GLUCOSE POC LAB TO COLLECT [POC] QIDACANDBED Lab 03/28/19 21:00 Ordered RED BLOOD CELLS LP [BBK] Stat Lab 03/28/19 00:25 Results TYPE AND SCREEN [BBK] Stat Lab 03/28/19 00:25 Results UA W/MICROSCOPIC [URIN] Urgent Lab 03/28/19 00:24 Ordered Acetaminophen [Tylenol] Med 03/28/19 01:48 Ordered 650 mg PO Q4H PRN Acetaminophen/HYDROcodone [Tunica 325-5 MG] Med 03/28/19 01:48 Ordered 1 tab PO Q4H PRN Albuterol [Proventil Neb Soln] Med 03/28/19 01:48 Ordered 2.5 mg NEB Q4H PRN Albuterol/Ipratropium [DuoNeb 3.0-0.5 MG/3 ML] Med 03/28/19 01:48 Ordered 3 ml NEB QID PRN Chlorthalidone Med 03/28/19 09:00 Ordered 25 mg PO DAILY Docusate Sodium [Colace] Med 03/28/19 01:48 Ordered 100 mg PO BID PRN Furosemide [Lasix] Med 03/28/19 09:00 Ordered 80 mg PO DAILY Gabapentin [Neurontin] Med 03/28/19 09:00 Ordered 300 mg PO TID Losartan Potassium [Cozaar] Med 03/28/19 09:00 Ordered 100 mg PO DAILY Magnesium Oxide Med 03/28/19 09:00 Ordered 400 mg PO TID Morphine Med 03/28/19 01:48 Ordered 2 mg IVPUSH Q2H PRN Ondansetron [Zofran ODT] Med 03/28/19 01:48 Ordered 4 mg PO Q6H PRN Ondansetron [Zofran] Med 03/28/19 01:48 Ordered 4 mg IV Q4H PRN Pantoprazole [ProTONIX IV] Med 03/28/19 09:00 Ordered 40 mg IV DAILY Sodium Chloride 0.9% [Normal Saline] 1,000 ml Med 03/28/19 02:00 Ordered IV ASDIRECTED Spironolactone [Aldactone] Med 03/28/19 09:00 Ordered 25 mg PO DAILY Triamcinolone Acetonide [Triamcinolone Acetonide 0.1% Med 03/28/19 01:55 Ordered Crm] 1 applic TOP TID PRN cycloSPORINE [Restasis] Med 03/28/19 09:00 Ordered 1 drop EYEBOTH BID rOPINIRole [Requip] Med 03/28/19 09:00 Ordered 1.5 mg PO BID traZODone Med 03/28/19 21:00 Ordered 50 mg PO BEDTIME Sequential Compression Device [OM.PC] Per Unit Routine Oth 03/28/19 01:50 Ordered Transfuse Red Blood Cells [COMM] Urgent Oth 03/28/19 01:53 Ordered Resuscitation Status Routine Resus Stat 03/28/19 01:48 Ordered Assessment/Plan Comment:: ASSESSMENT AND PLAN: 74-year-old female is been living independently for the past 2 weeks after being in a halfway for a prolonged period of time for pelvic fractures. She has emphysema and has nebulizers and metered-dose inhalers but does not use them. She is a non-smoker. For the last 3 days she has had increased weakness and periods of confusion. She has not fallen, no new injuries, no diarrhea or nausea or vomiting. She has no new cough or fevers. No urinary symptoms. Her only complaint is weakness. Tonight when she talked her granddaughter she felt she could not get out of bed to get to the bathroom because she was too weak so the ambulance was called. She did however get up to go to the bathroom and did go. Onset: Gradual O2 saturations are in the upper 90s with nasal cannula, however if she breathes through her mouth it tends to drop to the upper 80s to low 90s. A 1 view chest x-ray will be obtained after a DuoNeb was given. Also CBC CMP troponin and a mini cath UA. 03/28/19 00:39 Chest x-ray showed no considerable congestive heart failure or infiltrate. Hemoglobin was 5.2. 03/28/19 01:02 BUN 105, troponin 0 0.06. Hemoccult positive. review of history; 2 admission in 2019 on 05/09/2018 and 02/15/2019 for acute anemia. Both admissions had a EGD and Colonoscopy by , which showed gastritis. She had blood transfusion with both admission for hemoglobin of 5 and 6.7 Gastrointestinal bleed chronic. Hemoglobin today 5.2 -IV Protonix 40 mg in ER, then 40 mg IV daily -IV fluids Normal Saline 75ml/hr -blood products - type and cross for 2 units to transfuse today -NPO -serial hemoglobin every 6 hours Diabetes Type 2 -glucose testing 4 times a day and at bedtime Chronic Back Pain, history of compression fractures. osteoporosis -Tunica 5-325mg one po every 4 to 6 hours as needed for pain -continue home medication COPD -nebulizer ordered CAD, HTN, DVT, CHF -continue home medications. MAINTENANCE ISSUES -DVT prophylaxis; SCD -GI prophylaxis; Protonix 40 mg given in ER, then IV 40 mg daily -Villeda catheter; not indicated -Nutrition; NPO -Nicotine dependence; non-smoker CODE STATUS-FULL CODE ADMISSION STATUS-patient will be admitted to inpatient status, expect at least a 2 night hospital stay for evaluation and management of problems as outlined above. At the time of this admission I do not reasonably expected evaluation and management of this problem will require more than a 96 hour hospital stay. DISPOSITION-anticipate discharge to home after the hospital stay. PRIMARY CARE PROVIDER-, [facility] HOSPITALIST - Dr. Rivera - Mortality Measure Prognosis:: Good - Mortality Measure Prognosis:: Good
[2019-03-28] MEDS: Sodium Chloride 0.9% 1,000 ML IV SCH ×2 (02:30→15:21)
[2019-03-28] MEDS ORDERED: Pantoprazole 40 MG Vial IV SCH (09:00)
[2019-03-28] MEDS ORDERED: Non-Formulary Medication 1 Each (Cyclosporine [Restasis] 1 DROP) EYEBOTH SCH (09:00)
[2019-03-28] MEDS: Gabapentin 300 MG Cap PO SCH ×3 (09:08→20:37)
[2019-03-28] MEDS: Chlorthalidone 25 MG Tab PO SCH (09:08)
[2019-03-28] MEDS: Spironolactone 25 MG Tab PO SCH (09:08)
[2019-03-28] MEDS: Losartan 50 MG Tab PO SCH (09:08)
[2019-03-28] MEDS: Furosemide 40 MG Tab PO SCH (09:09)
[2019-03-28] MEDS: rOPINIRole 0.5 MG Tab PO SCH ×2 (09:09→20:37)
[2019-03-28] MEDS: Magnesium Oxide 400 MG Tab PO SCH ×3 (09:09→20:37)
[2019-03-28] MEDS ORDERED: Hypromellose 0.3% Ophth Soln 15 ML Bottle EYEBOTH PRN (10:31)
--- NOTE | 2019-03-28 10:44 | PCM.PN ---
- General Info Date of Service: 03/28/19 Subjective Update: Ms. Obrien is a 74-year-old woman who was admitted through the emergency department with severe anemia. Recent history is of progressive weakness resulting in her emergency department visit. She was hospitalized at this facility approximately 2 months ago. At that time she was found to be anemic with normal indices. Upper and lower endoscopy were performed with only mild gastritis noted on EGD. She was discharged on Protonix but has not been taking the medication recently. She is on long-term oral anticoagulation. Since admission has received 2 units of red blood cells and is feeling somewhat better. There is been no evidence of active bleeding since admission. Functional Status: Reports: Urinating - Review of Systems General: Reports: Weakness. Denies: Fever, Chills Pulmonary: Reports: No Symptoms Cardiovascular: Reports: No Symptoms Gastrointestinal: Reports: Abdominal Pain, Decreased Appetite. Denies: Diarrhea , Difficulty Swallowing, Hematochezia, Melena, Nausea, Vomiting - Patient Data Vitals - Most Recent: Last Vital Signs Temp 97.1 F 03/28/19 07:52 Pulse 70 03/28/19 07:52 Resp 14 03/28/19 07:52 BP 138/39 L 03/28/19 09:08 Pulse Ox 98 03/28/19 07:52 Weight - Most Recent: 168 lb 12.8 oz I&O - Last 24 Hours: Intake & Output 03/27/19 03/28/19 03/28/19 22:59 06:59 14:59 Intake Total 390 390 Output Total 150 200 Balance 240 190 Lab Results Last 24 Hours: Laboratory Results - last 24 hr 03/28/19 03/28/19 03/28/19 Range/Units 00:24 00:25 00:25 WBC 5.2 (4.5-11.0) K/uL RBC 1.64 L (3.30-5.50) M/uL Hgb 5.2 L* D (12.0-15.0) g/dL Hct 17.8 L (36.0-48.0) % MCV 109 H (80-98) fL MCH 32 H (27-31) pg MCHC 29 L (32-36) % Plt Count 138 L (150-400) K/uL Neut % (Auto) 77 H (36-66) % Lymph % (Auto) 17 L (24-44) % [place] % (Auto) 5 (2-6) % Eos % (Auto) 1 L (2-4) % Baso % (Auto) 0 (0-1) % Sodium 138 L (140-148) mmol/L Potassium 4.4 (3.6-5.2) mmol/L Chloride 103 (100-108) mmol/L Carbon Dioxide 30 (21-32) mmol/L Anion Gap 9.4 (5.0-14.0) mmol/L BUN 105 H* D (7-18) mg/dL Creatinine 2.1 H (0.6-1.0) mg/dL Est Cr Clr Drug Dosing 19.15 mL/min Estimated GFR (MDRD) 23 L (>60) Glucose 145 H (74-106) mg/dL Calcium 8.2 L (8.5-10.1) mg/dL Total Bilirubin 0.2 D (0.2-1.0) mg/dL AST 31 (15-37) U/L ALT 18 (12-78) U/L Alkaline Phosphatase 80 (46-116) U/L Troponin I 0.060 H* (0.000-0.056) ng/mL Total Protein 6.3 L (6.4-8.2) g/dL Albumin 2.3 L (3.4-5.0) g/dL Globulin 4.0 H (2.3-3.5) g/dL Albumin/Globulin Ratio 0.6 L (1.2-2.2) Urine Color Yellow (YELLOW) Urine Appearance Clear (CLEAR) Urine pH 7.0 (5.0-8.0) Ur Specific [place] 1.015 (1.008-1.030) Urine Protein Negative (NEGATIVE) mg/dL Urine Glucose (UA) Negative (NEGATIVE) mg/dL Urine Ketones Negative (NEGATIVE) mg/dL Urine Occult Blood Negative (NEGATIVE) Urine Nitrite Negative (NEGATIVE) Urine Bilirubin Negative (NEGATIVE) Urine Urobilinogen 0.2 (0.2-1.0) EU/dL Ur Leukocyte Esterase Negative (NEGATIVE) Urine RBC 0-5 (0-5) Urine WBC 0-5 (0-5) Ur Epithelial Cells Few Amorphous Sediment Not seen Urine Bacteria Rare Urine Mucus Not seen Blood Type Gel Antibody Screen Crossmatch 03/28/19 03/28/19 03/28/19 Range/Units 00:25 05:30 08:15 WBC 4.9 (4.5-11.0) K/uL RBC 2.09 L (3.30-5.50) M/uL Hgb 6.5 L* 8.2 L (12.0-15.0) g/dL Hct 22.0 L (36.0-48.0) % MCV 105 H (80-98) fL MCH 31 (27-31) pg MCHC 30 L (32-36) % Plt Count 136 L (150-400) K/uL Neut % (Auto) 73 H (36-66) % Lymph % (Auto) 19 L (24-44) % [place] % (Auto) 6 (2-6) % Eos % (Auto) 2 (2-4) % Baso % (Auto) 0 (0-1) % Sodium (140-148) mmol/L Potassium (3.6-5.2) mmol/L Chloride (100-108) mmol/L Carbon Dioxide (21-32) mmol/L Anion Gap (5.0-14.0) mmol/L BUN (7-18) mg/dL Creatinine (0.6-1.0) mg/dL Est Cr Clr Drug Dosing mL/min Estimated GFR (MDRD) (>60) Glucose (74-106) mg/dL Calcium (8.5-10.1) mg/dL Total Bilirubin (0.2-1.0) mg/dL AST (15-37) U/L ALT (12-78) U/L Alkaline Phosphatase (46-116) U/L Troponin I (0.000-0.056) ng/mL Total Protein (6.4-8.2) g/dL Albumin (3.4-5.0) g/dL Globulin (2.3-3.5) g/dL Albumin/Globulin Ratio (1.2-2.2) Urine Color (YELLOW) Urine Appearance (CLEAR) Urine pH (5.0-8.0) Ur Specific [place] (1.008-1.030) Urine Protein (NEGATIVE) mg/dL Urine Glucose (UA) (NEGATIVE) mg/dL Urine Ketones (NEGATIVE) mg/dL Urine Occult Blood (NEGATIVE) Urine Nitrite (NEGATIVE) Urine Bilirubin (NEGATIVE) Urine Urobilinogen (0.2-1.0) EU/dL Ur Leukocyte Esterase (NEGATIVE) Urine RBC (0-5) Urine WBC (0-5) Ur Epithelial Cells Amorphous Sediment Urine Bacteria Urine Mucus Blood Type A POSITIVE Gel Antibody Screen Negative Crossmatch See Detail Antwon Results Last 24 Hours: Microbiology 03/28/19 00:52 Stool Occult Blood (ANTWON) - Final Stool / Feces Med Orders - Current: Current Medications Acetaminophen (Tylenol) 650 mg PO Q4H PRN PRN Reason: Pain (Mild 1-3)/fever Hydrocodone Bitart/Acetaminophen ([place] 325-5 Mg) 1 tab PO Q4H PRN PRN Reason: Pain (moderate 4-6) Albuterol (Proventil Neb Soln) 2.5 mg NEB Q4H PRN PRN Reason: Shortness Of Breath/wheezing Albuterol/Ipratropium (Duoneb 3.0-0.5 Mg/3 Ml) 3 ml NEB QID PRN PRN Reason: Shortness Of Breath/wheezing Artificial Tears (Genteal Mild To Moderate Ophth Soln) 0 ml EYEBOTH QID PRN PRN Reason: DRY EYES Chlorthalidone (Chlorthalidone) 25 mg PO DAILY [facility] Last Admin: 03/28/19 09:08 Dose: 25 mg Docusate Sodium (Colace) 100 mg PO BID PRN PRN Reason: Constipation Furosemide (Lasix) 80 mg PO DAILY [facility] Last Admin: 03/28/19 09:09 Dose: 80 mg Gabapentin (Neurontin) 300 mg PO TID [facility] Last Admin: 03/28/19 09:08 Dose: 300 mg Sodium Chloride (Normal Saline) 1,000 mls @ 75 mls/hr IV ASDIRECTED [facility] Last Admin: 03/28/19 02:30 Dose: 75 mls/hr Losartan Potassium (Cozaar) 100 mg PO DAILY [facility] Last Admin: 03/28/19 09:08 Dose: 100 mg Magnesium Oxide (Magnesium Oxide) 400 mg PO TID [facility] Last Admin: 03/28/19 09:09 Dose: 400 mg Morphine Sulfate (Morphine) 2 mg IVPUSH Q2H PRN PRN Reason: Pain (severe 7-10) Last Admin: 03/28/19 03:32 Dose: 2 mg Ondansetron HCl (Zofran Odt) 4 mg PO Q6H PRN PRN Reason: Nausea able to take PO Ondansetron HCl (Zofran) 4 mg IV Q4H PRN PRN Reason: Nausea/Vomiting Pantoprazole Sodium (Protonix Iv) 40 mg IV Q12H [facility] Ropinirole HCl (Requip) 1.5 mg PO BID [facility] Last Admin: 03/28/19 09:09 Dose: 1.5 mg Spironolactone (Aldactone) 25 mg PO DAILY [facility] Last Admin: 03/28/19 09:08 Dose: 25 mg Trazodone HCl (Trazodone) 50 mg PO BEDTIME [facility] Triamcinolone Acetonide (Triamcinolone Acetonide 0.1% Crm) 0 gm TOP TID PRN PRN Reason: Rash Discontinued Medications Hydrocodone Bitart/Acetaminophen ([place] 325-5 Mg) 1 tab PO ONETIME ONE Stop: 03/28/19 01:38 Last Admin: 03/28/19 01:42 Dose: 1 tab Albuterol/Ipratropium (Duoneb 3.0-0.5 Mg/3 Ml) 3 ml NEB ONETIME ONE Stop: 03/28/19 00:15 Last Admin: 03/28/19 00:24 Dose: 3 ml Pantoprazole Sodium (Protonix Iv) 40 mg IVPUSH ONETIME ONE Stop: 03/28/19 00:40 Last Admin: 03/28/19 00:47 Dose: 40 mg Pantoprazole Sodium (Protonix Iv) 40 mg IV DAILY [facility] Last Admin: 03/28/19 09:09 Dose: 40 mg - Exam General: Alert, Oriented, Cooperative, Mild Distress Lungs: Clear to Auscultation, Normal Respiratory Effort Cardiovascular: Regular Rate, Regular Rhythm, No Murmurs GI/Abdominal Exam: Soft, Non-Tender, No Organomegaly, No Distention Extremities: Non-Tender, No Pedal Edema Sepsis Event Note - Evaluation Sepsis Screening Result: No Definite Risk - Focused Exam Vital Signs: Vital Signs Temp Temp Pulse Resp BP BP Pulse Ox 03/28/19 09:08 138/39 L 03/28/19 07:52 97.1 F 70 14 105/41 L 98 03/28/19 07:12 98.1 F 49 L 16 110/29 L 92 L 03/28/19 06:58 98.1 F 46 L 14 105/38 L 94 L 03/28/19 06:28 98.0 F 50 L 12 110/38 L 99 03/28/19 05:58 97.8 F 53 L 15 112/37 L 97 03/28/19 05:43 98.0 F 57 L 20 129/33 L 94 L 03/28/19 05:28 97.9 F 49 L 15 106/30 L 98 03/28/19 05:13 98.2 F 48 L 16 112/31 L 99 03/28/19 04:48 98.4 F 52 L 14 120/31 L 96 03/28/19 04:20 98.3 F 48 L 16 108/23 L 98 03/28/19 03:55 98.4 F 53 L 13 119/28 L 98 03/28/19 03:50 98.4 F 45 L 16 119/28 L 99 03/28/19 03:20 97.7 F 56 L 24 H 112/26 L 03/28/19 03:05 97.4 F 53 L 17 105/24 L 97 03/28/19 02:50 97.1 F 49 L 13 97/25 L 99 03/28/19 02:35 96.2 F 52 L 20 105/33 L 03/28/19 01:49 98 03/28/19 01:48 96.2 F 54 L 12 105/33 L 98 03/28/19 01:08 97.4 F 61 22 H 120/53 L 95 03/27/19 23:40 97.4 F 65 24 H 135/39 L 99 Date Exam was Performed: 03/28/19 Time Exam was Performed: 10:44 - Problem List Review Problem List Initiated/Reviewed/Updated: Yes - My Orders Last 24 Hours: My Active Orders 03/28/19 10:45 Pantoprazole [ProTONIX IV] 40 mg IV Q12H 03/28/19 13:00 FOLIC ACID [CHEM] Routine HGB [HEMOGLOBIN] [HEME] Stat TROPONIN I [CHEM] Stat VITAMIN B12 [CHEM] Routine 03/28/19 21:00 HGB [HEMOGLOBIN] [HEME] Stat 03/28/19 Lunch Clear Liquid Diet [DIET] 03/29/19 05:00 BASIC METABOLIC PANEL,BMP [CHEM] Timed CBC WITH AUTO DIFF [HEME] Timed TROPONIN I [CHEM] Timed - Plan Plan:: ASSESSMENT AND PLAN Gastrointestinal bleed chronic-hemoglobin of 5.2 on admission, now up to 8 following transfusion of 2 units of red blood cells -IV Protonix 40 mg IV every 12 hours -IV fluids Normal Saline 75ml/hr -Clear liquid diet -serial hemoglobin every 6 hours Acute kidney injury-creatinine almost doubled from baseline, likely secondary to dehydration -Closely monitor urine output and renal function Elevated troponin-likely secondary to renal insufficiency as well as demand ischemia in the setting of dehydration and severe anemia -Serial troponin levels Diabetes Type 2 -glucose testing 4 times a day and at bedtime -Continue usual outpatient medications Chronic Back Pain, history of compression fractures. osteoporosis -[place] 5-325mg one po every 4 to 6 hours as needed for pain -continue home medication COPD -nebulizer ordered CAD, HTN, DVT, CHF -continue home medications. MAINTENANCE ISSUES -DVT prophylaxis; SCD -GI prophylaxis; Protonix 40 mg given in ER, then IV 40 mg daily -Villeda catheter; not indicated -Nutrition; NPO -Nicotine dependence; non-smoker CODE STATUS-FULL CODE ADMISSION STATUS-patient will be admitted to inpatient status, expect at least a 2 night hospital stay for evaluation and management of problems as outlined above. At the time of this admission I do not reasonably expected evaluation and management of this problem will require more than a 96 hour hospital stay. DISPOSITION-anticipate discharge to home after the hospital stay. PRIMARY CARE PROVIDER-, [facility] HOSPITALIST - Dr. Rivera - Mortality Measure Prognosis:: Good
[2019-03-28] MEDS: Acetaminophen/HYDROcodone 325-5 MG Tab PO PRN ×2 (18:49→22:28)
[2019-03-28] MEDS: Pantoprazole 40 MG Vial IV SCH (20:37)
[2019-03-28] MEDS: traZODone 50 MG Tab PO SCH (22:28)
[2019-03-29] MEDS: Sodium Chloride 0.9% 1,000 ML IV SCH (04:44)
[2019-03-29] MEDS: Acetaminophen/HYDROcodone 325-5 MG Tab PO PRN ×4 (05:05→22:57)
[2019-03-29] MEDS: Furosemide 40 MG Tab PO SCH (08:54)
[2019-03-29] MEDS: Magnesium Oxide 400 MG Tab PO SCH ×3 (08:54→20:25)
[2019-03-29] MEDS: Chlorthalidone 25 MG Tab PO SCH (08:55)
[2019-03-29] MEDS: Spironolactone 25 MG Tab PO SCH (08:55)
[2019-03-29] MEDS: Gabapentin 300 MG Cap PO SCH ×3 (08:56→20:25)
[2019-03-29] MEDS: Losartan 50 MG Tab PO SCH (08:56)
[2019-03-29] MEDS: rOPINIRole 0.5 MG Tab PO SCH ×2 (08:57→20:25)
[2019-03-29] MEDS: Pantoprazole 40 MG Vial IV SCH (09:00)
--- NOTE | 2019-03-29 09:21 | PCM.PN ---
- General Info Date of Service: 03/29/19 Subjective Update: Ms. Obrien has been stable since yesterday, no evidence of active bleeding. Hemoglobin level has remained stable following transfusion of 2 units of red blood cells. She denies shortness of breath or significant abdominal pain. Functional Status: Reports: Tolerating Diet, Ambulating, Urinating - Review of Systems General: Reports: Weakness. Denies: Fever, Chills Pulmonary: Reports: No Symptoms Cardiovascular: Reports: No Symptoms Gastrointestinal: Reports: No Symptoms Genitourinary: Reports: No Symptoms - Patient Data Vitals - Most Recent: Last Vital Signs Temp 98.2 F 03/29/19 08:00 Pulse 55 L 03/29/19 08:00 Resp 13 03/29/19 08:00 BP 112/52 L 03/29/19 08:56 Pulse Ox 95 03/29/19 08:00 Weight - Most Recent: 168 lb 12.8 oz I&O - Last 24 Hours: Intake & Output 03/28/19 03/29/19 03/29/19 22:59 06:59 14:59 Intake Total 1770 996 Output Total 1125 450 Balance 645 546 Lab Results Last 24 Hours: Laboratory Results - last 24 hr 03/28/19 03/28/19 03/28/19 Range/Units 13:07 13:07 21:00 WBC (4.5-11.0) K/uL RBC (3.30-5.50) M/uL Hgb 7.9 L 8.5 L (12.0-15.0) g/dL Hct (36.0-48.0) % MCV (80-98) fL MCH (27-31) pg MCHC (32-36) % Plt Count (150-400) K/uL Neut % (Auto) (36-66) % Lymph % (Auto) (24-44) % [place] % (Auto) (2-6) % Eos % (Auto) (2-4) % Baso % (Auto) (0-1) % Sodium (140-148) mmol/L Potassium (3.6-5.2) mmol/L Chloride (100-108) mmol/L Carbon Dioxide (21-32) mmol/L Anion Gap (5.0-14.0) mmol/L BUN (7-18) mg/dL Creatinine (0.6-1.0) mg/dL Est Cr Clr Drug Dosing mL/min Estimated GFR (MDRD) (>60) Glucose (74-106) mg/dL Calcium (8.5-10.1) mg/dL Troponin I 0.071 H* (0.000-0.056) ng/mL Vitamin B12 547 (193-986) pg/ml Folate > 20.0 (8.6-58.9) ng/ml 03/29/19 03/29/19 Range/Units 04:10 04:10 WBC 4.2 L (4.5-11.0) K/uL RBC 2.59 L (3.30-5.50) M/uL Hgb 8.0 L (12.0-15.0) g/dL Hct 26.8 L (36.0-48.0) % MCV 104 H (80-98) fL MCH 31 (27-31) pg MCHC 30 L (32-36) % Plt Count 130 L (150-400) K/uL Neut % (Auto) 69 H (36-66) % Lymph % (Auto) 19 L (24-44) % [place] % (Auto) 7 H (2-6) % Eos % (Auto) 5 H (2-4) % Baso % (Auto) 1 (0-1) % Sodium 142 (140-148) mmol/L Potassium 4.2 (3.6-5.2) mmol/L Chloride 110 H (100-108) mmol/L Carbon Dioxide 28 (21-32) mmol/L Anion Gap 8.2 (5.0-14.0) mmol/L BUN 79 H* (7-18) mg/dL Creatinine 1.7 H (0.6-1.0) mg/dL Est Cr Clr Drug Dosing 23.66 mL/min Estimated GFR (MDRD) 30 L (>60) Glucose 91 (74-106) mg/dL Calcium 7.1 L (8.5-10.1) mg/dL Troponin I 0.063 H* (0.000-0.056) ng/mL Vitamin B12 (193-986) pg/ml Folate (8.6-58.9) ng/ml Med Orders - Current: Current Medications Acetaminophen (Tylenol) 650 mg PO Q4H PRN PRN Reason: Pain (Mild 1-3)/fever Hydrocodone Bitart/Acetaminophen ([place] 325-5 Mg) 1 tab PO Q4H PRN PRN Reason: Pain (moderate 4-6) Last Admin: 03/29/19 05:05 Dose: 1 tab Albuterol (Proventil Neb Soln) 2.5 mg NEB Q4H PRN PRN Reason: Shortness Of Breath/wheezing Albuterol/Ipratropium (Duoneb 3.0-0.5 Mg/3 Ml) 3 ml NEB QID PRN PRN Reason: Shortness Of Breath/wheezing Artificial Tears (Genteal Mild To Moderate Ophth Soln) 0 ml EYEBOTH QID PRN PRN Reason: DRY EYES Chlorthalidone (Chlorthalidone) 25 mg PO DAILY [facility] Last Admin: 03/29/19 08:55 Dose: 25 mg Docusate Sodium (Colace) 100 mg PO BID PRN PRN Reason: Constipation Furosemide (Lasix) 80 mg PO DAILY [facility] Last Admin: 03/29/19 08:54 Dose: 80 mg Gabapentin (Neurontin) 300 mg PO TID [facility] Last Admin: 03/29/19 08:56 Dose: 300 mg Losartan Potassium (Cozaar) 100 mg PO DAILY [facility] Last Admin: 03/29/19 08:56 Dose: 100 mg Magnesium Oxide (Magnesium Oxide) 400 mg PO TID [facility] Last Admin: 03/29/19 08:54 Dose: 400 mg Morphine Sulfate (Morphine) 2 mg IVPUSH Q2H PRN PRN Reason: Pain (severe 7-10) Last Admin: 03/28/19 03:32 Dose: 2 mg Ondansetron HCl (Zofran Odt) 4 mg PO Q6H PRN PRN Reason: Nausea able to take PO Ondansetron HCl (Zofran) 4 mg IV Q4H PRN PRN Reason: Nausea/Vomiting Pantoprazole Sodium (Protonix Iv) 40 mg IV Q12H [facility] Last Admin: 03/29/19 09:00 Dose: 40 mg Ropinirole HCl (Requip) 1.5 mg PO BID [facility] Last Admin: 03/29/19 08:57 Dose: 1.5 mg Spironolactone (Aldactone) 25 mg PO DAILY [facility] Last Admin: 03/29/19 08:55 Dose: 25 mg Trazodone HCl (Trazodone) 50 mg PO BEDTIME [facility] Last Admin: 03/28/19 22:28 Dose: Not Given Triamcinolone Acetonide (Triamcinolone Acetonide 0.1% Crm) 0 gm TOP TID PRN PRN Reason: Rash Discontinued Medications Hydrocodone Bitart/Acetaminophen ([place] 325-5 Mg) 1 tab PO ONETIME ONE Stop: 03/28/19 01:38 Last Admin: 03/28/19 01:42 Dose: 1 tab Albuterol/Ipratropium (Duoneb 3.0-0.5 Mg/3 Ml) 3 ml NEB ONETIME ONE Stop: 03/28/19 00:15 Last Admin: 03/28/19 00:24 Dose: 3 ml Sodium Chloride (Normal Saline) 1,000 mls @ 75 mls/hr IV ASDIRECTED [facility] Last Admin: 03/29/19 04:44 Dose: 75 mls/hr Pantoprazole Sodium (Protonix Iv) 40 mg IVPUSH ONETIME ONE Stop: 03/28/19 00:40 Last Admin: 03/28/19 00:47 Dose: 40 mg Pantoprazole Sodium (Protonix Iv) 40 mg IV DAILY [facility] Last Admin: 03/28/19 09:09 Dose: 40 mg - Exam Quality Assessment: DVT Prophylaxis General: Alert, Oriented, Cooperative, No Acute Distress Lungs: Clear to Auscultation, Normal Respiratory Effort Cardiovascular: Regular Rate, Regular Rhythm, No Murmurs GI/Abdominal Exam: Soft, Non-Tender, No Organomegaly, No Distention Extremities: Non-Tender, No Pedal Edema Sepsis Event Note - Evaluation Sepsis Screening Result: No Definite Risk - Focused Exam Vital Signs: Vital Signs Temp Pulse Resp BP BP Pulse Ox 03/29/19 08:56 112/52 L 03/29/19 08:00 98.2 F 55 L 13 112/52 L 95 03/29/19 06:00 49 L 12 100/47 L 94 L 03/29/19 04:00 98.0 F 59 L 14 129/44 L 97 03/29/19 02:00 55 L 14 99/35 L 96 03/29/19 00:00 98.0 F 48 L 14 98/34 L 97 03/28/19 22:00 66 16 125/32 L 96 Date Exam was Performed: 03/29/19 Time Exam was Performed: 09:16 - Problem List Review Problem List Initiated/Reviewed/Updated: Yes - My Orders Last 24 Hours: My Active Orders 03/28/19 21:00 Pantoprazole [ProTONIX IV] 40 mg IV Q12H 03/29/19 09:13 Patient Status [ADT] Routine Convert IV to Saline Lock [OM.PC] Routine 03/29/19 17:00 HGB [HEMOGLOBIN] [HEME] Stat 03/29/19 Breakfast GI Soft Low Fiber [Soft Diet] [DIET] 03/30/19 05:00 BASIC METABOLIC PANEL,BMP [CHEM] Timed 03/30/19 05:11 HGB [HEMOGLOBIN] [HEME] AM - Plan Plan:: ASSESSMENT AND PLAN Gastrointestinal bleed chronic-hemoglobin of 5.2 on admission, now up to 8 following transfusion of 2 units of red blood cells -IV Protonix 40 mg po every 12 hours -Saline lock IV -Soft low residue diet -serial hemoglobin every 12 hours Acute kidney injury-creatinine improved from admission, not yet back to baseline -Closely monitor urine output and renal function Elevated troponin-likely secondary to renal insufficiency as well as demand ischemia in the setting of dehydration and severe anemia Diabetes Type 2 -glucose testing 4 times a day and at bedtime -Continue usual outpatient medications Chronic Back Pain, history of compression fractures. osteoporosis -[place] 5-325mg one po every 4 to 6 hours as needed for pain -continue home medication COPD -nebulizer ordered CAD, HTN, DVT, CHF -continue home medications. MAINTENANCE ISSUES -DVT prophylaxis; SCD -GI prophylaxis; Protonix 40 mg given in ER, then IV 40 mg daily -Villeda catheter; not indicated -Nutrition; NPO -Nicotine dependence; non-smoker CODE STATUS-FULL CODE ADMISSION STATUS-patient will be admitted to inpatient status, expect at least a 2 night hospital stay for evaluation and management of problems as outlined above. At the time of this admission I do not reasonably expected evaluation and management of this problem will require more than a 96 hour hospital stay. DISPOSITION-anticipate discharge to home after the hospital stay. PRIMARY CARE PROVIDER-, [facility] HOSPITALIST - Dr. Rivera - Mortality Measure Prognosis:: Good
[2019-03-29] MEDS: Pantoprazole 40 MG Tab.CR PO SCH (15:39)
[2019-03-29] MEDS: traZODone 50 MG Tab PO SCH (20:25)
[2019-03-30] MEDS: Pantoprazole 40 MG Tab.CR PO SCH (08:12)
[2019-03-30] MEDS: rOPINIRole 0.5 MG Tab PO SCH (08:17)
[2019-03-30] MEDS: Spironolactone 25 MG Tab PO SCH (08:18)
[2019-03-30] MEDS: Gabapentin 300 MG Cap PO SCH (08:24)
[2019-03-30] MEDS: Magnesium Oxide 400 MG Tab PO SCH (08:24)
[2019-03-30 08:25] VITALS: BP 177/61
[2019-03-30 08:29] VITALS: PULSE 94
[2019-03-30] MEDS ORDERED: Losartan 50 MG Tab PO SCH (09:00)
[2019-03-30] MEDS ORDERED: Furosemide 40 MG Tab PO SCH (09:00)
--- NOTE | 2019-03-30 10:47 | PCM.DCSUM1 ---
Discharge Summary - Hospital Course Brief History: Ms. Obrien is a 74-year-old woman who was admitted through the emergency department with weakness secondary to severe anemia and a hemoglobin of 5.2. - Discharge Data Discharge Date: 03/30/19 Discharge Disposition: Home, Self-Care 01 Condition: Fair - Referral to Home Health Primary Care Physician: Eren Koenig MD - Discharge Diagnosis/Problem(s) (1) Blood loss anemia SNOMED Code(s): 196473081 ICD Code: D50.0 - IRON DEFICIENCY ANEMIA SECONDARY TO BLOOD LOSS (CHRONIC) Status: Acute Current Visit: Yes (2) GI bleed SNOMED Code(s): 20810398 ICD Code: K92.2 - GASTROINTESTINAL HEMORRHAGE, UNSPECIFIED Status: Acute Priority: High Current Visit: Yes Qualifiers: GI bleed type/associated pathology: gastritis (3) Weakness SNOMED Code(s): 42182629 ICD Code: R53.1 - WEAKNESS Status: Acute Current Visit: Yes (4) COPD (chronic obstructive pulmonary disease) SNOMED Code(s): 20602456 ICD Code: J44.9 - CHRONIC OBSTRUCTIVE PULMONARY DISEASE, UNSPECIFIED Status : Chronic Priority: Low Current Visit: Yes Qualifiers: COPD type: unspecified COPD Qualified Code(s): J44.9 - Chronic obstructive pulmonary disease, unspecified (5) Diabetes mellitus, type 2 SNOMED Code(s): 41147101 ICD Code: E11.9 - TYPE 2 DIABETES MELLITUS WITHOUT COMPLICATIONS Status: Chronic Priority: Low Current Visit: Yes Qualifiers: Diabetes mellitus complication status: without complication - Patient Summary/Data Hospital Course: 74-year-old female is been living independently for the past 2 weeks after being in a skilled nursing for a prolonged period of time for pelvic fractures. She has emphysema and has nebulizers and metered-dose inhalers but does not use them. She is a non-smoker. For the last 3 days she has had increased weakness and periods of confusion. She has not fallen, no new injuries, no diarrhea or nausea or vomiting. She has no new cough or fevers. No urinary symptoms. Her only complaint is weakness. Tonight when she talked her granddaughter she felt she could not get out of bed to get to the bathroom because she was too weak so the ambulance was called. She did however get up to go to the bathroom and did go. On admission she was given IV fluids for hydration and was also transfused 2 units of red blood cells. Following transfusion hemoglobin remained within stable range between 8 and 9, there was no further evidence of active bleeding. Endoscopy was not performed as she is had recent upper GI endoscopy. She also was noted to have episodes of hypotension which were felt to be secondary to medication effect. While in the hospital chlorthalidone was discontinued and her dose of losartan was decreased to 50 mg daily and her dose of furosemide was decreased to 40 mg daily. With these changes hypotension improved and she noted no further symptoms of lightheadedness. On laboratory studies prior to transfusion her MCV was actually noted to be elevated. Folic acid and vitamin B12 levels were obtained and found to be within normal range. There is concern that she may have underlying myelodysplastic syndrome contributing to her anemia, and will require close follow-up of laboratory studies after discharge. She was treated with IV Protonix initially and then transition to oral Protonix prior to discharge. Protonix will be continued at 40 mg twice daily for the next 2 weeks, then once daily thereafter. Changes in dosing of losartan and furosemide will be continued as an outpatient. Follow- up appointment will be scheduled with her primary care provider within 1 week, BMP and CBC should be obtained at the time of follow-up appointment and followed closely thereafter. She does have a known history of type 2 diabetes mellitus and blood sugars were monitored throughout her hospital stay. Activity will be as tolerated and she will be on a soft low residue diet for the next 2 weeks. - Patient Instructions Diet: GI Soft/Low Residue/Low Fiber (For 2 weeks) Activity: As Tolerated - Discharge Plan *PRESCRIPTION DRUG MONITORING PROGRAM REVIEWED*: Not Applicable *COPY OF PRESCRIPTION DRUG MONITORING REPORT IN PATIENT KELLY: Not Applicable Prescriptions/Med Rec: Furosemide [Lasix] 40 mg PO DAILY #30 tablet Losartan [Cozaar] 50 mg PO DAILY #30 tablet Pantoprazole [ProTONIX] 40 mg PO BIDAC #30 tab.cr Home Medications: Home Meds Hydroxychloroquine Sulfate 200 mg PO DAILY 05/09/13 [History] cycloSPORINE [Restasis] 1 drop EYEBOTH BID 05/09/13 [History] Loratadine [Allergy Relief] 10 mg PO DAILY 01/07/15 [History] Albuterol [Proventil Neb Soln] 3 ml INH Q4H PRN 09/22/15 [History] Albuterol [Ventolin HFA] 2 puff INH Q6H PRN 09/22/15 [History] Magnesium Oxide 400 mg PO TID 05/17/16 [History] Diclofenac Sodium [Voltaren] 4 gm TOP QID 09/26/18 [History] Gabapentin [Neurontin] 300 - 600 mg PO TID 09/26/18 [History] Loperamide [Imodium AD] 2 mg PO BID PRN 09/26/18 [History] Triamcinolone Acetonide [Kenalog 0.1% Crm] 1 applic TOP TID PRN 09/26/18 [ History] Ferrous Sulfate 325 mg PO TIDAC 12/24/18 [History] rOPINIRole [Requip] 1.5 mg PO BID 12/24/18 [History] Spironolactone [Aldactone] 25 mg PO DAILY 02/13/19 [History] traZODone HCl [Trazodone HCl] 50 mg PO BEDTIME 02/13/19 [History] Acetaminophen/HYDROcodone [[place] 325-5 MG] 1 tab PO Q4H PRN #20 tablet 02/16/19 [Rx] Calcium Carbonate/Vitamin D3 [Caltrate 600+D 1500 MG-400 Units] 1 tab PO BID # 60 tablet 02/16/19 [Rx] Furosemide [Lasix] 40 mg PO DAILY #30 tablet 03/30/19 [Rx] Losartan [Cozaar] 50 mg PO DAILY #30 tablet 03/30/19 [Rx] Pantoprazole [ProTONIX] 40 mg PO BIDAC #30 tab.cr 03/30/19 [Rx] Patient Handouts: Anemia, Gastrointestinal Bleeding, [id number], Iron-Rich Diet Referrals: Eren Koenig MD [Primary Care Provider] - 04/04/19 1:00 pm (check in @ 1245 pm) - Discharge Summary/Plan Comment DC Time >30 min.: No - Patient Data Vitals - Most Recent: Last Vital Signs Temp 98.2 F 03/30/19 08:00 Pulse 94 03/30/19 08:00 Resp 13 03/30/19 08:00 BP 177/61 H 03/30/19 08:21 Pulse Ox 96 03/30/19 08:00 Weight - Most Recent: 168 lb 12.8 oz I&O - Last 24 hours: Intake & Output 03/29/19 03/30/19 03/30/19 22:59 06:59 14:59 Intake Total 580 200 Output Total 550 750 Balance 30 -550 Lab Results - Last 24 hrs: Laboratory Results - last 24 hr 03/29/19 03/30/19 03/30/19 Range/Units 17:00 05:03 05:03 Hgb 8.9 L 8.0 L (12.0-15.0) g/dL Sodium 142 (140-148) mmol/L Potassium 4.2 (3.6-5.2) mmol/L Chloride 110 H (100-108) mmol/L Carbon Dioxide 27 (21-32) mmol/L Anion Gap 9.2 (5.0-14.0) mmol/L BUN 64 H (7-18) mg/dL Creatinine 1.5 H (0.6-1.0) mg/dL Est Cr Clr Drug Dosing 26.81 mL/min Estimated GFR (MDRD) 34 L (>60) Glucose 91 (74-106) mg/dL Calcium 7.4 L (8.5-10.1) mg/dL Med Orders - Current: Current Medications Acetaminophen (Tylenol) 650 mg PO Q4H PRN PRN Reason: Pain (Mild 1-3)/fever Hydrocodone Bitart/Acetaminophen ([place] 325-5 Mg) 1 tab PO Q4H PRN PRN Reason: Pain (moderate 4-6) Last Admin: 03/29/19 22:57 Dose: 1 tab Albuterol (Proventil Neb Soln) 2.5 mg NEB Q4H PRN PRN Reason: Shortness Of Breath/wheezing Albuterol/Ipratropium (Duoneb 3.0-0.5 Mg/3 Ml) 3 ml NEB QID PRN PRN Reason: Shortness Of Breath/wheezing Artificial Tears ([place] Mild To Moderate Ophth Soln) 0 ml EYEBOTH QID PRN PRN Reason: DRY EYES Docusate Sodium (Colace) 100 mg PO BID PRN PRN Reason: Constipation Furosemide (Lasix) 40 mg PO DAILY [facility] Last Admin: 03/30/19 08:20 Dose: 40 mg Gabapentin (Neurontin) 300 mg PO TID [facility] Last Admin: 03/30/19 08:24 Dose: 300 mg Losartan Potassium (Cozaar) 50 mg PO DAILY [facility] Last Admin: 03/30/19 08:21 Dose: 50 mg Magnesium Oxide (Magnesium Oxide) 400 mg PO TID [facility] Last Admin: 03/30/19 08:24 Dose: 400 mg Morphine Sulfate (Morphine) 2 mg IVPUSH Q2H PRN PRN Reason: Pain (severe 7-10) Last Admin: 03/28/19 03:32 Dose: 2 mg Ondansetron HCl (Zofran Odt) 4 mg PO Q6H PRN PRN Reason: Nausea able to take PO Ondansetron HCl (Zofran) 4 mg IV Q4H PRN PRN Reason: Nausea/Vomiting Pantoprazole Sodium (Protonix) 40 mg PO BIDAC [facility] Last Admin: 03/30/19 08:12 Dose: 40 mg Ropinirole HCl (Requip) 1.5 mg PO BID [facility] Last Admin: 03/30/19 08:17 Dose: 1.5 mg Spironolactone (Aldactone) 25 mg PO DAILY [facility] Last Admin: 03/30/19 08:18 Dose: 25 mg Trazodone HCl (Trazodone) 50 mg PO BEDTIME [facility] Last Admin: 03/29/19 20:25 Dose: Not Given Triamcinolone Acetonide (Triamcinolone Acetonide 0.1% Crm) 0 gm TOP TID PRN PRN Reason: Rash Discontinued Medications Hydrocodone Bitart/Acetaminophen ([place] 325-5 Mg) 1 tab PO ONETIME ONE Stop: 03/28/19 01:38 Last Admin: 03/28/19 01:42 Dose: 1 tab Albuterol/Ipratropium (Duoneb 3.0-0.5 Mg/3 Ml) 3 ml NEB ONETIME ONE Stop: 03/28/19 00:15 Last Admin: 03/28/19 00:24 Dose: 3 ml Chlorthalidone (Chlorthalidone) 25 mg PO DAILY [facility] Last Admin: 03/29/19 08:55 Dose: 25 mg Furosemide (Lasix) 80 mg PO DAILY [facility] Last Admin: 03/29/19 08:54 Dose: 80 mg Sodium Chloride (Normal Saline) 1,000 mls @ 75 mls/hr IV ASDIRECTED [facility] Last Admin: 03/29/19 04:44 Dose: 75 mls/hr Losartan Potassium (Cozaar) 100 mg PO DAILY [facility] Last Admin: 03/29/19 08:56 Dose: 100 mg Pantoprazole Sodium (Protonix Iv) 40 mg IVPUSH ONETIME ONE Stop: 03/28/19 00:40 Last Admin: 03/28/19 00:47 Dose: 40 mg Pantoprazole Sodium (Protonix Iv) 40 mg IV DAILY [facility] Last Admin: 03/28/19 09:09 Dose: 40 mg Pantoprazole Sodium (Protonix Iv) 40 mg IV Q12H [facility] Last Admin: 03/29/19 09:00 Dose: 40 mg - Exam General: Reports: Alert, Oriented, Cooperative Lungs: Reports: Clear to Auscultation, Normal Respiratory Effort Cardiovascular: Reports: Regular Rate, Irregular Rhythm, Murmurs GI/Abdominal Exam: Soft, Non-Tender, No Organomegaly, No Distention Extremities: Non-Tender, No Pedal Edema
== END 2019-03-30 12:16 | disposition home or self-care (01) | DRG 812 ==
LOC: JP.ED 23:35 → JP.ICU 03-28 01:38 → UNDOADMIN 03-28 01:38 → UNDODISIN 03-30 11:35
PROVIDERS: ADMIT Hospitalist; ATTEND Hospitalist
PROC: 30233N1 Transfusion of Nonautologous Red Blood Cells into Peripheral Vein, Percutaneous Approach (ICD-10-PCS; principal; 2019-03-28)
DX: D62 Acute posthemorrhagic anemia (principal); D50.0 Iron deficiency anemia secondary to blood loss (chronic); R53.1 Weakness; N17.9 Acute kidney failure, unspecified; H54.7 Unspecified visual loss; I24.8 Other forms of acute ischemic heart disease; K92.1 Melena; I10 Essential (primary) hypertension; J45.909 Unspecified asthma, uncomplicated; I27.20 Pulmonary hypertension, unspecified; K52.9 Noninfective gastroenteritis and colitis, unspecified; R32 Unspecified urinary incontinence; E86.0 Dehydration; M19.90 Unspecified osteoarthritis, unspecified site; M54.9 Dorsalgia, unspecified; G89.29 Other chronic pain; M81.0 Age-related osteoporosis without current pathological fracture; M32.9 Systemic lupus erythematosus, unspecified; I87.2 Venous insufficiency (chronic) (peripheral); I25.10 Atherosclerotic heart disease of native coronary artery without angina pectoris; Z99.81 Dependence on supplemental oxygen; I11.0 Hypertensive heart disease with heart failure; I50.9 Heart failure, unspecified; J43.9 Emphysema, unspecified; E78.00 Pure hypercholesterolemia, unspecified; E66.9 Obesity, unspecified; E11.21 Type 2 diabetes mellitus with diabetic nephropathy; Z79.01 Long term (current) use of anticoagulants; Z86.718 Personal history of other venous thrombosis and embolism; Z88.8 Allergy status to other drugs, medicaments and biological substances; Z79.899 Other long term (current) drug therapy
CPT/HCPCS: 36415; 71045; 80053; 81001; 82272; 84484; 85025; 86850; 86900; 86901; 86920; 86922; 94640; 96374; 99285; C9113; 11042; 36430; 80048; 82607; 82746; 85018; 94762; A9270-GY; J2270; J7030; J7620-GY; P9016

== ENCOUNTER 2019-06-06 10:09 | Inpatient (IN) | payer MEDICARE ==
[2019-06-06] MEDS ORDERED: Nitroglycerin 0.4 MG Tab.SL SL STA (10:57)
[2019-06-06] MEDS ORDERED: Bumetanide 2.5 MG/10 ML MDV IVPUSH ONE (10:57)
[2019-06-06] MEDS ORDERED: Sodium Chloride 0.9% 10 ML Syringe FLUSH PRN ×3 (10:57→14:28)
--- NOTE | 2019-06-06 11:04 | EDM.PDOC ---
ED HPI GENERAL MEDICAL PROBLEM - General Chief Complaint: Respiratory Problem Stated Complaint: FROM CLINIC COUGHING Time Seen by Provider: 06/06/19 10:51 Source of Information: Reports: Patient, Provider, RN Notes Reviewed History Limitations: Reports: No Limitations - History of Present Illness INITIAL COMMENTS - FREE TEXT/NARRATIVE: 74-year-old female presents emergency department a complaint of shortness of breath, she has a known history of congestive heart failure as well as oxygen dependence at night and chronic obstructive pulmonary disease. She states over the last month she has been progressively more short of breath with a 40 pound weight gain. I did receive a call from her primary care provider who has been evaluating her in the clinic trying combinations of furosemide and Bumex to help relieve the congestive heart failure recently added metolazone. However the patient states she has not used any Lasix for the last 72 hours. Did report to clinic today was found to be hypoxic in 86% she normally is not hypoxic during the day only uses oxygen at night - Related Data Allergies Allergy/AdvReac Type Severity Reaction Status Date / Time hydrochlorothiazide Allergy Other Verified 06/06/19 10:43 [From Dyazide] loperamide [From Imodium A-D] Allergy Other Verified 06/06/19 10:43 oxybutynin Allergy Other Verified 06/06/19 10:43 [id number] Reductase Allergy Other Verified 06/06/19 10:43 Inhibitor triamterene [From Dyazide] Allergy Other Verified 06/06/19 10:43 budesonide [From Symbicort] AdvReac Nausea and Verified 06/06/19 10:43 Vomiting formoterol fumarate AdvReac Nausea and Verified 06/06/19 10:43 [From Symbicort] Vomiting pregabalin [From Lyrica] AdvReac Headache Verified 06/06/19 10:43 tizanidine AdvReac Nausea Verified 06/06/19 10:43 Home Meds: Home Meds Hydroxychloroquine Sulfate 200 mg PO DAILY 05/09/13 [History] cycloSPORINE [Restasis] 1 drop EYEBOTH BID 05/09/13 [History] Albuterol [Proventil Neb Soln] 3 ml INH Q6H PRN 09/22/15 [History] Albuterol [Ventolin HFA] 2 puff INH Q6H PRN 09/22/15 [History] Magnesium Oxide 400 mg PO TID 05/17/16 [History] Diclofenac Sodium [Voltaren] 4 gm TOP QID 09/26/18 [History] Gabapentin [Neurontin] 300 - 600 mg PO TID 09/26/18 [History] Triamcinolone Acetonide [Kenalog 0.1% Crm] 1 applic TOP TID PRN 09/26/18 [ History] Ferrous Sulfate 325 mg PO TIDAC 12/24/18 [History] rOPINIRole [Requip] 1.5 tab PO BID 12/24/18 [History] Spironolactone [Aldactone] 25 mg PO DAILY 02/13/19 [History] Calcium Carbonate/Vitamin D3 [Caltrate 600+D 1500 MG-400 Units] 1 tab PO BID # 60 tablet 02/16/19 [Rx] Losartan [Cozaar] 50 mg PO DAILY #30 tablet 03/30/19 [Rx] Acetaminophen/HYDROcodone [[place] 325-5 MG] 1 tab PO Q6H PRN 06/06/19 [History] Alendronate Sodium [Fosamax] 70 mg PO DAILY 06/06/19 [History] Carvedilol [Coreg] 3.125 mg PO BID 06/06/19 [History] Cholecalciferol (Vitamin D3) [Vitamin D3] 1,000 unit PO BID 06/06/19 [History] Cyclobenzaprine [Flexeril] 5 mg PO TID 06/06/19 [History] Fluticasone Propionate [Flonase] 2 spray IH DAILY 06/06/19 [History] Pantoprazole [ProTONIX] 40 mg PO DAILY 06/06/19 [History] metOLazone [Metolazone] 5 mg PO DAILY 06/06/19 [History] Past Medical History HEENT History: Reports: Glaucoma, Impaired Vision Other HEENT History: Otitis externa of right ear, bilateral dry eyes Cardiovascular History: Reports: CAD, Heart Murmur, High Cholesterol, Hypertension, SOB on Exertion Other Cardiovascular History: RBBB,ventricular diastolic dysfunction Respiratory History: Reports: Asthma, COPD, Other (See Below) Other Respiratory History: pulmonary hypertension. Uses O2 at night. Gastrointestinal History: Reports: Chronic Diarrhea Genitourinary History: Reports: Diabetic Nephropathy, Urinary Incontinence YARDMASTER History: Reports: Musculoskeletal History: Reports: Arthritis, Back Pain, Chronic, Fracture, Osteoporosis Other Musculoskeletal History: fx ankle Endocrine/Metabolic History: Reports: Diabetes, Type II, Obesity/BMI 30+, Osteoporosis Other Endocrine/Metabolic History: lupus Hematologic History: Reports: Anticoagulation Therapy Other Hematologic History: hx of is no longer on Immunologic History: Reports: SLE Other Immunologic History: lupus anticoagulant positive Dermatologic History: Reports: Venous Stasis Dermatitis - Infectious Disease History Infectious Disease History: Reports: Chicken Pox - Past Surgical History Head Surgeries/Procedures: Reports: None HEENT Surgical History: Reports: None Cardiovascular Surgical History: Reports: None Respiratory Surgical History: Reports: None GI Surgical History: Reports: None Female Surgical History: Reports: Breast Biopsy Endocrine Surgical History: Reports: None Neurological Surgical History: Reports: None Musculoskeletal Surgical History: Reports: Other (See Below) Other Musculoskeletal Surgeries/Procedures:: left ankle repair Dermatological Surgical History: Reports: Skin Biopsy Social & Family History - Family History Family Medical History: Noncontributory - Tobacco Use Smoking Status *Q: Former Smoker Used Tobacco, but Quit: Yes Month/Year Tobacco Last Used: 2006 Second Hand Smoke Exposure: No - Caffeine Use Caffeine Use: Reports: Coffee Other Caffeine Use: 3 cups coffee daily, 1 can pop dailty - Recreational Drug Use Recreational Drug Use: No - Living Situation & Occupation Living situation: Reports: Single, Alone (lives alone in her home in [place], [place]., 2 children; son Palmer,who visits on weekends, Daughter two years ago of overdose. 3 grandchildren.) ED ROS GENERAL - Review of Systems Review Of Systems: See Below Constitutional: Reports: No Symptoms HEENT: Reports: No Symptoms Respiratory: Reports: Shortness of Breath, Wheezing, Cough. Denies: Sputum Cardiovascular: Reports: Dyspnea on Exertion GI/Abdominal: Reports: Other (Blood on the tissue paper last week colonoscopy within the year) : Reports: No Symptoms Musculoskeletal: Reports: No Symptoms ED EXAM, GENERAL - Physical Exam Exam: See Below Exam Limited By: No Limitations General Appearance: Alert, No Apparent Distress Head: Atraumatic, Normocephalic Neck: Normal Inspection, Supple, Non-Tender, Full Range of Motion Respiratory/Chest: No Respiratory Distress, Decreased Breath Sounds, Crackles, Rhonchi Cardiovascular: Regular Rate, Rhythm, No Murmur GI/Abdominal: Soft, Non-Tender Extremities: Non-Tender, Pedal Edema Course - Vital Signs Last Recorded V/S: Last Vital Signs Temp 97.7 F 06/06/19 10:36 Pulse 53 L 06/06/19 10:36 Resp 24 H 06/06/19 10:36 BP 179/60 H 06/06/19 11:37 Pulse Ox 98 06/06/19 10:36 - Orders/Labs/Meds Orders: Active Orders 24 hr Category Date Time Status Peripheral IV Care [RC] . DIRECTED Care 06/06/19 10:59 Active Sodium Chloride 0.9% [Saline Flush] Med 06/06/19 10:57 Active 10 ml FLUSH ASDIRECTED PRN Sodium Chloride 0.9% [Saline Flush] Med 06/06/19 10:57 Active 10 ml FLUSH ASDIRECTED PRN Peripheral IV Insertion Adult [OM.PC] Urgent Oth 06/06/19 10:57 Ordered Medication Orders Sodium Chloride (Saline Flush) 10 ml FLUSH ASDIRECTED PRN PRN Reason: Keep Vein Open Sodium Chloride (Saline Flush) 10 ml FLUSH ASDIRECTED PRN PRN Reason: Keep Vein Open Last Admin: 06/06/19 11:18 Dose: 10 ml Labs: Laboratory Tests 06/06/19 06/06/19 06/06/19 Range/Units 11:07 11:07 11:07 WBC 5.8 (4.5-11.0) K/uL RBC 4.11 (3.30-5.50) M/uL Hgb 11.8 L D (12.0-15.0) g/dL Hct 39.5 (36.0-48.0) % MCV 96 (80-98) fL MCH 29 (27-31) pg MCHC 30 L (32-36) % Plt Count 154 (150-400) K/uL Neut % (Auto) 75 H (36-66) % Lymph % (Auto) 16 L (24-44) % [place] % (Auto) 8 H (2-6) % Eos % (Auto) 1 L (2-4) % Baso % (Auto) 1 (0-1) % Sodium 143 (140-148) mmol/L Potassium 4.9 (3.6-5.2) mmol/L Chloride 109 H (100-108) mmol/L Carbon Dioxide 31 (21-32) mmol/L Anion Gap 7.9 (5.0-14.0) mmol/L BUN 41 H (7-18) mg/dL Creatinine 1.2 H (0.6-1.0) mg/dL Est Cr Clr Drug Dosing 33.52 mL/min Estimated GFR (MDRD) 44 L (>60) Glucose 141 H (74-106) mg/dL Calcium 7.6 L (8.5-10.1) mg/dL Total Bilirubin 0.4 D (0.2-1.0) mg/dL AST 26 (15-37) U/L ALT 24 (12-78) U/L Alkaline Phosphatase 100 (46-116) U/L Troponin I 0.035 (0.000-0.056) ng/mL NT-Pro-B Natriuret Pep 8964 H (5-125) pg/mL Total Protein 6.9 (6.4-8.2) g/dL Albumin 2.4 L (3.4-5.0) g/dL Globulin 4.5 H (2.3-3.5) g/dL Albumin/Globulin Ratio 0.5 L (1.2-2.2) Meds: Medications Generic Name Dose Route Start Last Admin Trade Name Freq PRN Reason Stop Dose Admin Sodium Chloride 10 ml 06/06/19 10:57 Saline Flush FLUSH ASDIRECTED PRN Keep Vein Open Sodium Chloride 10 ml 06/06/19 10:57 06/06/19 11:18 Saline Flush FLUSH 10 ml ASDIRECTED PRN Administration Keep Vein Open Discontinued Medications Generic Name Dose Route Start Last Admin Trade Name Freq PRN Reason Stop Dose Admin Bumetanide 2 mg 06/06/19 10:57 06/06/19 11:18 Bumex IVPUSH 06/06/19 10:58 2 mg ONETIME ONE Administration Nitroglycerin 0.4 mg 06/06/19 10:57 06/06/19 11:37 Nitrostat SL 06/06/19 10:58 0.4 mg NOW STA Administration Departure - Departure Time of Disposition: 12:41 Disposition: Admitted As Inpatient 68 Condition: Fair Clinical Impression: Congestive heart failure Qualifiers: Heart failure type: diastolic Heart failure chronicity: acute on chronic Qualified Code(s): I50.33 - Acute on chronic diastolic (congestive) heart failure - Discharge Information Referrals: Es Stewart DO [Primary Care Provider] - Forms: ED Department Discharge Sepsis Event Note - Evaluation Sepsis Screening Result: No Definite Risk - Focused Exam Vital Signs: Vital Signs Temp Pulse Resp BP BP Pulse Ox 06/06/19 11:37 179/60 H 06/06/19 10:36 97.7 F 53 L 24 H 154/62 H 98 06/06/19 10:31 98 06/06/19 10:30 97.7 F 53 L 24 H 154/62 H 87 L Date Exam was Performed: 06/06/19 Time Exam was Performed: 12:40 - My Orders Last 24 Hours: My Active Orders 06/06/19 10:57 Sodium Chloride 0.9% [Saline Flush] 10 ml FLUSH ASDIRECTED PRN Sodium Chloride 0.9% [Saline Flush] 10 ml FLUSH ASDIRECTED PRN Peripheral IV Insertion Adult [OM.PC] Urgent 06/06/19 10:59 Peripheral IV Care [RC] . DIRECTED - Assessment/Plan Last 24 Hours: My Active Orders 06/06/19 10:57 Sodium Chloride 0.9% [Saline Flush] 10 ml FLUSH ASDIRECTED PRN Sodium Chloride 0.9% [Saline Flush] 10 ml FLUSH ASDIRECTED PRN Peripheral IV Insertion Adult [OM.PC] Urgent 06/06/19 10:59 Peripheral IV Care [RC] . DIRECTED Plan: Assessment Acuity = acute Site and laterality = exacerbation diastolic congestive heart failure Etiology = unknown Manifestations = dyspnea Location of injury = Home Lab values = CBC unremarkable creatinine elevated 1.2 consistent with chronic renal failure stage G3 B troponin elevated at 0.035 consistent with weak type pattern BNP markedly elevated 8964 albumin low at 2.4 consistent with hypoalbuminemia chest x-ray consistent with congestive heart failure type pattern Plan Call discussed case with hospitalist on-call at 1235 he kindly agreed to come and evaluate the patient in the emergency department for admission thus far she received 1 sublingual nitro which did provide good relief she has been given 2 mg of Bumex without diuresis at this time remains hypoxic when she falls asleep but awake she will maintain her oxygen saturation This note was dictated using [employer] voice recognition software please call with any questions on syntax or grammar.
--- NOTE | 2019-06-06 11:21 | CR ---
CHEST: 2 view CLINICAL HISTORY:SOB COMPARISON:Portable 03/28/2019 FINDINGS: Heart is enlarged. Pulmonary vascularity is mildly cephalized. There is patchy density in the right infrahilar region which is likely in the medial segment of the right middle lobe. No effusion is identified. There are atherosclerotic changes in the aorta. IMPRESSION: CARDIOMEGALY with mild vascular cephalization may represent some pulmonary venous hypertension from CHF. Patchy right infrahilar density may represent some atelectasis or infiltrate in the right middle lobe
--- NOTE | 2019-06-06 13:09 | PCM.HP.2 ---
H&P History of Present Illness - General Date of Service: 06/06/19 Admit Problem/Dx: Admission Diagnosis/Problem Admission Diagnosis/Problem Congestive heart failure Source of Information: Patient, Old Records, Provider, RN Notes Reviewed History Limitations: Reports: No Limitations - History of Present Illness Initial Comments - Free Text/Narative: Ms. Obrien is a 74-year-old woman who was admitted through the emergency department with increased peripheral edema and pulmonary edema, secondary to diastolic congestive heart failure. She is noted slow increase in peripheral edema over the past 6 weeks, now over the past week or's developed progressive shortness of breath. Chest x-ray shows evidence of CHF and she has marked edema on examination. She also recently had upper respiratory tract infection with exacerbation of her COPD, persistent loose cough. The symptoms of chest pain or pressure no recent fevers chills or sweats. - Related Data Allergies/Adverse Reactions: Allergies Allergy/AdvReac Type Severity Reaction Status Date / Time hydrochlorothiazide Allergy Other Verified 06/06/19 10:43 [From Dyazide] loperamide [From Imodium A-D] Allergy Other Verified 06/06/19 10:43 oxybutynin Allergy Other Verified 06/06/19 10:43 Aumogbt-Akz-Tga Reductase Allergy Other Verified 06/06/19 10:43 Inhibitor triamterene [From Dyazide] Allergy Other Verified 06/06/19 10:43 budesonide [From Symbicort] AdvReac Nausea and Verified 06/06/19 10:43 Vomiting formoterol fumarate AdvReac Nausea and Verified 06/06/19 10:43 [From Symbicort] Vomiting pregabalin [From Lyrica] AdvReac Headache Verified 06/06/19 10:43 tizanidine AdvReac Nausea Verified 06/06/19 10:43 Home Medications: Home Meds Hydroxychloroquine Sulfate 200 mg PO DAILY 05/09/13 [History] cycloSPORINE [Restasis] 1 drop EYEBOTH BID 05/09/13 [History] Albuterol [Proventil Neb Soln] 3 ml INH Q6H PRN 09/22/15 [History] Albuterol [Ventolin HFA] 2 puff INH Q6H PRN 09/22/15 [History] Magnesium Oxide 400 mg PO TID 05/17/16 [History] Diclofenac Sodium [Voltaren] 4 gm TOP QID 09/26/18 [History] Gabapentin [Neurontin] 300 - 600 mg PO TID 09/26/18 [History] Triamcinolone Acetonide [Kenalog 0.1% Crm] 1 applic TOP TID PRN 09/26/18 [ History] Ferrous Sulfate 325 mg PO TIDAC 12/24/18 [History] rOPINIRole [Requip] 1.5 tab PO BID 12/24/18 [History] Spironolactone [Aldactone] 25 mg PO DAILY 02/13/19 [History] Calcium Carbonate/Vitamin D3 [Caltrate 600+D 1500 MG-400 Units] 1 tab PO BID # 60 tablet 02/16/19 [Rx] Losartan [Cozaar] 50 mg PO DAILY #30 tablet 03/30/19 [Rx] Acetaminophen/HYDROcodone [[place] 325-5 MG] 1 tab PO Q6H PRN 06/06/19 [History] Alendronate Sodium [Fosamax] 70 mg PO DAILY 06/06/19 [History] Carvedilol [Coreg] 3.125 mg PO BID 06/06/19 [History] Cholecalciferol (Vitamin D3) [Vitamin D3] 1,000 unit PO BID 06/06/19 [History] Cyclobenzaprine [Flexeril] 5 mg PO TID 06/06/19 [History] Fluticasone Propionate [Flonase] 2 spray IH DAILY 06/06/19 [History] Pantoprazole [ProTONIX] 40 mg PO DAILY 06/06/19 [History] metOLazone [Metolazone] 5 mg PO DAILY 06/06/19 [History] Past Medical History HEENT History: Reports: Glaucoma, Impaired Vision Other HEENT History: Otitis externa of right ear, bilateral dry eyes Cardiovascular History: Reports: CAD, Heart Murmur, High Cholesterol, Hypertension, SOB on Exertion Other Cardiovascular History: RBBB,ventricular diastolic dysfunction Respiratory History: Reports: Asthma, COPD, Other (See Below) Other Respiratory History: pulmonary hypertension. Uses O2 at night. Gastrointestinal History: Reports: Chronic Diarrhea Genitourinary History: Reports: Diabetic Nephropathy, Urinary Incontinence [employer] History: Reports: Musculoskeletal History: Reports: Arthritis, Back Pain, Chronic, Fracture, Osteoporosis Other Musculoskeletal History: fx ankle Endocrine/Metabolic History: Reports: Diabetes, Type II, Obesity/BMI 30+, Osteoporosis Other Endocrine/Metabolic History: lupus Hematologic History: Reports: Anticoagulation Therapy Other Hematologic History: hx of is no longer on Immunologic History: Reports: SLE Other Immunologic History: lupus anticoagulant positive Dermatologic History: Reports: Venous Stasis Dermatitis - Infectious Disease History Infectious Disease History: Reports: Chicken Pox - Past Surgical History Head Surgeries/Procedures: Reports: None HEENT Surgical History: Reports: None Cardiovascular Surgical History: Reports: None Respiratory Surgical History: Reports: None GI Surgical History: Reports: None Female Surgical History: Reports: Breast Biopsy Endocrine Surgical History: Reports: None Neurological Surgical History: Reports: None Musculoskeletal Surgical History: Reports: Other (See Below) Other Musculoskeletal Surgeries/Procedures:: left ankle repair Dermatological Surgical History: Reports: Skin Biopsy Social & Family History - Family History Family Medical History: Noncontributory - Tobacco Use Smoking Status *Q: Former Smoker Used Tobacco, but Quit: Yes Month/Year Tobacco Last Used: 2006 Second Hand Smoke Exposure: No - Caffeine Use Caffeine Use: Reports: Coffee Other Caffeine Use: 3 cups coffee daily, 1 can pop dailty - Recreational Drug Use Recreational Drug Use: No - Living Situation & Occupation Living situation: Reports: Single, Alone (lives alone in her home in [place], [place]., 2 children; son Palmer,who visits on weekends, Daughter two years ago of overdose. 3 grandchildren.) H&P Review of Systems - Review of Systems: Review Of Systems: See Below General: Reports: Malaise, Weakness, Fatigue. Denies: Fever, Chills HEENT: Reports: No Symptoms Pulmonary: Reports: Shortness of Breath, Cough, Sputum. Denies: Wheezing, Pleuritic Chest Pain, Hemoptysis Cardiovascular: Reports: Dyspnea on Exertion, Edema. Denies: Chest Pain, Palpitations, Orthopnea, PND, Lightheadedness Gastrointestinal: Reports: No Symptoms Genitourinary: Reports: No Symptoms Musculoskeletal: Reports: No Symptoms Skin: Reports: No Symptoms Psychiatric: Reports: No Symptoms Neurological: Reports: No Symptoms Hematologic/Lymphatic: Reports: No Symptoms Immunologic: Reports: No Symptoms Exam - Exam Exam: See Below - Vital Signs Vital Signs: Last Vital Signs Temp 97.7 F 06/06/19 10:36 Pulse 53 L 06/06/19 10:36 Resp 24 H 06/06/19 10:36 BP 179/60 H 06/06/19 11:37 Pulse Ox 98 06/06/19 10:36 Weight: 181 lb - Exam Quality Assessment: Supplemental Oxygen, DVT Prophylaxis General: Alert, Oriented, Cooperative, Moderate Distress HEENT: Conjunctiva Clear, Hearing Intact, Mucosa Moist & [place], Normal Nasal Septum, Posterior Pharynx Clear, Pupils Equal Neck: Supple, Trachea Midline, +2 Carotid Pulse wo Bruit Lungs: Clear to Auscultation, Normal Respiratory Effort Cardiovascular: Regular Rate, Regular Rhythm, Normal S1, Normal S2. No: Systolic Murmur, Diastolic Murmur GI/Abdominal Exam: Soft, Non-Tender, No Organomegaly, No Distention Back Exam: Normal Inspection, Full Range of Motion Extremities: Non-Tender, Pedal Edema Skin: Warm, Dry, Intact Neurological: Cranial Nerves Intact, Strength Equal Bilateral, Normal Speech, Normal Tone, Sensation Intact. No: Focal Deficit Neuro Extensive - Mental Status: Alert, Oriented x3, Normal Mood/Affect, Normal Cognition, Memory Intact - Patient Data Lab Results Last 24 hrs: Laboratory Results - last 24 hr 06/06/19 06/06/19 06/06/19 Range/Units 11:07 11:07 11:07 WBC 5.8 (4.5-11.0) K/uL RBC 4.11 (3.30-5.50) M/uL Hgb 11.8 L D (12.0-15.0) g/dL Hct 39.5 (36.0-48.0) % MCV 96 (80-98) fL MCH 29 (27-31) pg MCHC 30 L (32-36) % Plt Count 154 (150-400) K/uL Neut % (Auto) 75 H (36-66) % Lymph % (Auto) 16 L (24-44) % [place] % (Auto) 8 H (2-6) % Eos % (Auto) 1 L (2-4) % Baso % (Auto) 1 (0-1) % Sodium 143 (140-148) mmol/L Potassium 4.9 (3.6-5.2) mmol/L Chloride 109 H (100-108) mmol/L Carbon Dioxide 31 (21-32) mmol/L Anion Gap 7.9 (5.0-14.0) mmol/L BUN 41 H (7-18) mg/dL Creatinine 1.2 H (0.6-1.0) mg/dL Est Cr Clr Drug Dosing 33.52 mL/min Estimated GFR (MDRD) 44 L (>60) Glucose 141 H (74-106) mg/dL Calcium 7.6 L (8.5-10.1) mg/dL Total Bilirubin 0.4 D (0.2-1.0) mg/dL AST 26 (15-37) U/L ALT 24 (12-78) U/L Alkaline Phosphatase 100 (46-116) U/L Troponin I 0.035 (0.000-0.056) ng/mL NT-Pro-B Natriuret Pep 8964 H (5-125) pg/mL Total Protein 6.9 (6.4-8.2) g/dL Albumin 2.4 L (3.4-5.0) g/dL Globulin 4.5 H (2.3-3.5) g/dL Albumin/Globulin Ratio 0.5 L (1.2-2.2) Result Diagrams: 06/06/19 11:07 06/06/19 11:07 Sepsis Event Note - Evaluation Sepsis Screening Result: No Definite Risk - Focused Exam Vital Signs: Vital Signs Temp Pulse Resp BP BP Pulse Ox 06/06/19 11:37 179/60 H 06/06/19 10:36 97.7 F 53 L 24 H 154/62 H 98 06/06/19 10:31 98 06/06/19 10:30 97.7 F 53 L 24 H 154/62 H 87 L Date Exam was Performed: 06/06/19 Time Exam was Performed: 13:23 *Q Meaningful Use (ADM) - VTE Risk Assess *Q Each Risk Factor Represents 1 Point: Obesity ( BMI > 25 kg/m2), Congestive heart failure (CHF), Abnormal Pulmonary Function (COPD) Total Score 1 Point Risk Factors: 3 Each Risk Factor Represents 2 Points: Age 60 - 74 Years Total Score 2 Point Risk Factors: 2 Each Risk Factor Represents 3 Points: None Total Score 3 Point Risk Factors: 0 Each Risk Factor Represents 5 Points: None Total Score 5 Point Risk Factors: 0 Venous Thromboembolism Risk Factor Score *Q: 5 Problem List Initiated/Reviewed/Updated: Yes Orders Last 24hrs: Active Orders 24 hr Category Date Time Status Patient Status Manage Transfer [TRANSFER] Routine ADT 06/06/19 12:56 Active Peripheral IV Care [RC] . DIRECTED Care 06/06/19 10:59 Active Echo Comp wo Cont [US] Stat Exams 06/06/19 13:07 Ordered Sodium Chloride 0.9% [Saline Flush] Med 06/06/19 10:57 Active 10 ml FLUSH ASDIRECTED PRN Sodium Chloride 0.9% [Saline Flush] Med 06/06/19 10:57 Active 10 ml FLUSH ASDIRECTED PRN Peripheral IV Insertion Adult [OM.PC] Urgent Oth 06/06/19 10:57 Ordered Resuscitation Status Routine Resus Stat 06/06/19 13:01 Ordered Medication Orders Sodium Chloride (Saline Flush) 10 ml FLUSH ASDIRECTED PRN PRN Reason: Keep Vein Open Sodium Chloride (Saline Flush) 10 ml FLUSH ASDIRECTED PRN PRN Reason: Keep Vein Open Last Admin: 06/06/19 11:18 Dose: 10 ml Assessment/Plan Comment:: ASSESSMENT AND PLAN DIASTOLIC CONGESTIVE HEART FAILURE-progressive increase in peripheral edema over the last several weeks, increased shortness of breath with hypoxia over the last week. -2 g sodium diet -Bumex 2 mg IV given in the emergency department -Bumex 4 mg IV later this evening reassess in a.m. -Echocardiogram to reassess systolic and diastolic function COPD EXACERBATION SECONDARY TO RECENT VIRAL INFECTION-expiratory wheezes with loose productive cough -Nebulizer therapy as needed -Supplemental oxygen as needed -Solu-Medrol 40 mg IV every 8 hours HYPOXIA-likely secondary to current exacerbations of CHF and COPD -Management as above RECENT HISTORY OF SEVERE ANEMIA-essentially resolved MAINTENANCE ISSUES -DVT prophylaxis; Lovenox 40 mg subcu daily -GI prophylaxis; continue outpatient PPI therapy -Villeda catheter; not indicated -Nutrition; 2 g sodium diet -Nicotine dependence; not required CODE STATUS-FULL CODE ADMISSION STATUS-patient will be admitted to inpatient status, expect at least a 2 night hospital stay for evaluation and management of problems as outlined above. At the time of this admission I do not reasonably expected evaluation and management of this problem will require more than a 96 hour hospital stay. DISPOSITION-anticipate discharge to home after the hospital stay. PRIMARY CARE PROVIDER-Dr. Es Stewart - Mortality Measure Prognosis:: Good
[2019-06-06] MEDS ORDERED: Albuterol 0.083% 2.5 MG/3 ML Neb Soln NEB PRN (14:28)
[2019-06-06] MEDS ORDERED: Albuterol/Ipratropium 3.0-0.5 MG/3 ML Neb Soln NEB PRN (14:28)
[2019-06-06] MEDS ORDERED: Ondansetron 4 MG/2 ML SDV IV PRN (14:28)
[2019-06-06] MEDS ORDERED: Polyethylene Glycol 3350 Powder 17 GM Packet PO PRN (14:28)
[2019-06-06] MEDS ORDERED: Hypromellose 0.3% Ophth Soln 15 ML Bottle EYEBOTH PRN (14:41)
[2019-06-06] MEDS: Enoxaparin 40 MG/0.4 ML Syringe SUBCUT SCH (16:19)
[2019-06-06] MEDS: Diclofenac Sodium 1% Gel 100 GM Tube TOP SCH ×2 (16:19→21:51)
[2019-06-06] MEDS: methylPREDNISolone Sodium Succinate 40 MG/1 ML SDV IVPUSH SCH ×2 (16:19→21:51)
[2019-06-06] MEDS: Cyclobenzaprine 10 MG Tab PO SCH ×2 (16:20→21:50)
[2019-06-06] MEDS: Magnesium Oxide 400 MG Tab PO SCH ×2 (16:21→21:51)
[2019-06-06] MEDS: Gabapentin 300 MG Cap PO SCH ×2 (16:22→21:51)
[2019-06-06] MEDS ORDERED: Bumetanide 1 MG/4 ML MDV IVPUSH ONE (19:00)
[2019-06-06] MEDS: Carvedilol 3.125 MG Tab PO SCH (21:59)
[2019-06-07] MEDS: Acetaminophen/HYDROcodone 325-5 MG Tab PO PRN ×3 (00:06→19:50)
[2019-06-07] MEDS: methylPREDNISolone Sodium Succinate 40 MG/1 ML SDV IVPUSH SCH ×3 (05:41→21:41)
[2019-06-07] MEDS: Diclofenac Sodium 1% Gel 100 GM Tube TOP SCH ×4 (05:42→21:40)
[2019-06-07] MEDS: Losartan 50 MG Tab PO SCH (08:05)
[2019-06-07] MEDS: Spironolactone 25 MG Tab PO SCH (08:05)
[2019-06-07] MEDS: Pantoprazole 40 MG Tab.CR PO SCH (08:05)
[2019-06-07] MEDS: Carvedilol 3.125 MG Tab PO SCH ×2 (08:05→20:00)
[2019-06-07] MEDS: Gabapentin 300 MG Cap PO SCH ×3 (08:06→19:59)
[2019-06-07] MEDS: Cyclobenzaprine 10 MG Tab PO SCH ×3 (08:06→19:59)
[2019-06-07] MEDS: Hydroxychloroquine 200 MG Tab PO SCH (08:06)
[2019-06-07] MEDS: Magnesium Oxide 400 MG Tab PO SCH ×3 (08:06→19:59)
[2019-06-07] MEDS ORDERED: Alendronate 70 MG Tab PO SCH (09:00)
[2019-06-07] MEDS: Bumetanide 2.5 MG/10 ML MDV IVPUSH SCH ×2 (09:47→19:52)
[2019-06-07] MEDS: Enoxaparin 40 MG/0.4 ML Syringe SUBCUT SCH (15:56)
[2019-06-07] MEDS ORDERED: Pramipexole 0.25 MG Tab PO SCH (21:00)
[2019-06-08] MEDS: Diclofenac Sodium 1% Gel 100 GM Tube TOP SCH ×2 (06:49→09:10)
[2019-06-08] MEDS: methylPREDNISolone Sodium Succinate 40 MG/1 ML SDV IVPUSH SCH (06:50)
[2019-06-08] MEDS: Pantoprazole 40 MG Tab.CR PO SCH (07:24)
[2019-06-08] MEDS: Bumetanide 2.5 MG/10 ML MDV IVPUSH SCH ×2 (07:24→08:06)
[2019-06-08] MEDS: Carvedilol 3.125 MG Tab PO SCH ×2 (07:25→08:06)
[2019-06-08] MEDS: Spironolactone 25 MG Tab PO SCH ×2 (07:25→08:06)
[2019-06-08 07:26] VITALS: PULSE 80
[2019-06-08] MEDS: Losartan 50 MG Tab PO SCH ×2 (07:26→08:06)
[2019-06-08] MEDS: Cyclobenzaprine 10 MG Tab PO SCH (09:09)
[2019-06-08] MEDS: Gabapentin 300 MG Cap PO SCH (09:09)
[2019-06-08] MEDS: Magnesium Oxide 400 MG Tab PO SCH (09:09)
[2019-06-08] MEDS: Hydroxychloroquine 200 MG Tab PO SCH (09:10)
[2019-06-08 09:24] VITALS: BP 188/72
--- NOTE | 2019-06-08 11:33 | PCM.PN ---
- General Info Date of Service: 06/07/19 Subjective Update: Ms. Obrien has improved since admission, good diuresis thus far with less shortness of breath and peripheral edema. Continues to require supplemental oxygen, she does use oxygen at home on a chronic basis. Vital signs have otherwise been stable and she has remained afebrile. Functional Status: Reports: Tolerating Diet, Ambulating, Urinating - Review of Systems General: Reports: Weakness. Denies: Fever, Chills Pulmonary: Reports: Shortness of Breath, Wheezing. Denies: Pleuritic Chest Pain , Cough, Sputum, Hemoptysis Cardiovascular: Reports: Dyspnea on Exertion, Edema. Denies: Chest Pain, Palpitations, Orthopnea, PND, Lightheadedness Gastrointestinal: Reports: No Symptoms - Patient Data Vitals - Most Recent: Last Vital Signs Temp 97.6 F 06/08/19 07:00 Pulse 80 06/08/19 09:15 Resp 16 06/08/19 09:15 BP 188/72 H 06/08/19 09:15 Pulse Ox 95 06/08/19 09:15 Weight - Most Recent: 177 lb 9.6 oz I&O - Last 24 Hours: Intake & Output 06/07/19 06/08/19 06/08/19 22:59 06:59 14:59 Intake Total 360 240 Output Total 0901 423 2527 Balance -1290 -950 -1260 Lab Results Last 24 Hours: Laboratory Results - last 24 hr 06/08/19 Range/Units 04:38 Sodium 142 (140-148) mmol/L Potassium 4.6 (3.6-5.2) mmol/L Chloride 106 (100-108) mmol/L Carbon Dioxide 33 H (21-32) mmol/L Anion Gap 7.6 (5.0-14.0) mmol/L BUN 45 H (7-18) mg/dL Creatinine 1.1 H (0.6-1.0) mg/dL Est Cr Clr Drug Dosing 36.24 mL/min Estimated GFR (MDRD) 49 L (>60) Glucose 168 H (74-106) mg/dL Calcium 8.0 L (8.5-10.1) mg/dL Med Orders - Current: Current Medications Hydrocodone Bitart/Acetaminophen ([place] 325-5 Mg) 1 tab PO Q6H PRN PRN Reason: Pain (moderate 4-6) Last Admin: 06/07/19 19:50 Dose: 1 tab Albuterol (Proventil Neb Soln) 2.5 mg NEB Q4H PRN PRN Reason: Shortness Of Breath/wheezing Last Admin: 06/07/19 15:59 Dose: 2.5 mg Albuterol/Ipratropium (Duoneb 3.0-0.5 Mg/3 Ml) 3 ml NEB QID PRN PRN Reason: Shortness Of Breath/wheezing Last Admin: 06/07/19 12:37 Dose: 3 ml Alendronate Sodium (Fosamax) 70 mg PO Th@0700 [facility] Artificial Tears (Genteal Mild To Moderate Ophth Soln) 0 ml EYEBOTH Q2H PRN PRN Reason: DRY EYES Bumetanide (Bumex) 2 mg IVPUSH Q12H [facility] Last Admin: 06/08/19 08:06 Dose: Not Given Carvedilol (Coreg) 3.125 mg PO BID [facility] Last Admin: 06/08/19 08:06 Dose: Not Given Cyclobenzaprine HCl (Flexeril) 5 mg PO TID [facility] Last Admin: 06/08/19 09:09 Dose: 5 mg Diclofenac Sodium (Voltaren 1% Gel) 0 gm TOP QID [facility] Last Admin: 06/08/19 09:10 Dose: Not Given Enoxaparin Sodium (Lovenox) 40 mg SUBCUT Q24H [facility] Last Admin: 06/07/19 15:56 Dose: 40 mg Gabapentin (Neurontin) 300 mg PO TID [facility] Last Admin: 06/08/19 09:09 Dose: 300 mg Hydroxychloroquine Sulfate (Plaquenil) 200 mg PO DAILY [facility] Last Admin: 06/08/19 09:10 Dose: 200 mg Losartan Potassium (Cozaar) 50 mg PO DAILY [facility] Last Admin: 06/08/19 08:06 Dose: Not Given Magnesium Oxide (Magnesium Oxide) 400 mg PO TID [facility] Last Admin: 06/08/19 09:09 Dose: 400 mg Methylprednisolone Sodium Succinate (Solu-Medrol) 40 mg IVPUSH Q8H [facility] Last Admin: 06/08/19 06:50 Dose: 40 mg Ondansetron HCl (Zofran) 4 mg IV Q4H PRN PRN Reason: Nausea/Vomiting Pantoprazole Sodium (Protonix) 40 mg PO DAILY@0730 [facility] Last Admin: 06/08/19 07:24 Dose: 40 mg Polyethylene Glycol (Miralax) 17 gm PO DAILY PRN PRN Reason: Constipation Pramipexole Dihydrochloride (Mirapex) 0.25 mg PO BEDTIME [facility] Last Admin: 06/07/19 19:59 Dose: 0.25 mg Sodium Chloride (Saline Flush) 10 ml FLUSH ASDIRECTED PRN PRN Reason: Keep Vein Open Spironolactone (Aldactone) 25 mg PO DAILY [facility] Last Admin: 06/08/19 08:06 Dose: Not Given Discontinued Medications Bumetanide (Bumex) 2 mg IVPUSH ONETIME ONE Stop: 06/06/19 10:58 Last Admin: 06/06/19 11:18 Dose: 2 mg Bumetanide (Bumex) 4 mg IVPUSH ONETIME ONE Stop: 06/06/19 19:01 Last Admin: 06/06/19 19:18 Dose: 4 mg Nitroglycerin (Nitrostat) 0.4 mg SL NOW STA Stop: 06/06/19 10:58 Last Admin: 06/06/19 11:37 Dose: 0.4 mg Sodium Chloride (Saline Flush) 10 ml FLUSH ASDIRECTED PRN PRN Reason: Keep Vein Open Sodium Chloride (Saline Flush) 10 ml FLUSH ASDIRECTED PRN PRN Reason: Keep Vein Open Last Admin: 06/06/19 11:18 Dose: 10 ml - Exam Quality Assessment: Supplemental Oxygen, DVT Prophylaxis General: Alert, Oriented, Cooperative, Mild Distress Lungs: Normal Respiratory Effort, Decreased Breath Sounds, Rhonchi, Wheezing. No: Rales, Rub Cardiovascular: Regular Rate, Regular Rhythm, No Murmurs GI/Abdominal Exam: Soft, Non-Tender, No Organomegaly, No Distention Extremities: Non-Tender, Pedal Edema Sepsis Event Note - Evaluation Sepsis Screening Result: No Definite Risk - Focused Exam Vital Signs: Vital Signs Temp Pulse Pulse Resp BP BP Pulse Ox 06/08/19 09:15 80 16 188/72 H 95 06/08/19 07:58 92 L 06/08/19 07:26 200/92 H 06/08/19 07:25 80 200/92 H 06/08/19 07:00 97.6 F 56 L 16 200/92 H 95 06/08/19 02:19 180/90 H 06/08/19 02:13 98.4 F 60 16 214/78 H 92 L 06/08/19 01:25 93 L Date Exam was Performed: 06/08/19 Time Exam was Performed: 11:30 - Problem List Review Problem List Initiated/Reviewed/Updated: Yes - My Orders Last 24 Hours: My Active Orders 06/07/19 21:00 Pramipexole [Mirapex] 0.25 mg PO BEDTIME 06/13/19 07:00 Alendronate [Fosamax] 70 mg PO Th@0700 - Plan Plan:: ASSESSMENT AND PLAN DIASTOLIC CONGESTIVE HEART FAILURE-good diuresis thus far, with improved shortness of breath and edema. Echocardiogram obtained today, results pending -2 g sodium diet -Bumex 2 mg IV every 12 hours COPD EXACERBATION SECONDARY TO RECENT VIRAL INFECTION-expiratory wheezes with loose productive cough -Nebulizer therapy as needed -Supplemental oxygen as needed -Solu-Medrol 40 mg IV every 8 hours HYPOXIA-likely secondary to current exacerbations of CHF and COPD -Management as above RECENT HISTORY OF SEVERE ANEMIA-essentially resolved MAINTENANCE ISSUES -DVT prophylaxis; Lovenox 40 mg subcu daily -GI prophylaxis; continue outpatient PPI therapy -Villeda catheter; not indicated -Nutrition; 2 g sodium diet -Nicotine dependence; not required CODE STATUS-FULL CODE ADMISSION STATUS-patient will be admitted to inpatient status, expect at least a 2 night hospital stay for evaluation and management of problems as outlined above. At the time of this admission I do not reasonably expected evaluation and management of this problem will require more than a 96 hour hospital stay. DISPOSITION-anticipate discharge to home after the hospital stay. PRIMARY CARE PROVIDER-Dr. Es Stewart
--- NOTE | 2019-06-08 11:57 | PCM.DCSUM1 ---
Discharge Summary - Hospital Course Brief History: Ms. Obrien is a 74-year-old woman who was admitted through the emergency department with increased peripheral edema and shortness of breath secondary to diastolic congestive heart failure exacerbation as well as COPD exacerbation. - Discharge Data Discharge Date: 06/08/19 Discharge Disposition: Home, Self-Care 01 Condition: Fair - Referral to Home Health Primary Care Physician: Es Stewart DO - Discharge Diagnosis/Problem(s) (1) Diastolic CHF, acute on chronic SNOMED Code(s): 698597169, 105959085 ICD Code: I50.33 - ACUTE ON CHRONIC DIASTOLIC (CONGESTIVE) HEART FAILURE Status: Acute Current Visit: Yes (2) COPD exacerbation SNOMED Code(s): 839456592 ICD Code: J44.1 - CHRONIC OBSTRUCTIVE PULMONARY DISEASE W (ACUTE) EXACERBATION Status: Acute Current Visit: Yes (3) Acute on chronic respiratory failure with hypoxia SNOMED Code(s): 58591436, 189808513 ICD Code: J96.21 - ACUTE AND CHRONIC RESPIRATORY FAILURE WITH HYPOXIA Status: Acute Current Visit: Yes (4) Diabetes mellitus, type 2 SNOMED Code(s): 11886557 ICD Code: E11.9 - TYPE 2 DIABETES MELLITUS WITHOUT COMPLICATIONS Status: Chronic Priority: Low Current Visit: No Qualifiers: Diabetes mellitus complication status: without complication - Patient Summary/Data Hospital Course: Ms. Obrien is a 74-year-old woman who was admitted through the emergency department with increased peripheral edema and pulmonary edema, secondary to diastolic congestive heart failure COPD exacerbation. She has noted slow increase in peripheral edema over the past 6 weeks, now over the past week has developed progressive shortness of breath. Chest x-ray shows evidence of CHF and she has marked edema on examination. She also recently had upper respiratory tract infection with exacerbation of her COPD, persistent loose cough. She denies any symptoms of chest pain or pressure no recent fevers chills or sweats. She was given 2 mg of Bumex IV in the emergency department and received 4 mg again later that day. She was felt to still have some component of COPD exacerbation and was placed on Solu-Medrol IV on admission. She also received supplemental oxygen and nebulizer therapy through hospitalization. On the day after admission she was continued on IV Bumex 2 mg every 12 hours. She had excellent diuresis during hospitalization with improvement in her shortness of breath almost to baseline and resolution of her peripheral edema. The importance of following a 2 g sodium diet was reinforced with the patient. She will be discharged home on 2 mg of Bumex p.o. twice daily. Metolazone will be held at the time of discharge, reassess at the time of follow-up appointment. She will be given 3 additional days of oral prednisone 40 mg daily. She has home oxygen and will continue use of oxygen 2 L /min via nasal cannula. Activity will be as tolerated and she will resume 2 g sodium diabetic diet. Follow-up appointment will be scheduled with her primary care provider within 1 week, BMP should be obtained at the time of follow-up appointment. - Patient Instructions Diet: Low Sodium, Diabetic Diet Activity: As Tolerated Other/Special Instructions: Please schedule follow-up appointment with primary care provider within 1 week. BMP should be obtained at the time of follow-up appointment. - Discharge Plan *PRESCRIPTION DRUG MONITORING PROGRAM REVIEWED*: Not Applicable *COPY OF PRESCRIPTION DRUG MONITORING REPORT IN PATIENT KELLY: Not Applicable Prescriptions/Med Rec: Bumetanide [Bumex] 2 mg PO BID #60 tab predniSONE [Prednisone] 40 mg PO DAILY #6 tablet Home Medications: Home Meds Hydroxychloroquine Sulfate 200 mg PO DAILY 05/09/13 [History] cycloSPORINE [Restasis] 1 drop EYEBOTH BID 05/09/13 [History] Albuterol [Proventil Neb Soln] 3 ml INH Q6H PRN 09/22/15 [History] Albuterol [Ventolin HFA] 2 puff INH Q6H PRN 09/22/15 [History] Magnesium Oxide 400 mg PO TID 05/17/16 [History] Diclofenac Sodium [Voltaren] 4 gm TOP QID 09/26/18 [History] Gabapentin [Neurontin] 300 - 600 mg PO TID 09/26/18 [History] Triamcinolone Acetonide [Kenalog 0.1% Crm] 1 applic TOP TID PRN 09/26/18 [ History] Ferrous Sulfate 325 mg PO TIDAC 12/24/18 [History] rOPINIRole [Requip] 1.5 tab PO BID 12/24/18 [History] Spironolactone [Aldactone] 25 mg PO DAILY 02/13/19 [History] Calcium Carbonate/Vitamin D3 [Caltrate 600+D 1500 MG-400 Units] 1 tab PO BID # 60 tablet 02/16/19 [Rx] Losartan [Cozaar] 50 mg PO DAILY #30 tablet 03/30/19 [Rx] Acetaminophen/HYDROcodone [[place] 325-5 MG] 1 tab PO Q6H PRN 06/06/19 [History] Alendronate Sodium [Fosamax] 70 mg PO Q7D 06/06/19 [History] Carvedilol [Coreg] 3.125 mg PO BID 06/06/19 [History] Cholecalciferol (Vitamin D3) [Vitamin D3] 1,000 unit PO BID 06/06/19 [History] Cyclobenzaprine [Flexeril] 5 mg PO TID 06/06/19 [History] Fluticasone Propionate [Flonase] 2 spray IH DAILY 06/06/19 [History] Pantoprazole [ProTONIX] 40 mg PO DAILY 06/06/19 [History] Bumetanide [Bumex] 2 mg PO BID #60 tab 06/08/19 [Rx] predniSONE [Prednisone] 40 mg PO DAILY #6 tablet 06/08/19 [Rx] Referrals: Es Stewart DO [Primary Care Provider] - 06/13/19 11:00 am - Discharge Summary/Plan Comment DC Time >30 min.: No - Patient Data Vitals - Most Recent: Last Vital Signs Temp 97.6 F 06/08/19 07:00 Pulse 80 06/08/19 09:15 Resp 16 06/08/19 09:15 BP 188/72 H 06/08/19 09:15 Pulse Ox 95 06/08/19 09:15 Weight - Most Recent: 177 lb 9.6 oz I&O - Last 24 hours: Intake & Output 06/07/19 06/08/19 06/08/19 22:59 06:59 14:59 Intake Total 360 240 Output Total 7851 794 3084 Balance -1290 -950 -1260 Lab Results - Last 24 hrs: Laboratory Results - last 24 hr 06/08/19 Range/Units 04:38 Sodium 142 (140-148) mmol/L Potassium 4.6 (3.6-5.2) mmol/L Chloride 106 (100-108) mmol/L Carbon Dioxide 33 H (21-32) mmol/L Anion Gap 7.6 (5.0-14.0) mmol/L BUN 45 H (7-18) mg/dL Creatinine 1.1 H (0.6-1.0) mg/dL Est Cr Clr Drug Dosing 36.24 mL/min Estimated GFR (MDRD) 49 L (>60) Glucose 168 H (74-106) mg/dL Calcium 8.0 L (8.5-10.1) mg/dL Med Orders - Current: Current Medications Hydrocodone Bitart/Acetaminophen ([place] 325-5 Mg) 1 tab PO Q6H PRN PRN Reason: Pain (moderate 4-6) Last Admin: 06/07/19 19:50 Dose: 1 tab Albuterol (Proventil Neb Soln) 2.5 mg NEB Q4H PRN PRN Reason: Shortness Of Breath/wheezing Last Admin: 06/07/19 15:59 Dose: 2.5 mg Albuterol/Ipratropium (Duoneb 3.0-0.5 Mg/3 Ml) 3 ml NEB QID PRN PRN Reason: Shortness Of Breath/wheezing Last Admin: 06/07/19 12:37 Dose: 3 ml Alendronate Sodium (Fosamax) 70 mg PO Th@0700 [facility] Artificial Tears (Genteal Mild To Moderate Ophth Soln) 0 ml EYEBOTH Q2H PRN PRN Reason: DRY EYES Bumetanide (Bumex) 2 mg IVPUSH Q12H [facility] Last Admin: 06/08/19 08:06 Dose: Not Given Carvedilol (Coreg) 3.125 mg PO BID [facility] Last Admin: 06/08/19 08:06 Dose: Not Given Cyclobenzaprine HCl (Flexeril) 5 mg PO TID [facility] Last Admin: 06/08/19 09:09 Dose: 5 mg Diclofenac Sodium (Voltaren 1% Gel) 0 gm TOP QID [facility] Last Admin: 06/08/19 09:10 Dose: Not Given Enoxaparin Sodium (Lovenox) 40 mg SUBCUT Q24H [facility] Last Admin: 06/07/19 15:56 Dose: 40 mg Gabapentin (Neurontin) 300 mg PO TID [facility] Last Admin: 06/08/19 09:09 Dose: 300 mg Hydroxychloroquine Sulfate (Plaquenil) 200 mg PO DAILY [facility] Last Admin: 06/08/19 09:10 Dose: 200 mg Losartan Potassium (Cozaar) 50 mg PO DAILY [facility] Last Admin: 06/08/19 08:06 Dose: Not Given Magnesium Oxide (Magnesium Oxide) 400 mg PO TID [facility] Last Admin: 06/08/19 09:09 Dose: 400 mg Methylprednisolone Sodium Succinate (Solu-Medrol) 40 mg IVPUSH Q8H [facility] Last Admin: 06/08/19 06:50 Dose: 40 mg Ondansetron HCl (Zofran) 4 mg IV Q4H PRN PRN Reason: Nausea/Vomiting Pantoprazole Sodium (Protonix) 40 mg PO DAILY@0730 [facility] Last Admin: 06/08/19 07:24 Dose: 40 mg Polyethylene Glycol (Miralax) 17 gm PO DAILY PRN PRN Reason: Constipation Pramipexole Dihydrochloride (Mirapex) 0.25 mg PO BEDTIME [facility] Last Admin: 06/07/19 19:59 Dose: 0.25 mg Sodium Chloride (Saline Flush) 10 ml FLUSH ASDIRECTED PRN PRN Reason: Keep Vein Open Spironolactone (Aldactone) 25 mg PO DAILY [facility] Last Admin: 06/08/19 08:06 Dose: Not Given Discontinued Medications Bumetanide (Bumex) 2 mg IVPUSH ONETIME ONE Stop: 06/06/19 10:58 Last Admin: 06/06/19 11:18 Dose: 2 mg Bumetanide (Bumex) 4 mg IVPUSH ONETIME ONE Stop: 06/06/19 19:01 Last Admin: 06/06/19 19:18 Dose: 4 mg Nitroglycerin (Nitrostat) 0.4 mg SL NOW [facility] Stop: 06/06/19 10:58 Last Admin: 06/06/19 11:37 Dose: 0.4 mg Sodium Chloride (Saline Flush) 10 ml FLUSH ASDIRECTED PRN PRN Reason: Keep Vein Open Sodium Chloride (Saline Flush) 10 ml FLUSH ASDIRECTED PRN PRN Reason: Keep Vein Open Last Admin: 06/06/19 11:18 Dose: 10 ml - Exam Quality Assessment: Reports: Supplemental Oxygen, DVT Prophylaxis General: Reports: Alert, Oriented, Cooperative, No Acute Distress Lungs: Reports: Decreased Breath Sounds. Denies: Rales, Rhonchi, Rub, Wheezing Cardiovascular: Reports: Regular Rate, Regular Rhythm, Murmurs GI/Abdominal Exam: Soft, Non-Tender, No Distention, No Mass Extremities: Non-Tender, No Pedal Edema
[2019-06-13] MEDS ORDERED: Alendronate 70 MG Tab PO SCH (07:00)
== END 2019-06-08 12:59 | disposition home or self-care (01) | DRG 291 ==
LOC: JP.ED 10:09 → JP.ICU 12:56 → JP.MS 14:02
PROVIDERS: ADMIT Hospitalist; ATTEND Hospitalist
DX: I11.0 Hypertensive heart disease with heart failure (principal); J96.21 Acute and chronic respiratory failure with hypoxia; J44.1 Chronic obstructive pulmonary disease with (acute) exacerbation; H54.7 Unspecified visual loss; H40.9 Unspecified glaucoma; H04.123 Dry eye syndrome of bilateral lacrimal glands; I50.33 Acute on chronic diastolic (congestive) heart failure; I45.10 Unspecified right bundle-branch block; J44.9 Chronic obstructive pulmonary disease, unspecified; I27.20 Pulmonary hypertension, unspecified; I25.10 Atherosclerotic heart disease of native coronary artery without angina pectoris; R32 Unspecified urinary incontinence; E78.00 Pure hypercholesterolemia, unspecified; G89.29 Other chronic pain; M54.9 Dorsalgia, unspecified; E11.21 Type 2 diabetes mellitus with diabetic nephropathy; M19.90 Unspecified osteoarthritis, unspecified site; M32.9 Systemic lupus erythematosus, unspecified; M81.0 Age-related osteoporosis without current pathological fracture; D64.9 Anemia, unspecified; Z99.81 Dependence on supplemental oxygen; E66.9 Obesity, unspecified; Z88.8 Allergy status to other drugs, medicaments and biological substances; Z79.899 Other long term (current) drug therapy; Z87.891 Personal history of nicotine dependence; Z68.32 Body mass index [BMI] 32.0-32.9, adult
CPT/HCPCS: 36415; 71046; 71046-26; 80048; 80053; 83735; 83880; 84484; 85025; 93306; 94640; 94762; 99284; A9270-GY; J1650; J2920; J3490; J7620-GY

== ENCOUNTER 2020-03-28 23:47 | Inpatient (IN) | payer MEDICARE ==
[2020-03-29] MEDS ORDERED: Albuterol 8 GM Inhaler INH ONE (00:28)
[2020-03-29] MEDS ORDERED: Sodium Chloride 0.9% 1,000 ML IV SCH (00:30)
[2020-03-29] MEDS ORDERED: Dexamethasone 4 MG/ML SDV IVPUSH ONE (00:31)
--- NOTE | 2020-03-29 00:35 | EDM.PDOC ---
ED HPI GENERAL MEDICAL PROBLEM - General Chief Complaint: Respiratory Problem Stated Complaint: [facility] Time Seen by Provider: 03/29/20 00:32 Source of Information: Reports: Patient History Limitations: Reports: No Limitations - History of Present Illness INITIAL COMMENTS - FREE TEXT/NARRATIVE: pt has been ill for about 5 days. She did test positive on Monday. She has gotten progressively more sob. She was quite labored tonight. She does have chf and copd and is on 2 liters of o2 at home. She was not able to maintain with the 2 liters tonight. Onset: Gradual Duration: Hour(s): Location: Reports: Chest, Generalized Associated Symptoms: Reports: Cough, Shortness of Breath, Weakness denies pain Pain Score (Numeric/FACES): 0 Bilateral Leg Pain Score (Numeric/FACES): 5 - Related Data Allergies Allergy/AdvReac Type Severity Reaction Status Date / Time hydrochlorothiazide Allergy Other Verified 03/29/20 02:13 [From Dyazide] loperamide [From Imodium A-D] Allergy Other Verified 03/29/20 02:13 oxybutynin Allergy Other Verified 03/29/20 02:13 [id number] Reductase Allergy Other Verified 03/29/20 02:13 Inhibitor triamterene [From Dyazide] Allergy Other Verified 03/29/20 02:13 budesonide [From Symbicort] AdvReac Nausea and Verified 03/29/20 02:13 Vomiting formoterol fumarate AdvReac Nausea and Verified 03/29/20 02:13 [From Symbicort] Vomiting pregabalin [From Lyrica] AdvReac Headache Verified 03/29/20 02:13 tizanidine AdvReac Nausea Verified 03/29/20 02:13 Home Meds: Home Meds Hydroxychloroquine Sulfate 200 mg PO DAILY 05/09/13 [History] cycloSPORINE [Restasis] 1 drop EYEBOTH BID 05/09/13 [History] Albuterol [Proventil Neb Soln] 3 ml INH Q6H PRN 09/22/15 [History] Albuterol [Ventolin HFA] 2 puff INH Q6H PRN 09/22/15 [History] Magnesium Oxide 400 mg PO TID 05/17/16 [History] Diclofenac Sodium [Voltaren] 4 gm TOP QID 09/26/18 [History] Gabapentin [Neurontin] 300 - 600 mg PO TID 09/26/18 [History] Triamcinolone Acetonide [Kenalog 0.1% Crm] 1 applic TOP TID PRN 09/26/18 [History] Ferrous Sulfate 325 mg PO TIDAC 12/24/18 [History] rOPINIRole [Requip] 1.5 tab PO BID 12/24/18 [History] Spironolactone [Aldactone] 25 mg PO DAILY 02/13/19 [History] Calcium Carbonate/Vitamin D3 [Caltrate 600+D 1500 MG-400 Units] 1 tab PO BID #60 tablet 02/16/19 [Rx] Losartan [Cozaar] 50 mg PO DAILY #30 tablet 03/30/19 [Rx] Acetaminophen/HYDROcodone [[place] 325-5 MG] 1 tab PO Q6H PRN 06/06/19 [History] Alendronate Sodium [Fosamax] 70 mg PO Q7D 06/06/19 [History] Cholecalciferol (Vitamin D3) [Vitamin D3] 1,000 unit PO BID 06/06/19 [History] Cyclobenzaprine [Flexeril] 5 mg PO TID 06/06/19 [History] Fluticasone Propionate [Flonase] 2 spray IH DAILY 06/06/19 [History] Pantoprazole [ProTONIX] 40 mg PO DAILY 06/06/19 [History] carvediloL [Coreg] 3.125 mg PO BID 06/06/19 [History] Bumetanide [Bumex] 2 mg PO BID #60 tab 06/08/19 [Rx] predniSONE [Prednisone] 40 mg PO DAILY #6 tablet 06/08/19 [Rx] Past Medical History HEENT History: Reports: Glaucoma, Impaired Vision Other HEENT History: Otitis externa of right ear, bilateral dry eyes Cardiovascular History: Reports: CAD, Heart Murmur, High Cholesterol, Hypertension, SOB on Exertion Other Cardiovascular History: RBBB,ventricular diastolic dysfunction Respiratory History: Reports: Asthma, COPD, Other (See Below) Other Respiratory History: pulmonary hypertension. Uses O2 at night. Gastrointestinal History: Reports: Chronic Diarrhea Genitourinary History: Reports: Diabetic Nephropathy, Urinary Incontinence [employer] History: Reports: Musculoskeletal History: Reports: Arthritis, Back Pain, Chronic, Fracture, Osteoporosis Other Musculoskeletal History: fx ankle Endocrine/Metabolic History: Reports: Diabetes, Type II, Obesity/BMI 30+, Osteoporosis Other Endocrine/Metabolic History: lupus Hematologic History: Reports: Anticoagulation Therapy Other Hematologic History: hx of is no longer on Immunologic History: Reports: SLE Other Immunologic History: lupus anticoagulant positive Dermatologic History: Reports: Cellulitis, Venous Stasis Dermatitis - Infectious Disease History Infectious Disease History: Reports: Chicken Pox - Past Surgical History Head Surgeries/Procedures: Reports: None HEENT Surgical History: Reports: None Cardiovascular Surgical History: Reports: None Other Cardiovascular Surgeries/Procedures: angiogram December 03 Respiratory Surgical History: Reports: None GI Surgical History: Reports: None Female Surgical History: Reports: Breast Biopsy Endocrine Surgical History: Reports: None Neurological Surgical History: Reports: None Musculoskeletal Surgical History: Reports: Other (See Below) Other Musculoskeletal Surgeries/Procedures:: left ankle repair Oncologic Surgical History: Reports: Biopsy of Breast Dermatological Surgical History: Reports: Skin Biopsy Social & Family History - Family History Family Medical History: No Pertinent Family History - Tobacco Use Tobacco Use Status *Q: Never Tobacco User - Caffeine Use Caffeine Use: Reports: Coffee Other Caffeine Use: 3 cups coffee daily, 1 can pop dailty - Recreational Drug Use Recreational Drug Use: No - Living Situation & Occupation Living situation: Reports: Single, Alone (lives alone in her home in [place], [place]., 2 children; son Palmer,who visits on weekends, Daughter two years ago of overdose. 3 grandchildren.) ED ROS GENERAL - Review of Systems Review Of Systems: See Below Constitutional: Reports: Chills, Weakness HEENT: Reports: No Symptoms Respiratory: Reports: Shortness of Breath, Wheezing, Cough, Sputum Cardiovascular: Reports: No Symptoms Endocrine: Reports: No Symptoms GI/Abdominal: Reports: No Symptoms : Reports: No Symptoms Musculoskeletal: Reports: No Symptoms Skin: Reports: No Symptoms Neurological: Reports: Dizziness, Weakness Psychiatric: Reports: Anxiety ED EXAM, GENERAL - Physical Exam Exam: See Below Free Text/Narrative:: pt is having alot of chest congestion and labored breathing. She has a history of chf and copd. She was covid positive on Monday and she has been sick for about 5 days. Exam Limited By: No Limitations General Appearance: Alert, Anxious Ears: Normal TMs Nose: Normal Inspection Throat/Mouth: Normal Inspection Head: Atraumatic Neck: Other (neck veins are prominent) Respiratory/Chest: Decreased Breath Sounds, Crackles, Rales, Rhonchi, Wheezing Cardiovascular: Regular Rate, Rhythm, Tachycardia Peripheral Pulses: 0: Posterior Tibial (R) GI/Abdominal: Soft, Non-Tender (Female) Exam: Deferred Rectal (Female) Exam: Deferred Back Exam: Normal Inspection Extremities: Other (pt has cellulitis of both legs ) Neurological: Alert, Oriented, Normal Cognition Psychiatric: Anxious Course - Vital Signs Last Recorded V/S: Last Vital Signs Temp 36.5 C 04/07/20 03:21 Pulse 65 04/07/20 03:21 Resp 20 04/07/20 03:21 BP 162/55 H 04/07/20 03:21 Pulse Ox 93 L 04/07/20 03:21 - Orders/Labs/Meds Orders: Medication Orders Acetaminophen (Tylenol) 650 mg PO Q4H PRN PRN Reason: Pain (Mild 1-3)/fever Hydrocodone Bitart/Acetaminophen ([place] 325-5 Mg) 1 tab PO Q4H PRN PRN Reason: Pain (moderate 4-6) Last Admin: 04/01/20 19:30 Dose: 1 tab Documented by: Admin: 04/01/20 13:32 Dose: 1 tab Documented by: Admin: 03/31/20 18:12 Dose: 1 tab Documented by: Admin: 03/31/20 08:22 Dose: 1 tab Documented by: BO Albuterol (Ventolin Hfa) 0 gm INH Q2H PRN PRN Reason: Dyspnea Albuterol/Ipratropium (Combivent Respimat) 0 gm INH QIDRT [facility] Last Admin: 04/06/20 21:59 Dose: 2 inhalation Documented by: Admin: 04/06/20 16:48 Dose: 2 inhalation Documented by: Admin: 04/06/20 10:27 Dose: 2 inhalation Documented by: Admin: 04/06/20 07:28 Dose: 2 inhalation Documented by: Admin: 04/05/20 21:22 Dose: 2 inhalation Documented by: Admin: 04/05/20 15:11 Dose: 2 inhalation Documented by: Admin: 04/05/20 10:08 Dose: 2 inhalation Documented by: Admin: 04/05/20 07:51 Dose: 2 inhalation Documented by: Admin: 04/04/20 21:30 Dose: 2 inhalation Documented by: Admin: 04/04/20 14:07 Dose: 2 inhalation Documented by: Admin: 04/04/20 11:49 Dose: 2 inhalation Documented by: Admin: 04/04/20 07:55 Dose: 2 inhalation Documented by: Admin: 04/03/20 21:23 Dose: 2 inhalation Documented by: Admin: 04/03/20 14:45 Dose: Not Given Documented by: Admin: 04/03/20 14:17 Dose: 2 inhalation Documented by: Admin: 04/03/20 07:49 Dose: 2 inhalation Documented by: Admin: 04/02/20 21:26 Dose: 2 inhalation Documented by: Admin: 04/02/20 14:51 Dose: 2 inhalation Documented by: Admin: 04/02/20 11:34 Dose: 2 inhalation Documented by: Admin: 04/02/20 07:31 Dose: 2 inhalation Documented by: Admin: 04/01/20 22:04 Dose: 2 inhalation Documented by: Admin: 04/01/20 16:24 Dose: 2 inhalation Documented by: Admin: 04/01/20 10:07 Dose: 2 inhalation Documented by: Admin: 04/01/20 07:29 Dose: 2 inhalation Documented by: Admin: 03/31/20 20:33 Dose: 2 inhalation Documented by: Admin: 03/31/20 17:08 Dose: 2 inhalation Documented by: Admin: 03/31/20 10:50 Dose: 2 inhalation Documented by: Admin: 03/31/20 07:32 Dose: 2 inhalation Documented by: Admin: 03/30/20 20:07 Dose: 2 inhalation Documented by: Admin: 03/30/20 15:26 Dose: 2 inhalation Documented by: Admin: 03/30/20 11:49 Dose: 2 inhalation Documented by: Admin: 03/30/20 09:07 Dose: 2 inhalation Documented by: Admin: 03/29/20 20:36 Dose: 2 inhalation Documented by: Admin: 03/29/20 14:05 Dose: 2 inhalation Documented by: Admin: 03/29/20 11:22 Dose: 2 inhalation Documented by: JERRY Benzocaine/Menthol (Cepacol Sore Throat) 1 lozenge MUCMEM 5XDAY PRN PRN Reason: Sore Throat Last Admin: 04/03/20 17:53 Dose: 1 janae Documented by: FREDDY Benzonatate (Tessalon Perles) 100 mg PO TID PRN PRN Reason: Cough Carvedilol (Coreg) 6.25 mg PO BIDMEALS [facility] Last Admin: 04/06/20 16:48 Dose: 6.25 mg Documented by: BO Dexamethasone (Dexamethasone) 4 mg PO BID [facility] Last Admin: 04/06/20 21:59 Dose: 4 mg Documented by: Admin: 04/06/20 08:00 Dose: 4 mg Documented by: Admin: 04/05/20 21:22 Dose: 4 mg Documented by: Admin: 04/05/20 10:08 Dose: 4 mg Documented by: Admin: 04/04/20 21:32 Dose: 4 mg Documented by: GIOVANNI Dextrose (Glutose 15) 15 gm PO ONETIME PRN PRN Reason: Hypoglycemia Dextrose/Water (Dextrose 50% In Water) 50 ml IVPUSH ASDIRECTED PRN PRN Reason: Hypoglycemia Diclofenac Sodium (Voltaren 1% Gel) 0 gm TOP QID [facility] Last Admin: 04/07/20 05:33 Dose: Not Given Documented by: Admin: 04/06/20 21:58 Dose: 1 applic Documented by: Admin: 04/06/20 16:45 Dose: Not Given Documented by: Admin: 04/06/20 10:27 Dose: 1 applic Documented by: Admin: 04/06/20 05:48 Dose: Not Given Documented by: Admin: 04/05/20 21:22 Dose: Not Given Documented by: Admin: 04/05/20 16:13 Dose: Not Given Documented by: Admin: 04/05/20 10:09 Dose: 1 applic Documented by: Admin: 04/05/20 06:23 Dose: Not Given Documented by: Admin: 04/04/20 21:34 Dose: 1 applic Documented by: Admin: 04/04/20 17:29 Dose: Not Given Documented by: Admin: 04/04/20 11:48 Dose: 1 applic Documented by: Admin: 04/04/20 06:05 Dose: Not Given Documented by: Admin: 04/03/20 21:27 Dose: 1 applic Documented by: Admin: 04/03/20 16:00 Dose: 1 applic Documented by: Admin: 04/03/20 11:54 Dose: 1 applic Documented by: Admin: 04/03/20 05:20 Dose: 1 applic Documented by: Admin: 04/02/20 21:29 Dose: 1 applic Documented by: Admin: 04/02/20 15:07 Dose: 1 applic Documented by: Admin: 04/02/20 10:04 Dose: 1 applic Documented by: Admin: 04/02/20 05:21 Dose: 1 applic Documented by: Admin: 04/01/20 22:05 Dose: 1 applic Documented by: Admin: 04/01/20 16:25 Dose: 1 applic Documented by: Admin: 04/01/20 10:07 Dose: 1 applic Documented by: Admin: 04/01/20 05:09 Dose: Not Given Documented by: Admin: 03/31/20 21:25 Dose: 1 applic Documented by: Admin: 03/31/20 17:09 Dose: Not Given Documented by: Admin: 03/31/20 10:49 Dose: 100 gm Documented by: Admin: 03/31/20 05:40 Dose: 1 gm Documented by: Admin: 03/30/20 21:04 Dose: 1 gm Documented by: Admin: 03/30/20 16:08 Dose: 1 gm Documented by: Admin: 03/30/20 11:49 Dose: 100 gm Documented by: TIRSO Diphenhydramine HCl (Benadryl) 25 mg PO Q6H PRN PRN Reason: Itching Last Admin: 03/29/20 04:12 Dose: 25 mg Documented by: LAURIE Enoxaparin Sodium (Lovenox) 80 mg SUBCUT Q24H [facility] Admin: 04/07/20 03:21 Dose: 80 mg Documented by: Admin: 04/06/20 03:54 Dose: 80 mg Documented by: Admin: 04/05/20 04:53 Dose: 80 mg Documented by: Admin: 04/04/20 03:55 Dose: 80 mg Documented by: Admin: 04/03/20 05:19 Dose: 80 mg Documented by: Admin: 04/02/20 03:58 Dose: 80 mg Documented by: Admin: 04/01/20 03:34 Dose: 80 mg Documented by: Admin: 03/31/20 04:15 Dose: 80 mg Documented by: Admin: 03/30/20 03:45 Dose: 80 mg Documented by: Admin: 03/29/20 04:57 Dose: 80 mg Documented by: LAURIE Fluticasone Propionate (Flonase) 0 gm YASMINE DAILY [facility] Admin: 04/06/20 08:01 Dose: 2 spray Documented by: Admin: 04/05/20 08:34 Dose: 2 spray Documented by: Admin: 04/04/20 08:00 Dose: 2 spray Documented by: Admin: 04/03/20 08:09 Dose: 2 spray Documented by: Admin: 04/02/20 10:01 Dose: 2 spray Documented by: Admin: 04/01/20 08:17 Dose: 2 spray Documented by: Admin: 03/31/20 08:25 Dose: 2 spray Documented by: Admin: 03/30/20 09:09 Dose: 2 spray Documented by: Admin: 03/29/20 10:01 Dose: Not Given Documented by: JERRY Gabapentin (Neurontin) 300 mg PO TID [facility] Admin: 04/06/20 21:58 Dose: 300 mg Documented by: Admin: 04/06/20 13:12 Dose: 300 mg Documented by: Admin: 04/06/20 08:01 Dose: 300 mg Documented by: Admin: 04/05/20 21:22 Dose: 300 mg Documented by: Admin: 04/05/20 15:10 Dose: 300 mg Documented by: Admin: 04/05/20 08:33 Dose: 300 mg Documented by: Admin: 04/04/20 21:33 Dose: 300 mg Documented by: Admin: 04/04/20 14:07 Dose: 300 mg Documented by: Admin: 04/04/20 08:00 Dose: 300 mg Documented by: Admin: 04/03/20 21:25 Dose: 300 mg Documented by: Admin: 04/03/20 14:16 Dose: 300 mg Documented by: Admin: 04/03/20 08:10 Dose: 300 mg Documented by: Admin: 04/02/20 21:31 Dose: 300 mg Documented by: Admin: 04/02/20 14:51 Dose: 300 mg Documented by: Admin: 04/02/20 08:28 Dose: 300 mg Documented by: Admin: 04/01/20 22:03 Dose: 300 mg Documented by: Admin: 04/01/20 13:32 Dose: 300 mg Documented by: Admin: 04/01/20 08:15 Dose: 300 mg Documented by: Admin: 03/31/20 20:34 Dose: 300 mg Documented by: Admin: 03/31/20 13:43 Dose: 300 mg Documented by: Admin: 03/31/20 08:25 Dose: 300 mg Documented by: Admin: 03/30/20 20:15 Dose: 300 mg Documented by: Admin: 03/30/20 15:26 Dose: 300 mg Documented by: Admin: 03/30/20 09:11 Dose: 300 mg Documented by: Admin: 03/29/20 20:33 Dose: 300 mg Documented by: Admin: 03/29/20 14:04 Dose: 300 mg Documented by: Admin: 03/29/20 09:43 Dose: 300 mg Documented by: JERRY Glucagon (Glucagen) 1 mg IM ASDIRECTED PRN PRN Reason: Hypoglycemia Guaifenesin (Mucinex) 600 mg PO BID JERRI Last Admin: 04/06/20 21:58 Dose: 600 mg Documented by: Admin: 04/06/20 08:00 Dose: 600 mg Documented by: Admin: 04/05/20 21:22 Dose: 600 mg Documented by: Admin: 04/05/20 08:33 Dose: 600 mg Documented by: Admin: 04/04/20 21:33 Dose: 600 mg Documented by: Admin: 04/04/20 08:00 Dose: 600 mg Documented by: Admin: 04/03/20 21:24 Dose: 600 mg Documented by: Admin: 04/03/20 08:11 Dose: 600 mg Documented by: Admin: 04/02/20 21:31 Dose: 600 mg Documented by: Admin: 04/02/20 10:03 Dose: 600 mg Documented by: Admin: 04/01/20 22:03 Dose: 600 mg Documented by: Admin: 04/01/20 08:15 Dose: 600 mg Documented by: Admin: 03/31/20 20:34 Dose: 600 mg Documented by: Admin: 03/31/20 10:48 Dose: 600 mg Documented by: Admin: 03/30/20 20:10 Dose: 600 mg Documented by: Admin: 03/30/20 15:28 Dose: 600 mg Documented by: TIRSO Guaifenesin/Dextromethorphan (Robitussin Dm) 10 ml PO Q6H PRN PRN Reason: Cough Insulin Human Lispro (Humalog) 0 unit SUBCUT QIDACANDBED [facility]; Protocol Last Admin: 04/06/20 22:01 Dose: 8 units Documented by: KRISTEL Cosigned by: ROBERT Admin: 04/06/20 16:47 Dose: 4 units Documented by: BO Cosigned by: NICOLE Admin: 04/06/20 13:09 Dose: 6 units Documented by: BO Cosigned by: CARYN Admin: 04/06/20 07:57 Dose: 2 units Documented by: BO Cosigned by: CARYN Admin: 04/05/20 21:21 Dose: 6 units Documented by: BRYAN Cosigned by: WALESKA Admin: 04/05/20 17:04 Dose: Not Given Documented by: Admin: 04/05/20 12:21 Dose: 8 units Documented by: FREDDY Cosigned by: WAN Admin: 04/05/20 08:37 Dose: 4 units Documented by: FREDDY Cosigned by: LEONARD Admin: 04/04/20 21:25 Dose: 6 units Documented by: GIOVANNI Cosigned by: TIMUR Admin: 04/04/20 17:25 Dose: 6 units Documented by: LEONARD Cosigned by: WAN Admin: 04/04/20 11:54 Dose: 8 units Documented by: FREDDY Cosigned by: ALETHEA Admin: 04/04/20 08:03 Dose: 4 units Documented by: FREDDY Cosigned by: ALETHEA Admin: 04/03/20 21:22 Dose: 15 units Documented by: BRYAN Cosigned by: WALESKA Losartan Potassium (Cozaar) 50 mg PO DAILY [facility] Admin: 04/06/20 08:00 Dose: 50 mg Documented by: Admin: 04/05/20 08:35 Dose: 50 mg Documented by: Admin: 04/04/20 08:01 Dose: 50 mg Documented by: Admin: 04/03/20 08:10 Dose: 50 mg Documented by: Admin: 04/02/20 08:28 Dose: 50 mg Documented by: Admin: 04/01/20 08:15 Dose: 50 mg Documented by: Admin: 03/31/20 08:19 Dose: 50 mg Documented by: Admin: 03/30/20 09:09 Dose: 50 mg Documented by: Admin: 03/29/20 09:41 Dose: 50 mg Documented by: JERRY Magnesium Oxide (Magnesium Oxide) 400 mg PO TID [facility] Last Admin: 04/06/20 21:58 Dose: 400 mg Documented by: Admin: 04/06/20 13:11 Dose: 400 mg Documented by: Admin: 04/06/20 08:00 Dose: 400 mg Documented by: Admin: 04/05/20 21:22 Dose: 400 mg Documented by: Admin: 04/05/20 15:10 Dose: 400 mg Documented by: Admin: 04/05/20 08:33 Dose: 400 mg Documented by: Admin: 04/04/20 21:32 Dose: 400 mg Documented by: Admin: 04/04/20 14:07 Dose: 400 mg Documented by: Admin: 04/04/20 08:00 Dose: 400 mg Documented by: Admin: 04/03/20 21:24 Dose: 400 mg Documented by: Admin: 04/03/20 14:16 Dose: 400 mg Documented by: Admin: 04/03/20 08:10 Dose: 400 mg Documented by: Admin: 04/02/20 21:31 Dose: 400 mg Documented by: Admin: 04/02/20 14:51 Dose: 400 mg Documented by: Admin: 04/02/20 08:20 Dose: 400 mg Documented by: Admin: 04/01/20 22:03 Dose: 400 mg Documented by: Admin: 04/01/20 13:32 Dose: 400 mg Documented by: Admin: 04/01/20 08:15 Dose: 400 mg Documented by: Admin: 03/31/20 20:34 Dose: 400 mg Documented by: Admin: 03/31/20 13:43 Dose: 400 mg Documented by: Admin: 03/31/20 08:25 Dose: 400 mg Documented by: Admin: 03/30/20 20:10 Dose: 400 mg Documented by: Admin: 03/30/20 15:26 Dose: 400 mg Documented by: Admin: 03/30/20 09:10 Dose: 400 mg Documented by: Admin: 03/29/20 20:33 Dose: 400 mg Documented by: Admin: 03/29/20 14:04 Dose: 400 mg Documented by: Admin: 03/29/20 09:42 Dose: 400 mg Documented by: JERRY Mometasone Furoate (Asmanex Hfa 200mcg) 0 gm INH BIDRT [facility] Last Admin: 04/06/20 21:59 Dose: 2 inhalation Documented by: Admin: 04/06/20 07:28 Dose: 2 inhalation Documented by: Admin: 04/05/20 21:22 Dose: 2 inhalation Documented by: Admin: 04/05/20 07:51 Dose: 2 inhalation Documented by: Admin: 04/04/20 21:27 Dose: 2 inhalation Documented by: Admin: 04/04/20 07:55 Dose: 2 inhalation Documented by: Admin: 04/03/20 21:23 Dose: 2 inhalation Documented by: Admin: 04/03/20 07:49 Dose: 2 inhalation Documented by: Admin: 04/02/20 21:32 Dose: 2 inhalation Documented by: Admin: 04/02/20 07:31 Dose: 2 inhalation Documented by: Admin: 04/01/20 22:04 Dose: 2 inhalation Documented by: Admin: 04/01/20 07:28 Dose: 2 inhalation Documented by: Admin: 03/31/20 20:33 Dose: 2 inhalation Documented by: Admin: 03/31/20 07:32 Dose: 2 inhalation Documented by: Admin: 03/30/20 20:04 Dose: 2 inhalation Documented by: Admin: 03/30/20 09:06 Dose: 2 inhalation Documented by: Admin: 03/29/20 20:35 Dose: 2 inhalation Documented by: Admin: 03/29/20 09:43 Dose: 2 inhalation Documented by: JERRY Nystatin (Nystop) 0 gm TOP QID [facility] Last Admin: 04/07/20 05:33 Dose: Not Given Documented by: Admin: 04/06/20 22:00 Dose: 1 applic Documented by: Admin: 04/06/20 16:44 Dose: 1 applic Documented by: Admin: 04/06/20 10:28 Dose: 1 applic Documented by: Admin: 04/06/20 05:47 Dose: Not Given Documented by: Admin: 04/05/20 21:22 Dose: Not Given Documented by: Admin: 04/05/20 15:11 Dose: 1 applic Documented by: Admin: 04/05/20 10:08 Dose: 1 applic Documented by: Admin: 04/05/20 06:23 Dose: Not Given Documented by: Admin: 04/04/20 21:33 Dose: 1 applic Documented by: Admin: 04/04/20 17:28 Dose: Not Given Documented by: Admin: 04/04/20 11:48 Dose: 1 applic Documented by: Admin: 04/04/20 06:05 Dose: Not Given Documented by: Admin: 04/03/20 21:26 Dose: 1 applic Documented by: Admin: 04/03/20 16:00 Dose: 1 applic Documented by: Admin: 04/03/20 11:54 Dose: 1 applic Documented by: Admin: 04/03/20 05:20 Dose: 1 applic Documented by: Admin: 04/02/20 21:29 Dose: 1 applic Documented by: Admin: 04/02/20 15:08 Dose: 1 applic Documented by: Admin: 04/02/20 10:03 Dose: 1 applic Documented by: Admin: 04/02/20 05:21 Dose: 1 applic Documented by: Admin: 04/01/20 22:05 Dose: 1 applic Documented by: Admin: 04/01/20 16:25 Dose: 2 applic Documented by: Admin: 04/01/20 10:07 Dose: 1 applic Documented by: Admin: 04/01/20 05:04 Dose: 1 applic Documented by: Admin: 03/31/20 21:25 Dose: Not Given Documented by: Admin: 03/31/20 17:09 Dose: Not Given Documented by: Admin: 03/31/20 10:48 Dose: 1 applic Documented by: Admin: 03/31/20 05:40 Dose: 1 applic Documented by: Admin: 03/30/20 21:05 Dose: 1 applic Documented by: Admin: 03/30/20 16:08 Dose: 1 applic Documented by: Admin: 03/30/20 09:12 Dose: 1 applic Documented by: Admin: 03/30/20 05:53 Dose: 1 applic Documented by: Admin: 03/29/20 23:27 Dose: 1 applic Documented by: Admin: 03/29/20 16:44 Dose: 1 applic Documented by: Admin: 03/29/20 10:00 Dose: 1 applic Documented by: JERRY Ondansetron HCl (Zofran) 4 mg IV Q4H PRN PRN Reason: Nausea/Vomiting Pantoprazole Sodium (Protonix) 40 mg PO ACBREAKFAST [facility] Admin: 04/06/20 07:56 Dose: 40 mg Documented by: Admin: 04/05/20 08:32 Dose: 40 mg Documented by: Admin: 04/04/20 07:57 Dose: 40 mg Documented by: Admin: 04/03/20 08:11 Dose: 40 mg Documented by: Admin: 04/02/20 08:42 Dose: 40 mg Documented by: Admin: 04/01/20 08:17 Dose: 40 mg Documented by: Admin: 03/31/20 08:25 Dose: 40 mg Documented by: Admin: 03/30/20 09:09 Dose: 40 mg Documented by: Admin: 03/29/20 09:42 Dose: 40 mg Documented by: JERRY Polyethylene Glycol (Miralax) 17 gm PO DAILY PRN PRN Reason: Constipation Ropinirole HCl 0.5 mg/ (Ropinirole HCl 1 mg) 1.5 mg PO BID@0900,1800 [facility] Admin: 04/06/20 17:00 Dose: 1.5 mg Documented by: Admin: 04/06/20 08:01 Dose: 1.5 mg Documented by: Admin: 04/05/20 17:21 Dose: 1.5 mg Documented by: Admin: 04/05/20 08:33 Dose: 1.5 mg Documented by: Admin: 04/04/20 17:30 Dose: 1.5 mg Documented by: LEONARD Sodium Chloride (Saline Flush) 10 ml FLUSH ASDIRECTED PRN PRN Reason: Keep Vein Open Labs: Laboratory Tests 03/29/20 03/29/20 03/29/20 Range/Units 00:34 00:34 00:34 WBC 5.9 (4.5-11.0) K/uL RBC 4.27 (3.30-5.50) M/uL Hgb 11.5 L (12.0-15.0) g/dL Hct 37.9 (36.0-48.0) % MCV 89 (80-98) fL MCH 27 (27-31) pg MCHC 30 L (32-36) % Plt Count 156 (150-400) K/uL Neut % (Auto) 85 H (36-66) % Lymph % (Auto) 8 L (24-44) % [place] % (Auto) 7 H (2-6) % Eos % (Auto) 0 L (2-4) % Baso % (Auto) 0 (0-1) % D-Dimer, Quantitative 1613.37 H (0.0-500.0) ng/mL Sodium 139 L (140-148) mmol/L Potassium 4.6 (3.6-5.2) mmol/L Chloride 103 (100-108) mmol/L Carbon Dioxide 30 (21-32) mmol/L Anion Gap 10.6 (5.0-14.0) mmol/L BUN 100 H* D (7-18) mg/dL Creatinine 2.0 H D (0.6-1.0) mg/dL Est Cr Clr Drug Dosing 19.81 mL/min Estimated GFR (MDRD) 24 L (>60) Glucose 117 H (74-106) mg/dL Calcium 8.6 (8.5-10.1) mg/dL Total Bilirubin 0.7 D (0.2-1.0) mg/dL AST 54 H D (15-37) U/L ALT 22 (12-78) U/L Alkaline Phosphatase 78 (46-116) U/L C-Reactive Protein (0.0-0.3) mg/dL NT-Pro-B Natriuret Pep (5-125) pg/mL Total Protein 7.7 (6.4-8.2) g/dL Albumin 2.2 L (3.4-5.0) g/dL Globulin 5.5 H (2.3-3.5) g/dL Albumin/Globulin Ratio 0.4 L (1.2-2.2) Urine Color (YELLOW) Urine Appearance (CLEAR) Urine pH (5.0-8.0) Ur Specific [place] (1.008-1.030) Urine Protein (NEGATIVE) mg/dL Urine Glucose (UA) (NEGATIVE) mg/dL Urine Ketones (NEGATIVE) mg/dL Urine Occult Blood (NEGATIVE) Urine Nitrite (NEGATIVE) Urine Bilirubin (NEGATIVE) Urine Urobilinogen (0.2-1.0) EU/dL Ur Leukocyte Esterase (NEGATIVE) Urine RBC (0-5) Urine WBC (0-5) Ur Epithelial Cells Amorphous Sediment Urine Bacteria Urine Mucus 03/29/20 03/29/20 03/29/20 Range/Units 00:34 01:13 01:16 WBC (4.5-11.0) K/uL RBC (3.30-5.50) M/uL Hgb (12.0-15.0) g/dL Hct (36.0-48.0) % MCV (80-98) fL MCH (27-31) pg MCHC (32-36) % Plt Count (150-400) K/uL Neut % (Auto) (36-66) % Lymph % (Auto) (24-44) % [place] % (Auto) (2-6) % Eos % (Auto) (2-4) % Baso % (Auto) (0-1) % D-Dimer, Quantitative (0.0-500.0) ng/mL Sodium (140-148) mmol/L Potassium (3.6-5.2) mmol/L Chloride (100-108) mmol/L Carbon Dioxide (21-32) mmol/L Anion Gap (5.0-14.0) mmol/L BUN (7-18) mg/dL Creatinine (0.6-1.0) mg/dL Est Cr Clr Drug Dosing mL/min Estimated GFR (MDRD) (>60) Glucose (74-106) mg/dL Calcium (8.5-10.1) mg/dL Total Bilirubin (0.2-1.0) mg/dL AST (15-37) U/L ALT (12-78) U/L Alkaline Phosphatase (46-116) U/L C-Reactive Protein 11.03 H (0.0-0.3) mg/dL NT-Pro-B Natriuret Pep 32911 H (5-125) pg/mL Total Protein (6.4-8.2) g/dL Albumin (3.4-5.0) g/dL Globulin (2.3-3.5) g/dL Albumin/Globulin Ratio (1.2-2.2) Urine Color Yellow (YELLOW) Urine Appearance Clear (CLEAR) Urine pH 5.0 (5.0-8.0) Ur Specific [place] 1.015 (1.008-1.030) Urine Protein 100 H (NEGATIVE) mg/dL Urine Glucose (UA) Negative (NEGATIVE) mg/dL Urine Ketones Negative (NEGATIVE) mg/dL Urine Occult Blood Trace-intact H (NEGATIVE) Urine Nitrite Negative (NEGATIVE) Urine Bilirubin Negative (NEGATIVE) Urine Urobilinogen 0.2 (0.2-1.0) EU/dL Ur Leukocyte Esterase Negative (NEGATIVE) Urine RBC 0-5 (0-5) Urine WBC Not seen (0-5) Ur Epithelial Cells Not seen Amorphous Sediment Many Urine Bacteria Not seen Urine Mucus Not seen Meds: Medications Generic Name Dose Route Start Last Admin Trade Name Freq PRN Reason Stop Dose Admin Acetaminophen 650 mg 03/29/20 02:37 Tylenol PO Q4H PRN Pain (Mild 1-3)/fever Hydrocodone Bitart/Acetaminophen 1 tab 03/30/20 13:33 04/01/20 19:30 [place] 325-5 Mg PO 1 tab Q4H PRN Administration Pain (moderate 4-6) Albuterol 0 gm 03/29/20 03:02 Ventolin Hfa INH Q2H PRN Dyspnea Albuterol/Ipratropium 0 gm 03/29/20 11:00 04/06/20 21:59 Combivent Respimat INH 2 inhalation QIDRT JERRI Administration Benzocaine/Menthol 1 lozenge 03/31/20 18:28 04/03/20 17:53 Cepacol Sore Throat MUCMEM 1 janae 5XDAY PRN Administration Sore Throat Benzonatate 100 mg 03/30/20 13:30 Tessalon Perles PO TID PRN Cough Carvedilol 6.25 mg 04/06/20 17:00 04/06/20 16:48 Coreg PO 6.25 mg BIDMEALS JERRI Administration Dexamethasone 4 mg 04/04/20 21:00 04/06/20 21:59 Dexamethasone PO 4 mg BID JERRI Administration Dextrose 15 gm 03/29/20 15:30 Glutose 15 PO ONETIME PRN Hypoglycemia Dextrose/Water 50 ml 04/03/20 18:22 Dextrose 50% In Water IVPUSH ASDIRECTED PRN Hypoglycemia Diclofenac Sodium 0 gm 03/30/20 10:00 04/07/20 05:33 Voltaren 1% Gel TOP Not Given QID [facility] Diphenhydramine HCl 25 mg 03/29/20 03:02 03/29/20 04:12 Benadryl PO 25 mg Q6H PRN Administration Itching Enoxaparin Sodium 80 mg 03/29/20 04:00 04/07/20 03:21 Lovenox SUBCUT 80 mg Q24H [facility] Administration Fluticasone Propionate 0 gm 03/29/20 09:00 04/06/20 08:01 Flonase YASMINE 2 spray DAILY [facility] Administration Gabapentin 300 mg 03/29/20 09:00 04/06/20 21:58 Neurontin PO 300 mg TID JERRI Administration Glucagon 1 mg 04/03/20 18:22 Glucagen IM ASDIRECTED PRN Hypoglycemia Guaifenesin 600 mg 03/30/20 13:30 04/06/20 21:58 Mucinex PO 600 mg BID JERRI Administration Guaifenesin/Dextromethorphan 10 ml 03/30/20 13:30 Robitussin Dm PO Q6H PRN Cough Insulin Human Lispro 0 unit 04/03/20 20:00 04/06/20 22:01 Humalog SUBCUT 8 units QIDACANDBED [facility] Administration Protocol Losartan Potassium 50 mg 03/29/20 09:00 04/06/20 08:00 Cozaar PO 50 mg DAILY JERRI Administration Magnesium Oxide 400 mg 03/29/20 09:00 04/06/20 21:58 Magnesium Oxide PO 400 mg TID JERRI Administration Mometasone Furoate 0 gm 03/29/20 07:00 04/06/20 21:59 Asmanex Hfa 200mcg INH 2 inhalation BIDRT JERRI Administration Nystatin 0 gm 03/29/20 10:00 04/07/20 05:33 Nystop TOP Not Given QID JERRI Ondansetron HCl 4 mg 03/29/20 02:37 Zofran IV Q4H PRN Nausea/Vomiting Pantoprazole Sodium 40 mg 03/29/20 07:30 04/06/20 07:56 Protonix PO 40 mg ACBREAKFAST JERRI Administration Polyethylene Glycol 17 gm 03/29/20 02:37 Miralax PO DAILY PRN Constipation Ropinirole HCl 0.5 mg/ 1.5 mg 04/04/20 18:00 04/06/20 17:00 Ropinirole HCl 1 mg PO 1.5 mg BID@0900,1800 JERRI Administration Sodium Chloride 10 ml 03/29/20 02:37 Saline Flush FLUSH ASDIRECTED PRN Keep Vein Open Discontinued Medications Generic Name Dose Route Start Last Admin Trade Name Freq PRN Reason Stop Dose Admin Hydrocodone Bitart/Acetaminophen 1 tab 03/29/20 03:08 03/29/20 14:04 [place] 325-5 Mg PO 1 tab Q6H PRN Administration Pain (moderate 4-6) Albuterol 2 gm 03/29/20 00:28 03/29/20 00:59 Ventolin Hfa INH 03/29/20 00:29 2 inh ONETIME ONE Administration Albuterol/Ipratropium 0 gm 03/29/20 06:00 03/29/20 05:24 Combivent Respimat INH 2 puff QID [facility] Administration Carvedilol 3.125 mg 03/29/20 08:00 04/06/20 07:56 Coreg PO 3.125 mg BIDMEALS [facility] Administration Dexamethasone 6 mg 03/29/20 00:31 03/29/20 00:59 Decadron IVPUSH 03/29/20 00:32 6 mg ONETIME ONE Administration Dexamethasone 4 mg 03/30/20 01:00 Decadron IVPUSH 04/08/20 01:01 Q12H JERRI Dexamethasone 6 mg 03/29/20 03:15 Decadron IVPUSH 04/07/20 03:16 Q24H JERRI Dexamethasone 6 mg 03/30/20 01:00 03/30/20 00:28 Decadron IVPUSH 04/08/20 01:01 6 mg Q24H JERRI Administration Dexamethasone 4 mg 03/30/20 21:00 03/31/20 08:20 Decadron IVPUSH 04/08/20 21:01 4 mg Q12H JERRI Administration Diclofenac Sodium 4 gm 03/29/20 06:00 03/29/20 05:24 Voltaren 1% Gel TOP Not Given QID JERRI Enoxaparin Sodium 80 mg 03/29/20 02:37 03/29/20 04:35 Lovenox SUBCUT Not Given BEDTIME JERRI Furosemide 20 mg 03/31/20 06:23 03/31/20 08:24 Lasix IVPUSH 03/31/20 06:24 20 mg ONETIME ONE Administration Furosemide 40 mg 04/04/20 08:01 04/04/20 08:35 Lasix IVPUSH 04/04/20 08:02 40 mg ONETIME ONE Administration Furosemide 40 mg 04/06/20 13:00 Lasix IVPUSH 04/06/20 13:01 NOW ONE Furosemide 40 mg 04/06/20 12:55 04/06/20 13:11 Lasix PO 04/06/20 12:56 40 mg ONETIME ONE Administration Sodium Chloride 1,000 mls @ 100 mls/hr 03/29/20 00:30 Normal Saline IV ASDIRECTED [facility] Remdesivir 200 mg/ Sodium 250 mls @ 250 mls/hr 03/29/20 02:37 03/29/20 04:55 Chloride IV 03/29/20 02:38 250 mls/hr ONETIME ONE Administration Remdesivir 100 mg/ Sodium 100 mls @ 100 mls/hr 03/30/20 03:00 04/02/20 03:54 Chloride IV 04/02/20 03:59 100 mls/hr Q24H JERRI Administration Insulin Human Lispro 0 unit 03/29/20 17:00 04/03/20 19:47 Humalog SUBCUT Not Given QIDACANDBED [facility] Protocol Insulin Human Lispro 10 unit 04/03/20 18:22 04/03/20 18:27 Humalog SUBCUT 04/03/20 18:23 10 unit ONETIME ONE Administration Lorazepam 0.5 mg 03/29/20 02:33 03/29/20 02:46 Ativan IVPUSH 03/29/20 02:34 0.5 mg ONETIME ONE Administration Methylprednisolone Sodium Succinate 62.5 mg 03/31/20 12:00 04/04/20 11:49 Solu-Medrol IVPUSH 62.5 mg Q8H JERRI Administration Ropinirole HCl 1.5 mg 03/29/20 09:00 03/29/20 09:43 Requip PO 1.5 mg BID JERRI Administration Ropinirole HCl 0.5 mg/ 1.5 mg 03/29/20 21:00 04/04/20 08:00 Ropinirole HCl 1 mg PO 04/04/20 10:00 1.5 mg BID JERRI Administration - Re-Assessments/Exams Free Text/Narrative Re-Assessment/Exam: 03/29/20 02:49 pt has elevated bun at 100. Her creatnine is 2. Her chest xray shows some chf. Her ddimer is elevated. Departure - Departure Time of Disposition: 02:50 Disposition: Admitted As Inpatient 68 Condition: Fair Clinical Impression: COVID-19, Renal insufficiency - Discharge Information Sepsis Event Note (ED) - Evaluation Sepsis Screening Result: No Definite Risk
--- NOTE | 2020-03-29 02:19 | PCM.HP.2 ---
H&P History of Present Illness - General Date of Service: 03/29/20 Admit Problem/Dx: Admission Diagnosis/Problem Admission Diagnosis/Problem Hypoxia Source of Information: Patient, Old Records, Provider, RN Notes Reviewed History Limitations: Reports: Respiratory Distress - History of Present Illness Initial Comments - Free Text/Narative: Ms. Obrien is a 75-year-old woman who was admitted through the emergency department with shortness of breath cough myalgias and weakness secondary to COVID-19. She began to have symptoms about 6 days ago and at that time was found to be positive for COVID-19. Over the last 6 days she has become progressively more weak and short of breath. Because of progressive weakness and shortness of breath she presented to the emergency department this evening. She has a known history of COPD and is oxygen dependent requiring 2 L/min via n ana cannula at baseline. On assessment in the emergency department she was noted to be hypoxic despite supplemental oxygen. She has been increased to 5 to 6 L of oxygen via nasal cannula and with this has had saturations within adequate range. Chest x-ray obtained in the emergency department shows no obvious infiltrates, radiologic review is pending denies pain Pain Score (Numeric/FACES): 0 - Related Data Allergies/Adverse Reactions: Allergies Allergy/AdvReac Type Severity Reaction Status Date / Time hydrochlorothiazide Allergy Other Verified 03/29/20 02:13 [From Dyazide] loperamide [From Imodium A-D] Allergy Other Verified 03/29/20 02:13 oxybutynin Allergy Other Verified 03/29/20 02:13 [id number] Reductase Allergy Other Verified 03/29/20 02:13 Inhibitor triamterene [From Dyazide] Allergy Other Verified 03/29/20 02:13 budesonide [From Symbicort] AdvReac Nausea and Verified 03/29/20 02:13 Vomiting formoterol fumarate AdvReac Nausea and Verified 03/29/20 02:13 [From Symbicort] Vomiting pregabalin [From Lyrica] AdvReac Headache Verified 03/29/20 02:13 tizanidine AdvReac Nausea Verified 03/29/20 02:13 Home Medications: Home Meds Hydroxychloroquine Sulfate 200 mg PO DAILY 05/09/13 [History] cycloSPORINE [Restasis] 1 drop EYEBOTH BID 05/09/13 [History] Albuterol [Proventil Neb Soln] 3 ml INH Q6H PRN 09/22/15 [History] Albuterol [Ventolin HFA] 2 puff INH Q6H PRN 09/22/15 [History] Magnesium Oxide 400 mg PO TID 05/17/16 [History] Diclofenac Sodium [Voltaren] 4 gm TOP QID 09/26/18 [History] Gabapentin [Neurontin] 300 - 600 mg PO TID 09/26/18 [History] Triamcinolone Acetonide [Kenalog 0.1% Crm] 1 applic TOP TID PRN 09/26/18 [History] Ferrous Sulfate 325 mg PO TIDAC 12/24/18 [History] rOPINIRole [Requip] 1.5 tab PO BID 12/24/18 [History] Spironolactone [Aldactone] 25 mg PO DAILY 02/13/19 [History] Calcium Carbonate/Vitamin D3 [Caltrate 600+D 1500 MG-400 Units] 1 tab PO BID #60 tablet 02/16/19 [Rx] Losartan [Cozaar] 50 mg PO DAILY #30 tablet 03/30/19 [Rx] Acetaminophen/HYDROcodone [[place] 325-5 MG] 1 tab PO Q6H PRN 06/06/19 [History] Alendronate Sodium [Fosamax] 70 mg PO Q7D 06/06/19 [History] Cholecalciferol (Vitamin D3) [Vitamin D3] 1,000 unit PO BID 06/06/19 [History] Cyclobenzaprine [Flexeril] 5 mg PO TID 06/06/19 [History] Fluticasone Propionate [Flonase] 2 spray IH DAILY 06/06/19 [History] Pantoprazole [ProTONIX] 40 mg PO DAILY 06/06/19 [History] carvediloL [Coreg] 3.125 mg PO BID 06/06/19 [History] Bumetanide [Bumex] 2 mg PO BID #60 tab 06/08/19 [Rx] predniSONE [Prednisone] 40 mg PO DAILY #6 tablet 06/08/19 [Rx] Past Medical History HEENT History: Reports: Glaucoma, Impaired Vision Other HEENT History: Otitis externa of right ear, bilateral dry eyes Cardiovascular History: Reports: CAD, Heart Murmur, High Cholesterol, Hypertension, SOB on Exertion Other Cardiovascular History: RBBB,ventricular diastolic dysfunction Respiratory History: Reports: Asthma, COPD, Other (See Below) Other Respiratory History: pulmonary hypertension. Uses O2 at night. 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: Musculoskeletal History: Reports: Arthritis, Back Pain, Chronic, Fracture, Osteoporosis Other Musculoskeletal History: fx ankle Endocrine/Metabolic History: Reports: Diabetes, Type II, Obesity/BMI 30+, Osteoporosis Other Endocrine/Metabolic History: lupus Hematologic History: Reports: Anticoagulation Therapy Other Hematologic History: hx of is no longer on Immunologic History: Reports: SLE Other Immunologic History: lupus anticoagulant positive Dermatologic History: Reports: Cellulitis, Venous Stasis Dermatitis - Infectious Disease History Infectious Disease History: Reports: Chicken Pox - Past Surgical History Head Surgeries/Procedures: Reports: None HEENT Surgical History: Reports: None Cardiovascular Surgical History: Reports: None Other Cardiovascular Surgeries/Procedures: angiogram December 03 Respiratory Surgical History: Reports: None GI Surgical History: Reports: None Female Surgical History: Reports: Breast Biopsy Endocrine Surgical History: Reports: None Neurological Surgical History: Reports: None Musculoskeletal Surgical History: Reports: Other (See Below) Other Musculoskeletal Surgeries/Procedures:: left ankle repair Oncologic Surgical History: Reports: Biopsy of Breast Dermatological Surgical History: Reports: Skin Biopsy Social & Family History - Family History Family Medical History: No Pertinent Family History - Tobacco Use Tobacco Use Status *Q: Never Tobacco User - Caffeine Use Caffeine Use: Reports: Coffee Other Caffeine Use: 3 cups coffee daily, 1 can pop dailty - Recreational Drug Use Recreational Drug Use: No - Living Situation & Occupation Living situation: Reports: Single, Alone (lives alone in her home in [place], [place]., 2 children; son Palmer,who visits on weekends, Daughter two years ago of overdose. 3 grandchildren.) H&P Review of Systems - Review of Systems: Review Of Systems: See Below General: Reports: Malaise, Weakness, Fatigue. Denies: Fever, Chills HEENT: Reports: No Symptoms Pulmonary: Reports: Shortness of Breath, Wheezing, Cough, Sputum. Denies: Pleuritic Chest Pain, Hemoptysis Cardiovascular: Reports: Dyspnea on Exertion. Denies: Chest Pain, Palpitations, Orthopnea, PND, Edema, Lightheadedness Gastrointestinal: Reports: No Symptoms Genitourinary: Reports: No Symptoms Musculoskeletal: Reports: Muscle Pain, Muscle Stiffness Skin: Reports: No Symptoms Psychiatric: Reports: No Symptoms Neurological: Reports: No Symptoms Hematologic/Lymphatic: Reports: No Symptoms Immunologic: Reports: No Symptoms Exam - Exam Exam: See Below - Vital Signs Vital Signs: Last Vital Signs Temp 97.4 F 03/28/20 23:57 Pulse 58 L 03/28/20 23:57 Resp 19 03/28/20 23:57 BP 169/57 H 03/28/20 23:57 Pulse Ox 94 L 03/28/20 23:57 Weight: 164 lb - Exam Quality Assessment: Supplemental Oxygen, DVT Prophylaxis General: Alert, Oriented, Cooperative, Moderate Distress HEENT: Conjunctiva Clear, Hearing Intact, Normal Nasal Septum, Posterior Pharynx Clear, Pupils Equal. No: Mucosa Moist & [place] Neck: Supple, Trachea Midline, +2 Carotid Pulse wo Bruit Lungs: Decreased Breath Sounds, Rhonchi, Wheezing. No: Crackles, Rales Cardiovascular: Regular Rate, Regular Rhythm, Normal S1, Normal S2. No: Systolic Murmur, Diastolic Murmur GI/Abdominal Exam: Soft, Non-Tender, No Organomegaly, No Distention Extremities: Non-Tender, No Pedal Edema, Other (Ulcerated areas both lower extremities) Skin: Warm, Dry, Intact Neurological: Cranial Nerves Intact, Strength Equal Bilateral, Normal Speech, Normal Tone, Sensation Intact. No: Focal Deficit Neuro Extensive - Mental Status: Alert, Oriented x3, Normal Mood/Affect, Normal Cognition, Memory Intact - Patient Data Lab Results Last 24 hrs: Laboratory Results - last 24 hr 03/29/20 03/29/20 03/29/20 Range/Units 00:34 00:34 00:34 WBC 5.9 (4.5-11.0) K/uL RBC 4.27 (3.30-5.50) M/uL Hgb 11.5 L (12.0-15.0) g/dL Hct 37.9 (36.0-48.0) % MCV 89 (80-98) fL MCH 27 (27-31) pg MCHC 30 L (32-36) % Plt Count 156 (150-400) K/uL Neut % (Auto) 85 H (36-66) % Lymph % (Auto) 8 L (24-44) % [place] % (Auto) 7 H (2-6) % Eos % (Auto) 0 L (2-4) % Baso % (Auto) 0 (0-1) % D-Dimer, Quantitative 1613.37 H (0.0-500.0) ng/mL Sodium 139 L (140-148) mmol/L Potassium 4.6 (3.6-5.2) mmol/L Chloride 103 (100-108) mmol/L Carbon Dioxide 30 (21-32) mmol/L Anion Gap 10.6 (5.0-14.0) mmol/L BUN 100 H* D (7-18) mg/dL Creatinine 2.0 H D (0.6-1.0) mg/dL Est Cr Clr Drug Dosing 19.81 mL/min Estimated GFR (MDRD) 24 L (>60) Glucose 117 H (74-106) mg/dL Calcium 8.6 (8.5-10.1) mg/dL Total Bilirubin 0.7 D (0.2-1.0) mg/dL AST 54 H D (15-37) U/L ALT 22 (12-78) U/L Alkaline Phosphatase 78 (46-116) U/L C-Reactive Protein (0.0-0.3) mg/dL NT-Pro-B Natriuret Pep (5-125) pg/mL Total Protein 7.7 (6.4-8.2) g/dL Albumin 2.2 L (3.4-5.0) g/dL Globulin 5.5 H (2.3-3.5) g/dL Albumin/Globulin Ratio 0.4 L (1.2-2.2) Urine Color (YELLOW) Urine Appearance (CLEAR) Urine pH (5.0-8.0) Ur Specific [place] (1.008-1.030) Urine Protein (NEGATIVE) mg/dL Urine Glucose (UA) (NEGATIVE) mg/dL Urine Ketones (NEGATIVE) mg/dL Urine Occult Blood (NEGATIVE) Urine Nitrite (NEGATIVE) Urine Bilirubin (NEGATIVE) Urine Urobilinogen (0.2-1.0) EU/dL Ur Leukocyte Esterase (NEGATIVE) Urine RBC (0-5) Urine WBC (0-5) Ur Epithelial Cells Amorphous Sediment Urine Bacteria Urine Mucus 03/29/20 03/29/20 03/29/20 Range/Units 00:34 01:13 01:16 WBC (4.5-11.0) K/uL RBC (3.30-5.50) M/uL Hgb (12.0-15.0) g/dL Hct (36.0-48.0) % MCV (80-98) fL MCH (27-31) pg MCHC (32-36) % Plt Count (150-400) K/uL Neut % (Auto) (36-66) % Lymph % (Auto) (24-44) % [place] % (Auto) (2-6) % Eos % (Auto) (2-4) % Baso % (Auto) (0-1) % D-Dimer, Quantitative (0.0-500.0) ng/mL Sodium (140-148) mmol/L Potassium (3.6-5.2) mmol/L Chloride (100-108) mmol/L Carbon Dioxide (21-32) mmol/L Anion Gap (5.0-14.0) mmol/L BUN (7-18) mg/dL Creatinine (0.6-1.0) mg/dL Est Cr Clr Drug Dosing mL/min Estimated GFR (MDRD) (>60) Glucose (74-106) mg/dL Calcium (8.5-10.1) mg/dL Total Bilirubin (0.2-1.0) mg/dL AST (15-37) U/L ALT (12-78) U/L Alkaline Phosphatase (46-116) U/L C-Reactive Protein 11.03 H (0.0-0.3) mg/dL NT-Pro-B Natriuret Pep 18090 H (5-125) pg/mL Total Protein (6.4-8.2) g/dL Albumin (3.4-5.0) g/dL Globulin (2.3-3.5) g/dL Albumin/Globulin Ratio (1.2-2.2) Urine Color Yellow (YELLOW) Urine Appearance Clear (CLEAR) Urine pH 5.0 (5.0-8.0) Ur Specific [place] 1.015 (1.008-1.030) Urine Protein 100 H (NEGATIVE) mg/dL Urine Glucose (UA) Negative (NEGATIVE) mg/dL Urine Ketones Negative (NEGATIVE) mg/dL Urine Occult Blood Trace-intact H (NEGATIVE) Urine Nitrite Negative (NEGATIVE) Urine Bilirubin Negative (NEGATIVE) Urine Urobilinogen 0.2 (0.2-1.0) EU/dL Ur Leukocyte Esterase Negative (NEGATIVE) Urine RBC 0-5 (0-5) Urine WBC Not seen (0-5) Ur Epithelial Cells Not seen Amorphous Sediment Many Urine Bacteria Not seen Urine Mucus Not seen Result Diagrams: 03/29/20 00:34 03/29/20 00:34 Sepsis Event Note - Evaluation Sepsis Screening Result: No Definite Risk - Focused Exam Vital Signs: Vital Signs Temp Pulse Resp BP Pulse Ox 03/28/20 23:57 97.4 F 58 L 19 169/57 H 94 L 03/28/20 23:56 97.4 F 58 L 19 169/57 H 94 L *Q Meaningful Use (ADM) - VTE Risk Assess *Q Each Risk Factor Represents 1 Point: Obesity ( BMI > 25 kg/m2), Abnormal Pulmonary Function (COPD) Total Score 1 Point Risk Factors: 2 Each Risk Factor Represents 2 Points: Age 60 - 74 Years Total Score 2 Point Risk Factors: 2 Each Risk Factor Represents 3 Points: History of DVT/PE Total Score 3 Point Risk Factors: 3 Each Risk Factor Represents 5 Points: None Total Score 5 Point Risk Factors: 0 Venous Thromboembolism Risk Factor Score *Q: 7 Problem List Initiated/Reviewed/Updated: Yes Orders Last 24hrs: Active Orders 24 hr Category Date Time Status Patient Status Manage Transfer [TRANSFER] Routine ADT 03/29/20 02:08 Ordered RT Post Treatment Assessment [RC] Click to Edit Care 03/29/20 00:29 Active Chest 1V Frontal [CR] Stat Exams 03/29/20 00:05 Taken Resuscitation Status Routine Resus Stat 03/29/20 02:09 Ordered Assessment/Plan Comment:: ASSESSMENT AND PLAN COVID-19 INFECTION-with hypoxic respiratory failure. Although no obvious infiltrates noted on chest x-ray, radiologic review pending. She does have underlying COPD and uses oxygen at 2 L/min via nasal cannula. She has become progressively more compromised over the last week and in the emergency department is requiring 5 to 6 L of oxygen per minute to maintain adequate oxygenation. -Limit IV fluids -Remdesivir 200 mg IV now, then 100 mg IV every 24 hours starting tomorrow -Decadron 6 mg IV every 24 hours -Convalescent plasma daily x3 days -Therapeutic dose of Lovenox 80 mg subcu twice daily, secondary to Covid infection and history of previous deep vein thrombosis HYPOXIC RESPIRATORY FAILURE-secondary to COVID-19 and underlying COPD -Supplemental oxygen as needed -Trial of noninvasive positive pressure ventilation if she is found to have worsening respiratory failure COPD EXACERBATION-secondary to Covid infection, bilateral expiratory wheezes noted on exam -Albuterol inhaler every 2 hours as needed -Mometasone inhaler twice daily -Combivent inhaler 4 times daily -Decadron as above ACUTE KIDNEY INJURY-Baseline creatinine in the range of 1.1. Creatinine in the emergency department elevated at 2.0 with a GFR of 24 -Closely monitor renal function and urine output TYPE 2 DIABETES MELLITUS-currently on no active medical therapy. Glucose levels will likely increase secondary to glucocorticoid therapy -4 times daily glucometers -Low-dose sliding scale Humalog MAINTENANCE ISSUES -DVT prophylaxis; Lovenox as above -GI prophylaxis; continue outpatient PPI therapy -[place] catheter; not indicated -Nutrition; regular diet -Nicotine dependence; not required CODE STATUS-DNR/DNI ADMISSION STATUS-patient will be admitted to inpatient status, expect at least a 2 night hospital stay for evaluation and management of problems as outlined above. At the time of this admission I do not reasonably expected evaluation and management of this problem will require more than a 96 hour hospital stay. DISPOSITION-anticipate discharge to home after the hospital stay. - Mortality Measure Prognosis:: Poor
[2020-03-29] MEDS ORDERED: LORazepam 2 MG/ML SDV IVPUSH ONE (02:33)
[2020-03-29] MEDS ORDERED: Polyethylene Glycol 3350 Powder 17 GM Packet PO PRN (02:37)
[2020-03-29] MEDS ORDERED: Acetaminophen 325 MG Tab PO PRN (02:37)
[2020-03-29] MEDS ORDERED: Sodium Chloride 0.9% 10 ML Syringe FLUSH PRN (02:37)
[2020-03-29] MEDS ORDERED: Enoxaparin 80 MG/0.8 ML Syringe SUBCUT SCH ×2 (02:37→03:45)
[2020-03-29] MEDS ORDERED: Ondansetron 4 MG/2 ML SDV IV PRN (02:37)
[2020-03-29] MEDS ORDERED: REMDESIVIR 200 MG in Sodium Chloride 0.9% 250 ML IV ONE (02:37)
[2020-03-29] MEDS ORDERED: diphenhydrAMINE 25 MG Cap PO PRN (03:02)
[2020-03-29] MEDS ORDERED: Albuterol 8 GM Inhaler INH PRN (03:02)
[2020-03-29] MEDS ORDERED: Dexamethasone 4 MG/ML SDV IVPUSH SCH (03:15)
[2020-03-29] MEDS ORDERED: Alendronate 70 MG Tab PO SCH (03:15)
[2020-03-29] MEDS: Acetaminophen/HYDROcodone 325-5 MG Tab PO PRN ×2 (04:13→14:04)
[2020-03-29] MEDS: Enoxaparin 80 MG/0.8 ML Syringe SUBCUT SCH (04:57)
[2020-03-29] MEDS ORDERED: Diclofenac Sodium 1% Gel 100 GM Tube TOP SCH (06:00)
[2020-03-29] MEDS ORDERED: Albuterol/Ipratropium 4 GM Inhalation Spray INH SCH (06:00)
[2020-03-29] MEDS ORDERED: Non-Formulary Medication 1 Each (Cyclosporine [Restasis] 1 DROP) EYEBOTH SCH (09:00)
[2020-03-29] MEDS ORDERED: rOPINIRole 0.5 MG Tab PO SCH (09:00)
[2020-03-29] MEDS: Losartan 50 MG Tab PO SCH (09:41)
[2020-03-29] MEDS: Pantoprazole 40 MG Tab.CR PO SCH (09:42)
[2020-03-29] MEDS: Magnesium Oxide 400 MG Tab PO SCH ×3 (09:42→20:33)
[2020-03-29] MEDS: Carvedilol 3.125 MG Tab PO SCH ×2 (09:42→16:43)
[2020-03-29] MEDS: Gabapentin 300 MG Cap PO SCH ×3 (09:43→20:33)
[2020-03-29] MEDS: Mometasone Furoate HFA 200 mcg/Puff 13 GM Inhaler INH SCH ×2 (09:43→20:35)
[2020-03-29] MEDS: Nystatin Topical Powder 15 GM Bottle TOP SCH ×3 (10:00→23:27)
[2020-03-29] MEDS: Fluticasone Propionate Nasal Spray 16 GM Bottle NAS SCH (10:01)
[2020-03-29] MEDS: Albuterol/Ipratropium 4 GM Inhalation Spray INH SCH ×3 (11:22→20:36)
[2020-03-29] MEDS ORDERED: 50% Dextrose in Water 50 ML Syringe IV PRN (15:30)
[2020-03-29] MEDS ORDERED: Glucose Gel 15 GM in 37.5 GM Tube PO PRN (15:30)
[2020-03-29] MEDS: Insulin Lispro 100 Unit/ML 3 ML KwikPen SUBCUT SCH ×2 (16:46→20:50)
[2020-03-29] MEDS: ROPINIROLE PO SCH ×2 (20:33)
[2020-03-30] MEDS ORDERED: Dexamethasone 4 MG/ML SDV IVPUSH SCH ×2 (01:00)
[2020-03-30] MEDS: REMDESIVIR 100 MG in Sodium Chloride 0.9% 100 ML IV SCH (03:43)
[2020-03-30] MEDS: Enoxaparin 80 MG/0.8 ML Syringe SUBCUT SCH (03:45)
[2020-03-30] MEDS: Nystatin Topical Powder 15 GM Bottle TOP SCH ×4 (05:53→21:05)
[2020-03-30] MEDS: Mometasone Furoate HFA 200 mcg/Puff 13 GM Inhaler INH SCH ×2 (09:06→20:04)
[2020-03-30] MEDS: Albuterol/Ipratropium 4 GM Inhalation Spray INH SCH ×4 (09:07→20:07)
[2020-03-30] MEDS: Insulin Lispro 100 Unit/ML 3 ML KwikPen SUBCUT SCH ×4 (09:07→21:03)
[2020-03-30] MEDS: Carvedilol 3.125 MG Tab PO SCH ×2 (09:08→16:10)
[2020-03-30] MEDS: Pantoprazole 40 MG Tab.CR PO SCH (09:09)
[2020-03-30] MEDS: Fluticasone Propionate Nasal Spray 16 GM Bottle NAS SCH (09:09)
[2020-03-30] MEDS: Losartan 50 MG Tab PO SCH (09:09)
[2020-03-30] MEDS: Magnesium Oxide 400 MG Tab PO SCH ×3 (09:10→20:10)
[2020-03-30] MEDS: ROPINIROLE PO SCH ×4 (09:10→20:15)
[2020-03-30] MEDS: Gabapentin 300 MG Cap PO SCH ×3 (09:11→20:15)
--- NOTE | 2020-03-30 09:39 | CR ---
CHEST: Portable 03/29/2020 at 1:09 AM CLINICAL HISTORY:SOB, covid positive COMPARISON:06/06/2019 FINDINGS: Heart is enlarged. There is diffuse interstitial prominence. This is more notable in the lung bases where there is some superimposed scarring and atelectasis. IMPRESSION: Diffuse interstitial prominence some of which is chronic. Superimposed pneumonitis is not excluded. Patchy pleural parenchymal scarring and atelectasis in both lung bases similar to prior study
[2020-03-30] MEDS: Diclofenac Sodium 1% Gel 100 GM Tube TOP SCH ×3 (11:49→21:04)
[2020-03-30] MEDS ORDERED: Benzonatate 100 MG Cap PO PRN (13:30)
[2020-03-30] MEDS ORDERED: guaiFENesin/Dextromethorphan 100-10 MG/5 ML Soln 10 ML Cup PO PRN (13:30)
--- NOTE | 2020-03-30 13:38 | PCM.PN ---
- General Info Date of Service: 03/30/20 Subjective Update: No acute events overnight. She is requiring slightly more supplemental oxygen today at 8 L. She complains of a cough that is intermittently productive for sputum. She feels weak and feels short of breath but says she wants to go home. She did not have any fevers. So far she has been tolerating treatment with steroids and remdesivir. She is complaining of some bilateral ankle pain related to her compression wraps. D-dimer and CRP are slightly better today. Functional Status: Reports: Pain Controlled, Tolerating Diet - Review of Systems General: Reports: Weakness Pulmonary: Reports: Shortness of Breath, Cough - Patient Data Vitals - Most Recent: Last Vital Signs Temp 36.4 C 03/30/20 12:40 Pulse 52 L 03/30/20 12:40 Resp 20 03/30/20 12:40 BP 163/80 H 03/30/20 12:40 Pulse Ox 91 L 03/30/20 12:40 Weight - Most Recent: 85.275 kg I&O - Last 24 Hours: Intake & Output 03/29/20 03/30/20 03/30/20 22:59 06:59 14:59 Intake Total 400 242 Output Total 100 Balance 300 242 Lab Results Last 24 Hours: Laboratory Results - last 24 hr 03/29/20 03/29/20 03/29/20 Range/Units 02:37 16:30 21:00 WBC (4.5-11.0) K/uL RBC (3.30-5.50) M/uL Hgb (12.0-15.0) g/dL Hct (36.0-48.0) % MCV (80-98) fL MCH (27-31) pg MCHC (32-36) % Plt Count (150-400) K/uL Neut % (Auto) (36-66) % Lymph % (Auto) (24-44) % [place] % (Auto) (2-6) % Eos % (Auto) (2-4) % Baso % (Auto) (0-1) % D-Dimer, Quantitative (0.0-500.0) ng/mL Sodium (140-148) mmol/L Potassium (3.6-5.2) mmol/L Chloride (100-108) mmol/L Carbon Dioxide (21-32) mmol/L Anion Gap (5.0-14.0) mmol/L BUN (7-18) mg/dL Creatinine (0.6-1.0) mg/dL Est Cr Clr Drug Dosing mL/min Estimated GFR (MDRD) (>60) Glucose (74-106) mg/dL POC Glucose 301 H 226 H (74-106) MG/DL Calcium (8.5-10.1) mg/dL Total Bilirubin (0.2-1.0) mg/dL Direct Bilirubin (0.0-0.2) mg/dL AST (15-37) U/L ALT (12-78) U/L Alkaline Phosphatase (46-116) U/L C-Reactive Protein (0.0-0.3) mg/dL Total Protein (6.4-8.2) g/dL Albumin (3.4-5.0) g/dL Globulin (2.3-3.5) g/dL Albumin/Globulin Ratio (1.2-2.2) Blood Type A POSITIVE 03/30/20 03/30/20 03/30/20 Range/Units 05:00 05:00 05:00 WBC 7.7 (4.5-11.0) K/uL RBC 4.72 (3.30-5.50) M/uL Hgb 12.8 (12.0-15.0) g/dL Hct 41.7 (36.0-48.0) % MCV 88 (80-98) fL MCH 27 (27-31) pg MCHC 31 L (32-36) % Plt Count 173 (150-400) K/uL Neut % (Auto) 94 H (36-66) % Lymph % (Auto) 3 L (24-44) % [place] % (Auto) 3 (2-6) % Eos % (Auto) 0 L (2-4) % Baso % (Auto) 0 (0-1) % D-Dimer, Quantitative 987.00 H (0.0-500.0) ng/mL Sodium 144 (140-148) mmol/L Potassium 4.2 (3.6-5.2) mmol/L Chloride 107 (100-108) mmol/L Carbon Dioxide 32 (21-32) mmol/L Anion Gap 5.2 (5.0-14.0) mmol/L BUN 97 H* (7-18) mg/dL Creatinine 1.5 H (0.6-1.0) mg/dL Est Cr Clr Drug Dosing 26.42 mL/min Estimated GFR (MDRD) 34 L (>60) Glucose 121 H (74-106) mg/dL POC Glucose (74-106) MG/DL Calcium 8.2 L (8.5-10.1) mg/dL Total Bilirubin 0.5 (0.2-1.0) mg/dL Direct Bilirubin 0.23 H (0.0-0.2) mg/dL AST 41 H (15-37) U/L ALT 21 (12-78) U/L Alkaline Phosphatase 66 (46-116) U/L C-Reactive Protein (0.0-0.3) mg/dL Total Protein 6.6 (6.4-8.2) g/dL Albumin 1.8 L (3.4-5.0) g/dL Globulin 4.8 H (2.3-3.5) g/dL Albumin/Globulin Ratio 0.4 L (1.2-2.2) Blood Type 03/30/20 03/30/20 03/30/20 Range/Units 05:00 07:38 11:40 WBC (4.5-11.0) K/uL RBC (3.30-5.50) M/uL Hgb (12.0-15.0) g/dL Hct (36.0-48.0) % MCV (80-98) fL MCH (27-31) pg MCHC (32-36) % Plt Count (150-400) K/uL Neut % (Auto) (36-66) % Lymph % (Auto) (24-44) % [place] % (Auto) (2-6) % Eos % (Auto) (2-4) % Baso % (Auto) (0-1) % D-Dimer, Quantitative (0.0-500.0) ng/mL Sodium (140-148) mmol/L Potassium (3.6-5.2) mmol/L Chloride (100-108) mmol/L Carbon Dioxide (21-32) mmol/L Anion Gap (5.0-14.0) mmol/L BUN (7-18) mg/dL Creatinine (0.6-1.0) mg/dL Est Cr Clr Drug Dosing mL/min Estimated GFR (MDRD) (>60) Glucose (74-106) mg/dL POC Glucose 181 H 194 H (74-106) MG/DL Calcium (8.5-10.1) mg/dL Total Bilirubin (0.2-1.0) mg/dL Direct Bilirubin (0.0-0.2) mg/dL AST (15-37) U/L ALT (12-78) U/L Alkaline Phosphatase (46-116) U/L C-Reactive Protein 10.84 H (0.0-0.3) mg/dL Total Protein (6.4-8.2) g/dL Albumin (3.4-5.0) g/dL Globulin (2.3-3.5) g/dL Albumin/Globulin Ratio (1.2-2.2) Blood Type Med Orders - Current: Current Medications Acetaminophen (Tylenol) 650 mg PO Q4H PRN PRN Reason: Pain (Mild 1-3)/fever Albuterol (Ventolin Hfa) 0 gm INH Q2H PRN PRN Reason: Dyspnea Albuterol/Ipratropium (Combivent Respimat) 0 gm INH QIDRT [facility] Last Admin: 03/30/20 11:49 Dose: 2 inhalation Documented by: Carvedilol (Coreg) 3.125 mg PO BIDMEALS [facility] Last Admin: 03/30/20 09:08 Dose: 3.125 mg Documented by: Dextrose (Glutose 15) 15 gm PO ONETIME PRN PRN Reason: Hypoglycemia Dextrose/Water (Dextrose 50% In Water) 50 ml IV ONETIME PRN PRN Reason: Hypoglycemia Diclofenac Sodium (Voltaren 1% Gel) 0 gm TOP QID [facility] Last Admin: 03/30/20 11:49 Dose: 100 gm Documented by: Diphenhydramine HCl (Benadryl) 25 mg PO Q6H PRN PRN Reason: Itching Last Admin: 03/29/20 04:12 Dose: 25 mg Documented by: Enoxaparin Sodium (Lovenox) 80 mg SUBCUT Q24H [facility] Last Admin: 03/30/20 03:45 Dose: 80 mg Documented by: Fluticasone Propionate (Flonase) 0 gm YASMINE DAILY [facility] Last Admin: 03/30/20 09:09 Dose: 2 spray Documented by: Gabapentin (Neurontin) 300 mg PO TID [facility] Last Admin: 03/30/20 09:11 Dose: 300 mg Documented by: Remdesivir 100 mg/ Sodium (Chloride) 100 mls @ 100 mls/hr IV Q24H [facility] Stop: 04/02/20 03:59 Last Admin: 03/30/20 03:43 Dose: 100 mls/hr Documented by: Insulin Human Lispro (Humalog) 0 unit SUBCUT QIDACANDBED [facility]; Protocol Last Admin: 03/30/20 11:50 Dose: 1 units Documented by: Losartan Potassium (Cozaar) 50 mg PO DAILY [facility] Last Admin: 03/30/20 09:09 Dose: 50 mg Documented by: Magnesium Oxide (Magnesium Oxide) 400 mg PO TID [facility] Last Admin: 03/30/20 09:10 Dose: 400 mg Documented by: Mometasone Furoate (Asmanex Hfa 200mcg) 0 gm INH BIDRT [facility] Last Admin: 03/30/20 09:06 Dose: 2 inhalation Documented by: Nystatin (Nystop) 0 gm TOP QID [facility] Last Admin: 03/30/20 09:12 Dose: 1 applic Documented by: Ondansetron HCl (Zofran) 4 mg IV Q4H PRN PRN Reason: Nausea/Vomiting Pantoprazole Sodium (Protonix) 40 mg PO ACBREAKFAST [facility] Last Admin: 03/30/20 09:09 Dose: 40 mg Documented by: Polyethylene Glycol (Miralax) 17 gm PO DAILY PRN PRN Reason: Constipation Ropinirole HCl 0.5 mg/ (Ropinirole HCl 1 mg) 1.5 mg PO BID [facility] Last Admin: 03/30/20 09:10 Dose: 1.5 mg Documented by: Sodium Chloride (Saline Flush) 10 ml FLUSH ASDIRECTED PRN PRN Reason: Keep Vein Open Discontinued Medications Hydrocodone Bitart/Acetaminophen ([place] 325-5 Mg) 1 tab PO Q6H PRN PRN Reason: Pain (moderate 4-6) Last Admin: 03/29/20 14:04 Dose: 1 tab Documented by: Albuterol (Ventolin Hfa) 2 gm INH ONETIME ONE Stop: 03/29/20 00:29 Last Admin: 03/29/20 00:59 Dose: 2 inh Documented by: Albuterol/Ipratropium (Combivent Respimat) 0 gm INH QID [facility] Last Admin: 03/29/20 05:24 Dose: 2 puff Documented by: Dexamethasone (Decadron) 6 mg IVPUSH ONETIME ONE Stop: 03/29/20 00:32 Last Admin: 03/29/20 00:59 Dose: 6 mg Documented by: Dexamethasone (Decadron) 4 mg IVPUSH Q12H [facility] Stop: 04/08/20 01:01 Dexamethasone (Decadron) 6 mg IVPUSH Q24H [facility] Stop: 04/07/20 03:16 Dexamethasone (Decadron) 6 mg IVPUSH Q24H [facility] Stop: 04/08/20 01:01 Last Admin: 03/30/20 00:28 Dose: 6 mg Documented by: Diclofenac Sodium (Voltaren 1% Gel) 4 gm TOP QID [facility] Last Admin: 03/29/20 05:24 Dose: Not Given Documented by: Enoxaparin Sodium (Lovenox) 80 mg SUBCUT BEDTIME [facility] Last Admin: 03/29/20 04:35 Dose: Not Given Documented by: Sodium Chloride (Normal Saline) 1,000 mls @ 100 mls/hr IV ASDIRECTED [facility] Remdesivir 200 mg/ Sodium (Chloride) 250 mls @ 250 mls/hr IV ONETIME ONE Stop: 03/29/20 02:38 Last Admin: 03/29/20 04:55 Dose: 250 mls/hr Documented by: Lorazepam (Ativan) 0.5 mg IVPUSH ONETIME ONE Stop: 03/29/20 02:34 Last Admin: 03/29/20 02:46 Dose: 0.5 mg Documented by: Ropinirole HCl (Requip) 1.5 mg PO BID [facility] Last Admin: 03/29/20 09:43 Dose: 1.5 mg Documented by: - Exam Quality Assessment: Supplemental Oxygen General: Alert, Oriented, Cooperative, Mild Distress Lungs: Crackles (Diffuse), Wheezing (Moderate expiratory). No: Normal Respiratory Effort (Mild increase in work of breathing) Cardiovascular: Regular Rate, Regular Rhythm GI/Abdominal Exam: Normal Bowel Sounds, Soft, No Distention Extremities: No Pedal Edema. No: Increased Warmth Skin: Warm, Dry Wound/Incisions: Drainage (Mild serosanguineous from both lower legs), Other (Venous stasis ulcerations of both lower legs. No surrounding erythema or warmth. No significant drainage other than mild serosanguineous drainage.) Psy/Mental Status: Alert, Normal Affect Sepsis Event Note - Evaluation Sepsis Screening Result: No Definite Risk - Focused Exam Vital Signs: Vital Signs Temp Temp Pulse Pulse Resp BP BP 03/30/20 12:40 36.4 C 52 L 20 163/80 H 03/30/20 12:30 36.4 C 55 L 18 150/73 H 03/30/20 12:15 36.4 C 57 L 20 148/122 H 03/30/20 11:57 36.2 C 58 L 20 151/51 H 03/30/20 11:45 36.2 C 56 L 18 148/86 H 03/30/20 11:24 36.4 C 58 L 18 158/59 H 03/30/20 11:14 36.4 C 57 L 18 158/59 H 03/30/20 09:09 135/59 L 03/30/20 09:08 53 L 135/59 L 03/30/20 07:18 03/30/20 07:00 35.9 C L 53 L 20 135/59 L 03/30/20 03:37 35.9 C L 48 L 20 128/83 Pulse Ox 03/30/20 12:40 91 L 03/30/20 12:30 03/30/20 12:15 941 H 03/30/20 11:57 91 L 03/30/20 11:45 92 L 03/30/20 11:24 03/30/20 11:14 91 L 03/30/20 09:09 03/30/20 09:08 03/30/20 07:18 96 03/30/20 07:00 96 03/30/20 03:37 90 L - Problem List Review Problem List Initiated/Reviewed/Updated: Yes - My Orders Last 24 Hours: My Active Orders 03/30/20 13:30 Benzonatate [Tessalon Perles] 100 mg PO TID PRN Dextromethorphan/guaiFENesin [Robitussin DM] 10 ml PO Q6H PRN guaiFENesin [Mucinex] 600 mg PO BID 03/30/20 13:32 Dressing Change [Wound Care] [RC] DAILY 03/30/20 13:33 Acetaminophen/HYDROcodone [[place] 325-5 MG] 1 tab PO Q4H PRN 03/30/20 21:00 dexAMETHasone [Decadron] 4 mg IVPUSH Q12H 03/31/20 05:00 COMPREHENSIVE METABOLIC PN,CMP [CHEM] Timed - Plan Plan:: ASSESSMENT AND PLAN COVID-19 PNEUMONIA-Complicated by acute respiratory failure with hypoxia. Significant comorbidities and strong concern that things may deteriorate. She has been relatively stable since admission. Planning to increase steroids until wheezing improves or resolves. -Limit IV fluids -Remdesivir x5 days (day 2) -Decadron 4 mg IV every 12 hours (day 2) -Convalescent plasma daily x3 days (day 2) -Therapeutic dose of Lovenox 80 mg subcu twice daily, secondary to Covid infection and history of previous deep vein thrombosis HYPOXIC AND HYPERCAPNIC RESPIRATORY FAILURE-acute on chronic. Secondary to COVID-19 and underlying COPD. -Supplemental oxygen as needed -Trial of noninvasive positive pressure ventilation if she is found to have worsening respiratory failure COPD EXACERBATION-secondary to Covid infection, still wheezing. -Albuterol inhaler every 2 hours as needed -Mometasone inhaler twice daily -Combivent inhaler 4 times daily -Decadron as above ACUTE KIDNEY INJURY-Baseline creatinine in the range of 1.1. Creatinine has trended down but BUN remains elevated. No evidence for bleeding. -Closely monitor renal function and urine output TYPE 2 DIABETES MELLITUS-currently on no active medical therapy. Glucose levels moderately elevated while on steroids. -4 times daily glucometers -Low-dose sliding scale Humalog MAINTENANCE ISSUES -DVT prophylaxis; enoxaparin -GI prophylaxis; PPI -Villeda catheter; not indicated -Nutrition; regular diet CODE STATUS-DNR/DNI DISPOSITION-anticipate discharge to home with [facility] after the hospital stay if she survives the hospital stay Andrew Mojica MD
[2020-03-30] MEDS: guaiFENesin 600 MG Tab.ER PO SCH ×2 (15:28→20:10)
[2020-03-30] MEDS: Dexamethasone 4 MG/ML SDV IVPUSH SCH (20:12)
[2020-03-31] MEDS: REMDESIVIR 100 MG in Sodium Chloride 0.9% 100 ML IV SCH (02:19)
[2020-03-31] MEDS: Enoxaparin 80 MG/0.8 ML Syringe SUBCUT SCH (04:15)
[2020-03-31] MEDS: Nystatin Topical Powder 15 GM Bottle TOP SCH ×4 (05:40→21:25)
[2020-03-31] MEDS: Diclofenac Sodium 1% Gel 100 GM Tube TOP SCH ×4 (05:40→21:25)
[2020-03-31] MEDS ORDERED: Furosemide 20 MG/2 ML VIAL IVPUSH ONE (06:23)
[2020-03-31] MEDS: Mometasone Furoate HFA 200 mcg/Puff 13 GM Inhaler INH SCH ×2 (07:32→20:33)
[2020-03-31] MEDS: Albuterol/Ipratropium 4 GM Inhalation Spray INH SCH ×4 (07:32→20:33)
[2020-03-31] MEDS: Losartan 50 MG Tab PO SCH (08:19)
[2020-03-31] MEDS: Carvedilol 3.125 MG Tab PO SCH ×2 (08:19→17:09)
[2020-03-31] MEDS: Insulin Lispro 100 Unit/ML 3 ML KwikPen SUBCUT SCH ×4 (08:20→20:32)
[2020-03-31] MEDS: Dexamethasone 4 MG/ML SDV IVPUSH SCH (08:20)
[2020-03-31] MEDS: Acetaminophen/HYDROcodone 325-5 MG Tab PO PRN ×2 (08:22→18:12)
[2020-03-31] MEDS: ROPINIROLE PO SCH ×4 (08:24→20:34)
[2020-03-31] MEDS: Magnesium Oxide 400 MG Tab PO SCH ×3 (08:25→20:34)
[2020-03-31] MEDS: Fluticasone Propionate Nasal Spray 16 GM Bottle NAS SCH (08:25)
[2020-03-31] MEDS: Gabapentin 300 MG Cap PO SCH ×3 (08:25→20:34)
[2020-03-31] MEDS: Pantoprazole 40 MG Tab.CR PO SCH (08:25)
--- NOTE | 2020-03-31 10:35 | PCM.PN ---
- General Info Date of Service: 03/31/20 Subjective Update: No acute events overnight but patient has had a steady increase in her supplemental oxygen requirements. She is currently on 15 L with adequate oxygen saturations. She says that she feels better today and feels less short of breath. She did not have any fevers overnight. Appetite has been okay. Blood sugars are mildly elevated. Still having some discomfort in both lower legs. - Review of Systems General: Denies: Fever Pulmonary: Reports: Shortness of Breath - Patient Data Vitals - Most Recent: Last Vital Signs Temp 35.6 C L 03/31/20 10:09 Pulse 68 03/31/20 10:09 Resp 18 03/31/20 10:09 BP 93/53 L 03/31/20 10:09 Pulse Ox 95 03/31/20 10:09 Weight - Most Recent: 85.275 kg I&O - Last 24 Hours: Intake & Output 03/30/20 03/31/20 03/31/20 22:59 06:59 14:59 Intake Total 240 200 Output Total 450 Balance 240 -250 Lab Results Last 24 Hours: Laboratory Results - last 24 hr 03/29/20 03/30/20 03/30/20 Range/Units 02:37 11:40 16:30 Sodium (140-148) mmol/L Potassium (3.6-5.2) mmol/L Chloride (100-108) mmol/L Carbon Dioxide (21-32) mmol/L Anion Gap (5.0-14.0) mmol/L BUN (7-18) mg/dL Creatinine (0.6-1.0) mg/dL Est Cr Clr Drug Dosing mL/min Estimated GFR (MDRD) (>60) Glucose (74-106) mg/dL POC Glucose 194 H 163 H (74-106) MG/DL Calcium (8.5-10.1) mg/dL Total Bilirubin (0.2-1.0) mg/dL AST (15-37) U/L ALT (12-78) U/L Alkaline Phosphatase (46-116) U/L Total Protein (6.4-8.2) g/dL Albumin (3.4-5.0) g/dL Globulin (2.3-3.5) g/dL Albumin/Globulin Ratio (1.2-2.2) Blood Type A POSITIVE 03/30/20 03/31/20 03/31/20 Range/Units 21:00 05:11 07:30 Sodium 148 (140-148) mmol/L Potassium 4.4 (3.6-5.2) mmol/L Chloride 109 H (100-108) mmol/L Carbon Dioxide 32 (21-32) mmol/L Anion Gap 11.4 (5.0-14.0) mmol/L BUN 101 H* (7-18) mg/dL Creatinine 1.3 H (0.6-1.0) mg/dL Est Cr Clr Drug Dosing 30.48 mL/min Estimated GFR (MDRD) 40 L (>60) Glucose 150 H (74-106) mg/dL POC Glucose 177 H 173 H (74-106) MG/DL Calcium 8.2 L (8.5-10.1) mg/dL Total Bilirubin 0.5 (0.2-1.0) mg/dL AST 38 H (15-37) U/L ALT 22 (12-78) U/L Alkaline Phosphatase 63 (46-116) U/L Total Protein 6.4 (6.4-8.2) g/dL Albumin 1.8 L (3.4-5.0) g/dL Globulin 4.6 H (2.3-3.5) g/dL Albumin/Globulin Ratio 0.4 L (1.2-2.2) Blood Type Med Orders - Current: Current Medications Acetaminophen (Tylenol) 650 mg PO Q4H PRN PRN Reason: Pain (Mild 1-3)/fever Hydrocodone Bitart/Acetaminophen ([place] 325-5 Mg) 1 tab PO Q4H PRN PRN Reason: Pain (moderate 4-6) Last Admin: 03/31/20 08:22 Dose: 1 tab Documented by: Albuterol (Ventolin Hfa) 0 gm INH Q2H PRN PRN Reason: Dyspnea Albuterol/Ipratropium (Combivent Respimat) 0 gm INH QIDRT [facility] Last Admin: 03/31/20 07:32 Dose: 2 inhalation Documented by: Benzonatate (Tessalon Perles) 100 mg PO TID PRN PRN Reason: Cough [facility] Last Admin: 03/31/20 08:19 Dose: 3.125 mg Documented by: Dextrose (Glutose 15) 15 gm PO ONETIME PRN PRN Reason: Hypoglycemia Dextrose/Water (Dextrose 50% In Water) 50 ml IV ONETIME PRN PRN Reason: Hypoglycemia Diclofenac Sodium (Voltaren 1% Gel) 0 gm TOP QID [facility] Last Admin: 03/31/20 05:40 Dose: 1 gm Documented by: Diphenhydramine HCl (Benadryl) 25 mg PO Q6H PRN PRN Reason: Itching Last Admin: 03/29/20 04:12 Dose: 25 mg Documented by: Enoxaparin Sodium (Lovenox) 80 mg SUBCUT Q24H [facility] Last Admin: 03/31/20 04:15 Dose: 80 mg Documented by: Fluticasone Propionate (Flonase) 0 gm YASMINE DAILY [facility] Last Admin: 03/31/20 08:25 Dose: 2 spray Documented by: Gabapentin (Neurontin) 300 mg PO TID [facility] Last Admin: 03/31/20 08:25 Dose: 300 mg Documented by: Guaifenesin (Mucinex) 600 mg PO BID [facility] Last Admin: 03/30/20 20:10 Dose: 600 mg Documented by: Guaifenesin/Dextromethorphan (Robitussin Dm) 10 ml PO Q6H PRN PRN Reason: Cough Remdesivir 100 mg/ Sodium (Chloride) 100 mls @ 100 mls/hr IV Q24H [facility] Stop: 04/02/20 03:59 Last Admin: 03/31/20 02:19 Dose: 100 mls/hr Documented by: Insulin Human Lispro (Humalog) 0 unit SUBCUT QIDACANDBED [facility]; Protocol Last Admin: 03/31/20 08:20 Dose: 1 units Documented by: Losartan Potassium (Cozaar) 50 mg PO DAILY [facility] Last Admin: 03/31/20 08:19 Dose: 50 mg Documented by: Magnesium Oxide (Magnesium Oxide) 400 mg PO TID [facility] Last Admin: 03/31/20 08:25 Dose: 400 mg Documented by: Methylprednisolone Sodium Succinate (Solu-Medrol) 62.5 mg IVPUSH Q8H [facility] Mometasone Furoate (Asmanex Hfa 200mcg) 0 gm INH BIDRT [facility] Last Admin: 03/31/20 07:32 Dose: 2 inhalation Documented by: Nystatin (Nystop) 0 gm TOP QID [facility] Last Admin: 03/31/20 05:40 Dose: 1 applic Documented by: Ondansetron HCl (Zofran) 4 mg IV Q4H PRN PRN Reason: Nausea/Vomiting Pantoprazole Sodium (Protonix) 40 mg PO ACBREAKFAST [facility] Last Admin: 03/31/20 08:25 Dose: 40 mg Documented by: Polyethylene Glycol (Miralax) 17 gm PO DAILY PRN PRN Reason: Constipation Ropinirole HCl 0.5 mg/ (Ropinirole HCl 1 mg) 1.5 mg PO BID [facility] Last Admin: 03/31/20 08:24 Dose: 1.5 mg Documented by: Sodium Chloride (Saline Flush) 10 ml FLUSH ASDIRECTED PRN PRN Reason: Keep Vein Open Discontinued Medications Hydrocodone Bitart/Acetaminophen ([place] 325-5 Mg) 1 tab PO Q6H PRN PRN Reason: Pain (moderate 4-6) Last Admin: 03/29/20 14:04 Dose: 1 tab Documented by: Albuterol (Ventolin Hfa) 2 gm INH ONETIME ONE Stop: 03/29/20 00:29 Last Admin: 03/29/20 00:59 Dose: 2 inh Documented by: Albuterol/Ipratropium (Combivent Respimat) 0 gm INH QID [facility] Last Admin: 03/29/20 05:24 Dose: 2 puff Documented by: Dexamethasone (Decadron) 6 mg IVPUSH ONETIME ONE Stop: 03/29/20 00:32 Last Admin: 03/29/20 00:59 Dose: 6 mg Documented by: Dexamethasone (Decadron) 4 mg IVPUSH Q12H [facility] Stop: 04/08/20 01:01 Dexamethasone (Decadron) 6 mg IVPUSH Q24H [facility] Stop: 04/07/20 03:16 Dexamethasone (Decadron) 6 mg IVPUSH Q24H [facility] Stop: 04/08/20 01:01 Last Admin: 03/30/20 00:28 Dose: 6 mg Documented by: Dexamethasone (Decadron) 4 mg IVPUSH Q12H [facility] Stop: 04/08/20 21:01 Last Admin: 03/31/20 08:20 Dose: 4 mg Documented by: Diclofenac Sodium (Voltaren 1% Gel) 4 gm TOP QID [facility] Last Admin: 03/29/20 05:24 Dose: Not Given Documented by: Enoxaparin Sodium (Lovenox) 80 mg SUBCUT BEDTIME [facility] Last Admin: 03/29/20 04:35 Dose: Not Given Documented by: Furosemide (Lasix) 20 mg IVPUSH ONETIME ONE Stop: 03/31/20 06:24 Last Admin: 03/31/20 08:24 Dose: 20 mg Documented by: Sodium Chloride (Normal Saline) 1,000 mls @ 100 mls/hr IV ASDIRECTED [facility] Remdesivir 200 mg/ Sodium (Chloride) 250 mls @ 250 mls/hr IV ONETIME ONE Stop: 03/29/20 02:38 Last Admin: 03/29/20 04:55 Dose: 250 mls/hr Documented by: Lorazepam (Ativan) 0.5 mg IVPUSH ONETIME ONE Stop: 03/29/20 02:34 Last Admin: 03/29/20 02:46 Dose: 0.5 mg Documented by: Ropinirole HCl (Requip) 1.5 mg PO BID [facility] Last Admin: 03/29/20 09:43 Dose: 1.5 mg Documented by: - Exam Quality Assessment: Supplemental Oxygen General: Alert, Oriented, Cooperative, No Acute Distress Lungs: Normal Respiratory Effort, Crackles (diffuse ) Cardiovascular: Regular Rate, Regular Rhythm GI/Abdominal Exam: Soft, No Distention Extremities: No Pedal Edema, Other (both lower legs wrapped with coban) Skin: Warm, Dry Psy/Mental Status: Alert, Normal Affect Sepsis Event Note - Evaluation Sepsis Screening Result: No Definite Risk - Focused Exam Vital Signs: Vital Signs Temp Pulse Pulse Resp BP BP Pulse Ox 03/31/20 10:09 35.6 C L 68 18 93/53 L 95 03/31/20 08:19 62 161/51 H 03/31/20 07:51 93 L 03/31/20 07:00 35.9 C L 62 18 161/51 H 94 L 03/31/20 02:31 36.2 C 58 L 20 154/58 H 92 L 03/31/20 01:19 92 L 03/30/20 22:41 36.2 C 54 L 20 141/52 H 94 L - Problem List Review Problem List Initiated/Reviewed/Updated: Yes - My Orders Last 24 Hours: My Active Orders 03/30/20 13:30 Benzonatate [Tessalon Perles] 100 mg PO TID PRN Dextromethorphan/guaiFENesin [Robitussin DM] 10 ml PO Q6H PRN guaiFENesin [Mucinex] 600 mg PO BID 03/30/20 13:32 Dressing Change [Wound Care] [RC] DAILY 03/30/20 13:33 Acetaminophen/HYDROcodone [[place] 325-5 MG] 1 tab PO Q4H PRN 03/31/20 10:31 Nurse Communication: Isolation [RC] ASDIRECTED Isolation [COMM] Routine 03/31/20 12:00 methylPREDNISolone Sod Succ [Solu-MEDROL] 62.5 mg IVPUSH Q8H 04/01/20 05:00 C-REACTIVE PROTEIN [CHEM] Timed CBC W/O DIFF,HEMOGRAM [HEME] Timed (1) COMPREHENSIVE METABOLIC PN,CMP [CHEM] Timed D-DIMER QUANTITATIVE [COAG] Timed PROCALCITONIN [CHEM] Routine - Plan Plan:: ASSESSMENT AND PLAN COVID-19 PNEUMONIA-Complicated by acute respiratory failure with hypoxia. Significant comorbidities and strong concern that things may deteriorate. Significant increase in supplemental oxygen requirements overnight. Symptomatically feeling better today. Volume status appears appropriate at this time but she did receive a dose of furosemide earlier this morning. -Limit IV fluids -Remdesivir x5 days (day 3) -Steroids, changing to Solu-Medrol as below (day 3) -Convalescent plasma daily x3 days (day 3) -Therapeutic dose of Lovenox 80 mg subcu twice daily, secondary to Covid infection and history of previous deep vein thrombosis -Family was updated today HYPOXIC AND HYPERCAPNIC RESPIRATORY FAILURE-acute on chronic. Secondary to COVID-19 and underlying COPD. Currently on 15 L of high flow nasal cannula. -Supplemental oxygen as needed -Trial of noninvasive positive pressure ventilation if she is found to have worsening respiratory failure COPD EXACERBATION-secondary to Covid infection, still wheezing. -Change steroids to Solu-Medrol -Albuterol inhaler every 2 hours as needed -Mometasone inhaler twice daily -Combivent inhaler 4 times daily ACUTE KIDNEY INJURY-Baseline creatinine in the range of 1.1. Creatinine has trended down but BUN remains elevated. No evidence for bleeding. -Closely monitor renal function and urine output TYPE 2 DIABETES MELLITUS-currently on no active medical therapy. Blood sugars moderately elevated with steroid use. -4 times daily glucometers -Low-dose sliding scale Humalog MAINTENANCE ISSUES -DVT prophylaxis; enoxaparin -GI prophylaxis; PPI -Villeda catheter; not indicated -Nutrition; regular diet CODE STATUS-DNR/DNI DISPOSITION-anticipate discharge to home with [facility] after the hospital stay if she survives the hospital stay Andrew Mojica MD
[2020-03-31] MEDS: guaiFENesin 600 MG Tab.ER PO SCH ×2 (10:48→20:34)
[2020-03-31] MEDS: methylPREDNISolone Sodium Succinate 125 MG/2 ML SDV IVPUSH SCH ×2 (12:06→20:32)
[2020-03-31] MEDS ORDERED: Benzocaine/Cetylpyridinium/Menthol Lozenge MUCMEM PRN (18:28)
[2020-04-01] MEDS: methylPREDNISolone Sodium Succinate 125 MG/2 ML SDV IVPUSH SCH ×3 (03:33→19:31)
[2020-04-01] MEDS: Enoxaparin 80 MG/0.8 ML Syringe SUBCUT SCH (03:34)
[2020-04-01] MEDS: REMDESIVIR 100 MG in Sodium Chloride 0.9% 100 ML IV SCH (03:34)
[2020-04-01] MEDS: Nystatin Topical Powder 15 GM Bottle TOP SCH ×4 (05:04→22:05)
[2020-04-01] MEDS: Diclofenac Sodium 1% Gel 100 GM Tube TOP SCH ×4 (05:09→22:05)
[2020-04-01] MEDS: Mometasone Furoate HFA 200 mcg/Puff 13 GM Inhaler INH SCH ×2 (07:28→22:04)
[2020-04-01] MEDS: Albuterol/Ipratropium 4 GM Inhalation Spray INH SCH ×4 (07:29→22:04)
[2020-04-01] MEDS: Carvedilol 3.125 MG Tab PO SCH ×2 (08:14→16:34)
[2020-04-01] MEDS: Gabapentin 300 MG Cap PO SCH ×3 (08:15→22:03)
[2020-04-01] MEDS: Losartan 50 MG Tab PO SCH (08:15)
[2020-04-01] MEDS: ROPINIROLE PO SCH ×4 (08:15→22:06)
[2020-04-01] MEDS: guaiFENesin 600 MG Tab.ER PO SCH ×2 (08:15→22:03)
[2020-04-01] MEDS: Magnesium Oxide 400 MG Tab PO SCH ×3 (08:15→22:03)
[2020-04-01] MEDS: Fluticasone Propionate Nasal Spray 16 GM Bottle NAS SCH (08:17)
[2020-04-01] MEDS: Insulin Lispro 100 Unit/ML 3 ML KwikPen SUBCUT SCH ×4 (08:17→19:54)
[2020-04-01] MEDS: Pantoprazole 40 MG Tab.CR PO SCH (08:17)
--- NOTE | 2020-04-01 10:54 | PCM.PN ---
- General Info Date of Service: 04/01/20 Subjective Update: There were no acute events overnight. Oxygenation is stable but she does continue to require 15 L of supplemental oxygen. She feels a little less short of breath today but still feels tightness in her chest with breathing. She is producing some clear and some greenish sputum. Appetite is getting better. Strength is stable. She did not have any fevers. D-dimer is slightly better today and C-reactive protein has improved since it was last checked 2 days ago. Functional Status: Reports: Pain Controlled, Tolerating Diet - Review of Systems General: Reports: Weakness Pulmonary: Reports: Shortness of Breath, Cough - Patient Data Vitals - Most Recent: Last Vital Signs Temp 36.5 C 04/01/20 10:23 Pulse 73 04/01/20 10:23 Resp 20 04/01/20 10:23 BP 128/53 L 04/01/20 10:23 Pulse Ox 93 L 04/01/20 10:23 Weight - Most Recent: 85.275 kg I&O - Last 24 Hours: Intake & Output 03/31/20 04/01/20 04/01/20 22:59 06:59 14:59 Intake Total 340 800 Output Total 300 500 Balance 40 800 -500 Lab Results Last 24 Hours: Laboratory Results - last 24 hr 03/29/20 03/31/20 03/31/20 Range/Units 02:37 11:30 16:30 WBC (4.5-11.0) K/uL RBC (3.30-5.50) M/uL Hgb (12.0-15.0) g/dL Hct (36.0-48.0) % MCV (80-98) fL MCH (27-31) pg MCHC (32-36) % Plt Count (150-400) K/uL D-Dimer, Quantitative (0.0-500.0) ng/mL Sodium (140-148) mmol/L Potassium (3.6-5.2) mmol/L Chloride (100-108) mmol/L Carbon Dioxide (21-32) mmol/L Anion Gap (5.0-14.0) mmol/L BUN (7-18) mg/dL Creatinine (0.6-1.0) mg/dL Est Cr Clr Drug Dosing mL/min Estimated GFR (MDRD) (>60) Glucose (74-106) mg/dL POC Glucose 312 H 153 H (74-106) MG/DL Calcium (8.5-10.1) mg/dL Total Bilirubin (0.2-1.0) mg/dL AST (15-37) U/L ALT (12-78) U/L Alkaline Phosphatase (46-116) U/L C-Reactive Protein (0.0-0.3) mg/dL Total Protein (6.4-8.2) g/dL Albumin (3.4-5.0) g/dL Globulin (2.3-3.5) g/dL Albumin/Globulin Ratio (1.2-2.2) Procalcitonin ng/mL Blood Type A POSITIVE 03/31/20 04/01/20 04/01/20 Range/Units 21:00 05:35 05:35 WBC (4.5-11.0) K/uL RBC (3.30-5.50) M/uL Hgb (12.0-15.0) g/dL Hct (36.0-48.0) % MCV (80-98) fL MCH (27-31) pg MCHC (32-36) % Plt Count (150-400) K/uL D-Dimer, Quantitative 920.67 H (0.0-500.0) ng/mL Sodium 146 (140-148) mmol/L Potassium 4.6 (3.6-5.2) mmol/L Chloride 109 H (100-108) mmol/L Carbon Dioxide 30 (21-32) mmol/L Anion Gap 11.6 (5.0-14.0) mmol/L BUN 108 H* (7-18) mg/dL Creatinine 1.5 H (0.6-1.0) mg/dL Est Cr Clr Drug Dosing 26.42 mL/min Estimated GFR (MDRD) 34 L (>60) Glucose 166 H (74-106) mg/dL POC Glucose 244 H (74-106) MG/DL Calcium 8.2 L (8.5-10.1) mg/dL Total Bilirubin 0.5 (0.2-1.0) mg/dL AST 36 (15-37) U/L ALT 23 (12-78) U/L Alkaline Phosphatase 67 (46-116) U/L C-Reactive Protein 6.04 H (0.0-0.3) mg/dL Total Protein 6.8 (6.4-8.2) g/dL Albumin 2.1 L (3.4-5.0) g/dL Globulin 4.7 H (2.3-3.5) g/dL Albumin/Globulin Ratio 0.5 L (1.2-2.2) Procalcitonin ng/mL Blood Type 04/01/20 04/01/20 04/01/20 Range/Units 05:35 05:35 07:30 WBC 11.0 (4.5-11.0) K/uL RBC 4.69 (3.30-5.50) M/uL Hgb 12.6 (12.0-15.0) g/dL Hct 41.8 (36.0-48.0) % MCV 89 (80-98) fL MCH 27 (27-31) pg MCHC 30 L (32-36) % Plt Count 193 (150-400) K/uL D-Dimer, Quantitative (0.0-500.0) ng/mL Sodium (140-148) mmol/L Potassium (3.6-5.2) mmol/L Chloride (100-108) mmol/L Carbon Dioxide (21-32) mmol/L Anion Gap (5.0-14.0) mmol/L BUN (7-18) mg/dL Creatinine (0.6-1.0) mg/dL Est Cr Clr Drug Dosing mL/min Estimated GFR (MDRD) (>60) Glucose (74-106) mg/dL POC Glucose 180 H (74-106) MG/DL Calcium (8.5-10.1) mg/dL Total Bilirubin (0.2-1.0) mg/dL AST (15-37) U/L ALT (12-78) U/L Alkaline Phosphatase (46-116) U/L C-Reactive Protein (0.0-0.3) mg/dL Total Protein (6.4-8.2) g/dL Albumin (3.4-5.0) g/dL Globulin (2.3-3.5) g/dL Albumin/Globulin Ratio (1.2-2.2) Procalcitonin 0.13 ng/mL Blood Type Med Orders - Current: Current Medications Acetaminophen (Tylenol) 650 mg PO Q4H PRN PRN Reason: Pain (Mild 1-3)/fever Hydrocodone Bitart/Acetaminophen ([place] 325-5 Mg) 1 tab PO Q4H PRN PRN Reason: Pain (moderate 4-6) Last Admin: 03/31/20 18:12 Dose: 1 tab Documented by: Albuterol (Ventolin Hfa) 0 gm INH Q2H PRN PRN Reason: Dyspnea Albuterol/Ipratropium (Combivent Respimat) 0 gm INH QIDRT [facility] Last Admin: 04/01/20 10:07 Dose: 2 inhalation Documented by: Benzocaine/Menthol (Cepacol Sore Throat) 1 lozenge MUCMEM 5XDAY PRN PRN Reason: Sore Throat Benzonatate (Tessalon Perles) 100 mg PO TID PRN PRN Reason: Cough Carvedilol (Coreg) 3.125 mg PO BIDMEALS [facility] Last Admin: 04/01/20 08:14 Dose: 3.125 mg Documented by: Dextrose (Glutose 15) 15 gm PO ONETIME PRN PRN Reason: Hypoglycemia Dextrose/Water (Dextrose 50% In Water) 50 ml IV ONETIME PRN PRN Reason: Hypoglycemia Diclofenac Sodium (Voltaren 1% Gel) 0 gm TOP QID [facility] Last Admin: 04/01/20 10:07 Dose: 1 applic Documented by: Diphenhydramine HCl (Benadryl) 25 mg PO Q6H PRN PRN Reason: Itching Last Admin: 03/29/20 04:12 Dose: 25 mg Documented by: Enoxaparin Sodium (Lovenox) 80 mg SUBCUT Q24H [facility] Last Admin: 04/01/20 03:34 Dose: 80 mg Documented by: Fluticasone Propionate (Flonase) 0 gm YASMINE DAILY [facility] Last Admin: 04/01/20 08:17 Dose: 2 spray Documented by: Gabapentin (Neurontin) 300 mg PO TID [facility] Last Admin: 04/01/20 08:15 Dose: 300 mg Documented by: Guaifenesin (Mucinex) 600 mg PO BID [facility] Last Admin: 04/01/20 08:15 Dose: 600 mg Documented by: Guaifenesin/Dextromethorphan (Robitussin Dm) 10 ml PO Q6H PRN PRN Reason: Cough Remdesivir 100 mg/ Sodium (Chloride) 100 mls @ 100 mls/hr IV Q24H [facility] Stop: 04/02/20 03:59 Last Admin: 04/01/20 03:34 Dose: 100 mls/hr Documented by: Insulin Human Lispro (Humalog) 0 unit SUBCUT QIDACANDBED [facility]; Protocol Last Admin: 04/01/20 08:17 Dose: 1 units Documented by: Losartan Potassium (Cozaar) 50 mg PO DAILY [facility] Last Admin: 04/01/20 08:15 Dose: 50 mg Documented by: Magnesium Oxide (Magnesium Oxide) 400 mg PO TID [facility] Last Admin: 04/01/20 08:15 Dose: 400 mg Documented by: Methylprednisolone Sodium Succinate (Solu-Medrol) 62.5 mg IVPUSH Q8H [facility] Last Admin: 04/01/20 03:33 Dose: 62.5 mg Documented by: Mometasone Furoate (Asmanex Hfa 200mcg) 0 gm INH BIDRT [facility] Last Admin: 04/01/20 07:28 Dose: 2 inhalation Documented by: Nystatin (Nystop) 0 gm TOP QID [facility] Last Admin: 04/01/20 10:07 Dose: 1 applic Documented by: Ondansetron HCl (Zofran) 4 mg IV Q4H PRN PRN Reason: Nausea/Vomiting Pantoprazole Sodium (Protonix) 40 mg PO ACBREAKFAST [facility] Last Admin: 04/01/20 08:17 Dose: 40 mg Documented by: Polyethylene Glycol (Miralax) 17 gm PO DAILY PRN PRN Reason: Constipation Ropinirole HCl 0.5 mg/ (Ropinirole HCl 1 mg) 1.5 mg PO BID [facility] Last Admin: 04/01/20 08:15 Dose: 1.5 mg Documented by: Sodium Chloride (Saline Flush) 10 ml FLUSH ASDIRECTED PRN PRN Reason: Keep Vein Open Discontinued Medications Hydrocodone Bitart/Acetaminophen ([place] 325-5 Mg) 1 tab PO Q6H PRN PRN Reason: Pain (moderate 4-6) Last Admin: 03/29/20 14:04 Dose: 1 tab Documented by: Albuterol (Ventolin Hfa) 2 gm INH ONETIME ONE Stop: 03/29/20 00:29 Last Admin: 03/29/20 00:59 Dose: 2 inh Documented by: Albuterol/Ipratropium (Combivent Respimat) 0 gm INH QID [facility] Last Admin: 03/29/20 05:24 Dose: 2 puff Documented by: Dexamethasone (Decadron) 6 mg IVPUSH ONETIME ONE Stop: 03/29/20 00:32 Last Admin: 03/29/20 00:59 Dose: 6 mg Documented by: Dexamethasone (Decadron) 4 mg IVPUSH Q12H [facility] Stop: 04/08/20 01:01 Dexamethasone (Decadron) 6 mg IVPUSH Q24H [facility] Stop: 04/07/20 03:16 Dexamethasone (Decadron) 6 mg IVPUSH Q24H [facility] Stop: 04/08/20 01:01 Last Admin: 03/30/20 00:28 Dose: 6 mg Documented by: Dexamethasone (Decadron) 4 mg IVPUSH Q12H [facility] Stop: 04/08/20 21:01 Last Admin: 03/31/20 08:20 Dose: 4 mg Documented by: Diclofenac Sodium (Voltaren 1% Gel) 4 gm TOP QID [facility] Last Admin: 03/29/20 05:24 Dose: Not Given Documented by: Enoxaparin Sodium (Lovenox) 80 mg SUBCUT BEDTIME [facility] Last Admin: 03/29/20 04:35 Dose: Not Given Documented by: Furosemide (Lasix) 20 mg IVPUSH ONETIME ONE Stop: 03/31/20 06:24 Last Admin: 03/31/20 08:24 Dose: 20 mg Documented by: Sodium Chloride (Normal Saline) 1,000 mls @ 100 mls/hr IV ASDIRECTED [facility] Remdesivir 200 mg/ Sodium (Chloride) 250 mls @ 250 mls/hr IV ONETIME ONE Stop: 03/29/20 02:38 Last Admin: 03/29/20 04:55 Dose: 250 mls/hr Documented by: Lorazepam (Ativan) 0.5 mg IVPUSH ONETIME ONE Stop: 03/29/20 02:34 Last Admin: 03/29/20 02:46 Dose: 0.5 mg Documented by: Ropinirole HCl (Requip) 1.5 mg PO BID [facility] Last Admin: 03/29/20 09:43 Dose: 1.5 mg Documented by: - Exam Quality Assessment: Supplemental Oxygen General: Alert, Oriented, Cooperative, No Acute Distress Lungs: Normal Respiratory Effort, Crackles (mild diffuse), Wheezing (moderate mid to end expiratory ) Cardiovascular: Regular Rate, Regular Rhythm GI/Abdominal Exam: Soft, No Distention Extremities: No Pedal Edema, Other (both lower legs wrapped with unna boots ) Skin: Warm, Dry Psy/Mental Status: Alert, Normal Affect Sepsis Event Note - Evaluation Sepsis Screening Result: No Definite Risk - Focused Exam Vital Signs: Vital Signs Temp Pulse Pulse Resp BP BP BP 04/01/20 10:23 36.5 C 73 20 128/53 L 04/01/20 08:15 112/98 H 04/01/20 08:14 63 112/98 H 04/01/20 08:12 36.5 C 69 20 112/98 H 04/01/20 07:11 04/01/20 03:00 36.2 C 60 20 146/38 H 04/01/20 00:20 04/01/20 00:00 63 20 Pulse Ox 04/01/20 10:23 93 L 04/01/20 08:15 04/01/20 08:14 04/01/20 08:12 94 L 04/01/20 07:11 97 04/01/20 03:00 96 04/01/20 00:20 94 L 04/01/20 00:00 93 L - Problem List Review Problem List Initiated/Reviewed/Updated: Yes - My Orders Last 24 Hours: My Active Orders 03/31/20 10:31 Nurse Communication: Isolation [RC] ASDIRECTED Isolation [COMM] Routine 03/31/20 12:00 methylPREDNISolone Sod Succ [Solu-MEDROL] 62.5 mg IVPUSH Q8H 03/31/20 18:28 Benzocaine/Cetylpyrd/Menthol [Cepacol Sore Throat] 1 lozenge MUCMEM 5XDAY PRN 04/01/20 10:52 Consult to Physician [CONS] Routine 04/01/20 10:53 Notify Provider Consults [RC] ASDIRECTED 04/02/20 05:00 COMPREHENSIVE METABOLIC PN,CMP [CHEM] Timed - Plan Plan:: ASSESSMENT AND PLAN COVID-19 PNEUMONIA-Complicated by acute respiratory failure with hypoxia. Oxygenation stable but still quite compromised. Tolerating treatment so far. Still on high flow oxygen. -Limit IV fluids -Remdesivir x5 days (day 4) -Continue Solu-Medrol as below (day 4) -Convalescent plasma daily x3 days (3 days complete) -Therapeutic dose of Lovenox 80 mg subcu twice daily, secondary to Covid infection and history of previous deep vein thrombosis -Family was updated today HYPOXIC AND HYPERCAPNIC RESPIRATORY FAILURE-acute on chronic. Secondary to COVID-19 and underlying COPD. Currently on 15 L of high flow nasal cannula. -Supplemental oxygen as needed -Trial of noninvasive positive pressure ventilation if she is found to have worsening respiratory failure COPD EXACERBATION-secondary to Covid infection, still wheezing but improved compared to yesterday. -Continue Solu-Medrol -Albuterol inhaler every 2 hours as needed -Mometasone inhaler twice daily -Combivent inhaler 4 times daily ACUTE KIDNEY INJURY-Baseline creatinine in the range of 1.1. Creatinine has remained mildly elevated and BUN is significantly elevated but stable. -Closely monitor renal function and urine output TYPE 2 DIABETES MELLITUS-currently on no active medical therapy. Blood sugars moderately elevated with steroid use. -4 times daily glucometers -Low-dose sliding scale Humalog MAINTENANCE ISSUES -DVT prophylaxis; enoxaparin -GI prophylaxis; PPI -Villeda catheter; not indicated -Nutrition; regular diet CODE STATUS-DNR/DNI DISPOSITION-anticipate discharge to home with [facility] after the hospital stay if she survives the hospital stay Andrew Mojica MD
[2020-04-01] MEDS: Acetaminophen/HYDROcodone 325-5 MG Tab PO PRN ×2 (13:32→19:30)
[2020-04-02] MEDS: REMDESIVIR 100 MG in Sodium Chloride 0.9% 100 ML IV SCH (03:54)
[2020-04-02] MEDS: methylPREDNISolone Sodium Succinate 125 MG/2 ML SDV IVPUSH SCH ×3 (03:57→21:33)
[2020-04-02] MEDS: Enoxaparin 80 MG/0.8 ML Syringe SUBCUT SCH (03:58)
[2020-04-02] MEDS: Diclofenac Sodium 1% Gel 100 GM Tube TOP SCH ×4 (05:21→21:29)
[2020-04-02] MEDS: Nystatin Topical Powder 15 GM Bottle TOP SCH ×4 (05:21→21:29)
[2020-04-02] MEDS: Albuterol/Ipratropium 4 GM Inhalation Spray INH SCH ×4 (07:31→21:26)
[2020-04-02] MEDS: Mometasone Furoate HFA 200 mcg/Puff 13 GM Inhaler INH SCH ×2 (07:31→21:32)
[2020-04-02] MEDS: Insulin Lispro 100 Unit/ML 3 ML KwikPen SUBCUT SCH ×4 (08:18→21:26)
[2020-04-02] MEDS: Magnesium Oxide 400 MG Tab PO SCH ×3 (08:20→21:31)
[2020-04-02] MEDS: ROPINIROLE PO SCH ×4 (08:20→21:31)
[2020-04-02] MEDS: Carvedilol 3.125 MG Tab PO SCH ×2 (08:21→17:27)
[2020-04-02] MEDS: Losartan 50 MG Tab PO SCH (08:28)
[2020-04-02] MEDS: Gabapentin 300 MG Cap PO SCH ×3 (08:28→21:31)
[2020-04-02] MEDS: Pantoprazole 40 MG Tab.CR PO SCH (08:42)
[2020-04-02] MEDS: Fluticasone Propionate Nasal Spray 16 GM Bottle NAS SCH (10:01)
[2020-04-02] MEDS: guaiFENesin 600 MG Tab.ER PO SCH ×2 (10:03→21:31)
--- NOTE | 2020-04-02 12:15 | PCM.PN ---
- General Info Date of Service: 04/02/20 Subjective Update: There were no acute events overnight. She is stable but still requiring 15 L of supplemental oxygen. She feels a little less short of breath today. Cough continues to be productive intermittently. No chest pain. Appetite has been good. No fevers. Blood sugars have been moderately elevated with steroid use. Functional Status: Reports: Pain Controlled, Tolerating Diet - Review of Systems General: Reports: Weakness Pulmonary: Reports: Shortness of Breath, Cough - Patient Data Vitals - Most Recent: Last Vital Signs Temp 36.5 C 04/02/20 08:28 Pulse 81 04/02/20 08:28 Resp 22 H 04/02/20 08:28 BP 155/74 H 04/02/20 08:28 Pulse Ox 90 L 04/02/20 08:28 Weight - Most Recent: 86.3 kg I&O - Last 24 Hours: Intake & Output 04/01/20 04/02/20 04/02/20 22:59 06:59 14:59 Intake Total 980 340 280 Output Total 300 500 Balance 680 340 -220 Lab Results Last 24 Hours: Laboratory Results - last 24 hr 04/01/20 04/01/20 04/02/20 Range/Units 16:42 19:52 05:01 Sodium 145 (140-148) mmol/L Potassium 4.3 (3.6-5.2) mmol/L Chloride 108 (100-108) mmol/L Carbon Dioxide 32 (21-32) mmol/L Anion Gap 5.3 (5.0-14.0) mmol/L BUN 110 H* (7-18) mg/dL Creatinine 1.4 H (0.6-1.0) mg/dL Est Cr Clr Drug Dosing 28.31 mL/min Estimated GFR (MDRD) 37 L (>60) Glucose 186 H (74-106) mg/dL POC Glucose 274 H 266 H (74-106) MG/DL Calcium 7.8 L (8.5-10.1) mg/dL Total Bilirubin 0.5 (0.2-1.0) mg/dL AST 28 (15-37) U/L ALT 20 (12-78) U/L Alkaline Phosphatase 64 (46-116) U/L Total Protein 6.6 (6.4-8.2) g/dL Albumin 1.9 L (3.4-5.0) g/dL Globulin 4.7 H (2.3-3.5) g/dL Albumin/Globulin Ratio 0.4 L (1.2-2.2) 04/02/20 04/02/20 Range/Units 07:30 11:30 Sodium (140-148) mmol/L Potassium (3.6-5.2) mmol/L Chloride (100-108) mmol/L Carbon Dioxide (21-32) mmol/L Anion Gap (5.0-14.0) mmol/L BUN (7-18) mg/dL Creatinine (0.6-1.0) mg/dL Est Cr Clr Drug Dosing mL/min Estimated GFR (MDRD) (>60) Glucose (74-106) mg/dL POC Glucose 211 H 356 H (74-106) MG/DL Calcium (8.5-10.1) mg/dL Total Bilirubin (0.2-1.0) mg/dL AST (15-37) U/L ALT (12-78) U/L Alkaline Phosphatase (46-116) U/L Total Protein (6.4-8.2) g/dL Albumin (3.4-5.0) g/dL Globulin (2.3-3.5) g/dL Albumin/Globulin Ratio (1.2-2.2) Med Orders - Current: Current Medications Acetaminophen (Tylenol) 650 mg PO Q4H PRN PRN Reason: Pain (Mild 1-3)/fever Hydrocodone Bitart/Acetaminophen ([place] 325-5 Mg) 1 tab PO Q4H PRN PRN Reason: Pain (moderate 4-6) Last Admin: 04/01/20 19:30 Dose: 1 tab Documented by: Albuterol (Ventolin Hfa) 0 gm INH Q2H PRN PRN Reason: Dyspnea Albuterol/Ipratropium (Combivent Respimat) 0 gm INH QIDRT [facility] Last Admin: 04/02/20 11:34 Dose: 2 inhalation Documented by: Benzocaine/Menthol (Cepacol Sore Throat) 1 lozenge MUCMEM 5XDAY PRN PRN Reason: Sore Throat Benzonatate (Tessalon Perles) 100 mg PO TID PRN PRN Reason: Cough Carvedilol (Coreg) 3.125 mg PO BIDMEALS [facility] Last Admin: 04/02/20 08:21 Dose: 3.125 mg Documented by: Dextrose (Glutose 15) 15 gm PO ONETIME PRN PRN Reason: Hypoglycemia Dextrose/Water (Dextrose 50% In Water) 50 ml IV ONETIME PRN PRN Reason: Hypoglycemia Diclofenac Sodium (Voltaren 1% Gel) 0 gm TOP QID [facility] Last Admin: 04/02/20 10:04 Dose: 1 applic Documented by: Diphenhydramine HCl (Benadryl) 25 mg PO Q6H PRN PRN Reason: Itching Last Admin: 03/29/20 04:12 Dose: 25 mg Documented by: Enoxaparin Sodium (Lovenox) 80 mg SUBCUT Q24H [facility] Last Admin: 04/02/20 03:58 Dose: 80 mg Documented by: Fluticasone Propionate (Flonase) 0 gm YASMINE DAILY [facility] Last Admin: 04/02/20 10:01 Dose: 2 spray Documented by: Gabapentin (Neurontin) 300 mg PO TID [facility] Last Admin: 04/02/20 08:28 Dose: 300 mg Documented by: Guaifenesin (Mucinex) 600 mg PO BID [facility] Last Admin: 04/02/20 10:03 Dose: 600 mg Documented by: Guaifenesin/Dextromethorphan (Robitussin Dm) 10 ml PO Q6H PRN PRN Reason: Cough Insulin Human Lispro (Humalog) 0 unit SUBCUT QIDACANDBED [facility]; Protocol Last Admin: 04/02/20 11:30 Dose: 5 units Documented by: Losartan Potassium (Cozaar) 50 mg PO DAILY [facility] Last Admin: 04/02/20 08:28 Dose: 50 mg Documented by: Magnesium Oxide (Magnesium Oxide) 400 mg PO TID [facility] Last Admin: 04/02/20 08:20 Dose: 400 mg Documented by: Methylprednisolone Sodium Succinate (Solu-Medrol) 62.5 mg IVPUSH Q8H [facility] Last Admin: 04/02/20 11:43 Dose: 62.5 mg Documented by: Mometasone Furoate (Asmanex Hfa 200mcg) 0 gm INH BIDRT [facility] Last Admin: 04/02/20 07:31 Dose: 2 inhalation Documented by: Nystatin (Nystop) 0 gm TOP QID [facility] Last Admin: 04/02/20 10:03 Dose: 1 applic Documented by: Ondansetron HCl (Zofran) 4 mg IV Q4H PRN PRN Reason: Nausea/Vomiting Pantoprazole Sodium (Protonix) 40 mg PO ACBREAKFAST [facility] Last Admin: 04/02/20 08:42 Dose: 40 mg Documented by: Polyethylene Glycol (Miralax) 17 gm PO DAILY PRN PRN Reason: Constipation Ropinirole HCl 0.5 mg/ (Ropinirole HCl 1 mg) 1.5 mg PO BID [facility] Last Admin: 04/02/20 08:20 Dose: 1.5 mg Documented by: Sodium Chloride (Saline Flush) 10 ml FLUSH ASDIRECTED PRN PRN Reason: Keep Vein Open Discontinued Medications Hydrocodone Bitart/Acetaminophen ([place] 325-5 Mg) 1 tab PO Q6H PRN PRN Reason: Pain (moderate 4-6) Last Admin: 03/29/20 14:04 Dose: 1 tab Documented by: Albuterol (Ventolin Hfa) 2 gm INH ONETIME ONE Stop: 03/29/20 00:29 Last Admin: 03/29/20 00:59 Dose: 2 inh Documented by: Albuterol/Ipratropium (Combivent Respimat) 0 gm INH QID [facility] Last Admin: 03/29/20 05:24 Dose: 2 puff Documented by: Dexamethasone (Decadron) 6 mg IVPUSH ONETIME ONE Stop: 03/29/20 00:32 Last Admin: 03/29/20 00:59 Dose: 6 mg Documented by: Dexamethasone (Decadron) 4 mg IVPUSH Q12H [facility] Stop: 04/08/20 01:01 Dexamethasone (Decadron) 6 mg IVPUSH Q24H [facility] Stop: 04/07/20 03:16 Dexamethasone (Decadron) 6 mg IVPUSH Q24H [facility] Stop: 04/08/20 01:01 Last Admin: 03/30/20 00:28 Dose: 6 mg Documented by: Dexamethasone (Decadron) 4 mg IVPUSH Q12H [facility] Stop: 04/08/20 21:01 Last Admin: 03/31/20 08:20 Dose: 4 mg Documented by: Diclofenac Sodium (Voltaren 1% Gel) 4 gm TOP QID [facility] Last Admin: 03/29/20 05:24 Dose: Not Given Documented by: Enoxaparin Sodium (Lovenox) 80 mg SUBCUT BEDTIME [facility] Last Admin: 03/29/20 04:35 Dose: Not Given Documented by: Furosemide (Lasix) 20 mg IVPUSH ONETIME ONE Stop: 03/31/20 06:24 Last Admin: 03/31/20 08:24 Dose: 20 mg Documented by: Sodium Chloride (Normal Saline) 1,000 mls @ 100 mls/hr IV ASDIRECTED [facility] Remdesivir 200 mg/ Sodium (Chloride) 250 mls @ 250 mls/hr IV ONETIME ONE Stop: 03/29/20 02:38 Last Admin: 03/29/20 04:55 Dose: 250 mls/hr Documented by: Remdesivir 100 mg/ Sodium (Chloride) 100 mls @ 100 mls/hr IV Q24H [facility] Stop: 04/02/20 03:59 Last Admin: 04/02/20 03:54 Dose: 100 mls/hr Documented by: Lorazepam (Ativan) 0.5 mg IVPUSH ONETIME ONE Stop: 03/29/20 02:34 Last Admin: 03/29/20 02:46 Dose: 0.5 mg Documented by: Ropinirole HCl (Requip) 1.5 mg PO BID [facility] Last Admin: 03/29/20 09:43 Dose: 1.5 mg Documented by: - Exam Quality Assessment: Supplemental Oxygen General: Alert, Oriented, Cooperative, No Acute Distress Lungs: Normal Respiratory Effort, Wheezing (moderate diffuse mid to end exp ) Cardiovascular: Regular Rate, Regular Rhythm GI/Abdominal Exam: Soft, No Distention Extremities: No Pedal Edema, Other (Allevyn covering ulcers on both lower legs ). No: Increased Warmth Skin: Warm, Dry Psy/Mental Status: Alert, Normal Affect Sepsis Event Note - Evaluation Sepsis Screening Result: No Definite Risk - Focused Exam Vital Signs: Vital Signs Temp Pulse Pulse Resp BP BP BP 04/02/20 08:28 36.5 C 81 22 H 155/74 H 155/74 H 04/02/20 08:21 75 155/74 H 04/02/20 07:15 04/02/20 03:00 36.5 C 67 20 175/56 H 04/02/20 01:03 Pulse Ox 04/02/20 08:28 90 L 04/02/20 08:21 04/02/20 07:15 97 04/02/20 03:00 94 L 04/02/20 01:03 96 - Problem List Review Problem List Initiated/Reviewed/Updated: Yes - My Orders Last 24 Hours: My Active Orders 04/02/20 10:47 RT Acapella [RESPCARE] Routine 04/03/20 05:00 C-REACTIVE PROTEIN [CHEM] Timed CBC W/O DIFF,HEMOGRAM [HEME] Timed (1) COMPREHENSIVE METABOLIC PN,CMP [CHEM] Timed D-DIMER QUANTITATIVE [COAG] Timed PROCALCITONIN [CHEM] Routine - Plan Plan:: ASSESSMENT AND PLAN COVID-19 PNEUMONIA-Complicated by acute respiratory failure with hypoxia. Stable but still significantly compromised from a respiratory standpoint. Still on 15 L of oxygen. Tolerating treatment so far. -Limit IV fluids -Remdesivir x5 days (day 5) -Continue Solu-Medrol as below (day 5) -Convalescent plasma daily x3 days (3 days complete) -Therapeutic dose of Lovenox 80 mg subcu twice daily, secondary to Covid infection and history of previous deep vein thrombosis HYPOXIC AND HYPERCAPNIC RESPIRATORY FAILURE-acute on chronic. Secondary to COVID-19 and underlying COPD. Currently on 15 L of high flow nasal cannula. -Supplemental oxygen as needed -Trial of noninvasive positive pressure ventilation if she is found to have worsening respiratory failure COPD EXACERBATION-secondary to Covid infection, still wheezing but slowly improving. -Continue Solu-Medrol, transition to dexamethasone once wheezing resolves -Albuterol inhaler every 2 hours as needed -Mometasone inhaler twice daily -Combivent inhaler 4 times daily ACUTE KIDNEY INJURY-Baseline creatinine in the range of 1.1. Creatinine has remained mildly elevated and BUN is significantly elevated but stable. -Closely monitor renal function and urine output TYPE 2 DIABETES MELLITUS-currently on no active medical therapy. Blood sugars moderately elevated with steroid use. -4 times daily glucometers -Low-dose sliding scale Humalog MAINTENANCE ISSUES -DVT prophylaxis; enoxaparin -GI prophylaxis; PPI -Villeda catheter; not indicated -Nutrition; regular diet CODE STATUS-DNR/DNI DISPOSITION-anticipate discharge to home with [facility] after the hospital stay if she survives the hospital stay Andrew Mojica MD
[2020-04-03] MEDS: methylPREDNISolone Sodium Succinate 125 MG/2 ML SDV IVPUSH SCH ×3 (05:19→21:17)
[2020-04-03] MEDS: Enoxaparin 80 MG/0.8 ML Syringe SUBCUT SCH (05:19)
[2020-04-03] MEDS: Nystatin Topical Powder 15 GM Bottle TOP SCH ×4 (05:20→21:26)
[2020-04-03] MEDS: Diclofenac Sodium 1% Gel 100 GM Tube TOP SCH ×4 (05:20→21:27)
[2020-04-03] MEDS: Albuterol/Ipratropium 4 GM Inhalation Spray INH SCH ×4 (07:49→21:23)
[2020-04-03] MEDS: Mometasone Furoate HFA 200 mcg/Puff 13 GM Inhaler INH SCH ×2 (07:49→21:23)
[2020-04-03] MEDS: Fluticasone Propionate Nasal Spray 16 GM Bottle NAS SCH (08:09)
[2020-04-03] MEDS: Losartan 50 MG Tab PO SCH (08:10)
[2020-04-03] MEDS: Magnesium Oxide 400 MG Tab PO SCH ×3 (08:10→21:24)
[2020-04-03] MEDS: ROPINIROLE PO SCH ×4 (08:10→21:25)
[2020-04-03] MEDS: Gabapentin 300 MG Cap PO SCH ×3 (08:10→21:25)
[2020-04-03] MEDS: Carvedilol 3.125 MG Tab PO SCH ×2 (08:11→16:00)
[2020-04-03] MEDS: guaiFENesin 600 MG Tab.ER PO SCH ×2 (08:11→21:24)
[2020-04-03] MEDS: Insulin Lispro 100 Unit/ML 3 ML KwikPen SUBCUT SCH ×4 (08:11→21:22)
[2020-04-03] MEDS: Pantoprazole 40 MG Tab.CR PO SCH (08:11)
--- NOTE | 2020-04-03 12:35 | PCM.PN ---
- General Info Date of Service: 04/03/20 Subjective Update: No acute events overnight. Respiratory status has been stable. No impressive improvement but not any worse today. Still on 15 L. She feels less short of breath. She wants to take a shower. No abdominal pain, nausea or fevers. Blood sugars still moderately elevated. D-dimer and CRP have improved in the past 48 hours. Functional Status: Reports: Pain Controlled, Tolerating Diet - Review of Systems General: Reports: Weakness Pulmonary: Reports: Shortness of Breath, Cough - Patient Data Vitals - Most Recent: Last Vital Signs Temp 36.8 C 04/03/20 08:05 Pulse 78 04/03/20 08:11 Resp 18 04/03/20 08:05 BP 156/52 H 04/03/20 08:11 Pulse Ox 93 L 04/03/20 12:20 Weight - Most Recent: 77.4 kg I&O - Last 24 Hours: Intake & Output 04/02/20 04/03/20 04/03/20 22:59 06:59 14:59 Intake Total 360 850 Output Total 500 Balance 360 850 -500 Lab Results Last 24 Hours: Laboratory Results - last 24 hr 04/02/20 04/02/20 04/03/20 Range/Units 16:30 21:00 05:46 WBC 8.9 (4.5-11.0) K/uL RBC 4.76 (3.30-5.50) M/uL Hgb 12.9 (12.0-15.0) g/dL Hct 42.6 (36.0-48.0) % MCV 90 (80-98) fL MCH 27 (27-31) pg MCHC 30 L (32-36) % Plt Count 158 (150-400) K/uL D-Dimer, Quantitative (0.0-500.0) ng/mL Sodium (140-148) mmol/L Potassium (3.6-5.2) mmol/L Chloride (100-108) mmol/L Carbon Dioxide (21-32) mmol/L Anion Gap (5.0-14.0) mmol/L BUN (7-18) mg/dL Creatinine (0.6-1.0) mg/dL Est Cr Clr Drug Dosing mL/min Estimated GFR (MDRD) (>60) Glucose (74-106) mg/dL POC Glucose 256 H 239 H (74-106) MG/DL Calcium (8.5-10.1) mg/dL Total Bilirubin (0.2-1.0) mg/dL AST (15-37) U/L ALT (12-78) U/L Alkaline Phosphatase (46-116) U/L C-Reactive Protein (0.0-0.3) mg/dL Total Protein (6.4-8.2) g/dL Albumin (3.4-5.0) g/dL Globulin (2.3-3.5) g/dL Albumin/Globulin Ratio (1.2-2.2) Procalcitonin ng/mL 04/03/20 04/03/20 04/03/20 Range/Units 05:46 05:46 05:46 WBC (4.5-11.0) K/uL RBC (3.30-5.50) M/uL Hgb (12.0-15.0) g/dL Hct (36.0-48.0) % MCV (80-98) fL MCH (27-31) pg MCHC (32-36) % Plt Count (150-400) K/uL D-Dimer, Quantitative 587.72 H (0.0-500.0) ng/mL Sodium 145 (140-148) mmol/L Potassium 4.6 (3.6-5.2) mmol/L Chloride 110 H (100-108) mmol/L Carbon Dioxide 31 (21-32) mmol/L Anion Gap 8.6 (5.0-14.0) mmol/L BUN 105 H* (7-18) mg/dL Creatinine 1.2 H (0.6-1.0) mg/dL Est Cr Clr Drug Dosing 33.02 mL/min Estimated GFR (MDRD) 44 L (>60) Glucose 205 H (74-106) mg/dL POC Glucose (74-106) MG/DL Calcium 8.0 L (8.5-10.1) mg/dL Total Bilirubin 0.5 (0.2-1.0) mg/dL AST 27 (15-37) U/L ALT 8 L (12-78) U/L Alkaline Phosphatase 65 (46-116) U/L C-Reactive Protein 2.80 H (0.0-0.3) mg/dL Total Protein 6.3 L (6.4-8.2) g/dL Albumin 1.9 L (3.4-5.0) g/dL Globulin 4.4 H (2.3-3.5) g/dL Albumin/Globulin Ratio 0.4 L (1.2-2.2) Procalcitonin < 0.05 ng/mL 04/03/20 04/03/20 Range/Units 07:30 11:30 WBC (4.5-11.0) K/uL RBC (3.30-5.50) M/uL Hgb (12.0-15.0) g/dL Hct (36.0-48.0) % MCV (80-98) fL MCH (27-31) pg MCHC (32-36) % Plt Count (150-400) K/uL D-Dimer, Quantitative (0.0-500.0) ng/mL Sodium (140-148) mmol/L Potassium (3.6-5.2) mmol/L Chloride (100-108) mmol/L Carbon Dioxide (21-32) mmol/L Anion Gap (5.0-14.0) mmol/L BUN (7-18) mg/dL Creatinine (0.6-1.0) mg/dL Est Cr Clr Drug Dosing mL/min Estimated GFR (MDRD) (>60) Glucose (74-106) mg/dL POC Glucose 216 H 288 H (74-106) MG/DL Calcium (8.5-10.1) mg/dL Total Bilirubin (0.2-1.0) mg/dL AST (15-37) U/L ALT (12-78) U/L Alkaline Phosphatase (46-116) U/L C-Reactive Protein (0.0-0.3) mg/dL Total Protein (6.4-8.2) g/dL Albumin (3.4-5.0) g/dL Globulin (2.3-3.5) g/dL Albumin/Globulin Ratio (1.2-2.2) Procalcitonin ng/mL Med Orders - Current: Current Medications Acetaminophen (Tylenol) 650 mg PO Q4H PRN PRN Reason: Pain (Mild 1-3)/fever Hydrocodone Bitart/Acetaminophen ([place] 325-5 Mg) 1 tab PO Q4H PRN PRN Reason: Pain (moderate 4-6) Last Admin: 04/01/20 19:30 Dose: 1 tab Documented by: Albuterol (Ventolin Hfa) 0 gm INH Q2H PRN PRN Reason: Dyspnea Albuterol/Ipratropium (Combivent Respimat) 0 gm INH QIDRT [facility] Last Admin: 04/03/20 07:49 Dose: 2 inhalation Documented by: Benzocaine/Menthol (Cepacol Sore Throat) 1 lozenge MUCMEM 5XDAY PRN PRN Reason: Sore Throat Benzonatate (Tessalon Perles) 100 mg PO TID PRN PRN Reason: Cough Carvedilol (Coreg) 3.125 mg PO BIDMEALS [facility] Last Admin: 04/03/20 08:11 Dose: 3.125 mg Documented by: Dextrose (Glutose 15) 15 gm PO ONETIME PRN PRN Reason: Hypoglycemia Dextrose/Water (Dextrose 50% In Water) 50 ml IV ONETIME PRN PRN Reason: Hypoglycemia Diclofenac Sodium (Voltaren 1% Gel) 0 gm TOP QID [facility] Last Admin: 04/03/20 11:54 Dose: 1 applic Documented by: Diphenhydramine HCl (Benadryl) 25 mg PO Q6H PRN PRN Reason: Itching Last Admin: 03/29/20 04:12 Dose: 25 mg Documented by: Enoxaparin Sodium (Lovenox) 80 mg SUBCUT Q24H [facility] Last Admin: 04/03/20 05:19 Dose: 80 mg Documented by: Fluticasone Propionate (Flonase) 0 gm YASMINE DAILY [facility] Last Admin: 04/03/20 08:09 Dose: 2 spray Documented by: Gabapentin (Neurontin) 300 mg PO TID [facility] Last Admin: 04/03/20 08:10 Dose: 300 mg Documented by: Guaifenesin (Mucinex) 600 mg PO BID [facility] Last Admin: 04/03/20 08:11 Dose: 600 mg Documented by: Guaifenesin/Dextromethorphan (Robitussin Dm) 10 ml PO Q6H PRN PRN Reason: Cough Insulin Human Lispro (Humalog) 0 unit SUBCUT QIDACANDBED [facility]; Protocol Last Admin: 04/03/20 11:56 Dose: 3 units Documented by: Losartan Potassium (Cozaar) 50 mg PO DAILY [facility] Last Admin: 04/03/20 08:10 Dose: 50 mg Documented by: Magnesium Oxide (Magnesium Oxide) 400 mg PO TID [facility] Last Admin: 04/03/20 08:10 Dose: 400 mg Documented by: Methylprednisolone Sodium Succinate (Solu-Medrol) 62.5 mg IVPUSH Q8H [facility] Last Admin: 04/03/20 11:56 Dose: 62.5 mg Documented by: Mometasone Furoate (Asmanex Hfa 200mcg) 0 gm INH BIDRT [facility] Last Admin: 04/03/20 07:49 Dose: 2 inhalation Documented by: Nystatin (Nystop) 0 gm TOP QID [facility] Last Admin: 04/03/20 11:54 Dose: 1 applic Documented by: Ondansetron HCl (Zofran) 4 mg IV Q4H PRN PRN Reason: Nausea/Vomiting Pantoprazole Sodium (Protonix) 40 mg PO ACBREAKFAST [facility] Last Admin: 04/03/20 08:11 Dose: 40 mg Documented by: Polyethylene Glycol (Miralax) 17 gm PO DAILY PRN PRN Reason: Constipation Ropinirole HCl 0.5 mg/ (Ropinirole HCl 1 mg) 1.5 mg PO BID [facility] Last Admin: 04/03/20 08:10 Dose: 1.5 mg Documented by: Sodium Chloride (Saline Flush) 10 ml FLUSH ASDIRECTED PRN PRN Reason: Keep Vein Open Discontinued Medications Hydrocodone Bitart/Acetaminophen ([place] 325-5 Mg) 1 tab PO Q6H PRN PRN Reason: Pain (moderate 4-6) Last Admin: 03/29/20 14:04 Dose: 1 tab Documented by: Albuterol (Ventolin Hfa) 2 gm INH ONETIME ONE Stop: 03/29/20 00:29 Last Admin: 03/29/20 00:59 Dose: 2 inh Documented by: Albuterol/Ipratropium (Combivent Respimat) 0 gm INH QID [facility] Last Admin: 03/29/20 05:24 Dose: 2 puff Documented by: Dexamethasone (Decadron) 6 mg IVPUSH ONETIME ONE Stop: 03/29/20 00:32 Last Admin: 03/29/20 00:59 Dose: 6 mg Documented by: Dexamethasone (Decadron) 4 mg IVPUSH Q12H [facility] Stop: 04/08/20 01:01 Dexamethasone (Decadron) 6 mg IVPUSH Q24H [facility] Stop: 04/07/20 03:16 Dexamethasone (Decadron) 6 mg IVPUSH Q24H [facility] Stop: 04/08/20 01:01 Last Admin: 03/30/20 00:28 Dose: 6 mg Documented by: Dexamethasone (Decadron) 4 mg IVPUSH Q12H [facility] Stop: 04/08/20 21:01 Last Admin: 03/31/20 08:20 Dose: 4 mg Documented by: Diclofenac Sodium (Voltaren 1% Gel) 4 gm TOP QID [facility] Last Admin: 03/29/20 05:24 Dose: Not Given Documented by: Enoxaparin Sodium (Lovenox) 80 mg SUBCUT BEDTIME [facility] Last Admin: 03/29/20 04:35 Dose: Not Given Documented by: Furosemide (Lasix) 20 mg IVPUSH ONETIME ONE Stop: 03/31/20 06:24 Last Admin: 03/31/20 08:24 Dose: 20 mg Documented by: Sodium Chloride (Normal Saline) 1,000 mls @ 100 mls/hr IV ASDIRECTED [facility] Remdesivir 200 mg/ Sodium (Chloride) 250 mls @ 250 mls/hr IV ONETIME ONE Stop: 03/29/20 02:38 Last Admin: 03/29/20 04:55 Dose: 250 mls/hr Documented by: Remdesivir 100 mg/ Sodium (Chloride) 100 mls @ 100 mls/hr IV Q24H [facility] Stop: 04/02/20 03:59 Last Admin: 04/02/20 03:54 Dose: 100 mls/hr Documented by: Lorazepam (Ativan) 0.5 mg IVPUSH ONETIME ONE Stop: 03/29/20 02:34 Last Admin: 03/29/20 02:46 Dose: 0.5 mg Documented by: Ropinirole HCl (Requip) 1.5 mg PO BID [facility] Last Admin: 03/29/20 09:43 Dose: 1.5 mg Documented by: - Exam Quality Assessment: Supplemental Oxygen General: Alert, Oriented, Cooperative, No Acute Distress Lungs: Normal Respiratory Effort, Crackles (mild diffuse), Wheezing (moderate diffuse) Cardiovascular: Regular Rate, Regular Rhythm GI/Abdominal Exam: Soft, No Distention Extremities: No Pedal Edema. No: Increased Warmth Skin: Warm, Dry Psy/Mental Status: Alert, Normal Affect Sepsis Event Note - Evaluation Sepsis Screening Result: No Definite Risk - Focused Exam Vital Signs: Vital Signs Temp Pulse Pulse Resp BP BP Pulse Ox 04/03/20 12:20 93 L 04/03/20 08:11 78 156/52 H 04/03/20 08:10 156/52 H 04/03/20 08:05 36.8 C 74 18 156/52 H 93 L 04/03/20 07:06 94 L 04/03/20 03:40 36.7 C 70 16 180/61 H 90 L 04/03/20 01:00 92 L - Problem List Review Problem List Initiated/Reviewed/Updated: Yes - Plan Plan:: ASSESSMENT AND PLAN COVID-19 PNEUMONIA-Complicated by acute respiratory failure with hypoxia. Stable but still significantly compromised. Still on 15 L of supplemental oxygen. Still wheezing. About the same as yesterday. -Limit IV fluids -Remdesivir complete -Continue Solu-Medrol as below (day 6) -Convalescent plasma daily x3 days complete -Therapeutic dose of Lovenox 80 mg subcu daily, secondary to Covid infection and history of previous deep vein thrombosis HYPOXIC AND HYPERCAPNIC RESPIRATORY FAILURE-acute on chronic. Secondary to COVID-19 and underlying COPD. Currently on 15 L of high flow nasal cannula but stable. -Supplemental oxygen as needed -Trial of noninvasive positive pressure ventilation if she is found to have wors ening respiratory failure COPD EXACERBATION-secondary to Covid infection, still wheezing and about the same as yesterday. -Continue Solu-Medrol, transition to dexamethasone once wheezing resolves -Albuterol inhaler every 2 hours as needed -Mometasone inhaler twice daily -Combivent inhaler 4 times daily ACUTE KIDNEY INJURY-Baseline creatinine in the range of 1.1. Creatinine is nearly back to normal but BUN is still elevated. -Closely monitor renal function and urine output TYPE 2 DIABETES MELLITUS-currently on no active medical therapy. Blood sugars moderately elevated with steroid use. -4 times daily glucometers -Low-dose sliding scale Humalog MAINTENANCE ISSUES -DVT prophylaxis; enoxaparin -GI prophylaxis; PPI -Villeda catheter; not indicated -Nutrition; regular diet CODE STATUS-DNR/DNI DISPOSITION-anticipate discharge to home with [facility] after the hospital stay if she survives the hospital stay Andrew Mojica MD
[2020-04-03] MEDS ORDERED: 50% Dextrose in Water 50 ML Syringe IVPUSH PRN (18:22)
[2020-04-03] MEDS ORDERED: Glucagon,Human Recombinant 1 MG Vial IM PRN (18:22)
[2020-04-03] MEDS ORDERED: Insulin Lispro 100 Unit/ML 3 ML KwikPen SUBCUT ONE (18:22)
[2020-04-04] MEDS: Enoxaparin 80 MG/0.8 ML Syringe SUBCUT SCH (03:55)
[2020-04-04] MEDS: methylPREDNISolone Sodium Succinate 125 MG/2 ML SDV IVPUSH SCH ×2 (03:56→11:49)
[2020-04-04] MEDS: Diclofenac Sodium 1% Gel 100 GM Tube TOP SCH ×4 (06:05→21:34)
[2020-04-04] MEDS: Nystatin Topical Powder 15 GM Bottle TOP SCH ×4 (06:05→21:33)
[2020-04-04] MEDS: Albuterol/Ipratropium 4 GM Inhalation Spray INH SCH ×4 (07:55→21:30)
[2020-04-04] MEDS: Mometasone Furoate HFA 200 mcg/Puff 13 GM Inhaler INH SCH ×2 (07:55→21:27)
[2020-04-04] MEDS: Pantoprazole 40 MG Tab.CR PO SCH (07:57)
[2020-04-04] MEDS: Carvedilol 3.125 MG Tab PO SCH ×2 (07:57→17:29)
[2020-04-04] MEDS: Magnesium Oxide 400 MG Tab PO SCH ×3 (08:00→21:32)
[2020-04-04] MEDS: guaiFENesin 600 MG Tab.ER PO SCH ×2 (08:00→21:33)
[2020-04-04] MEDS: ROPINIROLE PO SCH ×4 (08:00→17:30)
[2020-04-04] MEDS: Gabapentin 300 MG Cap PO SCH ×3 (08:00→21:33)
[2020-04-04] MEDS: Fluticasone Propionate Nasal Spray 16 GM Bottle NAS SCH (08:00)
[2020-04-04] MEDS ORDERED: Furosemide 40 MG/4 ML VIAL IVPUSH ONE (08:01)
[2020-04-04] MEDS: Losartan 50 MG Tab PO SCH (08:01)
[2020-04-04] MEDS: Insulin Lispro 100 Unit/ML 3 ML KwikPen SUBCUT SCH ×4 (08:03→21:25)
--- NOTE | 2020-04-04 12:14 | PCM.PN ---
- General Info Date of Service: 04/04/20 Subjective Update: No acute events overnight. Oxygenation is stable with 15 L of oxygen. She feels less short of breath. Coughing less. Cough continues to be productive. Strength and energy are improving. Appetite has been good. Blood sugars better with changes in the sliding scale coverage. No abdominal pain or nausea. Tolerated a shower this morning. Functional Status: Reports: Pain Controlled, Tolerating Diet - Review of Systems General: Reports: Weakness Pulmonary: Reports: Shortness of Breath, Cough - Patient Data Vitals - Most Recent: Last Vital Signs Temp 98.1 C H 04/04/20 09:59 Pulse 71 04/04/20 09:59 Resp 18 04/04/20 09:59 BP 131/63 04/04/20 09:59 Pulse Ox 91 L 04/04/20 09:59 Weight - Most Recent: 77.3 kg I&O - Last 24 Hours: Intake & Output 04/03/20 04/04/20 04/04/20 22:59 06:59 14:59 Intake Total 950 Output Total 400 500 Balance 550 -500 Lab Results Last 24 Hours: Laboratory Results - last 24 hr 04/03/20 04/03/20 04/03/20 Range/Units 17:43 21:00 23:36 POC Glucose 413 H 432 H 253 H (74-106) MG/DL 04/04/20 04/04/20 Range/Units 07:30 11:30 POC Glucose 211 H 307 H (74-106) MG/DL Med Orders - Current: Current Medications Acetaminophen (Tylenol) 650 mg PO Q4H PRN PRN Reason: Pain (Mild 1-3)/fever Hydrocodone Bitart/Acetaminophen ([place] 325-5 Mg) 1 tab PO Q4H PRN PRN Reason: Pain (moderate 4-6) Last Admin: 04/01/20 19:30 Dose: 1 tab Documented by: Albuterol (Ventolin Hfa) 0 gm INH Q2H PRN PRN Reason: Dyspnea Albuterol/Ipratropium (Combivent Respimat) 0 gm INH QIDRT [facility] Last Admin: 04/04/20 11:49 Dose: 2 inhalation Documented by: Benzocaine/Menthol (Cepacol Sore Throat) 1 lozenge MUCMEM 5XDAY PRN PRN Reason: Sore Throat Last Admin: 04/03/20 17:53 Dose: 1 janae Documented by: Benzonatate (Tessalon Perles) 100 mg PO TID PRN PRN Reason: Cough Carvedilol (Coreg) 3.125 mg PO BIDMEALS [facility] Last Admin: 04/04/20 07:57 Dose: 3.125 mg Documented by: Dextrose (Glutose 15) 15 gm PO ONETIME PRN PRN Reason: Hypoglycemia Dextrose/Water (Dextrose 50% In Water) 50 ml IVPUSH ASDIRECTED PRN PRN Reason: Hypoglycemia Diclofenac Sodium (Voltaren 1% Gel) 0 gm TOP QID [facility] Last Admin: 04/04/20 11:48 Dose: 1 applic Documented by: Diphenhydramine HCl (Benadryl) 25 mg PO Q6H PRN PRN Reason: Itching Last Admin: 03/29/20 04:12 Dose: 25 mg Documented by: Enoxaparin Sodium (Lovenox) 80 mg SUBCUT Q24H [facility] Last Admin: 04/04/20 03:55 Dose: 80 mg Documented by: Fluticasone Propionate (Flonase) 0 gm YASMINE DAILY [facility] Last Admin: 04/04/20 08:00 Dose: 2 spray Documented by: Gabapentin (Neurontin) 300 mg PO TID [facility] Last Admin: 04/04/20 08:00 Dose: 300 mg Documented by: Glucagon (Glucagen) 1 mg IM ASDIRECTED PRN PRN Reason: Hypoglycemia Guaifenesin (Mucinex) 600 mg PO BID [facility] Last Admin: 04/04/20 08:00 Dose: 600 mg Documented by: Guaifenesin/Dextromethorphan (Robitussin Dm) 10 ml PO Q6H PRN PRN Reason: Cough Insulin Human Lispro (Humalog) 0 unit SUBCUT QIDACANDBED [facility]; Protocol Last Admin: 04/04/20 11:54 Dose: 8 units Documented by: Losartan Potassium (Cozaar) 50 mg PO DAILY [facility] Last Admin: 04/04/20 08:01 Dose: 50 mg Documented by: Magnesium Oxide (Magnesium Oxide) 400 mg PO TID [facility] Last Admin: 04/04/20 08:00 Dose: 400 mg Documented by: Methylprednisolone Sodium Succinate (Solu-Medrol) 62.5 mg IVPUSH Q8H [facility] Last Admin: 04/04/20 11:49 Dose: 62.5 mg Documented by: Mometasone Furoate (Asmanex Hfa 200mcg) 0 gm INH BIDRT [facility] Last Admin: 04/04/20 07:55 Dose: 2 inhalation Documented by: Nystatin (Nystop) 0 gm TOP QID [facility] Last Admin: 04/04/20 11:48 Dose: 1 applic Documented by: Ondansetron HCl (Zofran) 4 mg IV Q4H PRN PRN Reason: Nausea/Vomiting Pantoprazole Sodium (Protonix) 40 mg PO ACBREAKFAST [facility] Last Admin: 04/04/20 07:57 Dose: 40 mg Documented by: Polyethylene Glycol (Miralax) 17 gm PO DAILY PRN PRN Reason: Constipation Ropinirole HCl 0.5 mg/ (Ropinirole HCl 1 mg) 1.5 mg PO BID@0900,1800 [facility] Sodium Chloride (Saline Flush) 10 ml FLUSH ASDIRECTED PRN PRN Reason: Keep Vein Open Discontinued Medications Hydrocodone Bitart/Acetaminophen ([place] 325-5 Mg) 1 tab PO Q6H PRN PRN Reason: Pain (moderate 4-6) Last Admin: 03/29/20 14:04 Dose: 1 tab Documented by: Albuterol (Ventolin Hfa) 2 gm INH ONETIME ONE Stop: 03/29/20 00:29 Last Admin: 03/29/20 00:59 Dose: 2 inh Documented by: Albuterol/Ipratropium (Combivent Respimat) 0 gm INH QID [facility] Last Admin: 03/29/20 05:24 Dose: 2 puff Documented by: Dexamethasone (Decadron) 6 mg IVPUSH ONETIME ONE Stop: 03/29/20 00:32 Last Admin: 03/29/20 00:59 Dose: 6 mg Documented by: Dexamethasone (Decadron) 4 mg IVPUSH Q12H [facility] Stop: 04/08/20 01:01 Dexamethasone (Decadron) 6 mg IVPUSH Q24H [facility] Stop: 04/07/20 03:16 Dexamethasone (Decadron) 6 mg IVPUSH Q24H [facility] Stop: 04/08/20 01:01 Last Admin: 03/30/20 00:28 Dose: 6 mg Documented by: Dexamethasone (Decadron) 4 mg IVPUSH Q12H [facility] Stop: 04/08/20 21:01 Last Admin: 03/31/20 08:20 Dose: 4 mg Documented by: Diclofenac Sodium (Voltaren 1% Gel) 4 gm TOP QID [facility] Last Admin: 03/29/20 05:24 Dose: Not Given Documented by: Enoxaparin Sodium (Lovenox) 80 mg SUBCUT BEDTIME [facility] Last Admin: 03/29/20 04:35 Dose: Not Given Documented by: Furosemide (Lasix) 20 mg IVPUSH ONETIME ONE Stop: 03/31/20 06:24 Last Admin: 03/31/20 08:24 Dose: 20 mg Documented by: Furosemide (Lasix) 40 mg IVPUSH ONETIME ONE Stop: 04/04/20 08:02 Last Admin: 04/04/20 08:35 Dose: 40 mg Documented by: Sodium Chloride (Normal Saline) 1,000 mls @ 100 mls/hr IV ASDIRECTED [facility] Remdesivir 200 mg/ Sodium (Chloride) 250 mls @ 250 mls/hr IV ONETIME ONE Stop: 03/29/20 02:38 Last Admin: 03/29/20 04:55 Dose: 250 mls/hr Documented by: Remdesivir 100 mg/ Sodium (Chloride) 100 mls @ 100 mls/hr IV Q24H [facility] Stop: 04/02/20 03:59 Last Admin: 04/02/20 03:54 Dose: 100 mls/hr Documented by: Insulin Human Lispro (Humalog) 0 unit SUBCUT QIDACANDBED [facility]; Protocol Last Admin: 04/03/20 19:47 Dose: Not Given Documented by: Insulin Human Lispro (Humalog) 10 unit SUBCUT ONETIME ONE Stop: 04/03/20 18:23 Last Admin: 04/03/20 18:27 Dose: 10 unit Documented by: Lorazepam (Ativan) 0.5 mg IVPUSH ONETIME ONE Stop: 03/29/20 02:34 Last Admin: 03/29/20 02:46 Dose: 0.5 mg Documented by: Ropinirole HCl (Requip) 1.5 mg PO BID [facility] Last Admin: 03/29/20 09:43 Dose: 1.5 mg Documented by: Ropinirole HCl 0.5 mg/ (Ropinirole HCl 1 mg) 1.5 mg PO BID [facility] Stop: 04/04/20 10:00 Last Admin: 04/04/20 08:00 Dose: 1.5 mg Documented by: - Exam Quality Assessment: Supplemental Oxygen General: Alert, Oriented, Cooperative, No Acute Distress Lungs: Normal Respiratory Effort, Crackles (mild lower lungs). No: Wheezing Cardiovascular: Regular Rate, Regular Rhythm GI/Abdominal Exam: Soft, No Distention Extremities: No Pedal Edema. No: Increased Warmth Skin: Warm, Dry Psy/Mental Status: Alert, Normal Affect Sepsis Event Note - Evaluation Sepsis Screening Result: No Definite Risk - Focused Exam Vital Signs: Vital Signs Temp Temp Pulse Pulse Resp BP BP 04/04/20 09:59 98.1 C H 71 18 131/63 04/04/20 08:01 174/69 H 04/04/20 07:57 78 174/69 H 04/04/20 07:54 97.2 C H 74 20 04/04/20 07:00 04/04/20 03:42 36.8 C 73 20 156/50 H BP Pulse Ox 04/04/20 09:59 91 L 04/04/20 08:01 04/04/20 07:57 04/04/20 07:54 174/69 H 93 L 04/04/20 07:00 96 04/04/20 03:42 95 - Problem List Review Problem List Initiated/Reviewed/Updated: Yes - My Orders Last 24 Hours: My Active Orders 04/03/20 18:21 Communication Order [RC] PRN Communication Order [RC] PRN Diabetes Education [RC] Click to Edit 04/03/20 18:22 Dextrose 50% in Water 50 ml IVPUSH ASDIRECTED PRN Glucagon,Human Recombinant [GlucaGen] 1 mg IM ASDIRECTED PRN 04/03/20 20:00 Insulin Lispro [HumaLOG] See Protocol SUBCUT QIDACANDBED 04/04/20 16:30 GLUCOSE POC LAB TO COLLECT JPM [POC] QIDACANDBED 04/04/20 18:00 Ropinirole [Requip] 1.5 mg PO BID@0900,1800 04/04/20 21:00 GLUCOSE POC LAB TO COLLECT JPM [POC] QIDACANDBED dexAMETHasone 4 mg PO BID 04/05/20 05:00 BASIC METABOLIC PANEL,BMP [CHEM] Timed CRP [C-REACTIVE PROTEIN] [CHEM] Timed D-DIMER QUANTITATIVE [COAG] Timed 04/05/20 07:30 GLUCOSE POC LAB TO COLLECT JPM [POC] QIDACANDBED 04/05/20 11:30 GLUCOSE POC LAB TO COLLECT JPM [POC] QIDACANDBED 04/05/20 16:30 GLUCOSE POC LAB TO COLLECT JPM [POC] QIDACANDBED 04/05/20 21:00 GLUCOSE POC LAB TO COLLECT JPM [POC] QIDACANDBED 04/06/20 07:30 GLUCOSE POC LAB TO COLLECT JPM [POC] QIDACANDBED 04/06/20 11:30 GLUCOSE POC LAB TO COLLECT JPM [POC] QIDACANDBED 04/06/20 16:30 GLUCOSE POC LAB TO COLLECT JPM [POC] QIDACANDBED - Plan Plan:: ASSESSMENT AND PLAN COVID-19 PNEUMONIA-Complicated by acute respiratory failure with hypoxia. Stable but still significantly compromised. Still on 15 L of supplemental oxygen. Wheezing has resolved. Symptomatically better. -Limit IV fluids -Remdesivir complete -Continue steroids below (day 7) -Convalescent plasma daily x3 days complete -Therapeutic dose of Lovenox 80 mg subcu daily, secondary to Covid infection and history of previous deep vein thrombosis HYPOXIC AND HYPERCAPNIC RESPIRATORY FAILURE-acute on chronic. Secondary to COVID-19 and underlying COPD. Currently on 15 L of high flow nasal cannula but stable. -Supplemental oxygen as needed -Trial of noninvasive positive pressure ventilation if she is found to have worsening respiratory failure COPD EXACERBATION-secondary to Covid infection. Wheezing has resolved and shortness of breath is better. -transition to dexamethasone 4 mg twice daily -Albuterol inhaler every 2 hours as needed -Mometasone inhaler twice daily -Combivent inhaler 4 times daily ACUTE KIDNEY INJURY-Baseline creatinine in the range of 1.1. Creatinine is nearly back to normal but BUN is still elevated. -Recheck labs in the morning -Closely monitor renal function and urine output TYPE 2 DIABETES MELLITUS-currently on no active medical therapy. Blood sugars moderately elevated with steroid use but improving with supplemental insulin. -4 times daily glucometers -Medium-dose sliding scale Humalog MAINTENANCE ISSUES -DVT prophylaxis; enoxaparin -GI prophylaxis; PPI -Villeda catheter; not indicated -Nutrition; regular diet CODE STATUS-DNR/DNI DISPOSITION-anticipate discharge to home with [facility] after the hospital stay if she survives the hospital stay Andrew Mojica MD
[2020-04-04] MEDS ORDERED: ROPINIROLE PO SCH ×2 (20:00)
[2020-04-04] MEDS: Dexamethasone 2 MG Tab PO SCH (21:32)
[2020-04-05] MEDS: Enoxaparin 80 MG/0.8 ML Syringe SUBCUT SCH (04:53)
[2020-04-05] MEDS: Diclofenac Sodium 1% Gel 100 GM Tube TOP SCH ×4 (06:23→21:22)
[2020-04-05] MEDS: Nystatin Topical Powder 15 GM Bottle TOP SCH ×4 (06:23→21:22)
[2020-04-05] MEDS: Albuterol/Ipratropium 4 GM Inhalation Spray INH SCH ×4 (07:51→21:22)
[2020-04-05] MEDS: Mometasone Furoate HFA 200 mcg/Puff 13 GM Inhaler INH SCH ×2 (07:51→21:22)
[2020-04-05] MEDS: Pantoprazole 40 MG Tab.CR PO SCH (08:32)
[2020-04-05] MEDS: ROPINIROLE PO SCH ×4 (08:33→17:21)
[2020-04-05] MEDS: Magnesium Oxide 400 MG Tab PO SCH ×3 (08:33→21:22)
[2020-04-05] MEDS: guaiFENesin 600 MG Tab.ER PO SCH ×2 (08:33→21:22)
[2020-04-05] MEDS: Gabapentin 300 MG Cap PO SCH ×3 (08:33→21:22)
[2020-04-05] MEDS: Fluticasone Propionate Nasal Spray 16 GM Bottle NAS SCH (08:34)
[2020-04-05] MEDS: Carvedilol 3.125 MG Tab PO SCH ×2 (08:35→16:13)
[2020-04-05] MEDS: Losartan 50 MG Tab PO SCH (08:35)
[2020-04-05] MEDS: Insulin Lispro 100 Unit/ML 3 ML KwikPen SUBCUT SCH ×4 (08:37→21:21)
[2020-04-05] MEDS: Dexamethasone 2 MG Tab PO SCH ×2 (10:08→21:22)
--- NOTE | 2020-04-05 14:50 | PCM.PN ---
- General Info Date of Service: 04/05/20 Subjective Update: Ms. Obrien has been stable over the last 24 hours, no significant worsening respiratory status but also no appreciable improvement. Vital signs have remained good and she has been afebrile. Functional Status: Reports: Tolerating Diet, Urinating - Review of Systems General: Reports: Weakness, Fatigue. Denies: Fever, Chills Pulmonary: Reports: Shortness of Breath. Denies: Pleuritic Chest Pain, Cough, Sputum, Hemoptysis, Wheezing Cardiovascular: Reports: Dyspnea on Exertion. Denies: Chest Pain, Palpitations, Orthopnea, PND, Edema Gastrointestinal: Reports: No Symptoms - Patient Data Vitals - Most Recent: Last Vital Signs Temp 96.7 F L 04/05/20 11:28 Pulse 88 04/05/20 11:28 Resp 18 04/05/20 11:28 BP 124/84 04/05/20 11:28 Pulse Ox 94 L 04/05/20 12:19 Weight - Most Recent: 187 lb 6.287 oz I&O - Last 24 Hours: Intake & Output 04/04/20 04/05/20 04/05/20 22:59 06:59 14:59 Intake Total 500 Output Total 300 350 Balance 200 -350 Lab Results Last 24 Hours: Laboratory Results - last 24 hr 04/04/20 04/04/20 04/05/20 Range/Units 16:30 21:00 04:30 D-Dimer, Quantitative 572.32 H (0.0-500.0) ng/mL Sodium (140-148) mmol/L Potassium (3.6-5.2) mmol/L Chloride (100-108) mmol/L Carbon Dioxide (21-32) mmol/L Anion Gap (5.0-14.0) mmol/L BUN (7-18) mg/dL Creatinine (0.6-1.0) mg/dL Est Cr Clr Drug Dosing mL/min Estimated GFR (MDRD) (>60) Glucose (74-106) mg/dL POC Glucose 256 H 260 H (74-106) MG/DL Calcium (8.5-10.1) mg/dL C-Reactive Protein (0.0-0.3) mg/dL 04/05/20 04/05/20 04/05/20 Range/Units 04:30 07:30 11:30 D-Dimer, Quantitative (0.0-500.0) ng/mL Sodium 149 H (140-148) mmol/L Potassium 4.9 (3.6-5.2) mmol/L Chloride 110 H (100-108) mmol/L Carbon Dioxide 31 (21-32) mmol/L Anion Gap 12.9 (5.0-14.0) mmol/L BUN 76 H* (7-18) mg/dL Creatinine 1.0 (0.6-1.0) mg/dL Est Cr Clr Drug Dosing 39.63 mL/min Estimated GFR (MDRD) 54 L (>60) Glucose 199 H (74-106) mg/dL POC Glucose 214 H 315 H (74-106) MG/DL Calcium 8.5 (8.5-10.1) mg/dL C-Reactive Protein 1.55 H (0.0-0.3) mg/dL Med Orders - Current: Current Medications Acetaminophen (Tylenol) 650 mg PO Q4H PRN PRN Reason: Pain (Mild 1-3)/fever Hydrocodone Bitart/Acetaminophen ([place] 325-5 Mg) 1 tab PO Q4H PRN PRN Reason: Pain (moderate 4-6) Last Admin: 04/01/20 19:30 Dose: 1 tab Documented by: Albuterol (Ventolin Hfa) 0 gm INH Q2H PRN PRN Reason: Dyspnea Albuterol/Ipratropium (Combivent Respimat) 0 gm INH QIDRT [facility] Last Admin: 04/05/20 10:08 Dose: 2 inhalation Documented by: Benzocaine/Menthol (Cepacol Sore Throat) 1 lozenge MUCMEM 5XDAY PRN PRN Reason: Sore Throat Last Admin: 04/03/20 17:53 Dose: 1 janae Documented by: Benzonatate (Tessalon Perles) 100 mg PO TID PRN PRN Reason: Cough Carvedilol (Coreg) 3.125 mg PO BIDMEALS [facility] Last Admin: 04/05/20 08:35 Dose: 3.125 mg Documented by: Dexamethasone (Dexamethasone) 4 mg PO BID [facility] Last Admin: 04/05/20 10:08 Dose: 4 mg Documented by: Dextrose (Glutose 15) 15 gm PO ONETIME PRN PRN Reason: Hypoglycemia Dextrose/Water (Dextrose 50% In Water) 50 ml IVPUSH ASDIRECTED PRN PRN Reason: Hypoglycemia Diclofenac Sodium (Voltaren 1% Gel) 0 gm TOP QID [facility] Last Admin: 04/05/20 10:09 Dose: 1 applic Documented by: Diphenhydramine HCl (Benadryl) 25 mg PO Q6H PRN PRN Reason: Itching Last Admin: 03/29/20 04:12 Dose: 25 mg Documented by: Enoxaparin Sodium (Lovenox) 80 mg SUBCUT Q24H [facility] Last Admin: 04/05/20 04:53 Dose: 80 mg Documented by: Fluticasone Propionate (Flonase) 0 gm YASMINE DAILY [facility] Last Admin: 04/05/20 08:34 Dose: 2 spray Documented by: Gabapentin (Neurontin) 300 mg PO TID [facility] Last Admin: 04/05/20 08:33 Dose: 300 mg Documented by: Glucagon (Glucagen) 1 mg IM ASDIRECTED PRN PRN Reason: Hypoglycemia Guaifenesin (Mucinex) 600 mg PO BID [facility] Last Admin: 04/05/20 08:33 Dose: 600 mg Documented by: Guaifenesin/Dextromethorphan (Robitussin Dm) 10 ml PO Q6H PRN PRN Reason: Cough Insulin Human Lispro (Humalog) 0 unit SUBCUT QIDACANDBED [facility]; Protocol Last Admin: 04/05/20 12:21 Dose: 8 units Documented by: Losartan Potassium (Cozaar) 50 mg PO DAILY [facility] Last Admin: 04/05/20 08:35 Dose: 50 mg Documented by: Magnesium Oxide (Magnesium Oxide) 400 mg PO TID [facility] Last Admin: 04/05/20 08:33 Dose: 400 mg Documented by: Mometasone Furoate (Asmanex Hfa 200mcg) 0 gm INH BIDRT [facility] Last Admin: 04/05/20 07:51 Dose: 2 inhalation Documented by: Nystatin (Nystop) 0 gm TOP QID [facility] Last Admin: 04/05/20 10:08 Dose: 1 applic Documented by: Ondansetron HCl (Zofran) 4 mg IV Q4H PRN PRN Reason: Nausea/Vomiting Pantoprazole Sodium (Protonix) 40 mg PO ACBREAKFAST [facility] Last Admin: 04/05/20 08:32 Dose: 40 mg Documented by: Polyethylene Glycol (Miralax) 17 gm PO DAILY PRN PRN Reason: Constipation Ropinirole HCl 0.5 mg/ (Ropinirole HCl 1 mg) 1.5 mg PO BID@0900,1800 [facility] Last Admin: 04/05/20 08:33 Dose: 1.5 mg Documented by: Sodium Chloride (Saline Flush) 10 ml FLUSH ASDIRECTED PRN PRN Reason: Keep Vein Open Discontinued Medications Hydrocodone Bitart/Acetaminophen ([place] 325-5 Mg) 1 tab PO Q6H PRN PRN Reason: Pain (moderate 4-6) Last Admin: 03/29/20 14:04 Dose: 1 tab Documented by: Albuterol (Ventolin Hfa) 2 gm INH ONETIME ONE Stop: 03/29/20 00:29 Last Admin: 03/29/20 00:59 Dose: 2 inh Documented by: Albuterol/Ipratropium (Combivent Respimat) 0 gm INH QID [facility] Last Admin: 03/29/20 05:24 Dose: 2 puff Documented by: Dexamethasone (Decadron) 6 mg IVPUSH ONETIME ONE Stop: 03/29/20 00:32 Last Admin: 03/29/20 00:59 Dose: 6 mg Documented by: Dexamethasone (Decadron) 4 mg IVPUSH Q12H [facility] Stop: 04/08/20 01:01 Dexamethasone (Decadron) 6 mg IVPUSH Q24H [facility] Stop: 04/07/20 03:16 Dexamethasone (Decadron) 6 mg IVPUSH Q24H [facility] Stop: 04/08/20 01:01 Last Admin: 03/30/20 00:28 Dose: 6 mg Documented by: Dexamethasone (Decadron) 4 mg IVPUSH Q12H [facility] Stop: 04/08/20 21:01 Last Admin: 03/31/20 08:20 Dose: 4 mg Documented by: Diclofenac Sodium (Voltaren 1% Gel) 4 gm TOP QID [facility] Last Admin: 03/29/20 05:24 Dose: Not Given Documented by: Enoxaparin Sodium (Lovenox) 80 mg SUBCUT BEDTIME [facility] Last Admin: 03/29/20 04:35 Dose: Not Given Documented by: Furosemide (Lasix) 20 mg IVPUSH ONETIME ONE Stop: 03/31/20 06:24 Last Admin: 03/31/20 08:24 Dose: 20 mg Documented by: Furosemide (Lasix) 40 mg IVPUSH ONETIME ONE Stop: 04/04/20 08:02 Last Admin: 04/04/20 08:35 Dose: 40 mg Documented by: Sodium Chloride (Normal Saline) 1,000 mls @ 100 mls/hr IV ASDIRECTED [facility] Remdesivir 200 mg/ Sodium (Chloride) 250 mls @ 250 mls/hr IV ONETIME ONE Stop: 03/29/20 02:38 Last Admin: 03/29/20 04:55 Dose: 250 mls/hr Documented by: Remdesivir 100 mg/ Sodium (Chloride) 100 mls @ 100 mls/hr IV Q24H [facility] Stop: 04/02/20 03:59 Last Admin: 04/02/20 03:54 Dose: 100 mls/hr Documented by: Insulin Human Lispro (Humalog) 0 unit SUBCUT QIDACANDBED [facility]; Protocol Last Admin: 04/03/20 19:47 Dose: Not Given Documented by: Insulin Human Lispro (Humalog) 10 unit SUBCUT ONETIME ONE Stop: 04/03/20 18:23 Last Admin: 04/03/20 18:27 Dose: 10 unit Documented by: Lorazepam (Ativan) 0.5 mg IVPUSH ONETIME ONE Stop: 03/29/20 02:34 Last Admin: 03/29/20 02:46 Dose: 0.5 mg Documented by: Methylprednisolone Sodium Succinate (Solu-Medrol) 62.5 mg IVPUSH Q8H [facility] Last Admin: 04/04/20 11:49 Dose: 62.5 mg Documented by: Ropinirole HCl (Requip) 1.5 mg PO BID [facility] Last Admin: 03/29/20 09:43 Dose: 1.5 mg Documented by: Ropinirole HCl 0.5 mg/ (Ropinirole HCl 1 mg) 1.5 mg PO BID [facility] Stop: 04/04/20 10:00 Last Admin: 04/04/20 08:00 Dose: 1.5 mg Documented by: - Exam Quality Assessment: Supplemental Oxygen, Skin Breakdown General: Alert, Oriented, Cooperative, Mild Distress Lungs: Clear to Auscultation, Normal Respiratory Effort, Decreased Breath Sounds. No: Rales, Rhonchi, Wheezing Cardiovascular: Regular Rate, Regular Rhythm, No Murmurs GI/Abdominal Exam: Soft, Non-Tender, No Organomegaly, No Distention Extremities: Non-Tender, No Pedal Edema Sepsis Event Note - Evaluation Sepsis Screening Result: No Definite Risk - Focused Exam Vital Signs: Vital Signs Temp Pulse Pulse Resp BP BP Pulse Ox 04/05/20 12:19 94 L 04/05/20 11:28 96.7 F L 88 18 124/84 93 L 04/05/20 08:35 82 186/63 H 04/05/20 08:00 96.8 F L 72 18 183/66 H 93 L 04/05/20 07:00 93 L 04/05/20 04:00 96.8 F L 70 18 175/74 H 94 L - Problem List Review Problem List Initiated/Reviewed/Updated: Yes - My Orders Last 24 Hours: My Active Orders 04/06/20 21:00 GLUCOSE POC LAB TO COLLECT JPM [POC] QIDACANDBED 04/07/20 07:30 GLUCOSE POC LAB TO COLLECT JPM [POC] QIDACANDBED 04/07/20 11:30 GLUCOSE POC LAB TO COLLECT JPM [POC] QIDACANDBED 04/07/20 16:30 GLUCOSE POC LAB TO COLLECT JPM [POC] QIDACANDBED 04/07/20 21:00 GLUCOSE POC LAB TO COLLECT JPM [POC] QIDACANDBED 04/08/20 07:30 GLUCOSE POC LAB TO COLLECT JPM [POC] QIDACANDBED 04/08/20 11:30 GLUCOSE POC LAB TO COLLECT JPM [POC] QIDACANDBED 04/08/20 16:30 GLUCOSE POC LAB TO COLLECT JPM [POC] QIDACANDBED 04/08/20 21:00 GLUCOSE POC LAB TO COLLECT JPM [POC] QIDACANDBED 04/09/20 07:30 GLUCOSE POC LAB TO COLLECT JPM [POC] QIDACANDBED 04/09/20 11:30 GLUCOSE POC LAB TO COLLECT JPM [POC] QIDACANDBED 04/09/20 16:30 GLUCOSE POC LAB TO COLLECT JPM [POC] QIDACANDBED 04/09/20 21:00 GLUCOSE POC LAB TO COLLECT JPM [POC] QIDACANDBED 04/10/20 07:30 GLUCOSE POC LAB TO COLLECT JPM [POC] QIDACANDBED 04/10/20 11:30 GLUCOSE POC LAB TO COLLECT JPM [POC] QIDACANDBED 04/10/20 16:30 GLUCOSE POC LAB TO COLLECT JPM [POC] QIDADBED 04/10/20 21:00 GLUCOSE POC LAB TO COLLECT JPM [POC] QIDACANDBED - Plan Plan:: ASSESSMENT AND PLAN COVID-19 PNEUMONIA-Complicated by acute respiratory failure with hypoxia. Stable but still significantly compromised. Still on 15 L of supplemental oxygen. Symptomatically better. -Limit IV fluids -Remdesivir complete -Continue steroids below (day 8) -Convalescent plasma daily x3 days complete -Therapeutic dose of Lovenox 80 mg subcu daily, secondary to Covid infection and history of previous deep vein thrombosis HYPOXIC AND HYPERCAPNIC RESPIRATORY FAILURE-acute on chronic. Secondary to COVID-19 and underlying COPD. Currently on 15 L of high flow nasal cannula but stable. -Supplemental oxygen as needed COPD EXACERBATION-secondary to Covid infection. Wheezing has resolved and s hortness of breath is better. -transition to dexamethasone 4 mg twice daily -Albuterol inhaler every 2 hours as needed -Mometasone inhaler twice daily -Combivent inhaler 4 times daily ACUTE KIDNEY INJURY-Baseline creatinine in the range of 1.1. Creatinine is nearly back to normal but BUN is still elevated. -Recheck labs in the morning -Closely monitor renal function and urine output TYPE 2 DIABETES MELLITUS-currently on no active medical therapy. Blood sugars moderately elevated with steroid use but improving with supplemental insulin. -4 times daily glucometers -Medium-dose sliding scale Humalog MAINTENANCE ISSUES -DVT prophylaxis; enoxaparin -GI prophylaxis; PPI -Villeda catheter; not indicated -Nutrition; regular diet CODE STATUS-DNR/DNI DISPOSITION-anticipate discharge to home with [facility] after the hospital stay if she survives the hospital stay
[2020-04-06] MEDS: Enoxaparin 80 MG/0.8 ML Syringe SUBCUT SCH (03:54)
[2020-04-06] MEDS: Nystatin Topical Powder 15 GM Bottle TOP SCH ×4 (05:47→22:00)
[2020-04-06] MEDS: Diclofenac Sodium 1% Gel 100 GM Tube TOP SCH ×4 (05:48→21:58)
[2020-04-06] MEDS: Albuterol/Ipratropium 4 GM Inhalation Spray INH SCH ×4 (07:28→21:59)
[2020-04-06] MEDS: Mometasone Furoate HFA 200 mcg/Puff 13 GM Inhaler INH SCH ×2 (07:28→21:59)
[2020-04-06] MEDS: Pantoprazole 40 MG Tab.CR PO SCH (07:56)
[2020-04-06] MEDS: Carvedilol 3.125 MG Tab PO SCH ×2 (07:56→16:48)
[2020-04-06] MEDS: Insulin Lispro 100 Unit/ML 3 ML KwikPen SUBCUT SCH ×4 (07:57→22:01)
[2020-04-06] MEDS: Losartan 50 MG Tab PO SCH (08:00)
[2020-04-06] MEDS: Dexamethasone 2 MG Tab PO SCH ×2 (08:00→21:59)
[2020-04-06] MEDS: Magnesium Oxide 400 MG Tab PO SCH ×3 (08:00→21:58)
[2020-04-06] MEDS: guaiFENesin 600 MG Tab.ER PO SCH ×2 (08:00→21:58)
[2020-04-06] MEDS: Gabapentin 300 MG Cap PO SCH ×3 (08:01→21:58)
[2020-04-06] MEDS: ROPINIROLE PO SCH ×4 (08:01→17:00)
[2020-04-06] MEDS: Fluticasone Propionate Nasal Spray 16 GM Bottle NAS SCH (08:01)
--- NOTE | 2020-04-06 12:51 | PCM.PN ---
- General Info Date of Service: 04/06/20 Subjective Update: Ms. Obrien been stable since yesterday with further modest improvement in her respiratory status and oxygen requirements. Functional Status: Reports: Tolerating Diet, Ambulating, Urinating - Review of Systems General: Reports: Weakness, Fatigue. Denies: Fever, Chills Pulmonary: Reports: Shortness of Breath. Denies: Pleuritic Chest Pain, Cough, Sputum, Hemoptysis, Wheezing Cardiovascular: Reports: Dyspnea on Exertion. Denies: Chest Pain, Palpitations, Orthopnea, PND, Edema, Lightheadedness Gastrointestinal: Reports: No Symptoms - Patient Data Vitals - Most Recent: Last Vital Signs Temp 97.7 F 04/06/20 10:30 Pulse 60 04/06/20 10:30 Resp 18 04/06/20 10:30 BP 156/54 H 04/06/20 10:30 Pulse Ox 96 04/06/20 10:56 Weight - Most Recent: 167 lb 15.876 oz I&O - Last 24 Hours: Intake & Output 04/05/20 04/06/20 04/06/20 22:59 06:59 14:59 Intake Total 1900 500 240 Output Total 400 200 Balance 1900 100 40 Lab Results Last 24 Hours: Laboratory Results - last 24 hr 04/05/20 04/05/20 04/06/20 Range/Units 17:00 21:00 07:30 POC Glucose 144 H 284 H 197 H (74-106) MG/DL 04/06/20 Range/Units 11:30 POC Glucose 262 H (74-106) MG/DL Med Orders - Current: Current Medications Acetaminophen (Tylenol) 650 mg PO Q4H PRN PRN Reason: Pain (Mild 1-3)/fever Hydrocodone Bitart/Acetaminophen ([place] 325-5 Mg) 1 tab PO Q4H PRN PRN Reason: Pain (moderate 4-6) Last Admin: 04/01/20 19:30 Dose: 1 tab Documented by: Albuterol (Ventolin Hfa) 0 gm INH Q2H PRN PRN Reason: Dyspnea Albuterol/Ipratropium (Combivent Respimat) 0 gm INH QIDRT [facility] Last Admin: 04/06/20 10:27 Dose: 2 inhalation Documented by: Benzocaine/Menthol (Cepacol Sore Throat) 1 lozenge MUCMEM 5XDAY PRN PRN Reason: Sore Throat Last Admin: 04/03/20 17:53 Dose: 1 janae Documented by: Benzonatate (Tessalon Perles) 100 mg PO TID PRN PRN Reason: Cough Carvedilol (Coreg) 3.125 mg PO BIDMEALS [facility] Last Admin: 04/06/20 07:56 Dose: 3.125 mg Documented by: Dexamethasone (Dexamethasone) 4 mg PO BID [facility] Last Admin: 04/06/20 08:00 Dose: 4 mg Documented by: Dextrose (Glutose 15) 15 gm PO ONETIME PRN PRN Reason: Hypoglycemia Dextrose/Water (Dextrose 50% In Water) 50 ml IVPUSH ASDIRECTED PRN PRN Reason: Hypoglycemia Diclofenac Sodium (Voltaren 1% Gel) 0 gm TOP QID [facility] Last Admin: 04/06/20 10:27 Dose: 1 applic Documented by: Diphenhydramine HCl (Benadryl) 25 mg PO Q6H PRN PRN Reason: Itching Last Admin: 03/29/20 04:12 Dose: 25 mg Documented by: Enoxaparin Sodium (Lovenox) 80 mg SUBCUT Q24H [facility] Last Admin: 04/06/20 03:54 Dose: 80 mg Documented by: Fluticasone Propionate (Flonase) 0 gm YASMINE DAILY [facility] Last Admin: 04/06/20 08:01 Dose: 2 spray Documented by: Gabapentin (Neurontin) 300 mg PO TID [facility] Last Admin: 04/06/20 08:01 Dose: 300 mg Documented by: Glucagon (Glucagen) 1 mg IM ASDIRECTED PRN PRN Reason: Hypoglycemia Guaifenesin (Mucinex) 600 mg PO BID [facility] Last Admin: 04/06/20 08:00 Dose: 600 mg Documented by: Guaifenesin/Dextromethorphan (Robitussin Dm) 10 ml PO Q6H PRN PRN Reason: Cough Insulin Human Lispro (Humalog) 0 unit SUBCUT QIDACANDBED [facility]; Protocol Last Admin: 04/06/20 07:57 Dose: 2 units Documented by: Losartan Potassium (Cozaar) 50 mg PO DAILY [facility] Last Admin: 04/06/20 08:00 Dose: 50 mg Documented by: Magnesium Oxide (Magnesium Oxide) 400 mg PO TID [facility] Last Admin: 04/06/20 08:00 Dose: 400 mg Documented by: Mometasone Furoate (Asmanex Hfa 200mcg) 0 gm INH BIDRT [facility] Last Admin: 04/06/20 07:28 Dose: 2 inhalation Documented by: Nystatin (Nystop) 0 gm TOP QID [facility] Last Admin: 04/06/20 10:28 Dose: 1 applic Documented by: Ondansetron HCl (Zofran) 4 mg IV Q4H PRN PRN Reason: Nausea/Vomiting Pantoprazole Sodium (Protonix) 40 mg PO ACBREAKFAST [facility] Last Admin: 04/06/20 07:56 Dose: 40 mg Documented by: Polyethylene Glycol (Miralax) 17 gm PO DAILY PRN PRN Reason: Constipation Ropinirole HCl 0.5 mg/ (Ropinirole HCl 1 mg) 1.5 mg PO BID@0900,1800 [facility] Last Admin: 04/06/20 08:01 Dose: 1.5 mg Documented by: Sodium Chloride (Saline Flush) 10 ml FLUSH ASDIRECTED PRN PRN Reason: Keep Vein Open Discontinued Medications Hydrocodone Bitart/Acetaminophen ([place] 325-5 Mg) 1 tab PO Q6H PRN PRN Reason: Pain (moderate 4-6) Last Admin: 03/29/20 14:04 Dose: 1 tab Documented by: Albuterol (Ventolin Hfa) 2 gm INH ONETIME ONE Stop: 03/29/20 00:29 Last Admin: 03/29/20 00:59 Dose: 2 inh Documented by: Albuterol/Ipratropium (Combivent Respimat) 0 gm INH QID [facility] Last Admin: 03/29/20 05:24 Dose: 2 puff Documented by: Dexamethasone (Decadron) 6 mg IVPUSH ONETIME ONE Stop: 03/29/20 00:32 Last Admin: 03/29/20 00:59 Dose: 6 mg Documented by: Dexamethasone (Decadron) 4 mg IVPUSH Q12H [facility] Stop: 04/08/20 01:01 Dexamethasone (Decadron) 6 mg IVPUSH Q24H [facility] Stop: 04/07/20 03:16 Dexamethasone (Decadron) 6 mg IVPUSH Q24H [facility] Stop: 04/08/20 01:01 Last Admin: 03/30/20 00:28 Dose: 6 mg Documented by: Dexamethasone (Decadron) 4 mg IVPUSH Q12H [facility] Stop: 04/08/20 21:01 Last Admin: 03/31/20 08:20 Dose: 4 mg Documented by: Diclofenac Sodium (Voltaren 1% Gel) 4 gm TOP QID [facility] Last Admin: 03/29/20 05:24 Dose: Not Given Documented by: Enoxaparin Sodium (Lovenox) 80 mg SUBCUT BEDTIME [facility] Last Admin: 03/29/20 04:35 Dose: Not Given Documented by: Furosemide (Lasix) 20 mg IVPUSH ONETIME ONE Stop: 03/31/20 06:24 Last Admin: 03/31/20 08:24 Dose: 20 mg Documented by: Furosemide (Lasix) 40 mg IVPUSH ONETIME ONE Stop: 04/04/20 08:02 Last Admin: 04/04/20 08:35 Dose: 40 mg Documented by: Sodium Chloride (Normal Saline) 1,000 mls @ 100 mls/hr IV ASDIRECTED [facility] Remdesivir 200 mg/ Sodium (Chloride) 250 mls @ 250 mls/hr IV ONETIME ONE Stop: 03/29/20 02:38 Last Admin: 03/29/20 04:55 Dose: 250 mls/hr Documented by: Remdesivir 100 mg/ Sodium (Chloride) 100 mls @ 100 mls/hr IV Q24H [facility] Stop: 04/02/20 03:59 Last Admin: 04/02/20 03:54 Dose: 100 mls/hr Documented by: Insulin Human Lispro (Humalog) 0 unit SUBCUT QIDACANDBED [facility]; Protocol Last Admin: 04/03/20 19:47 Dose: Not Given Documented by: Insulin Human Lispro (Humalog) 10 unit SUBCUT ONETIME ONE Stop: 04/03/20 18:23 Last Admin: 04/03/20 18:27 Dose: 10 unit Documented by: Lorazepam (Ativan) 0.5 mg IVPUSH ONETIME ONE Stop: 03/29/20 02:34 Last Admin: 03/29/20 02:46 Dose: 0.5 mg Documented by: Methylprednisolone Sodium Succinate (Solu-Medrol) 62.5 mg IVPUSH Q8H [facility] Last Admin: 04/04/20 11:49 Dose: 62.5 mg Documented by: Ropinirole HCl (Requip) 1.5 mg PO BID [facility] Last Admin: 03/29/20 09:43 Dose: 1.5 mg Documented by: Ropinirole HCl 0.5 mg/ (Ropinirole HCl 1 mg) 1.5 mg PO BID [facility] Stop: 04/04/20 10:00 Last Admin: 04/04/20 08:00 Dose: 1.5 mg Documented by: - Exam Quality Assessment: Supplemental Oxygen, DVT Prophylaxis General: Alert, Oriented, Cooperative, Mild Distress Lungs: Normal Respiratory Effort, Rales, Rhonchi. No: Crackles, Wheezing Cardiovascular: Regular Rate, Regular Rhythm, No Murmurs GI/Abdominal Exam: Soft, Non-Tender, No Organomegaly, No Distention Extremities: Non-Tender, No Pedal Edema Sepsis Event Note - Evaluation Sepsis Screening Result: No Definite Risk - Focused Exam Vital Signs: Vital Signs Temp Pulse Pulse Resp BP BP Pulse Ox 04/06/20 10:56 96 04/06/20 10:30 97.7 F 60 18 156/54 H 98 04/06/20 08:00 186/53 H 04/06/20 07:56 73 186/83 H 04/06/20 07:34 04/06/20 07:18 90 L 04/06/20 07:00 96.3 F L 73 20 186/53 H 93 L 04/06/20 03:52 96.8 F L 67 20 171/59 H 91 L 04/06/20 00:56 95 Pulse Ox 04/06/20 10:56 04/06/20 10:30 04/06/20 08:00 04/06/20 07:56 04/06/20 07:34 93 L 04/06/20 07:18 04/06/20 07:00 04/06/20 03:52 04/06/20 00:56 - Problem List Review Problem List Initiated/Reviewed/Updated: Yes - My Orders Last 24 Hours: My Active Orders 04/06/20 09:12 PT Evaluation and Treatment [CONS] Routine 04/06/20 12:48 Furosemide [Lasix] 40 mg IVPUSH NOW ONE 04/06/20 21:00 GLUCOSE POC LAB TO COLLECT JPM [POC] QIDACANDBED 04/07/20 05:00 BASIC METABOLIC PANEL,BMP [CHEM] Timed 04/07/20 05:11 CRP [C-REACTIVE PROTEIN] [CHEM] AM D Dimer [D-DIMER QUANTITATIVE] [COAG] AM 04/07/20 07:30 GLUCOSE POC LAB TO COLLECT JPM [POC] QIDACANDBED 04/07/20 11:30 GLUCOSE POC LAB TO COLLECT JPM [POC] QIDACANDBED 04/07/20 16:30 GLUCOSE POC LAB TO COLLECT JPM [POC] QIDACANDBED 04/07/20 21:00 GLUCOSE POC LAB TO COLLECT JPM [POC] QIDACANDBED 04/08/20 07:30 GLUCOSE POC LAB TO COLLECT JPM [POC] QIDACANDBED 04/08/20 11:30 GLUCOSE POC LAB TO COLLECT JPM [POC] QIDACANDBED 04/08/20 16:30 GLUCOSE POC LAB TO COLLECT JPM [POC] QIDACANDBED 04/08/20 21:00 GLUCOSE POC LAB TO COLLECT JPM [POC] QIDACANDBED 04/09/20 07:30 GLUCOSE POC LAB TO COLLECT JPM [POC] QIDACANDBED 04/09/20 11:30 GLUCOSE POC LAB TO COLLECT JPM [POC] QIDACANDBED 04/09/20 16:30 GLUCOSE POC LAB TO COLLECT JPM [POC] QIDACANDBED 04/09/20 21:00 GLUCOSE POC LAB TO COLLECT JPM [POC] QIDACANDBED 04/10/20 07:30 GLUCOSE POC LAB TO COLLECT JPM [POC] QIDACANDBED 04/10/20 11:30 GLUCOSE POC LAB TO COLLECT JPM [POC] QIDACANDBED 04/10/20 16:30 GLUCOSE POC LAB TO COLLECT JPM [POC] QIDACANDBED 04/10/20 21:00 GLUCOSE POC LAB TO COLLECT JPM [POC] QIDACANDBED - Plan Plan:: ASSESSMENT AND PLAN COVID-19 PNEUMONIA-Complicated by acute respiratory failure with hypoxia. Stable but still significantly compromised. Slow improvement in respiratory status -Limit IV fluids -Remdesivir complete -Continue steroids below (day 9) -Convalescent plasma daily x3 days complete -Therapeutic dose of Lovenox 80 mg subcu daily, secondary to Covid infection and history of previous deep vein thrombosis HYPOXIC AND HYPERCAPNIC RESPIRATORY FAILURE-acute on chronic. Secondary to COVID-19 and underlying COPD. Currently on 15 L of high flow nasal cannula but stable. -Supplemental oxygen as needed COPD EXACERBATION-secondary to Covid infection. Wheezing has resolved and shortness of breath is better. -transition to dexamethasone 4 mg twice daily -Albuterol inhaler every 2 hours as needed -Mometasone inhaler twice daily -Combivent inhaler 4 times daily ACUTE KIDNEY INJURY-Baseline creatinine in the range of 1.1. Creatinine is nearly back to normal but BUN is still elevated. -Recheck labs in the morning -Closely monitor renal function and urine output TYPE 2 DIABETES MELLITUS-currently on no active medical therapy. Blood sugars moderately elevated with steroid use but improving with supplemental insulin. -4 times daily glucometers -Medium-dose sliding scale Humalog MAINTENANCE ISSUES -DVT prophylaxis; enoxaparin -GI prophylaxis; PPI -Villeda catheter; not indicated -Nutrition; regular diet CODE STATUS-DNR/DNI DISPOSITION-anticipate discharge to home with [facility] after the hospital stay if she survives the hospital stay
[2020-04-06] MEDS ORDERED: Furosemide 40 MG Tab PO ONE (12:55)
[2020-04-06] MEDS ORDERED: Furosemide 40 MG/4 ML VIAL IVPUSH ONE (13:00)
[2020-04-07] MEDS: Enoxaparin 80 MG/0.8 ML Syringe SUBCUT SCH (03:21)
[2020-04-07] MEDS: Diclofenac Sodium 1% Gel 100 GM Tube TOP SCH ×4 (05:33→21:20)
[2020-04-07] MEDS: Nystatin Topical Powder 15 GM Bottle TOP SCH ×4 (05:33→21:21)
[2020-04-07] MEDS: Mometasone Furoate HFA 200 mcg/Puff 13 GM Inhaler INH SCH ×2 (07:43→20:22)
[2020-04-07] MEDS: Albuterol/Ipratropium 4 GM Inhalation Spray INH SCH ×4 (07:44→20:23)
[2020-04-07] MEDS: Insulin Lispro 100 Unit/ML 3 ML KwikPen SUBCUT SCH ×4 (07:46→21:18)
[2020-04-07] MEDS: Pantoprazole 40 MG Tab.CR PO SCH (07:47)
[2020-04-07] MEDS: Carvedilol 3.125 MG Tab PO SCH ×2 (07:48→17:07)
[2020-04-07] MEDS: Gabapentin 300 MG Cap PO SCH ×3 (08:23→20:28)
[2020-04-07] MEDS: Dexamethasone 2 MG Tab PO SCH ×2 (08:24→20:26)
[2020-04-07] MEDS: Magnesium Oxide 400 MG Tab PO SCH ×3 (08:24→20:25)
[2020-04-07] MEDS: ROPINIROLE PO SCH ×4 (08:24→18:45)
[2020-04-07] MEDS: guaiFENesin 600 MG Tab.ER PO SCH ×2 (08:24→20:28)
[2020-04-07] MEDS: Losartan 50 MG Tab PO SCH (08:25)
[2020-04-07] MEDS: Fluticasone Propionate Nasal Spray 16 GM Bottle NAS SCH (08:25)
--- NOTE | 2020-04-07 12:57 | PCM.PN ---
- General Info Date of Service: 04/07/20 Subjective Update: Ms. Obrien has continued to show slow improvement with less shortness of breath and desaturations with activity. Tolerating lower levels of supplemental oxygen over the past few days. Functional Status: Reports: Tolerating Diet, Ambulating, Urinating - Review of Systems General: Reports: Weakness, Fatigue. Denies: Fever, Chills Pulmonary: Reports: Shortness of Breath. Denies: Pleuritic Chest Pain, Cough, Sputum, Hemoptysis, Wheezing Cardiovascular: Reports: Dyspnea on Exertion. Denies: Chest Pain, Palpitations, Orthopnea, PND, Edema, Lightheadedness Gastrointestinal: Reports: No Symptoms - Patient Data Vitals - Most Recent: Last Vital Signs Temp 97.7 F 04/07/20 10:46 Pulse 65 04/07/20 10:46 Resp 16 04/07/20 10:46 BP 148/44 H 04/07/20 10:46 Pulse Ox 92 L 04/07/20 10:46 Weight - Most Recent: 187 lb 13.341 oz I&O - Last 24 Hours: Intake & Output 04/06/20 04/07/20 04/07/20 22:59 06:59 14:59 Intake Total 450 1000 Output Total 600 300 Balance -150 1000 -300 Lab Results Last 24 Hours: Laboratory Results - last 24 hr 04/06/20 04/06/20 04/07/20 Range/Units 16:50 21:00 05:55 D-Dimer, Quantitative (0.0-500.0) ng/mL Sodium 146 (140-148) mmol/L Potassium 5.0 (3.6-5.2) mmol/L Chloride 111 H (100-108) mmol/L Carbon Dioxide 33 H (21-32) mmol/L Anion Gap 7.0 (5.0-14.0) mmol/L BUN 56 H (7-18) mg/dL Creatinine 0.8 (0.6-1.0) mg/dL Est Cr Clr Drug Dosing 49.53 mL/min Estimated GFR (MDRD) > 60 (>60) Glucose 168 H (74-106) mg/dL POC Glucose 242 H 330 H (74-106) MG/DL Calcium 8.4 L (8.5-10.1) mg/dL C-Reactive Protein (0.0-0.3) mg/dL 04/07/20 04/07/20 04/07/20 Range/Units 05:55 05:55 07:30 D-Dimer, Quantitative 677.47 H (0.0-500.0) ng/mL Sodium (140-148) mmol/L Potassium (3.6-5.2) mmol/L Chloride (100-108) mmol/L Carbon Dioxide (21-32) mmol/L Anion Gap (5.0-14.0) mmol/L BUN (7-18) mg/dL Creatinine (0.6-1.0) mg/dL Est Cr Clr Drug Dosing mL/min Estimated GFR (MDRD) (>60) Glucose (74-106) mg/dL POC Glucose 209 H (74-106) MG/DL Calcium (8.5-10.1) mg/dL C-Reactive Protein 1.10 H (0.0-0.3) mg/dL 04/07/20 Range/Units 11:30 D-Dimer, Quantitative (0.0-500.0) ng/mL Sodium (140-148) mmol/L Potassium (3.6-5.2) mmol/L Chloride (100-108) mmol/L Carbon Dioxide (21-32) mmol/L Anion Gap (5.0-14.0) mmol/L BUN (7-18) mg/dL Creatinine (0.6-1.0) mg/dL Est Cr Clr Drug Dosing mL/min Estimated GFR (MDRD) (>60) Glucose (74-106) mg/dL POC Glucose 333 H (74-106) MG/DL Calcium (8.5-10.1) mg/dL C-Reactive Protein (0.0-0.3) mg/dL Med Orders - Current: Current Medications Acetaminophen (Tylenol) 650 mg PO Q4H PRN PRN Reason: Pain (Mild 1-3)/fever Hydrocodone Bitart/Acetaminophen ([place] 325-5 Mg) 1 tab PO Q4H PRN PRN Reason: Pain (moderate 4-6) Last Admin: 04/01/20 19:30 Dose: 1 tab Documented by: Albuterol (Ventolin Hfa) 0 gm INH Q2H PRN PRN Reason: Dyspnea Albuterol/Ipratropium (Combivent Respimat) 0 gm INH QIDRT [facility] Last Admin: 04/07/20 11:02 Dose: 2 inhalation Documented by: Benzocaine/Menthol (Cepacol Sore Throat) 1 lozenge MUCMEM 5XDAY PRN PRN Reason: Sore Throat Last Admin: 04/03/20 17:53 Dose: 1 janae Documented by: Benzonatate (Tessalon Perles) 100 mg PO TID PRN PRN Reason: Cough Carvedilol (Coreg) 6.25 mg PO BIDMEALS [facility] Last Admin: 04/07/20 07:48 Dose: 6.25 mg Documented by: Dexamethasone (Dexamethasone) 4 mg PO BID [facility] Last Admin: 04/07/20 08:24 Dose: 4 mg Documented by: Dextrose (Glutose 15) 15 gm PO ONETIME PRN PRN Reason: Hypoglycemia Dextrose/Water (Dextrose 50% In Water) 50 ml IVPUSH ASDIRECTED PRN PRN Reason: Hypoglycemia Diclofenac Sodium (Voltaren 1% Gel) 0 gm TOP QID [facility] Last Admin: 04/07/20 10:19 Dose: Not Given Documented by: Diphenhydramine HCl (Benadryl) 25 mg PO Q6H PRN PRN Reason: Itching Last Admin: 03/29/20 04:12 Dose: 25 mg Documented by: Enoxaparin Sodium (Lovenox) 80 mg SUBCUT Q24H [facility] Last Admin: 04/07/20 03:21 Dose: 80 mg Documented by: Fluticasone Propionate (Flonase) 0 gm YASMINE DAILY [facility] Last Admin: 04/07/20 08:25 Dose: 2 spray Documented by: Gabapentin (Neurontin) 300 mg PO TID [facility] Last Admin: 04/07/20 08:23 Dose: 300 mg Documented by: Glucagon (Glucagen) 1 mg IM ASDIRECTED PRN PRN Reason: Hypoglycemia Guaifenesin (Mucinex) 600 mg PO BID [facility] Last Admin: 04/07/20 08:24 Dose: 600 mg Documented by: Guaifenesin/Dextromethorphan (Robitussin Dm) 10 ml PO Q6H PRN PRN Reason: Cough Insulin Human Lispro (Humalog) 0 unit SUBCUT QIDACANDBED [facility]; Protocol Last Admin: 04/07/20 07:46 Dose: 4 units Documented by: Losartan Potassium (Cozaar) 50 mg PO DAILY [facility] Last Admin: 04/07/20 08:25 Dose: 50 mg Documented by: Magnesium Oxide (Magnesium Oxide) 400 mg PO TID [facility] Last Admin: 04/07/20 08:24 Dose: 400 mg Documented by: Mometasone Furoate (Asmanex Hfa 200mcg) 0 gm INH BIDRT [facility] Last Admin: 04/07/20 07:43 Dose: 2 inhalation Documented by: Nystatin (Nystop) 0 gm TOP QID [facility] Last Admin: 04/07/20 10:19 Dose: Not Given Documented by: Ondansetron HCl (Zofran) 4 mg IV Q4H PRN PRN Reason: Nausea/Vomiting Pantoprazole Sodium (Protonix) 40 mg PO ACBREAKFAST [facility] Last Admin: 04/07/20 07:47 Dose: 40 mg Documented by: Polyethylene Glycol (Miralax) 17 gm PO DAILY PRN PRN Reason: Constipation Ropinirole HCl 0.5 mg/ (Ropinirole HCl 1 mg) 1.5 mg PO BID@0900,1800 [facility] Last Admin: 04/07/20 08:24 Dose: 1.5 mg Documented by: Sodium Chloride (Saline Flush) 10 ml FLUSH ASDIRECTED PRN PRN Reason: Keep Vein Open Discontinued Medications Hydrocodone Bitart/Acetaminophen ([place] 325-5 Mg) 1 tab PO Q6H PRN PRN Reason: Pain (moderate 4-6) Last Admin: 03/29/20 14:04 Dose: 1 tab Documented by: Albuterol (Ventolin Hfa) 2 gm INH ONETIME ONE Stop: 03/29/20 00:29 Last Admin: 03/29/20 00:59 Dose: 2 inh Documented by: Albuterol/Ipratropium (Combivent Respimat) 0 gm INH QID [facility] Last Admin: 03/29/20 05:24 Dose: 2 puff Documented by: Carvedilol (Coreg) 3.125 mg PO BIDMEALS [facility] Last Admin: 04/06/20 07:56 Dose: 3.125 mg Documented by: Dexamethasone (Decadron) 6 mg IVPUSH ONETIME ONE Stop: 03/29/20 00:32 Last Admin: 03/29/20 00:59 Dose: 6 mg Documented by: Dexamethasone (Decadron) 4 mg IVPUSH Q12H [facility] Stop: 04/08/20 01:01 Dexamethasone (Decadron) 6 mg IVPUSH Q24H [facility] Stop: 04/07/20 03:16 Dexamethasone (Decadron) 6 mg IVPUSH Q24H [facility] Stop: 04/08/20 01:01 Last Admin: 03/30/20 00:28 Dose: 6 mg Documented by: Dexamethasone (Decadron) 4 mg IVPUSH Q12H [facility] Stop: 04/08/20 21:01 Last Admin: 03/31/20 08:20 Dose: 4 mg Documented by: Diclofenac Sodium (Voltaren 1% Gel) 4 gm TOP QID [facility] Last Admin: 03/29/20 05:24 Dose: Not Given Documented by: Enoxaparin Sodium (Lovenox) 80 mg SUBCUT BEDTIME [facility] Last Admin: 03/29/20 04:35 Dose: Not Given Documented by: Furosemide (Lasix) 20 mg IVPUSH ONETIME ONE Stop: 03/31/20 06:24 Last Admin: 03/31/20 08:24 Dose: 20 mg Documented by: Furosemide (Lasix) 40 mg IVPUSH ONETIME ONE Stop: 04/04/20 08:02 Last Admin: 04/04/20 08:35 Dose: 40 mg Documented by: Furosemide (Lasix) 40 mg IVPUSH NOW ONE Stop: 04/06/20 13:01 Furosemide (Lasix) 40 mg PO ONETIME ONE Stop: 04/06/20 12:56 Last Admin: 04/06/20 13:11 Dose: 40 mg Documented by: Sodium Chloride (Normal Saline) 1,000 mls @ 100 mls/hr IV ASDIRECTED [facility] Remdesivir 200 mg/ Sodium (Chloride) 250 mls @ 250 mls/hr IV ONETIME ONE Stop: 03/29/20 02:38 Last Admin: 03/29/20 04:55 Dose: 250 mls/hr Documented by: Remdesivir 100 mg/ Sodium (Chloride) 100 mls @ 100 mls/hr IV Q24H [facility] Stop: 04/02/20 03:59 Last Admin: 04/02/20 03:54 Dose: 100 mls/hr Documented by: Insulin Human Lispro (Humalog) 0 unit SUBCUT QIDACANDBED [facility]; Protocol Last Admin: 04/03/20 19:47 Dose: Not Given Documented by: Insulin Human Lispro (Humalog) 10 unit SUBCUT ONETIME ONE Stop: 04/03/20 18:23 Last Admin: 04/03/20 18:27 Dose: 10 unit Documented by: Lorazepam (Ativan) 0.5 mg IVPUSH ONETIME ONE Stop: 03/29/20 02:34 Last Admin: 03/29/20 02:46 Dose: 0.5 mg Documented by: Methylprednisolone Sodium Succinate (Solu-Medrol) 62.5 mg IVPUSH Q8H [facility] Last Admin: 04/04/20 11:49 Dose: 62.5 mg Documented by: Ropinirole HCl (Requip) 1.5 mg PO BID [facility] Last Admin: 03/29/20 09:43 Dose: 1.5 mg Documented by: Ropinirole HCl 0.5 mg/ (Ropinirole HCl 1 mg) 1.5 mg PO BID [facility] Stop: 04/04/20 10:00 Last Admin: 04/04/20 08:00 Dose: 1.5 mg Documented by: - Exam Quality Assessment: Supplemental Oxygen, DVT Prophylaxis General: Alert, Oriented, Cooperative, Mild Distress Lungs: Clear to Auscultation, Normal Respiratory Effort, Decreased Breath Sounds. No: Rales, Rhonchi, Wheezing Cardiovascular: Regular Rate, Regular Rhythm, No Murmurs GI/Abdominal Exam: Soft, Non-Tender, No Organomegaly, No Distention Extremities: Non-Tender, No Pedal Edema Sepsis Event Note - Evaluation Sepsis Screening Result: No Definite Risk - Focused Exam Vital Signs: Vital Signs Temp Temp Pulse Pulse Resp BP BP 04/07/20 10:46 97.7 F 65 16 148/44 H 04/07/20 08:25 197/60 H 04/07/20 07:48 70 197/60 H 04/07/20 07:19 04/07/20 07:00 97.7 F 70 18 197/60 H 04/07/20 03:21 97.7 F 65 20 162/55 H Pulse Ox 04/07/20 10:46 92 L 04/07/20 08:25 04/07/20 07:48 04/07/20 07:19 99 04/07/20 07:00 92 L 04/07/20 03:21 93 L - Problem List Review Problem List Initiated/Reviewed/Updated: Yes - My Orders Last 24 Hours: My Active Orders 04/06/20 17:00 carvediloL [Coreg] 6.25 mg PO BIDMEALS 04/07/20 16:30 GLUCOSE POC LAB TO COLLECT JPM [POC] QIDACANDBED 04/07/20 21:00 GLUCOSE POC LAB TO COLLECT JPM [POC] QIDACANDBED 04/08/20 07:30 GLUCOSE POC LAB TO COLLECT JPM [POC] QIDACANDBED 04/08/20 11:30 GLUCOSE POC LAB TO COLLECT JPM [POC] QIDACANDBED 04/08/20 16:30 GLUCOSE POC LAB TO COLLECT JPM [POC] QIDACANDBED 04/08/20 21:00 GLUCOSE POC LAB TO COLLECT JPM [POC] QIDACANDBED 04/09/20 07:30 GLUCOSE POC LAB TO COLLECT JPM [POC] QIDACANDBED 04/09/20 11:30 GLUCOSE POC LAB TO COLLECT JPM [POC] QIDACANDBED 04/09/20 16:30 GLUCOSE POC LAB TO COLLECT JPM [POC] QIDACANDBED 04/09/20 21:00 GLUCOSE POC LAB TO COLLECT JPM [POC] QIDACANDBED 04/10/20 07:30 GLUCOSE POC LAB TO COLLECT JPM [POC] QIDACANDBED 04/10/20 11:30 GLUCOSE POC LAB TO COLLECT JPM [POC] QIDACANDBED 04/10/20 16:30 GLUCOSE POC LAB TO COLLECT JPM [POC] QIDACANDBED 04/10/20 21:00 GLUCOSE POC LAB TO COLLECT JPM [POC] QIDACANDBED - Plan Plan:: ASSESSMENT AND PLAN COVID-19 PNEUMONIA-Complicated by acute respiratory failure with hypoxia. Stable but still significantly compromised. Slow improvement in respiratory status -Limit IV fluids -Remdesivir complete -Continue steroids below (day 10) -Convalescent plasma daily x3 days complete -Therapeutic dose of Lovenox 80 mg subcu daily, secondary to Covid infection and history of previous deep vein thrombosis HYPOXIC AND HYPERCAPNIC RESPIRATORY FAILURE-acute on chronic. Secondary to COVID-19 and underlying COPD. -Supplemental oxygen as needed COPD EXACERBATION-secondary to Covid infection. Wheezing has resolved and shortness of breath is better. -transition to dexamethasone 4 mg once daily -Albuterol inhaler every 2 hours as needed -Mometasone inhaler twice daily -Combivent inhaler 4 times daily ACUTE KIDNEY INJURY-Baseline creatinine in the range of 1.1. Creatinine is nearly back to normal but BUN is still elevated. -Recheck labs in the morning -Closely monitor renal function and urine output TYPE 2 DIABETES MELLITUS-currently on no active medical therapy. Blood sugars moderately elevated with steroid use but improving with supplemental insulin. -4 times daily glucometers -Medium-dose sliding scale Humalog MAINTENANCE ISSUES -DVT prophylaxis; enoxaparin -GI prophylaxis; PPI -Villeda catheter; not indicated -Nutrition; regular diet CODE STATUS-DNR/DNI DISPOSITION-anticipate discharge to home with [facility] home [facility] after the hospital stay if she survives the hospital stay
[2020-04-08] MEDS: Enoxaparin 80 MG/0.8 ML Syringe SUBCUT SCH (03:23)
[2020-04-08] MEDS: Acetaminophen/HYDROcodone 325-5 MG Tab PO PRN (03:29)
[2020-04-08] MEDS: Diclofenac Sodium 1% Gel 100 GM Tube TOP SCH ×5 (03:35→21:31)
[2020-04-08] MEDS: Nystatin Topical Powder 15 GM Bottle TOP SCH ×4 (05:07→21:31)
[2020-04-08] MEDS: Albuterol/Ipratropium 4 GM Inhalation Spray INH SCH ×4 (07:22→21:30)
[2020-04-08] MEDS: Mometasone Furoate HFA 200 mcg/Puff 13 GM Inhaler INH SCH ×2 (07:22→21:30)
[2020-04-08] MEDS: Pantoprazole 40 MG Tab.CR PO SCH (07:41)
[2020-04-08] MEDS: Insulin Lispro 100 Unit/ML 3 ML KwikPen SUBCUT SCH ×4 (07:41→21:29)
[2020-04-08] MEDS: Carvedilol 3.125 MG Tab PO SCH ×2 (07:43→17:09)
[2020-04-08] MEDS: guaiFENesin 600 MG Tab.ER PO SCH ×2 (09:25→21:31)
[2020-04-08] MEDS: Gabapentin 300 MG Cap PO SCH ×3 (09:25→21:31)
[2020-04-08] MEDS: Losartan 50 MG Tab PO SCH (09:25)
[2020-04-08] MEDS: ROPINIROLE PO SCH ×4 (09:25→17:09)
[2020-04-08] MEDS: Magnesium Oxide 400 MG Tab PO SCH ×3 (09:25→21:31)
[2020-04-08] MEDS: Dexamethasone 2 MG Tab PO SCH (09:25)
[2020-04-08] MEDS: Fluticasone Propionate Nasal Spray 16 GM Bottle NAS SCH (09:25)
--- NOTE | 2020-04-08 14:25 | PCM.PN ---
- General Info Date of Service: 04/08/20 Subjective Update: Ms. Obrien has remained stable over the last 24 hours. Continues to require higher level of supplemental oxygen but has noted modest improvement on a daily basis over the past several days. She desaturates less with activity and reports less symptoms of shortness of breath. Functional Status: Reports: Tolerating Diet, Ambulating, Urinating - Review of Systems General: Reports: Weakness, Fatigue. Denies: Fever, Chills Pulmonary: Reports: Shortness of Breath. Denies: Pleuritic Chest Pain, Cough, Sputum, Hemoptysis, Wheezing Cardiovascular: Reports: Dyspnea on Exertion. Denies: Chest Pain, Palpitations, Orthopnea, PND, Edema, Lightheadedness Gastrointestinal: Reports: No Symptoms - Patient Data Vitals - Most Recent: Last Vital Signs Temp 97.0 F 04/08/20 10:52 Pulse 60 04/08/20 10:52 Resp 16 04/08/20 10:52 BP 141/45 H 04/08/20 10:52 Pulse Ox 97 04/08/20 10:52 Weight - Most Recent: 187 lb 13.341 oz I&O - Last 24 Hours: Intake & Output 04/07/20 04/08/20 04/08/20 22:59 06:59 14:59 Intake Total 240 980 Output Total 600 Balance -360 980 Lab Results Last 24 Hours: Laboratory Results - last 24 hr 04/07/20 04/07/20 04/08/20 Range/Units 16:30 21:00 07:30 POC Glucose 373 H 209 H 218 H (74-106) MG/DL 04/08/20 Range/Units 11:30 POC Glucose 239 H (74-106) MG/DL Med Orders - Current: Current Medications Acetaminophen (Tylenol) 650 mg PO Q4H PRN PRN Reason: Pain (Mild 1-3)/fever Hydrocodone Bitart/Acetaminophen ([place] 325-5 Mg) 1 tab PO Q4H PRN PRN Reason: Pain (moderate 4-6) Last Admin: 04/08/20 03:29 Dose: 1 tab Documented by: Albuterol (Ventolin Hfa) 0 gm INH Q2H PRN PRN Reason: Dyspnea Albuterol/Ipratropium (Combivent Respimat) 0 gm INH QIDRT [facility] Last Admin: 04/08/20 10:49 Dose: 2 inhalation Documented by: Benzocaine/Menthol (Cepacol Sore Throat) 1 lozenge MUCMEM 5XDAY PRN PRN Reason: Sore Throat Last Admin: 04/03/20 17:53 Dose: 1 janae Documented by: Benzonatate (Tessalon Perles) 100 mg PO TID PRN PRN Reason: Cough Carvedilol (Coreg) 6.25 mg PO BIDMEALS [facility] Last Admin: 04/08/20 07:43 Dose: 6.25 mg Documented by: Dexamethasone (Dexamethasone) 4 mg PO DAILY@0800 [facility] Dextrose (Glutose 15) 15 gm PO ONETIME PRN PRN Reason: Hypoglycemia Dextrose/Water (Dextrose 50% In Water) 50 ml IVPUSH ASDIRECTED PRN PRN Reason: Hypoglycemia Diclofenac Sodium (Voltaren 1% Gel) 0 gm TOP QID [facility] Last Admin: 04/08/20 09:24 Dose: Not Given Documented by: Diphenhydramine HCl (Benadryl) 25 mg PO Q6H PRN PRN Reason: Itching Last Admin: 03/29/20 04:12 Dose: 25 mg Documented by: Enoxaparin Sodium (Lovenox) 80 mg SUBCUT Q24H [facility] Last Admin: 04/08/20 03:23 Dose: 80 mg Documented by: Fluticasone Propionate (Flonase) 0 gm YASMINE DAILY [facility] Last Admin: 04/08/20 09:25 Dose: Not Given Documented by: Gabapentin (Neurontin) 300 mg PO TID [facility] Last Admin: 04/08/20 13:12 Dose: 300 mg Documented by: Glucagon (Glucagen) 1 mg IM ASDIRECTED PRN PRN Reason: Hypoglycemia Guaifenesin (Mucinex) 600 mg PO BID [facility] Last Admin: 04/08/20 09:25 Dose: 600 mg Documented by: Guaifenesin/Dextromethorphan (Robitussin Dm) 10 ml PO Q6H PRN PRN Reason: Cough Insulin Human Lispro (Humalog) 0 unit SUBCUT QIDACANDBED [facility]; Protocol Last Admin: 04/08/20 12:20 Dose: 4 units Documented by: Losartan Potassium (Cozaar) 50 mg PO DAILY [facility] Last Admin: 04/08/20 09:25 Dose: 50 mg Documented by: Magnesium Oxide (Magnesium Oxide) 400 mg PO TID [facility] Last Admin: 04/08/20 13:12 Dose: 400 mg Documented by: Mometasone Furoate (Asmanex Hfa 200mcg) 0 gm INH BIDRT [facility] Last Admin: 04/08/20 07:22 Dose: 2 inhalation Documented by: Nystatin (Nystop) 0 gm TOP QID [facility] Last Admin: 04/08/20 09:26 Dose: 1 applic Documented by: Ondansetron HCl (Zofran) 4 mg IV Q4H PRN PRN Reason: Nausea/Vomiting Pantoprazole Sodium (Protonix) 40 mg PO ACBREAKFAST [facility] Last Admin: 04/08/20 07:41 Dose: 40 mg Documented by: Polyethylene Glycol (Miralax) 17 gm PO DAILY PRN PRN Reason: Constipation Ropinirole HCl 0.5 mg/ (Ropinirole HCl 1 mg) 1.5 mg PO BID@0900,1800 [facility] Last Admin: 04/08/20 09:25 Dose: 1.5 mg Documented by: Sodium Chloride (Saline Flush) 10 ml FLUSH ASDIRECTED PRN PRN Reason: Keep Vein Open Discontinued Medications Hydrocodone Bitart/Acetaminophen ([place] 325-5 Mg) 1 tab PO Q6H PRN PRN Reason: Pain (moderate 4-6) Last Admin: 03/29/20 14:04 Dose: 1 tab Documented by: Albuterol (Ventolin Hfa) 2 gm INH ONETIME ONE Stop: 03/29/20 00:29 Last Admin: 03/29/20 00:59 Dose: 2 inh Documented by: Albuterol/Ipratropium (Combivent Respimat) 0 gm INH QID [facility] Last Admin: 03/29/20 05:24 Dose: 2 puff Documented by: Carvedilol (Coreg) 3.125 mg PO BIDMEALS [facility] Last Admin: 04/06/20 07:56 Dose: 3.125 mg Documented by: Dexamethasone (Decadron) 6 mg IVPUSH ONETIME ONE Stop: 03/29/20 00:32 Last Admin: 03/29/20 00:59 Dose: 6 mg Documented by: Dexamethasone (Decadron) 4 mg IVPUSH Q12H [facility] Stop: 04/08/20 01:01 Dexamethasone (Decadron) 6 mg IVPUSH Q24H [facility] Stop: 04/07/20 03:16 Dexamethasone (Decadron) 6 mg IVPUSH Q24H [facility] Stop: 04/08/20 01:01 Last Admin: 03/30/20 00:28 Dose: 6 mg Documented by: Dexamethasone (Decadron) 4 mg IVPUSH Q12H [facility] Stop: 04/08/20 21:01 Last Admin: 03/31/20 08:20 Dose: 4 mg Documented by: Dexamethasone (Dexamethasone) 4 mg PO BID [facility] Last Admin: 04/08/20 09:25 Dose: 4 mg Documented by: Diclofenac Sodium (Voltaren 1% Gel) 4 gm TOP QID [facility] Last Admin: 03/29/20 05:24 Dose: Not Given Documented by: Enoxaparin Sodium (Lovenox) 80 mg SUBCUT BEDTIME [facility] Last Admin: 03/29/20 04:35 Dose: Not Given Documented by: Furosemide (Lasix) 20 mg IVPUSH ONETIME ONE Stop: 03/31/20 06:24 Last Admin: 03/31/20 08:24 Dose: 20 mg Documented by: Furosemide (Lasix) 40 mg IVPUSH ONETIME ONE Stop: 04/04/20 08:02 Last Admin: 04/04/20 08:35 Dose: 40 mg Documented by: Furosemide (Lasix) 40 mg IVPUSH NOW ONE Stop: 04/06/20 13:01 Furosemide (Lasix) 40 mg PO ONETIME ONE Stop: 04/06/20 12:56 Last Admin: 04/06/20 13:11 Dose: 40 mg Documented by: Sodium Chloride (Normal Saline) 1,000 mls @ 100 mls/hr IV ASDIRECTED [facility] Remdesivir 200 mg/ Sodium (Chloride) 250 mls @ 250 mls/hr IV ONETIME ONE Stop: 03/29/20 02:38 Last Admin: 03/29/20 04:55 Dose: 250 mls/hr Documented by: Remdesivir 100 mg/ Sodium (Chloride) 100 mls @ 100 mls/hr IV Q24H [facility] Stop: 04/02/20 03:59 Last Admin: 04/02/20 03:54 Dose: 100 mls/hr Documented by: Insulin Human Lispro (Humalog) 0 unit SUBCUT QIDACANDBED [facility]; Protocol Last Admin: 04/03/20 19:47 Dose: Not Given Documented by: Insulin Human Lispro (Humalog) 10 unit SUBCUT ONETIME ONE Stop: 04/03/20 18:23 Last Admin: 04/03/20 18:27 Dose: 10 unit Documented by: Lorazepam (Ativan) 0.5 mg IVPUSH ONETIME ONE Stop: 03/29/20 02:34 Last Admin: 03/29/20 02:46 Dose: 0.5 mg Documented by: Methylprednisolone Sodium Succinate (Solu-Medrol) 62.5 mg IVPUSH Q8H [facility] Last Admin: 04/04/20 11:49 Dose: 62.5 mg Documented by: Ropinirole HCl (Requip) 1.5 mg PO BID [facility] Last Admin: 03/29/20 09:43 Dose: 1.5 mg Documented by: Ropinirole HCl 0.5 mg/ (Ropinirole HCl 1 mg) 1.5 mg PO BID [facility] Stop: 04/04/20 10:00 Last Admin: 04/04/20 08:00 Dose: 1.5 mg Documented by: - Exam Quality Assessment: DVT Prophylaxis General: Alert, Oriented, Cooperative, Mild Distress Lungs: Normal Respiratory Effort, Decreased Breath Sounds, Rales. No: Crackles, Rhonchi, Wheezing Cardiovascular: Regular Rate, Regular Rhythm, No Murmurs GI/Abdominal Exam: Soft, Non-Tender, No Organomegaly, No Distention Extremities: Non-Tender, No Pedal Edema Sepsis Event Note - Evaluation Sepsis Screening Result: No Definite Risk - Focused Exam Vital Signs: Vital Signs Temp Pulse Pulse Resp BP BP Pulse Ox 04/08/20 10:52 97.0 F 60 16 141/45 H 97 04/08/20 09:25 160/60 H 04/08/20 07:43 65 160/60 H 04/08/20 07:32 97.0 F 65 16 160/60 H 95 04/08/20 07:15 94 L 04/08/20 03:21 98.9 F 69 18 161/60 H 97 - Problem List Review Problem List Initiated/Reviewed/Updated: Yes - My Orders Last 24 Hours: My Active Orders 04/08/20 16:30 GLUCOSE POC LAB TO COLLECT JPM [POC] QIDACANDBED 04/08/20 21:00 GLUCOSE POC LAB TO COLLECT JPM [POC] QIDACANDBED 04/09/20 05:00 BASIC METABOLIC PANEL,BMP [CHEM] Timed 04/09/20 05:11 CRP [C-REACTIVE PROTEIN] [CHEM] AM D Dimer [D-DIMER QUANTITATIVE] [COAG] AM 04/09/20 07:30 GLUCOSE POC LAB TO COLLECT JPM [POC] QIDACANDBED 04/09/20 08:00 dexAMETHasone 4 mg PO DAILY@0800 04/09/20 11:30 GLUCOSE POC LAB TO COLLECT JPM [POC] QIDACANDBED 04/09/20 16:30 GLUCOSE POC LAB TO COLLECT JPM [POC] QIDACANDBED 04/09/20 21:00 GLUCOSE POC LAB TO COLLECT JPM [POC] QIDACANDBED 04/10/20 07:30 GLUCOSE POC LAB TO COLLECT JPM [POC] QIDACANDBED 04/10/20 11:30 GLUCOSE POC LAB TO COLLECT JPM [POC] QIDACANDBED 04/10/20 16:30 GLUCOSE POC LAB TO COLLECT JPM [POC] QIDACANDBED 04/10/20 21:00 GLUCOSE POC LAB TO COLLECT JPM [POC] QIDACANDBED - Plan Plan:: ASSESSMENT AND PLAN COVID-19 PNEUMONIA-Complicated by acute respiratory failure with hypoxia. Stable but still significantly compromised. Slow improvement in respiratory status -Remdesivir complete -Continue steroids below (day 11), decrease dose of Decadron to 4 mg daily -Convalescent plasma daily x3 days complete -Therapeutic dose of Lovenox 80 mg subcu daily, secondary to Covid infection and history of previous deep vein thrombosis HYPOXIC AND HYPERCAPNIC RESPIRATORY FAILURE-acute on chronic. Secondary to COVID-19 and underlying COPD. -Supplemental oxygen as needed COPD EXACERBATION-secondary to Covid infection. Wheezing has resolved and shortness of breath is better. -transition to dexamethasone 4 mg once daily -Albuterol inhaler every 2 hours as needed -Mometasone inhaler twice daily -Combivent inhaler 4 times daily ACUTE KIDNEY INJURY-Baseline creatinine in the range of 1.1. -Recheck labs in the morning -Closely monitor renal function and urine output TYPE 2 DIABETES MELLITUS-currently on no active medical therapy. Blood sugars moderately elevated with steroid use but improving with supplemental insulin. -4 times daily glucometers -Medium-dose sliding scale Humalog MAINTENANCE ISSUES -DVT prophylaxis; enoxaparin -GI prophylaxis; PPI -Villeda catheter; not indicated -Nutrition; regular diet CODE STATUS-DNR/DNI DISPOSITION-anticipate discharge to home with [facility] after the hospital stay if she survives the hospital stay
[2020-04-09] MEDS: Enoxaparin 80 MG/0.8 ML Syringe SUBCUT SCH (03:43)
[2020-04-09] MEDS: Diclofenac Sodium 1% Gel 100 GM Tube TOP SCH ×5 (05:15→21:53)
[2020-04-09] MEDS: Nystatin Topical Powder 15 GM Bottle TOP SCH ×4 (05:15→21:53)
[2020-04-09] MEDS: Mometasone Furoate HFA 200 mcg/Puff 13 GM Inhaler INH SCH ×2 (07:20→21:48)
[2020-04-09] MEDS: Albuterol/Ipratropium 4 GM Inhalation Spray INH SCH ×4 (07:20→21:50)
[2020-04-09] MEDS: Carvedilol 3.125 MG Tab PO SCH ×2 (07:37→17:16)
[2020-04-09] MEDS: Dexamethasone 2 MG Tab PO SCH (07:41)
[2020-04-09] MEDS: Pantoprazole 40 MG Tab.CR PO SCH (07:42)
[2020-04-09] MEDS: Insulin Lispro 100 Unit/ML 3 ML KwikPen SUBCUT SCH ×4 (07:59→21:47)
[2020-04-09] MEDS: Gabapentin 300 MG Cap PO SCH ×3 (09:34→21:52)
[2020-04-09] MEDS: guaiFENesin 600 MG Tab.ER PO SCH ×2 (09:34→21:52)
[2020-04-09] MEDS: Losartan 50 MG Tab PO SCH (09:34)
[2020-04-09] MEDS: Magnesium Oxide 400 MG Tab PO SCH ×3 (09:36→21:52)
[2020-04-09] MEDS: ROPINIROLE PO SCH ×4 (09:37→17:16)
[2020-04-09] MEDS: Fluticasone Propionate Nasal Spray 16 GM Bottle NAS SCH (09:42)
[2020-04-09] MEDS ORDERED: Furosemide 20 MG Tab PO ONE (11:45)
--- NOTE | 2020-04-09 13:47 | PCM.PN ---
- General Info Date of Service: 04/09/20 Functional Status: Reports: Pain Controlled, Tolerating Diet - Review of Systems General: Reports: No Symptoms HEENT: Reports: No Symptoms Pulmonary: Reports: No Symptoms Cardiovascular: Reports: No Symptoms Gastrointestinal: Reports: No Symptoms Genitourinary: Reports: No Symptoms Musculoskeletal: Reports: No Symptoms Skin: Reports: No Symptoms Neurological: Reports: No Symptoms Psychiatric: Reports: No Symptoms - Patient Data Vitals - Most Recent: Last Vital Signs Temp 97.3 F 04/09/20 11:00 Pulse 60 04/09/20 11:00 Resp 14 04/09/20 11:00 BP 162/49 H 04/09/20 11:00 Pulse Ox 95 04/09/20 13:17 Weight - Most Recent: 147 lb 15.306 oz I&O - Last 24 Hours: Intake & Output 04/08/20 04/09/20 04/09/20 22:59 06:59 14:59 Intake Total 900 Output Total 450 200 Balance 450 -200 Lab Results Last 24 Hours: Laboratory Results - last 24 hr 04/08/20 04/08/20 04/08/20 Range/Units 16:30 21:00 22:52 D-Dimer, Quantitative (0.0-500.0) ng/mL Sodium (140-148) mmol/L Potassium (3.6-5.2) mmol/L Chloride (100-108) mmol/L Carbon Dioxide (21-32) mmol/L Anion Gap (5.0-14.0) mmol/L BUN (7-18) mg/dL Creatinine (0.6-1.0) mg/dL Est Cr Clr Drug Dosing mL/min Estimated GFR (MDRD) (>60) Glucose (74-106) mg/dL POC Glucose 344 H 431 H 270 H (74-106) MG/DL Calcium (8.5-10.1) mg/dL C-Reactive Protein (0.0-0.3) mg/dL 04/09/20 04/09/20 04/09/20 Range/Units 05:54 05:54 05:54 D-Dimer, Quantitative 939.98 H (0.0-500.0) ng/mL Sodium 145 (140-148) mmol/L Potassium 5.1 (3.6-5.2) mmol/L Chloride 111 H (100-108) mmol/L Carbon Dioxide 35 H (21-32) mmol/L Anion Gap 4.1 L (5.0-14.0) mmol/L BUN 62 H (7-18) mg/dL Creatinine 0.9 (0.6-1.0) mg/dL Est Cr Clr Drug Dosing 44.03 mL/min Estimated GFR (MDRD) > 60 (>60) Glucose 115 H (74-106) mg/dL POC Glucose (74-106) MG/DL Calcium 8.3 L (8.5-10.1) mg/dL C-Reactive Protein 0.53 H (0.0-0.3) mg/dL 04/09/20 04/09/20 Range/Units 07:30 11:30 D-Dimer, Quantitative (0.0-500.0) ng/mL Sodium (140-148) mmol/L Potassium (3.6-5.2) mmol/L Chloride (100-108) mmol/L Carbon Dioxide (21-32) mmol/L Anion Gap (5.0-14.0) mmol/L BUN (7-18) mg/dL Creatinine (0.6-1.0) mg/dL Est Cr Clr Drug Dosing mL/min Estimated GFR (MDRD) (>60) Glucose (74-106) mg/dL POC Glucose 136 H 291 H (74-106) MG/DL Calcium (8.5-10.1) mg/dL C-Reactive Protein (0.0-0.3) mg/dL Med Orders - Current: Current Medications Acetaminophen (Tylenol) 650 mg PO Q4H PRN PRN Reason: Pain (Mild 1-3)/fever Hydrocodone Bitart/Acetaminophen ([place] 325-5 Mg) 1 tab PO Q4H PRN PRN Reason: Pain (moderate 4-6) Last Admin: 04/08/20 03:29 Dose: 1 tab Documented by: Albuterol (Ventolin Hfa) 0 gm INH Q2H PRN PRN Reason: Dyspnea Albuterol/Ipratropium (Combivent Respimat) 0 gm INH QIDRT [facility] Last Admin: 04/09/20 11:11 Dose: 2 inhalation Documented by: Benzocaine/Menthol (Cepacol Sore Throat) 1 lozenge MUCMEM 5XDAY PRN PRN Reason: Sore Throat Last Admin: 04/03/20 17:53 Dose: 1 janae Documented by: Benzonatate (Tessalon Perles) 100 mg PO TID PRN PRN Reason: Cough Carvedilol (Coreg) 6.25 mg PO BIDMEALS [facility] Last Admin: 04/09/20 07:37 Dose: 6.25 mg Documented by: Dexamethasone (Dexamethasone) 4 mg PO DAILY@0800 [facility] Last Admin: 04/09/20 07:41 Dose: 4 mg Documented by: Dextrose (Glutose 15) 15 gm PO ONETIME PRN PRN Reason: Hypoglycemia Dextrose/Water (Dextrose 50% In Water) 50 ml IVPUSH ASDIRECTED PRN PRN Reason: Hypoglycemia Diclofenac Sodium (Voltaren 1% Gel) 0 gm TOP QID [facility] Last Admin: 04/09/20 09:45 Dose: 1 applic Documented by: Diphenhydramine HCl (Benadryl) 25 mg PO Q6H PRN PRN Reason: Itching Last Admin: 03/29/20 04:12 Dose: 25 mg Documented by: Enoxaparin Sodium (Lovenox) 80 mg SUBCUT Q24H [facility] Last Admin: 04/09/20 03:43 Dose: 80 mg Documented by: Fluticasone Propionate (Flonase) 0 gm YASMINE DAILY [facility] Last Admin: 04/09/20 09:42 Dose: 2 spray Documented by: Gabapentin (Neurontin) 300 mg PO TID [facility] Last Admin: 04/09/20 13:23 Dose: 300 mg Documented by: Glucagon (Glucagen) 1 mg IM ASDIRECTED PRN PRN Reason: Hypoglycemia Guaifenesin (Mucinex) 600 mg PO BID [facility] Last Admin: 04/09/20 09:34 Dose: 600 mg Documented by: Guaifenesin/Dextromethorphan (Robitussin Dm) 10 ml PO Q6H PRN PRN Reason: Cough Insulin Human Lispro (Humalog) 0 unit SUBCUT QIDACANDBED [facility]; Protocol Last Admin: 04/09/20 11:35 Dose: 6 units Documented by: Losartan Potassium (Cozaar) 50 mg PO DAILY [facility] Last Admin: 04/09/20 09:34 Dose: 50 mg Documented by: Magnesium Oxide (Magnesium Oxide) 400 mg PO TID [facility] Last Admin: 04/09/20 13:23 Dose: 400 mg Documented by: Mometasone Furoate (Asmanex Hfa 200mcg) 0 gm INH BIDRT [facility] Last Admin: 04/09/20 07:20 Dose: 2 inhalation Documented by: Nystatin (Nystop) 0 gm TOP QID [facility] Last Admin: 04/09/20 09:43 Dose: Not Given Documented by: Ondansetron HCl (Zofran) 4 mg IV Q4H PRN PRN Reason: Nausea/Vomiting Pantoprazole Sodium (Protonix) 40 mg PO ACBREAKFAST [facility] Last Admin: 04/09/20 07:42 Dose: 40 mg Documented by: Polyethylene Glycol (Miralax) 17 gm PO DAILY PRN PRN Reason: Constipation Ropinirole HCl 0.5 mg/ (Ropinirole HCl 1 mg) 1.5 mg PO BID@0900,1800 [facility] Last Admin: 04/09/20 09:37 Dose: 1.5 mg Documented by: Sodium Chloride (Saline Flush) 10 ml FLUSH ASDIRECTED PRN PRN Reason: Keep Vein Open Discontinued Medications Hydrocodone Bitart/Acetaminophen ([place] 325-5 Mg) 1 tab PO Q6H PRN PRN Reason: Pain (moderate 4-6) Last Admin: 03/29/20 14:04 Dose: 1 tab Documented by: Albuterol (Ventolin Hfa) 2 gm INH ONETIME ONE Stop: 03/29/20 00:29 Last Admin: 03/29/20 00:59 Dose: 2 inh Documented by: Albuterol/Ipratropium (Combivent Respimat) 0 gm INH QID [facility] Last Admin: 03/29/20 05:24 Dose: 2 puff Documented by: Carvedilol (Coreg) 3.125 mg PO BIDMEALS [facility] Last Admin: 04/06/20 07:56 Dose: 3.125 mg Documented by: Dexamethasone (Decadron) 6 mg IVPUSH ONETIME ONE Stop: 03/29/20 00:32 Last Admin: 03/29/20 00:59 Dose: 6 mg Documented by: Dexamethasone (Decadron) 4 mg IVPUSH Q12H [facility] Stop: 04/08/20 01:01 Dexamethasone (Decadron) 6 mg IVPUSH Q24H [facility] Stop: 04/07/20 03:16 Dexamethasone (Decadron) 6 mg IVPUSH Q24H [facility] Stop: 04/08/20 01:01 Last Admin: 03/30/20 00:28 Dose: 6 mg Documented by: Dexamethasone (Decadron) 4 mg IVPUSH Q12H [facility] Stop: 04/08/20 21:01 Last Admin: 03/31/20 08:20 Dose: 4 mg Documented by: Dexamethasone (Dexamethasone) 4 mg PO BID [facility] Last Admin: 04/08/20 09:25 Dose: 4 mg Documented by: Diclofenac Sodium (Voltaren 1% Gel) 4 gm TOP QID [facility] Last Admin: 03/29/20 05:24 Dose: Not Given Documented by: Enoxaparin Sodium (Lovenox) 80 mg SUBCUT BEDTIME [facility] Last Admin: 03/29/20 04:35 Dose: Not Given Documented by: Furosemide (Lasix) 20 mg IVPUSH ONETIME ONE Stop: 03/31/20 06:24 Last Admin: 03/31/20 08:24 Dose: 20 mg Documented by: Furosemide (Lasix) 40 mg IVPUSH ONETIME ONE Stop: 04/04/20 08:02 Last Admin: 04/04/20 08:35 Dose: 40 mg Documented by: Furosemide (Lasix) 40 mg IVPUSH NOW ONE Stop: 04/06/20 13:01 Furosemide (Lasix) 40 mg PO ONETIME ONE Stop: 04/06/20 12:56 Last Admin: 04/06/20 13:11 Dose: 40 mg Documented by: Furosemide (Lasix) 60 mg PO ONETIME ONE Stop: 04/09/20 11:46 Last Admin: 04/09/20 12:25 Dose: 60 mg Documented by: Sodium Chloride (Normal Saline) 1,000 mls @ 100 mls/hr IV ASDIRECTED [facility] Remdesivir 200 mg/ Sodium (Chloride) 250 mls @ 250 mls/hr IV ONETIME ONE Stop: 03/29/20 02:38 Last Admin: 03/29/20 04:55 Dose: 250 mls/hr Documented by: Remdesivir 100 mg/ Sodium (Chloride) 100 mls @ 100 mls/hr IV Q24H [facility] Stop: 04/02/20 03:59 Last Admin: 04/02/20 03:54 Dose: 100 mls/hr Documented by: Insulin Human Lispro (Humalog) 0 unit SUBCUT QIDACANDBED [facility]; Protocol Last Admin: 04/03/20 19:47 Dose: Not Given Documented by: Insulin Human Lispro (Humalog) 10 unit SUBCUT ONETIME ONE Stop: 04/03/20 18:23 Last Admin: 04/03/20 18:27 Dose: 10 unit Documented by: Lorazepam (Ativan) 0.5 mg IVPUSH ONETIME ONE Stop: 03/29/20 02:34 Last Admin: 03/29/20 02:46 Dose: 0.5 mg Documented by: Methylprednisolone Sodium Succinate (Solu-Medrol) 62.5 mg IVPUSH Q8H [facility] Last Admin: 04/04/20 11:49 Dose: 62.5 mg Documented by: Ropinirole HCl (Requip) 1.5 mg PO BID [facility] Last Admin: 03/29/20 09:43 Dose: 1.5 mg Documented by: Ropinirole HCl 0.5 mg/ (Ropinirole HCl 1 mg) 1.5 mg PO BID [facility] Stop: 04/04/20 10:00 Last Admin: 04/04/20 08:00 Dose: 1.5 mg Documented by: - Exam Quality Assessment: Supplemental Oxygen, DVT Prophylaxis General: Alert, Oriented, Cooperative, No Acute Distress HEENT: Pupils Equal, Pupils Reactive Lungs: Clear to Auscultation, Normal Respiratory Effort Cardiovascular: Regular Rate, Regular Rhythm GI/Abdominal Exam: Normal Bowel Sounds Sepsis Event Note - Evaluation Sepsis Screening Result: No Definite Risk - Focused Exam Vital Signs: Vital Signs Temp Temp Pulse Pulse Resp BP BP 04/09/20 13:17 04/09/20 11:00 97.3 F 60 14 162/49 H 04/09/20 09:34 129/47 L 04/09/20 07:50 04/09/20 07:37 64 129/47 L 04/09/20 07:00 96.4 F L 64 14 129/47 L 04/09/20 03:49 98.8 F 71 18 165/50 H Pulse Ox 04/09/20 13:17 95 04/09/20 11:00 95 04/09/20 09:34 04/09/20 07:50 93 L 04/09/20 07:37 04/09/20 07:00 90 L 04/09/20 03:49 91 L - Problem List Review Problem List Initiated/Reviewed/Updated: Yes - Plan Plan:: ASSESSMENT AND PLAN COVID-19 PNEUMONIA-Complicated by acute respiratory failure with hypoxia. Stable but still significantly compromised. Slow improvement in respiratory status -Remdesivir complete -Continue steroids below (day 12), decrease dose of Decadron to 4 mg daily -Convalescent plasma daily x3 days complete -Therapeutic dose of Lovenox 80 mg subcu daily, secondary to Covid infection and history of previous deep vein thrombosis HYPOXIC AND HYPERCAPNIC RESPIRATORY FAILURE-acute on chronic. Secondary to COVID-19 and underlying COPD. -Supplemental oxygen as needed - Wean as able COPD EXACERBATION-secondary to Covid infection. Wheezing has resolved and shortness of breath is better. -transition to dexamethasone 4 mg once daily -Albuterol inhaler every 2 hours as needed -Mometasone inhaler twice daily -Combivent inhaler 4 times daily ACUTE KIDNEY INJURY-Baseline creatinine in the range of 1.1. -Recheck labs in the morning -Closely monitor renal function and urine output TYPE 2 DIABETES MELLITUS-currently on no active medical therapy. Blood sugars moderately elevated with steroid use but improving with supplemental insulin. -4 times daily glucometers -Medium-dose sliding scale Humalog MAINTENANCE ISSUES -DVT prophylaxis; enoxaparin -GI prophylaxis; PPI -Villeda catheter; not indicated -Nutrition; regular diet CODE STATUS-DNR/DNI DISPOSITION-anticipate discharge to home with [facility] after the hospital stay if she survives the hospital stay
[2020-04-10] MEDS: Enoxaparin 80 MG/0.8 ML Syringe SUBCUT SCH (03:08)
[2020-04-10] MEDS: Nystatin Topical Powder 15 GM Bottle TOP SCH ×4 (06:19→21:00)
[2020-04-10] MEDS: Diclofenac Sodium 1% Gel 100 GM Tube TOP SCH ×4 (06:19→21:00)
[2020-04-10] MEDS: Mometasone Furoate HFA 200 mcg/Puff 13 GM Inhaler INH SCH ×2 (07:14→20:57)
[2020-04-10] MEDS: Albuterol/Ipratropium 4 GM Inhalation Spray INH SCH ×4 (07:14→20:57)
[2020-04-10] MEDS: Dexamethasone 2 MG Tab PO SCH (07:23)
[2020-04-10] MEDS: Pantoprazole 40 MG Tab.CR PO SCH (07:23)
[2020-04-10] MEDS: Insulin Lispro 100 Unit/ML 3 ML KwikPen SUBCUT SCH ×4 (07:24→20:58)
[2020-04-10] MEDS: Carvedilol 3.125 MG Tab PO SCH ×2 (07:25→18:09)
[2020-04-10] MEDS: Fluticasone Propionate Nasal Spray 16 GM Bottle NAS SCH (08:28)
[2020-04-10] MEDS: Gabapentin 300 MG Cap PO SCH ×3 (08:29→20:59)
[2020-04-10] MEDS: ROPINIROLE PO SCH ×4 (08:29→18:13)
[2020-04-10] MEDS: Losartan 50 MG Tab PO SCH (08:30)
[2020-04-10] MEDS: guaiFENesin 600 MG Tab.ER PO SCH ×2 (08:30→20:59)
[2020-04-10] MEDS: Magnesium Oxide 400 MG Tab PO SCH ×3 (08:31→20:59)
[2020-04-10] MEDS: Furosemide 40 MG Tab PO SCH ×2 (09:39→13:11)
[2020-04-10] MEDS: Acetaminophen/HYDROcodone 325-5 MG Tab PO PRN (11:52)
--- NOTE | 2020-04-10 12:49 | PCM.PN ---
- General Info Date of Service: 04/10/20 Subjective Update: Patient was able to get down to about 6 L yesterday for a brief time, but then had to go back up to 10 L NC She has had considerably good response to diuresis Generally states she is feeling better Functional Status: Reports: Pain Controlled, Tolerating Diet, Urinating. Denies: New Symptoms - Review of Systems General: Reports: No Symptoms HEENT: Reports: No Symptoms Pulmonary: Reports: No Symptoms Cardiovascular: Reports: No Symptoms Gastrointestinal: Reports: No Symptoms Musculoskeletal: Reports: No Symptoms - Patient Data Vitals - Most Recent: Last Vital Signs Temp 97.1 F 04/10/20 11:57 Pulse 68 04/10/20 11:57 Resp 18 04/10/20 11:57 BP 139/54 L 04/10/20 11:57 Pulse Ox 94 L 04/10/20 12:22 Weight - Most Recent: 166 lb 1.6 oz I&O - Last 24 Hours: Intake & Output 04/09/20 04/10/20 04/10/20 22:59 06:59 14:59 Intake Total 1450 780 Output Total 300 400 900 Balance 1150 -400 -120 Lab Results Last 24 Hours: Laboratory Results - last 24 hr 04/09/20 04/09/20 04/10/20 Range/Units 16:30 21:00 05:06 WBC 7.3 (4.5-11.0) K/uL RBC 4.19 (3.30-5.50) M/uL Hgb 11.3 L (12.0-15.0) g/dL Hct 38.1 (36.0-48.0) % MCV 91 (80-98) fL MCH 27 (27-31) pg MCHC 30 L (32-36) % Plt Count 68 L (150-400) K/uL Neut % (Auto) 91 H (36-66) % Lymph % (Auto) 5 L (24-44) % [place] % (Auto) 4 (2-6) % Eos % (Auto) 0 L (2-4) % Baso % (Auto) 0 (0-1) % Sodium (140-148) mmol/L Potassium (3.6-5.2) mmol/L Chloride (100-108) mmol/L Carbon Dioxide (21-32) mmol/L Anion Gap (5.0-14.0) mmol/L BUN (7-18) mg/dL Creatinine (0.6-1.0) mg/dL Est Cr Clr Drug Dosing mL/min Estimated GFR (MDRD) (>60) Glucose (74-106) mg/dL POC Glucose 341 H 235 H (74-106) MG/DL Calcium (8.5-10.1) mg/dL Total Bilirubin (0.2-1.0) mg/dL AST (15-37) U/L ALT (12-78) U/L Alkaline Phosphatase (46-116) U/L Total Protein (6.4-8.2) g/dL Albumin (3.4-5.0) g/dL Globulin (2.3-3.5) g/dL Albumin/Globulin Ratio (1.2-2.2) 04/10/20 04/10/20 04/10/20 Range/Units 05:06 07:20 11:30 WBC (4.5-11.0) K/uL RBC (3.30-5.50) M/uL Hgb (12.0-15.0) g/dL Hct (36.0-48.0) % MCV (80-98) fL MCH (27-31) pg MCHC (32-36) % Plt Count (150-400) K/uL Neut % (Auto) (36-66) % Lymph % (Auto) (24-44) % [place] % (Auto) (2-6) % Eos % (Auto) (2-4) % Baso % (Auto) (0-1) % Sodium 147 (140-148) mmol/L Potassium 5.0 (3.6-5.2) mmol/L Chloride 111 H (100-108) mmol/L Carbon Dioxide 35 H (21-32) mmol/L Anion Gap 6.0 (5.0-14.0) mmol/L BUN 62 H (7-18) mg/dL Creatinine 1.1 H (0.6-1.0) mg/dL Est Cr Clr Drug Dosing 36.02 mL/min Estimated GFR (MDRD) 49 L (>60) Glucose 151 H (74-106) mg/dL POC Glucose 165 H 212 H (74-106) MG/DL Calcium 8.1 L (8.5-10.1) mg/dL Total Bilirubin 0.7 (0.2-1.0) mg/dL AST 29 (15-37) U/L ALT 36 D (12-78) U/L Alkaline Phosphatase 64 (46-116) U/L Total Protein 5.5 L (6.4-8.2) g/dL Albumin 1.7 L (3.4-5.0) g/dL Globulin 3.8 H (2.3-3.5) g/dL Albumin/Globulin Ratio 0.5 L (1.2-2.2) Med Orders - Current: Current Medications Acetaminophen (Tylenol) 650 mg PO Q4H PRN PRN Reason: Pain (Mild 1-3)/fever Hydrocodone Bitart/Acetaminophen ([place] 325-5 Mg) 1 tab PO Q4H PRN PRN Reason: Pain (moderate 4-6) Last Admin: 04/10/20 11:52 Dose: 1 tab Documented by: Albuterol (Ventolin Hfa) 0 gm INH Q2H PRN PRN Reason: Dyspnea Albuterol/Ipratropium (Combivent Respimat) 0 gm INH QIDRT [facility] Last Admin: 04/10/20 10:59 Dose: 2 inhalation Documented by: Apixaban (Eliquis) 2.5 mg PO BID [facility] Benzocaine/Menthol (Cepacol Sore Throat) 1 lozenge MUCMEM 5XDAY PRN PRN Reason: Sore Throat Last Admin: 04/03/20 17:53 Dose: 1 janae Documented by: Benzonatate (Tessalon Perles) 100 mg PO TID PRN PRN Reason: Cough Carvedilol (Coreg) 6.25 mg PO BIDMEALS [facility] Last Admin: 04/10/20 07:25 Dose: 6.25 mg Documented by: Dexamethasone (Dexamethasone) 4 mg PO DAILY@0800 [facility] Last Admin: 04/10/20 07:23 Dose: 4 mg Documented by: Dextrose (Glutose 15) 15 gm PO ONETIME PRN PRN Reason: Hypoglycemia Dextrose/Water (Dextrose 50% In Water) 50 ml IVPUSH ASDIRECTED PRN PRN Reason: Hypoglycemia Diclofenac Sodium (Voltaren 1% Gel) 0 gm TOP QID [facility] Last Admin: 04/10/20 09:40 Dose: 1 applic Documented by: Diphenhydramine HCl (Benadryl) 25 mg PO Q6H PRN PRN Reason: Itching Last Admin: 03/29/20 04:12 Dose: 25 mg Documented by: Fluticasone Propionate (Flonase) 0 gm YASMINE DAILY [facility] Last Admin: 04/10/20 08:28 Dose: 2 spray Documented by: Furosemide (Lasix) 40 mg PO BIDDIURETIC [facility] Last Admin: 04/10/20 09:39 Dose: 40 mg Documented by: Gabapentin (Neurontin) 300 mg PO TID [facility] Last Admin: 04/10/20 08:29 Dose: 300 mg Documented by: Glucagon (Glucagen) 1 mg IM ASDIRECTED PRN PRN Reason: Hypoglycemia Guaifenesin (Mucinex) 600 mg PO BID [facility] Last Admin: 04/10/20 08:30 Dose: 600 mg Documented by: Guaifenesin/Dextromethorphan (Robitussin Dm) 10 ml PO Q6H PRN PRN Reason: Cough Insulin Human Lispro (Humalog) 0 unit SUBCUT QIDACANDBED [facility]; Protocol Last Admin: 04/10/20 11:50 Dose: 4 units Documented by: Losartan Potassium (Cozaar) 50 mg PO DAILY [facility] Last Admin: 04/10/20 08:30 Dose: 50 mg Documented by: Magnesium Oxide (Magnesium Oxide) 400 mg PO TID [facility] Last Admin: 04/10/20 08:31 Dose: 400 mg Documented by: Mometasone Furoate (Asmanex Hfa 200mcg) 0 gm INH BIDRT [facility] Last Admin: 04/10/20 07:14 Dose: 2 inhalation Documented by: Nystatin (Nystop) 0 gm TOP QID [facility] Last Admin: 04/10/20 09:41 Dose: 1 applic Documented by: Ondansetron HCl (Zofran) 4 mg IV Q4H PRN PRN Reason: Nausea/Vomiting Pantoprazole Sodium (Protonix) 40 mg PO ACBREAKFAST [facility] Last Admin: 04/10/20 07:23 Dose: 40 mg Documented by: Polyethylene Glycol (Miralax) 17 gm PO DAILY PRN PRN Reason: Constipation Ropinirole HCl 0.5 mg/ (Ropinirole HCl 1 mg) 1.5 mg PO BID@0900,1800 [facility] Last Admin: 04/10/20 08:29 Dose: 1.5 mg Documented by: Sodium Chloride (Saline Flush) 10 ml FLUSH ASDIRECTED PRN PRN Reason: Keep Vein Open Discontinued Medications Hydrocodone Bitart/Acetaminophen ([place] 325-5 Mg) 1 tab PO Q6H PRN PRN Reason: Pain (moderate 4-6) Last Admin: 03/29/20 14:04 Dose: 1 tab Documented by: Albuterol (Ventolin Hfa) 2 gm INH ONETIME ONE Stop: 03/29/20 00:29 Last Admin: 03/29/20 00:59 Dose: 2 inh Documented by: Albuterol/Ipratropium (Combivent Respimat) 0 gm INH QID [facility] Last Admin: 03/29/20 05:24 Dose: 2 puff Documented by: Carvedilol (Coreg) 3.125 mg PO BIDMEALS [facility] Last Admin: 04/06/20 07:56 Dose: 3.125 mg Documented by: Dexamethasone (Decadron) 6 mg IVPUSH ONETIME ONE Stop: 03/29/20 00:32 Last Admin: 03/29/20 00:59 Dose: 6 mg Documented by: Dexamethasone (Decadron) 4 mg IVPUSH Q12H [facility] Stop: 04/08/20 01:01 Dexamethasone (Decadron) 6 mg IVPUSH Q24H [facility] Stop: 04/07/20 03:16 Dexamethasone (Decadron) 6 mg IVPUSH Q24H [facility] Stop: 04/08/20 01:01 Last Admin: 03/30/20 00:28 Dose: 6 mg Documented by: Dexamethasone (Decadron) 4 mg IVPUSH Q12H [facility] Stop: 04/08/20 21:01 Last Admin: 03/31/20 08:20 Dose: 4 mg Documented by: Dexamethasone (Dexamethasone) 4 mg PO BID [facility] Last Admin: 04/08/20 09:25 Dose: 4 mg Documented by: Diclofenac Sodium (Voltaren 1% Gel) 4 gm TOP QID [facility] Last Admin: 03/29/20 05:24 Dose: Not Given Documented by: Enoxaparin Sodium (Lovenox) 80 mg SUBCUT BEDTIME [facility] Last Admin: 03/29/20 04:35 Dose: Not Given Documented by: Enoxaparin Sodium (Lovenox) 80 mg SUBCUT Q24H [facility] Last Admin: 04/10/20 03:08 Dose: 80 mg Documented by: Furosemide (Lasix) 20 mg IVPUSH ONETIME ONE Stop: 03/31/20 06:24 Last Admin: 03/31/20 08:24 Dose: 20 mg Documented by: Furosemide (Lasix) 40 mg IVPUSH ONETIME ONE Stop: 04/04/20 08:02 Last Admin: 04/04/20 08:35 Dose: 40 mg Documented by: Furosemide (Lasix) 40 mg IVPUSH NOW ONE Stop: 04/06/20 13:01 Furosemide (Lasix) 40 mg PO ONETIME ONE Stop: 04/06/20 12:56 Last Admin: 04/06/20 13:11 Dose: 40 mg Documented by: Furosemide (Lasix) 60 mg PO ONETIME ONE Stop: 04/09/20 11:46 Last Admin: 04/09/20 12:25 Dose: 60 mg Documented by: Sodium Chloride (Normal Saline) 1,000 mls @ 100 mls/hr IV ASDIRECTED [facility] Remdesivir 200 mg/ Sodium (Chloride) 250 mls @ 250 mls/hr IV ONETIME ONE Stop: 03/29/20 02:38 Last Admin: 03/29/20 04:55 Dose: 250 mls/hr Documented by: Remdesivir 100 mg/ Sodium (Chloride) 100 mls @ 100 mls/hr IV Q24H [facility] Stop: 04/02/20 03:59 Last Admin: 04/02/20 03:54 Dose: 100 mls/hr Documented by: Insulin Human Lispro (Humalog) 0 unit SUBCUT QIDACANDBED [facility]; Protocol Last Admin: 04/03/20 19:47 Dose: Not Given Documented by: Insulin Human Lispro (Humalog) 10 unit SUBCUT ONETIME ONE Stop: 04/03/20 18:23 Last Admin: 04/03/20 18:27 Dose: 10 unit Documented by: Lorazepam (Ativan) 0.5 mg IVPUSH ONETIME ONE Stop: 03/29/20 02:34 Last Admin: 03/29/20 02:46 Dose: 0.5 mg Documented by: Methylprednisolone Sodium Succinate (Solu-Medrol) 62.5 mg IVPUSH Q8H [facility] Last Admin: 04/04/20 11:49 Dose: 62.5 mg Documented by: Ropinirole HCl (Requip) 1.5 mg PO BID [facility] Last Admin: 03/29/20 09:43 Dose: 1.5 mg Documented by: Ropinirole HCl 0.5 mg/ (Ropinirole HCl 1 mg) 1.5 mg PO BID [facility] Stop: 04/04/20 10:00 Last Admin: 04/04/20 08:00 Dose: 1.5 mg Documented by: - Exam Quality Assessment: Supplemental Oxygen, Urine Catheter, DVT Prophylaxis General: Alert, Oriented, Cooperative, No Acute Distress HEENT: Pupils Equal, EOMI Lungs: Normal Respiratory Effort, Rales Cardiovascular: Regular Rate, Regular Rhythm, No Murmurs GI/Abdominal Exam: Normal Bowel Sounds Sepsis Event Note - Evaluation Sepsis Screening Result: No Definite Risk - Focused Exam Vital Signs: Vital Signs Temp Pulse Pulse Resp BP BP Pulse Ox 04/10/20 12:22 94 L 04/10/20 11:57 97.1 F 68 18 139/54 L 91 L 04/10/20 08:30 161/48 H 04/10/20 07:38 90 L 04/10/20 07:25 66 161/48 H 04/10/20 07:00 97.7 F 66 18 161/48 H 91 L 04/10/20 03:00 98.6 F 67 18 162/49 H 90 L 04/10/20 01:00 91 L - Problem List Review Problem List Initiated/Reviewed/Updated: Yes - My Orders Last 24 Hours: My Active Orders 04/10/20 08:55 Furosemide [Lasix] 40 mg PO BIDDIURETIC 04/10/20 08:56 CXR [Chest 2V] [CR] Routine 04/11/20 05:00 CBC WITH AUTO DIFF [HEME] DAILY COMPREHENSIVE METABOLIC PN,CMP [CHEM] DAILY 04/12/20 05:00 CBC WITH AUTO DIFF [HEME] DAILY COMPREHENSIVE METABOLIC PN,CMP [CHEM] DAILY - Plan Plan:: ASSESSMENT AND PLAN COVID-19 PNEUMONIA-Complicated by acute respiratory failure with hypoxia. Stable but still significantly compromised. Slow improvement in respiratory st atus -Remdesivir complete -Continue steroids below (day 13), decrease dose of Decadron to 4 mg daily -Convalescent plasma daily x3 days complete -Therapeutic dose of Lovenox 80 mg subcu daily, secondary to Covid infection and history of previous deep vein thrombosis -Patient tolerating diuresis well with her only being +1450 mL for the 04/10 shifts. -Start lasix 40 mg po bid for 1-2 days to continue diuresis - Monitor I&O closely - Monitor Creatinine with daily labs HYPOXIC AND HYPERCAPNIC RESPIRATORY FAILURE-acute on chronic. Secondary to COVID-19 and underlying COPD. -Supplemental oxygen as needed - Wean as able COPD EXACERBATION-secondary to Covid infection. Wheezing has resolved and shortness of breath is better. -transition to dexamethasone 4 mg once daily -Albuterol inhaler every 2 hours as needed -Mometasone inhaler twice daily -Combivent inhaler 4 times daily ACUTE KIDNEY INJURY-Baseline creatinine in the range of 1.1. -Recheck labs in the morning -Closely monitor renal function and urine output TYPE 2 DIABETES MELLITUS-currently on no active medical therapy. Blood sugars moderately elevated with steroid use but improving with supplemental insulin. -4 times daily glucometers -Medium-dose sliding scale Humalog MAINTENANCE ISSUES -DVT prophylaxis; enoxaparin -GI prophylaxis; PPI -Villeda catheter; not indicated -Nutrition; regular diet CODE STATUS-DNR/DNI DISPOSITION-anticipate discharge to home with [facility] after the hospital stay if she survives the hospital stay
[2020-04-11] MEDS: Nystatin Topical Powder 15 GM Bottle TOP SCH ×4 (07:27→21:16)
[2020-04-11] MEDS: Diclofenac Sodium 1% Gel 100 GM Tube TOP SCH ×4 (07:28→21:16)
[2020-04-11] MEDS: Mometasone Furoate HFA 200 mcg/Puff 13 GM Inhaler INH SCH ×2 (07:50→21:13)
[2020-04-11] MEDS: Albuterol/Ipratropium 4 GM Inhalation Spray INH SCH ×4 (07:51→21:14)
[2020-04-11] MEDS: Dexamethasone 2 MG Tab PO SCH (08:59)
[2020-04-11] MEDS: Furosemide 40 MG Tab PO SCH ×2 (08:59→13:41)
[2020-04-11] MEDS: guaiFENesin 600 MG Tab.ER PO SCH ×2 (08:59→21:15)
[2020-04-11] MEDS: Carvedilol 3.125 MG Tab PO SCH ×2 (08:59→17:12)
[2020-04-11] MEDS: Gabapentin 300 MG Cap PO SCH ×3 (08:59→21:15)
[2020-04-11] MEDS: Losartan 50 MG Tab PO SCH (09:00)
[2020-04-11] MEDS: Pantoprazole 40 MG Tab.CR PO SCH (09:00)
[2020-04-11] MEDS: ROPINIROLE PO SCH ×4 (09:00→17:12)
[2020-04-11] MEDS: Apixaban 2.5 MG Tab PO SCH ×2 (09:00→21:15)
[2020-04-11] MEDS: Magnesium Oxide 400 MG Tab PO SCH ×3 (09:01→21:15)
[2020-04-11] MEDS: Fluticasone Propionate Nasal Spray 16 GM Bottle NAS SCH (09:01)
[2020-04-11] MEDS: Insulin Lispro 100 Unit/ML 3 ML KwikPen SUBCUT SCH ×4 (09:02→21:12)
--- NOTE | 2020-04-11 13:37 | PCM.PN ---
- General Info Date of Service: 04/11/20 Subjective Update: Patient was able to get down to about 6 L on 04/10. The patient at this time is fluctuating between 6-10 L, more with activity Functional Status: Reports: Pain Controlled, Tolerating Diet, Ambulating, Urinating. Denies: New Symptoms - Review of Systems General: Reports: No Symptoms HEENT: Reports: No Symptoms Pulmonary: Reports: No Symptoms Cardiovascular: Reports: No Symptoms Gastrointestinal: Reports: No Symptoms - Patient Data Vitals - Most Recent: Last Vital Signs Temp 97.5 F 04/11/20 11:22 Pulse 63 04/11/20 11:22 Resp 16 04/11/20 11:22 BP 155/52 H 04/11/20 11:22 Pulse Ox 97 04/11/20 12:58 Weight - Most Recent: 168 lb I&O - Last 24 Hours: Intake & Output 04/10/20 04/11/20 04/11/20 22:59 06:59 14:59 Intake Total 600 500 Output Total 400 1000 300 Balance 200 -1000 200 Lab Results Last 24 Hours: Laboratory Results - last 24 hr 04/10/20 04/10/20 04/11/20 Range/Units 16:30 21:00 05:00 WBC 6.7 (4.5-11.0) K/uL RBC 3.96 (3.30-5.50) M/uL Hgb 10.4 L (12.0-15.0) g/dL Hct 35.9 L (36.0-48.0) % MCV 91 (80-98) fL MCH 26 L (27-31) pg MCHC 29 L (32-36) % Plt Count 67 L (150-400) K/uL Neut % (Auto) 91 H (36-66) % Lymph % (Auto) 5 L (24-44) % Benzie % (Auto) 4 (2-6) % Eos % (Auto) 0 L (2-4) % Baso % (Auto) 0 (0-1) % Sodium (140-148) mmol/L Potassium (3.6-5.2) mmol/L Chloride (100-108) mmol/L Carbon Dioxide (21-32) mmol/L Anion Gap (5.0-14.0) mmol/L BUN (7-18) mg/dL Creatinine (0.6-1.0) mg/dL Est Cr Clr Drug Dosing mL/min Estimated GFR (MDRD) (>60) Glucose (74-106) mg/dL POC Glucose 347 H 335 H (74-106) MG/DL Calcium (8.5-10.1) mg/dL Total Bilirubin (0.2-1.0) mg/dL AST (15-37) U/L ALT (12-78) U/L Alkaline Phosphatase (46-116) U/L Total Protein (6.4-8.2) g/dL Albumin (3.4-5.0) g/dL Globulin (2.3-3.5) g/dL Albumin/Globulin Ratio (1.2-2.2) 04/11/20 04/11/20 04/11/20 Range/Units 05:00 07:30 11:38 WBC (4.5-11.0) K/uL RBC (3.30-5.50) M/uL Hgb (12.0-15.0) g/dL Hct (36.0-48.0) % MCV (80-98) fL MCH (27-31) pg MCHC (32-36) % Plt Count (150-400) K/uL Neut % (Auto) (36-66) % Lymph % (Auto) (24-44) % Benzie % (Auto) (2-6) % Eos % (Auto) (2-4) % Baso % (Auto) (0-1) % Sodium 145 (140-148) mmol/L Potassium 5.1 (3.6-5.2) mmol/L Chloride 109 H (100-108) mmol/L Carbon Dioxide 34 H (21-32) mmol/L Anion Gap 7.1 (5.0-14.0) mmol/L BUN 60 H (7-18) mg/dL Creatinine 1.0 (0.6-1.0) mg/dL Est Cr Clr Drug Dosing 39.63 mL/min Estimated GFR (MDRD) 54 L (>60) Glucose 134 H (74-106) mg/dL POC Glucose 210 H 236 H (74-106) MG/DL Calcium 8.0 L (8.5-10.1) mg/dL Total Bilirubin 0.6 (0.2-1.0) mg/dL AST 29 (15-37) U/L ALT 38 (12-78) U/L Alkaline Phosphatase 68 (46-116) U/L Total Protein 5.4 L (6.4-8.2) g/dL Albumin 1.6 L (3.4-5.0) g/dL Globulin 3.8 H (2.3-3.5) g/dL Albumin/Globulin Ratio 0.4 L (1.2-2.2) Med Orders - Current: Current Medications Acetaminophen (Tylenol) 650 mg PO Q4H PRN PRN Reason: Pain (Mild 1-3)/fever Hydrocodone Bitart/Acetaminophen ([place] 325-5 Mg) 1 tab PO Q4H PRN PRN Reason: Pain (moderate 4-6) Last Admin: 04/10/20 11:52 Dose: 1 tab Documented by: Albuterol (Ventolin Hfa) 0 gm INH Q2H PRN PRN Reason: Dyspnea Albuterol/Ipratropium (Combivent Respimat) 0 gm INH QIDRT [facility] Last Admin: 04/11/20 11:03 Dose: 2 inhalation Documented by: Apixaban (Eliquis) 2.5 mg PO BID [facility] Last Admin: 04/11/20 09:00 Dose: 2.5 mg Documented by: Benzocaine/Menthol (Cepacol Sore Throat) 1 lozenge MUCMEM 5XDAY PRN PRN Reason: Sore Throat Last Admin: 04/03/20 17:53 Dose: 1 janae Documented by: Benzonatate (Tessalon Perles) 100 mg PO TID PRN PRN Reason: Cough Carvedilol (Coreg) 6.25 mg PO BIDMEALS [facility] Last Admin: 04/11/20 08:59 Dose: 6.25 mg Documented by: Dexamethasone (Dexamethasone) 4 mg PO DAILY@0800 [facility] Last Admin: 04/11/20 08:59 Dose: 4 mg Documented by: Dextrose (Glutose 15) 15 gm PO ONETIME PRN PRN Reason: Hypoglycemia Dextrose/Water (Dextrose 50% In Water) 50 ml IVPUSH ASDIRECTED PRN PRN Reason: Hypoglycemia Diclofenac Sodium (Voltaren 1% Gel) 0 gm TOP QID [facility] Last Admin: 04/11/20 09:01 Dose: Not Given Documented by: Diphenhydramine HCl (Benadryl) 25 mg PO Q6H PRN PRN Reason: Itching Last Admin: 03/29/20 04:12 Dose: 25 mg Documented by: Fluticasone Propionate (Flonase) 0 gm YASMINE DAILY [facility] Last Admin: 04/11/20 09:01 Dose: Not Given Documented by: Furosemide (Lasix) 40 mg PO BIDDIURETIC [facility] Last Admin: 04/11/20 08:59 Dose: 40 mg Documented by: Gabapentin (Neurontin) 300 mg PO TID [facility] Last Admin: 04/11/20 08:59 Dose: 300 mg Documented by: Glucagon (Glucagen) 1 mg IM ASDIRECTED PRN PRN Reason: Hypoglycemia Guaifenesin (Mucinex) 600 mg PO BID [facility] Last Admin: 04/11/20 08:59 Dose: 600 mg Documented by: Guaifenesin/Dextromethorphan (Robitussin Dm) 10 ml PO Q6H PRN PRN Reason: Cough Insulin Human Lispro (Humalog) 0 unit SUBCUT QIDACANDBED [facility]; Protocol Last Admin: 04/11/20 11:46 Dose: 4 units Documented by: Losartan Potassium (Cozaar) 50 mg PO DAILY [facility] Last Admin: 04/11/20 09:00 Dose: 50 mg Documented by: Magnesium Oxide (Magnesium Oxide) 400 mg PO TID [facility] Last Admin: 04/11/20 09:01 Dose: 400 mg Documented by: Mometasone Furoate (Asmanex Hfa 200mcg) 0 gm INH BIDRT [facility] Last Admin: 04/11/20 07:50 Dose: 2 inhalation Documented by: Nystatin (Nystop) 0 gm TOP QID [facility] Last Admin: 04/11/20 09:01 Dose: Not Given Documented by: Ondansetron HCl (Zofran) 4 mg IV Q4H PRN PRN Reason: Nausea/Vomiting Pantoprazole Sodium (Protonix) 40 mg PO ACBREAKFAST [facility] Last Admin: 04/11/20 09:00 Dose: 40 mg Documented by: Polyethylene Glycol (Miralax) 17 gm PO DAILY PRN PRN Reason: Constipation Ropinirole HCl 0.5 mg/ (Ropinirole HCl 1 mg) 1.5 mg PO BID@0900,1800 [facility] Last Admin: 04/11/20 09:00 Dose: 1.5 mg Documented by: Sodium Chloride (Saline Flush) 10 ml FLUSH ASDIRECTED PRN PRN Reason: Keep Vein Open Discontinued Medications Hydrocodone Bitart/Acetaminophen ([place]orn[place] 325-5 Mg) 1 tab PO Q6H PRN PRN Reason: Pain (moderate 4-6) Last Admin: 03/29/20 14:04 Dose: 1 tab Documented by: Albuterol (Ventolin Hfa) 2 gm INH ONETIME ONE Stop: 03/29/20 00:29 Last Admin: 03/29/20 00:59 Dose: 2 inh Documented by: Albuterol/Ipratropium (Combivent Respimat) 0 gm INH QID [facility] Last Admin: 03/29/20 05:24 Dose: 2 puff Documented by: Carvedilol (Coreg) 3.125 mg PO BIDMEALS [facility] Last Admin: 04/06/20 07:56 Dose: 3.125 mg Documented by: Dexamethasone (Decadron) 6 mg IVPUSH ONETIME ONE Stop: 03/29/20 00:32 Last Admin: 03/29/20 00:59 Dose: 6 mg Documented by: Dexamethasone (Decadron) 4 mg IVPUSH Q12H [facility] Stop: 04/08/20 01:01 Dexamethasone (Decadron) 6 mg IVPUSH Q24H [facility] Stop: 04/07/20 03:16 Dexamethasone (Decadron) 6 mg IVPUSH Q24H [facility] Stop: 04/08/20 01:01 Last Admin: 03/30/20 00:28 Dose: 6 mg Documented by: Dexamethasone (Decadron) 4 mg IVPUSH Q12H [facility] Stop: 04/08/20 21:01 Last Admin: 03/31/20 08:20 Dose: 4 mg Documented by: Dexamethasone (Dexamethasone) 4 mg PO BID [facility] Last Admin: 04/08/20 09:25 Dose: 4 mg Documented by: Diclofenac Sodium (Voltaren 1% Gel) 4 gm TOP QID [facility] Last Admin: 03/29/20 05:24 Dose: Not Given Documented by: Enoxaparin Sodium (Lovenox) 80 mg SUBCUT BEDTIME [facility] Last Admin: 03/29/20 04:35 Dose: Not Given Documented by: Enoxaparin Sodium (Lovenox) 80 mg SUBCUT Q24H [facility] Last Admin: 04/10/20 03:08 Dose: 80 mg Documented by: Furosemide (Lasix) 20 mg IVPUSH ONETIME ONE Stop: 03/31/20 06:24 Last Admin: 03/31/20 08:24 Dose: 20 mg Documented by: Furosemide (Lasix) 40 mg IVPUSH ONETIME ONE Stop: 04/04/20 08:02 Last Admin: 04/04/20 08:35 Dose: 40 mg Documented by: Furosemide (Lasix) 40 mg IVPUSH NOW ONE Stop: 04/06/20 13:01 Furosemide (Lasix) 40 mg PO ONETIME ONE Stop: 04/06/20 12:56 Last Admin: 04/06/20 13:11 Dose: 40 mg Documented by: Furosemide (Lasix) 60 mg PO ONETIME ONE Stop: 04/09/20 11:46 Last Admin: 04/09/20 12:25 Dose: 60 mg Documented by: Sodium Chloride (Normal Saline) 1,000 mls @ 100 mls/hr IV ASDIRECTED [facility] Remdesivir 200 mg/ Sodium (Chloride) 250 mls @ 250 mls/hr IV ONETIME ONE Stop: 03/29/20 02:38 Last Admin: 03/29/20 04:55 Dose: 250 mls/hr Documented by: Remdesivir 100 mg/ Sodium (Chloride) 100 mls @ 100 mls/hr IV Q24H [facility] Stop: 04/02/20 03:59 Last Admin: 04/02/20 03:54 Dose: 100 mls/hr Documented by: Insulin Human Lispro (Humalog) 0 unit SUBCUT QIDACANDBED [facility]; Protocol Last Admin: 04/03/20 19:47 Dose: Not Given Documented by: Insulin Human Lispro (Humalog) 10 unit SUBCUT ONETIME ONE Stop: 04/03/20 18:23 Last Admin: 04/03/20 18:27 Dose: 10 unit Documented by: Lorazepam (Ativan) 0.5 mg IVPUSH ONETIME ONE Stop: 03/29/20 02:34 Last Admin: 03/29/20 02:46 Dose: 0.5 mg Documented by: Methylprednisolone Sodium Succinate (Solu-Medrol) 62.5 mg IVPUSH Q8H [facility] Last Admin: 04/04/20 11:49 Dose: 62.5 mg Documented by: Ropinirole HCl (Requip) 1.5 mg PO BID [facility] Last Admin: 03/29/20 09:43 Dose: 1.5 mg Documented by: Ropinirole HCl 0.5 mg/ (Ropinirole HCl 1 mg) 1.5 mg PO BID [facility] Stop: 04/04/20 10:00 Last Admin: 04/04/20 08:00 Dose: 1.5 mg Documented by: - Exam Quality Assessment: Supplemental Oxygen, DVT Prophylaxis General: Alert, Oriented, Cooperative, No Acute Distress HEENT: Pupils Equal, EOMI Lungs: Normal Respiratory Effort, Crackles Cardiovascular: Regular Rate, Regular Rhythm, No Murmurs Sepsis Event Note - Evaluation Sepsis Screening Result: No Definite Risk - Focused Exam Vital Signs: Vital Signs Temp Temp Pulse Pulse Resp BP BP 04/11/20 12:58 04/11/20 11:22 97.5 F 63 16 155/52 H 04/11/20 09:00 147/39 H 04/11/20 08:59 57 L 147/39 H 04/11/20 07:43 04/11/20 07:05 96.5 F L 57 L 22 H 147/39 H 04/11/20 03:43 97.4 F 63 20 152/51 H 04/11/20 01:47 Pulse Ox 04/11/20 12:58 97 04/11/20 11:22 95 04/11/20 09:00 04/11/20 08:59 04/11/20 07:43 93 L 04/11/20 07:05 92 L 04/11/20 03:43 96 04/11/20 01:47 96 - Problem List Review Problem List Initiated/Reviewed/Updated: Yes - My Orders Last 24 Hours: My Active Orders 04/11/20 16:30 GLUCOSE POC LAB TO COLLECT JPM [POC] QIDACANDBED 04/11/20 21:00 GLUCOSE POC LAB TO COLLECT JPM [POC] QIDACANDBED 04/12/20 05:00 CBC WITH AUTO DIFF [HEME] DAILY COMPREHENSIVE METABOLIC PN,CMP [CHEM] DAILY 04/12/20 07:30 GLUCOSE POC LAB TO COLLECT JPM [POC] QIDACANDBED 04/12/20 11:30 GLUCOSE POC LAB TO COLLECT JPM [POC] QIDACANDBED 04/12/20 16:30 GLUCOSE POC LAB TO COLLECT JPM [POC] QIDACANDBED 04/12/20 21:00 GLUCOSE POC LAB TO COLLECT JPM [POC] QIDACANDBED 04/13/20 07:30 GLUCOSE POC LAB TO COLLECT JPM [POC] QIDACANDBED 04/13/20 11:30 GLUCOSE POC LAB TO COLLECT JPM [POC] QIDACANDBED - Plan Plan:: ASSESSMENT AND PLAN COVID-19 PNEUMONIA-Complicated by acute respiratory failure with hypoxia. Stable but still significantly compromised. Slow improvement in respiratory status -Remdesivir complete -Continue steroids below (day 14), at a dose of Decadron 4 mg daily -Convalescent plasma daily x3 days complete -Therapeutic dose of Lovenox 80 mg subcu daily, secondary to Covid infection and history of previous deep vein thrombosis -Patient tolerating diuresis well with her only being -1220 mL for the admission to date. -Start lasix 40 mg po bid for 1-2 days to continue diuresis - Monitor I&O closely - Monitor Creatinine with daily labs HYPOXIC AND HYPERCAPNIC RESPIRATORY FAILURE-acute on chronic. Secondary to COVID-19 and underlying COPD. -Supplemental oxygen as needed -hovering between 6-10L - Wean as able COPD EXACERBATION-secondary to Covid infection. Wheezing has resolved and shortness of breath is better. -transition to dexamethasone 4 mg once daily -Albuterol inhaler every 2 hours as needed -Mometasone inhaler twice daily -Combivent inhaler 4 times daily ACUTE KIDNEY INJURY-Baseline creatinine in the range of 1.1. -Recheck labs in the morning -Closely monitor renal function and urine output TYPE 2 DIABETES MELLITUS-currently on no active medical therapy. Blood sugars moderately elevated with steroid use but improving with supplemental insulin. -4 times daily glucometers -Medium-dose sliding scale Humalog MAINTENANCE ISSUES -DVT prophylaxis; enoxaparin -GI prophylaxis; PPI -Villeda catheter; not indicated -Nutrition; regular diet CODE STATUS-DNR/DNI DISPOSITION-anticipate discharge to home with [facility] after the hospital stay if she survives the hospital stay
[2020-04-12] MEDS: Nystatin Topical Powder 15 GM Bottle TOP SCH ×4 (05:51→21:41)
[2020-04-12] MEDS: Diclofenac Sodium 1% Gel 100 GM Tube TOP SCH ×4 (05:51→21:41)
[2020-04-12] MEDS: Furosemide 40 MG Tab PO SCH ×2 (07:40→13:36)
[2020-04-12] MEDS: Dexamethasone 2 MG Tab PO SCH (07:40)
[2020-04-12] MEDS: Insulin Lispro 100 Unit/ML 3 ML KwikPen SUBCUT SCH ×4 (07:40→21:38)
[2020-04-12] MEDS: Pantoprazole 40 MG Tab.CR PO SCH (07:41)
[2020-04-12] MEDS: Carvedilol 3.125 MG Tab PO SCH ×2 (07:42→16:48)
[2020-04-12] MEDS: Mometasone Furoate HFA 200 mcg/Puff 13 GM Inhaler INH SCH ×2 (08:25→21:38)
[2020-04-12] MEDS: Albuterol/Ipratropium 4 GM Inhalation Spray INH SCH ×4 (08:25→21:39)
[2020-04-12] MEDS: Losartan 50 MG Tab PO SCH (08:55)
[2020-04-12] MEDS: Fluticasone Propionate Nasal Spray 16 GM Bottle NAS SCH (08:55)
[2020-04-12] MEDS: Magnesium Oxide 400 MG Tab PO SCH ×3 (08:55→21:40)
[2020-04-12] MEDS: guaiFENesin 600 MG Tab.ER PO SCH ×2 (08:56→21:41)
[2020-04-12] MEDS: ROPINIROLE PO SCH ×4 (08:56→17:00)
[2020-04-12] MEDS: Gabapentin 300 MG Cap PO SCH ×3 (08:56→21:41)
[2020-04-12] MEDS: Apixaban 2.5 MG Tab PO SCH ×2 (08:57→21:40)
--- NOTE | 2020-04-12 12:01 | PCM.PN ---
- General Info Date of Service: 04/12/20 Subjective Update: No acute events overnight. Patient has been stable. She feels a little short of breath but feels better each day. Still requiring 8 to 10 L of supplemental oxygen. Blood sugars moderately elevated but overall well controlled. Tolerating diet. She was hoping to get up and try to increase her activity and endurance. No fevers. Doing well but still requiring high flow nasal cannula. Functional Status: Reports: Pain Controlled, Tolerating Diet - Review of Systems General: Reports: Weakness Pulmonary: Denies: Shortness of Breath - Patient Data Vitals - Most Recent: Last Vital Signs Temp 36.6 C 04/12/20 10:53 Pulse 63 04/12/20 10:53 Resp 18 04/12/20 10:53 BP 146/43 H 04/12/20 10:53 Pulse Ox 94 L 04/12/20 10:53 Weight - Most Recent: 75.931 kg I&O - Last 24 Hours: Intake & Output 04/11/20 04/12/20 04/12/20 22:59 06:59 14:59 Intake Total 776 250 Output Total 400 500 800 Balance 376 -250 -800 Lab Results Last 24 Hours: Laboratory Results - last 24 hr 04/11/20 04/11/20 04/12/20 Range/Units 16:30 21:00 05:12 WBC 7.6 (4.5-11.0) K/uL RBC 3.99 (3.30-5.50) M/uL Hgb 10.8 L (12.0-15.0) g/dL Hct 35.9 L (36.0-48.0) % MCV 90 (80-98) fL MCH 27 (27-31) pg MCHC 30 L (32-36) % Plt Count 75 L (150-400) K/uL Neut % (Auto) 90 H (36-66) % Lymph % (Auto) 6 L (24-44) % Shannon % (Auto) 4 (2-6) % Eos % (Auto) 0 L (2-4) % Baso % (Auto) 0 (0-1) % Sodium (140-148) mmol/L Potassium (3.6-5.2) mmol/L Chloride (100-108) mmol/L Carbon Dioxide (21-32) mmol/L Anion Gap (5.0-14.0) mmol/L BUN (7-18) mg/dL Creatinine (0.6-1.0) mg/dL Est Cr Clr Drug Dosing mL/min Estimated GFR (MDRD) (>60) Glucose (74-106) mg/dL POC Glucose 307 H 323 H (74-106) MG/DL Calcium (8.5-10.1) mg/dL Total Bilirubin (0.2-1.0) mg/dL AST (15-37) U/L ALT (12-78) U/L Alkaline Phosphatase (46-116) U/L Total Protein (6.4-8.2) g/dL Albumin (3.4-5.0) g/dL Globulin (2.3-3.5) g/dL Albumin/Globulin Ratio (1.2-2.2) 04/12/20 04/12/20 04/12/20 Range/Units 05:12 07:30 11:27 WBC (4.5-11.0) K/uL RBC (3.30-5.50) M/uL Hgb (12.0-15.0) g/dL Hct (36.0-48.0) % MCV (80-98) fL MCH (27-31) pg MCHC (32-36) % Plt Count (150-400) K/uL Neut % (Auto) (36-66) % Lymph % (Auto) (24-44) % Shannon % (Auto) (2-6) % Eos % (Auto) (2-4) % Baso % (Auto) (0-1) % Sodium 144 (140-148) mmol/L Potassium 5.0 (3.6-5.2) mmol/L Chloride 110 H (100-108) mmol/L Carbon Dioxide 32 (21-32) mmol/L Anion Gap 7.0 (5.0-14.0) mmol/L BUN 55 H (7-18) mg/dL Creatinine 0.8 (0.6-1.0) mg/dL Est Cr Clr Drug Dosing 49.53 mL/min Estimated GFR (MDRD) > 60 (>60) Glucose 130 H (74-106) mg/dL POC Glucose 155 H 245 H (74-106) MG/DL Calcium 8.1 L (8.5-10.1) mg/dL Total Bilirubin 0.5 (0.2-1.0) mg/dL AST 28 (15-37) U/L ALT 37 (12-78) U/L Alkaline Phosphatase 75 (46-116) U/L Total Protein 5.5 L (6.4-8.2) g/dL Albumin 1.6 L (3.4-5.0) g/dL Globulin 3.9 H (2.3-3.5) g/dL Albumin/Globulin Ratio 0.4 L (1.2-2.2) Med Orders - Current: Current Medications Acetaminophen (Tylenol) 650 mg PO Q4H PRN PRN Reason: Pain (Mild 1-3)/fever Hydrocodone Bitart/Acetaminophen ([place] 325-5 Mg) 1 tab PO Q4H PRN PRN Reason: Pain (moderate 4-6) Last Admin: 04/10/20 11:52 Dose: 1 tab Documented by: Albuterol (Ventolin Hfa) 0 gm INH Q2H PRN PRN Reason: Dyspnea Albuterol/Ipratropium (Combivent Respimat) 0 gm INH QIDRT [facility] Last Admin: 04/12/20 11:00 Dose: 2 inhalation Documented by: Apixaban (Eliquis) 2.5 mg PO BID [facility] Last Admin: 04/12/20 08:57 Dose: 2.5 mg Documented by: Benzocaine/Menthol (Cepacol Sore Throat) 1 lozenge MUCMEM 5XDAY PRN PRN Reason: Sore Throat Last Admin: 04/03/20 17:53 Dose: 1 janae Documented by: Benzonatate (Tessalon Perles) 100 mg PO TID PRN PRN Reason: Cough Carvedilol (Coreg) 6.25 mg PO BIDMEALS [facility] Last Admin: 04/12/20 07:42 Dose: 6.25 mg Documented by: Dexamethasone (Dexamethasone) 4 mg PO DAILY@0800 [facility] Last Admin: 04/12/20 07:40 Dose: 4 mg Documented by: Dextrose (Glutose 15) 15 gm PO ONETIME PRN PRN Reason: Hypoglycemia Dextrose/Water (Dextrose 50% In Water) 50 ml IVPUSH ASDIRECTED PRN PRN Reason: Hypoglycemia Diclofenac Sodium (Voltaren 1% Gel) 0 gm TOP QID [facility] Last Admin: 04/12/20 09:16 Dose: Not Given Documented by: Diphenhydramine HCl (Benadryl) 25 mg PO Q6H PRN PRN Reason: Itching Last Admin: 03/29/20 04:12 Dose: 25 mg Documented by: Fluticasone Propionate (Flonase) 0 gm YASMINE DAILY [facility] Last Admin: 04/12/20 08:55 Dose: Not Given Documented by: Furosemide (Lasix) 40 mg PO BIDDIURETIC [facility] Last Admin: 04/12/20 07:40 Dose: 40 mg Documented by: Gabapentin (Neurontin) 300 mg PO TID [facility] Last Admin: 04/12/20 08:56 Dose: 300 mg Documented by: Glucagon (Glucagen) 1 mg IM ASDIRECTED PRN PRN Reason: Hypoglycemia Guaifenesin (Mucinex) 600 mg PO BID [facility] Last Admin: 04/12/20 08:56 Dose: 600 mg Documented by: Guaifenesin/Dextromethorphan (Robitussin Dm) 10 ml PO Q6H PRN PRN Reason: Cough Insulin Human Lispro (Humalog) 0 unit SUBCUT QIDACANDBED [facility]; Protocol Last Admin: 04/12/20 11:57 Dose: 4 units Documented by: Losartan Potassium (Cozaar) 50 mg PO DAILY [facility] Last Admin: 04/12/20 08:55 Dose: 50 mg Documented by: Magnesium Oxide (Magnesium Oxide) 400 mg PO TID [facility] Last Admin: 04/12/20 08:55 Dose: 400 mg Documented by: Mometasone Furoate (Asmanex Hfa 200mcg) 0 gm INH BIDRT [facility] Last Admin: 04/12/20 08:25 Dose: 2 inhalation Documented by: Nystatin (Nystop) 0 gm TOP QID [facility] Last Admin: 04/12/20 09:16 Dose: Not Given Documented by: Ondansetron HCl (Zofran) 4 mg IV Q4H PRN PRN Reason: Nausea/Vomiting Pantoprazole Sodium (Protonix) 40 mg PO ACBREAKFAST [facility] Last Admin: 04/12/20 07:41 Dose: 40 mg Documented by: Polyethylene Glycol (Miralax) 17 gm PO DAILY PRN PRN Reason: Constipation Ropinirole HCl 0.5 mg/ (Ropinirole HCl 1 mg) 1.5 mg PO BID@0900,1800 [facility] Last Admin: 04/12/20 08:56 Dose: 1.5 mg Documented by: Sodium Chloride (Saline Flush) 10 ml FLUSH ASDIRECTED PRN PRN Reason: Keep Vein Open Discontinued Medications Hydrocodone Bitart/Acetaminophen ([place] 325-5 Mg) 1 tab PO Q6H PRN PRN Reason: Pain (moderate 4-6) Last Admin: 03/29/20 14:04 Dose: 1 tab Documented by: Albuterol (Ventolin Hfa) 2 gm INH ONETIME ONE Stop: 03/29/20 00:29 Last Admin: 03/29/20 00:59 Dose: 2 inh Documented by: Albuterol/Ipratropium (Combivent Respimat) 0 gm INH QID [facility] Last Admin: 03/29/20 05:24 Dose: 2 puff Documented by: Carvedilol (Coreg) 3.125 mg PO BIDMEALS [facility] Last Admin: 04/06/20 07:56 Dose: 3.125 mg Documented by: Dexamethasone (Decadron) 6 mg IVPUSH ONETIME ONE Stop: 03/29/20 00:32 Last Admin: 03/29/20 00:59 Dose: 6 mg Documented by: Dexamethasone (Decadron) 4 mg IVPUSH Q12H [facility] Stop: 04/08/20 01:01 Dexamethasone (Decadron) 6 mg IVPUSH Q24H [facility] Stop: 04/07/20 03:16 Dexamethasone (Decadron) 6 mg IVPUSH Q24H [facility] Stop: 04/08/20 01:01 Last Admin: 03/30/20 00:28 Dose: 6 mg Documented by: Dexamethasone (Decadron) 4 mg IVPUSH Q12H [facility] Stop: 04/08/20 21:01 Last Admin: 03/31/20 08:20 Dose: 4 mg Documented by: Dexamethasone (Dexamethasone) 4 mg PO BID [facility] Last Admin: 04/08/20 09:25 Dose: 4 mg Documented by: Diclofenac Sodium (Voltaren 1% Gel) 4 gm TOP QID [facility] Last Admin: 03/29/20 05:24 Dose: Not Given Documented by: Enoxaparin Sodium (Lovenox) 80 mg SUBCUT BEDTIME [facility] Last Admin: 03/29/20 04:35 Dose: Not Given Documented by: Enoxaparin Sodium (Lovenox) 80 mg SUBCUT Q24H [facility] Last Admin: 04/10/20 03:08 Dose: 80 mg Documented by: Furosemide (Lasix) 20 mg IVPUSH ONETIME ONE Stop: 03/31/20 06:24 Last Admin: 03/31/20 08:24 Dose: 20 mg Documented by: Furosemide (Lasix) 40 mg IVPUSH ONETIME ONE Stop: 04/04/20 08:02 Last Admin: 04/04/20 08:35 Dose: 40 mg Documented by: Furosemide (Lasix) 40 mg IVPUSH NOW ONE Stop: 04/06/20 13:01 Furosemide (Lasix) 40 mg PO ONETIME ONE Stop: 04/06/20 12:56 Last Admin: 04/06/20 13:11 Dose: 40 mg Documented by: Furosemide (Lasix) 60 mg PO ONETIME ONE Stop: 04/09/20 11:46 Last Admin: 04/09/20 12:25 Dose: 60 mg Documented by: Sodium Chloride (Normal Saline) 1,000 mls @ 100 mls/hr IV ASDIRECTED [facility] Remdesivir 200 mg/ Sodium (Chloride) 250 mls @ 250 mls/hr IV ONETIME ONE Stop: 03/29/20 02:38 Last Admin: 03/29/20 04:55 Dose: 250 mls/hr Documented by: Remdesivir 100 mg/ Sodium (Chloride) 100 mls @ 100 mls/hr IV Q24H [facility] Stop: 04/02/20 03:59 Last Admin: 04/02/20 03:54 Dose: 100 mls/hr Documented by: Insulin Human Lispro (Humalog) 0 unit SUBCUT QIDACANDBED [facility]; Protocol Last Admin: 04/03/20 19:47 Dose: Not Given Documented by: Insulin Human Lispro (Humalog) 10 unit SUBCUT ONETIME ONE Stop: 04/03/20 18:23 Last Admin: 04/03/20 18:27 Dose: 10 unit Documented by: Lorazepam (Ativan) 0.5 mg IVPUSH ONETIME ONE Stop: 03/29/20 02:34 Last Admin: 03/29/20 02:46 Dose: 0.5 mg Documented by: Methylprednisolone Sodium Succinate (Solu-Medrol) 62.5 mg IVPUSH Q8H [facility] Last Admin: 04/04/20 11:49 Dose: 62.5 mg Documented by: Ropinirole HCl (Requip) 1.5 mg PO BID [facility] Last Admin: 03/29/20 09:43 Dose: 1.5 mg Documented by: Ropinirole HCl 0.5 mg/ (Ropinirole HCl 1 mg) 1.5 mg PO BID [facility] Stop: 04/04/20 10:00 Last Admin: 04/04/20 08:00 Dose: 1.5 mg Documented by: - Exam Quality Assessment: Supplemental Oxygen General: Alert, Oriented, Cooperative, No Acute Distress Lungs: Normal Respiratory Effort, Crackles (mild diffuse) Cardiovascular: Regular Rate, Regular Rhythm GI/Abdominal Exam: Soft, No Distention Extremities: No Pedal Edema, Other (Allevyn on both lower legs ). No: Increased Warmth Skin: Warm, Dry Psy/Mental Status: Alert, Normal Affect Sepsis Event Note - Evaluation Sepsis Screening Result: No Definite Risk - Focused Exam Vital Signs: Vital Signs Temp Temp Pulse Pulse Resp BP BP 04/12/20 10:53 36.6 C 63 18 04/12/20 08:55 174/69 H 04/12/20 07:42 67 174/69 H 04/12/20 07:22 36.3 C 67 18 174/69 H 04/12/20 07:12 04/12/20 06:24 04/12/20 03:17 04/12/20 03:01 36.4 C 71 20 179/49 H 04/12/20 01:27 BP Pulse Ox 04/12/20 10:53 146/43 H 94 L 04/12/20 08:55 04/12/20 07:42 04/12/20 07:22 97 04/12/20 07:12 91 L 04/12/20 06:24 93 L 04/12/20 03:17 98 04/12/20 03:01 100 04/12/20 01:27 95 - Problem List Review Problem List Initiated/Reviewed/Updated: Yes - Plan Plan:: ASSESSMENT AND PLAN COVID-19 PNEUMONIA-Complicated by acute respiratory failure with hypoxia. Seems to be slowly improving. Now down to 10 L of supplemental oxygen. -Remdesivir complete -Continue steroids, start to taper tomorrow -Convalescent plasma daily x3 days complete -Therapeutic dose of Lovenox 80 mg subcu daily, secondary to Covid infection and history of previous deep vein thrombosis -Continue diuresis HYPOXIC AND HYPERCAPNIC RESPIRATORY FAILURE-acute on chronic. Secondary to COVID-19 and underlying COPD. -Supplemental oxygen as needed -hovering between 6-10L -Wean as able COPD EXACERBATION-secondary to Covid infection. This has resolved. -Steroids as above -Albuterol inhaler every 2 hours as needed -Mometasone inhaler twice daily -Combivent inhaler 4 times daily ACUTE KIDNEY INJURY-Baseline creatinine in the range of 1.1. -Recheck labs in the morning TYPE 2 DIABETES MELLITUS-currently on no active medical therapy. Blood sugars moderately elevated with steroid use but improving with supplemental insulin. -4 times daily glucometers -Medium-dose sliding scale Humalog MAINTENANCE ISSUES -DVT prophylaxis; enoxaparin -GI prophylaxis; PPI -Villeda catheter; not indicated -Nutrition; regular diet DISPOSITION-anticipate discharge to home with [facility] after the hospital stay Andrew Mojica MD
[2020-04-12] MEDS: Acetaminophen/HYDROcodone 325-5 MG Tab PO PRN (13:39)
[2020-04-13] MEDS: Diclofenac Sodium 1% Gel 100 GM Tube TOP SCH ×4 (06:02→21:14)
[2020-04-13] MEDS: Nystatin Topical Powder 15 GM Bottle TOP SCH ×4 (06:02→21:14)
[2020-04-13] MEDS: Albuterol/Ipratropium 4 GM Inhalation Spray INH SCH ×4 (07:43→21:10)
[2020-04-13] MEDS: Mometasone Furoate HFA 200 mcg/Puff 13 GM Inhaler INH SCH ×2 (07:44→21:10)
[2020-04-13] MEDS: Furosemide 40 MG Tab PO SCH ×2 (07:46→13:59)
[2020-04-13] MEDS: Pantoprazole 40 MG Tab.CR PO SCH (07:46)
[2020-04-13] MEDS: Carvedilol 3.125 MG Tab PO SCH ×2 (07:46→16:55)
[2020-04-13] MEDS: Insulin Lispro 100 Unit/ML 3 ML KwikPen SUBCUT SCH ×4 (07:47→21:11)
[2020-04-13] MEDS: Fluticasone Propionate Nasal Spray 16 GM Bottle NAS SCH (10:08)
[2020-04-13] MEDS: Losartan 50 MG Tab PO SCH (10:09)
[2020-04-13] MEDS: Dexamethasone 2 MG Tab PO SCH (10:09)
[2020-04-13] MEDS: Magnesium Oxide 400 MG Tab PO SCH ×3 (10:10→21:10)
[2020-04-13] MEDS: Apixaban 2.5 MG Tab PO SCH ×2 (10:10→21:10)
[2020-04-13] MEDS: Gabapentin 300 MG Cap PO SCH ×3 (10:10→21:10)
[2020-04-13] MEDS: guaiFENesin 600 MG Tab.ER PO SCH ×2 (10:10→21:09)
[2020-04-13] MEDS: ROPINIROLE PO SCH ×4 (10:11→17:02)
--- NOTE | 2020-04-13 10:16 | CR ---
CHEST: 2 view CLINICAL HISTORY:Respiratory failure, cov COMPARISON:03/29/2020 FINDINGS: Diffuse bilateral pulmonary infiltrates persist. The of increased since 03/29/2020. Heart is enlarged. Pulmonary vascularity is obscured by infiltrate. There are no definite effusions. There are multiple compression deformities in the thoracic spine. IMPRESSION: Increasing diffuse bilateral pulmonary infiltrates when compared to 03/29/2020 Cardiomegaly. Lung densities could be some superimposed pulmonary edema from some superimposed cardiac decompensation
[2020-04-13] MEDS: Acetaminophen/HYDROcodone 325-5 MG Tab PO PRN (10:17)
--- NOTE | 2020-04-13 11:50 | PCM.PN ---
- General Info Date of Service: 04/13/20 Subjective Update: There were no acute events overnight. Oxygenation has been stable to improving. She is now down to about 5 L of supplemental oxygen. She did get dyspneic with her trip to the bathroom but otherwise has been doing well. She was walking the halls yesterday. Blood sugars remain mild to moderately elevated but do seem to be improving as her steroids are being weaned. She feels good at rest. Cough is improving. Appetite has been good. Hoping to go home soon. Functional Status: Reports: Pain Controlled, Tolerating Diet - Review of Systems Cardiovascular: Reports: Dyspnea on Exertion - Patient Data Vitals - Most Recent: Last Vital Signs Temp 37.3 C 04/13/20 10:49 Pulse 62 04/13/20 10:49 Resp 20 04/13/20 10:49 BP 160/90 H 04/13/20 10:49 Pulse Ox 87 L 04/13/20 10:49 Weight - Most Recent: 75.931 kg I&O - Last 24 Hours: Intake & Output 04/12/20 04/13/20 04/13/20 22:59 06:59 14:59 Intake Total 300 500 Output Total 300 800 150 Balance -300 -500 350 Lab Results Last 24 Hours: Laboratory Results - last 24 hr 04/12/20 04/12/20 04/13/20 Range/Units 16:19 21:00 07:30 POC Glucose 370 H 262 H 187 H (74-106) MG/DL 04/13/20 Range/Units 11:30 POC Glucose 275 H (74-106) MG/DL Med Orders - Current: Current Medications Acetaminophen (Tylenol) 650 mg PO Q4H PRN PRN Reason: Pain (Mild 1-3)/fever Hydrocodone Bitart/Acetaminophen ([place] 325-5 Mg) 1 tab PO Q4H PRN PRN Reason: Pain (moderate 4-6) Last Admin: 04/13/20 10:17 Dose: 1 tab Documented by: Albuterol (Ventolin Hfa) 0 gm INH Q2H PRN PRN Reason: Dyspnea Albuterol/Ipratropium (Combivent Respimat) 0 gm INH QIDRT [facility] Last Admin: 04/13/20 07:43 Dose: 2 inhalation Documented by: Apixaban (Eliquis) 2.5 mg PO BID [facility] Last Admin: 04/13/20 10:10 Dose: 2.5 mg Documented by: Benzocaine/Menthol (Cepacol Sore Throat) 1 lozenge MUCMEM 5XDAY PRN PRN Reason: Sore Throat Last Admin: 04/03/20 17:53 Dose: 1 janae Documented by: Benzonatate (Tessalon Perles) 100 mg PO TID PRN PRN Reason: Cough Carvedilol (Coreg) 6.25 mg PO BIDMEALS [facility] Last Admin: 04/13/20 07:46 Dose: 6.25 mg Documented by: Dexamethasone (Dexamethasone) 3 mg PO DAILY [facility] Stop: 04/16/20 09:01 Last Admin: 04/13/20 10:09 Dose: 3 mg Documented by: Dexamethasone (Dexamethasone) 2 mg PO DAILY [facility] Stop: 04/20/20 09:01 Dexamethasone (Dexamethasone) 1 mg PO DAILY [facility] Dextrose (Glutose 15) 15 gm PO ONETIME PRN PRN Reason: Hypoglycemia Dextrose/Water (Dextrose 50% In Water) 50 ml IVPUSH ASDIRECTED PRN PRN Reason: Hypoglycemia Diclofenac Sodium (Voltaren 1% Gel) 0 gm TOP QID [facility] Last Admin: 04/13/20 10:12 Dose: Not Given Documented by: Diphenhydramine HCl (Benadryl) 25 mg PO Q6H PRN PRN Reason: Itching Last Admin: 03/29/20 04:12 Dose: 25 mg Documented by: Fluticasone Propionate (Flonase) 0 gm YASMINE DAILY [facility] Last Admin: 04/13/20 10:08 Dose: 2 spray Documented by: Furosemide (Lasix) 40 mg PO BIDDIURETIC [facility] Last Admin: 04/13/20 07:46 Dose: 40 mg Documented by: Gabapentin (Neurontin) 300 mg PO TID [facility] Last Admin: 04/13/20 10:10 Dose: 300 mg Documented by: Glucagon (Glucagen) 1 mg IM ASDIRECTED PRN PRN Reason: Hypoglycemia Guaifenesin (Mucinex) 600 mg PO BID [facility] Last Admin: 04/13/20 10:10 Dose: 600 mg Documented by: Guaifenesin/Dextromethorphan (Robitussin Dm) 10 ml PO Q6H PRN PRN Reason: Cough Insulin Human Lispro (Humalog) 0 unit SUBCUT QIDACANDBED [facility]; Protocol Last Admin: 04/13/20 07:47 Dose: 2 units Documented by: Losartan Potassium (Cozaar) 50 mg PO DAILY [facility] Last Admin: 04/13/20 10:09 Dose: 50 mg Documented by: Magnesium Oxide (Magnesium Oxide) 400 mg PO TID [facility] Last Admin: 04/13/20 10:10 Dose: 400 mg Documented by: Mometasone Furoate (Asmanex Hfa 200mcg) 0 gm INH BIDRT [facility] Last Admin: 04/13/20 07:44 Dose: 2 inhalation Documented by: Nystatin (Nystop) 0 gm TOP QID [facility] Last Admin: 04/13/20 10:12 Dose: Not Given Documented by: Ondansetron HCl (Zofran) 4 mg IV Q4H PRN PRN Reason: Nausea/Vomiting Pantoprazole Sodium (Protonix) 40 mg PO ACBREAKFAST [facility] Last Admin: 04/13/20 07:46 Dose: 40 mg Documented by: Polyethylene Glycol (Miralax) 17 gm PO DAILY PRN PRN Reason: Constipation Ropinirole HCl 0.5 mg/ (Ropinirole HCl 1 mg) 1.5 mg PO BID@0900,1800 [facility] Last Admin: 04/13/20 10:11 Dose: 1.5 mg Documented by: Sodium Chloride (Saline Flush) 10 ml FLUSH ASDIRECTED PRN PRN Reason: Keep Vein Open Discontinued Medications Hydrocodone Bitart/Acetaminophen ([place] 325-5 Mg) 1 tab PO Q6H PRN PRN Reason: Pain (moderate 4-6) Last Admin: 03/29/20 14:04 Dose: 1 tab Documented by: Albuterol (Ventolin Hfa) 2 gm INH ONETIME ONE Stop: 03/29/20 00:29 Last Admin: 03/29/20 00:59 Dose: 2 inh Documented by: Albuterol/Ipratropium (Combivent Respimat) 0 gm INH QID [facility] Last Admin: 03/29/20 05:24 Dose: 2 puff Documented by: Carvedilol (Coreg) 3.125 mg PO BIDMEALS [facility] Last Admin: 04/06/20 07:56 Dose: 3.125 mg Documented by: Dexamethasone (Decadron) 6 mg IVPUSH ONETIME ONE Stop: 03/29/20 00:32 Last Admin: 03/29/20 00:59 Dose: 6 mg Documented by: Dexamethasone (Decadron) 4 mg IVPUSH Q12H [facility] Stop: 04/08/20 01:01 Dexamethasone (Decadron) 6 mg IVPUSH Q24H [facility] Stop: 04/07/20 03:16 Dexamethasone (Decadron) 6 mg IVPUSH Q24H [facility] Stop: 04/08/20 01:01 Last Admin: 03/30/20 00:28 Dose: 6 mg Documented by: Dexamethasone (Decadron) 4 mg IVPUSH Q12H [facility] Stop: 04/08/20 21:01 Last Admin: 03/31/20 08:20 Dose: 4 mg Documented by: Dexamethasone (Dexamethasone) 4 mg PO BID [facility] Last Admin: 04/08/20 09:25 Dose: 4 mg Documented by: Dexamethasone (Dexamethasone) 4 mg PO DAILY@0800 [facility] Last Admin: 04/12/20 07:40 Dose: 4 mg Documented by: Diclofenac Sodium (Voltaren 1% Gel) 4 gm TOP QID [facility] Last Admin: 03/29/20 05:24 Dose: Not Given Documented by: Enoxaparin Sodium (Lovenox) 80 mg SUBCUT BEDTIME [facility] Last Admin: 03/29/20 04:35 Dose: Not Given Documented by: Enoxaparin Sodium (Lovenox) 80 mg SUBCUT Q24H [facility] Last Admin: 04/10/20 03:08 Dose: 80 mg Documented by: Furosemide (Lasix) 20 mg IVPUSH ONETIME ONE Stop: 03/31/20 06:24 Last Admin: 03/31/20 08:24 Dose: 20 mg Documented by: Furosemide (Lasix) 40 mg IVPUSH ONETIME ONE Stop: 04/04/20 08:02 Last Admin: 04/04/20 08:35 Dose: 40 mg Documented by: Furosemide (Lasix) 40 mg IVPUSH NOW ONE Stop: 04/06/20 13:01 Furosemide (Lasix) 40 mg PO ONETIME ONE Stop: 04/06/20 12:56 Last Admin: 04/06/20 13:11 Dose: 40 mg Documented by: Furosemide (Lasix) 60 mg PO ONETIME ONE Stop: 04/09/20 11:46 Last Admin: 04/09/20 12:25 Dose: 60 mg Documented by: Sodium Chloride (Normal Saline) 1,000 mls @ 100 mls/hr IV ASDIRECTED [facility] Remdesivir 200 mg/ Sodium (Chloride) 250 mls @ 250 mls/hr IV ONETIME ONE Stop: 03/29/20 02:38 Last Admin: 03/29/20 04:55 Dose: 250 mls/hr Documented by: Remdesivir 100 mg/ Sodium (Chloride) 100 mls @ 100 mls/hr IV Q24H [facility] Stop: 04/02/20 03:59 Last Admin: 04/02/20 03:54 Dose: 100 mls/hr Documented by: Insulin Human Lispro (Humalog) 0 unit SUBCUT QIDACANDBED [facility]; Protocol Last Admin: 04/03/20 19:47 Dose: Not Given Documented by: Insulin Human Lispro (Humalog) 10 unit SUBCUT ONETIME ONE Stop: 04/03/20 18:23 Last Admin: 04/03/20 18:27 Dose: 10 unit Documented by: Lorazepam (Ativan) 0.5 mg IVPUSH ONETIME ONE Stop: 03/29/20 02:34 Last Admin: 03/29/20 02:46 Dose: 0.5 mg Documented by: Methylprednisolone Sodium Succinate (Solu-Medrol) 62.5 mg IVPUSH Q8H [facility] Last Admin: 04/04/20 11:49 Dose: 62.5 mg Documented by: Ropinirole HCl (Requip) 1.5 mg PO BID [facility] Last Admin: 03/29/20 09:43 Dose: 1.5 mg Documented by: Ropinirole HCl 0.5 mg/ (Ropinirole HCl 1 mg) 1.5 mg PO BID [facility] Stop: 04/04/20 10:00 Last Admin: 04/04/20 08:00 Dose: 1.5 mg Documented by: - Exam Quality Assessment: Supplemental Oxygen General: Alert, Oriented, Cooperative, No Acute Distress Lungs: Normal Respiratory Effort, Crackles (mild diffuse) Cardiovascular: Regular Rate, Regular Rhythm GI/Abdominal Exam: Soft, No Distention Extremities: Pedal Edema. No: Increased Warmth Skin: Warm, Dry Psy/Mental Status: Alert, Normal Affect Sepsis Event Note - Evaluation Sepsis Screening Result: No Definite Risk - Focused Exam Vital Signs: Vital Signs Temp Pulse Pulse Pulse Resp BP BP 04/13/20 10:49 37.3 C 62 20 04/13/20 10:09 170/40 H 04/13/20 07:46 70 170/40 H 04/13/20 07:14 36.7 C 70 16 04/13/20 06:58 04/13/20 03:00 36.4 C 61 18 148/52 H 04/13/20 00:57 04/13/20 00:56 BP Pulse Ox 04/13/20 10:49 160/90 H 87 L 04/13/20 10:09 04/13/20 07:46 04/13/20 07:14 171/40 H 86 L 04/13/20 06:58 89 L 04/13/20 03:00 91 L 04/13/20 00:57 94 L 04/13/20 00:56 94 L - Problem List Review Problem List Initiated/Reviewed/Updated: Yes - My Orders Last 24 Hours: My Active Orders 04/13/20 09:00 dexAMETHasone 3 mg PO DAILY 04/13/20 16:30 GLUCOSE POC LAB TO COLLECT JPM [POC] QIDACANDBED 04/13/20 21:00 GLUCOSE POC LAB TO COLLECT JPM [POC] QIDACANDBED 04/14/20 05:00 BASIC METABOLIC PANEL,BMP [CHEM] Timed CBC W/O DIFF,HEMOGRAM [HEME] Timed (1) 04/14/20 07:30 GLUCOSE POC LAB TO COLLECT JPM [POC] QIDACANDBED 04/14/20 11:30 GLUCOSE POC LAB TO COLLECT JPM [POC] QIDACANDBED 04/14/20 16:30 GLUCOSE POC LAB TO COLLECT JPM [POC] QIDACANDBED 04/14/20 21:00 GLUCOSE POC LAB TO COLLECT JPM [POC] QIDACANDBED 04/15/20 07:30 GLUCOSE POC LAB TO COLLECT JPM [POC] QIDACANDBED 04/15/20 11:30 GLUCOSE POC LAB TO COLLECT JPM [POC] QIDACANDBED 04/15/20 16:30 GLUCOSE POC LAB TO COLLECT JPM [POC] QIDACANDBED 04/15/20 21:00 GLUCOSE POC LAB TO COLLECT JPM [POC] QIDACANDBED 04/16/20 07:30 GLUCOSE POC LAB TO COLLECT JPM [POC] QIDACANDBED 04/16/20 11:30 GLUCOSE POC LAB TO COLLECT JPM [POC] QIDACANDBED 04/16/20 16:30 GLUCOSE POC LAB TO COLLECT JPM [POC] QIDACANDBED 04/16/20 21:00 GLUCOSE POC LAB TO COLLECT JPM [POC] QIDACANDBED 04/17/20 07:30 GLUCOSE POC LAB TO COLLECT JPM [POC] QIDACANDBED 04/17/20 09:00 dexAMETHasone 2 mg PO DAILY 04/17/20 11:30 GLUCOSE POC LAB TO COLLECT JPM [POC] QIDACANDBED 04/17/20 16:30 GLUCOSE POC LAB TO COLLECT JPM [POC] QIDACANDBED 04/17/20 21:00 GLUCOSE POC LAB TO COLLECT JPM [POC] QIDACANDBED 04/18/20 07:30 GLUCOSE POC LAB TO COLLECT JPM [POC] QIDACANDBED 04/18/20 11:30 GLUCOSE POC LAB TO COLLECT JPM [POC] QIDACANDBED 04/21/20 09:00 dexAMETHasone 1 mg PO DAILY - Plan Plan:: ASSESSMENT AND PLAN COVID-19 PNEUMONIA-Complicated by acute respiratory failure with hypoxia. Slow but steady improvement and now down to 4 to 5 L of supplemental oxygen. -Remdesivir complete -Continue steroids with taper -Convalescent plasma daily x3 days complete -Therapeutic dose of Lovenox 80 mg subcu daily, secondary to Covid infection and history of previous deep vein thrombosis -Continue diuresis HYPOXIC AND HYPERCAPNIC RESPIRATORY FAILURE-acute on chronic. Secondary to COVID-19 and underlying COPD. -Supplemental oxygen as needed -Wean as able COPD EXACERBATION-secondary to Covid infection. This has resolved. -Steroids as above -Albuterol inhaler every 2 hours as needed -Mometasone inhaler twice daily -Combivent inhaler 4 times daily ACUTE KIDNEY INJURY-Baseline creatinine in the range of 1.1. -Recheck labs in the morning TYPE 2 DIABETES MELLITUS-currently on no active medical therapy. Blood sugars m oderately elevated with steroid use but improving with supplemental insulin. -4 times daily glucometers -Medium-dose sliding scale Humalog MAINTENANCE ISSUES -DVT prophylaxis; enoxaparin -GI prophylaxis; PPI -[place] catheter; not indicated -Nutrition; regular diet DISPOSITION-anticipate discharge to home with [facility] after the hospital stay Andrew Mojica MD
[2020-04-14] MEDS: Diclofenac Sodium 1% Gel 100 GM Tube TOP SCH ×4 (06:54→21:19)
[2020-04-14] MEDS: Nystatin Topical Powder 15 GM Bottle TOP SCH ×4 (06:54→21:19)
[2020-04-14] MEDS: Albuterol/Ipratropium 4 GM Inhalation Spray INH SCH ×4 (07:15→21:13)
[2020-04-14] MEDS: Mometasone Furoate HFA 200 mcg/Puff 13 GM Inhaler INH SCH ×2 (07:15→21:12)
[2020-04-14] MEDS: Insulin Lispro 100 Unit/ML 3 ML KwikPen SUBCUT SCH ×4 (07:41→21:14)
[2020-04-14] MEDS: Pantoprazole 40 MG Tab.CR PO SCH (07:53)
[2020-04-14] MEDS: Carvedilol 3.125 MG Tab PO SCH ×2 (07:53→16:03)
[2020-04-14] MEDS: Furosemide 40 MG Tab PO SCH ×2 (07:53→13:23)
[2020-04-14] MEDS: Dexamethasone 2 MG Tab PO SCH (09:20)
[2020-04-14] MEDS: guaiFENesin 600 MG Tab.ER PO SCH ×2 (09:20→21:14)
[2020-04-14] MEDS: Losartan 50 MG Tab PO SCH (09:20)
[2020-04-14] MEDS: Magnesium Oxide 400 MG Tab PO SCH ×3 (09:20→21:14)
[2020-04-14] MEDS: ROPINIROLE PO SCH ×4 (09:20→17:16)
[2020-04-14] MEDS: Gabapentin 300 MG Cap PO SCH ×3 (09:21→21:14)
[2020-04-14] MEDS: Apixaban 2.5 MG Tab PO SCH ×2 (09:21→21:14)
[2020-04-14] MEDS: Fluticasone Propionate Nasal Spray 16 GM Bottle NAS SCH (09:21)
--- NOTE | 2020-04-14 12:17 | PCM.PN ---
- General Info Date of Service: 04/14/20 Subjective Update: No acute events overnight. Oxygenation has been stable and she does continue to require anywhere between 5 and 8 L of supplemental oxygen. She was up and walking in the hooper again. Strength is slowly improving. She feels some dyspnea with exertion but much more comfortable at rest. No fevers. Blood sugars remain mild to moderately elevated. Functional Status: Reports: Pain Controlled, Tolerating Diet - Review of Systems General: Denies: Weakness Cardiovascular: Reports: Dyspnea on Exertion - Patient Data Vitals - Most Recent: Last Vital Signs Temp 37.5 C 04/14/20 10:53 Pulse 59 L 04/14/20 10:53 Resp 16 04/14/20 10:53 BP 151/39 H 04/14/20 10:53 Pulse Ox 88 L 04/14/20 10:53 Weight - Most Recent: 76.839 kg I&O - Last 24 Hours: Intake & Output 04/13/20 04/14/20 04/14/20 22:59 06:59 14:59 Intake Total 1780 400 Output Total 900 400 500 Balance 880 -400 -100 Lab Results Last 24 Hours: Laboratory Results - last 24 hr 04/13/20 04/13/20 04/14/20 Range/Units 16:37 21:01 05:46 WBC 7.8 (4.5-11.0) K/uL RBC 3.90 (3.30-5.50) M/uL Hgb 10.3 L (12.0-15.0) g/dL Hct 35.1 L (36.0-48.0) % MCV 90 (80-98) fL MCH 26 L (27-31) pg MCHC 29 L (32-36) % Plt Count 66 L (150-400) K/uL Sodium (140-148) mmol/L Potassium (3.6-5.2) mmol/L Chloride (100-108) mmol/L Carbon Dioxide (21-32) mmol/L Anion Gap (5.0-14.0) mmol/L BUN (7-18) mg/dL Creatinine (0.6-1.0) mg/dL Est Cr Clr Drug Dosing mL/min Estimated GFR (MDRD) (>60) Glucose (74-106) mg/dL POC Glucose 270 H 361 H (74-106) MG/DL Calcium (8.5-10.1) mg/dL 04/14/20 04/14/20 04/14/20 Range/Units 05:46 07:42 11:49 WBC (4.5-11.0) K/uL RBC (3.30-5.50) M/uL Hgb (12.0-15.0) g/dL Hct (36.0-48.0) % MCV (80-98) fL MCH (27-31) pg MCHC (32-36) % Plt Count (150-400) K/uL Sodium 141 (140-148) mmol/L Potassium 5.2 (3.6-5.2) mmol/L Chloride 105 (100-108) mmol/L Carbon Dioxide 33 H (21-32) mmol/L Anion Gap 8.2 (5.0-14.0) mmol/L BUN 63 H (7-18) mg/dL Creatinine 1.2 H (0.6-1.0) mg/dL Est Cr Clr Drug Dosing 33.02 mL/min Estimated GFR (MDRD) 44 L (>60) Glucose 139 H (74-106) mg/dL POC Glucose 144 H 230 H (74-106) MG/DL Calcium 8.2 L (8.5-10.1) mg/dL Med Orders - Current: Current Medications Acetaminophen (Tylenol) 650 mg PO Q4H PRN PRN Reason: Pain (Mild 1-3)/fever Hydrocodone Bitart/Acetaminophen ([place] 325-5 Mg) 1 tab PO Q4H PRN PRN Reason: Pain (moderate 4-6) Last Admin: 04/13/20 10:17 Dose: 1 tab Documented by: Albuterol (Ventolin Hfa) 0 gm INH Q2H PRN PRN Reason: Dyspnea Albuterol/Ipratropium (Combivent Respimat) 0 gm INH QIDRT [facility] Last Admin: 04/14/20 10:41 Dose: 2 inhalation Documented by: Apixaban (Eliquis) 2.5 mg PO BID [facility] Last Admin: 04/14/20 09:21 Dose: 2.5 mg Documented by: Benzocaine/Menthol (Cepacol Sore Throat) 1 lozenge MUCMEM 5XDAY PRN PRN Reason: Sore Throat Last Admin: 04/03/20 17:53 Dose: 1 janae Documented by: Benzonatate (Tessalon Perles) 100 mg PO TID PRN PRN Reason: Cough Carvedilol (Coreg) 6.25 mg PO BIDMEALS [facility] Last Admin: 04/14/20 07:53 Dose: 6.25 mg Documented by: Dexamethasone (Dexamethasone) 3 mg PO DAILY [facility] Stop: 04/16/20 09:01 Last Admin: 04/14/20 09:20 Dose: 3 mg Documented by: Dexamethasone (Dexamethasone) 2 mg PO DAILY [facility] Stop: 04/20/20 09:01 Dexamethasone (Dexamethasone) 1 mg PO DAILY [facility] Dextrose (Glutose 15) 15 gm PO ONETIME PRN PRN Reason: Hypoglycemia Dextrose/Water (Dextrose 50% In Water) 50 ml IVPUSH ASDIRECTED PRN PRN Reason: Hypoglycemia Diclofenac Sodium (Voltaren 1% Gel) 0 gm TOP QID [facility] Last Admin: 04/14/20 09:21 Dose: Not Given Documented by: Diphenhydramine HCl (Benadryl) 25 mg PO Q6H PRN PRN Reason: Itching Last Admin: 03/29/20 04:12 Dose: 25 mg Documented by: Fluticasone Propionate (Flonase) 0 gm YASMINE DAILY [facility] Last Admin: 04/14/20 09:21 Dose: Not Given Documented by: Furosemide (Lasix) 40 mg PO BIDDIURETIC [facility] Last Admin: 04/14/20 07:53 Dose: 40 mg Documented by: Gabapentin (Neurontin) 300 mg PO TID [facility] Last Admin: 04/14/20 09:21 Dose: 300 mg Documented by: Glucagon (Glucagen) 1 mg IM ASDIRECTED PRN PRN Reason: Hypoglycemia Guaifenesin (Mucinex) 600 mg PO BID [facility] Last Admin: 04/14/20 09:20 Dose: 600 mg Documented by: Guaifenesin/Dextromethorphan (Robitussin Dm) 10 ml PO Q6H PRN PRN Reason: Cough Insulin Human Lispro (Humalog) 0 unit SUBCUT QIDACANDBED [facility]; Protocol Last Admin: 04/14/20 07:41 Dose: Not Given Documented by: Losartan Potassium (Cozaar) 50 mg PO DAILY [facility] Last Admin: 04/14/20 09:20 Dose: 50 mg Documented by: Magnesium Oxide (Magnesium Oxide) 400 mg PO TID [facility] Last Admin: 04/14/20 09:20 Dose: 400 mg Documented by: Mometasone Furoate (Asmanex Hfa 200mcg) 0 gm INH BIDRT [facility] Last Admin: 04/14/20 07:15 Dose: 2 inhalation Documented by: Nystatin (Nystop) 0 gm TOP QID [facility] Last Admin: 04/14/20 09:21 Dose: Not Given Documented by: Ondansetron HCl (Zofran) 4 mg IV Q4H PRN PRN Reason: Nausea/Vomiting Pantoprazole Sodium (Protonix) 40 mg PO ACBREAKFAST [facility] Last Admin: 04/14/20 07:53 Dose: 40 mg Documented by: Polyethylene Glycol (Miralax) 17 gm PO DAILY PRN PRN Reason: Constipation Ropinirole HCl 0.5 mg/ (Ropinirole HCl 1 mg) 1.5 mg PO BID@0900,1800 [facility] Last Admin: 04/14/20 09:20 Dose: 1.5 mg Documented by: Sodium Chloride (Saline Flush) 10 ml FLUSH ASDIRECTED PRN PRN Reason: Keep Vein Open Discontinued Medications Hydrocodone Bitart/Acetaminophen ([place] 325-5 Mg) 1 tab PO Q6H PRN PRN Reason: Pain (moderate 4-6) Last Admin: 03/29/20 14:04 Dose: 1 tab Documented by: Albuterol (Ventolin Hfa) 2 gm INH ONETIME ONE Stop: 03/29/20 00:29 Last Admin: 03/29/20 00:59 Dose: 2 inh Documented by: Albuterol/Ipratropium (Combivent Respimat) 0 gm INH QID [facility] Last Admin: 03/29/20 05:24 Dose: 2 puff Documented by: Carvedilol (Coreg) 3.125 mg PO BIDMEALS [facility] Last Admin: 04/06/20 07:56 Dose: 3.125 mg Documented by: Dexamethasone (Decadron) 6 mg IVPUSH ONETIME ONE Stop: 03/29/20 00:32 Last Admin: 03/29/20 00:59 Dose: 6 mg Documented by: Dexamethasone (Decadron) 4 mg IVPUSH Q12H [facility] Stop: 04/08/20 01:01 Dexamethasone (Decadron) 6 mg IVPUSH Q24H [facility] Stop: 04/07/20 03:16 Dexamethasone (Decadron) 6 mg IVPUSH Q24H [facility] Stop: 04/08/20 01:01 Last Admin: 03/30/20 00:28 Dose: 6 mg Documented by: Dexamethasone (Decadron) 4 mg IVPUSH Q12H [facility] Stop: 04/08/20 21:01 Last Admin: 03/31/20 08:20 Dose: 4 mg Documented by: Dexamethasone (Dexamethasone) 4 mg PO BID [facility] Last Admin: 04/08/20 09:25 Dose: 4 mg Documented by: Dexamethasone (Dexamethasone) 4 mg PO DAILY@0800 [facility] Last Admin: 04/12/20 07:40 Dose: 4 mg Documented by: Diclofenac Sodium (Voltaren 1% Gel) 4 gm TOP QID [facility] Last Admin: 03/29/20 05:24 Dose: Not Given Documented by: Enoxaparin Sodium (Lovenox) 80 mg SUBCUT BEDTIME [facility] Last Admin: 03/29/20 04:35 Dose: Not Given Documented by: Enoxaparin Sodium (Lovenox) 80 mg SUBCUT Q24H [facility] Last Admin: 04/10/20 03:08 Dose: 80 mg Documented by: Furosemide (Lasix) 20 mg IVPUSH ONETIME ONE Stop: 03/31/20 06:24 Last Admin: 03/31/20 08:24 Dose: 20 mg Documented by: Furosemide (Lasix) 40 mg IVPUSH ONETIME ONE Stop: 04/04/20 08:02 Last Admin: 04/04/20 08:35 Dose: 40 mg Documented by: Furosemide (Lasix) 40 mg IVPUSH NOW ONE Stop: 04/06/20 13:01 Furosemide (Lasix) 40 mg PO ONETIME ONE Stop: 04/06/20 12:56 Last Admin: 04/06/20 13:11 Dose: 40 mg Documented by: Furosemide (Lasix) 60 mg PO ONETIME ONE Stop: 04/09/20 11:46 Last Admin: 04/09/20 12:25 Dose: 60 mg Documented by: Sodium Chloride (Normal Saline) 1,000 mls @ 100 mls/hr IV ASDIRECTED [facility] Remdesivir 200 mg/ Sodium (Chloride) 250 mls @ 250 mls/hr IV ONETIME ONE Stop: 03/29/20 02:38 Last Admin: 03/29/20 04:55 Dose: 250 mls/hr Documented by: Remdesivir 100 mg/ Sodium (Chloride) 100 mls @ 100 mls/hr IV Q24H [facility] Stop: 04/02/20 03:59 Last Admin: 04/02/20 03:54 Dose: 100 mls/hr Documented by: Insulin Human Lispro (Humalog) 0 unit SUBCUT QIDACANDBED [facility]; Protocol Last Admin: 04/03/20 19:47 Dose: Not Given Documented by: Insulin Human Lispro (Humalog) 10 unit SUBCUT ONETIME ONE Stop: 04/03/20 18:23 Last Admin: 04/03/20 18:27 Dose: 10 unit Documented by: Lorazepam (Ativan) 0.5 mg IVPUSH ONETIME ONE Stop: 03/29/20 02:34 Last Admin: 03/29/20 02:46 Dose: 0.5 mg Documented by: Methylprednisolone Sodium Succinate (Solu-Medrol) 62.5 mg IVPUSH Q8H [facility] Last Admin: 04/04/20 11:49 Dose: 62.5 mg Documented by: Ropinirole HCl (Requip) 1.5 mg PO BID [facility] Last Admin: 03/29/20 09:43 Dose: 1.5 mg Documented by: Ropinirole HCl 0.5 mg/ (Ropinirole HCl 1 mg) 1.5 mg PO BID [facility] Stop: 04/04/20 10:00 Last Admin: 04/04/20 08:00 Dose: 1.5 mg Documented by: - Exam Quality Assessment: Supplemental Oxygen General: Alert, Oriented, Cooperative, No Acute Distress Lungs: Normal Respiratory Effort. No: Wheezing Cardiovascular: Regular Rate, Regular Rhythm GI/Abdominal Exam: Soft, No Distention Psy/Mental Status: Alert, Normal Affect Sepsis Event Note - Evaluation Sepsis Screening Result: No Definite Risk - Focused Exam Vital Signs: Vital Signs Temp Pulse Pulse Resp BP BP BP 04/14/20 10:53 37.5 C 59 L 16 151/39 H 04/14/20 09:20 166/50 H 04/14/20 07:53 65 166/50 H 04/14/20 07:18 04/14/20 07:04 37.2 C 65 16 166/50 H 04/14/20 04:04 37.1 C 57 L 18 140/46 L 04/14/20 01:36 04/14/20 00:36 57 L Pulse Ox 04/14/20 10:53 88 L 04/14/20 09:20 04/14/20 07:53 04/14/20 07:18 87 L 04/14/20 07:04 88 L 04/14/20 04:04 92 L 04/14/20 01:36 90 L 04/14/20 00:36 87 L - Problem List Review Problem List Initiated/Reviewed/Updated: Yes - My Orders Last 24 Hours: My Active Orders 04/14/20 16:30 GLUCOSE POC LAB TO COLLECT JPM [POC] QIDACANDBED 04/14/20 21:00 GLUCOSE POC LAB TO COLLECT JPM [POC] QIDADBED 04/15/20 07:30 GLUCOSE POC LAB TO COLLECT JPM [POC] QIDADBED 04/15/20 11:30 GLUCOSE POC LAB TO COLLECT JPM [POC] QIDACANDBED 04/15/20 16:30 GLUCOSE POC LAB TO COLLECT JPM [POC] QIDACANDBED 04/15/20 21:00 GLUCOSE POC LAB TO COLLECT JPM [POC] QIDACANDBED 04/16/20 07:30 GLUCOSE POC LAB TO COLLECT JPM [POC] QIDACANDBED 04/16/20 11:30 GLUCOSE POC LAB TO COLLECT JPM [POC] QIDADBED 04/16/20 16:30 GLUCOSE POC LAB TO COLLECT JPM [POC] QIDACANDBED 04/16/20 21:00 GLUCOSE POC LAB TO COLLECT JPM [POC] QIDACANDBED 04/17/20 07:30 GLUCOSE POC LAB TO COLLECT JPM [POC] QIDADBED 04/17/20 09:00 dexAMETHasone 2 mg PO DAILY 04/17/20 11:30 GLUCOSE POC LAB TO COLLECT JPM [POC] QIDACANDBED 04/17/20 16:30 GLUCOSE POC LAB TO COLLECT JPM [POC] QIDACANDBED 04/17/20 21:00 GLUCOSE POC LAB TO COLLECT JPM [POC] QIDACANDBED 04/18/20 07:30 GLUCOSE POC LAB TO COLLECT JPM [POC] QIDACANDBED 04/18/20 11:30 GLUCOSE POC LAB TO COLLECT JPM [POC] QIDACANDBED 04/21/20 09:00 dexAMETHasone 1 mg PO DAILY - Plan Plan:: ASSESSMENT AND PLAN COVID-19 PNEUMONIA-Complicated by acute respiratory failure with hypoxia. Slow but steady improvement and now down to 4 to 6 L of supplemental oxygen. Volume status appropriate. -Remdesivir complete -Continue steroids with taper -Convalescent plasma daily x3 days complete -Therapeutic dose of Lovenox 80 mg subcu daily -Increase activity as tolerated HYPOXIC AND HYPERCAPNIC RESPIRATORY FAILURE-acute on chronic. Secondary to COVID-19 and underlying COPD. -Supplemental oxygen as needed -Wean as able COPD-acute exacerbation has resolved. -Albuterol inhaler every 2 hours as needed -Mometasone inhaler twice daily -Combivent inhaler 4 times daily ACUTE KIDNEY INJURY-resolved. TYPE 2 DIABETES MELLITUS-currently on no active medical therapy. Blood sugars moderately elevated with steroid use but improving with supplemental insulin. -4 times daily glucometers -Medium-dose sliding scale Humalog MAINTENANCE ISSUES -DVT prophylaxis; enoxaparin -GI prophylaxis; PPI -[place] catheter; not indicated -Nutrition; regular diet DISPOSITION-anticipate discharge to home with [facility] after the hospital stay Andrew Mojica MD
[2020-04-15] MEDS: Nystatin Topical Powder 15 GM Bottle TOP SCH ×4 (05:44→21:22)
[2020-04-15] MEDS: Diclofenac Sodium 1% Gel 100 GM Tube TOP SCH ×4 (05:44→21:22)
[2020-04-15] MEDS: Albuterol/Ipratropium 4 GM Inhalation Spray INH SCH ×4 (07:22→21:14)
[2020-04-15] MEDS: Mometasone Furoate HFA 200 mcg/Puff 13 GM Inhaler INH SCH ×2 (07:22→21:13)
[2020-04-15] MEDS: Pantoprazole 40 MG Tab.CR PO SCH (07:45)
[2020-04-15] MEDS: Furosemide 40 MG Tab PO SCH ×2 (07:47→13:14)
[2020-04-15] MEDS: Carvedilol 3.125 MG Tab PO SCH ×2 (07:47→17:14)
[2020-04-15] MEDS: Insulin Lispro 100 Unit/ML 3 ML KwikPen SUBCUT SCH ×4 (07:49→21:17)
[2020-04-15] MEDS: Fluticasone Propionate Nasal Spray 16 GM Bottle NAS SCH (09:31)
[2020-04-15] MEDS: Apixaban 2.5 MG Tab PO SCH ×2 (09:31→21:15)
[2020-04-15] MEDS: Gabapentin 300 MG Cap PO SCH ×3 (09:31→21:15)
[2020-04-15] MEDS: Magnesium Oxide 400 MG Tab PO SCH ×3 (09:31→21:15)
[2020-04-15] MEDS: Dexamethasone 2 MG Tab PO SCH (09:31)
[2020-04-15] MEDS: guaiFENesin 600 MG Tab.ER PO SCH ×2 (09:32→21:15)
[2020-04-15] MEDS: Losartan 50 MG Tab PO SCH (09:32)
[2020-04-15] MEDS: ROPINIROLE PO SCH ×4 (09:40→17:15)
--- NOTE | 2020-04-15 13:17 | PCM.PN ---
- General Info Date of Service: 04/15/20 Subjective Update: No acute events overnight. Still requiring about 5 L of oxygen plus or minus. Short of breath with activity but good at rest. No significant pain issues. No fevers. She has been up and walking in the halls but does desaturate with activity. Blood sugars moderately elevated and she is receiving 20+ units of short acting insulin daily. Functional Status: Reports: Pain Controlled, Tolerating Diet - Review of Systems General: Reports: Weakness Cardiovascular: Reports: Dyspnea on Exertion - Patient Data Vitals - Most Recent: Last Vital Signs Temp 36.3 C 04/15/20 10:47 Pulse 54 L 04/15/20 10:47 Resp 18 04/15/20 10:47 BP 141/44 H 04/15/20 10:47 Pulse Ox 92 L 04/15/20 12:36 Weight - Most Recent: 77.224 kg I&O - Last 24 Hours: Intake & Output 04/14/20 04/15/20 04/15/20 22:59 06:59 14:59 Intake Total 1100 400 Output Total 200 375 500 Balance 900 -375 -100 Lab Results Last 24 Hours: Laboratory Results - last 24 hr 04/14/20 04/14/20 04/15/20 Range/Units 16:31 21:00 07:30 POC Glucose 327 H 363 H 157 H (74-106) MG/DL 04/15/20 Range/Units 11:30 POC Glucose 364 H (74-106) MG/DL Med Orders - Current: Current Medications Acetaminophen (Tylenol) 650 mg PO Q4H PRN PRN Reason: Pain (Mild 1-3)/fever Hydrocodone Bitart/Acetaminophen ([place] 325-5 Mg) 1 tab PO Q4H PRN PRN Reason: Pain (moderate 4-6) Last Admin: 04/13/20 10:17 Dose: 1 tab Documented by: Albuterol (Ventolin Hfa) 0 gm INH Q2H PRN PRN Reason: Dyspnea Albuterol/Ipratropium (Combivent Respimat) 0 gm INH QIDRT [facility] Last Admin: 04/15/20 11:02 Dose: 2 inhalation Documented by: Apixaban (Eliquis) 2.5 mg PO BID [facility] Last Admin: 04/15/20 09:31 Dose: 2.5 mg Documented by: Benzocaine/Menthol (Cepacol Sore Throat) 1 lozenge MUCMEM 5XDAY PRN PRN Reason: Sore Throat Last Admin: 04/03/20 17:53 Dose: 1 janae Documented by: Benzonatate (Tessalon Perles) 100 mg PO TID PRN PRN Reason: Cough Carvedilol (Coreg) 6.25 mg PO BIDMEALS [facility] Last Admin: 04/15/20 07:47 Dose: 6.25 mg Documented by: Dexamethasone (Dexamethasone) 3 mg PO DAILY [facility] Stop: 04/16/20 09:01 Last Admin: 04/15/20 09:31 Dose: 3 mg Documented by: Dexamethasone (Dexamethasone) 2 mg PO DAILY [facility] Stop: 04/20/20 09:01 Dexamethasone (Dexamethasone) 1 mg PO DAILY [facility] Dextrose (Glutose 15) 15 gm PO ONETIME PRN PRN Reason: Hypoglycemia Dextrose/Water (Dextrose 50% In Water) 50 ml IVPUSH ASDIRECTED PRN PRN Reason: Hypoglycemia Diclofenac Sodium (Voltaren 1% Gel) 0 gm TOP QID [facility] Last Admin: 04/15/20 12:11 Dose: 1 applic Documented by: Diphenhydramine HCl (Benadryl) 25 mg PO Q6H PRN PRN Reason: Itching Last Admin: 03/29/20 04:12 Dose: 25 mg Documented by: Fluticasone Propionate (Flonase) 0 gm YASMINE DAILY [facility] Last Admin: 04/15/20 09:31 Dose: 2 spray Documented by: Furosemide (Lasix) 40 mg PO BIDDIURETIC [facility] Last Admin: 04/15/20 13:14 Dose: 40 mg Documented by: Gabapentin (Neurontin) 300 mg PO TID [facility] Last Admin: 04/15/20 13:14 Dose: 300 mg Documented by: Glucagon (Glucagen) 1 mg IM ASDIRECTED PRN PRN Reason: Hypoglycemia Guaifenesin (Mucinex) 600 mg PO BID [facility] Last Admin: 04/15/20 09:32 Dose: 600 mg Documented by: Guaifenesin/Dextromethorphan (Robitussin Dm) 10 ml PO Q6H PRN PRN Reason: Cough Insulin Human Lispro (Humalog) 0 unit SUBCUT QIDACANDBED [facility]; Protocol Last Admin: 04/15/20 12:11 Dose: 10 units Documented by: Losartan Potassium (Cozaar) 50 mg PO DAILY [facility] Last Admin: 04/15/20 09:32 Dose: 50 mg Documented by: Magnesium Oxide (Magnesium Oxide) 400 mg PO TID [facility] Last Admin: 04/15/20 13:14 Dose: 400 mg Documented by: Mometasone Furoate (Asmanex Hfa 200mcg) 0 gm INH BIDRT [facility] Last Admin: 04/15/20 07:22 Dose: 2 inhalation Documented by: Nystatin (Nystop) 0 gm TOP QID [facility] Last Admin: 04/15/20 12:11 Dose: 1 applic Documented by: Ondansetron HCl (Zofran) 4 mg IV Q4H PRN PRN Reason: Nausea/Vomiting Pantoprazole Sodium (Protonix) 40 mg PO ACBREAKFAST [facility] Last Admin: 04/15/20 07:45 Dose: 40 mg Documented by: Polyethylene Glycol (Miralax) 17 gm PO DAILY PRN PRN Reason: Constipation Ropinirole HCl 0.5 mg/ (Ropinirole HCl 1 mg) 1.5 mg PO BID@0900,1800 [facility] Last Admin: 04/15/20 09:40 Dose: 1.5 mg Documented by: Sodium Chloride (Saline Flush) 10 ml FLUSH ASDIRECTED PRN PRN Reason: Keep Vein Open Discontinued Medications Hydrocodone Bitart/Acetaminophen ([place] 325-5 Mg) 1 tab PO Q6H PRN PRN Reason: Pain (moderate 4-6) Last Admin: 03/29/20 14:04 Dose: 1 tab Documented by: Albuterol (Ventolin Hfa) 2 gm INH ONETIME ONE Stop: 03/29/20 00:29 Last Admin: 03/29/20 00:59 Dose: 2 inh Documented by: Albuterol/Ipratropium (Combivent Respimat) 0 gm INH QID [facility] Last Admin: 03/29/20 05:24 Dose: 2 puff Documented by: Carvedilol (Coreg) 3.125 mg PO BIDMEALS [facility] Last Admin: 04/06/20 07:56 Dose: 3.125 mg Documented by: Dexamethasone (Decadron) 6 mg IVPUSH ONETIME ONE Stop: 03/29/20 00:32 Last Admin: 03/29/20 00:59 Dose: 6 mg Documented by: Dexamethasone (Decadron) 4 mg IVPUSH Q12H [facility] Stop: 04/08/20 01:01 Dexamethasone (Decadron) 6 mg IVPUSH Q24H [facility] Stop: 04/07/20 03:16 Dexamethasone (Decadron) 6 mg IVPUSH Q24H [facility] Stop: 04/08/20 01:01 Last Admin: 03/30/20 00:28 Dose: 6 mg Documented by: Dexamethasone (Decadron) 4 mg IVPUSH Q12H [facility] Stop: 04/08/20 21:01 Last Admin: 03/31/20 08:20 Dose: 4 mg Documented by: Dexamethasone (Dexamethasone) 4 mg PO BID [facility] Last Admin: 04/08/20 09:25 Dose: 4 mg Documented by: Dexamethasone (Dexamethasone) 4 mg PO DAILY@0800 [facility] Last Admin: 04/12/20 07:40 Dose: 4 mg Documented by: Diclofenac Sodium (Voltaren 1% Gel) 4 gm TOP QID [facility] Last Admin: 03/29/20 05:24 Dose: Not Given Documented by: Enoxaparin Sodium (Lovenox) 80 mg SUBCUT BEDTIME [facility] Last Admin: 03/29/20 04:35 Dose: Not Given Documented by: Enoxaparin Sodium (Lovenox) 80 mg SUBCUT Q24H [facility] Last Admin: 04/10/20 03:08 Dose: 80 mg Documented by: Furosemide (Lasix) 20 mg IVPUSH ONETIME ONE Stop: 03/31/20 06:24 Last Admin: 03/31/20 08:24 Dose: 20 mg Documented by: Furosemide (Lasix) 40 mg IVPUSH ONETIME ONE Stop: 04/04/20 08:02 Last Admin: 04/04/20 08:35 Dose: 40 mg Documented by: Furosemide (Lasix) 40 mg IVPUSH NOW ONE Stop: 04/06/20 13:01 Furosemide (Lasix) 40 mg PO ONETIME ONE Stop: 04/06/20 12:56 Last Admin: 04/06/20 13:11 Dose: 40 mg Documented by: Furosemide (Lasix) 60 mg PO ONETIME ONE Stop: 04/09/20 11:46 Last Admin: 04/09/20 12:25 Dose: 60 mg Documented by: Sodium Chloride (Normal Saline) 1,000 mls @ 100 mls/hr IV ASDIRECTED [facility] Remdesivir 200 mg/ Sodium (Chloride) 250 mls @ 250 mls/hr IV ONETIME ONE Stop: 03/29/20 02:38 Last Admin: 03/29/20 04:55 Dose: 250 mls/hr Documented by: Remdesivir 100 mg/ Sodium (Chloride) 100 mls @ 100 mls/hr IV Q24H [facility] Stop: 04/02/20 03:59 Last Admin: 04/02/20 03:54 Dose: 100 mls/hr Documented by: Insulin Human Lispro (Humalog) 0 unit SUBCUT QIDACANDBED [facility]; Protocol Last Admin: 04/03/20 19:47 Dose: Not Given Documented by: Insulin Human Lispro (Humalog) 10 unit SUBCUT ONETIME ONE Stop: 04/03/20 18:23 Last Admin: 04/03/20 18:27 Dose: 10 unit Documented by: Lorazepam (Ativan) 0.5 mg IVPUSH ONETIME ONE Stop: 03/29/20 02:34 Last Admin: 03/29/20 02:46 Dose: 0.5 mg Documented by: Methylprednisolone Sodium Succinate (Solu-Medrol) 62.5 mg IVPUSH Q8H [facility] Last Admin: 04/04/20 11:49 Dose: 62.5 mg Documented by: Ropinirole HCl (Requip) 1.5 mg PO BID [facility] Last Admin: 03/29/20 09:43 Dose: 1.5 mg Documented by: Ropinirole HCl 0.5 mg/ (Ropinirole HCl 1 mg) 1.5 mg PO BID [facility] Stop: 04/04/20 10:00 Last Admin: 04/04/20 08:00 Dose: 1.5 mg Documented by: - Exam Quality Assessment: Supplemental Oxygen General: Alert, Oriented, Cooperative, No Acute Distress Lungs: Normal Respiratory Effort. No: Wheezing Cardiovascular: Regular Rate, Regular Rhythm GI/Abdominal Exam: Soft, No Distention Extremities: No Pedal Edema. No: Increased Warmth Skin: Warm, Dry Psy/Mental Status: Alert, Normal Affect Sepsis Event Note - Evaluation Sepsis Screening Result: No Definite Risk - Focused Exam Vital Signs: Vital Signs Temp Pulse Pulse Resp BP BP Pulse Ox 04/15/20 12:36 92 L 04/15/20 10:47 36.3 C 54 L 18 141/44 H 93 L 04/15/20 09:32 153/47 H 04/15/20 07:47 66 153/47 H 04/15/20 07:43 92 L 04/15/20 07:30 36.2 C 56 L 16 148/42 H 91 L 04/15/20 04:00 36.3 C 56 L 18 164/51 H 89 L - Problem List Review Problem List Initiated/Reviewed/Updated: Yes - My Orders Last 24 Hours: My Active Orders 04/15/20 16:30 GLUCOSE POC LAB TO COLLECT JPM [POC] QIDACANDBED 04/15/20 21:00 GLUCOSE POC LAB TO COLLECT JPM [POC] QIDACANDBED 04/16/20 05:00 BASIC METABOLIC PANEL,BMP [CHEM] Timed CRP [C-REACTIVE PROTEIN] [CHEM] Timed D-DIMER QUANTITATIVE [COAG] Timed 04/16/20 07:30 GLUCOSE POC LAB TO COLLECT JPM [POC] QIDACANDBED 04/16/20 11:30 GLUCOSE POC LAB TO COLLECT JPM [POC] QIDACANDBED 04/16/20 16:30 GLUCOSE POC LAB TO COLLECT JPM [POC] QIDACANDBED 04/16/20 21:00 GLUCOSE POC LAB TO COLLECT JPM [POC] QIDACANDBED 04/17/20 07:30 GLUCOSE POC LAB TO COLLECT JPM [POC] QIDACANDBED 04/17/20 09:00 dexAMETHasone 2 mg PO DAILY 04/17/20 11:30 GLUCOSE POC LAB TO COLLECT JPM [POC] QIDACANDBED 04/17/20 16:30 GLUCOSE POC LAB TO COLLECT JPM [POC] QIDACANDBED 04/17/20 21:00 GLUCOSE POC LAB TO COLLECT JPM [POC] QIDACANDBED 04/18/20 07:30 GLUCOSE POC LAB TO COLLECT JPM [POC] QIDACANDBED 04/18/20 11:30 GLUCOSE POC LAB TO COLLECT JPM [POC] QIDACANDBED 04/21/20 09:00 dexAMETHasone 1 mg PO DAILY - Plan Plan:: ASSESSMENT AND PLAN COVID-19 PNEUMONIA-Complicated by acute respiratory failure with hypoxia. Slow but steady improvement and now down to 4 to 6 L of supplemental oxygen. Volume status appropriate. Stable with only mild improvement since yesterday -Remdesivir complete -Continue steroids with taper -Convalescent plasma daily x3 days complete -Therapeutic dose of Lovenox 80 mg subcu daily -Increase activity as tolerated HYPOXIC AND HYPERCAPNIC RESPIRATORY FAILURE-acute on chronic. Secondary to COVID-19 and underlying COPD. -Supplemental oxygen as needed -Wean as able COPD-acute exacerbation has resolved. -Albuterol inhaler every 2 hours as needed -Mometasone inhaler twice daily -Combivent inhaler 4 times daily ACUTE KIDNEY INJURY-resolved. TYPE 2 DIABETES MELLITUS-currently on no active medical therapy. Receiving a fair amount of short acting insulin so we are to start some long-acting coverage as well. Lantus-15 units at bedtime -4 times daily glucometers -Medium-dose sliding scale Humalog MAINTENANCE ISSUES -DVT prophylaxis; enoxaparin -GI prophylaxis; PPI -Villeda catheter; not indicated -Nutrition; regular diet DISPOSITION-anticipate discharge to home with [facility] after the hospital stay Andrew Mojica MD
[2020-04-15] MEDS: Insulin Glargine,Human Rec. Analog 100 Units/ML 3 ML Pen SUBCUT SCH (21:16)
[2020-04-16] MEDS: Nystatin Topical Powder 15 GM Bottle TOP SCH ×4 (07:01→21:49)
[2020-04-16] MEDS: Diclofenac Sodium 1% Gel 100 GM Tube TOP SCH ×4 (07:02→21:49)
[2020-04-16] MEDS: Mometasone Furoate HFA 200 mcg/Puff 13 GM Inhaler INH SCH ×2 (07:20→21:47)
[2020-04-16] MEDS: Albuterol/Ipratropium 4 GM Inhalation Spray INH SCH ×4 (07:20→21:47)
[2020-04-16] MEDS: Insulin Lispro 100 Unit/ML 3 ML KwikPen SUBCUT SCH ×4 (07:52→21:48)
[2020-04-16] MEDS: guaiFENesin 600 MG Tab.ER PO SCH ×2 (08:26→21:46)
[2020-04-16] MEDS: Pantoprazole 40 MG Tab.CR PO SCH (08:26)
[2020-04-16] MEDS: Carvedilol 3.125 MG Tab PO SCH ×2 (08:26→16:51)
[2020-04-16] MEDS: ROPINIROLE PO SCH ×4 (08:26→17:01)
[2020-04-16] MEDS: Fluticasone Propionate Nasal Spray 16 GM Bottle NAS SCH (08:27)
[2020-04-16] MEDS: Losartan 50 MG Tab PO SCH (08:27)
[2020-04-16] MEDS: Dexamethasone 2 MG Tab PO SCH (08:27)
[2020-04-16] MEDS: Apixaban 2.5 MG Tab PO SCH ×2 (08:27→21:46)
[2020-04-16] MEDS: Gabapentin 300 MG Cap PO SCH ×3 (08:27→21:46)
[2020-04-16] MEDS: Furosemide 40 MG Tab PO SCH ×2 (08:27→14:27)
[2020-04-16] MEDS: Magnesium Oxide 400 MG Tab PO SCH ×3 (08:27→21:46)
--- NOTE | 2020-04-16 11:01 | PCM.PN ---
- General Info Date of Service: 04/16/20 Subjective Update: No acute events overnight. Patient reports ongoing but slow improvement. She continues to require about 5 L of supplemental oxygen. She does get short of breath with activity but it seems to be a little better each day. No fevers. No significant cough. D-dimer and CRP were noted to be higher today but clinically she is doing much better. Blood sugars remain moderately elevated and we did start some long-acting insulin last night. Functional Status: Reports: Pain Controlled, Tolerating Diet - Review of Systems General: Reports: Weakness Cardiovascular: Reports: Dyspnea on Exertion - Patient Data Vitals - Most Recent: Last Vital Signs Temp 35.1 C L 04/16/20 10:02 Pulse 49 L 04/16/20 10:02 Resp 18 04/16/20 10:02 BP 121/39 L 04/16/20 10:02 Pulse Ox 90 L 04/16/20 10:02 Weight - Most Recent: 76.839 kg I&O - Last 24 Hours: Intake & Output 04/15/20 04/16/20 04/16/20 22:59 06:59 14:59 Intake Total 1000 750 260 Balance 1000 750 260 Lab Results Last 24 Hours: Laboratory Results - last 24 hr 04/15/20 04/15/20 04/15/20 Range/Units 11:30 16:30 21:00 D-Dimer, Quantitative (0.0-500.0) ng/mL Sodium (140-148) mmol/L Potassium (3.6-5.2) mmol/L Chloride (100-108) mmol/L Carbon Dioxide (21-32) mmol/L Anion Gap (5.0-14.0) mmol/L BUN (7-18) mg/dL Creatinine (0.6-1.0) mg/dL Est Cr Clr Drug Dosing mL/min Estimated GFR (MDRD) (>60) Glucose (74-106) mg/dL POC Glucose 364 H 383 H 425 H (74-106) MG/DL Calcium (8.5-10.1) mg/dL C-Reactive Protein (0.0-0.3) mg/dL 04/16/20 04/16/20 04/16/20 Range/Units 04:43 04:43 07:23 D-Dimer, Quantitative 1892.95 H (0.0-500.0) ng/mL Sodium 139 L (140-148) mmol/L Potassium 5.0 (3.6-5.2) mmol/L Chloride 102 (100-108) mmol/L Carbon Dioxide 33 H (21-32) mmol/L Anion Gap 9.0 (5.0-14.0) mmol/L BUN 62 H (7-18) mg/dL Creatinine 1.0 (0.6-1.0) mg/dL Est Cr Clr Drug Dosing 39.63 mL/min Estimated GFR (MDRD) 54 L (>60) Glucose 148 H (74-106) mg/dL POC Glucose 142 H (74-106) MG/DL Calcium 8.2 L (8.5-10.1) mg/dL C-Reactive Protein 9.40 H (0.0-0.3) mg/dL Med Orders - Current: Current Medications Acetaminophen (Tylenol) 650 mg PO Q4H PRN PRN Reason: Pain (Mild 1-3)/fever Hydrocodone Bitart/Acetaminophen ([place] 325-5 Mg) 1 tab PO Q4H PRN PRN Reason: Pain (moderate 4-6) Last Admin: 04/13/20 10:17 Dose: 1 tab Documented by: Albuterol (Ventolin Hfa) 0 gm INH Q2H PRN PRN Reason: Dyspnea Albuterol/Ipratropium (Combivent Respimat) 0 gm INH QIDRT [facility] Last Admin: 04/16/20 10:41 Dose: 2 inhalation Documented by: Apixaban (Eliquis) 2.5 mg PO BID [facility] Last Admin: 04/16/20 08:27 Dose: 2.5 mg Documented by: Benzocaine/Menthol (Cepacol Sore Throat) 1 lozenge MUCMEM 5XDAY PRN PRN Reason: Sore Throat Last Admin: 04/03/20 17:53 Dose: 1 janae Documented by: Benzonatate (Tessalon Perles) 100 mg PO TID PRN PRN Reason: Cough Carvedilol (Coreg) 6.25 mg PO BIDMEALS [facility] Last Admin: 04/16/20 08:26 Dose: 6.25 mg Documented by: Dexamethasone (Dexamethasone) 2 mg PO DAILY [facility] Stop: 04/20/20 09:01 Dexamethasone (Dexamethasone) 1 mg PO DAILY [facility] Dextrose (Glutose 15) 15 gm PO ONETIME PRN PRN Reason: Hypoglycemia Dextrose/Water (Dextrose 50% In Water) 50 ml IVPUSH ASDIRECTED PRN PRN Reason: Hypoglycemia Diclofenac Sodium (Voltaren 1% Gel) 0 gm TOP QID [facility] Last Admin: 04/16/20 10:01 Dose: Not Given Documented by: Diphenhydramine HCl (Benadryl) 25 mg PO Q6H PRN PRN Reason: Itching Last Admin: 03/29/20 04:12 Dose: 25 mg Documented by: Fluticasone Propionate (Flonase) 0 gm YASMINE DAILY [facility] Last Admin: 04/16/20 08:27 Dose: 2 spray Documented by: Furosemide (Lasix) 40 mg PO BIDDIURETIC [facility] Last Admin: 04/16/20 08:27 Dose: 40 mg Documented by: Gabapentin (Neurontin) 300 mg PO TID [facility] Last Admin: 04/16/20 08:27 Dose: 300 mg Documented by: Glucagon (Glucagen) 1 mg IM ASDIRECTED PRN PRN Reason: Hypoglycemia Guaifenesin (Mucinex) 600 mg PO BID [facility] Last Admin: 04/16/20 08:26 Dose: 600 mg Documented by: Guaifenesin/Dextromethorphan (Robitussin Dm) 10 ml PO Q6H PRN PRN Reason: Cough Insulin Glargine (Lantus Solostar) 15 units SUBCUT BEDTIME [facility] Last Admin: 04/15/20 21:16 Dose: 15 units Documented by: Insulin Human Lispro (Humalog) 0 unit SUBCUT QIDACANDBED [facility]; Protocol Last Admin: 04/16/20 07:52 Dose: Not Given Documented by: Losartan Potassium (Cozaar) 50 mg PO DAILY [facility] Last Admin: 04/16/20 08:27 Dose: 50 mg Documented by: Magnesium Oxide (Magnesium Oxide) 400 mg PO TID [facility] Last Admin: 04/16/20 08:27 Dose: 400 mg Documented by: Mometasone Furoate (Asmanex Hfa 200mcg) 0 gm INH BIDRT [facility] Last Admin: 04/16/20 07:20 Dose: 2 inhalation Documented by: Nystatin (Nystop) 0 gm TOP QID [facility] Last Admin: 04/16/20 10:01 Dose: Not Given Documented by: Ondansetron HCl (Zofran) 4 mg IV Q4H PRN PRN Reason: Nausea/Vomiting Pantoprazole Sodium (Protonix) 40 mg PO ACBREAKFAST [facility] Last Admin: 04/16/20 08:26 Dose: 40 mg Documented by: Polyethylene Glycol (Miralax) 17 gm PO DAILY PRN PRN Reason: Constipation Ropinirole HCl 0.5 mg/ (Ropinirole HCl 1 mg) 1.5 mg PO BID@0900,1800 [facility] Last Admin: 04/16/20 08:26 Dose: 1.5 mg Documented by: Sodium Chloride (Saline Flush) 10 ml FLUSH ASDIRECTED PRN PRN Reason: Keep Vein Open Discontinued Medications Hydrocodone Bitart/Acetaminophen ([place] 325-5 Mg) 1 tab PO Q6H PRN PRN Reason: Pain (moderate 4-6) Last Admin: 03/29/20 14:04 Dose: 1 tab Documented by: Albuterol (Ventolin Hfa) 2 gm INH ONETIME ONE Stop: 03/29/20 00:29 Last Admin: 03/29/20 00:59 Dose: 2 inh Documented by: Albuterol/Ipratropium (Combivent Respimat) 0 gm INH QID [facility] Last Admin: 03/29/20 05:24 Dose: 2 puff Documented by: Carvedilol (Coreg) 3.125 mg PO BIDMEALS [facility] Last Admin: 04/06/20 07:56 Dose: 3.125 mg Documented by: Dexamethasone (Decadron) 6 mg IVPUSH ONETIME ONE Stop: 03/29/20 00:32 Last Admin: 03/29/20 00:59 Dose: 6 mg Documented by: Dexamethasone (Decadron) 4 mg IVPUSH Q12H [facility] Stop: 04/08/20 01:01 Dexamethasone (Decadron) 6 mg IVPUSH Q24H [facility] Stop: 04/07/20 03:16 Dexamethasone (Decadron) 6 mg IVPUSH Q24H [facility] Stop: 04/08/20 01:01 Last Admin: 03/30/20 00:28 Dose: 6 mg Documented by: Dexamethasone (Decadron) 4 mg IVPUSH Q12H [facility] Stop: 04/08/20 21:01 Last Admin: 03/31/20 08:20 Dose: 4 mg Documented by: Dexamethasone (Dexamethasone) 4 mg PO BID [facility] Last Admin: 04/08/20 09:25 Dose: 4 mg Documented by: Dexamethasone (Dexamethasone) 4 mg PO DAILY@0800 [facility] Last Admin: 04/12/20 07:40 Dose: 4 mg Documented by: Dexamethasone (Dexamethasone) 3 mg PO DAILY [facility] Stop: 04/16/20 09:01 Last Admin: 04/16/20 08:27 Dose: 3 mg Documented by: Diclofenac Sodium (Voltaren 1% Gel) 4 gm TOP QID [facility] Last Admin: 03/29/20 05:24 Dose: Not Given Documented by: Enoxaparin Sodium (Lovenox) 80 mg SUBCUT BEDTIME [facility] Last Admin: 03/29/20 04:35 Dose: Not Given Documented by: Enoxaparin Sodium (Lovenox) 80 mg SUBCUT Q24H [facility] Last Admin: 04/10/20 03:08 Dose: 80 mg Documented by: Furosemide (Lasix) 20 mg IVPUSH ONETIME ONE Stop: 03/31/20 06:24 Last Admin: 03/31/20 08:24 Dose: 20 mg Documented by: Furosemide (Lasix) 40 mg IVPUSH ONETIME ONE Stop: 04/04/20 08:02 Last Admin: 04/04/20 08:35 Dose: 40 mg Documented by: Furosemide (Lasix) 40 mg IVPUSH NOW ONE Stop: 04/06/20 13:01 Furosemide (Lasix) 40 mg PO ONETIME ONE Stop: 04/06/20 12:56 Last Admin: 04/06/20 13:11 Dose: 40 mg Documented by: Furosemide (Lasix) 60 mg PO ONETIME ONE Stop: 04/09/20 11:46 Last Admin: 04/09/20 12:25 Dose: 60 mg Documented by: Sodium Chloride (Normal Saline) 1,000 mls @ 100 mls/hr IV ASDIRECTED [facility] Remdesivir 200 mg/ Sodium (Chloride) 250 mls @ 250 mls/hr IV ONETIME ONE Stop: 03/29/20 02:38 Last Admin: 03/29/20 04:55 Dose: 250 mls/hr Documented by: Remdesivir 100 mg/ Sodium (Chloride) 100 mls @ 100 mls/hr IV Q24H [facility] Stop: 04/02/20 03:59 Last Admin: 04/02/20 03:54 Dose: 100 mls/hr Documented by: Insulin Human Lispro (Humalog) 0 unit SUBCUT QIDACANDBED [facility]; Protocol Last Admin: 04/03/20 19:47 Dose: Not Given Documented by: Insulin Human Lispro (Humalog) 10 unit SUBCUT ONETIME ONE Stop: 04/03/20 18:23 Last Admin: 04/03/20 18:27 Dose: 10 unit Documented by: Lorazepam (Ativan) 0.5 mg IVPUSH ONETIME ONE Stop: 03/29/20 02:34 Last Admin: 03/29/20 02:46 Dose: 0.5 mg Documented by: Methylprednisolone Sodium Succinate (Solu-Medrol) 62.5 mg IVPUSH Q8H [facility] Last Admin: 04/04/20 11:49 Dose: 62.5 mg Documented by: Ropinirole HCl (Requip) 1.5 mg PO BID [facility] Last Admin: 03/29/20 09:43 Dose: 1.5 mg Documented by: Ropinirole HCl 0.5 mg/ (Ropinirole HCl 1 mg) 1.5 mg PO BID [facility] Stop: 04/04/20 10:00 Last Admin: 04/04/20 08:00 Dose: 1.5 mg Documented by: - Exam Quality Assessment: Supplemental Oxygen General: Alert, Oriented, Cooperative, No Acute Distress Lungs: Normal Respiratory Effort, Crackles (few both lower lungs) Cardiovascular: Regular Rate, Regular Rhythm GI/Abdominal Exam: Soft, No Distention Extremities: Pedal Edema. No: Increased Warmth Skin: Warm, Dry Wound/Incisions: Other (several ulcers left lower leg near the ankle ) Psy/Mental Status: Alert, Normal Affect Sepsis Event Note - Evaluation Sepsis Screening Result: No Definite Risk - Focused Exam Vital Signs: Vital Signs Temp Pulse Pulse Resp BP BP Pulse Ox 04/16/20 10:02 35.1 C L 49 L 18 121/39 L 90 L 04/16/20 08:27 160/53 H 04/16/20 08:26 63 160/53 H 04/16/20 07:28 89 L 04/16/20 07:00 35.7 C L 63 18 160/53 H 85 L 04/16/20 03:00 36.3 C 59 L 18 143/50 H 04/16/20 02:30 91 L - Problem List Review Problem List Initiated/Reviewed/Updated: Yes - My Orders Last 24 Hours: My Active Orders 04/15/20 21:00 Insulin Glarg,Human.Rec.Analog [LantUS Solostar] 15 units SUBCUT BEDTIME 04/16/20 11:30 GLUCOSE POC LAB TO COLLECT JPM [POC] QIDACANDBED 04/16/20 16:30 GLUCOSE POC LAB TO COLLECT JPM [POC] QIDACANDBED 04/16/20 21:00 GLUCOSE POC LAB TO COLLECT JPM [POC] QIDACANDBED 04/17/20 07:30 GLUCOSE POC LAB TO COLLECT JPM [POC] QIDACANDBED 04/17/20 09:00 dexAMETHasone 2 mg PO DAILY 04/17/20 11:30 GLUCOSE POC LAB TO COLLECT JPM [POC] QIDACANDBED 04/17/20 16:30 GLUCOSE POC LAB TO COLLECT JPM [POC] QIDACANDBED 04/17/20 21:00 GLUCOSE POC LAB TO COLLECT JPM [POC] QIDACANDBED 04/18/20 07:30 GLUCOSE POC LAB TO COLLECT JPM [POC] QIDACANDBED 04/18/20 11:30 GLUCOSE POC LAB TO COLLECT JPM [POC] QIDACANDBED 04/21/20 09:00 dexAMETHasone 1 mg PO DAILY - Plan Plan:: ASSESSMENT AND PLAN COVID-19 PNEUMONIA-Complicated by acute respiratory failure with hypoxia. Slow but steady improvement though seems to have plateaued at about 4 to 5 L of oxygen. Subjectively the patient reports that she feels better each day. -Remdesivir complete -Continue steroids with taper -Convalescent plasma x3 days complete -Therapeutic dose of Lovenox 80 mg subcu daily -Increase activity as tolerated HYPOXIC AND HYPERCAPNIC RESPIRATORY FAILURE-acute on chronic. Secondary to COVID-19 and underlying COPD. -Supplemental oxygen as needed -Wean as able, goal is less than 4 L/min COPD-acute exacerbation has resolved. -Albuterol inhaler every 2 hours as needed -Mometasone inhaler twice daily -Combivent inhaler 4 times daily ACUTE KIDNEY INJURY-resolved. TYPE 2 DIABETES [id number] insulin initiated last night. -Continue Lantus-15 units at bedtime -4 times daily glucometers -Medium-dose sliding scale Humalog MAINTENANCE ISSUES -DVT prophylaxis; enoxaparin -GI prophylaxis; PPI -Villeda catheter; not indicated -Nutrition; regular diet DISPOSITION-anticipate discharge to home with [facility] after the hospital stay Andrew Mojica MD
[2020-04-16] MEDS: Insulin Glargine,Human Rec. Analog 100 Units/ML 3 ML Pen SUBCUT SCH (21:47)
[2020-04-17] MEDS: Diclofenac Sodium 1% Gel 100 GM Tube TOP SCH ×4 (07:05→21:38)
[2020-04-17] MEDS: Nystatin Topical Powder 15 GM Bottle TOP SCH ×4 (07:05→21:38)
[2020-04-17] MEDS: Albuterol/Ipratropium 4 GM Inhalation Spray INH SCH ×4 (07:21→20:13)
[2020-04-17] MEDS: Mometasone Furoate HFA 200 mcg/Puff 13 GM Inhaler INH SCH ×2 (07:21→20:11)
[2020-04-17] MEDS: Pantoprazole 40 MG Tab.CR PO SCH (07:41)
[2020-04-17] MEDS: Furosemide 40 MG Tab PO SCH (07:41)
[2020-04-17] MEDS: Insulin Lispro 100 Unit/ML 3 ML KwikPen SUBCUT SCH ×4 (09:01→21:38)
[2020-04-17] MEDS: ROPINIROLE PO SCH ×4 (09:01→17:19)
[2020-04-17] MEDS: guaiFENesin 600 MG Tab.ER PO SCH (09:01)
[2020-04-17] MEDS: Apixaban 2.5 MG Tab PO SCH ×2 (09:01→20:15)
[2020-04-17] MEDS: Magnesium Oxide 400 MG Tab PO SCH ×3 (09:02→20:15)
[2020-04-17] MEDS: Losartan 50 MG Tab PO SCH (09:02)
[2020-04-17] MEDS: Gabapentin 300 MG Cap PO SCH ×3 (09:02→20:15)
[2020-04-17] MEDS: Dexamethasone 2 MG Tab PO SCH (09:02)
[2020-04-17] MEDS: Carvedilol 3.125 MG Tab PO SCH ×3 (09:03→17:14)
[2020-04-17] MEDS: Fluticasone Propionate Nasal Spray 16 GM Bottle NAS SCH (09:04)
--- NOTE | 2020-04-17 10:49 | PCM.PN ---
- General Info Date of Service: 04/17/20 Subjective Update: No acute events overnight. Oxygenation is slightly better again today and she is down to 4 L of supplemental oxygen. She has not had any fevers. Strength is improving but she does remain somewhat weak and requires the assist of 1 to get out of the chair. Blood sugars still moderately elevated but a little better with addition of long-acting insulin. Mild bradycardia noted overnight. Functional Status: Reports: Pain Controlled, Tolerating Diet - Review of Systems General: Reports: Weakness Cardiovascular: Reports: Dyspnea on Exertion - Patient Data Vitals - Most Recent: Last Vital Signs Temp 36.8 C 04/17/20 10:20 Pulse 52 L 04/17/20 10:20 Resp 18 04/17/20 10:20 BP 152/36 H 04/17/20 10:20 Pulse Ox 90 L 04/17/20 10:20 Weight - Most Recent: 76.839 kg I&O - Last 24 Hours: Intake & Output 04/16/20 04/17/20 04/17/20 22:59 06:59 14:59 Intake Total 1740 360 Balance 1740 360 Lab Results Last 24 Hours: Laboratory Results - last 24 hr 04/16/20 04/16/20 04/16/20 Range/Units 11:23 16:21 21:00 POC Glucose 261 H 334 H 311 H (74-106) MG/DL 04/17/20 04/17/20 Range/Units 04:36 07:24 POC Glucose 147 H 104 (74-106) MG/DL Med Orders - Current: Current Medications Acetaminophen (Tylenol) 650 mg PO Q4H PRN PRN Reason: Pain (Mild 1-3)/fever Hydrocodone Bitart/Acetaminophen ([place] 325-5 Mg) 1 tab PO Q4H PRN PRN Reason: Pain (moderate 4-6) Last Admin: 04/13/20 10:17 Dose: 1 tab Documented by: Albuterol (Ventolin Hfa) 0 gm INH Q2H PRN PRN Reason: Dyspnea Albuterol/Ipratropium (Combivent Respimat) 0 gm INH QIDRT [facility] Last Admin: 04/17/20 07:21 Dose: 2 inhalation Documented by: Apixaban (Eliquis) 2.5 mg PO BID [facility] Last Admin: 04/17/20 09:01 Dose: 2.5 mg Documented by: Benzocaine/Menthol (Cepacol Sore Throat) 1 lozenge MUCMEM 5XDAY PRN PRN Reason: Sore Throat Last Admin: 04/03/20 17:53 Dose: 1 janae Documented by: Benzonatate (Tessalon Perles) 100 mg PO TID PRN PRN Reason: Cough Bumetanide (Bumex) 2 mg PO BIDDIURETIC [facility] Carvedilol (Coreg) 3.125 mg PO BIDMEALS [facility] Last Admin: 04/17/20 09:03 Dose: 3.125 mg Documented by: Dexamethasone (Dexamethasone) 2 mg PO DAILY [facility] Stop: 04/20/20 09:01 Last Admin: 04/17/20 09:02 Dose: 2 mg Documented by: Dexamethasone (Dexamethasone) 1 mg PO DAILY [facility] Dextrose (Glutose 15) 15 gm PO ONETIME PRN PRN Reason: Hypoglycemia Dextrose/Water (Dextrose 50% In Water) 50 ml IVPUSH ASDIRECTED PRN PRN Reason: Hypoglycemia Diclofenac Sodium (Voltaren 1% Gel) 0 gm TOP QID [facility] Last Admin: 04/17/20 07:05 Dose: Not Given Documented by: Diphenhydramine HCl (Benadryl) 25 mg PO Q6H PRN PRN Reason: Itching Last Admin: 03/29/20 04:12 Dose: 25 mg Documented by: Fluticasone Propionate (Flonase) 0 gm YASMINE DAILY [facility] Last Admin: 04/17/20 09:04 Dose: 2 spray Documented by: Gabapentin (Neurontin) 300 mg PO TID [facility] Last Admin: 04/17/20 09:02 Dose: 300 mg Documented by: Glucagon (Glucagen) 1 mg IM ASDIRECTED PRN PRN Reason: Hypoglycemia Guaifenesin/Dextromethorphan (Robitussin Dm) 10 ml PO Q6H PRN PRN Reason: Cough Insulin Glargine (Lantus Solostar) 25 units SUBCUT BEDTIME [facility] Insulin Human Lispro (Humalog) 0 unit SUBCUT QIDACANDBED [facility]; Protocol Last Admin: 04/17/20 09:01 Dose: Not Given Documented by: Losartan Potassium (Cozaar) 50 mg PO DAILY [facility] Last Admin: 04/17/20 09:02 Dose: 50 mg Documented by: Magnesium Oxide (Magnesium Oxide) 400 mg PO TID [facility] Last Admin: 04/17/20 09:02 Dose: 400 mg Documented by: Mometasone Furoate (Asmanex Hfa 200mcg) 0 gm INH BIDRT [facility] Last Admin: 04/17/20 07:21 Dose: 2 inhalation Documented by: Nystatin (Nystop) 0 gm TOP QID [facility] Last Admin: 04/17/20 07:05 Dose: Not Given Documented by: Ondansetron HCl (Zofran) 4 mg IV Q4H PRN PRN Reason: Nausea/Vomiting Pantoprazole Sodium (Protonix) 40 mg PO ACBREAKFAST [facility] Last Admin: 04/17/20 07:41 Dose: 40 mg Documented by: Polyethylene Glycol (Miralax) 17 gm PO DAILY PRN PRN Reason: Constipation Ropinirole HCl 0.5 mg/ (Ropinirole HCl 1 mg) 1.5 mg PO BID@0900,1800 [facility] Last Admin: 04/17/20 09:01 Dose: 1.5 mg Documented by: Sodium Chloride (Saline Flush) 10 ml FLUSH ASDIRECTED PRN PRN Reason: Keep Vein Open Spironolactone (Aldactone) 25 mg PO DAILY [facility] Discontinued Medications Hydrocodone Bitart/Acetaminophen ([place] 325-5 Mg) 1 tab PO Q6H PRN PRN Reason: Pain (moderate 4-6) Last Admin: 03/29/20 14:04 Dose: 1 tab Documented by: Albuterol (Ventolin Hfa) 2 gm INH ONETIME ONE Stop: 03/29/20 00:29 Last Admin: 03/29/20 00:59 Dose: 2 inh Documented by: Albuterol/Ipratropium (Combivent Respimat) 0 gm INH QID [facility] Last Admin: 03/29/20 05:24 Dose: 2 puff Documented by: Carvedilol (Coreg) 3.125 mg PO BIDMEALS [facility] Last Admin: 04/06/20 07:56 Dose: 3.125 mg Documented by: Carvedilol (Coreg) 6.25 mg PO BIDMEALS [facility] Last Admin: 04/17/20 09:17 Dose: Not Given Documented by: Dexamethasone (Decadron) 6 mg IVPUSH ONETIME ONE Stop: 03/29/20 00:32 Last Admin: 03/29/20 00:59 Dose: 6 mg Documented by: Dexamethasone (Decadron) 4 mg IVPUSH Q12H [facility] Stop: 04/08/20 01:01 Dexamethasone (Decadron) 6 mg IVPUSH Q24H [facility] Stop: 04/07/20 03:16 Dexamethasone (Decadron) 6 mg IVPUSH Q24H [facility] Stop: 04/08/20 01:01 Last Admin: 03/30/20 00:28 Dose: 6 mg Documented by: Dexamethasone (Decadron) 4 mg IVPUSH Q12H [facility] Stop: 04/08/20 21:01 Last Admin: 03/31/20 08:20 Dose: 4 mg Documented by: Dexamethasone (Dexamethasone) 4 mg PO BID [facility] Last Admin: 04/08/20 09:25 Dose: 4 mg Documented by: Dexamethasone (Dexamethasone) 4 mg PO DAILY@0800 [facility] Last Admin: 04/12/20 07:40 Dose: 4 mg Documented by: Dexamethasone (Dexamethasone) 3 mg PO DAILY [facility] Stop: 04/16/20 09:01 Last Admin: 04/16/20 08:27 Dose: 3 mg Documented by: Diclofenac Sodium (Voltaren 1% Gel) 4 gm TOP QID [facility] Last Admin: 03/29/20 05:24 Dose: Not Given Documented by: Enoxaparin Sodium (Lovenox) 80 mg SUBCUT BEDTIME [facility] Last Admin: 03/29/20 04:35 Dose: Not Given Documented by: Enoxaparin Sodium (Lovenox) 80 mg SUBCUT Q24H [facility] Last Admin: 04/10/20 03:08 Dose: 80 mg Documented by: Furosemide (Lasix) 20 mg IVPUSH ONETIME ONE Stop: 03/31/20 06:24 Last Admin: 03/31/20 08:24 Dose: 20 mg Documented by: Furosemide (Lasix) 40 mg IVPUSH ONETIME ONE Stop: 04/04/20 08:02 Last Admin: 04/04/20 08:35 Dose: 40 mg Documented by: Furosemide (Lasix) 40 mg IVPUSH NOW ONE Stop: 04/06/20 13:01 Furosemide (Lasix) 40 mg PO ONETIME ONE Stop: 04/06/20 12:56 Last Admin: 04/06/20 13:11 Dose: 40 mg Documented by: Furosemide (Lasix) 60 mg PO ONETIME ONE Stop: 04/09/20 11:46 Last Admin: 04/09/20 12:25 Dose: 60 mg Documented by: Furosemide (Lasix) 40 mg PO BIDDIURETIC [facility] Last Admin: 04/17/20 07:41 Dose: 40 mg Documented by: Guaifenesin (Mucinex) 600 mg PO BID [facility] Last Admin: 04/17/20 09:01 Dose: 600 mg Documented by: Sodium Chloride (Normal Saline) 1,000 mls @ 100 mls/hr IV ASDIRECTED [facility] Remdesivir 200 mg/ Sodium (Chloride) 250 mls @ 250 mls/hr IV ONETIME ONE Stop: 03/29/20 02:38 Last Admin: 03/29/20 04:55 Dose: 250 mls/hr Documented by: Remdesivir 100 mg/ Sodium (Chloride) 100 mls @ 100 mls/hr IV Q24H [facility] Stop: 04/02/20 03:59 Last Admin: 04/02/20 03:54 Dose: 100 mls/hr Documented by: Insulin Glargine (Lantus Solostar) 15 units SUBCUT BEDTIME [facility] Last Admin: 04/16/20 21:47 Dose: 15 units Documented by: Insulin Human Lispro (Humalog) 0 unit SUBCUT QIDACANDBED [facility]; Protocol Last Admin: 04/03/20 19:47 Dose: Not Given Documented by: Insulin Human Lispro (Humalog) 10 unit SUBCUT ONETIME ONE Stop: 04/03/20 18:23 Last Admin: 04/03/20 18:27 Dose: 10 unit Documented by: Lorazepam (Ativan) 0.5 mg IVPUSH ONETIME ONE Stop: 03/29/20 02:34 Last Admin: 03/29/20 02:46 Dose: 0.5 mg Documented by: Methylprednisolone Sodium Succinate (Solu-Medrol) 62.5 mg IVPUSH Q8H [facility] Last Admin: 04/04/20 11:49 Dose: 62.5 mg Documented by: Ropinirole HCl (Requip) 1.5 mg PO BID [facility] Last Admin: 03/29/20 09:43 Dose: 1.5 mg Documented by: Ropinirole HCl 0.5 mg/ (Ropinirole HCl 1 mg) 1.5 mg PO BID [facility] Stop: 04/04/20 10:00 Last Admin: 04/04/20 08:00 Dose: 1.5 mg Documented by: - Exam Quality Assessment: Supplemental Oxygen General: Alert, Oriented, Cooperative, No Acute Distress Lungs: Normal Respiratory Effort GI/Abdominal Exam: Soft, No Distention Extremities: Pedal Edema Skin: Warm, Dry Psy/Mental Status: Alert, Normal Affect Sepsis Event Note - Evaluation Sepsis Screening Result: No Definite Risk - Focused Exam Vital Signs: Vital Signs Temp Pulse Pulse Resp BP BP Pulse Ox 04/17/20 10:20 36.8 C 52 L 18 152/36 H 90 L 04/17/20 09:03 50 L 170/45 H 04/17/20 09:02 170/45 H 04/17/20 07:16 90 L 04/17/20 07:00 36.7 C 50 L 16 170/45 H 90 L 04/17/20 03:00 36.2 C 51 L 18 159/45 H 92 L 04/17/20 01:12 93 L - Problem List Review Problem List Initiated/Reviewed/Updated: Yes - My Orders Last 24 Hours: My Active Orders 04/17/20 08:30 carvediloL [Coreg] 3.125 mg PO BIDMEALS 04/17/20 09:00 Spironolactone [Aldactone] 25 mg PO DAILY dexAMETHasone 2 mg PO DAILY 04/17/20 10:46 Consult to Mining Support Worker [Consult to Diabetic Nurse Specialist] [CONS] Routine 04/17/20 11:30 GLUCOSE POC LAB TO COLLECT JPM [POC] QIDACANDBED 04/17/20 14:00 Bumetanide [Bumex] 2 mg PO BIDDIURETIC 04/17/20 16:30 GLUCOSE POC LAB TO COLLECT JPM [POC] QIDACANDBED 04/17/20 21:00 GLUCOSE POC LAB TO COLLECT JPM [POC] QIDACANDBED Insulin Glarg,Human.Rec.Analog [LantUS Solostar] 25 units SUBCUT BEDTIME 04/18/20 07:30 GLUCOSE POC LAB TO COLLECT JPM [POC] QIDACANDBED 04/18/20 11:30 GLUCOSE POC LAB TO COLLECT JPM [POC] QIDACANDBED 04/21/20 09:00 dexAMETHasone 1 mg PO DAILY - Plan Plan:: ASSESSMENT AND PLAN COVID-19 PNEUMONIA-Complicated by acute respiratory failure with hypoxia. Slow but steady improvement and she is currently at 4 L of supplemental oxygen. Subjectively the patient reports that she feels better each day. She is weak. -Remdesivir complete -Continue steroids with taper -Convalescent plasma x3 days complete -Therapeutic dose of Lovenox 80 mg subcu daily -Increase activity as tolerated -Physical therapy HYPOXIC AND HYPERCAPNIC RESPIRATORY FAILURE-acute on chronic. Secondary to COVID-19 and underlying COPD. -Supplemental oxygen as needed -Wean as able, goal is less than 4 L/min COPD-acute exacerbation has resolved. -Albuterol inhaler every 2 hours as needed -Mometasone inhaler twice daily -Combivent inhaler 4 times daily ACUTE KIDNEY INJURY-resolved. TYPE 2 DIABETES [id number] insulin dose increased. -Diabetic education -Continue Lantus-25 units at bedtime -4 times daily glucometers -Medium-dose sliding scale Humalog MAINTENANCE ISSUES -DVT prophylaxis; enoxaparin -GI prophylaxis; PPI -Villeda catheter; not indicated -Nutrition; regular diet DISPOSITION-anticipate discharge to home with [facility] after the hospital stay Andrew Mojica MD
[2020-04-17] MEDS: Spironolactone 25 MG Tab PO SCH (11:10)
[2020-04-17] MEDS: Bumetanide 1 MG Tab PO SCH (14:19)
[2020-04-17] MEDS: Insulin Glargine,Human Rec. Analog 100 Units/ML 3 ML Pen SUBCUT SCH (21:36)
[2020-04-18] MEDS: Nystatin Topical Powder 15 GM Bottle TOP SCH ×4 (06:00→21:40)
[2020-04-18] MEDS: Diclofenac Sodium 1% Gel 100 GM Tube TOP SCH ×4 (06:00→21:40)
[2020-04-18] MEDS: Acetaminophen/HYDROcodone 325-5 MG Tab PO PRN (07:26)
[2020-04-18] MEDS: Albuterol/Ipratropium 4 GM Inhalation Spray INH SCH ×4 (07:32→20:53)
[2020-04-18] MEDS: Mometasone Furoate HFA 200 mcg/Puff 13 GM Inhaler INH SCH ×2 (07:32→20:53)
[2020-04-18] MEDS: Pantoprazole 40 MG Tab.CR PO SCH (07:54)
[2020-04-18] MEDS: Insulin Lispro 100 Unit/ML 3 ML KwikPen SUBCUT SCH ×4 (08:36→20:56)
[2020-04-18] MEDS: Bumetanide 1 MG Tab PO SCH ×2 (08:40→13:45)
[2020-04-18] MEDS: Carvedilol 3.125 MG Tab PO SCH ×2 (08:41→16:48)
[2020-04-18] MEDS: Spironolactone 25 MG Tab PO SCH (08:46)
[2020-04-18] MEDS: Losartan 50 MG Tab PO SCH (08:47)
[2020-04-18] MEDS: Dexamethasone 2 MG Tab PO SCH (08:56)
[2020-04-18] MEDS: Apixaban 2.5 MG Tab PO SCH ×2 (08:56→20:54)
[2020-04-18] MEDS: Fluticasone Propionate Nasal Spray 16 GM Bottle NAS SCH (08:57)
[2020-04-18] MEDS: Gabapentin 300 MG Cap PO SCH ×3 (08:58→20:57)
[2020-04-18] MEDS: Magnesium Oxide 400 MG Tab PO SCH ×3 (08:58→20:57)
[2020-04-18] MEDS: ROPINIROLE PO SCH ×4 (08:59→18:13)
--- NOTE | 2020-04-18 10:48 | PCM.PN ---
- General Info Date of Service: 04/18/20 Subjective Update: No acute events overnight. Stable but still requiring 4 L of supplemental oxygen. Weak but slowly improving. She does have dyspnea with moderate exertion. No fevers. Blood sugars have been fairly well controlled. Did talk to the patient and her cnkloeia-br-ohk Anitha about discharge planning. Functional Status: Reports: Pain Controlled, Tolerating Diet - Review of Systems General: Reports: Weakness - Patient Data Vitals - Most Recent: Last Vital Signs Temp 35.8 C L 04/18/20 07:00 Pulse 54 L 04/18/20 08:41 Resp 18 04/18/20 07:00 BP 129/32 L 04/18/20 08:47 Pulse Ox 86 L 04/18/20 07:00 Weight - Most Recent: 75.478 kg I&O - Last 24 Hours: Intake & Output 04/17/20 04/18/20 04/18/20 22:59 06:59 14:59 Intake Total 420 320 Balance 420 320 Lab Results Last 24 Hours: Laboratory Results - last 24 hr 04/17/20 04/17/20 04/17/20 Range/Units 11:30 16:30 21:14 POC Glucose 202 H 250 H 281 H (74-106) MG/DL 04/18/20 04/18/20 Range/Units 07:30 08:15 POC Glucose 59 L 118 H (74-106) MG/DL Med Orders - Current: Current Medications Acetaminophen (Tylenol) 650 mg PO Q4H PRN PRN Reason: Pain (Mild 1-3)/fever Hydrocodone Bitart/Acetaminophen ([place] 325-5 Mg) 1 tab PO Q4H PRN PRN Reason: Pain (moderate 4-6) Last Admin: 04/18/20 07:26 Dose: 1 tab Documented by: Albuterol (Ventolin Hfa) 0 gm INH Q2H PRN PRN Reason: Dyspnea Albuterol/Ipratropium (Combivent Respimat) 0 gm INH QIDRT [facility] Last Admin: 04/18/20 07:32 Dose: 2 puff Documented by: Apixaban (Eliquis) 2.5 mg PO BID [facility] Last Admin: 04/18/20 08:56 Dose: 2.5 mg Documented by: Benzocaine/Menthol (Cepacol Sore Throat) 1 lozenge MUCMEM 5XDAY PRN PRN Reason: Sore Throat Last Admin: 04/03/20 17:53 Dose: 1 janae Documented by: Benzonatate (Tessalon Perles) 100 mg PO TID PRN PRN Reason: Cough Bumetanide (Bumex) 2 mg PO BIDDIURETIC [facility] Last Admin: 04/18/20 08:40 Dose: 2 mg Documented by: Carvedilol (Coreg) 3.125 mg PO BIDMEALS [facility] Last Admin: 04/18/20 08:41 Dose: Not Given Documented by: Dexamethasone (Dexamethasone) 2 mg PO DAILY [facility] Stop: 04/20/20 09:01 Last Admin: 04/18/20 08:56 Dose: 2 mg Documented by: Dexamethasone (Dexamethasone) 1 mg PO DAILY [facility] Dextrose (Glutose 15) 15 gm PO ONETIME PRN PRN Reason: Hypoglycemia Dextrose/Water (Dextrose 50% In Water) 50 ml IVPUSH ASDIRECTED PRN PRN Reason: Hypoglycemia Diclofenac Sodium (Voltaren 1% Gel) 0 gm TOP QID [facility] Last Admin: 04/18/20 09:58 Dose: Not Given Documented by: Diphenhydramine HCl (Benadryl) 25 mg PO Q6H PRN PRN Reason: Itching Last Admin: 03/29/20 04:12 Dose: 25 mg Documented by: Fluticasone Propionate (Flonase) 0 gm YASMINE DAILY [facility] Last Admin: 04/18/20 08:57 Dose: 2 spray Documented by: Gabapentin (Neurontin) 300 mg PO TID [facility] Last Admin: 04/18/20 08:58 Dose: 300 mg Documented by: Glucagon (Glucagen) 1 mg IM ASDIRECTED PRN PRN Reason: Hypoglycemia Guaifenesin/Dextromethorphan (Robitussin Dm) 10 ml PO Q6H PRN PRN Reason: Cough Insulin Glargine (Lantus Solostar) 25 units SUBCUT BEDTIME [facility] Last Admin: 04/17/20 21:36 Dose: 25 units Documented by: Insulin Human Lispro (Humalog) 0 unit SUBCUT QIDACANDBED [facility]; Protocol Losartan Potassium (Cozaar) 50 mg PO DAILY [facility] Last Admin: 04/18/20 08:47 Dose: Not Given Documented by: Magnesium Oxide (Magnesium Oxide) 400 mg PO TID [facility] Last Admin: 04/18/20 08:58 Dose: 400 mg Documented by: Mometasone Furoate (Asmanex Hfa 200mcg) 0 gm INH BIDRT [facility] Last Admin: 04/18/20 07:32 Dose: 2 puff Documented by: Nystatin (Nystop) 0 gm TOP QID [facility] Last Admin: 04/18/20 09:58 Dose: Not Given Documented by: Ondansetron HCl (Zofran) 4 mg IV Q4H PRN PRN Reason: Nausea/Vomiting Pantoprazole Sodium (Protonix) 40 mg PO ACBREAKFAST [facility] Last Admin: 04/18/20 07:54 Dose: 40 mg Documented by: Polyethylene Glycol (Miralax) 17 gm PO DAILY PRN PRN Reason: Constipation Ropinirole HCl 0.5 mg/ (Ropinirole HCl 1 mg) 1.5 mg PO BID@0900,1800 [facility] Last Admin: 04/18/20 08:59 Dose: 1.5 mg Documented by: Sodium Chloride (Saline Flush) 10 ml FLUSH ASDIRECTED PRN PRN Reason: Keep Vein Open Spironolactone (Aldactone) 25 mg PO DAILY [facility] Last Admin: 04/18/20 08:46 Dose: 25 mg Documented by: Discontinued Medications Hydrocodone Bitart/Acetaminophen ([place] 325-5 Mg) 1 tab PO Q6H PRN PRN Reason: Pain (moderate 4-6) Last Admin: 03/29/20 14:04 Dose: 1 tab Documented by: Albuterol (Ventolin Hfa) 2 gm INH ONETIME ONE Stop: 03/29/20 00:29 Last Admin: 03/29/20 00:59 Dose: 2 inh Documented by: Albuterol/Ipratropium (Combivent Respimat) 0 gm INH QID [facility] Last Admin: 03/29/20 05:24 Dose: 2 puff Documented by: Carvedilol (Coreg) 3.125 mg PO BIDMEALS [facility] Last Admin: 04/06/20 07:56 Dose: 3.125 mg Documented by: Carvedilol (Coreg) 6.25 mg PO BIDMEALS [facility] Last Admin: 04/17/20 09:17 Dose: Not Given Documented by: Dexamethasone (Decadron) 6 mg IVPUSH ONETIME ONE Stop: 03/29/20 00:32 Last Admin: 03/29/20 00:59 Dose: 6 mg Documented by: Dexamethasone (Decadron) 4 mg IVPUSH Q12H [facility] Stop: 04/08/20 01:01 Dexamethasone (Decadron) 6 mg IVPUSH Q24H [facility] Stop: 04/07/20 03:16 Dexamethasone (Decadron) 6 mg IVPUSH Q24H [facility] Stop: 04/08/20 01:01 Last Admin: 03/30/20 00:28 Dose: 6 mg Documented by: Dexamethasone (Decadron) 4 mg IVPUSH Q12H [facility] Stop: 04/08/20 21:01 Last Admin: 03/31/20 08:20 Dose: 4 mg Documented by: Dexamethasone (Dexamethasone) 4 mg PO BID [facility] Last Admin: 04/08/20 09:25 Dose: 4 mg Documented by: Dexamethasone (Dexamethasone) 4 mg PO DAILY@0800 [facility] Last Admin: 04/12/20 07:40 Dose: 4 mg Documented by: Dexamethasone (Dexamethasone) 3 mg PO DAILY [facility] Stop: 04/16/20 09:01 Last Admin: 04/16/20 08:27 Dose: 3 mg Documented by: Diclofenac Sodium (Voltaren 1% Gel) 4 gm TOP QID [facility] Last Admin: 03/29/20 05:24 Dose: Not Given Documented by: Enoxaparin Sodium (Lovenox) 80 mg SUBCUT BEDTIME [facility] Last Admin: 03/29/20 04:35 Dose: Not Given Documented by: Enoxaparin Sodium (Lovenox) 80 mg SUBCUT Q24H [facility] Last Admin: 04/10/20 03:08 Dose: 80 mg Documented by: Furosemide (Lasix) 20 mg IVPUSH ONETIME ONE Stop: 03/31/20 06:24 Last Admin: 03/31/20 08:24 Dose: 20 mg Documented by: Furosemide (Lasix) 40 mg IVPUSH ONETIME ONE Stop: 04/04/20 08:02 Last Admin: 04/04/20 08:35 Dose: 40 mg Documented by: Furosemide (Lasix) 40 mg IVPUSH NOW ONE Stop: 04/06/20 13:01 Furosemide (Lasix) 40 mg PO ONETIME ONE Stop: 04/06/20 12:56 Last Admin: 04/06/20 13:11 Dose: 40 mg Documented by: Furosemide (Lasix) 60 mg PO ONETIME ONE Stop: 04/09/20 11:46 Last Admin: 04/09/20 12:25 Dose: 60 mg Documented by: Furosemide (Lasix) 40 mg PO BIDDIURETIC [facility] Last Admin: 04/17/20 07:41 Dose: 40 mg Documented by: Guaifenesin (Mucinex) 600 mg PO BID [facility] Last Admin: 04/17/20 09:01 Dose: 600 mg Documented by: Sodium Chloride (Normal Saline) 1,000 mls @ 100 mls/hr IV ASDIRECTED [facility] Remdesivir 200 mg/ Sodium (Chloride) 250 mls @ 250 mls/hr IV ONETIME ONE Stop: 03/29/20 02:38 Last Admin: 03/29/20 04:55 Dose: 250 mls/hr Documented by: Remdesivir 100 mg/ Sodium (Chloride) 100 mls @ 100 mls/hr IV Q24H [facility] Stop: 04/02/20 03:59 Last Admin: 04/02/20 03:54 Dose: 100 mls/hr Documented by: Insulin Glargine (Lantus Solostar) 15 units SUBCUT BEDTIME [facility] Last Admin: 04/16/20 21:47 Dose: 15 units Documented by: Insulin Human Lispro (Humalog) 0 unit SUBCUT QIDACANDBED [facility]; Protocol Last Admin: 04/03/20 19:47 Dose: Not Given Documented by: Insulin Human Lispro (Humalog) 0 unit SUBCUT QIDACANDBED [facility]; Protocol Last Admin: 04/18/20 08:36 Dose: Not Given Documented by: Insulin Human Lispro (Humalog) 10 unit SUBCUT ONETIME ONE Stop: 04/03/20 18:23 Last Admin: 04/03/20 18:27 Dose: 10 unit Documented by: Lorazepam (Ativan) 0.5 mg IVPUSH ONETIME ONE Stop: 03/29/20 02:34 Last Admin: 03/29/20 02:46 Dose: 0.5 mg Documented by: Methylprednisolone Sodium Succinate (Solu-Medrol) 62.5 mg IVPUSH Q8H [facility] Last Admin: 04/04/20 11:49 Dose: 62.5 mg Documented by: Ropinirole HCl (Requip) 1.5 mg PO BID [facility] Last Admin: 03/29/20 09:43 Dose: 1.5 mg Documented by: Ropinirole HCl 0.5 mg/ (Ropinirole HCl 1 mg) 1.5 mg PO BID [facility] Stop: 04/04/20 10:00 Last Admin: 04/04/20 08:00 Dose: 1.5 mg Documented by: - Exam Quality Assessment: Supplemental Oxygen General: Alert, Oriented, Cooperative, No Acute Distress Lungs: Normal Respiratory Effort. No: Wheezing GI/Abdominal Exam: Soft, No Distention Extremities: Pedal Edema. No: Increased Warmth Skin: Warm, Dry Psy/Mental Status: Alert, Normal Affect Sepsis Event Note - Evaluation Sepsis Screening Result: No Definite Risk - Focused Exam Vital Signs: Vital Signs Temp Pulse Pulse Resp BP BP Pulse Ox 04/18/20 08:47 129/32 L 04/18/20 08:41 54 L 129/32 L 04/18/20 07:00 35.8 C L 55 L 18 132/50 L 86 L 04/18/20 03:00 37.0 C 48 L 17 129/43 L 90 L - Problem List Review Problem List Initiated/Reviewed/Updated: Yes - My Orders Last 24 Hours: My Active Orders 04/17/20 10:46 Consult to Family Day Carer [Consult to Diabetic Nurse Specialist] [CONS] Routine 04/17/20 14:00 Bumetanide [Bumex] 2 mg PO BIDDIURETIC 04/17/20 21:00 Insulin Glarg,Human.Rec.Analog [LantUS Solostar] 25 units SUBCUT BEDTIME 04/18/20 11:00 Insulin Lispro [HumaLOG] See Protocol SUBCUT QIDACANDBED 04/18/20 11:30 GLUCOSE POC LAB TO COLLECT JPM [POC] QIDACANDBED 04/18/20 16:30 GLUCOSE POC LAB TO COLLECT JPM [POC] QIDACANDBED 04/18/20 21:00 GLUCOSE POC LAB TO COLLECT JPM [POC] QIDACANDBED 04/19/20 05:00 BASIC METABOLIC PANEL,BMP [CHEM] Timed CBC W/O DIFF,HEMOGRAM [HEME] Timed (1) CRP [C-REACTIVE PROTEIN] [CHEM] Timed D-DIMER QUANTITATIVE [COAG] Timed 04/19/20 07:30 GLUCOSE POC LAB TO COLLECT JPM [POC] QIDACANDBED 04/19/20 11:30 GLUCOSE POC LAB TO COLLECT JPM [POC] QIDACANDBED 04/19/20 16:30 GLUCOSE POC LAB TO COLLECT JPM [POC] QIDACANDBED 04/19/20 21:00 GLUCOSE POC LAB TO COLLECT JPM [POC] QIDACANDBED 04/20/20 07:30 GLUCOSE POC LAB TO COLLECT JPM [POC] QIDACANDBED 04/20/20 11:30 GLUCOSE POC LAB TO COLLECT JPM [POC] QIDACANDBED 04/20/20 16:30 GLUCOSE POC LAB TO COLLECT JPM [POC] QIDACANDBED 04/20/20 21:00 GLUCOSE POC LAB TO COLLECT JPM [POC] QIDACANDBED 04/21/20 07:30 GLUCOSE POC LAB TO COLLECT JPM [POC] QIDACANDBED 04/21/20 09:00 dexAMETHasone 1 mg PO DAILY 04/21/20 11:30 GLUCOSE POC LAB TO COLLECT JPM [POC] QIDACANDBED 04/21/20 16:30 GLUCOSE POC LAB TO COLLECT JPM [POC] QIDACANDBED 04/21/20 21:00 GLUCOSE POC LAB TO COLLECT JPM [POC] QIDACANDBED 04/22/20 07:30 GLUCOSE POC LAB TO COLLECT JPM [POC] QIDACANDBED 04/22/20 11:30 GLUCOSE POC LAB TO COLLECT JPM [POC] QIDACANDBED 04/22/20 16:30 GLUCOSE POC LAB TO COLLECT JPM [POC] QIDACANDBED 04/22/20 21:00 GLUCOSE POC LAB TO COLLECT JPM [POC] QIDACANDBED 04/23/20 07:30 GLUCOSE POC LAB TO COLLECT JPM [POC] QIDACANDBED 04/23/20 11:30 GLUCOSE POC LAB TO COLLECT JPM [POC] QIDACANDBED - Plan Plan:: ASSESSMENT AND PLAN COVID-19 PNEUMONIA-Complicated by acute respiratory failure with hypoxia. Slow but steady improvement and she is currently at 4 L of supplemental oxygen. Weakness is the biggest roadblock at this time but is improving each day. Dyspnea with exertion is improving as well. -Remdesivir complete -Continue steroids with taper -Convalescent plasma x3 days complete -Apixaban -Increase activity as tolerated -Physical therapy HYPOXIC AND HYPERCAPNIC RESPIRATORY FAILURE-acute on chronic. Secondary to COVID-19 and underlying COPD. -Supplemental oxygen as needed -Wean as able, goal is less than 4 L/min COPD-acute exacerbation has resolved. -Albuterol inhaler every 2 hours as needed -Mometasone inhaler twice daily -Combivent inhaler 4 times daily ACUTE KIDNEY INJURY-resolved. TYPE 2 DIABETES [id number] insulin dose increased. -Diabetic education -Continue Lantus-25 units at bedtime -4 times daily glucometers -Low dose sliding scale Humalog MAINTENANCE ISSUES -DVT prophylaxis; apixaban -GI prophylaxis; PPI -Villeda catheter; not indicated -Nutrition; regular diet DISPOSITION-anticipate discharge to home with [facility] home [facility] after the hospital stay. I anticipate discharge home on Monday. Andrew Mojica MD
[2020-04-18] MEDS: Insulin Glargine,Human Rec. Analog 100 Units/ML 3 ML Pen SUBCUT SCH (20:54)
[2020-04-19] MEDS: Diclofenac Sodium 1% Gel 100 GM Tube TOP SCH ×4 (06:16→21:34)
[2020-04-19] MEDS: Nystatin Topical Powder 15 GM Bottle TOP SCH ×4 (06:16→21:34)
[2020-04-19] MEDS: Mometasone Furoate HFA 200 mcg/Puff 13 GM Inhaler INH SCH ×2 (07:04→19:59)
[2020-04-19] MEDS: Albuterol/Ipratropium 4 GM Inhalation Spray INH SCH ×4 (07:04→19:59)
[2020-04-19] MEDS: Carvedilol 3.125 MG Tab PO SCH ×2 (08:12→16:47)
[2020-04-19] MEDS: Pantoprazole 40 MG Tab.CR PO SCH (08:14)
[2020-04-19] MEDS: Bumetanide 1 MG Tab PO SCH ×2 (08:14→13:41)
[2020-04-19] MEDS: Insulin Lispro 100 Unit/ML 3 ML KwikPen SUBCUT SCH ×4 (09:12→21:30)
[2020-04-19] MEDS: Spironolactone 25 MG Tab PO SCH (09:13)
[2020-04-19] MEDS: Losartan 50 MG Tab PO SCH (09:13)
[2020-04-19] MEDS: Apixaban 2.5 MG Tab PO SCH ×2 (09:14→19:59)
[2020-04-19] MEDS: Fluticasone Propionate Nasal Spray 16 GM Bottle NAS SCH (09:14)
[2020-04-19] MEDS: Dexamethasone 2 MG Tab PO SCH (09:14)
[2020-04-19] MEDS: Magnesium Oxide 400 MG Tab PO SCH ×3 (09:15→19:59)
[2020-04-19] MEDS: ROPINIROLE PO SCH ×4 (09:15→17:26)
[2020-04-19] MEDS: Gabapentin 300 MG Cap PO SCH ×3 (09:15→19:59)
--- NOTE | 2020-04-19 12:02 | PCM.PN ---
- General Info Date of Service: 04/19/20 Subjective Update: No acute events overnight. Oxygenation has been stable. Blood sugars have been fairly well controlled. She has not had any fevers. Dyspnea slowly improving. Strength slowly improving. Appetite has been good. Functional Status: Reports: Pain Controlled, Tolerating Diet - Review of Systems General: Reports: Weakness - Patient Data Vitals - Most Recent: Last Vital Signs Temp 36.8 C 04/19/20 10:26 Pulse 56 L 04/19/20 10:26 Resp 20 04/19/20 10:26 BP 174/45 H 04/19/20 10:26 Pulse Ox 92 L 04/19/20 10:26 Weight - Most Recent: 75.75 kg I&O - Last 24 Hours: Intake & Output 04/18/20 04/19/20 04/19/20 22:59 06:59 14:59 Intake Total 520 400 Balance 520 400 Lab Results Last 24 Hours: Laboratory Results - last 24 hr 04/18/20 04/18/20 04/19/20 Range/Units 16:30 21:00 04:15 WBC 5.4 (4.5-11.0) K/uL RBC 3.52 (3.30-5.50) M/uL Hgb 9.5 L (12.0-15.0) g/dL Hct 31.7 L (36.0-48.0) % MCV 90 (80-98) fL MCH 27 (27-31) pg MCHC 30 L (32-36) % Plt Count 99 L (150-400) K/uL D-Dimer, Quantitative (0.0-500.0) ng/mL Sodium (140-148) mmol/L Potassium (3.6-5.2) mmol/L Chloride (100-108) mmol/L Carbon Dioxide (21-32) mmol/L Anion Gap (5.0-14.0) mmol/L BUN (7-18) mg/dL Creatinine (0.6-1.0) mg/dL Est Cr Clr Drug Dosing mL/min Estimated GFR (MDRD) (>60) Glucose (74-106) mg/dL POC Glucose 325 H 306 H (74-106) MG/DL Calcium (8.5-10.1) mg/dL C-Reactive Protein (0.0-0.3) mg/dL 04/19/20 04/19/20 04/19/20 Range/Units 04:15 04:15 07:30 WBC (4.5-11.0) K/uL RBC (3.30-5.50) M/uL Hgb (12.0-15.0) g/dL Hct (36.0-48.0) % MCV (80-98) fL MCH (27-31) pg MCHC (32-36) % Plt Count (150-400) K/uL D-Dimer, Quantitative 2676.61 H (0.0-500.0) ng/mL Sodium 143 (140-148) mmol/L Potassium 4.9 (3.6-5.2) mmol/L Chloride 105 (100-108) mmol/L Carbon Dioxide 34 H (21-32) mmol/L Anion Gap 8.9 (5.0-14.0) mmol/L BUN 69 H (7-18) mg/dL Creatinine 1.1 H (0.6-1.0) mg/dL Est Cr Clr Drug Dosing 36.02 mL/min Estimated GFR (MDRD) 49 L (>60) Glucose 97 (74-106) mg/dL POC Glucose 84 (74-106) MG/DL Calcium 7.9 L (8.5-10.1) mg/dL C-Reactive Protein 5.38 H (0.0-0.3) mg/dL 04/19/20 Range/Units 11:30 WBC (4.5-11.0) K/uL RBC (3.30-5.50) M/uL Hgb (12.0-15.0) g/dL Hct (36.0-48.0) % MCV (80-98) fL MCH (27-31) pg MCHC (32-36) % Plt Count (150-400) K/uL D-Dimer, Quantitative (0.0-500.0) ng/mL Sodium (140-148) mmol/L Potassium (3.6-5.2) mmol/L Chloride (100-108) mmol/L Carbon Dioxide (21-32) mmol/L Anion Gap (5.0-14.0) mmol/L BUN (7-18) mg/dL Creatinine (0.6-1.0) mg/dL Est Cr Clr Drug Dosing mL/min Estimated GFR (MDRD) (>60) Glucose (74-106) mg/dL POC Glucose 213 H (74-106) MG/DL Calcium (8.5-10.1) mg/dL C-Reactive Protein (0.0-0.3) mg/dL Med Orders - Current: Current Medications Acetaminophen (Tylenol) 650 mg PO Q4H PRN PRN Reason: Pain (Mild 1-3)/fever Hydrocodone Bitart/Acetaminophen ([place] 325-5 Mg) 1 tab PO Q4H PRN PRN Reason: Pain (moderate 4-6) Last Admin: 04/18/20 07:26 Dose: 1 tab Documented by: Albuterol (Ventolin Hfa) 0 gm INH Q2H PRN PRN Reason: Dyspnea Albuterol/Ipratropium (Combivent Respimat) 0 gm INH QIDRT [facility] [place] Last Admin: 04/19/20 10:34 Dose: 2 puff Documented by: Apixaban (Eliquis) 2.5 mg PO BID [facility] [place] Last Admin: 04/19/20 09:14 Dose: 2.5 mg Documented by: Benzocaine/Menthol (Cepacol Sore Throat) 1 lozenge MUCMEM 5XDAY PRN PRN Reason: Sore Throat Last Admin: 04/03/20 17:53 Dose: 1 janae Documented by: Benzonatate (Tessalon Perles) 100 mg PO TID PRN PRN Reason: Cough Bumetanide (Bumex) 2 mg PO BIDDIURETIC [facility] [place] Last Admin: 04/19/20 08:14 Dose: 2 mg Documented by: Carvedilol (Coreg) 3.125 mg PO BIDMEALS [facility] [place] Last Admin: 04/19/20 08:12 Dose: 3.125 mg Documented by: Dexamethasone (Dexamethasone) 2 mg PO DAILY [facility] [place] Stop: 04/20/20 09:01 Last Admin: 04/19/20 09:14 Dose: 2 mg Documented by: Dexamethasone (Dexamethasone) 1 mg PO DAILY [facility] [place] Dextrose (Glutose 15) 15 gm PO ONETIME PRN PRN Reason: Hypoglycemia Dextrose/Water (Dextrose 50% In Water) 50 ml IVPUSH ASDIRECTED PRN PRN Reason: Hypoglycemia Diclofenac Sodium (Voltaren 1% Gel) 0 gm TOP QID [facility] [place] Last Admin: 04/19/20 10:00 Dose: Not Given Documented by: Diphenhydramine HCl (Benadryl) 25 mg PO Q6H PRN PRN Reason: Itching Last Admin: 03/29/20 04:12 Dose: 25 mg Documented by: Fluticasone Propionate (Flonase) 0 gm YASMINE DAILY [facility] [place] Last Admin: 04/19/20 09:14 Dose: 2 spray Documented by: Gabapentin (Neurontin) 300 mg PO TID [facility] [place] Last Admin: 04/19/20 09:15 Dose: 300 mg Documented by: Glucagon (Glucagen) 1 mg IM ASDIRECTED PRN PRN Reason: Hypoglycemia Guaifenesin/Dextromethorphan (Robitussin Dm) 10 ml PO Q6H PRN PRN Reason: Cough Insulin Glargine (Lantus Solostar) 25 units SUBCUT BEDTIME [facility] [place] Last Admin: 04/18/20 20:54 Dose: 25 units Documented by: Insulin Human Lispro (Humalog) 0 unit SUBCUT QIDACANDBED [facility] [place]; Protocol Last Admin: 04/19/20 09:12 Dose: Not Given Documented by: Losartan Potassium (Cozaar) 50 mg PO DAILY [facility] [place] Last Admin: 04/19/20 09:13 Dose: 50 mg Documented by: Magnesium Oxide (Magnesium Oxide) 400 mg PO TID [facility] [place] Last Admin: 04/19/20 09:15 Dose: 400 mg Documented by: Mometasone Furoate (Asmanex Hfa 200mcg) 0 gm INH BIDRT [facility] [place] Last Admin: 04/19/20 07:04 Dose: 2 puff Documented by: Nystatin (Nystop) 0 gm TOP QID [facility] [place] Last Admin: 04/19/20 09:59 Dose: Not Given Documented by: Ondansetron HCl (Zofran) 4 mg IV Q4H PRN PRN Reason: Nausea/Vomiting Pantoprazole Sodium (Protonix) 40 mg PO ACBREAKFAST [facility] [place] Last Admin: 04/19/20 08:14 Dose: 40 mg Documented by: Polyethylene Glycol (Miralax) 17 gm PO DAILY PRN PRN Reason: Constipation Ropinirole HCl 0.5 mg/ (Ropinirole HCl 1 mg) 1.5 mg PO BID@0900,1800 [facility] [place] Last Admin: 04/19/20 09:15 Dose: 1.5 mg Documented by: Sodium Chloride (Saline Flush) 10 ml FLUSH ASDIRECTED PRN PRN Reason: Keep Vein Open Spironolactone (Aldactone) 25 mg PO DAILY [facility] [place] Last Admin: 04/19/20 09:13 Dose: 25 mg Documented by: Discontinued Medications Hydrocodone Bitart/Acetaminophen ([place] 325-5 Mg) 1 tab PO Q6H PRN PRN Reason: Pain (moderate 4-6) Last Admin: 03/29/20 14:04 Dose: 1 tab Documented by: Albuterol (Ventolin Hfa) 2 gm INH ONETIME ONE Stop: 03/29/20 00:29 Last Admin: 03/29/20 00:59 Dose: 2 inh Documented by: Albuterol/Ipratropium (Combivent Respimat) 0 gm INH QID [facility] [place] Last Admin: 03/29/20 05:24 Dose: 2 puff Documented by: Carvedilol (Coreg) 3.125 mg PO BIDMEALS [facility] [place] Last Admin: 04/06/20 07:56 Dose: 3.125 mg Documented by: Carvedilol (Coreg) 6.25 mg PO BIDMEALS [facility] [place] Last Admin: 04/17/20 09:17 Dose: Not Given Documented by: Dexamethasone (Decadron) 6 mg IVPUSH ONETIME ONE Stop: 03/29/20 00:32 Last Admin: 03/29/20 00:59 Dose: 6 mg Documented by: Dexamethasone (Decadron) 4 mg IVPUSH Q12H [facility] [place] Stop: 04/08/20 01:01 Dexamethasone (Decadron) 6 mg IVPUSH Q24H [facility] [place] Stop: 04/07/20 03:16 Dexamethasone (Decadron) 6 mg IVPUSH Q24H [facility] [place] Stop: 04/08/20 01:01 Last Admin: 03/30/20 00:28 Dose: 6 mg Documented by: Dexamethasone (Decadron) 4 mg IVPUSH Q12H [facility] [place] Stop: 04/08/20 21:01 Last Admin: 03/31/20 08:20 Dose: 4 mg Documented by: Dexamethasone (Dexamethasone) 4 mg PO BID [facility] [place] Last Admin: 04/08/20 09:25 Dose: 4 mg Documented by: Dexamethasone (Dexamethasone) 4 mg PO DAILY@0800 [facility] [place] Last Admin: 04/12/20 07:40 Dose: 4 mg Documented by: Dexamethasone (Dexamethasone) 3 mg PO DAILY [facility] [place] Stop: 04/16/20 09:01 Last Admin: 04/16/20 08:27 Dose: 3 mg Documented by: Diclofenac Sodium (Voltaren 1% Gel) 4 gm TOP QID [facility] [place] Last Admin: 03/29/20 05:24 Dose: Not Given Documented by: Enoxaparin Sodium (Lovenox) 80 mg SUBCUT BEDTIME [facility] [place] Last Admin: 03/29/20 04:35 Dose: Not Given Documented by: Enoxaparin Sodium (Lovenox) 80 mg SUBCUT Q24H [facility] [place] Last Admin: 04/10/20 03:08 Dose: 80 mg Documented by: Furosemide (Lasix) 20 mg IVPUSH ONETIME ONE Stop: 03/31/20 06:24 Last Admin: 03/31/20 08:24 Dose: 20 mg Documented by: Furosemide (Lasix) 40 mg IVPUSH ONETIME ONE Stop: 04/04/20 08:02 Last Admin: 04/04/20 08:35 Dose: 40 mg Documented by: Furosemide (Lasix) 40 mg IVPUSH NOW ONE Stop: 04/06/20 13:01 Furosemide (Lasix) 40 mg PO ONETIME ONE Stop: 04/06/20 12:56 Last Admin: 04/06/20 13:11 Dose: 40 mg Documented by: Furosemide (Lasix) 60 mg PO ONETIME ONE Stop: 04/09/20 11:46 Last Admin: 04/09/20 12:25 Dose: 60 mg Documented by: Furosemide (Lasix) 40 mg PO BIDDIURETIC [facility] [place] Last Admin: 04/17/20 07:41 Dose: 40 mg Documented by: Guaifenesin (Mucinex) 600 mg PO BID [facility] [place] Last Admin: 04/17/20 09:01 Dose: 600 mg Documented by: Sodium Chloride (Normal Saline) 1,000 mls @ 100 mls/hr IV ASDIRECTED [facility] [place] Remdesivir 200 mg/ Sodium (Chloride) 250 mls @ 250 mls/hr IV ONETIME ONE Stop: 03/29/20 02:38 Last Admin: 03/29/20 04:55 Dose: 250 mls/hr Documented by: Remdesivir 100 mg/ Sodium (Chloride) 100 mls @ 100 mls/hr IV Q24H [facility] [place] Stop: 04/02/20 03:59 Last Admin: 04/02/20 03:54 Dose: 100 mls/hr Documented by: Insulin Glargine (Lantus Solostar) 15 units SUBCUT BEDTIME [facility] [place] Last Admin: 04/16/20 21:47 Dose: 15 units Documented by: Insulin Human Lispro (Humalog) 0 unit SUBCUT QIDACANDBED [facility] [place]; Protocol Last Admin: 04/03/20 19:47 Dose: Not Given Documented by: Insulin Human Lispro (Humalog) 0 unit SUBCUT QIDACANDBED [facility] [place]; Protocol Last Admin: 04/18/20 08:36 Dose: Not Given Documented by: Insulin Human Lispro (Humalog) 10 unit SUBCUT ONETIME ONE Stop: 04/03/20 18:23 Last Admin: 04/03/20 18:27 Dose: 10 unit Documented by: Lorazepam (Ativan) 0.5 mg IVPUSH ONETIME ONE Stop: 03/29/20 02:34 Last Admin: 03/29/20 02:46 Dose: 0.5 mg Documented by: Methylprednisolone Sodium Succinate (Solu-Medrol) 62.5 mg IVPUSH Q8H [facility] [place] Last Admin: 04/04/20 11:49 Dose: 62.5 mg Documented by: Ropinirole HCl (Requip) 1.5 mg PO BID [facility] [place] Last Admin: 03/29/20 09:43 Dose: 1.5 mg Documented by: Ropinirole HCl 0.5 mg/ (Ropinirole HCl 1 mg) 1.5 mg PO BID [facility] [place] Stop: 04/04/20 10:00 Last Admin: 04/04/20 08:00 Dose: 1.5 mg Documented by: - Exam Quality Assessment: Supplemental Oxygen General: Alert, Oriented, Cooperative, No Acute Distress Lungs: Normal Respiratory Effort. No: Wheezing GI/Abdominal Exam: Soft, No Distention Extremities: Pedal Edema. No: Increased Warmth Psy/Mental Status: Alert, Normal Affect Sepsis Event Note - Evaluation Sepsis Screening Result: No Definite Risk - Focused Exam Vital Signs: Vital Signs Temp Pulse Pulse Resp BP BP Pulse Ox 04/19/20 10:26 36.8 C 56 L 20 174/45 H 92 L 04/19/20 09:13 173/56 H 04/19/20 08:12 57 L 173/53 H 04/19/20 07:00 36.8 C 50 L 20 173/53 H 89 L 04/19/20 02:51 36.4 C 60 20 152/49 H 90 L - Problem List & Annotations (1) Pneumonia due to 2019 novel coronavirus SNOMED Code(s): 292622252641724225 Code(s): U07.1 - COVID-19; J12.82 - PNEUMONIA DUE TO CORONAVIRUS DISEASE 2019 Status: Acute Current Visit: Yes (2) Acute and chronic respiratory failure with hypoxia SNOMED Code(s): 21098180, 506492140 Code(s): J96.21 - ACUTE AND CHRONIC RESPIRATORY FAILURE WITH HYPOXIA Status: Acute Current Visit: Yes (3) Acute exacerbation of chronic obstructive pulmonary disease SNOMED Code(s): 826430173 Code(s): J44.1 - CHRONIC OBSTRUCTIVE PULMONARY DISEASE W (ACUTE) EXACERBATION Status: Acute Current Visit: Yes (4) Acute kidney injury SNOMED Code(s): 02410828, 18678768 Code(s): N17.9 - ACUTE KIDNEY FAILURE, UNSPECIFIED Status: Chronic Current Visit: Yes (5) Diabetes mellitus, type 2 SNOMED Code(s): 25309644 Code(s): E11.9 - TYPE 2 DIABETES MELLITUS WITHOUT COMPLICATIONS Status: Chronic Priority: Low Current Visit: No Qualifiers: Diabetes mellitus intermediate designer insulin use: without intermediate designer use Diabetes mellitus complication status: with other specified complication Qualified Code(s): E11.69 - Type 2 diabetes mellitus with other specified complication (6) Rheumatoid arthritis SNOMED Code(s): 56912170 Code(s): M06.9 - RHEUMATOID ARTHRITIS, UNSPECIFIED Status: Chronic Current Visit: No Qualifiers: Rheumatoid arthritis location: unspecified site Rheumatoid factor presence: unspecified presence Qualified Code(s): M06.9 - Rheumatoid arthritis, unspecified - Problem List Review Problem List Initiated/Reviewed/Updated: Yes - My Orders Last 24 Hours: My Active Orders 04/19/20 16:30 GLUCOSE POC LAB TO COLLECT JPM [POC] QIDACANDBED 04/19/20 21:00 GLUCOSE POC LAB TO COLLECT JPM [POC] QIDACANDBED 04/20/20 07:00 Ready for Discharge [RC] PER UNIT ROUTINE 04/20/20 07:30 GLUCOSE POC LAB TO COLLECT JPM [POC] QIDACANDBED 04/20/20 11:30 GLUCOSE POC LAB TO COLLECT JPM [POC] QIDACANDBED 04/20/20 16:30 GLUCOSE POC LAB TO COLLECT JPM [POC] QIDACANDBED 04/20/20 21:00 GLUCOSE POC LAB TO COLLECT JPM [POC] QIDACANDBED 04/21/20 07:30 GLUCOSE POC LAB TO COLLECT JPM [POC] QIDACANDBED 04/21/20 09:00 dexAMETHasone 1 mg PO DAILY 04/21/20 11:30 GLUCOSE POC LAB TO COLLECT JPM [POC] QIDACANDBED 04/21/20 16:30 GLUCOSE POC LAB TO COLLECT JPM [POC] QIDACANDBED 04/21/20 21:00 GLUCOSE POC LAB TO COLLECT JPM [POC] QIDACANDBED 04/22/20 07:30 GLUCOSE POC LAB TO COLLECT JPM [POC] QIDACANDBED 04/22/20 11:30 GLUCOSE POC LAB TO COLLECT JPM [POC] QIDACANDBED 04/22/20 16:30 GLUCOSE POC LAB TO COLLECT JPM [POC] QIDACANDBED 04/22/20 21:00 GLUCOSE POC LAB TO COLLECT JPM [POC] QIDACANDBED 04/23/20 07:30 GLUCOSE POC LAB TO COLLECT JPM [POC] QIDACANDBED 04/23/20 11:30 GLUCOSE POC LAB TO COLLECT JPM [POC] QIDACANDBED - Plan Plan:: ASSESSMENT AND PLAN COVID-19 PNEUMONIA-Complicated by acute respiratory failure with hypoxia. Slow but steady improvement and she is currently at 4 L of supplemental oxygen. Objectively and subjectively she is slowly improving. -Remdesivir complete -Continue steroids with taper -Convalescent plasma complete -Apixaban x2 weeks after hospital discharge -Increase activity as tolerated -Physical therapy HYPOXIC AND HYPERCAPNIC RESPIRATORY FAILURE-acute on chronic. Secondary to COVID-19 and underlying COPD. -Supplemental oxygen as needed -Wean as able, goal is less than 4 L/min COPD-acute exacerbation has resolved. -Albuterol inhaler every 2 hours as needed -Mometasone inhaler twice daily -Combivent inhaler 4 times daily ACUTE KIDNEY INJURY-resolved. TYPE 2 DIABETES SVINHOQE-[id number]-[id number] insulin dose increased. Patient will be going home with just long-acting insulin and hopefully we can taper her dose as her steroids are tapered. -Diabetic education -Continue Lantus-25 units at bedtime -4 times daily glucometers -Low dose sliding scale Humalog MAINTENANCE ISSUES -DVT prophylaxis; apixaban -GI prophylaxis; PPI -Villeda catheter; not indicated -Nutrition; regular diet DISPOSITION-anticipate discharge to home with [facility] home [facility] after the hospital stay. I anticipate discharge home on Monday. Andrew Mojica MD
--- NOTE | 2020-04-19 12:03 | PCM.DCSUM1 ---
Discharge Summary - Hospital Course Brief History: 75-year-old female with history of controlled type 2 diabetes mellitus, oxygen dependent COPD, rheumatoid arthritis on hydroxychloroquine who presented with progressive shortness of breath, cough, weakness and fever. She was admitted for management of COVID-19 pneumonia with acute on chronic respiratory failure. Diagnosis: Stroke: No - Discharge Data Discharge Date: 04/20/20 Discharge Disposition: Home, W Home Health Agency 06 Condition: Fair - Referral to Home Health Date of Face to Face Encounter: 04/19/20 Reason for Homebound Status: Travel taxing due to dyspnea and weakness with COVID-19 pneumonia Primary Care Physician: Es Stewart DO Skilled Need: Nursing, physical therapy, occupational therapy and home health aide - Discharge Diagnosis/Problem(s) (1) Pneumonia due to 2019 novel coronavirus SNOMED Code(s): 392029735250087870 ICD Code: U07.1 - COVID-19; J12.82 - PNEUMONIA DUE TO CORONAVIRUS DISEASE 2019 Status: Acute Current Visit: Yes (2) Acute and chronic respiratory failure with hypoxia SNOMED Code(s): 56070589, 245203186 ICD Code: J96.21 - ACUTE AND CHRONIC RESPIRATORY FAILURE WITH HYPOXIA Status: Acute Current Visit: Yes (3) Acute exacerbation of chronic obstructive pulmonary disease SNOMED Code(s): 268858558 ICD Code: J44.1 - CHRONIC OBSTRUCTIVE PULMONARY DISEASE W (ACUTE) EXA CERBATION Status: Acute Current Visit: Yes (4) Acute kidney injury SNOMED Code(s): 64601334, [id number] ICD Code: N17.9 - ACUTE KIDNEY FAILURE, UNSPECIFIED Status: Chronic Current Visit: Yes (5) Diabetes mellitus, type 2 SNOMED Code(s): 10212292 ICD Code: E11.9 - TYPE 2 DIABETES MELLITUS WITHOUT COMPLICATIONS Status: Chronic Priority: Low Current Visit: No Qualifiers: Diabetes mellitus custodial insulin use: without buttermaker use Diabetes mellitus complication status: with other specified complication Qualified Code(s): E11.69 - Type 2 diabetes mellitus with other specified complication (6) Rheumatoid arthritis SNOMED Code(s): 35484609 ICD Code: M06.9 - RHEUMATOID ARTHRITIS, UNSPECIFIED Status: Chronic Current Visit: No Qualifiers: Rheumatoid arthritis location: unspecified site Rheumatoid factor presence: unspecified presence Qualified Code(s): M06.9 - Rheumatoid arthritis, unspecified - Patient Summary/Data Consults: Consultations 04/01/20 10:52 Consult to Physician [CONS] Routine Consulting Provider: Andrew Deng Call Completed to Consulting Physician: Yes Reason for Consult: lower ext stasis ulcers Person Notified: RW Date Notified: 04/01/20 Special Instructions: will see on 04/06/20 09:12 PT Evaluation and Treatment [CONS] Routine Please Evaluate and Treat. PT Reason for Consult: Strengthening Pending Discharge: Yes Discharge Disposition: Home w Home Health Special Instructions: Covid positive This query below is only for informational purposes and is not editable. Admission Diagnosis/Problem: Hypoxia 04/17/20 10:46 Consult to [employer] [Consult to Diabetic Nurse Specialist] [CONS] Routine Comment: Physician Instructions: Reason for Consult: new insulin start Person Notified: Regina Hospital Course: Radha presented to the emergency room with progressive cough, shortness of breath, myalgias and weakness in the setting of COVID-19 infection. Work-up in the emergency room revealed increased hypoxia from baseline as well as an elevated D-dimer and CRP consistent with her known Covid infection. Chest x-ray showed bilateral changes consistent with Covid pneumonia. She was started on dexamethasone as well as remdesivir and convalescent plasma and she was admitted to the hospital for further management. Over the first couple of days she had a progressive decline in her respiratory status with increasing supplemental oxygen requirements and increasing subjective shortness of breath. She also had significant wheezing suggesting an exacerbation of her COPD. Initially she was on the dexamethasone but later we did change this to Solu-Medrol for a few days and then back to the dexamethasone. The patient fairly quickly after admission progressed to the point that she needed 15 L of supplemental oxygen. Fortunately her respiratory status stabilized here and she did not require additional quantities of supplemental oxygen. She never did require noninvasive ventilation but was close. She completed 3 days of convalescent plasma and 5 days of remdesivir. Her steroids were continued at high doses for the first 10 days or so and then we started to taper them down. She has made slow but very steady progress as she has recovered from Covid. We have been able to wean her supplemental oxygen down to about 4 L at the time of hospital discharge. She has been restarted on her usual medications including diuretics and her volume status has been very appropriate. She has been maintained with systemic anticoagulation utilizing either enoxaparin or apixaban throughout the course of the hospital stay. The plan is to continue the apixaban for 2 weeks after hospital discharge because of her persistently elevated D-dimer as well as a history of DVT and PE. Unfortunately she has developed steroid-induced hyperglycemia/worsening of her diabetes. We have needed to use insulin to manage the hyperglycemia. Plan is for her to go home using only a single dose of Lantus at bedtime. She will hopefully be able to taper this down as her steroid taper is completed. On the morning of discharge she will receive 2 mg of dexamethasone and then will be on 1 mg daily for 4 days after that before her taper is complete. She is able to be independent in her room with a walker. Her strength and endurance have been improving but she does remain weak compared to baseline. She was interested in continuing home health care after hospital discharge and we will be increasing her services temporarily as she continues to recover from her Covid pneumonia. - Patient Instructions Diet: Diabetic Diet Activity: As Tolerated Showering/Bathing: May Shower Notify Provider of: Fever, Increased Pain Other/Special Instructions: 1. You were in the hospital for management of COVID- 19 pneumonia complicated by acute on chronic respiratory failure as well as an exacerbation of your COPD. Your condition has been improving after a prolonged hospital stay. You have completed treatment with remdesivir. We are tapering your steroids and I recommend that you take dexamethasone 1 mg daily for 4 days starting on Monday. This will complete your steroid taper. Because you have a history of blood clots and the COVID-19 infection can significantly increase your risk for blood clot formation I recommend that you take apixaban (Eliquis) 2.5 mg twice daily for 2 weeks. This will help reduce your risk of blood clots. You may stop taking the medication after 2 weeks. You may resume your usual activity as tolerated but it will take some time to build up your strength and endurance after this severe infection. 2. Your blood sugars have been elevated during the hospital stay, probably secondary to the steroid use. Hopefully the blood sugars will trend down as your steroids are reduced. At the time of discharge I would recommend that you take Lantus 25 units at bedtime. Please check your blood sugars at least once daily in the morning if not 2-3 times per day. If your morning blood sugar is 100 or less please reduce your next dose of Lantus by 5 units. If your blood sugar is greater than 100 you can continue to take the 25 units. If you have any questions you can talk to the home care nurses or contact Dr. Stewart. 3. I have placed a referral to home health care. They will provide nursing, physical therapy, occupational therapy and home health aide services to help ease your transition home after the long hospital stay. 4. Follow up with Dr Deng for additional wound care management in addition to the dressing changes that will be performed by home care. 5. Dressing change - both lower legs - change dressings twice weekly (Mon/Thur or /Fri) -remove all dressings and cleanse with saline. Pat dry. Cover venous stasis ulcers with Allevyn and secure with [place] wraps if needed. - Discharge Plan *PRESCRIPTION DRUG MONITORING PROGRAM REVIEWED*: Not Applicable *COPY OF PRESCRIPTION DRUG MONITORING REPORT IN PATIENT KELLY: Not Applicable Prescriptions/Med Rec: dexAMETHasone [Dexamethasone] 1 mg PO DAILY #2 tablet Apixaban [Eliquis] 2.5 mg PO BID #28 tablet Insulin Glarg,Human.Rec.Analog [Lantus Solostar] 25 units SUBCUT BEDTIME #1 pen Home Medications: Home Meds Hydroxychloroquine Sulfate 200 mg PO DAILY 05/09/13 [History] cycloSPORINE [Restasis] 1 drop EYEBOTH BID 05/09/13 [History] Albuterol [Proventil Neb Soln] 3 ml INH Q6H PRN 09/22/15 [History] Albuterol [Ventolin HFA] 2 puff INH Q6H PRN 09/22/15 [History] Magnesium Oxide 400 mg PO TID 05/17/16 [History] Diclofenac Sodium [Voltaren] 4 gm TOP QID 09/26/18 [History] Gabapentin [Neurontin] 300 - 600 mg PO TID 09/26/18 [History] Triamcinolone Acetonide [Kenalog 0.1% Crm] 1 applic TOP TID PRN 09/26/18 [History] Ferrous Sulfate 325 mg PO TIDAC 12/24/18 [History] rOPINIRole [Requip] 1.5 tab PO BID 12/24/18 [History] Spironolactone [Aldactone] 25 mg PO DAILY 11/27/19 [History] Calcium Carbonate/Vitamin D3 [Caltrate 600+D 1500 MG-400 Units] 1 tab PO BID #60 tablet 02/16/19 [Rx] Losartan [Cozaar] 50 mg PO DAILY #30 tablet 03/30/19 [Rx] Acetaminophen/HYDROcodone [[place] 325-5 MG] 1 tab PO Q6H PRN 06/06/19 [History] Alendronate Sodium [Fosamax] 70 mg PO Q7D 06/06/19 [History] Cholecalciferol (Vitamin D3) [Vitamin D3] 1,000 unit PO BID 06/06/19 [History] Cyclobenzaprine [Flexeril] 5 mg PO TID 06/06/19 [History] Fluticasone Propionate [Flonase] 2 spray IH DAILY 06/06/19 [History] Pantoprazole [ProTONIX] 40 mg PO DAILY 06/06/19 [History] carvediloL [Coreg] 3.125 mg PO BID 06/06/19 [History] Bumetanide [Bumex] 2 mg PO BID #60 tab 06/08/19 [Rx] Apixaban [Eliquis] 2.5 mg PO BID #28 tablet 04/19/20 [Rx] Insulin Glarg,Human.Rec.Analog [Lantus Solostar] 25 units SUBCUT BEDTIME #1 pen 04/19/20 [Rx] dexAMETHasone [Dexamethasone] 1 mg PO DAILY #2 tablet 04/19/20 [Rx] Oxygen Therapy Mode: Nasal Cannula (2-4 L/min) Patient Handouts: What You Should Know About COVID-19 to Protect Yourself and Others - CDC, Dexamethasone tablets Referrals: Es Stewart DO [Primary Care Provider] - 04/28/20 1:40 pm (Please arrive 15 minutes early to register for your appointment.) Zunilda Sloan [Registered Dietitian] - 04/28/20 2:30 pm - Discharge Summary/Plan Comment DC Time >30 min.: Yes (60-complex d/c, coordinate home care, covid 19) - Patient Data Vitals - Most Recent: Last Vital Signs Temp 36.8 C 04/19/20 10:26 Pulse 56 L 04/19/20 10:26 Resp 20 04/19/20 10:26 BP 174/45 H 04/19/20 10:26 Pulse Ox 92 L 04/19/20 10:26 Weight - Most Recent: 75.75 kg I&O - Last 24 hours: Intake & Output 04/18/20 04/19/20 04/19/20 22:59 06:59 14:59 Intake Total 520 400 Balance 520 400 Lab Results - Last 24 hrs: Laboratory Results - last 24 hr 04/18/20 04/18/20 04/19/20 Range/Units 16:30 21:00 04:15 WBC 5.4 (4.5-11.0) K/uL RBC 3.52 (3.30-5.50) M/uL Hgb 9.5 L (12.0-15.0) g/dL Hct 31.7 L (36.0-48.0) % MCV 90 (80-98) fL MCH 27 (27-31) pg MCHC 30 L (32-36) % Plt Count 99 L (150-400) K/uL D-Dimer, Quantitative (0.0-500.0) ng/mL Sodium (140-148) mmol/L Potassium (3.6-5.2) mmol/L Chloride (100-108) mmol/L Carbon Dioxide (21-32) mmol/L Anion Gap (5.0-14.0) mmol/L BUN (7-18) mg/dL Creatinine (0.6-1.0) mg/dL Est Cr Clr Drug Dosing mL/min Estimated GFR (MDRD) (>60) Glucose (74-106) mg/dL POC Glucose 325 H 306 H (74-106) MG/DL Calcium (8.5-10.1) mg/dL C-Reactive Protein (0.0-0.3) mg/dL 04/19/20 04/19/20 04/19/20 Range/Units 04:15 04:15 07:30 WBC (4.5-11.0) K/uL RBC (3.30-5.50) M/uL Hgb (12.0-15.0) g/dL Hct (36.0-48.0) % MCV (80-98) fL MCH (27-31) pg MCHC (32-36) % Plt Count (150-400) K/uL D-Dimer, Quantitative 2676.61 H (0.0-500.0) ng/mL Sodium 143 (140-148) mmol/L Potassium 4.9 (3.6-5.2) mmol/L Chloride 105 (100-108) mmol/L Carbon Dioxide 34 H (21-32) mmol/L Anion Gap 8.9 (5.0-14.0) mmol/L BUN 69 H (7-18) mg/dL Creatinine 1.1 H (0.6-1.0) mg/dL Est Cr Clr Drug Dosing 36.02 mL/min Estimated GFR (MDRD) 49 L (>60) Glucose 97 (74-106) mg/dL POC Glucose 84 (74-106) MG/DL Calcium 7.9 L (8.5-10.1) mg/dL C-Reactive Protein 5.38 H (0.0-0.3) mg/dL 04/19/20 Range/Units 11:30 WBC (4.5-11.0) K/uL RBC (3.30-5.50) M/uL Hgb (12.0-15.0) g/dL Hct (36.0-48.0) % MCV (80-98) fL MCH (27-31) pg MCHC (32-36) % Plt Count (150-400) K/uL D-Dimer, Quantitative (0.0-500.0) ng/mL Sodium (140-148) mmol/L Potassium (3.6-5.2) mmol/L Chloride (100-108) mmol/L Carbon Dioxide (21-32) mmol/L Anion Gap (5.0-14.0) mmol/L BUN (7-18) mg/dL Creatinine (0.6-1.0) mg/dL Est Cr Clr Drug Dosing mL/min Estimated GFR (MDRD) (>60) Glucose (74-106) mg/dL POC Glucose 213 H (74-106) MG/DL Calcium (8.5-10.1) mg/dL C-Reactive Protein (0.0-0.3) mg/dL Med Orders - Current: Current Medications Acetaminophen (Tylenol) 650 mg PO Q4H PRN PRN Reason: Pain (Mild 1-3)/fever Hydrocodone Bitart/Acetaminophen ([place] 325-5 Mg) 1 tab PO Q4H PRN PRN Reason: Pain (moderate 4-6) Last Admin: 04/18/20 07:26 Dose: 1 tab Documented by: Albuterol (Ventolin Hfa) 0 gm INH Q2H PRN PRN Reason: Dyspnea Albuterol/Ipratropium (Combivent Respimat) 0 gm INH QIDRT [facility] Last Admin: 04/19/20 10:34 Dose: 2 puff Documented by: Apixaban (Eliquis) 2.5 mg PO BID [facility] Last Admin: 04/19/20 09:14 Dose: 2.5 mg Documented by: Benzocaine/Menthol (Cepacol Sore Throat) 1 lozenge MUCMEM 5XDAY PRN PRN Reason: Sore Throat Last Admin: 04/03/20 17:53 Dose: 1 janae Documented by: Benzonatate (Tessalon Perles) 100 mg PO TID PRN PRN Reason: Cough Bumetanide (Bumex) 2 mg PO BIDDIURETIC [facility] Last Admin: 04/19/20 08:14 Dose: 2 mg Documented by: Carvedilol (Coreg) 3.125 mg PO BIDMEALS [facility] Last Admin: 04/19/20 08:12 Dose: 3.125 mg Documented by: Dexamethasone (Dexamethasone) 2 mg PO DAILY [facility] Stop: 04/20/20 09:01 Last Admin: 04/19/20 09:14 Dose: 2 mg Documented by: Dexamethasone (Dexamethasone) 1 mg PO DAILY [facility] Dextrose (Glutose 15) 15 gm PO ONETIME PRN PRN Reason: Hypoglycemia Dextrose/Water (Dextrose 50% In Water) 50 ml IVPUSH ASDIRECTED PRN PRN Reason: Hypoglycemia Diclofenac Sodium (Voltaren 1% Gel) 0 gm TOP QID [facility] Last Admin: 04/19/20 10:00 Dose: Not Given Documented by: Diphenhydramine HCl (Benadryl) 25 mg PO Q6H PRN PRN Reason: Itching Last Admin: 03/29/20 04:12 Dose: 25 mg Documented by: Fluticasone Propionate (Flonase) 0 gm YASMINE DAILY [facility] Last Admin: 04/19/20 09:14 Dose: 2 spray Documented by: Gabapentin (Neurontin) 300 mg PO TID [facility] Last Admin: 04/19/20 09:15 Dose: 300 mg Documented by: Glucagon (Glucagen) 1 mg IM ASDIRECTED PRN PRN Reason: Hypoglycemia Guaifenesin/Dextromethorphan (Robitussin Dm) 10 ml PO Q6H PRN PRN Reason: Cough Insulin Glargine (Lantus Solostar) 25 units SUBCUT BEDTIME [facility] Last Admin: 04/18/20 20:54 Dose: 25 units Documented by: Insulin Human Lispro (Humalog) 0 unit SUBCUT QIDACANDBED [facility]; Protocol Last Admin: 04/19/20 09:12 Dose: Not Given Documented by: Losartan Potassium (Cozaar) 50 mg PO DAILY [facility] Last Admin: 04/19/20 09:13 Dose: 50 mg Documented by: Magnesium Oxide (Magnesium Oxide) 400 mg PO TID [facility] Last Admin: 04/19/20 09:15 Dose: 400 mg Documented by: Mometasone Furoate (Asmanex Hfa 200mcg) 0 gm INH BIDRT [facility] Last Admin: 04/19/20 07:04 Dose: 2 puff Documented by: Nystatin (Nystop) 0 gm TOP QID [facility] Last Admin: 04/19/20 09:59 Dose: Not Given Documented by: Ondansetron HCl (Zofran) 4 mg IV Q4H PRN PRN Reason: Nausea/Vomiting Pantoprazole Sodium (Protonix) 40 mg PO ACBREAKFAST [facility] Last Admin: 04/19/20 08:14 Dose: 40 mg Documented by: Polyethylene Glycol (Miralax) 17 gm PO DAILY PRN PRN Reason: Constipation Ropinirole HCl 0.5 mg/ (Ropinirole HCl 1 mg) 1.5 mg PO BID@0900,1800 [facility] Last Admin: 04/19/20 09:15 Dose: 1.5 mg Documented by: Sodium Chloride (Saline Flush) 10 ml FLUSH ASDIRECTED PRN PRN Reason: Keep Vein Open Spironolactone (Aldactone) 25 mg PO DAILY [facility] Last Admin: 04/19/20 09:13 Dose: 25 mg Documented by: Discontinued Medications Hydrocodone Bitart/Acetaminophen ([place] 325-5 Mg) 1 tab PO Q6H PRN PRN Reason: Pain (moderate 4-6) Last Admin: 03/29/20 14:04 Dose: 1 tab Documented by: Albuterol (Ventolin Hfa) 2 gm INH ONETIME ONE Stop: 03/29/20 00:29 Last Admin: 03/29/20 00:59 Dose: 2 inh Documented by: Albuterol/Ipratropium (Combivent Respimat) 0 gm INH QID [facility] Last Admin: 03/29/20 05:24 Dose: 2 puff Documented by: Carvedilol (Coreg) 3.125 mg PO BIDMEALS [facility] Last Admin: 04/06/20 07:56 Dose: 3.125 mg Documented by: Carvedilol (Coreg) 6.25 mg PO BIDMEALS [facility] Last Admin: 04/17/20 09:17 Dose: Not Given Documented by: Dexamethasone (Decadron) 6 mg IVPUSH ONETIME ONE Stop: 03/29/20 00:32 Last Admin: 03/29/20 00:59 Dose: 6 mg Documented by: Dexamethasone (Decadron) 4 mg IVPUSH Q12H [facility] Stop: 04/08/20 01:01 Dexamethasone (Decadron) 6 mg IVPUSH Q24H [facility] Stop: 04/07/20 03:16 Dexamethasone (Decadron) 6 mg IVPUSH Q24H [facility] Stop: 04/08/20 01:01 Last Admin: 03/30/20 00:28 Dose: 6 mg Documented by: Dexamethasone (Decadron) 4 mg IVPUSH Q12H [facility] Stop: 04/08/20 21:01 Last Admin: 03/31/20 08:20 Dose: 4 mg Documented by: Dexamethasone (Dexamethasone) 4 mg PO BID [facility] Last Admin: 04/08/20 09:25 Dose: 4 mg Documented by: Dexamethasone (Dexamethasone) 4 mg PO DAILY@0800 [facility] Last Admin: 04/12/20 07:40 Dose: 4 mg Documented by: Dexamethasone (Dexamethasone) 3 mg PO DAILY [facility] Stop: 04/16/20 09:01 Last Admin: 04/16/20 08:27 Dose: 3 mg Documented by: Diclofenac Sodium (Voltaren 1% Gel) 4 gm TOP QID [facility] Last Admin: 03/29/20 05:24 Dose: Not Given Documented by: Enoxaparin Sodium (Lovenox) 80 mg SUBCUT BEDTIME [facility] Last Admin: 03/29/20 04:35 Dose: Not Given Documented by: Enoxaparin Sodium (Lovenox) 80 mg SUBCUT Q24H [facility] Last Admin: 04/10/20 03:08 Dose: 80 mg Documented by: Furosemide (Lasix) 20 mg IVPUSH ONETIME ONE Stop: 03/31/20 06:24 Last Admin: 03/31/20 08:24 Dose: 20 mg Documented by: Furosemide (Lasix) 40 mg IVPUSH ONETIME ONE Stop: 04/04/20 08:02 Last Admin: 04/04/20 08:35 Dose: 40 mg Documented by: Furosemide (Lasix) 40 mg IVPUSH NOW ONE Stop: 04/06/20 13:01 Furosemide (Lasix) 40 mg PO ONETIME ONE Stop: 04/06/20 12:56 Last Admin: 04/06/20 13:11 Dose: 40 mg Documented by: Furosemide (Lasix) 60 mg PO ONETIME ONE Stop: 04/09/20 11:46 Last Admin: 04/09/20 12:25 Dose: 60 mg Documented by: Furosemide (Lasix) 40 mg PO BIDDIURETIC [facility] Last Admin: 04/17/20 07:41 Dose: 40 mg Documented by: Guaifenesin (Mucinex) 600 mg PO BID [facility] Last Admin: 04/17/20 09:01 Dose: 600 mg Documented by: Sodium Chloride (Normal Saline) 1,000 mls @ 100 mls/hr IV ASDIRECTED [facility] Remdesivir 200 mg/ Sodium (Chloride) 250 mls @ 250 mls/hr IV ONETIME ONE Stop: 03/29/20 02:38 Last Admin: 03/29/20 04:55 Dose: 250 mls/hr Documented by: Remdesivir 100 mg/ Sodium (Chloride) 100 mls @ 100 mls/hr IV Q24H [facility] Stop: 04/02/20 03:59 Last Admin: 04/02/20 03:54 Dose: 100 mls/hr Documented by: Insulin Glargine (Lantus Solostar) 15 units SUBCUT BEDTIME [facility] Last Admin: 04/16/20 21:47 Dose: 15 units Documented by: Insulin Human Lispro (Humalog) 0 unit SUBCUT QIDACANDBED [facility]; Protocol Last Admin: 04/03/20 19:47 Dose: Not Given Documented by: Insulin Human Lispro (Humalog) 0 unit SUBCUT QIDACANDBED [facility]; Protocol Last Admin: 04/18/20 08:36 Dose: Not Given Documented by: Insulin Human Lispro (Humalog) 10 unit SUBCUT ONETIME ONE Stop: 04/03/20 18:23 Last Admin: 04/03/20 18:27 Dose: 10 unit Documented by: Lorazepam (Ativan) 0.5 mg IVPUSH ONETIME ONE Stop: 03/29/20 02:34 Last Admin: 03/29/20 02:46 Dose: 0.5 mg Documented by: Methylprednisolone Sodium Succinate (Solu-Medrol) 62.5 mg IVPUSH Q8H [facility] Last Admin: 04/04/20 11:49 Dose: 62.5 mg Documented by: Ropinirole HCl (Requip) 1.5 mg PO BID [facility] Last Admin: 03/29/20 09:43 Dose: 1.5 mg Documented by: Ropinirole HCl 0.5 mg/ (Ropinirole HCl 1 mg) 1.5 mg PO BID [facility] Stop: 04/04/20 10:00 Last Admin: 04/04/20 08:00 Dose: 1.5 mg Documented by:
[2020-04-19] MEDS: Insulin Glargine,Human Rec. Analog 100 Units/ML 3 ML Pen SUBCUT SCH (21:29)
[2020-04-20] MEDS: Nystatin Topical Powder 15 GM Bottle TOP SCH (06:14)
[2020-04-20] MEDS: Diclofenac Sodium 1% Gel 100 GM Tube TOP SCH (06:14)
[2020-04-20] MEDS: Albuterol/Ipratropium 4 GM Inhalation Spray INH SCH (07:06)
[2020-04-20] MEDS: Mometasone Furoate HFA 200 mcg/Puff 13 GM Inhaler INH SCH (07:06)
[2020-04-20 07:23] VITALS: PULSE 60
[2020-04-20] MEDS: Pantoprazole 40 MG Tab.CR PO SCH (07:29)
[2020-04-20] MEDS: Carvedilol 3.125 MG Tab PO SCH (07:30)
[2020-04-20] MEDS: Bumetanide 1 MG Tab PO SCH (07:30)
[2020-04-20] MEDS: Insulin Lispro 100 Unit/ML 3 ML KwikPen SUBCUT SCH (07:31)
[2020-04-20] MEDS: Gabapentin 300 MG Cap PO SCH (09:09)
[2020-04-20] MEDS: Fluticasone Propionate Nasal Spray 16 GM Bottle NAS SCH (09:09)
[2020-04-20] MEDS: Spironolactone 25 MG Tab PO SCH (09:09)
[2020-04-20] MEDS: ROPINIROLE PO SCH ×2 (09:09)
[2020-04-20] MEDS: Dexamethasone 2 MG Tab PO SCH (09:10)
[2020-04-20] MEDS: Magnesium Oxide 400 MG Tab PO SCH (09:10)
[2020-04-20] MEDS: Apixaban 2.5 MG Tab PO SCH (09:10)
[2020-04-20] MEDS: Losartan 50 MG Tab PO SCH (09:10)
[2020-04-20 09:13] VITALS: BP 156/46
[2020-04-21] MEDS ORDERED: Dexamethasone 2 MG Tab PO SCH (09:00)
== END 2020-04-20 10:45 | disposition home health service (06) | DRG 177 ==
LOC: JP.ED 23:47 → JP.MS 03-29 02:08
PROVIDERS: ADMIT Hospitalist; ATTEND Hospitalist
PROC: XW033E5 Introduction of Remdesivir Anti-infective into Peripheral Vein, Percutaneous Approach, New Technology Group 5 (ICD-10-PCS; principal; 2020-03-28)
PROC: XW13325 Transfusion of Convalescent Plasma (Nonautologous) into Peripheral Vein, Percutaneous Approach, New Technology Group 5 (ICD-10-PCS; 2020-03-28)
DX: U07.1 COVID-19 (principal); N28.9 Disorder of kidney and ureter, unspecified; J12.82 Pneumonia due to coronavirus disease 2019; J96.21 Acute and chronic respiratory failure with hypoxia; J96.22 Acute and chronic respiratory failure with hypercapnia; N17.9 Acute kidney failure, unspecified; J44.1 Chronic obstructive pulmonary disease with (acute) exacerbation; J44.0 Chronic obstructive pulmonary disease with (acute) lower respiratory infection; Z66 Do not resuscitate; H40.9 Unspecified glaucoma; H54.7 Unspecified visual loss; I10 Essential (primary) hypertension; H04.123 Dry eye syndrome of bilateral lacrimal glands; T38.0X5A Adverse effect of glucocorticoids and synthetic analogues, initial encounter; J44.9 Chronic obstructive pulmonary disease, unspecified; I25.10 Atherosclerotic heart disease of native coronary artery without angina pectoris; E78.00 Pure hypercholesterolemia, unspecified; M06.9 Rheumatoid arthritis, unspecified; K52.9 Noninfective gastroenteritis and colitis, unspecified; I27.20 Pulmonary hypertension, unspecified; E11.21 Type 2 diabetes mellitus with diabetic nephropathy; R32 Unspecified urinary incontinence; M19.90 Unspecified osteoarthritis, unspecified site; G89.29 Other chronic pain; M54.9 Dorsalgia, unspecified; M81.0 Age-related osteoporosis without current pathological fracture; E66.9 Obesity, unspecified; M32.9 Systemic lupus erythematosus, unspecified; I87.8 Other specified disorders of veins; Z98.890 Other specified postprocedural states; Z79.01 Long term (current) use of anticoagulants; E11.65 Type 2 diabetes mellitus with hyperglycemia; Z79.4 Long term (current) use of insulin; Z79.899 Other long term (current) drug therapy; Z88.8 Allergy status to other drugs, medicaments and biological substances; Z79.52 Long term (current) use of systemic steroids; R79.1 Abnormal coagulation profile; Z86.718 Personal history of other venous thrombosis and embolism; Z86.711 Personal history of pulmonary embolism
CPT/HCPCS: 36415; 71045 ×2; 80053; 81001; 83880; 85025; 85379; 86140; 96374; 99285 ×2; A9270; J1100; 36430; 36600; 71046; 71046-26; 80048; 80076; 82248; 82803; 82962; 84145; 85027; 86900; 86901; 94640; 94667; 94668; 94762; 96375; 97110-GP; 97116-GP; 97162-GP; 97530-GP; 99223; 99231; 99232; 99239; J1650; J1815; J1815-GY; J1940; J2060; J2930; J3490; J7050; J8540; P9017

== ENCOUNTER 2020-04-28 13:39 | Inpatient (IN) | payer MEDICARE ==
[2020-04-28] MEDS ORDERED: Bumetanide 2.5 MG/10 ML MDV IVPUSH ONE (14:12)
[2020-04-28] MEDS ORDERED: Sodium Chloride 0.9% 10 ML Syringe FLUSH PRN ×2 (14:12)
[2020-04-28] MEDS ORDERED: Nitroglycerin 0.4 MG Tab.SL SL ONE (14:14)
--- NOTE | 2020-04-28 14:22 | EDM.PDOC ---
ED HPI GENERAL MEDICAL PROBLEM - General Chief Complaint: Syncope Stated Complaint: FALL VIA [place]TH Time Seen by Provider: 04/28/20 14:04 Source of Information: Reports: Patient, EMS, Old Records, RN Notes Reviewed History Limitations: Reports: Respiratory Distress - History of Present Illness INITIAL COMMENTS - FREE TEXT/NARRATIVE: 75-year-old female presents emergency department today via EMS services for syncopal event and severe hypoxia. She has known history of COPD with CHF recently was hospitalized for extended period time with COVID-19 pneumonia. I also discussed case with her primary care physician at that time they want to do a [facility] facility however she declined was to be at home taking care of herself however does admit that she has not been taking her Bumex as it causes her to have frequent urination. Her days particular event she was found in the hallway gasping for air feeling very weak neighbor found her she then had a syncopal event and was gently guided to the floor. EMS services were called by the time they arrived O2 saturation was 70% she was placed on a nonrebreather 10 L transported the emergency department for further evaluation. By the time I evaluated her nursing staff had assessed she is now on nasal cannula 5 L maintaining her saturation normally at home she uses 4 L. She speaks in 1 and 2 word sentences difficult to obtain history and review of systems. I am suspicious she has not been wearing her oxygen at home - Related Data Allergies Allergy/AdvReac Type Severity Reaction Status Date / Time hydrochlorothiazide Allergy Other Verified 04/28/20 14:30 [From Dyazide] loperamide [From Imodium A-D] Allergy Other Verified 04/28/20 14:30 oxybutynin Allergy Other Verified 04/28/20 14:30 [id number] Reductase Allergy Other Verified 04/28/20 14:30 Inhibitor triamterene [From Dyazide] Allergy Other Verified 04/28/20 14:30 budesonide [From Symbicort] AdvReac Nausea and Verified 04/28/20 14:30 Vomiting formoterol fumarate AdvReac Nausea and Verified 04/28/20 14:30 [From Symbicort] Vomiting pregabalin [From Lyrica] AdvReac Headache Verified 04/28/20 14:30 tizanidine AdvReac Nausea Verified 04/28/20 14:30 Home Meds: Home Meds Hydroxychloroquine Sulfate 200 mg PO DAILY 05/09/13 [History] cycloSPORINE [Restasis] 1 drop EYEBOTH BID PRN 05/09/13 [History] Albuterol [Proventil Neb Soln] 3 ml INH Q6H PRN 09/22/15 [History] Albuterol [Ventolin HFA] 2 puff INH Q6H PRN 09/22/15 [History] Magnesium Oxide 400 mg PO TID 05/17/16 [History] Diclofenac Sodium [Voltaren] 4 gm TOP QID 09/26/18 [History] Gabapentin [Neurontin] 300 - 600 mg PO TID 09/26/18 [History] Triamcinolone Acetonide [Kenalog 0.1% Crm] 1 applic TOP TID PRN 09/26/18 [History] Ferrous Sulfate 325 mg PO TIDAC 12/24/18 [History] rOPINIRole [Requip] 1.5 tab PO BID 12/24/18 [History] Spironolactone [Aldactone] 25 mg PO DAILY 02/13/19 [History] Calcium Carbonate/Vitamin D3 [Caltrate 600+D 1500 MG-400 Units] 1 tab PO BID #60 tablet 02/16/19 [Rx] Losartan [Cozaar] 50 mg PO DAILY #30 tablet 03/30/19 [Rx] Acetaminophen/HYDROcodone [[place] 325-5 MG] 1 tab PO Q6H PRN 06/06/19 [History] Cholecalciferol (Vitamin D3) [Vitamin D3] 1,000 unit PO BID 06/06/19 [History] Cyclobenzaprine [Flexeril] 10 mg PO TID PRN 06/06/19 [History] Fluticasone Propionate [Flonase] 2 spray IH DAILY 06/06/19 [History] Pantoprazole [ProTONIX] 40 mg PO DAILY 06/06/19 [History] carvediloL [Coreg] 3.125 mg PO BID 06/06/19 [History] Bumetanide [Bumex] 2 mg PO BID #60 tab 06/08/19 [Rx] Apixaban [Eliquis] 2.5 mg PO BID #28 tablet 04/19/20 [Rx] Insulin Glarg,Human.Rec.Analog [Lantus Solostar] 15 units SUBCUT BEDTIME 04/28/20 [History] Past Medical History HEENT History: Reports: Glaucoma, Impaired Vision Other HEENT History: Otitis externa of right ear, bilateral dry eyes Cardiovascular History: Reports: CAD, Heart Failure, Heart Murmur, High Cholesterol, Hypertension, SOB on Exertion Other Cardiovascular History: RBBB,ventricular diastolic dysfunction Respiratory History: Reports: Asthma, COPD, Other (See Below) Other Respiratory History: pulmonary hypertension. Uses O2 at night. Gastrointestinal History: Reports: Chronic Diarrhea Genitourinary History: Reports: Diabetic Nephropathy, Urinary Incontinence [employer]LECT[employer] SPECIALIST History: Reports: Musculoskeletal History: Reports: Arthritis, Back Pain, Chronic, Fracture, Osteoporosis Other Musculoskeletal History: fx ankle Endocrine/Metabolic History: Reports: Diabetes, Type II, Obesity/BMI 30+, Osteoporosis Other Endocrine/Metabolic History: lupus Hematologic History: Reports: Anticoagulation Therapy Other Hematologic History: hx of is no longer on Immunologic History: Reports: SLE Other Immunologic History: lupus anticoagulant positive Dermatologic History: Reports: Cellulitis, Venous Stasis Dermatitis - Infectious Disease History Infectious Disease History: Reports: Chicken Pox - Past Surgical History Head Surgeries/Procedures: Reports: None HEENT Surgical History: Reports: None Cardiovascular Surgical History: Reports: None Other Cardiovascular Surgeries/Procedures: angiogram December 03 Respiratory Surgical History: Reports: None GI Surgical History: Reports: None Female Surgical History: Reports: Breast Biopsy Endocrine Surgical History: Reports: None Neurological Surgical History: Reports: None Musculoskeletal Surgical History: Reports: Other (See Below) Other Musculoskeletal Surgeries/Procedures:: left ankle repair Oncologic Surgical History: Reports: Biopsy of Breast Dermatological Surgical History: Reports: Skin Biopsy Social & Family History - Family History Family Medical History: No Pertinent Family History - Tobacco Use Tobacco Use Status *Q: Former Tobacco User Used Tobacco, but Quit: Yes Month/Year Tobacco Last Used: 15 years - Caffeine Use Caffeine Use: Reports: None Other Caffeine Use: 3 cups coffee daily, 1 can pop dailty - Recreational Drug Use Recreational Drug Use: No - Living Situation & Occupation Living situation: Reports: Single, Alone (lives alone in her home in [place], [place]., 2 children; son Palmer,who visits on weekends, Daughter two years ago of overdose. 3 grandchildren.) ED ROS GENERAL - Review of Systems Review Of Systems: Unable To Obtain Reason Not Obtained: Respiratory distress ED EXAM, GENERAL - Physical Exam Exam: See Below Exam Limited By: Respiratory Distress General Appearance: Alert, Moderate Distress Eye Exam: Bilateral Eye: Normal Inspection Head: Atraumatic, Normocephalic Neck: Normal Inspection, Supple, Non-Tender, Full Range of Motion, Other (No JVD) Respiratory/Chest: Respiratory Distress, Decreased Breath Sounds, Crackles (Bases bilaterally), Accessory Muscle Use Cardiovascular: Regular Rate, Rhythm, Systolic Murmur GI/Abdominal: Soft, Non-Tender Back Exam: Normal Inspection, Full Range of Motion. No: CVA Tenderness (R), CVA Tenderness (L) Extremities: Pedal Edema Course - Vital Signs Last Recorded V/S: Last Vital Signs Temp 98.0 F 04/28/20 13:40 Pulse 74 04/28/20 14:17 Resp 12 04/28/20 14:17 BP 161/50 H 04/28/20 14:22 Pulse Ox 93 L 04/28/20 14:17 - Orders/Labs/Meds Orders: Active Orders 24 hr Category Date Time Status EKG Documentation Completion [RC] ASDIRECTED Care 04/28/20 14:13 Active Peripheral IV Care [RC] . DIRECTED Care 04/28/20 14:13 Active Chest 1V Frontal [CR] Urgent Exams 04/28/20 14:12 Taken UA W/MICROSCOPIC [URIN] Urgent Lab 04/28/20 14:12 Ordered Sodium Chloride 0.9% [Saline Flush] Med 04/28/20 14:12 Active 10 ml FLUSH ASDIRECTED PRN Sodium Chloride 0.9% [Saline Flush] Med 04/28/20 14:12 Active 10 ml FLUSH ASDIRECTED PRN Peripheral IV Insertion Adult [OM.PC] Urgent Oth 04/28/20 14:12 Ordered EKG 12 Lead [EK] Urgent Ther 04/28/20 14:12 Ordered Medication Orders Sodium Chloride (Saline Flush) 10 ml FLUSH ASDIRECTED PRN PRN Reason: Keep Vein Open Last Admin: 04/28/20 14:28 Dose: 10 ml Documented by: PREILOR Sodium Chloride (Saline Flush) 10 ml FLUSH ASDIRECTED PRN PRN Reason: Keep Vein Open Last Admin: 04/28/20 14:29 Dose: 10 ml Documented by: PREILOR Labs: Laboratory Tests 04/28/20 04/28/20 04/28/20 Range/Units 14:12 14:12 14:14 WBC 6.6 (4.5-11.0) K/uL RBC 3.53 (3.30-5.50) M/uL Hgb 9.5 L (12.0-15.0) g/dL Hct 33.6 L (36.0-48.0) % MCV 95 (80-98) fL MCH 27 (27-31) pg MCHC 28 L (32-36) % Plt Count 167 (150-400) K/uL Neut % (Auto) 81 H (36-66) % Lymph % (Auto) 10 L (24-44) % Caroline % (Auto) 6 (2-6) % Eos % (Auto) 2 (2-4) % Baso % (Auto) 1 (0-1) % Sodium 143 (140-148) mmol/L Potassium 5.0 (3.6-5.2) mmol/L Chloride 104 (100-108) mmol/L Carbon Dioxide 38 H (21-32) mmol/L Anion Gap 6.0 (5.0-14.0) mmol/L BUN 74 H (7-18) mg/dL Creatinine 1.7 H D (0.6-1.0) mg/dL Est Cr Clr Drug Dosing TNP Estimated GFR (MDRD) 29 L (>60) Glucose 149 H (74-106) mg/dL Calcium 8.4 L (8.5-10.1) mg/dL Total Bilirubin 0.7 (0.2-1.0) mg/dL AST 30 (15-37) U/L ALT 39 (12-78) U/L Alkaline Phosphatase 134 H D (46-116) U/L Troponin I 0.231 H* (0.000-0.056) ng/mL NT-Pro-B Natriuret Pep 55057 H (5-125) pg/mL Total Protein 6.7 (6.4-8.2) g/dL Albumin 2.1 L (3.4-5.0) g/dL Globulin 4.6 H (2.3-3.5) g/dL Albumin/Globulin Ratio 0.5 L (1.2-2.2) Meds: Medications Generic Name Dose Route Start Last Admin Trade Name Freq PRN Reason Stop Dose Admin Sodium Chloride 10 ml 04/28/20 14:12 04/28/20 14:28 Saline Flush FLUSH 10 ml ASDIRECTED PRN Administration Keep Vein Open Sodium Chloride 10 ml 04/28/20 14:12 04/28/20 14:29 Saline Flush FLUSH 10 ml ASDIRECTED PRN Administration Keep Vein Open Discontinued Medications Generic Name Dose Route Start Last Admin Trade Name Freq PRN Reason Stop Dose Admin Bumetanide 1 mg 04/28/20 14:12 04/28/20 14:23 Bumex IVPUSH 04/28/20 14:13 1 mg ONETIME ONE Administration Nitroglycerin 0.4 mg 04/28/20 14:14 04/28/20 14:22 Nitrostat SL 04/28/20 14:15 0.4 mg ONETIME ONE Administration Departure - Departure Time of Disposition: 15:21 Disposition: Admitted As Inpatient 68 Condition: Fair Clinical Impression: Congestive heart failure Qualifiers: Heart failure type: diastolic Heart failure chronicity: acute on chronic Qualified Code(s): I50.33 - Acute on chronic diastolic (congestive) heart failure - Discharge Information Instructions: Heart Failure Exacerbation Referrals: PCP,None [Primary Care Provider] - Forms: ED Department Discharge Sepsis Event Note (ED) - Evaluation Sepsis Screening Result: No Definite Risk - Focused Exam Vital Signs: Vital Signs Temp Pulse Pulse Resp BP BP BP 04/28/20 14:22 161/50 H 04/28/20 14:17 74 12 161/50 H 04/28/20 14:15 76 20 161/50 H 04/28/20 13:40 98.0 F 78 78 27 H 197/64 H Pulse Ox 04/28/20 14:22 04/28/20 14:17 93 L 04/28/20 14:15 93 L 04/28/20 13:40 93 L - My Orders Last 24 Hours: My Active Orders 04/28/20 14:12 Chest 1V Frontal [CR] Urgent UA W/MICROSCOPIC [URIN] Urgent Sodium Chloride 0.9% [Saline Flush] 10 ml FLUSH ASDIRECTED PRN Sodium Chloride 0.9% [Saline Flush] 10 ml FLUSH ASDIRECTED PRN Peripheral IV Insertion Adult [OM.PC] Urgent EKG 12 Lead [EK] Urgent 04/28/20 14:13 EKG Documentation Completion [RC] ASDIRECTED Peripheral IV Care [RC] . DIRECTED - Assessment/Plan Last 24 Hours: My Active Orders 04/28/20 14:12 Chest 1V Frontal [CR] Urgent UA W/MICROSCOPIC [URIN] Urgent Sodium Chloride 0.9% [Saline Flush] 10 ml FLUSH ASDIRECTED PRN Sodium Chloride 0.9% [Saline Flush] 10 ml FLUSH ASDIRECTED PRN Peripheral IV Insertion Adult [OM.PC] Urgent EKG 12 Lead [EK] Urgent 04/28/20 14:13 EKG Documentation Completion [RC] ASDIRECTED Peripheral IV Care [RC] . DIRECTED Plan: Assessment Acuity = acute Site and laterality = exacerbation of congestive heart failure complicated patient with known history of COPD and recent COVID-19 pneumonia Etiology = suspicious for underlying medical compliance Manifestations = dyspnea with respiratory failure Location of injury = Home Lab values = hemoglobin low at 9.5 consistent normochromic anemia creatinine elevated 1.7 consistent chronic renal failure stage G4 troponin elevated 0.231 prior related to leak type phenomenon BNP 34 791 consistent with fluid overload type pattern albumin low at 2.1 consistent with hypoalbuminemia chest x-ray shows post Covid symptoms with cardiomegaly consistent with fluid overload type pattern, EKG demonstrates a sinus rhythm there is no axis deviation there is T wave inversions 3 and aVF V1 there is no ST elevations or depressions there is a right bundle branch block Plan Call discussed case with hospitalist on-call at 1520 he kindly agreed to come and evaluate the patient emergency department for admission discharge planning is also present also discussed with her primary care the need for [facility] home placement. This note was dictated using [employer] voice recognition software please call with any questions on syntax or grammar.
--- NOTE | 2020-04-28 15:20 | CR ---
CHEST: Portable 04/28/2020 at 2:50 PM CLINICAL HISTORY:CHF COMPARISON:04/10/2020 FINDINGS: Poor inspiratory level exaggerates lung markings. Diffuse bilateral pulmonary infiltrates persist. There is a increase in density in both upper lobes. IMPRESSION: Slight increase in bilateral pulmonary infiltrates particularly in the upper lobes
--- NOTE | 2020-04-28 15:53 | PCM.HP.2 ---
H&P History of Present Illness - General Date of Service: 04/28/20 Admit Problem/Dx: Admission Diagnosis/Problem Admission Diagnosis/Problem CHF, Congestive heart failure Source of Information: Patient, Provider History Limitations: Reports: No Limitations - History of Present Illness Initial Comments - Free Text/Narative: CC: I fell down in the hooper HPI: Radha presents to the emergency room today by ambulance after falling in the hallway on her way to a doctor's appointment. When the paramedics arrived they noted that her oxygen saturations were around 70% and she was a little confused. She did have oxygen tubing on but had not turned on the oxygen at her take. Her oxygen improved after they put supplemental oxygen on. She was discharged from the hospital just over 1 week ago after a long hospital stay for COVID-19 pneumonia with acute on chronic respiratory failure. She reports that things have been going fairly well since her hospital discharge. She thought her strength was getting better each day. She did not feel any more short of breath than she did when she left the hospital. She has not had any chest pain. Her appetite is reported as being good. She has noticed that her legs have been more swollen over the past few days. She told one person that she has not been taking her diuretic because she has to pee too frequently and she told the emergency room provider that she has been taking it. She told me she has been taking her diuretics. Her legs do not hurt. She does report that there has been weeping from both lower legs which have chronic ulcers on them. She has not had any fevers or chills. She has been weaning down her insulin and was down to 9 units last night. Blood sugars have been running low in the morning but higher in the afternoon. Work-up in the emergency room revealed a mild increase in her creatinine from baseline as well as an elevated troponin at 0.2 and an elevated BNP. Chest x-ray suggestive of congestive heart failure as well as her examination. She received a dose of bumetanide in the emergency room. She is going to be admitted for management of her diastolic heart failure. - Related Data Allergies/Adverse Reactions: Allergies Allergy/AdvReac Type Severity Reaction Status Date / Time hydrochlorothiazide Allergy Other Verified 04/28/20 14:30 [From Dyazide] loperamide [From Imodium A-D] Allergy Other Verified 04/28/20 14:30 oxybutynin Allergy Other Verified 04/28/20 14:30 [id number]-[id number] Reductase Allergy Other Verified 04/28/20 14:30 Inhibitor triamterene [From Dyazide] Allergy Other Verified 04/28/20 14:30 budesonide [From Symbicort] AdvReac Nausea and Verified 04/28/20 14:30 Vomiting formoterol fumarate AdvReac Nausea and Verified 04/28/20 14:30 [From Symbicort] Vomiting pregabalin [From Lyrica] AdvReac Headache Verified 04/28/20 14:30 tizanidine AdvReac Nausea Verified 04/28/20 14:30 Home Medications: Home Meds Hydroxychloroquine Sulfate 200 mg PO DAILY 05/09/13 [History] cycloSPORINE [Restasis] 1 drop EYEBOTH BID PRN 05/09/13 [History] Albuterol [Proventil Neb Soln] 3 ml INH Q6H PRN 09/22/15 [History] Albuterol [Ventolin HFA] 2 puff INH Q6H PRN 09/22/15 [History] Magnesium Oxide 400 mg PO TID 05/17/16 [History] Diclofenac Sodium [Voltaren] 4 gm TOP QID 09/26/18 [History] Gabapentin [Neurontin] 300 - 600 mg PO TID 09/26/18 [History] Triamcinolone Acetonide [Kenalog 0.1% Crm] 1 applic TOP TID PRN 09/26/18 [History] Ferrous Sulfate 325 mg PO TIDAC 12/24/18 [History] rOPINIRole [Requip] 1.5 tab PO BID 12/24/18 [History] Spironolactone [Aldactone] 25 mg PO DAILY 02/13/19 [History] Calcium Carbonate/Vitamin D3 [Caltrate 600+D 1500 MG-400 Units] 1 tab PO BID #60 tablet 02/16/19 [Rx] Losartan [Cozaar] 50 mg PO DAILY #30 tablet 03/30/19 [Rx] Acetaminophen/HYDROcodone [[place] 325-5 MG] 1 tab PO Q6H PRN 06/06/19 [History] Cholecalciferol (Vitamin D3) [Vitamin D3] 1,000 unit PO BID 06/06/19 [History] Cyclobenzaprine [Flexeril] 10 mg PO TID PRN 06/06/19 [History] Fluticasone Propionate [Flonase] 2 spray IH DAILY 06/06/19 [History] Pantoprazole [ProTONIX] 40 mg PO DAILY 06/06/19 [History] carvediloL [Coreg] 3.125 mg PO BID 06/06/19 [History] Bumetanide [Bumex] 2 mg PO BID #60 tab 06/08/19 [Rx] Apixaban [Eliquis] 2.5 mg PO BID #28 tablet 04/19/20 [Rx] Insulin Glarg,Human.Rec.Analog [Lantus Solostar] 15 units SUBCUT BEDTIME 04/28/20 [History] Past Medical History HEENT History: Reports: Glaucoma, Impaired Vision Other HEENT History: Otitis externa of right ear, bilateral dry eyes Cardiovascular History: Reports: CAD, Heart Failure, Heart Murmur, High Choles terol, Hypertension, SOB on Exertion Other Cardiovascular History: RBBB,ventricular diastolic dysfunction Respiratory History: Reports: Asthma, COPD, Other (See Below) Other Respiratory History: pulmonary hypertension. Uses O2 at night. Gastrointestinal History: Reports: Chronic Diarrhea Genitourinary History: Reports: Diabetic Nephropathy, Urinary Incontinence HOME HEALTH PHYSICAL THERAPIST History: Reports: Musculoskeletal History: Reports: Arthritis, Back Pain, Chronic, Fracture, Osteoporosis Other Musculoskeletal History: fx ankle Endocrine/Metabolic History: Reports: Diabetes, Type II, Obesity/BMI 30+, Osteoporosis Other Endocrine/Metabolic History: lupus Hematologic History: Reports: Anticoagulation Therapy Other Hematologic History: hx of is no longer on Immunologic History: Reports: SLE Other Immunologic History: lupus anticoagulant positive Dermatologic History: Reports: Cellulitis, Venous Stasis Dermatitis - Infectious Disease History Infectious Disease History: Reports: Chicken Pox - Past Surgical History Head Surgeries/Procedures: Reports: None HEENT Surgical History: Reports: None Cardiovascular Surgical History: Reports: None Other Cardiovascular Surgeries/Procedures: angiogram December 03 Respiratory Surgical History: Reports: None GI Surgical History: Reports: None Female Surgical History: Reports: Breast Biopsy Endocrine Surgical History: Reports: None Neurological Surgical History: Reports: None Musculoskeletal Surgical History: Reports: Other (See Below) Other Musculoskeletal Surgeries/Procedures:: left ankle repair Oncologic Surgical History: Reports: Biopsy of Breast Dermatological Surgical History: Reports: Skin Biopsy Social & Family History - Family History Family Medical History: No Pertinent Family History - Tobacco Use Tobacco Use Status *Q: Former Tobacco User Used Tobacco, but Quit: Yes Month/Year Tobacco Last Used: 15 years - Caffeine Use Caffeine Use: Reports: None Other Caffeine Use: 3 cups coffee daily, 1 can pop dailty - Alcohol Use Alcohol Use History: No - Recreational Drug Use Recreational Drug Use: No - Living Situation & Occupation Living situation: Reports: Single, Alone (lives alone in her home in [place], [place]., 2 children; son Palmer,who visits on weekends, Daughter two years ago of overdose. 3 grandchildren.) H&P Review of Systems - Review of Systems: Review Of Systems: See Below Free Text/Narrative: A complete 12 point review of systems was obtained. Pertinent positives and negatives are noted in the history of present illness. All other systems were reviewed and were negative except as noted. Exam - Exam Exam: See Below - Vital Signs Vital Signs: Last Vital Signs Temp 36.7 C 04/28/20 13:40 Pulse 74 04/28/20 14:17 Resp 12 04/28/20 14:17 BP 161/50 H 04/28/20 14:22 Pulse Ox 93 L 04/28/20 14:17 Weight: 77.111 kg - Exam Quality Assessment: Supplemental Oxygen General: Alert, Oriented, Cooperative, Mild Distress, Other (tired) HEENT: Conjunctiva Clear, Mucosa Moist & [place]. No: Scleral Icterus Neck: Supple, JVD. No: Lymphadenopathy Lungs: Normal Respiratory Effort, Crackles (mild to moderate diffuse ) Cardiovascular: Regular Rate, Regular Rhythm, Systolic Murmur, Gallop/S3 GI/Abdominal Exam: Normal Bowel Sounds, Soft, Non-Tender, No Distention Back Exam: Normal Inspection. No: Full Range of Motion Extremities: Pedal Edema (pitting edema to midthigh bilaterally ), Other (both lower legs wrapped with KONG from toes to knee). No: Increased Warmth Skin: Warm, Dry Neuro Extensive - Mental Status: Alert, Oriented x3, Nl Response to Commands Neuro Extensive - Motor, Sensory, Reflexes: No: Dysarthria, Abnormal Motor, Tremor Psychiatric: Alert, Normal Affect - Patient Data Lab Results Last 24 hrs: Laboratory Results - last 24 hr 04/28/20 04/28/20 04/28/20 Range/Units 14:12 14:12 14:14 WBC 6.6 (4.5-11.0) K/uL RBC 3.53 (3.30-5.50) M/uL Hgb 9.5 L (12.0-15.0) g/dL Hct 33.6 L (36.0-48.0) % MCV 95 (80-98) fL MCH 27 (27-31) pg MCHC 28 L (32-36) % Plt Count 167 (150-400) K/uL Neut % (Auto) 81 H (36-66) % Lymph % (Auto) 10 L (24-44) % [place] % (Auto) 6 (2-6) % Eos % (Auto) 2 (2-4) % Baso % (Auto) 1 (0-1) % Sodium 143 (140-148) mmol/L Potassium 5.0 (3.6-5.2) mmol/L Chloride 104 (100-108) mmol/L Carbon Dioxide 38 H (21-32) mmol/L Anion Gap 6.0 (5.0-14.0) mmol/L BUN 74 H (7-18) mg/dL Creatinine 1.7 H D (0.6-1.0) mg/dL Est Cr Clr Drug Dosing TNP Estimated GFR (MDRD) 29 L (>60) Glucose 149 H (74-106) mg/dL Calcium 8.4 L (8.5-10.1) mg/dL Total Bilirubin 0.7 (0.2-1.0) mg/dL AST 30 (15-37) U/L ALT 39 (12-78) U/L Alkaline Phosphatase 134 H D (46-116) U/L Troponin I 0.231 H* (0.000-0.056) ng/mL NT-Pro-B Natriuret Pep 63059 H (5-125) pg/mL Total Protein 6.7 (6.4-8.2) g/dL Albumin 2.1 L (3.4-5.0) g/dL Globulin 4.6 H (2.3-3.5) g/dL Albumin/Globulin Ratio 0.5 L (1.2-2.2) Result Diagrams: 04/28/20 14:12 04/28/20 14:12 Imaging Impressions Last 24 hrs: CXR-images personally reviewed-there are patchy peripheral opacities in both lungs. there is some cephalization. There may be a small right effusion. Heart size is normal. No obvious mass. #1 Interpretation EKG Date: 04/28/20 Rhythm: NSR Rate (Beats/Min): [address] [place]: Normal P-Wave: Present QRS: RBBB ST-T: Normal QT: Normal Comparison: No Change EKG Interpretation Comments: I did personally review this EKG image Sepsis Event Note - Evaluation Sepsis Screening Result: No Definite Risk - Focused Exam Vital Signs: Vital Signs Temp Pulse Pulse Resp BP BP BP 04/28/20 14:22 161/50 H 04/28/20 14:17 74 12 161/50 H 04/28/20 14:15 76 20 161/50 H 04/28/20 13:40 36.7 C 78 78 27 H 197/64 H Pulse Ox 04/28/20 14:22 04/28/20 14:17 93 L 04/28/20 14:15 93 L 04/28/20 13:40 93 L *Q Meaningful Use (ADM) - VTE Risk Assess *Q Each Risk Factor Represents 1 Point: Swollen Legs, Current, Obesity ( BMI > 25 kg/m2), Congestive heart failure (CHF), Abnormal Pulmonary Function (COPD) Total Score 1 Point Risk Factors: 4 Each Risk Factor Represents 2 Points: Age 60 - 74 Years Total Score 2 Point Risk Factors: 2 Each Risk Factor Represents 3 Points: History of DVT/PE Total Score 3 Point Risk Factors: 3 Each Risk Factor Represents 5 Points: None Total Score 5 Point Risk Factors: 0 Venous Thromboembolism Risk Factor Score *Q: 9 - Problem List (1) Congestive heart failure SNOMED Code(s): 91320219 ICD Code: I50.9 - HEART FAILURE, UNSPECIFIED Status: Acute Current Visit: Yes Qualifiers: Heart failure type: diastolic Heart failure chronicity: acute on chronic Qualified Code(s): I50.33 - Acute on chronic diastolic (congestive) heart failure (2) COPD (chronic obstructive pulmonary disease) SNOMED Code(s): 84886671 ICD Code: J44.9 - CHRONIC OBSTRUCTIVE PULMONARY DISEASE, UNSPECIFIED Status: Chronic Priority: Low Current Visit: No Qualifiers: COPD type: unspecified COPD Qualified Code(s): J44.9 - Chronic obstructive pulmonary disease, unspecified (3) 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 SNOMED Code(s): 452181716 ICD Code: I27.22 - PULMONARY HYPERTENSION DUE TO LEFT HEART DISEASE Status: Chronic Current Visit: No (4) Diabetes mellitus, type 2 SNOMED Code(s): 71266592 ICD Code: E11.9 - TYPE 2 DIABETES MELLITUS WITHOUT COMPLICATIONS Status: Chronic Priority: Low Current Visit: No Qualifiers: 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 Diabetes mellitus complication status: with other specified complication Qualified Code(s): E11.69 - Type 2 diabetes mellitus with other specified complication (5) Rheumatoid arthritis SNOMED Code(s): 45477508 ICD Code: M06.9 - RHEUMATOID ARTHRITIS, UNSPECIFIED Status: Chronic Current Visit: No Qualifiers: Rheumatoid arthritis location: unspecified site Rheumatoid factor presence: unspecified presence Qualified Code(s): M06.9 - Rheumatoid arthritis, unspecified (6) CKD (chronic kidney disease), stage III SNOMED Code(s): 815540153 ICD Code: N18.30 - CHRONIC KIDNEY DISEASE, STAGE 3 UNSPECIFIED Status: Chronic Current Visit: Yes Qualifiers: Chronic kidney disease stage 3 subtype: stage 3a (GFR 45-59) Qualified Code(s): N18.31 - Chronic kidney disease, stage 3a Problem List Initiated/Reviewed/Updated: Yes Orders Last 24hrs: Active Orders 24 hr Category Date Time Status Patient Status Manage Transfer [TRANSFER] Routine ADT 04/28/20 15:38 Ordered EKG Documentation Completion [RC] ASDIRECTED Care 04/28/20 14:13 Active Peripheral IV Care [RC] . DIRECTED Care 04/28/20 14:13 Active UA W/MICROSCOPIC [URIN] Urgent Lab 04/28/20 14:12 Ordered Sodium Chloride 0.9% [Saline Flush] Med 04/28/20 14:12 Active 10 ml FLUSH ASDIRECTED PRN Sodium Chloride 0.9% [Saline Flush] Med 04/28/20 14:12 Active 10 ml FLUSH ASDIRECTED PRN Peripheral IV Insertion Adult [OM.PC] Urgent Oth 04/28/20 14:12 Ordered Resuscitation Status Routine Resus Stat 04/28/20 15:41 Ordered EKG 12 Lead [EK] Urgent Ther 04/28/20 14:12 Ordered Medication Orders Sodium Chloride (Saline Flush) 10 ml FLUSH ASDIRECTED PRN PRN Reason: Keep Vein Open Last Admin: 04/28/20 14:28 Dose: 10 ml Documented by: PREILOR Sodium Chloride (Saline Flush) 10 ml FLUSH ASDIRECTED PRN PRN Reason: Keep Vein Open Last Admin: 04/28/20 14:29 Dose: 10 ml Documented by: PREILOR Assessment/Plan Comment:: ASSESSMENT AND PLAN - Acute on chronic heart failure with preserved ejection fraction-recently on steroids which could lead to fluid retention, unclear if she has been taking her diuretics or not. Increased edema recently. No recent chest pains. Suspect side effect of steroids and probably noncompliance with medications. -Strict intake and output monitoring -Repeat dose of bumetanide early in the morning -Continue beta-beryl and ARB -Echocardiogram when available Severe oxygen dependent COPD-complicated by pulmonary hypertension. Recent COPD exacerbation due to Covid but seems to be recovering other than some persistent weakness and slightly more supplemental oxygen than previous. Hopefully this will improve with diuresis. No wheezing at this time. -Scheduled and as needed nebulizers Elevated troponin level-mild elevation which is probably demand ischemia with significant hypoxia noted by paramedics. EKG does not show ischemic changes. -Repeat level tonight and in the morning Type 2 diabetes mellitus-recent complication from steroids necessitating presumably temporary use of subcutaneous insulin. She has been de-escalating her insulin therapy at home. She has had some low blood sugars in the morning. -Hold long-acting insulin tonight -Low-dose sliding scale insulin -4 times daily Accu-Cheks Stage III chronic kidney disease-creatinine near baseline. Recent Covid infection-still a little weak but otherwise progressing well. She is done the steroids but is still on apixaban for a while longer with her history of DVT/PE. Rheumatoid arthritis-stable. -Continue hydroxychloroquine Maintenance issues - - DVT prophylaxis -apixaban - GI prophylaxis -PPI - Nutrition -consistent carbohydrates - [place] catheter -not indicated CODE STATUS -DNR/DNI Admission justification -this patient will be admitted for inpatient services and is medically appropriate meeting medical necessity for inpatient admission as outlined in my documentation. I reasonably expect the patient will require inpatient services that span a period time over 2 midnights. I reasonably expect this patient to be discharged or transferred within 96 hours [facility]. Disposition -I would anticipate discharge home with home care versus possibly subacute rehab Primary care physician -Dr. Es Mojica M.D. - Mortality Measure Prognosis:: Good
[2020-04-28] MEDS ORDERED: Hypromellose 0.3% Ophth Soln 15 ML Bottle EYEBOTH PRN (16:00)
[2020-04-28] MEDS ORDERED: Magnesium Hydroxide 400 MG/5 ML Susp 30 ML Cup PO PRN (16:30)
[2020-04-28] MEDS ORDERED: LORazepam 2 MG/ML SDV IVPUSH PRN (16:30)
[2020-04-28] MEDS ORDERED: Acetaminophen 325 MG Tab PO PRN (16:30)
[2020-04-28] MEDS ORDERED: Ondansetron 4 MG/2 ML SDV IV PRN (16:30)
[2020-04-28] MEDS ORDERED: Ondansetron 4 MG Tab.DIS PO PRN (16:30)
[2020-04-28] MEDS: Insulin Lispro 100 Unit/ML 3 ML KwikPen SUBCUT SCH ×2 (18:43→21:12)
[2020-04-28] MEDS: Diclofenac Sodium 1% Gel 100 GM Tube TOP SCH ×2 (18:44→21:15)
[2020-04-28] MEDS: Albuterol/Ipratropium 3.0-0.5 MG/3 ML Neb Soln NEB SCH ×2 (19:52→20:53)
[2020-04-28] MEDS: Melatonin 3 MG Tab PO SCH (20:52)
[2020-04-28] MEDS: rOPINIRole 0.5 MG Tab PO SCH (20:52)
[2020-04-28] MEDS: Apixaban 2.5 MG Tab PO SCH (20:53)
[2020-04-28] MEDS: Gabapentin 300 MG Cap PO SCH (20:54)
[2020-04-28] MEDS ORDERED: Gabapentin 300 MG Cap PO SCH (21:00)
[2020-04-28] MEDS ORDERED: Carvedilol 3.125 MG Tab PO SCH (21:00)
[2020-04-29] MEDS: Diclofenac Sodium 1% Gel 100 GM Tube TOP SCH ×4 (06:29→21:19)
[2020-04-29] MEDS ORDERED: Bumetanide 2.5 MG/10 ML MDV IVPUSH ONE (07:00)
[2020-04-29] MEDS: Albuterol/Ipratropium 3.0-0.5 MG/3 ML Neb Soln NEB SCH ×4 (07:15→21:19)
[2020-04-29] MEDS: Insulin Lispro 100 Unit/ML 3 ML KwikPen SUBCUT SCH ×4 (07:54→21:18)
[2020-04-29] MEDS: Pantoprazole 40 MG Tab.CR PO SCH (07:54)
[2020-04-29] MEDS: Gabapentin 300 MG Cap PO SCH ×3 (07:55→21:18)
[2020-04-29] MEDS ORDERED: Losartan 50 MG Tab PO SCH (09:00)
[2020-04-29] MEDS ORDERED: Spironolactone 25 MG Tab PO SCH (09:00)
--- NOTE | 2020-04-29 09:22 | PCM.PN ---
- General Info Date of Service: 04/29/20 Subjective Update: There were no acute events overnight. She feels better today with improved strength and energy. Appetite is good. Oxygenation has been stable. She did not have a very impressive diuresis but her lower extremity edema is quite a bit better today. No complaints of abdominal pain. Her creatinine is slightly higher today than it was yesterday. Blood sugars have been well controlled with only 1 small dose of supplemental insulin. Functional Status: Reports: Pain Controlled, Tolerating Diet - Review of Systems General: Reports: Weakness Pulmonary: Reports: Shortness of Breath Cardiovascular: Reports: Edema - Patient Data Vitals - Most Recent: Last Vital Signs Temp 35.3 C L 04/29/20 07:42 Pulse 57 L 04/29/20 07:42 Resp 16 04/29/20 07:42 BP 120/47 L 04/29/20 07:42 Pulse Ox 95 04/29/20 07:42 Weight - Most Recent: 78.018 kg I&O - Last 24 Hours: Intake & Output 04/28/20 04/29/20 04/29/20 22:59 06:59 14:59 Intake Total 300 200 Output Total 375 250 Balance -75 -250 200 Lab Results Last 24 Hours: Laboratory Results - last 24 hr 04/28/20 04/28/20 04/28/20 Range/Units 14:12 14:12 14:14 WBC 6.6 (4.5-11.0) K/uL RBC 3.53 (3.30-5.50) M/uL Hgb 9.5 L (12.0-15.0) g/dL Hct 33.6 L (36.0-48.0) % MCV 95 (80-98) fL MCH 27 (27-31) pg MCHC 28 L (32-36) % Plt Count 167 (150-400) K/uL Neut % (Auto) 81 H (36-66) % Lymph % (Auto) 10 L (24-44) % Reynolds % (Auto) 6 (2-6) % Eos % (Auto) 2 (2-4) % Baso % (Auto) 1 (0-1) % Sodium 143 (140-148) mmol/L Potassium 5.0 (3.6-5.2) mmol/L Chloride 104 (100-108) mmol/L Carbon Dioxide 38 H (21-32) mmol/L Anion Gap 6.0 (5.0-14.0) mmol/L BUN 74 H (7-18) mg/dL Creatinine 1.7 H D (0.6-1.0) mg/dL Est Cr Clr Drug Dosing TNP Estimated GFR (MDRD) 29 L (>60) Glucose 149 H (74-106) mg/dL POC Glucose (74-106) MG/DL Calcium 8.4 L (8.5-10.1) mg/dL Total Bilirubin 0.7 (0.2-1.0) mg/dL AST 30 (15-37) U/L ALT 39 (12-78) U/L Alkaline Phosphatase 134 H D (46-116) U/L Troponin I 0.231 H* (0.000-0.056) ng/mL NT-Pro-B Natriuret Pep 74416 H (5-125) pg/mL Total Protein 6.7 (6.4-8.2) g/dL Albumin 2.1 L (3.4-5.0) g/dL Globulin 4.6 H (2.3-3.5) g/dL Albumin/Globulin Ratio 0.5 L (1.2-2.2) Urine Color (YELLOW) Urine Appearance (CLEAR) Urine pH (5.0-8.0) Ur Specific [place] (1.008-1.030) Urine Protein (NEGATIVE) mg/dL Urine Glucose (UA) (NEGATIVE) mg/dL Urine Ketones (NEGATIVE) mg/dL Urine Occult Blood (NEGATIVE) Urine Nitrite (NEGATIVE) Urine Bilirubin (NEGATIVE) Urine Urobilinogen (0.2-1.0) EU/dL Ur Leukocyte Esterase (NEGATIVE) Urine RBC (0-5) Urine WBC (0-5) Ur Epithelial Cells Amorphous Sediment Urine Bacteria Urine Mucus 04/28/20 04/28/20 04/28/20 Range/Units 16:50 16:51 19:52 WBC (4.5-11.0) K/uL RBC (3.30-5.50) M/uL Hgb (12.0-15.0) g/dL Hct (36.0-48.0) % MCV (80-98) fL MCH (27-31) pg MCHC (32-36) % Plt Count (150-400) K/uL Neut % (Auto) (36-66) % Lymph % (Auto) (24-44) % Reynolds % (Auto) (2-6) % Eos % (Auto) (2-4) % Baso % (Auto) (0-1) % Sodium (140-148) mmol/L Potassium (3.6-5.2) mmol/L Chloride (100-108) mmol/L Carbon Dioxide (21-32) mmol/L Anion Gap (5.0-14.0) mmol/L BUN (7-18) mg/dL Creatinine (0.6-1.0) mg/dL Est Cr Clr Drug Dosing Estimated GFR (MDRD) (>60) Glucose (74-106) mg/dL POC Glucose 135 H (74-106) MG/DL Calcium (8.5-10.1) mg/dL Total Bilirubin (0.2-1.0) mg/dL AST (15-37) U/L ALT (12-78) U/L Alkaline Phosphatase (46-116) U/L Troponin I 0.265 H* (0.000-0.056) ng/mL NT-Pro-B Natriuret Pep (5-125) pg/mL Total Protein (6.4-8.2) g/dL Albumin (3.4-5.0) g/dL Globulin (2.3-3.5) g/dL Albumin/Globulin Ratio (1.2-2.2) Urine Color Yellow (YELLOW) Urine Appearance Clear (CLEAR) Urine pH 6.5 (5.0-8.0) Ur Specific [place] 1.020 (1.008-1.030) Urine Protein 30 H (NEGATIVE) mg/dL Urine Glucose (UA) Negative (NEGATIVE) mg/dL Urine Ketones Negative (NEGATIVE) mg/dL Urine Occult Blood Negative (NEGATIVE) Urine Nitrite Negative (NEGATIVE) Urine Bilirubin Negative (NEGATIVE) Urine Urobilinogen 0.2 (0.2-1.0) EU/dL Ur Leukocyte Esterase Small H (NEGATIVE) Urine RBC 0-5 (0-5) Urine WBC 5-10 H (0-5) Ur Epithelial Cells Few Amorphous Sediment Not seen Urine Bacteria Few Urine Mucus Not seen 04/28/20 04/29/20 04/29/20 Range/Units 20:56 04:24 04:24 WBC 4.4 L (4.5-11.0) K/uL RBC 3.02 L (3.30-5.50) M/uL Hgb 8.3 L (12.0-15.0) g/dL Hct 29.1 L (36.0-48.0) % MCV 96 (80-98) fL MCH 28 (27-31) pg MCHC 29 L (32-36) % Plt Count 147 L (150-400) K/uL Neut % (Auto) (36-66) % Lymph % (Auto) (24-44) % Reynolds % (Auto) (2-6) % Eos % (Auto) (2-4) % Baso % (Auto) (0-1) % Sodium 143 (140-148) mmol/L Potassium 4.7 (3.6-5.2) mmol/L Chloride 105 (100-108) mmol/L Carbon Dioxide 35 H (21-32) mmol/L Anion Gap 7.7 (5.0-14.0) mmol/L BUN 81 H* (7-18) mg/dL Creatinine 1.8 H (0.6-1.0) mg/dL Est Cr Clr Drug Dosing 22.02 Estimated GFR (MDRD) 28 L (>60) Glucose 137 H (74-106) mg/dL POC Glucose 269 H (74-106) MG/DL Calcium 7.9 L (8.5-10.1) mg/dL Total Bilirubin (0.2-1.0) mg/dL AST (15-37) U/L ALT (12-78) U/L Alkaline Phosphatase (46-116) U/L Troponin I 0.223 H* (0.000-0.056) ng/mL NT-Pro-B Natriuret Pep (5-125) pg/mL Total Protein (6.4-8.2) g/dL Albumin (3.4-5.0) g/dL Globulin (2.3-3.5) g/dL Albumin/Globulin Ratio (1.2-2.2) Urine Color (YELLOW) Urine Appearance (CLEAR) Urine pH (5.0-8.0) Ur Specific [place] (1.008-1.030) Urine Protein (NEGATIVE) mg/dL Urine Glucose (UA) (NEGATIVE) mg/dL Urine Ketones (NEGATIVE) mg/dL Urine Occult Blood (NEGATIVE) Urine Nitrite (NEGATIVE) Urine Bilirubin (NEGATIVE) Urine Urobilinogen (0.2-1.0) EU/dL Ur Leukocyte Esterase (NEGATIVE) Urine RBC (0-5) Urine WBC (0-5) Ur Epithelial Cells Amorphous Sediment Urine Bacteria Urine Mucus 04/29/20 Range/Units 07:30 WBC (4.5-11.0) K/uL RBC (3.30-5.50) M/uL Hgb (12.0-15.0) g/dL Hct (36.0-48.0) % MCV (80-98) fL MCH (27-31) pg MCHC (32-36) % Plt Count (150-400) K/uL Neut % (Auto) (36-66) % Lymph % (Auto) (24-44) % Reynolds % (Auto) (2-6) % Eos % (Auto) (2-4) % Baso % (Auto) (0-1) % Sodium (140-148) mmol/L Potassium (3.6-5.2) mmol/L Chloride (100-108) mmol/L Carbon Dioxide (21-32) mmol/L Anion Gap (5.0-14.0) mmol/L BUN (7-18) mg/dL Creatinine (0.6-1.0) mg/dL Est Cr Clr Drug Dosing Estimated GFR (MDRD) (>60) Glucose (74-106) mg/dL POC Glucose 134 H (74-106) MG/DL Calcium (8.5-10.1) mg/dL Total Bilirubin (0.2-1.0) mg/dL AST (15-37) U/L ALT (12-78) U/L Alkaline Phosphatase (46-116) U/L Troponin I (0.000-0.056) ng/mL NT-Pro-B Natriuret Pep (5-125) pg/mL Total Protein (6.4-8.2) g/dL Albumin (3.4-5.0) g/dL Globulin (2.3-3.5) g/dL Albumin/Globulin Ratio (1.2-2.2) Urine Color (YELLOW) Urine Appearance (CLEAR) Urine pH (5.0-8.0) Ur Specific [place] (1.008-1.030) Urine Protein (NEGATIVE) mg/dL Urine Glucose (UA) (NEGATIVE) mg/dL Urine Ketones (NEGATIVE) mg/dL Urine Occult Blood (NEGATIVE) Urine Nitrite (NEGATIVE) Urine Bilirubin (NEGATIVE) Urine Urobilinogen (0.2-1.0) EU/dL Ur Leukocyte Esterase (NEGATIVE) Urine RBC (0-5) Urine WBC (0-5) Ur Epithelial Cells Amorphous Sediment Urine Bacteria Urine Mucus Med Orders - Current: Current Medications Acetaminophen (Tylenol) 650 mg PO Q4H PRN PRN Reason: Pain (Mild 1-3)/fever Hydrocodone Bitart/Acetaminophen ([place] 325-5 Mg) 1 tab PO Q4H PRN PRN Reason: Pain (moderate 4-6) Albuterol (Proventil Neb Soln) 2.5 mg NEB Q4H PRN PRN Reason: Shortness Of Breath/wheezing Albuterol/Ipratropium (Duoneb 3.0-0.5 Mg/3 Ml) 3 ml NEB QIDRT [facility] Last Admin: 04/29/20 07:15 Dose: 3 ml Documented by: Apixaban (Eliquis) 2.5 mg PO BID [facility] Last Admin: 04/28/20 20:53 Dose: 2.5 mg Documented by: Artificial Tears (Genteal Mild To Moderate Ophth Soln) 0 ml EYEBOTH QID PRN PRN Reason: DRY EYES Diclofenac Sodium (Voltaren 1% Gel) 0 gm TOP QID [facility] Last Admin: 04/29/20 06:29 Dose: Not Given Documented by: Gabapentin (Neurontin) 300 mg PO BID@0800,1200 [facility] Last Admin: 04/29/20 07:55 Dose: 300 mg Documented by: Gabapentin (Neurontin) 600 mg PO BEDTIME [facility] Last Admin: 04/28/20 20:54 Dose: 600 mg Documented by: Hydroxychloroquine Sulfate (Plaquenil) 200 mg PO DAILY [facility] Sodium Chloride (Normal Saline) 1,000 mls @ 125 mls/hr IV ASDIRECTED [facility] Stop: 04/29/20 17:31 Insulin Human Lispro (Humalog) 0 unit SUBCUT QIDACANDBED [facility]; Protocol Last Admin: 04/29/20 07:54 Dose: Not Given Documented by: Lorazepam (Ativan) 0.5 mg IVPUSH Q4H PRN PRN Reason: Nausea/Vomiting Magnesium Hydroxide (Milk Of Magnesia) 30 ml PO Q12H PRN PRN Reason: Constipation Melatonin (Melatonin) 9 mg PO BEDTIME [facility] Last Admin: 04/28/20 20:52 Dose: 9 mg Documented by: Nystatin (Nystop) 0 gm TOP TID [facility] Ondansetron HCl (Zofran) 4 mg IV Q6H PRN PRN Reason: Nausea/Vomiting Ondansetron HCl (Zofran Odt) 4 mg PO Q6H PRN PRN Reason: Nausea able to take PO Pantoprazole Sodium (Protonix) 40 mg PO DAILY@0730 [facility] Last Admin: 04/29/20 07:54 Dose: 40 mg Documented by: Ropinirole HCl (Requip) 1.5 mg PO BID [facility] Last Admin: 04/28/20 20:52 Dose: 1.5 mg Documented by: Senna/Docusate Sodium (Senna Plus) 1 tab PO BID PRN PRN Reason: Constipation Sodium Chloride (Saline Flush) 10 ml FLUSH ASDIRECTED PRN PRN Reason: Keep Vein Open Last Admin: 04/28/20 14:28 Dose: 10 ml Documented by: Discontinued Medications Bumetanide (Bumex) 1 mg IVPUSH ONETIME ONE Stop: 04/28/20 14:13 Last Admin: 04/28/20 14:23 Dose: 1 mg Documented by: Bumetanide (Bumex) 2 mg IVPUSH ONETIME ONE Stop: 04/29/20 07:01 Last Admin: 04/29/20 06:32 Dose: 2 mg Documented by: Carvedilol (Coreg) 3.125 mg PO BID [facility] Last Admin: 04/28/20 20:53 Dose: 3.125 mg Documented by: Losartan Potassium (Cozaar) 50 mg PO DAILY [facility] Nitroglycerin (Nitrostat) 0.4 mg SL ONETIME ONE Stop: 04/28/20 14:15 Last Admin: 04/28/20 14:22 Dose: 0.4 mg Documented by: Sodium Chloride (Saline Flush) 10 ml FLUSH ASDIRECTED PRN PRN Reason: Keep Vein Open Last Admin: 04/28/20 14:29 Dose: 10 ml Documented by: Spironolactone (Aldactone) 25 mg PO DAILY JERRI - Exam Quality Assessment: Supplemental Oxygen General: Alert, Oriented, Cooperative, No Acute Distress Lungs: Normal Respiratory Effort, Crackles (mild diffuse) Cardiovascular: Regular Rate, Regular Rhythm, Murmurs GI/Abdominal Exam: Soft, No Distention Extremities: No Pedal Edema, Other (both lower legs wrapped with KONG). No: Increased Warmth Skin: Warm, Dry Psy/Mental Status: Alert, Normal Affect Sepsis Event Note - Evaluation Sepsis Screening Result: No Definite Risk - Focused Exam Vital Signs: Vital Signs Temp Pulse Resp BP BP Pulse Ox 04/29/20 07:42 35.3 C L 57 L 16 120/47 L 95 04/29/20 02:21 36.6 C 57 L 22 H 105/35 L 90 L 04/28/20 22:38 36.5 C 65 18 111/50 L 90 L - Problem List & Annotations (1) Congestive heart failure SNOMED Code(s): 30538542 Code(s): I50.9 - HEART FAILURE, UNSPECIFIED Status: Acute Current Visit: Yes Qualifiers: Heart failure type: diastolic Heart failure chronicity: acute on chronic Qualified Code(s): I50.33 - Acute on chronic diastolic (congestive) heart fa ilure (2) COPD (chronic obstructive pulmonary disease) SNOMED Code(s): 61153768 Code(s): J44.9 - CHRONIC OBSTRUCTIVE PULMONARY DISEASE, UNSPECIFIED Status: Chronic Priority: Low Current Visit: No Qualifiers: COPD type: unspecified COPD Qualified Code(s): J44.9 - Chronic obstructive pulmonary disease, unspecified (3) 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 SNOMED Code(s): 763403829 Code(s): I27.22 - PULMONARY HYPERTENSION DUE TO LEFT HEART DISEASE Status: Chronic Current Visit: No (4) Diabetes mellitus, type 2 SNOMED Code(s): 34867199 Code(s): E11.9 - TYPE 2 DIABETES MELLITUS WITHOUT COMPLICATIONS Status: Chronic Priority: Low Current Visit: No Qualifiers: 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 Diabetes mellitus complication status: with other specified complication Qualified Co de(s): E11.69 - Type 2 diabetes mellitus with other specified complication (5) Rheumatoid arthritis SNOMED Code(s): 70653243 Code(s): M06.9 - RHEUMATOID ARTHRITIS, UNSPECIFIED Status: Chronic Current Visit: No Qualifiers: Rheumatoid arthritis location: unspecified site Rheumatoid factor presence: unspecified presence Qualified Code(s): M06.9 - Rheumatoid arthritis, unspecified (6) CKD (chronic kidney disease), stage III SNOMED Code(s): 501869306 Code(s): N18.30 - CHRONIC KIDNEY DISEASE, STAGE 3 UNSPECIFIED Status: Chronic Current Visit: Yes Qualifiers: Chronic kidney disease stage 3 subtype: stage 3a (GFR 45-59) Qualified Code(s): N18.31 - Chronic kidney disease, stage 3a - Problem List Review Problem List Initiated/Reviewed/Updated: Yes - My Orders Last 24 Hours: My Active Orders 04/28/20 15:41 Resuscitation Status Routine 04/28/20 16:00 Hypromellose [GenTeal Mild to Moderate Ophth Soln] 0 ml EYEBOTH QID PRN 04/28/20 16:30 Acetaminophen [TylenoL] 650 mg PO Q4H PRN Acetaminophen/HYDROcodone [[place] 325-5 MG] 1 tab PO Q4H PRN Albuterol [Proventil Neb Soln] 2.5 mg NEB Q4H PRN Albuterol/Ipratropium [DuoNeb 3.0-0.5 MG/3 ML] 3 ml NEB QIDRT Diclofenac Sodium [Voltaren 1% Gel] 0 gm TOP QID Docusate Sodium/Sennosides [Senna Plus] 1 tab PO BID PRN LORazepam [Ativan] 0.5 mg IVPUSH Q4H PRN Magnesium Hydroxide [Milk of Magnesia] 30 ml PO Q12H PRN Ondansetron [Zofran ODT] 4 mg PO Q6H PRN Ondansetron [Zofran] 4 mg IV Q6H PRN 04/28/20 16:30 Patient Status [ADT] Routine Communication Order [RC] PRN Communication Order [RC] PRN Diabetes Education [RC] Click to Edit Height and Weight [RC] 0500 Intake and Output [RC] QSHIFT Notify Provider Vital Signs [RC] ASDIRECTED Notify Provider [RC] PRN Oxygen Therapy [RC] PRN RT Aerosol Therapy [RC] ASDIRECTED Up With Assistance [RC] ASDIRECTED Vital Signs [RC] Q4H PT Evaluation and Treatment [CONS] Routine 04/28/20 Dinner Consistent Carbohydrate Diet [DIET] Insulin Lispro [HumaLOG] See Protocol SUBCUT QIDACANDBED 04/28/20 21:00 Apixaban [Eliquis] 2.5 mg PO BID Gabapentin [Neurontin] 600 mg PO BEDTIME Melatonin 9 mg PO BEDTIME rOPINIRole [Requip] 1.5 mg PO BID 04/29/20 07:30 Pantoprazole [ProTONIX] 40 mg PO DAILY@0730 04/29/20 08:00 Gabapentin [Neurontin] 300 mg PO BID@0800,1200 04/29/20 09:00 Hydroxychloroquine [Plaquenil] 200 mg PO DAILY Nystatin [Nystop] 0 gm TOP TID 04/29/20 09:20 Cardiac Monitoring Discontinue [RC] Click to Edit 04/29/20 09:30 Sodium Chloride 0.9% [Normal Saline] 1,000 ml IV ASDIRECTED 04/29/20 11:30 GLUCOSE POC LAB TO COLLECT JPM [POC] QIDACANDBED 04/29/20 16:30 GLUCOSE POC LAB TO COLLECT JPM [POC] QIDACANDBED 04/29/20 21:00 GLUCOSE POC LAB TO COLLECT JPM [POC] QIDACANDBED 04/30/20 05:00 BASIC METABOLIC PANEL,BMP [CHEM] Timed CBC W/O DIFF,HEMOGRAM [HEME] Timed (1) 04/30/20 07:00 Echo Comp wo Cont [US] Routine 04/30/20 07:30 GLUCOSE POC LAB TO COLLECT JPM [POC] QIDACANDBED 04/30/20 11:30 GLUCOSE POC LAB TO COLLECT JPM [POC] QIDACANDBED 04/30/20 16:30 GLUCOSE POC LAB TO COLLECT JPM [POC] QIDACANDBED 04/30/20 21:00 GLUCOSE POC LAB TO COLLECT JPM [POC] QIDACANDBED 05/01/20 07:30 GLUCOSE POC LAB TO COLLECT JPM [POC] QIDACANDBED 05/01/20 11:30 GLUCOSE POC LAB TO COLLECT JPM [POC] QIDACANDBED 05/01/20 16:30 GLUCOSE POC LAB TO COLLECT JPM [POC] QIDACANDBED 05/01/20 21:00 GLUCOSE POC LAB TO COLLECT JPM [POC] QIDACANDBED 05/02/20 07:30 GLUCOSE POC LAB TO COLLECT JPM [POC] QIDACANDBED 05/02/20 11:30 GLUCOSE POC LAB TO COLLECT JPM [POC] QIDACANDBED 05/02/20 16:30 GLUCOSE POC LAB TO COLLECT JPM [POC] QIDACANDBED 05/02/20 21:00 GLUCOSE POC LAB TO COLLECT JPM [POC] QIDACANDBED 05/03/20 07:30 GLUCOSE POC LAB TO COLLECT JPM [POC] QIDACANDBED 05/03/20 11:30 GLUCOSE POC LAB TO COLLECT JPM [POC] QIDACANDBED 05/03/20 16:30 GLUCOSE POC LAB TO COLLECT JPM [POC] QIDACANDBED 05/03/20 21:00 GLUCOSE POC LAB TO COLLECT JPM [POC] QIDACANDB - Plan Plan:: ASSESSMENT AND PLAN - Acute on chronic heart failure with preserved ejection fraction-not much of a response to diuresis and BUN and creatinine have both risen. Suspect that she is intravascularly deplete and may actually benefit from a little bit of fluid and holding diuretics for a day. 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 Oxygenation stable at this time. -Scheduled and as needed nebulizers Elevated troponin level-mild elevation which is probably demand ischemia with significant hypoxia noted by paramedics. EKG -. Troponin level stable. Type 2 diabetes mellitus-sugars well controlled so far. -Discontinue long-acting insulin -Low-dose sliding scale insulin -4 times daily Accu-Cheks Acute kidney injury-baseline creatinine is 1 and she is now up to 1.8 with her creatinine. Suspect intravascular volume depletion. -Fluids as above -Labs in the morning recent Covid infection-still a little weak but otherwise progressing well. She is done the steroids but is still on apixaban for a while longer with her history of DVT/PE. Rheumatoid arthritis-stable. -Continue hydroxychloroquine Maintenance issues - - DVT prophylaxis -apixaban - GI prophylaxis -PPI - Nutrition -consistent carbohydrates Disposition -I would anticipate discharge home with home care versus possibly subacute rehab. At this time patient does not have any interest in subacute rehab. Primary care physician -Dr. Es Mojica M.D.
[2020-04-29] MEDS ORDERED: Sodium Chloride 0.9% 1,000 ML IV SCH (09:30)
[2020-04-29] MEDS: Apixaban 2.5 MG Tab PO SCH ×2 (10:13→21:19)
[2020-04-29] MEDS: Hydroxychloroquine 200 MG Tab PO SCH (10:13)
[2020-04-29] MEDS: rOPINIRole 0.5 MG Tab PO SCH ×2 (10:14→21:18)
[2020-04-29] MEDS: Nystatin Topical Powder 15 GM Bottle TOP SCH ×3 (10:16→21:19)
[2020-04-29] MEDS: Acetaminophen/HYDROcodone 325-5 MG Tab PO PRN (15:46)
[2020-04-29] MEDS: Melatonin 3 MG Tab PO SCH (21:18)
[2020-04-30] MEDS: Acetaminophen/HYDROcodone 325-5 MG Tab PO PRN (00:41)
[2020-04-30] MEDS: Diclofenac Sodium 1% Gel 100 GM Tube TOP SCH ×4 (05:54→21:29)
[2020-04-30] MEDS: Albuterol/Ipratropium 3.0-0.5 MG/3 ML Neb Soln NEB SCH ×4 (07:20→21:28)
[2020-04-30] MEDS: Gabapentin 300 MG Cap PO SCH ×3 (08:18→21:28)
[2020-04-30] MEDS: rOPINIRole 0.5 MG Tab PO SCH ×2 (08:18→21:29)
[2020-04-30] MEDS: Pantoprazole 40 MG Tab.CR PO SCH (08:18)
[2020-04-30] MEDS: Apixaban 2.5 MG Tab PO SCH ×2 (08:18→21:28)
[2020-04-30] MEDS: Nystatin Topical Powder 15 GM Bottle TOP SCH ×3 (08:19→21:29)
[2020-04-30] MEDS: Insulin Lispro 100 Unit/ML 3 ML KwikPen SUBCUT SCH ×4 (08:19→21:24)
[2020-04-30] MEDS: Hydroxychloroquine 200 MG Tab PO SCH (08:19)
--- NOTE | 2020-04-30 09:44 | PCM.PN ---
- General Info Date of Service: 04/30/20 Subjective Update: There were no acute events overnight. Patient feels a little tired today and did not sleep well. She did have some pain in both ankles last night but this has improved this morning. She did not have any fevers. She feels a little short of breath but not dramatically off from baseline. She has not had any fevers. Lower extremity edema is better but she does still have some swelling around her knee as above the [place] wraps. [facility] before going home. Functional Status: Reports: Pain Controlled, Tolerating Diet - Review of Systems General: Reports: Weakness Pulmonary: Reports: Shortness of Breath - Patient Data Vitals - Most Recent: Last Vital Signs Temp 35.6 C L 04/30/20 08:08 Pulse 65 04/30/20 08:08 Resp 16 04/30/20 08:08 BP 124/41 L 04/30/20 08:08 Pulse Ox 97 04/30/20 08:08 Weight - Most Recent: 79.923 kg I&O - Last 24 Hours: Intake & Output 04/29/20 04/30/20 04/30/20 22:59 06:59 14:59 Intake Total 1000 400 500 Output Total 200 100 Balance 800 300 500 Lab Results Last 24 Hours: Laboratory Results - last 24 hr 04/29/20 04/29/20 04/29/20 Range/Units 11:30 16:30 21:00 WBC (4.5-11.0) K/uL RBC (3.30-5.50) M/uL Hgb (12.0-15.0) g/dL Hct (36.0-48.0) % MCV (80-98) fL MCH (27-31) pg MCHC (32-36) % Plt Count (150-400) K/uL Sodium (140-148) mmol/L Potassium (3.6-5.2) mmol/L Chloride (100-108) mmol/L Carbon Dioxide (21-32) mmol/L Anion Gap (5.0-14.0) mmol/L BUN (7-18) mg/dL Creatinine (0.6-1.0) mg/dL Est Cr Clr Drug Dosing mL/min Estimated GFR (MDRD) (>60) Glucose (74-106) mg/dL POC Glucose 155 H 198 H 204 H (74-106) MG/DL Calcium (8.5-10.1) mg/dL 04/30/20 04/30/20 04/30/20 Range/Units 04:52 04:52 07:30 WBC 3.3 L (4.5-11.0) K/uL RBC 3.17 L (3.30-5.50) M/uL Hgb 8.6 L (12.0-15.0) g/dL Hct 30.9 L (36.0-48.0) % MCV 98 (80-98) fL MCH 27 (27-31) pg MCHC 28 L (32-36) % Plt Count 128 L (150-400) K/uL Sodium 144 (140-148) mmol/L Potassium 4.7 (3.6-5.2) mmol/L Chloride 104 (100-108) mmol/L Carbon Dioxide 36 H (21-32) mmol/L Anion Gap 8.7 (5.0-14.0) mmol/L BUN 83 H* (7-18) mg/dL Creatinine 2.2 H (0.6-1.0) mg/dL Est Cr Clr Drug Dosing 17.86 mL/min Estimated GFR (MDRD) 22 L (>60) Glucose 134 H (74-106) mg/dL POC Glucose 171 H (74-106) MG/DL Calcium 7.6 L (8.5-10.1) mg/dL Med Orders - Current: Current Medications Acetaminophen (Tylenol) 650 mg PO Q4H PRN PRN Reason: Pain (Mild 1-3)/fever Hydrocodone Bitart/Acetaminophen ([place] 325-5 Mg) 1 tab PO Q4H PRN PRN Reason: Pain (moderate 4-6) Last Admin: 04/30/20 00:41 Dose: 1 tab Documented by: Albuterol (Proventil Neb Soln) 2.5 mg NEB Q4H PRN PRN Reason: Shortness Of Breath/wheezing Albuterol/Ipratropium (Duoneb 3.0-0.5 Mg/3 Ml) 3 ml NEB QIDRT [facility] Last Admin: 04/30/20 07:20 Dose: 3 ml Documented by: Apixaban (Eliquis) 2.5 mg PO BID [facility] Last Admin: 04/30/20 08:18 Dose: 2.5 mg Documented by: Artificial Tears (Genteal Mild To Moderate Ophth Soln) 0 ml EYEBOTH QID PRN PRN Reason: DRY EYES Diclofenac Sodium (Voltaren 1% Gel) 0 gm TOP QID [facility] Last Admin: 04/30/20 05:54 Dose: Not Given Documented by: Gabapentin (Neurontin) 300 mg PO BID@0800,1200 [facility] Last Admin: 04/30/20 08:18 Dose: 300 mg Documented by: Gabapentin (Neurontin) 600 mg PO BEDTIME [facility] Last Admin: 04/29/20 21:18 Dose: 600 mg Documented by: Hydroxychloroquine Sulfate (Plaquenil) 200 mg PO DAILY [facility] Last Admin: 04/30/20 08:19 Dose: 200 mg Documented by: Insulin Human Lispro (Humalog) 0 unit SUBCUT QIDACANDBED [facility]; Protocol Last Admin: 04/30/20 08:19 Dose: 1 unit Documented by: Lorazepam (Ativan) 0.5 mg IVPUSH Q4H PRN PRN Reason: Nausea/Vomiting Magnesium Hydroxide (Milk Of Magnesia) 30 ml PO Q12H PRN PRN Reason: Constipation Melatonin (Melatonin) 9 mg PO BEDTIME [facility] Last Admin: 04/29/20 21:18 Dose: 9 mg Documented by: Nystatin (Nystop) 0 gm TOP TID [facility] Last Admin: 04/30/20 08:19 Dose: 1 applic Documented by: Ondansetron HCl (Zofran) 4 mg IV Q6H PRN PRN Reason: Nausea/Vomiting Last Admin: 04/29/20 12:36 Dose: 4 mg Documented by: Ondansetron HCl (Zofran Odt) 4 mg PO Q6H PRN PRN Reason: Nausea able to take PO Pantoprazole Sodium (Protonix) 40 mg PO DAILY@0730 [facility] Last Admin: 04/30/20 08:18 Dose: 40 mg Documented by: Ropinirole HCl (Requip) 1.5 mg PO BID [facility] Last Admin: 04/30/20 08:18 Dose: 1.5 mg Documented by: Senna/Docusate Sodium (Senna Plus) 1 tab PO BID PRN PRN Reason: Constipation Sodium Chloride (Saline Flush) 10 ml FLUSH ASDIRECTED PRN PRN Reason: Keep Vein Open Last Admin: 04/28/20 14:28 Dose: 10 ml Documented by: Discontinued Medications Bumetanide (Bumex) 1 mg IVPUSH ONETIME ONE Stop: 04/28/20 14:13 Last Admin: 04/28/20 14:23 Dose: 1 mg Documented by: Bumetanide (Bumex) 2 mg IVPUSH ONETIME ONE Stop: 04/29/20 07:01 Last Admin: 04/29/20 06:32 Dose: 2 mg Documented by: Carvedilol (Coreg) 3.125 mg PO BID [facility] Last Admin: 04/28/20 20:53 Dose: 3.125 mg Documented by: Sodium Chloride (Normal Saline) 1,000 mls @ 125 mls/hr IV ASDIRECTED [facility] Stop: 04/29/20 17:31 Last Admin: 04/29/20 11:05 Dose: 125 mls/hr Documented by: Losartan Potassium (Cozaar) 50 mg PO DAILY [facility] Nitroglycerin (Nitrostat) 0.4 mg SL ONETIME ONE Stop: 04/28/20 14:15 Last Admin: 04/28/20 14:22 Dose: 0.4 mg Documented by: Sodium Chloride (Saline Flush) 10 ml FLUSH ASDIRECTED PRN PRN Reason: Keep Vein Open Last Admin: 04/28/20 14:29 Dose: 10 ml Documented by: Spironolactone (Aldactone) 25 mg PO DAILY [facility] Last Admin: 04/29/20 10:17 Dose: Not Given Documented by: - Exam Quality Assessment: Supplemental Oxygen General: Alert, Oriented, Cooperative, No Acute Distress Lungs: Normal Respiratory Effort, Crackles (mild lower and mid lung ) Cardiovascular: Regular Rate, Regular Rhythm GI/Abdominal Exam: Soft, No Distention Extremities: Pedal Edema (swelling above [place] wraps to mid thigh ), Other (both legs wrapped from foot to below the knee) Skin: Warm, Dry Psy/Mental Status: Alert, Normal Affect Sepsis Event Note - Evaluation Sepsis Screening Result: No Definite Risk - Focused Exam Vital Signs: Vital Signs Temp Pulse Resp BP BP Pulse Ox 04/30/20 08:08 35.6 C L 65 16 124/41 L 97 04/30/20 07:20 66 04/30/20 03:06 35.8 C L 62 18 109/61 90 L 04/29/20 22:28 35.5 C L 60 17 108/36 L 94 L - Problem List & Annotations (1) Congestive heart failure SNOMED Code(s): 71119561 Code(s): I50.9 - HEART FAILURE, UNSPECIFIED Status: Acute Current Visit: Yes Qualifiers: Heart failure type: diastolic Heart failure chronicity: acute on chronic Qualified Code(s): I50.33 - Acute on chronic diastolic (congestive) heart failure (2) COPD (chronic obstructive pulmonary disease) SNOMED Code(s): 05960859 Code(s): J44.9 - CHRONIC OBSTRUCTIVE PULMONARY DISEASE, UNSPECIFIED Status: Chronic Priority: Low Current Visit: No Qualifiers: COPD type: unspecified COPD Qualified Code(s): J44.9 - Chronic obstructive pulmonary disease, unspecified (3) 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 SNOMED Code(s): 904472957 Code(s): I27.22 - PULMONARY HYPERTENSION DUE TO LEFT HEART DISEASE Status: Chronic Current Visit: No (4) Diabetes mellitus, type 2 SNOMED Code(s): 59357259 Code(s): E11.9 - TYPE 2 DIABETES MELLITUS WITHOUT COMPLICATIONS Status: Chronic Priority: Low Current Visit: No Qualifiers: Diabetes mellitus long-term insulin use: without terminal gauger use Diabetes mellitus complication status: with other specified complication Qualified Code(s): E11.69 - Type 2 diabetes mellitus with other specified complication (5) Rheumatoid arthritis SNOMED Code(s): 35645064 Code(s): M06.9 - RHEUMATOID ARTHRITIS, UNSPECIFIED Status: Chronic Current Visit: No Qualifiers: Rheumatoid arthritis location: unspecified site Rheumatoid factor presence: unspecified presence Qualified Code(s): M06.9 - Rheumatoid arthritis, unspecified (6) CKD (chronic kidney disease), stage III SNOMED Code(s): 624299788 Code(s): N18.30 - CHRONIC KIDNEY DISEASE, STAGE 3 UNSPECIFIED Status: Chronic Current Visit: Yes Qualifiers: Chronic kidney disease stage 3 subtype: stage 3a (GFR 45-59) Qualified Code(s): N18.31 - Chronic kidney disease, stage 3a - Problem List Review Problem List Initiated/Reviewed/Updated: Yes - My Orders Last 24 Hours: My Active Orders 04/29/20 09:00 Hydroxychloroquine [Plaquenil] 200 mg PO DAILY Nystatin [Nystop] 0 gm TOP TID 04/29/20 09:20 Cardiac Monitoring Discontinue [RC] Click to Edit 04/29/20 09:22 Dressing Change [Wound Care] [RC] ASDIRECTED 04/30/20 07:00 Echo Comp wo Cont [US] Routine 04/30/20 11:30 GLUCOSE POC LAB TO COLLECT JPM [POC] QIDACANDBED 04/30/20 16:30 GLUCOSE POC LAB TO COLLECT JPM [POC] QIDACANDBED 04/30/20 21:00 GLUCOSE POC LAB TO COLLECT JPM [POC] QIDACANDBED 05/01/20 05:00 BASIC METABOLIC PANEL,BMP [CHEM] Timed CBC W/O DIFF,HEMOGRAM [HEME] Timed (1) 05/01/20 07:30 GLUCOSE POC LAB TO COLLECT JPM [POC] QIDACANDBED 05/01/20 11:30 GLUCOSE POC LAB TO COLLECT JPM [POC] QIDACANDBED 05/01/20 16:30 GLUCOSE POC LAB TO COLLECT JPM [POC] QIDACANDBED 05/01/20 21:00 GLUCOSE POC LAB TO COLLECT JPM [POC] QIDACANDBED 05/02/20 07:30 GLUCOSE POC LAB TO COLLECT JPM [POC] QIDACANDBED 05/02/20 11:30 GLUCOSE POC LAB TO COLLECT JPM [POC] QIDACANDBED 05/02/20 16:30 GLUCOSE POC LAB TO COLLECT JPM [POC] QIDACANDBED 05/02/20 21:00 GLUCOSE POC LAB TO COLLECT JPM [POC] QIDACANDBED 05/03/20 07:30 GLUCOSE POC LAB TO COLLECT JPM [POC] QIDACANDBED 05/03/20 11:30 GLUCOSE POC LAB TO COLLECT JPM [POC] QIDACANDBED 05/03/20 16:30 GLUCOSE POC LAB TO COLLECT JPM [POC] QIDACANDBED 05/03/20 21:00 GLUCOSE POC LAB TO COLLECT JPM [POC] QIDACANDBED - Plan Plan:: ASSESSMENT AND PLAN - Acute on chronic heart failure with preserved ejection fraction-edema is a little better today with compression wraps and this is going to be the most effective tool to manage her edema. Creatinine slightly higher again today and I think she would benefit from a little more fluid so she has adequate preload. Calcium channel beryl may be of benefit but blood pressure is on the lower side of normal at this time. Echocardiogram unchanged from previous and did show normal ejection fraction, diastolic dysfunction as well as significant pulmonary hypertension. 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 Oxygenation stable at this time. -Scheduled and as needed nebulizers Elevated troponin level-mild elevation which is probably demand ischemia with significant hypoxia noted by paramedics. EKG -. Type 2 diabetes mellitus-sugars well controlled so far. I anticipate discharge home without any need for medication management. -Discontinue long-acting insulin -Low-dose sliding scale insulin -4 times daily Accu-Cheks Acute kidney injury-baseline creatinine is 1 and she is now up to 2.2 with her creatinine. Suspect intravascular volume depletion. -Fluids as above -Labs in the morning Recent Covid infection-still a little weak but otherwise progressing well. She is done the steroids but is still on apixaban for a while longer with her history of DVT/PE. Rheumatoid arthritis-stable. -Continue hydroxychloroquine Chronic lower extremity venous stasis ulcers-these were present on admission. Currently being managed with pressure wrappings and dressing changes on Mondays and . Maintenance issues - - DVT prophylaxis -apixaban - GI prophylaxis -PPI - Nutrition -consistent carbohydrates Disposition -I would anticipate discharge with subacute rehab at [facility]. She may be ready for discharge tomorrow or more likely Monday Primary care physician -Dr. Es Mojica M.D.
[2020-04-30] MEDS ORDERED: Sodium Chloride 0.9% 500 ML IV ONE (10:00)
[2020-04-30] MEDS: Melatonin 3 MG Tab PO SCH (21:28)
[2020-05-01] MEDS: Acetaminophen/HYDROcodone 325-5 MG Tab PO PRN ×3 (03:40→19:52)
[2020-05-01] MEDS: Diclofenac Sodium 1% Gel 100 GM Tube TOP SCH ×5 (05:23→21:39)
[2020-05-01] MEDS ORDERED: Sodium Chloride 0.9% 500 ML IV ONE (05:49)
[2020-05-01] MEDS: Albuterol/Ipratropium 3.0-0.5 MG/3 ML Neb Soln NEB SCH ×5 (07:01→20:27)
[2020-05-01] MEDS: Insulin Lispro 100 Unit/ML 3 ML KwikPen SUBCUT SCH ×2 (08:15→12:38)
[2020-05-01] MEDS: Gabapentin 300 MG Cap PO SCH ×3 (08:21→20:27)
[2020-05-01] MEDS: Hydroxychloroquine 200 MG Tab PO SCH (08:21)
[2020-05-01] MEDS: rOPINIRole 0.5 MG Tab PO SCH ×3 (08:21→20:27)
[2020-05-01] MEDS: Pantoprazole 40 MG Tab.CR PO SCH (08:21)
[2020-05-01] MEDS: Apixaban 2.5 MG Tab PO SCH ×3 (08:21→20:27)
[2020-05-01] MEDS: Albuterol 0.083% 2.5 MG/3 ML Neb Soln NEB PRN (09:49)
[2020-05-01] MEDS: Nystatin Topical Powder 15 GM Bottle TOP SCH ×4 (10:24→20:27)
[2020-05-01] MEDS: amLODIPine 5 MG Tab PO SCH (10:41)
--- NOTE | 2020-05-01 12:24 | PCM.PN ---
- General Info Date of Service: 05/01/20 Subjective Update: There were no acute events overnight. She feels weak and fatigued today, more so than yesterday. She did not have any fevers overnight. Oxygenation has been stable. Creatinine is similar to yesterday but not improved. Blood sugars have been well controlled. Still some edema of both posterior thighs but overall edema is improved. Blood pressures have been rising over the past 24 hours. Functional Status: Reports: Pain Controlled, Tolerating Diet - Review of Systems General: Reports: Weakness - Patient Data Vitals - Most Recent: Last Vital Signs Temp 34.9 C L 05/01/20 10:18 Pulse 49 L 05/01/20 10:46 Resp 20 05/01/20 10:18 BP 114/76 05/01/20 10:41 Pulse Ox 99 05/01/20 10:18 Weight - Most Recent: 79.923 kg I&O - Last 24 Hours: Intake & Output 04/30/20 05/01/20 05/01/20 22:59 06:59 14:59 Intake Total 800 900 Output Total 200 Balance 800 700 Lab Results Last 24 Hours: Laboratory Results - last 24 hr 04/30/20 04/30/20 05/01/20 Range/Units 16:40 20:53 05:20 WBC 4.2 L (4.5-11.0) K/uL RBC 3.14 L (3.30-5.50) M/uL Hgb 8.4 L (12.0-15.0) g/dL Hct 30.2 L (36.0-48.0) % MCV 96 (80-98) fL MCH 27 (27-31) pg MCHC 28 L (32-36) % Plt Count 137 L (150-400) K/uL Sodium (140-148) mmol/L Potassium (3.6-5.2) mmol/L Chloride (100-108) mmol/L Carbon Dioxide (21-32) mmol/L Anion Gap (5.0-14.0) mmol/L BUN (7-18) mg/dL Creatinine (0.6-1.0) mg/dL Est Cr Clr Drug Dosing mL/min Estimated GFR (MDRD) (>60) Glucose (74-106) mg/dL POC Glucose 207 H 149 H (74-106) MG/DL Calcium (8.5-10.1) mg/dL 05/01/20 05/01/20 05/01/20 Range/Units 05:20 07:30 11:23 WBC (4.5-11.0) K/uL RBC (3.30-5.50) M/uL Hgb (12.0-15.0) g/dL Hct (36.0-48.0) % MCV (80-98) fL MCH (27-31) pg MCHC (32-36) % Plt Count (150-400) K/uL Sodium 141 (140-148) mmol/L Potassium 5.3 H (3.6-5.2) mmol/L Chloride 104 (100-108) mmol/L Carbon Dioxide 32 (21-32) mmol/L Anion Gap 10.3 (5.0-14.0) mmol/L BUN 84 H* (7-18) mg/dL Creatinine 2.3 H (0.6-1.0) mg/dL Est Cr Clr Drug Dosing 17.08 mL/min Estimated GFR (MDRD) 21 L (>60) Glucose 114 H (74-106) mg/dL POC Glucose 134 H 239 H (74-106) MG/DL Calcium 7.6 L (8.5-10.1) mg/dL Med Orders - Current: Current Medications Acetaminophen (Tylenol) 650 mg PO Q4H PRN PRN Reason: Pain (Mild 1-3)/fever Hydrocodone Bitart/Acetaminophen ([place] 325-5 Mg) 1 tab PO Q4H PRN PRN Reason: Pain (moderate 4-6) Last Admin: 05/01/20 08:21 Dose: 1 tab Documented by: Albuterol (Proventil Neb Soln) 2.5 mg NEB Q4H PRN PRN Reason: Shortness Of Breath/wheezing Last Admin: 05/01/20 09:49 Dose: 2.5 mg Documented by: Albuterol/Ipratropium (Duoneb 3.0-0.5 Mg/3 Ml) 3 ml NEB QIDRT [facility] Last Admin: 05/01/20 10:46 Dose: 3 ml Documented by: Amlodipine Besylate (Norvasc) 5 mg PO DAILY [facility] Last Admin: 05/01/20 10:41 Dose: 5 mg Documented by: Apixaban (Eliquis) 2.5 mg PO BID [facility] Last Admin: 05/01/20 08:21 Dose: 2.5 mg Documented by: Artificial Tears (Genteal Mild To Moderate Ophth Soln) 0 ml EYEBOTH QID PRN PRN Reason: DRY EYES Diclofenac Sodium (Voltaren 1% Gel) 0 gm TOP QID [facility] Last Admin: 05/01/20 10:24 Dose: Not Given Documented by: Gabapentin (Neurontin) 300 mg PO BID [facility] Hydroxychloroquine Sulfate (Plaquenil) 200 mg PO DAILY [facility] Last Admin: 05/01/20 08:21 Dose: 200 mg Documented by: Lorazepam (Ativan) 0.5 mg IVPUSH Q4H PRN PRN Reason: Nausea/Vomiting Magnesium Hydroxide (Milk Of Magnesia) 30 ml PO Q12H PRN PRN Reason: Constipation Melatonin (Melatonin) 9 mg PO BEDTIME [facility] Last Admin: 04/30/20 21:28 Dose: 9 mg Documented by: Nystatin (Nystop) 0 gm TOP TID [facility] Last Admin: 05/01/20 10:24 Dose: Not Given Documented by: Ondansetron HCl (Zofran) 4 mg IV Q6H PRN PRN Reason: Nausea/Vomiting Last Admin: 04/29/20 12:36 Dose: 4 mg Documented by: Ondansetron HCl (Zofran Odt) 4 mg PO Q6H PRN PRN Reason: Nausea able to take PO Pantoprazole Sodium (Protonix) 40 mg PO DAILY@0730 [facility] Last Admin: 05/01/20 08:21 Dose: 40 mg Documented by: Ropinirole HCl (Requip) 1.5 mg PO BID [facility] Last Admin: 05/01/20 08:21 Dose: 1.5 mg Documented by: Senna/Docusate Sodium (Senna Plus) 1 tab PO BID PRN PRN Reason: Constipation Sodium Chloride (Saline Flush) 10 ml FLUSH ASDIRECTED PRN PRN Reason: Keep Vein Open Last Admin: 04/28/20 14:28 Dose: 10 ml Documented by: Discontinued Medications Bumetanide (Bumex) 1 mg IVPUSH ONETIME ONE Stop: 04/28/20 14:13 Last Admin: 04/28/20 14:23 Dose: 1 mg Documented by: Bumetanide (Bumex) 2 mg IVPUSH ONETIME ONE Stop: 04/29/20 07:01 Last Admin: 04/29/20 06:32 Dose: 2 mg Documented by: Carvedilol (Coreg) 3.125 mg PO BID [facility] Last Admin: 04/28/20 20:53 Dose: 3.125 mg Documented by: Gabapentin (Neurontin) 300 mg PO BID@0800,1200 [facility] Last Admin: 05/01/20 08:21 Dose: 300 mg Documented by: Gabapentin (Neurontin) 600 mg PO BEDTIME [facility] Last Admin: 04/30/20 21:28 Dose: 600 mg Documented by: Sodium Chloride (Normal Saline) 1,000 mls @ 125 mls/hr IV ASDIRECTED [facility] Stop: 04/29/20 17:31 Last Admin: 04/29/20 11:05 Dose: 125 mls/hr Documented by: Sodium Chloride (Normal Saline) 500 mls @ 125 mls/hr IV ASDIRECTED ONE Stop: 04/30/20 13:59 Last Admin: 04/30/20 10:31 Dose: 125 mls/hr Documented by: Sodium Chloride (Normal Saline) 500 mls @ 125 mls/hr IV ONETIME ONE Stop: 05/01/20 09:48 Last Admin: 05/01/20 06:06 Dose: 125 mls/hr Documented by: Insulin Human Lispro (Humalog) 0 unit SUBCUT QIDACANDBED [facility]; Protocol Last Admin: 05/01/20 08:15 Dose: Not Given Documented by: Losartan Potassium (Cozaar) 50 mg PO DAILY [facility] Nitroglycerin (Nitrostat) 0.4 mg SL ONETIME ONE Stop: 04/28/20 14:15 Last Admin: 04/28/20 14:22 Dose: 0.4 mg Documented by: Sodium Chloride (Saline Flush) 10 ml FLUSH ASDIRECTED PRN PRN Reason: Keep Vein Open Last Admin: 04/28/20 14:29 Dose: 10 ml Documented by: Spironolactone (Aldactone) 25 mg PO DAILY [facility] Last Admin: 04/29/20 10:17 Dose: Not Given Documented by: - Exam Quality Assessment: Supplemental Oxygen General: Alert, Oriented, Cooperative, No Acute Distress Lungs: Normal Respiratory Effort. No: Wheezing Cardiovascular: Regular Rate, Regular Rhythm GI/Abdominal Exam: Soft, No Distention Extremities: No Pedal Edema, Other (swelling of both posterior thighs ) Skin: Warm, Dry Psy/Mental Status: Alert, Normal Affect Sepsis Event Note - Evaluation Sepsis Screening Result: No Definite Risk - Focused Exam Vital Signs: Vital Signs Temp Pulse Resp BP BP Pulse Ox Pulse Ox 05/01/20 10:46 49 L 05/01/20 10:41 114/76 05/01/20 10:18 34.9 C L 49 L 20 114/36 L 99 05/01/20 09:00 95 05/01/20 07:01 49 L 05/01/20 07:00 35.2 C L 51 L 20 112/67 95 05/01/20 02:42 35.9 C L 66 20 156/36 H 86 L - Problem List & Annotations (1) Congestive heart failure SNOMED Code(s): 23576683 Code(s): I50.9 - HEART FAILURE, UNSPECIFIED Status: Acute Current Visit: Yes Qualifiers: Heart failure type: diastolic Heart failure chronicity: acute on chronic Qualified Code(s): I50.33 - Acute on chronic diastolic (congestive) heart failure (2) COPD (chronic obstructive pulmonary disease) SNOMED Code(s): 45435379 Code(s): J44.9 - CHRONIC OBSTRUCTIVE PULMONARY DISEASE, UNSPECIFIED Status: Chronic Priority: Low Current Visit: No Qualifiers: COPD type: unspecified COPD Qualified Code(s): J44.9 - Chronic obstructive pulmonary disease, unspecified (3) 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 SNOMED Code(s): 250348936 Code(s): I27.22 - PULMONARY HYPERTENSION DUE TO LEFT HEART DISEASE Status: Chronic Current Visit: No (4) Diabetes mellitus, type 2 SNOMED Code(s): 82606495 Code(s): E11.9 - TYPE 2 DIABETES MELLITUS WITHOUT COMPLICATIONS Status: Chronic Priority: Low Current Visit: No Qualifiers: Diabetes mellitus bed bug exterminator insulin use: without long-term use Diabetes mellitus complication status: with other specified complication Qualified Code(s): E11.69 - Type 2 diabetes mellitus with other specified complication (5) Rheumatoid arthritis SNOMED Code(s): 08127667 Code(s): M06.9 - RHEUMATOID ARTHRITIS, UNSPECIFIED Status: Chronic Current Visit: No Qualifiers: Rheumatoid arthritis location: unspecified site Rheumatoid factor presence: unspecified presence Qualified Code(s): M06.9 - Rheumatoid arthritis, unspecified (6) CKD (chronic kidney disease), stage III SNOMED Code(s): 229556635 Code(s): N18.30 - CHRONIC KIDNEY DISEASE, STAGE 3 UNSPECIFIED Status: Chronic Current Visit: Yes Qualifiers: Chronic kidney disease stage 3 subtype: stage 3a (GFR 45-59) Qualified Code(s): N18.31 - Chronic kidney disease, stage 3a - Problem List Review Problem List Initiated/Reviewed/Updated: Yes - My Orders Last 24 Hours: My Active Orders 05/01/20 09:30 amLODIPine [Norvasc] 5 mg PO DAILY 05/01/20 16:30 GLUCOSE POC LAB TO COLLECT JPM [POC] QIDACANDBED 05/01/20 21:00 GLUCOSE POC LAB TO COLLECT JPM [POC] QIDACANDBED Gabapentin [Neurontin] 300 mg PO BID 05/02/20 05:00 BASIC METABOLIC PANEL,BMP [CHEM] Timed - Plan Plan:: ASSESSMENT AND PLAN - Acute on chronic heart failure with preserved ejection fraction-edema continues to improve. Blood pressure is high enough we can start a calcium channel beryl now. Urine output has been adequate but creatinine remains compromised compared to baseline. -Strict intake and output monitoring -Start amlodipine 5 mg daily -Hold diuretics, reassess daily -Physical therapy Severe oxygen dependent COPD-complicated by pulmonary hypertension. Oxygenation stable at this time. -Scheduled and as needed nebulizers Elevated troponin level-mild elevation which is probably demand ischemia with significant hypoxia noted by paramedics. EKG -. Type 2 diabetes mellitus-sugars well controlled so far. I anticipate discharge home without any need for medication management. -Discontinue insulin and Accu-Cheks Acute kidney injury-baseline creatinine is 1 and she is now up to 2.3 with her creatinine. Suspect intravascular volume depletion. -Hold diuretics -Labs in the morning Recent Covid infection-still a little weak but otherwise progressing well. She is done the steroids but is still on apixaban for a while longer with her histo ry of DVT/PE. Rheumatoid arthritis-stable. -Continue hydroxychloroquine Chronic lower extremity venous stasis ulcers-these were present on admission. Currently being managed with pressure wrappings and dressing changes on Mondays and . Maintenance issues - - DVT prophylaxis -apixaban - GI prophylaxis -PPI - Nutrition -consistent carbohydrates Disposition -I would anticipate discharge with subacute rehab at [facility]. She needs additional medication management before she is ready for discharge and this will likely be early next week. Primary care physician -Dr. Es Mojica M.D.
[2020-05-01] MEDS: Melatonin 3 MG Tab PO SCH ×2 (19:53→20:27)
[2020-05-02] MEDS: Acetaminophen/HYDROcodone 325-5 MG Tab PO PRN ×2 (00:42→20:18)
[2020-05-02] MEDS: Albuterol 0.083% 2.5 MG/3 ML Neb Soln NEB PRN (04:54)
[2020-05-02] MEDS ORDERED: Sodium Polystyrene Sulfonate 15 GM/60 ML Susp 60 ML Bot PO ONE (05:54)
[2020-05-02] MEDS: Diclofenac Sodium 1% Gel 100 GM Tube TOP SCH ×5 (06:56→22:34)
[2020-05-02] MEDS: Albuterol/Ipratropium 3.0-0.5 MG/3 ML Neb Soln NEB SCH ×4 (07:34→20:19)
[2020-05-02] MEDS: amLODIPine 5 MG Tab PO SCH (08:01)
[2020-05-02] MEDS: Hydroxychloroquine 200 MG Tab PO SCH (08:01)
[2020-05-02] MEDS: Apixaban 2.5 MG Tab PO SCH ×2 (08:01→20:15)
[2020-05-02] MEDS: Nystatin Topical Powder 15 GM Bottle TOP SCH ×3 (08:02→20:14)
[2020-05-02] MEDS: rOPINIRole 0.5 MG Tab PO SCH ×2 (08:02→20:15)
--- NOTE | 2020-05-02 10:30 | CRLCR ---
INDICATION: Worsening hypoxia TECHNIQUE: Chest 1 view. COMPARISON: 04/28/2020 FINDINGS: The cardiomediastinal silhouette is stable. No pneumothorax. Opacities in the right upper lobe are not significantly changed. Increased patchy consolidation in the right lung base. Opacity in the lateral left mid to upper lung zone is not significantly changed. Slightly increased patchy opacities in the left lung base. Likely small amount of bilateral pleural fluid. IMPRESSION: Increased opacities in the lung bases, right greater than left. Dictated by Dennis Carter MD @ 05/02/2020 10:28:23 AM Dictated by: Dennis Carter MD @ 05/02/2020 10:28:26 (Electronically Signed)
[2020-05-02] MEDS ORDERED: Bumetanide 1 MG/4 ML MDV IVPUSH ONE (10:34)
--- NOTE | 2020-05-02 10:47 | PCM.PN ---
- General Info Date of Service: 05/02/20 Subjective Update: Overnight the patient had difficulty with increased somnolence and some hypoxia. She was up to 8 L of oxygen for a while. She feels about the same as yesterday. She feels weak and tired. She does not have much of a cough. She does not feel any more short of breath today than yesterday. No chest pain. Appetite has been okay. No fevers. Creatinine is higher today at 2.6 and potassium up to 5.7. She did receive Kayexalate this morning. Chest x-ray this morning showed mostly Covid changes though there was possibly a right lower lung infiltrate. CT scan showed mostly Covid changes and small bilateral pleural effusions. Bedside echocardiogram showed normal to hyperdynamic left ventricular function and a large but functioning right ventricle. No pericardial effusion was noted. IVC was dilated to about 2 cm. Functional Status: Reports: Pain Controlled - Review of Systems General: Reports: Weakness Psychiatric: Reports: Confusion - Patient Data Vitals - Most Recent: Last Vital Signs Temp 35.8 C L 05/02/20 07:02 Pulse 64 05/02/20 10:40 Resp 18 05/02/20 07:02 BP 140/47 L 05/02/20 08:01 Pulse Ox 96 05/02/20 07:02 Weight - Most Recent: 83.461 kg I&O - Last 24 Hours: Intake & Output 05/01/20 05/02/20 05/02/20 22:59 06:59 14:59 Intake Total 100 Balance 100 Lab Results Last 24 Hours: Laboratory Results - last 24 hr 05/01/20 05/02/20 Range/Units 11:23 04:30 Sodium 140 (140-148) mmol/L Potassium 5.7 H (3.6-5.2) mmol/L Chloride 104 (100-108) mmol/L Carbon Dioxide 31 (21-32) mmol/L Anion Gap 10.7 (5.0-14.0) mmol/L BUN 90 H* (7-18) mg/dL Creatinine 2.6 H (0.6-1.0) mg/dL Est Cr Clr Drug Dosing 15.11 mL/min Estimated GFR (MDRD) 18 L (>60) Glucose 134 H (74-106) mg/dL POC Glucose 239 H (74-106) MG/DL Calcium 7.8 L (8.5-10.1) mg/dL Med Orders - Current: Current Medications Acetaminophen (Tylenol) 650 mg PO Q4H PRN PRN Reason: Pain (Mild 1-3)/fever Hydrocodone Bitart/Acetaminophen (Ore[place] 325-5 Mg) 1 tab PO Q4H PRN PRN Reason: Pain (moderate 4-6) Last Admin: 05/02/20 00:42 Dose: 1 tab Documented by: Albuterol (Proventil Neb Soln) 2.5 mg NEB Q4H PRN PRN Reason: Shortness Of Breath/wheezing Last Admin: 05/02/20 04:54 Dose: 2.5 mg Documented by: Albuterol/Ipratropium (Duoneb 3.0-0.5 Mg/3 Ml) 3 ml NEB QIDRT [facility] Last Admin: 05/02/20 10:40 Dose: 3 ml Documented by: Amlodipine Besylate (Norvasc) 5 mg PO DAILY [facility] Last Admin: 05/02/20 08:01 Dose: 5 mg Documented by: Apixaban (Eliquis) 2.5 mg PO BID [facility] Last Admin: 05/02/20 08:01 Dose: 2.5 mg Documented by: Artificial Tears (Genteal Mild To Moderate Ophth Soln) 0 ml EYEBOTH QID PRN PRN Reason: DRY EYES Diclofenac Sodium (Voltaren 1% Gel) 0 gm TOP QID [facility] Last Admin: 05/02/20 10:03 Dose: Not Given Documented by: Gabapentin (Neurontin) 300 mg PO BID [facility] Last Admin: 05/01/20 20:27 Dose: Not Given Documented by: Hydroxychloroquine Sulfate (Plaquenil) 200 mg PO DAILY [facility] Last Admin: 05/02/20 08:01 Dose: 200 mg Documented by: Lorazepam (Ativan) 0.5 mg IVPUSH Q4H PRN PRN Reason: Nausea/Vomiting Magnesium Hydroxide (Milk Of Magnesia) 30 ml PO Q12H PRN PRN Reason: Constipation Melatonin (Melatonin) 9 mg PO BEDTIME [facility] Last Admin: 05/01/20 20:27 Dose: Not Given Documented by: Nystatin (Nystop) 0 gm TOP TID [facility] Last Admin: 05/02/20 08:02 Dose: 1 applic Documented by: Ondansetron HCl (Zofran) 4 mg IV Q6H PRN PRN Reason: Nausea/Vomiting Last Admin: 04/29/20 12:36 Dose: 4 mg Documented by: Ondansetron HCl (Zofran Odt) 4 mg PO Q6H PRN PRN Reason: Nausea able to take PO Ropinirole HCl (Requip) 1.5 mg PO BID [facility] Last Admin: 05/02/20 08:02 Dose: 1.5 mg Documented by: Senna/Docusate Sodium (Senna Plus) 1 tab PO BID PRN PRN Reason: Constipation Sodium Chloride (Saline Flush) 10 ml FLUSH ASDIRECTED PRN PRN Reason: Keep Vein Open Last Admin: 04/28/20 14:28 Dose: 10 ml Documented by: Discontinued Medications Bumetanide (Bumex) 1 mg IVPUSH ONETIME ONE Stop: 04/28/20 14:13 Last Admin: 04/28/20 14:23 Dose: 1 mg Documented by: Bumetanide (Bumex) 2 mg IVPUSH ONETIME ONE Stop: 04/29/20 07:01 Last Admin: 04/29/20 06:32 Dose: 2 mg Documented by: Bumetanide (Bumex) 2 mg IVPUSH ONETIME ONE Stop: 05/02/20 10:35 Carvedilol (Coreg) 3.125 mg PO BID [facility] Last Admin: 04/28/20 20:53 Dose: 3.125 mg Documented by: Gabapentin (Neurontin) 300 mg PO BID@0800,1200 [facility] Last Admin: 05/01/20 08:21 Dose: 300 mg Documented by: Gabapentin (Neurontin) 600 mg PO BEDTIME [facility] Last Admin: 04/30/20 21:28 Dose: 600 mg Documented by: Sodium Chloride (Normal Saline) 1,000 mls @ 125 mls/hr IV ASDIRECTED JERRI Stop: 04/29/20 17:31 Last Admin: 04/29/20 11:05 Dose: 125 mls/hr Documented by: Sodium Chloride (Normal Saline) 500 mls @ 125 mls/hr IV ASDIRECTED ONE Stop: 04/30/20 13:59 Last Admin: 04/30/20 10:31 Dose: 125 mls/hr Documented by: Sodium Chloride (Normal Saline) 500 mls @ 125 mls/hr IV ONETIME ONE Stop: 05/01/20 09:48 Last Admin: 05/01/20 06:06 Dose: 125 mls/hr Documented by: Insulin Human Lispro (Humalog) 0 unit SUBCUT QIDACANDBED [facility]; Protocol Last Admin: 05/01/20 12:38 Dose: Not Given Documented by: Losartan Potassium (Cozaar) 50 mg PO DAILY [facility] Nitroglycerin (Nitrostat) 0.4 mg SL ONETIME ONE Stop: 04/28/20 14:15 Last Admin: 04/28/20 14:22 Dose: 0.4 mg Documented by: Pantoprazole Sodium (Protonix) 40 mg PO DAILY@0730 [facility] Last Admin: 05/01/20 08:21 Dose: 40 mg Documented by: Sodium Chloride (Saline Flush) 10 ml FLUSH ASDIRECTED PRN PRN Reason: Keep Vein Open Last Admin: 04/28/20 14:29 Dose: 10 ml Documented by: Sodium Polystyrene Sulfonate (Kayexalate) 30 gm PO ONETIME ONE Stop: 05/02/20 05:55 Last Admin: 05/02/20 07:08 Dose: 30 gm Documented by: Spironolactone (Aldactone) 25 mg PO DAILY [facility] Last Admin: 04/29/20 10:17 Dose: Not Given Documented by: - Exam Quality Assessment: Supplemental Oxygen General: Alert, Oriented, Cooperative, No Acute Distress Neck: JVD Lungs: Normal Respiratory Effort, Crackles (diffuse >in lower 1/2). No: Wheezing Cardiovascular: Regular Rate, Regular Rhythm GI/Abdominal Exam: Soft, No Distention Extremities: Pedal Edema (massive pitting edema to the waist bilaterally ). No: Increased Warmth Skin: Warm, Dry Psy/Mental Status: Alert, Normal Affect Sepsis Event Note - Evaluation Sepsis Screening Result: No Definite Risk - Focused Exam Vital Signs: Vital Signs Temp Pulse Resp BP BP BP Pulse Ox 05/02/20 10:40 64 05/02/20 08:01 140/47 L 05/02/20 07:36 64 05/02/20 07:02 35.8 C L 63 18 106/37 L 96 05/02/20 07:00 63 05/02/20 03:30 123/39 L 05/02/20 03:00 36.2 C 18 88/32 L 97 - Problem List & Annotations (1) Congestive heart failure SNOMED Code(s): 97094322 Code(s): I50.9 - HEART FAILURE, UNSPECIFIED Status: Acute Current Visit: Yes Qualifiers: Heart failure type: diastolic Heart failure chronicity: acute on chronic Qualified Code(s): I50.33 - Acute on chronic diastolic (congestive) heart failure (2) COPD (chronic obstructive pulmonary disease) SNOMED Code(s): 39714846 Code(s): J44.9 - CHRONIC OBSTRUCTIVE PULMONARY DISEASE, UNSPECIFIED Status: Chronic Priority: Low Current Visit: No Qualifiers: COPD type: unspecified COPD Qualified Code(s): J44.9 - Chronic obstructive pulmonary disease, unspecified (3) 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 SNOMED Code(s): 033599760 Code(s): I27.22 - PULMONARY HYPERTENSION DUE TO LEFT HEART DISEASE Status: Chronic Current Visit: No (4) Diabetes mellitus, type 2 SNOMED Code(s): 34032136 Code(s): E11.9 - TYPE 2 DIABETES MELLITUS WITHOUT COMPLICATIONS Status: Chronic Priority: Low Current Visit: No Qualifiers: Diabetes mellitus terminal superintendent insulin use: without shelter use Diabetes mellitus complication status: with other specified complication Qualified Code(s): E11.69 - Type 2 diabetes mellitus with other specified complication (5) Rheumatoid arthritis SNOMED Code(s): 68710570 Code(s): M06.9 - RHEUMATOID ARTHRITIS, UNSPECIFIED Status: Chronic Current Visit: No Qualifiers: Rheumatoid arthritis location: unspecified site Rheumatoid factor presence: unspecified presence Qualified Code(s): M06.9 - Rheumatoid arthritis, unspecified (6) CKD (chronic kidney disease), stage III SNOMED Code(s): 323999783 Code(s): N18.30 - CHRONIC KIDNEY DISEASE, STAGE 3 UNSPECIFIED Status: Chronic Current Visit: Yes Qualifiers: Chronic kidney disease stage 3 subtype: stage 3a (GFR 45-59) Qualified Code(s): N18.31 - Chronic kidney disease, stage 3a - Problem List Review Problem List Initiated/Reviewed/Updated: Yes - My Orders Last 24 Hours: My Active Orders 05/01/20 16:30 GLUCOSE POC LAB TO COLLECT JPM [POC] QIDACANDBED 05/01/20 21:00 GLUCOSE POC LAB TO COLLECT JPM [POC] QIDACANDBED Gabapentin [Neurontin] 300 mg PO BID 05/02/20 10:36 Chest wo Cont [CT] Routine 05/02/20 16:00 BASIC METABOLIC PANEL,BMP [CHEM] Timed HGB [HEMOGLOBIN] [HEME] Timed 05/03/20 05:00 CBC W/O DIFF,HEMOGRAM [HEME] Timed (1) COMPREHENSIVE METABOLIC PN,CMP [CHEM] Timed - Plan Plan:: ASSESSMENT AND PLAN - Acute on chronic heart failure with preserved ejection fraction-edema has increased since yesterday. She has increased evidence for volume overload today and increased respiratory compromise but also has a rising creatinine. Tolerating the amlodipine so far. -Bumetanide 2 mg x 1 and reassess this afternoon -Continue amlodipine 5 mg daily -Strict intake and output monitoring -Physical therapy Hyperkalemia-mild but she did receive Kayexalate. 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 Oxygenation stable at this time. -Scheduled and as needed nebulizers Elevated troponin level-mild elevation which is probably demand ischemia with significant hypoxia noted by paramedics. EKG -. Type 2 diabetes mellitus-sugars well controlled so far. I anticipate discharge home without any need for medication management. -Discontinue insulin and Accu-Cheks Acute kidney injury-baseline creatinine is 1 and she is now up to 2.6 with her creatinine. Suspect medications. Volume status quite difficult to assess. -Hold hydroxychloroquine, PPI, gabapentin -Labs in the morning Recent Covid infection-still a little weak but otherwise progressing well. Still has significant changes on her chest x-ray and CT scan of the chest. Rheumatoid arthritis-stable. -Hold hydroxychloroquine Chronic lower extremity venous stasis ulcers-these were present on admission. Currently being managed with pressure wrappings and dressing changes on Mondays and . Maintenance issues - - DVT prophylaxis -apixaban - GI prophylaxis -holding PPI - Nutrition -consistent carbohydrates Disposition -I would anticipate discharge with subacute rehab at [facility]. She needs additional medication management before she is ready for discharge and this will likely be early next week. Primary care physician -Dr. Es Mojica M.D.
--- NOTE | 2020-05-02 11:53 | CRLCT ---
Indication: Worsening hypoxia recent COVID Technique: Noncontrast CT chest Comparison: CT chest 05/23/2018 Findings: Normal caliber thoracic aorta. Enlargement of main pulmonary artery which can be seen with pulmonary arterial hypertension. Heart is enlarged. Prominent to mildly enlarged mediastinal hilar lymph nodes minimally increased from prior study. Coronary artery calcification. No pericardial effusion. Bilateral small to moderate pleural effusions. Diffuse bilateral ground-glass interstitial opacities peripheral areas of patchy consolidation. Bilateral bronchial wall thickening. Slight nodular contour of liver which could be seen with some cirrhosis. Small volume ascites. Small hiatal hernia. There is slight prominence of the upper abdominal lymph nodes some mesenteric stranding in the upper abdomen. Severe compression fracture of T10 indeterminate however not definitively acute. Impression: 1. Diffuse bilateral perihilar ground-glass and interstitial with peripheral and basilar patchy consolidation. Findings are favored to represent infectious inflammatory process such as COVID. Small bilateral pleural effusions. 2. Nodular contour to the liver which can be seen with cirrhosis. Mild amount of ascites. Slight stranding in the mesenteric fat in the upper abdomen. 3. Severe compression fracture T10 age indeterminate however not definitively acute. Please note that all CT scans at this facility use dose modulation, iterative reconstruction, and/or weight-based dosing when appropriate to reduce radiation dose to as low as reasonably achievable. Dictated by Odessa Aguilar MD @ May 02 2020 11:42AM Signed by Dr. Odessa Aguilar @ May 02 2020 11:51AM
[2020-05-02] MEDS: Melatonin 3 MG Tab PO SCH (20:15)
[2020-05-03] MEDS: Diclofenac Sodium 1% Gel 100 GM Tube TOP SCH ×4 (06:00→21:35)
[2020-05-03] MEDS: Albuterol/Ipratropium 3.0-0.5 MG/3 ML Neb Soln NEB SCH ×5 (07:19→20:32)
[2020-05-03] MEDS: rOPINIRole 0.5 MG Tab PO SCH ×3 (08:11→20:32)
[2020-05-03] MEDS: Apixaban 2.5 MG Tab PO SCH ×3 (08:11→20:32)
[2020-05-03] MEDS: amLODIPine 5 MG Tab PO SCH (08:11)
[2020-05-03] MEDS: Nystatin Topical Powder 15 GM Bottle TOP SCH ×4 (09:27→20:32)
--- NOTE | 2020-05-03 10:20 | PCM.PN ---
- General Info Date of Service: 05/03/20 Subjective Update: There were no acute events overnight and the patient seems to be improving today. She still feels a little more short of breath than usual and has a loose but nonproductive cough. She is on 7 L of supplemental oxygen. She feels more energetic today. Appetite is better today. Strength is better today. Creatinine has trended down the last 2 times we have checked it. Potassium level is in the normal range. She has not had any fevers. Functional Status: Reports: Pain Controlled, Tolerating Diet - Review of Systems General: Reports: Weakness. Denies: Fever Pulmonary: Reports: Shortness of Breath, Cough - Patient Data Vitals - Most Recent: Last Vital Signs Temp 36.2 C 05/03/20 07:58 Pulse 70 05/03/20 07:58 Resp 18 05/03/20 07:58 BP 154/56 H 05/03/20 08:11 Pulse Ox 95 05/03/20 07:58 Weight - Most Recent: 83.5 kg I&O - Last 24 Hours: Intake & Output 05/02/20 05/03/20 05/03/20 22:59 06:59 14:59 Intake Total 240 540 Output Total 400 Balance -160 540 Lab Results Last 24 Hours: Laboratory Results - last 24 hr 05/02/20 05/02/20 05/03/20 Range/Units 16:10 16:10 04:30 WBC 4.4 L (4.5-11.0) K/uL RBC 2.95 L (3.30-5.50) M/uL Hgb 9.3 L 8.3 L (12.0-15.0) g/dL Hct 27.9 L (36.0-48.0) % MCV 95 (80-98) fL MCH 28 (27-31) pg MCHC 30 L (32-36) % Plt Count 123 L (150-400) K/uL Sodium 140 (140-148) mmol/L Potassium 5.2 (3.6-5.2) mmol/L Chloride 104 (100-108) mmol/L Carbon Dioxide 34 H (21-32) mmol/L Anion Gap 7.2 (5.0-14.0) mmol/L BUN 90 H* (7-18) mg/dL Creatinine 2.5 H (0.6-1.0) mg/dL Est Cr Clr Drug Dosing 15.71 mL/min Estimated GFR (MDRD) 19 L (>60) Glucose 125 H (74-106) mg/dL Calcium 8.0 L (8.5-10.1) mg/dL Total Bilirubin (0.2-1.0) mg/dL AST (15-37) U/L ALT (12-78) U/L Alkaline Phosphatase (46-116) U/L Total Protein (6.4-8.2) g/dL Albumin (3.4-5.0) g/dL Globulin (2.3-3.5) g/dL Albumin/Globulin Ratio (1.2-2.2) 05/03/20 Range/Units 04:30 WBC (4.5-11.0) K/uL RBC (3.30-5.50) M/uL Hgb (12.0-15.0) g/dL Hct (36.0-48.0) % MCV (80-98) fL MCH (27-31) pg MCHC (32-36) % Plt Count (150-400) K/uL Sodium 142 (140-148) mmol/L Potassium 5.0 (3.6-5.2) mmol/L Chloride 105 (100-108) mmol/L Carbon Dioxide 32 (21-32) mmol/L Anion Gap 5.0 (5.0-14.0) mmol/L BUN 89 H* (7-18) mg/dL Creatinine 2.2 H (0.6-1.0) mg/dL Est Cr Clr Drug Dosing 17.86 mL/min Estimated GFR (MDRD) 22 L (>60) Glucose 82 (74-106) mg/dL Calcium 7.7 L (8.5-10.1) mg/dL Total Bilirubin 0.3 D (0.2-1.0) mg/dL AST 25 (15-37) U/L ALT 22 (12-78) U/L Alkaline Phosphatase 89 (46-116) U/L Total Protein 5.3 L (6.4-8.2) g/dL Albumin 1.6 L (3.4-5.0) g/dL Globulin 3.7 H (2.3-3.5) g/dL Albumin/Globulin Ratio 0.4 L (1.2-2.2) Med Orders - Current: Current Medications Acetaminophen (Tylenol) 650 mg PO Q4H PRN PRN Reason: Pain (Mild 1-3)/fever Hydrocodone Bitart/Acetaminophen ([place] 325-5 Mg) 1 tab PO Q4H PRN PRN Reason: Pain (moderate 4-6) Last Admin: 05/02/20 20:18 Dose: 1 tab Documented by: Albuterol (Proventil Neb Soln) 2.5 mg NEB Q4H PRN PRN Reason: Shortness Of Breath/wheezing Last Admin: 05/02/20 04:54 Dose: 2.5 mg Documented by: Albuterol/Ipratropium (Duoneb 3.0-0.5 Mg/3 Ml) 3 ml NEB QIDRT [facility] Last Admin: 05/03/20 07:19 Dose: 3 ml Documented by: Amlodipine Besylate (Norvasc) 5 mg PO DAILY [facility] Last Admin: 05/03/20 08:11 Dose: 5 mg Documented by: Apixaban (Eliquis) 2.5 mg PO BID [facility] Last Admin: 05/03/20 08:11 Dose: 2.5 mg Documented by: Artificial Tears (Genteal Mild To Moderate Ophth Soln) 0 ml EYEBOTH QID PRN PRN Reason: DRY EYES Diclofenac Sodium (Voltaren 1% Gel) 0 gm TOP QID [facility] Last Admin: 05/03/20 09:27 Dose: Not Given Documented by: Gabapentin (Neurontin) 300 mg PO BID [facility] Last Admin: 05/01/20 20:27 Dose: Not Given Documented by: Hydroxychloroquine Sulfate (Plaquenil) 200 mg PO DAILY [facility] Last Admin: 05/02/20 08:01 Dose: 200 mg Documented by: Lorazepam (Ativan) 0.5 mg IVPUSH Q4H PRN PRN Reason: Nausea/Vomiting Magnesium Hydroxide (Milk Of Magnesia) 30 ml PO Q12H PRN PRN Reason: Constipation Melatonin (Melatonin) 9 mg PO BEDTIME [facility] Last Admin: 05/02/20 20:15 Dose: 9 mg Documented by: Nystatin (Nystop) 0 gm TOP TID [facility] Last Admin: 05/03/20 09:27 Dose: 1 applic Documented by: Ondansetron HCl (Zofran) 4 mg IV Q6H PRN PRN Reason: Nausea/Vomiting Last Admin: 04/29/20 12:36 Dose: 4 mg Documented by: Ondansetron HCl (Zofran Odt) 4 mg PO Q6H PRN PRN Reason: Nausea able to take PO Ropinirole HCl (Requip) 1.5 mg PO BID [facility] Last Admin: 05/03/20 08:11 Dose: 1.5 mg Documented by: Senna/Docusate Sodium (Senna Plus) 1 tab PO BID PRN PRN Reason: Constipation Sodium Chloride (Saline Flush) 10 ml FLUSH ASDIRECTED PRN PRN Reason: Keep Vein Open Last Admin: 04/28/20 14:28 Dose: 10 ml Documented by: Discontinued Medications Bumetanide (Bumex) 1 mg IVPUSH ONETIME ONE Stop: 04/28/20 14:13 Last Admin: 04/28/20 14:23 Dose: 1 mg Documented by: Bumetanide (Bumex) 2 mg IVPUSH ONETIME ONE Stop: 04/29/20 07:01 Last Admin: 04/29/20 06:32 Dose: 2 mg Documented by: Bumetanide (Bumex) 2 mg IVPUSH ONETIME ONE Stop: 05/02/20 10:35 Last Admin: 05/02/20 11:43 Dose: 2 mg Documented by: Carvedilol (Coreg) 3.125 mg PO BID [facility] Last Admin: 04/28/20 20:53 Dose: 3.125 mg Documented by: Gabapentin (Neurontin) 300 mg PO BID@0800,1200 [facility] Last Admin: 05/01/20 08:21 Dose: 300 mg Documented by: Gabapentin (Neurontin) 600 mg PO BEDTIME [facility] Last Admin: 04/30/20 21:28 Dose: 600 mg Documented by: Sodium Chloride (Normal Saline) 1,000 mls @ 125 mls/hr IV ASDIRECTED [facility] Stop: 04/29/20 17:31 Last Admin: 04/29/20 11:05 Dose: 125 mls/hr Documented by: Sodium Chloride (Normal Saline) 500 mls @ 125 mls/hr IV ASDIRECTED ONE Stop: 04/30/20 13:59 Last Admin: 04/30/20 10:31 Dose: 125 mls/hr Documented by: Sodium Chloride (Normal Saline) 500 mls @ 125 mls/hr IV ONETIME ONE Stop: 05/01/20 09:48 Last Admin: 05/01/20 06:06 Dose: 125 mls/hr Documented by: Insulin Human Lispro (Humalog) 0 unit SUBCUT QIDACANDBED [facility]; Protocol Last Admin: 05/01/20 12:38 Dose: Not Given Documented by: Losartan Potassium (Cozaar) 50 mg PO DAILY [facility] Nitroglycerin (Nitrostat) 0.4 mg SL ONETIME ONE Stop: 04/28/20 14:15 Last Admin: 04/28/20 14:22 Dose: 0.4 mg Documented by: Pantoprazole Sodium (Protonix) 40 mg PO DAILY@0730 [facility] Last Admin: 05/01/20 08:21 Dose: 40 mg Documented by: Sodium Chloride (Saline Flush) 10 ml FLUSH ASDIRECTED PRN PRN Reason: Keep Vein Open Last Admin: 04/28/20 14:29 Dose: 10 ml Documented by: Sodium Polystyrene Sulfonate (Kayexalate) 30 gm PO ONETIME ONE Stop: 05/02/20 05:55 Last Admin: 05/02/20 07:08 Dose: 30 gm Documented by: Spironolactone (Aldactone) 25 mg PO DAILY [facility] Last Admin: 04/29/20 10:17 Dose: Not Given Documented by: - Exam Quality Assessment: Supplemental Oxygen General: Alert, Oriented, Cooperative, No Acute Distress Lungs: Normal Respiratory Effort, Crackles (mild diffuse), Rhonchi (moderate upper resp). No: Wheezing Cardiovascular: Regular Rate, Regular Rhythm GI/Abdominal Exam: Soft, No Distention Extremities: Pedal Edema (pitting edema both legs to the waist ). No: Increased Warmth Skin: Warm, Dry Psy/Mental Status: Alert, Normal Affect Sepsis Event Note - Evaluation Sepsis Screening Result: No Definite Risk - Focused Exam Vital Signs: Vital Signs Temp Pulse Resp BP BP Pulse Ox 05/03/20 08:11 154/56 H 05/03/20 07:58 36.2 C 70 18 154/56 H 95 05/03/20 07:22 64 05/03/20 02:48 35.3 C L 61 18 132/45 L 91 L 05/03/20 00:11 36.4 C 68 20 138/40 L 94 L - Problem List & Annotations (1) Congestive heart failure SNOMED Code(s): 54364491 Code(s): I50.9 - HEART FAILURE, UNSPECIFIED Status: Acute Current Visit: Yes Qualifiers: Heart failure type: diastolic Heart failure chronicity: acute on chronic Qualified Code(s): I50.33 - Acute on chronic diastolic (congestive) heart failure (2) COPD (chronic obstructive pulmonary disease) SNOMED Code(s): 19465174 Code(s): J44.9 - CHRONIC OBSTRUCTIVE PULMONARY DISEASE, UNSPECIFIED Status: Chronic Priority: Low Current Visit: No Qualifiers: COPD type: unspecified COPD Qualified Code(s): J44.9 - Chronic obstructive pulmonary disease, unspecified (3) 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 SNOMED Code(s): 892583742 Code(s): I27.22 - PULMONARY HYPERTENSION DUE TO LEFT HEART DISEASE Status: Chronic Current Visit: No (4) Diabetes mellitus, type 2 SNOMED Code(s): 05313277 Code(s): E11.9 - TYPE 2 DIABETES MELLITUS WITHOUT COMPLICATIONS Status: C hronic Priority: Low Current Visit: No Qualifiers: Diabetes mellitus terminal operator insulin use: without fdc use Diabetes mellitus complication status: with other specified complication Qualified Code(s): E11.69 - Type 2 diabetes mellitus with other specified complication (5) Rheumatoid arthritis SNOMED Code(s): 75035502 Code(s): M06.9 - RHEUMATOID ARTHRITIS, UNSPECIFIED Status: Chronic Current Visit: No Qualifiers: Rheumatoid arthritis location: unspecified site Rheumatoid factor presence: unspecified presence Qualified Code(s): M06.9 - Rheumatoid arthritis, unspecified (6) CKD (chronic kidney disease), stage III SNOMED Code(s): 534912021 Code(s): N18.30 - CHRONIC KIDNEY DISEASE, STAGE 3 UNSPECIFIED Status: Chronic Current Visit: Yes Qualifiers: Chronic kidney disease stage 3 subtype: stage 3a (GFR 45-59) Qualified Code(s): N18.31 - Chronic kidney disease, stage 3a - Problem List Review Problem List Initiated/Reviewed/Updated: Yes - My Orders Last 24 Hours: My Active Orders 05/03/20 10:18 PROCALCITONIN [CHEM] Routine 05/03/20 10:30 Albumin Human [Albumin 25%] 25 gm in 100 ml IV Q6H 05/03/20 13:00 Bumetanide [Bumex] 2 mg IVPUSH ONETIME ONE 05/04/20 05:00 BASIC METABOLIC PANEL,BMP [CHEM] Timed CBC W/O DIFF,HEMOGRAM [HEME] Timed (1) - Plan Plan:: ASSESSMENT AND PLAN - Acute on chronic heart failure with preserved ejection fraction-edema stable. Kidney function improving so hopefully we can attempt more diuresis today. -Bumetanide 2 mg x 1 this afternoon, reassess in the morning -Continue amlodipine 5 mg daily -Strict intake and output monitoring -Physical therapy Acute kidney injury-baseline creatinine is 1, creatinine was as high as 2.6 but is now trending down. I am suspicious she may have had interstitial nephritis because of her PPI with significant BUN and potassium elevations. Kidney function seems to be improving since this medication was stopped. -Hold hydroxychloroquine, gabapentin -PPI discontinued -Labs in the morning Possible bronchitis-patient has an increase in her sputum and a small increase in her supplemental oxygen requirement but no fevers. Procalcitonin level very mildly elevated and could suggest a lower respiratory tract infection. -Doxycycline twice daily for 5 days -Acapella Hyperkalemia-improved with Kayexalate and diuresis. 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 Oxygenation stable at this time. -Calcium channel beryl initiated as above -Scheduled and as needed nebulizers Elevated troponin level-mild elevation which is probably demand ischemia with significant hypoxia noted by paramedics. EKG -. Type 2 diabetes mellitus-sugars improved after steroids were tapered. She is now off insulin and Accu-Cheks have been discontinued. Recent Covid infection-still a little weak but otherwise progressing well. Still has significant changes on her chest x-ray and CT scan of the chest. Rheumatoid arthritis-stable. -Hold hydroxychloroquine Chronic lower extremity venous stasis ulcers-these were present on admission. Currently being managed with pressure wrappings and dressing changes daily. Maintenance issues - - DVT prophylaxis -apixaban - GI prophylaxis -PPI discontinued as above - Nutrition -consistent carbohydrates Disposition -I would anticipate discharge with subacute rehab at [facility]. She needs additional medication management before she is ready for discharge and this will likely be early next week. Primary care physician -Dr. Es Mojica M.D.
[2020-05-03] MEDS: Doxycycline 100 MG Cap PO SCH ×3 (11:32→20:32)
[2020-05-03] MEDS ORDERED: Bumetanide 1 MG/4 ML MDV IVPUSH ONE (13:00)
[2020-05-03] MEDS: Albuterol 0.083% 2.5 MG/3 ML Neb Soln NEB PRN (14:05)
[2020-05-03] MEDS: Melatonin 3 MG Tab PO SCH ×2 (19:09→20:32)
[2020-05-04] MEDS: Diclofenac Sodium 1% Gel 100 GM Tube TOP SCH ×4 (05:10→21:46)
[2020-05-04] MEDS: Albuterol/Ipratropium 3.0-0.5 MG/3 ML Neb Soln NEB SCH ×4 (06:58→20:08)
[2020-05-04] MEDS: Bumetanide 2.5 MG/10 ML MDV IVPUSH SCH ×2 (08:46→20:02)
[2020-05-04] MEDS: rOPINIRole 0.5 MG Tab PO SCH ×2 (08:52→20:01)
[2020-05-04] MEDS: Apixaban 2.5 MG Tab PO SCH ×2 (08:52→20:01)
[2020-05-04] MEDS: amLODIPine 5 MG Tab PO SCH (08:52)
[2020-05-04] MEDS: Doxycycline 100 MG Cap PO SCH (08:52)
[2020-05-04] MEDS: Nystatin Topical Powder 15 GM Bottle TOP SCH ×3 (08:53→20:01)
[2020-05-04] MEDS ORDERED: Levofloxacin/Dextrose 5%-Water 750 MG in Premix Bag 1 BAG IV SCH (10:00)
--- NOTE | 2020-05-04 10:29 | CR ---
CHEST: Portable 05/04/2020 at 1023 CLINICAL HISTORY:Hypoxia COMPARISON:CT chest 05/02/2020 FINDINGS: Heart is enlarged. Pulmonary vascularity is obscured. There are diffuse bilateral pulmonary infiltrates. These are similar to 05/02/2020 considering technical differences. IMPRESSION: Moderate diffuse bilateral pulmonary infiltrates. Patient has history of covid.
[2020-05-04] MEDS ORDERED: Lactated Ringers 1,000 ML IV ONE (11:06)
[2020-05-04] MEDS ORDERED: Sodium Chloride 0.9% 10 ML Syringe FLUSH PRN (11:06)
[2020-05-04] MEDS: Melatonin 3 MG Tab PO SCH (20:01)
[2020-05-04] MEDS: Acetaminophen/HYDROcodone 325-5 MG Tab PO PRN (20:33)
[2020-05-05] MEDS: Diclofenac Sodium 1% Gel 100 GM Tube TOP SCH ×4 (05:53→21:04)
[2020-05-05] MEDS: Albuterol/Ipratropium 3.0-0.5 MG/3 ML Neb Soln NEB SCH ×4 (06:59→20:27)
[2020-05-05] MEDS: amLODIPine 5 MG Tab PO SCH (09:40)
[2020-05-05] MEDS: rOPINIRole 0.5 MG Tab PO SCH ×2 (09:40→20:28)
[2020-05-05] MEDS: Dextrose 5% in Water 1,000 ML IV SCH ×2 (09:41→23:37)
[2020-05-05] MEDS: Nystatin Topical Powder 15 GM Bottle TOP SCH ×3 (09:41→20:28)
[2020-05-05] MEDS: Apixaban 2.5 MG Tab PO SCH ×2 (09:41→20:28)
[2020-05-05] MEDS ORDERED: LORazepam ORAL Concentrate 1MG/0.5ML U/D PO PRN (10:08)
--- NOTE | 2020-05-05 10:56 | PCM.PN ---
- General Info Date of Service: 05/05/20 Subjective Update: Ms. Obrien continues to experience significant respiratory compromise, requiring increased levels of supplemental oxygen to maintain saturations. We discussed her current condition and lack of significant improvement over the last 24 hours despite initiation of antibiotics and diuretic therapy. She has significant underlying COPD complicated by ongoing infiltrates related to recent Covid infection and probable ARDS. She would like to continue current treatment but would like to move to a more palliative care approach with medications as needed for comfort. Functional Status: Reports: Tolerating Diet - Review of Systems General: Reports: Weakness, Fatigue. Denies: Fever, Chills Pulmonary: Reports: Shortness of Breath, Cough, Sputum. Denies: Pleuritic Chest Pain, Hemoptysis, Wheezing Cardiovascular: Reports: Dyspnea on Exertion. Denies: Chest Pain, Palpitations, Orthopnea, PND, Edema, Lightheadedness Gastrointestinal: Reports: No Symptoms - Patient Data Vitals - Most Recent: Last Vital Signs Temp 96.5 F L 05/05/20 07:20 Pulse 106 H 05/05/20 07:20 Resp 20 05/05/20 07:20 BP 162/63 H 05/05/20 09:40 Pulse Ox 93 L 05/05/20 07:20 Weight - Most Recent: 181 lb I&O - Last 24 Hours: Intake & Output 05/04/20 05/05/20 05/05/20 22:59 06:59 14:59 Intake Total 30 250 Output Total 1300 1350 Balance -1270 -1100 Lab Results Last 24 Hours: Laboratory Results - last 24 hr 05/05/20 05/05/20 Range/Units 05:23 05:23 WBC 3.2 L (4.5-11.0) K/uL RBC 2.85 L (3.30-5.50) M/uL Hgb 7.8 L (12.0-15.0) g/dL Hct 27.5 L (36.0-48.0) % MCV 97 (80-98) fL MCH 27 (27-31) pg MCHC 28 L (32-36) % Plt Count 99 L (150-400) K/uL Neut % (Auto) 75 H (36-66) % Lymph % (Auto) 16 L (24-44) % Clayton % (Auto) 7 H (2-6) % Eos % (Auto) 1 L (2-4) % Baso % (Auto) 0 (0-1) % Sodium 153 H (140-148) mmol/L Potassium 3.8 (3.6-5.2) mmol/L Chloride 111 H (100-108) mmol/L Carbon Dioxide 36 H (21-32) mmol/L Anion Gap 9.8 (5.0-14.0) mmol/L BUN 82 H* (7-18) mg/dL Creatinine 1.4 H (0.6-1.0) mg/dL Est Cr Clr Drug Dosing 28.06 mL/min Estimated GFR (MDRD) 37 L (>60) Glucose 91 (74-106) mg/dL Calcium 8.9 (8.5-10.1) mg/dL Antwon Results Last 24 Hours: Microbiology 05/04/20 09:30 Aerobic Blood Culture - Preliminary Blood - Venous - Lab Draw NO GROWTH AFTER 1 DAY Anaerobic Blood Culture - Preliminary NO GROWTH AFTER 1 DAY 05/04/20 09:10 Aerobic Blood Culture - Preliminary Blood - Arm, Right NO GROWTH AFTER 1 DAY Anaerobic Blood Culture - Preliminary NO GROWTH AFTER 1 DAY Med Orders - Current: Current Medications Acetaminophen (Tylenol) 650 mg PO Q4H PRN PRN Reason: Pain (Mild 1-3)/fever Hydrocodone Bitart/Acetaminophen (Marion 325-5 Mg) 1 tab PO Q4H PRN PRN Reason: Pain (moderate 4-6) Last Admin: 05/04/20 20:33 Dose: 1 tab Documented by: Albuterol (Proventil Neb Soln) 2.5 mg NEB Q4H PRN PRN Reason: Shortness Of Breath/wheezing Last Admin: 05/03/20 14:05 Dose: 2.5 mg Documented by: Albuterol/Ipratropium (Duoneb 3.0-0.5 Mg/3 Ml) 3 ml NEB QIDRT [facility] Last Admin: 05/05/20 10:50 Dose: 3 ml Documented by: Amlodipine Besylate (Norvasc) 5 mg PO DAILY [facility] Last Admin: 05/05/20 09:40 Dose: 5 mg Documented by: Apixaban (Eliquis) 2.5 mg PO BID [facility] Last Admin: 05/05/20 09:41 Dose: 2.5 mg Documented by: Artificial Tears (Genteal Mild To Moderate Ophth Soln) 0 ml EYEBOTH QID PRN PRN Reason: DRY EYES Diclofenac Sodium (Voltaren 1% Gel) 0 gm TOP QID [facility] Last Admin: 05/05/20 09:41 Dose: Not Given Documented by: Gabapentin (Neurontin) 300 mg PO BID [facility] Last Admin: 05/01/20 20:27 Dose: Not Given Documented by: Hydroxychloroquine Sulfate (Plaquenil) 200 mg PO DAILY [facility] Last Admin: 05/02/20 08:01 Dose: 200 mg Documented by: Meropenem 1 gm/ Sodium (Chloride) 50 mls @ 100 mls/hr IV Q12H [facility] Last Admin: 05/05/20 00:32 Dose: 100 mls/hr Documented by: Dextrose/Water (Dextrose 5% In Water) 1,000 mls @ 75 mls/hr IV ASDIRECTED [facility] Last Admin: 05/05/20 09:41 Dose: 75 mls/hr Documented by: Levofloxacin/Dextrose 750 mg/ (Premix) 150 mls @ 100 mls/hr IV Q48H [facility] Lorazepam (Ativan) 0.5 mg IVPUSH Q4H PRN PRN Reason: Nausea/Vomiting Last Admin: 05/04/20 21:30 Dose: 0.5 mg Documented by: Lorazepam (Ativan Oral Concentrate 1mg/0.5 Ml U/D) 0.5 mg PO Q2H PRN PRN Reason: Anxiety Magnesium Hydroxide (Milk Of Magnesia) 30 ml PO Q12H PRN PRN Reason: Constipation Melatonin (Melatonin) 9 mg PO BEDTIME [facility] Last Admin: 05/04/20 20:01 Dose: 9 mg Documented by: Morphine Sulfate (Morphine 10 Mg/0.5 Ml Oral Syringe) 2.5 mg PO Q2H PRN PRN Reason: Dyspnea Nystatin (Nystop) 0 gm TOP TID [facility] Last Admin: 05/05/20 09:41 Dose: Not Given Documented by: Ondansetron HCl (Zofran) 4 mg IV Q6H PRN PRN Reason: Nausea/Vomiting Last Admin: 04/29/20 12:36 Dose: 4 mg Documented by: Ondansetron HCl (Zofran Odt) 4 mg PO Q6H PRN PRN Reason: Nausea able to take PO Ropinirole HCl (Requip) 1.5 mg PO BID [facility] Last Admin: 05/05/20 09:40 Dose: 1.5 mg Documented by: Senna/Docusate Sodium (Senna Plus) 1 tab PO BID PRN PRN Reason: Constipation Sodium Chloride (Saline Flush) 10 ml FLUSH ASDIRECTED PRN PRN Reason: Keep Vein Open Last Admin: 04/28/20 14:28 Dose: 10 ml Documented by: Sodium Chloride (Saline Flush) 10 ml FLUSH ASDIRECTED PRN PRN Reason: Keep Vein Open Discontinued Medications Bumetanide (Bumex) 1 mg IVPUSH ONETIME ONE Stop: 04/28/20 14:13 Last Admin: 04/28/20 14:23 Dose: 1 mg Documented by: Bumetanide (Bumex) 2 mg IVPUSH ONETIME ONE Stop: 04/29/20 07:01 Last Admin: 04/29/20 06:32 Dose: 2 mg Documented by: Bumetanide (Bumex) 2 mg IVPUSH ONETIME ONE Stop: 05/02/20 10:35 Last Admin: 05/02/20 11:43 Dose: 2 mg Documented by: Bumetanide (Bumex) 2 mg IVPUSH ONETIME ONE Stop: 05/03/20 13:01 Last Admin: 05/03/20 14:05 Dose: 2 mg Documented by: Bumetanide (Bumex) 2 mg IVPUSH BID [facility] Stop: 05/04/20 21:01 Last Admin: 05/04/20 20:02 Dose: 2 mg Documented by: Carvedilol (Coreg) 3.125 mg PO BID [facility] Last Admin: 04/28/20 20:53 Dose: 3.125 mg Documented by: Doxycycline Hyclate (Vibramycin) 100 mg PO BID [facility] Last Admin: 05/04/20 08:52 Dose: 100 mg Documented by: Gabapentin (Neurontin) 300 mg PO BID@0800,1200 [facility] Last Admin: 05/01/20 08:21 Dose: 300 mg Documented by: Gabapentin (Neurontin) 600 mg PO BEDTIME [facility] Last Admin: 04/30/20 21:28 Dose: 600 mg Documented by: Sodium Chloride (Normal Saline) 1,000 mls @ 125 mls/hr IV ASDIRECTED [facility] Stop: 04/29/20 17:31 Last Admin: 04/29/20 11:05 Dose: 125 mls/hr Documented by: Sodium Chloride (Normal Saline) 500 mls @ 125 mls/hr IV ASDIRECTED ONE Stop: 04/30/20 13:59 Last Admin: 04/30/20 10:31 Dose: 125 mls/hr Documented by: Sodium Chloride (Normal Saline) 500 mls @ 125 mls/hr IV ONETIME ONE Stop: 05/01/20 09:48 Last Admin: 05/01/20 06:06 Dose: 125 mls/hr Documented by: Albumin Human (Albumin 25%) 25 gm in 100 mls @ 25 mls/hr IV Q6H [facility] Stop: 05/04/20 08:59 Last Admin: 05/04/20 05:19 Dose: 25 mls/hr Documented by: Levofloxacin/Dextrose 750 mg/ (Premix) 150 mls @ 100 mls/hr IV Q24H [facility] Last Admin: 05/04/20 09:31 Dose: 100 mls/hr Documented by: Insulin Human Lispro (Humalog) 0 unit SUBCUT QIDACANDBED [facility]; Protocol Last Admin: 05/01/20 12:38 Dose: Not Given Documented by: Losartan Potassium (Cozaar) 50 mg PO DAILY [facility] Nitroglycerin (Nitrostat) 0.4 mg SL ONETIME ONE Stop: 04/28/20 14:15 Last Admin: 04/28/20 14:22 Dose: 0.4 mg Documented by: Pantoprazole Sodium (Protonix) 40 mg PO DAILY@0730 [facility] Last Admin: 05/01/20 08:21 Dose: 40 mg Documented by: Sodium Chloride (Saline Flush) 10 ml FLUSH ASDIRECTED PRN PRN Reason: Keep Vein Open Last Admin: 04/28/20 14:29 Dose: 10 ml Documented by: Sodium Polystyrene Sulfonate (Kayexalate) 30 gm PO ONETIME ONE Stop: 05/02/20 05:55 Last Admin: 05/02/20 07:08 Dose: 30 gm Documented by: Spironolactone (Aldactone) 25 mg PO DAILY [facility] Last Admin: 04/29/20 10:17 Dose: Not Given Documented by: - Exam Quality Assessment: Supplemental Oxygen, Urine Catheter, DVT Prophylaxis General: Alert, Oriented, Cooperative, Moderate Distress Lungs: Crackles, Rales, Rhonchi, Wheezing Cardiovascular: Regular Rate, Regular Rhythm, No Murmurs GI/Abdominal Exam: Soft, Non-Tender, No Organomegaly, No Distention Extremities: Non-Tender, No Pedal Edema Sepsis Event Note - Evaluation Sepsis Screening Result: Severe Sepsis Risk - Focused Exam Vital Signs: Vital Signs Temp Pulse Resp BP BP BP Pulse Ox 05/05/20 09:40 162/63 H 05/05/20 07:20 96.5 F L 106 H 20 162/63 H 93 L 05/05/20 06:59 78 100 05/05/20 02:46 96.0 F L 105 H 24 H 167/60 H 95 05/05/20 01:00 94 L - Problem List Review Problem List Initiated/Reviewed/Updated: Yes - My Orders Last 24 Hours: My Active Orders 05/04/20 12:00 Meropenem [Merrem] 1 gm Sodium Chloride 0.9% [Normal Saline] 50 ml IV Q12H 05/04/20 20:06 Overnight Pulse Oximetry [RC] Click to Edit Urinary Catheter Assessment [RC] ASDIRECTED Pulse Oximetry Continuous Monitoring [OM.PC] Routine 05/04/20 20:15 Insert Villeda Catheter [Insert Urinary Catheter] [OM.PC] Q24H 05/05/20 08:00 Dextrose 5% in Water 1,000 ml IV ASDIRECTED 05/05/20 10:08 LORazepam [Ativan ORAL Concentrate 1MG/0.5 ML U/D] 0.5 mg PO Q2H PRN Morphine [Morphine 10 MG/0.5 ML Oral Syringe] 2.5 mg PO Q2H PRN 05/06/20 05:00 BASIC METABOLIC PANEL,BMP [CHEM] Timed CBC WITH AUTO DIFF [HEME] Timed 05/06/20 10:00 Levofloxacin/Dextrose 5%-Water [Levaquin in D5W 750 MG/150 ML] 750 mg Premix Bag 1 bag IV Q48H - Plan Plan:: ASSESSMENT AND PLAN - Acute on chronic heart failure with preserved ejection fraction-edema stable. No significant improvement noted with diuresis yesterday -Bumetanide the day -Continue amlodipine 5 mg daily -Strict intake and output monitoring -Physical therapy Acute kidney injury-no function has improved significantly from admission but is not yet back to baseline. Likely secondary to dehydration and probable effect of proton pump inhibitor therapy. -Hold hydroxychloroquine, gabapentin -PPI discontinued -Labs in the morning Persistent pulmonary infiltrates-patient has an increase in her sputum and a small increase in her supplemental oxygen requirement but no fevers. Procalcitonin level very mildly elevated and could suggest a lower respiratory tract infection. Some of current infiltrate is related to recent Covid infection with ARDS. -Blood cultures pending -Continue expanded antibiotic coverage with meropenem and levofloxacin -Supplemental oxygen as needed -Noninvasive positive pressure ventilation as tolerated Hypernatremia -Hold diuretic therapy today -D5W at 75 cc/h -Recheck sodium level in a.m. Palliative care-she wants to continue current management but would also like to be treated for comfort. -Morphine and lorazepam as needed for comfort Hyperkalemia-resolved Severe oxygen dependent COPD-complicated by severe pulmonary hypertension and persistent bilateral pulmonary infiltrates related to recent Covid infection and ARDS. -Calcium channel beryl initiated as above -Scheduled and as needed nebulizers Type 2 diabetes mellitus-sugars improved after steroids were tapered. She is now off insulin and Accu-Cheks have been discontinued. Recent Covid infection-still a little weak but otherwise progressing well. Still has significant changes on her chest x-ray and CT scan of the chest. Rheumatoid arthritis-stable. -Hold hydroxychloroquine Chronic lower extremity venous stasis ulcers-these were present on admission. Currently being managed with pressure wrappings and dressing changes daily. Maintenance issues - - DVT prophylaxis -apixaban - GI prophylaxis -PPI discontinued as above - Nutrition -consistent carbohydrates Disposition -I would anticipate discharge with subacute rehab at [facility]. She needs additional medication management before she is ready for discharge and this will likely be early next week. Primary care physician -Dr. Es Stewart
[2020-05-05] MEDS: Morphine 10 MG/0.5 ML Oral Syringe PO PRN (14:15)
--- NOTE | 2020-05-05 14:55 | PN ---
DATE OF SERVICE: 05/04/2020 Ms. Obrien has unfortunately not done as well here in the last 24 hours with increasing hypoxia, requiring increased level of supplemental oxygen. She states she does not feel as well, more weak, and appetite has been very poor. She becomes short of breath even with eating and talking. Saturations have improved with use of a face mask. We did try BiPAP, which she refused after a very short trial. Blood gases do show chronic CO2 retention, but adequate oxygenation. Chest x-ray shows persistent infiltrates consistent with previous COVID infection. PHYSICAL EXAMINATION: VITAL SIGNS: Blood pressure 170/56, heart rate 78, respiratory rate 16, temperature 96.9 degrees, saturation 95%. Currently on a mask. CARDIAC: Distant heart sounds. S1, S2 normal. No murmurs, S3, or S4. No jugular venous distention. LUNGS: Bilateral inspiratory rales or scattered rhonchi. Minimal wheezes. ABDOMEN: Soft and nontender. No palpable masses. EXTREMITIES: She has no peripheral edema. LABORATORY TESTS AND DIAGNOSTIC STUDIES: Blood gases and chest x-ray as above. White blood cell count is 3800, hemoglobin of 8.2, platelets 106,000. BMP shows chloride of 109, carbon dioxide of 34, BUN of 89 with a creatinine of 1.7, glucose of 135. IMPRESSION: 1. Acute on chronic heart failure with preserved ejection fraction. Continue to work toward diuresis. Her renal function has improved significantly over the last 24 hours. We will give Bumex 2 mg twice today. Continue other medical therapy and continue to monitor intake and output. 2. Acute kidney injury. Renal function significantly improved in the last 24 hours. Continue to closely monitor intake and output. This is felt to be secondary to interstitial nephritis related to PPI use PPI is on hold. 3. Respiratory tract infection. Procalcitonin was mildly elevated given her progression of symptoms and worsening hypoxia, we will expand coverage. Discontinue doxycycline. Blood cultures will be obtained. We will place her on meropenem and levofloxacin. 4. Hyperkalemia, resolved. 5. Oxygen-dependent chronic obstructive pulmonary disease, complicated by pulmonary hypertension, recent COVID infection with bilateral pulmonary infiltrates, possible bacterial component at the present time. She is on calcium channel beryl for management of pulmonary hypertension. We will manage infiltrates as above. 6. Elevated troponin level, thought to be demand ischemia in the setting of hypoxia. 7. Type 2 diabetes mellitus. Glucose level is improved now that she is off steroids. 8. Recent COVID infection, still evidence of infiltrates noted on CT as well as chest x- ray. 9. Rheumatoid arthritis, stable. Hydrochloroquine is on hold. 10.Chronic lower extremity venous stasis ulcers. These are present on admission, being managed with pressure wraps and dressing changes daily maintenance issues. Continue current DVT prophylaxis with apixaban. GI prophylaxis, PPI has been discontinued. Nutrition, consistent carbohydrate diet. DISPOSITION: Anticipate discharge to [facility] for restorative physical therapy and occupational therapy. Lawson Rivera MD /[id number]
[2020-05-05] MEDS: Gabapentin 300 MG Cap PO SCH (20:27)
[2020-05-05] MEDS: Melatonin 3 MG Tab PO SCH (20:28)
[2020-05-06] MEDS: Diclofenac Sodium 1% Gel 100 GM Tube TOP SCH ×4 (05:03→21:11)
[2020-05-06] MEDS: Albuterol/Ipratropium 3.0-0.5 MG/3 ML Neb Soln NEB SCH ×4 (07:37→20:15)
[2020-05-06] MEDS: amLODIPine 5 MG Tab PO SCH (09:16)
[2020-05-06] MEDS: Gabapentin 300 MG Cap PO SCH ×2 (09:16→20:21)
[2020-05-06] MEDS: Apixaban 2.5 MG Tab PO SCH ×2 (09:16→20:21)
[2020-05-06] MEDS: Nystatin Topical Powder 15 GM Bottle TOP SCH ×3 (09:17→20:21)
[2020-05-06] MEDS: rOPINIRole 0.5 MG Tab PO SCH ×2 (09:17→20:21)
[2020-05-06] MEDS: Levofloxacin/Dextrose 5%-Water 750 MG in Premix Bag 1 BAG IV SCH (09:22)
--- NOTE | 2020-05-06 12:10 | PCM.PN ---
- General Info Date of Service: 05/06/20 Subjective Update: Ms. Obrien reports that she feels modestly improved today with less shortness of breath. Saturations are good today on high level of supplemental oxygen. Vital signs have remained stable and she is afebrile. - Patient Data Vitals - Most Recent: Last Vital Signs Temp 96.9 F 05/06/20 10:06 Pulse 86 05/06/20 10:06 Resp 18 05/06/20 10:06 BP 146/58 H 05/06/20 10:06 Pulse Ox 99 05/06/20 10:06 Weight - Most Recent: 179 lb 4.8 oz I&O - Last 24 Hours: Intake & Output 05/05/20 05/06/20 05/06/20 22:59 06:59 14:59 Intake Total 811 1586 Output Total 350 450 350 Balance 461 -450 1236 Lab Results Last 24 Hours: Laboratory Results - last 24 hr 05/06/20 05/06/20 Range/Units 05:10 05:10 WBC 2.9 L (4.5-11.0) K/uL RBC 2.87 L (3.30-5.50) M/uL Hgb 8.1 L (12.0-15.0) g/dL Hct 27.8 L (36.0-48.0) % MCV 97 (80-98) fL MCH 28 (27-31) pg MCHC 29 L (32-36) % Plt Count 95 L (150-400) K/uL Neut % (Auto) 74 H (36-66) % Lymph % (Auto) 15 L (24-44) % [place] % (Auto) 8 H (2-6) % Eos % (Auto) 3 (2-4) % Baso % (Auto) 1 (0-1) % Sodium 149 H (140-148) mmol/L Potassium 3.9 (3.6-5.2) mmol/L Chloride 109 H (100-108) mmol/L Carbon Dioxide 36 H (21-32) mmol/L Anion Gap 7.9 (5.0-14.0) mmol/L BUN 60 H (7-18) mg/dL Creatinine 1.1 H (0.6-1.0) mg/dL Est Cr Clr Drug Dosing 35.71 mL/min Estimated GFR (MDRD) 49 L (>60) Glucose 115 H (74-106) mg/dL Calcium 8.6 (8.5-10.1) mg/dL Antwon Results Last 24 Hours: Microbiology 05/04/20 09:30 Aerobic Blood Culture - Preliminary Blood - Venous - Lab Draw NO GROWTH AFTER 2 DAYS Anaerobic Blood Culture - Preliminary NO GROWTH AFTER 2 DAYS 05/04/20 09:10 Aerobic Blood Culture - Preliminary Blood - Arm, Right NO GROWTH AFTER 2 DAYS Anaerobic Blood Culture - Preliminary NO GROWTH AFTER 2 DAYS Med Orders - Current: Current Medications Acetaminophen (Tylenol) 650 mg PO Q4H PRN PRN Reason: Pain (Mild 1-3)/fever Hydrocodone Bitart/Acetaminophen ([place] 325-5 Mg) 1 tab PO Q4H PRN PRN Reason: Pain (moderate 4-6) Last Admin: 05/04/20 20:33 Dose: 1 tab Documented by: Albuterol (Proventil Neb Soln) 2.5 mg NEB Q4H PRN PRN Reason: Shortness Of Breath/wheezing Last Admin: 05/03/20 14:05 Dose: 2.5 mg Documented by: Albuterol/Ipratropium (Duoneb 3.0-0.5 Mg/3 Ml) 3 ml NEB QIDRT [facility] Last Admin: 05/06/20 10:41 Dose: 3 ml Documented by: Amlodipine Besylate (Norvasc) 5 mg PO DAILY [facility] Last Admin: 05/06/20 09:16 Dose: 5 mg Documented by: Apixaban (Eliquis) 2.5 mg PO BID [facility] Last Admin: 05/06/20 09:16 Dose: 2.5 mg Documented by: Artificial Tears (Genteal Mild To Moderate Ophth Soln) 0 ml EYEBOTH QID PRN PRN Reason: DRY EYES Bumetanide (Bumex) 1 mg IVPUSH ONETIME ONE Stop: 05/06/20 12:07 Diclofenac Sodium (Voltaren 1% Gel) 0 gm TOP QID [facility] Last Admin: 05/06/20 09:17 Dose: Not Given Documented by: Gabapentin (Neurontin) 300 mg PO BID [facility] Last Admin: 05/06/20 09:16 Dose: 300 mg Documented by: Hydroxychloroquine Sulfate (Plaquenil) 200 mg PO DAILY [facility] Last Admin: 05/02/20 08:01 Dose: 200 mg Documented by: Meropenem 1 gm/ Sodium (Chloride) 50 mls @ 100 mls/hr IV Q12H [facility] Last Admin: 05/06/20 00:09 Dose: 100 mls/hr Documented by: Levofloxacin/Dextrose 750 mg/ (Premix) 150 mls @ 100 mls/hr IV Q48H [facility] Last Admin: 05/06/20 09:22 Dose: 100 mls/hr Documented by: Lorazepam (Ativan) 0.5 mg IVPUSH Q4H PRN PRN Reason: Nausea/Vomiting Last Admin: 05/04/20 21:30 Dose: 0.5 mg Documented by: Lorazepam (Ativan Oral Concentrate 1mg/0.5 Ml U/D) 0.5 mg PO Q2H PRN PRN Reason: Anxiety Last Admin: 05/05/20 14:16 Dose: 0.5 mg Documented by: Magnesium Hydroxide (Milk Of Magnesia) 30 ml PO Q12H PRN PRN Reason: Constipation Melatonin (Melatonin) 9 mg PO BEDTIME [facility] Last Admin: 05/05/20 20:28 Dose: 9 mg Documented by: Morphine Sulfate (Morphine 10 Mg/0.5 Ml Oral Syringe) 2.5 mg PO Q2H PRN PRN Reason: Dyspnea Last Admin: 05/05/20 14:15 Dose: 2.5 mg Documented by: Nystatin (Nystop) 0 gm TOP TID [facility] Last Admin: 05/06/20 09:17 Dose: 1 applic Documented by: Ondansetron HCl (Zofran) 4 mg IV Q6H PRN PRN Reason: Nausea/Vomiting Last Admin: 04/29/20 12:36 Dose: 4 mg Documented by: Ondansetron HCl (Zofran Odt) 4 mg PO Q6H PRN PRN Reason: Nausea able to take PO Ropinirole HCl (Requip) 1.5 mg PO BID [facility] Last Admin: 05/06/20 09:17 Dose: 1.5 mg Documented by: Senna/Docusate Sodium (Senna Plus) 1 tab PO BID PRN PRN Reason: Constipation Sodium Chloride (Saline Flush) 10 ml FLUSH ASDIRECTED PRN PRN Reason: Keep Vein Open Last Admin: 04/28/20 14:28 Dose: 10 ml Documented by: Sodium Chloride (Saline Flush) 10 ml FLUSH ASDIRECTED PRN PRN Reason: Keep Vein Open Discontinued Medications Bumetanide (Bumex) 1 mg IVPUSH ONETIME ONE Stop: 04/28/20 14:13 Last Admin: 04/28/20 14:23 Dose: 1 mg Documented by: Bumetanide (Bumex) 2 mg IVPUSH ONETIME ONE Stop: 04/29/20 07:01 Last Admin: 04/29/20 06:32 Dose: 2 mg Documented by: Bumetanide (Bumex) 2 mg IVPUSH ONETIME ONE Stop: 05/02/20 10:35 Last Admin: 05/02/20 11:43 Dose: 2 mg Documented by: Bumetanide (Bumex) 2 mg IVPUSH ONETIME ONE Stop: 05/03/20 13:01 Last Admin: 05/03/20 14:05 Dose: 2 mg Documented by: Bumetanide (Bumex) 2 mg IVPUSH BID [facility] Stop: 05/04/20 21:01 Last Admin: 05/04/20 20:02 Dose: 2 mg Documented by: Carvedilol (Coreg) 3.125 mg PO BID [facility] Last Admin: 04/28/20 20:53 Dose: 3.125 mg Documented by: Doxycycline Hyclate (Vibramycin) 100 mg PO BID [facility] Last Admin: 05/04/20 08:52 Dose: 100 mg Documented by: Gabapentin (Neurontin) 300 mg PO BID@0800,1200 [facility] Last Admin: 05/01/20 08:21 Dose: 300 mg Documented by: Gabapentin (Neurontin) 600 mg PO BEDTIME [facility] Last Admin: 04/30/20 21:28 Dose: 600 mg Documented by: Sodium Chloride (Normal Saline) 1,000 mls @ 125 mls/hr IV ASDIRECTED [facility] Stop: 04/29/20 17:31 Last Admin: 04/29/20 11:05 Dose: 125 mls/hr Documented by: Sodium Chloride (Normal Saline) 500 mls @ 125 mls/hr IV ASDIRECTED ONE Stop: 04/30/20 13:59 Last Admin: 04/30/20 10:31 Dose: 125 mls/hr Documented by: Sodium Chloride (Normal Saline) 500 mls @ 125 mls/hr IV ONETIME ONE Stop: 05/01/20 09:48 Last Admin: 05/01/20 06:06 Dose: 125 mls/hr Documented by: Albumin Human (Albumin 25%) 25 gm in 100 mls @ 25 mls/hr IV Q6H [facility] Stop: 05/04/20 08:59 Last Admin: 05/04/20 05:19 Dose: 25 mls/hr Documented by: Levofloxacin/Dextrose 750 mg/ (Premix) 150 mls @ 100 mls/hr IV Q24H [facility] Last Admin: 05/04/20 09:31 Dose: 100 mls/hr Documented by: Dextrose/Water (Dextrose 5% In Water) 1,000 mls @ 75 mls/hr IV ASDIRECTED [facility] Last Admin: 05/05/20 23:37 Dose: 75 mls/hr Documented by: Insulin Human Lispro (Humalog) 0 unit SUBCUT QIDACANDBED [facility]; Protocol Last Admin: 05/01/20 12:38 Dose: Not Given Documented by: Losartan Potassium (Cozaar) 50 mg PO DAILY [facility] Nitroglycerin (Nitrostat) 0.4 mg SL ONETIME ONE Stop: 04/28/20 14:15 Last Admin: 04/28/20 14:22 Dose: 0.4 mg Documented by: Pantoprazole Sodium (Protonix) 40 mg PO DAILY@0730 [facility] Last Admin: 05/01/20 08:21 Dose: 40 mg Documented by: Sodium Chloride (Saline Flush) 10 ml FLUSH ASDIRECTED PRN PRN Reason: Keep Vein Open Last Admin: 04/28/20 14:29 Dose: 10 ml Documented by: Sodium Polystyrene Sulfonate (Kayexalate) 30 gm PO ONETIME ONE Stop: 05/02/20 05:55 Last Admin: 05/02/20 07:08 Dose: 30 gm Documented by: Spironolactone (Aldactone) 25 mg PO DAILY [facility] Last Admin: 04/29/20 10:17 Dose: Not Given Documented by: - Exam Quality Assessment: Supplemental Oxygen, DVT Prophylaxis General: Alert, Oriented, Cooperative, Moderate Distress Lungs: Decreased Breath Sounds, Rales. No: Rhonchi, Wheezing Cardiovascular: Regular Rate, Regular Rhythm, No Murmurs GI/Abdominal Exam: Soft, Non-Tender, No Organomegaly, No Distention Extremities: Non-Tender, Pedal Edema Sepsis Event Note - Evaluation Sepsis Screening Result: No Definite Risk - Focused Exam Vital Signs: Vital Signs Temp Pulse Resp BP BP BP Pulse Ox 05/06/20 10:06 96.9 F 86 18 146/58 H 99 05/06/20 09:16 136/49 L 05/06/20 08:06 70 L 05/06/20 07:26 96.8 F L 87 20 136/49 L 92 L 05/06/20 07:08 96 05/06/20 03:00 98.7 F 66 20 133/71 98 05/06/20 01:00 99 - Problem List Review Problem List Initiated/Reviewed/Updated: Yes - My Orders Last 24 Hours: My Active Orders 05/06/20 08:21 Convert IV to Saline Lock [OM.PC] Routine 05/06/20 10:00 Levofloxacin/Dextrose 5%-Water [Levaquin in D5W 750 MG/150 ML] 750 mg Premix Bag 1 bag IV Q48H 05/06/20 12:06 Bumetanide [Bumex] 1 mg IVPUSH ONETIME ONE 05/07/20 05:00 BASIC METABOLIC PANEL,BMP [CHEM] Timed CBC WITH AUTO DIFF [HEME] Timed - Plan Plan:: ASSESSMENT AND PLAN - Acute on chronic heart failure with preserved ejection fraction-edema stable. -Bumetanide 1 mg IV today -Continue amlodipine 5 mg daily -Strict intake and output monitoring -Physical therapy Acute kidney injury-renal function is almost back to baseline -Hold gabapentin -PPI discontinued -Labs in the morning Persistent pulmonary infiltrates-patient has an increase in her sputum and a small increase in her supplemental oxygen requirement but no fevers. Procalcitonin level very mildly elevated and could suggest a lower respiratory tract infection. Some of current infiltrate is related to recent Covid infection with ARDS. -Blood cultures pending -Continue expanded antibiotic coverage with meropenem and levofloxacin -Supplemental oxygen as needed -Noninvasive positive pressure ventilation as tolerated Hypernatremia-sodium level improved over the last 24 hours -Saline lock IV -Recheck sodium level in a.m. Palliative care-she wants to continue current management but would also like to be treated for comfort. -Morphine and lorazepam as needed for comfort Hyperkalemia-resolved Severe oxygen dependent COPD-complicated by severe pulmonary hypertension and persistent bilateral pulmonary infiltrates related to recent Covid infection and ARDS. -Calcium channel beryl initiated as above -Scheduled and as needed nebulizers Type 2 diabetes mellitus-sugars improved after steroids were tapered. She is now off insulin and Accu-Cheks have been discontinued. Recent Covid infection-still a little weak but otherwise progressing well. Still has significant changes on her chest x-ray and CT scan of the chest. Rheumatoid arthritis-stable. -Hold hydroxychloroquine Chronic lower extremity venous stasis ulcers-these were present on admission. Currently being managed with pressure wrappings and dressing changes daily. Maintenance issues - - DVT prophylaxis -apixaban - GI prophylaxis -PPI discontinued as above - Nutrition -consistent carbohydrates Disposition -I would anticipate discharge with subacute rehab at [facility]. She needs additional medication management before she is ready for discharge and this will likely be early next week. Primary care physician -Dr. Es Stewart
[2020-05-06] MEDS ORDERED: Bumetanide 1 MG/4 ML MDV IVPUSH ONE (12:15)
[2020-05-06] MEDS: Morphine 10 MG/0.5 ML Oral Syringe PO PRN (15:19)
[2020-05-06] MEDS: Acetaminophen/HYDROcodone 325-5 MG Tab PO PRN (20:15)
[2020-05-06] MEDS: Melatonin 3 MG Tab PO SCH (20:21)
[2020-05-07] MEDS: Diclofenac Sodium 1% Gel 100 GM Tube TOP SCH ×4 (06:15→21:09)
[2020-05-07] MEDS: Albuterol/Ipratropium 3.0-0.5 MG/3 ML Neb Soln NEB SCH ×4 (06:58→21:09)
[2020-05-07] MEDS: rOPINIRole 0.5 MG Tab PO SCH ×2 (08:33→21:09)
[2020-05-07] MEDS: Gabapentin 300 MG Cap PO SCH ×2 (08:33→21:08)
[2020-05-07] MEDS: Apixaban 2.5 MG Tab PO SCH ×2 (08:33→21:08)
[2020-05-07] MEDS: Hydroxychloroquine 200 MG Tab PO SCH (08:33)
[2020-05-07] MEDS: amLODIPine 5 MG Tab PO SCH (08:34)
[2020-05-07] MEDS: Nystatin Topical Powder 15 GM Bottle TOP SCH ×3 (08:34→21:08)
[2020-05-07] MEDS ORDERED: Bumetanide 1 MG/4 ML MDV IVPUSH ONE (11:00)
[2020-05-07] MEDS: methylPREDNISolone Sodium Succinate 40 MG/1 ML SDV IVPUSH SCH ×2 (11:38→19:21)
--- NOTE | 2020-05-07 11:43 | PCM.PN ---
- General Info Date of Service: 05/07/20 Subjective Update: Ms. Obrien has been stable over the last 24 hours, continues to require higher level of supplemental oxygen. She subjectively reports less shortness of breath, improved appetite, and improved energy level. She has been receiving intermittent doses of morphine and is needed for comfort, with her dyspnea. Functional Status: Reports: Tolerating Diet - Review of Systems General: Reports: Weakness, Fatigue. Denies: Fever, Chills Pulmonary: Reports: Shortness of Breath, Cough, Wheezing. Denies: Pleuritic Chest Pain, Sputum, Hemoptysis Cardiovascular: Reports: Dyspnea on Exertion. Denies: Chest Pain, Palpitations, Orthopnea, PND, Edema, Lightheadedness Gastrointestinal: Reports: No Symptoms - Patient Data Vitals - Most Recent: Last Vital Signs Temp 96.4 F L 05/07/20 10:37 Pulse 87 05/07/20 10:37 Resp 18 05/07/20 10:37 BP 152/53 H 05/07/20 10:37 Pulse Ox 90 L 05/07/20 10:37 Weight - Most Recent: 179 lb 4.8 oz I&O - Last 24 Hours: Intake & Output 05/06/20 05/07/20 05/07/20 22:59 06:59 14:59 Intake Total 655 50 180 Output Total 325 200 200 Balance 330 -150 -20 Lab Results Last 24 Hours: Laboratory Results - last 24 hr 05/07/20 05/07/20 Range/Units 05:09 05:09 WBC 2.8 L (4.5-11.0) K/uL RBC 2.76 L (3.30-5.50) M/uL Hgb 7.6 L (12.0-15.0) g/dL Hct 26.9 L (36.0-48.0) % MCV 98 (80-98) fL MCH 28 (27-31) pg MCHC 28 L (32-36) % Plt Count 89 L (150-400) K/uL Neut % (Auto) 63 (36-66) % Lymph % (Auto) 24 (24-44) % [place] % (Auto) 7 H (2-6) % Eos % (Auto) 4 (2-4) % Baso % (Auto) 1 (0-1) % Sodium 147 (140-148) mmol/L Potassium 4.2 (3.6-5.2) mmol/L Chloride 109 H (100-108) mmol/L Carbon Dioxide 36 H (21-32) mmol/L Anion Gap 6.2 (5.0-14.0) mmol/L BUN 54 H (7-18) mg/dL Creatinine 1.2 H (0.6-1.0) mg/dL Est Cr Clr Drug Dosing 32.74 mL/min Estimated GFR (MDRD) 44 L (>60) Glucose 91 (74-106) mg/dL Calcium 8.6 (8.5-10.1) mg/dL [place]twon Results Last 24 Hours: Microbiology 05/04/20 09:30 Aerobic Blood Culture - Preliminary Blood - Venous - Lab Draw NO GROWTH AFTER 3 DAYS Anaerobic Blood Culture - Preliminary NO GROWTH AFTER 3 DAYS 05/04/20 09:10 Aerobic Blood Culture - Preliminary Blood - Arm, Right NO GROWTH AFTER 3 DAYS Anaerobic Blood Culture - Preliminary NO GROWTH AFTER 3 DAYS Med Orders - Current: Current Medications Acetaminophen (Tylenol) 650 mg PO Q4H PRN PRN Reason: Pain (Mild 1-3)/fever Hydrocodone Bitart/Acetaminophen ([place] 325-5 Mg) 1 tab PO Q4H PRN PRN Reason: Pain (moderate 4-6) Last Admin: 05/06/20 20:15 Dose: 1 tab Documented by: Albuterol (Proventil Neb Soln) 2.5 mg NEB Q4H PRN PRN Reason: Shortness Of Breath/wheezing Last Admin: 05/03/20 14:05 Dose: 2.5 mg Documented by: Albuterol/Ipratropium (Duoneb 3.0-0.5 Mg/3 Ml) 3 ml NEB QIDRT [facility] Last Admin: 05/07/20 10:51 Dose: 3 ml Documented by: Amlodipine Besylate (Norvasc) 5 mg PO DAILY [facility] Last Admin: 05/07/20 08:34 Dose: 5 mg Documented by: Apixaban (Eliquis) 2.5 mg PO BID [facility] Last Admin: 05/07/20 08:33 Dose: 2.5 mg Documented by: Artificial Tears (Genteal Mild To Moderate Ophth Soln) 0 ml EYEBOTH QID PRN PRN Reason: DRY EYES Diclofenac Sodium (Voltaren 1% Gel) 0 gm TOP QID [facility] Last Admin: 05/07/20 10:04 Dose: Not Given Documented by: Gabapentin (Neurontin) 300 mg PO BID [facility] Last Admin: 05/07/20 08:33 Dose: 300 mg Documented by: Hydroxychloroquine Sulfate (Plaquenil) 200 mg PO DAILY [facility] Last Admin: 05/07/20 08:33 Dose: 200 mg Documented by: Meropenem 1 gm/ Sodium (Chloride) 50 mls @ 100 mls/hr IV Q12H [facility] Last Admin: 05/07/20 00:14 Dose: 100 mls/hr Documented by: Levofloxacin/Dextrose 750 mg/ (Premix) 150 mls @ 100 mls/hr IV Q48H [facility] Last Admin: 05/06/20 09:22 Dose: 100 mls/hr Documented by: Lorazepam (Ativan) 0.5 mg IVPUSH Q4H PRN PRN Reason: Nausea/Vomiting Last Admin: 05/04/20 21:30 Dose: 0.5 mg Documented by: Lorazepam (Ativan Oral Concentrate 1mg/0.5 Ml U/D) 0.5 mg PO Q2H PRN PRN Reason: Anxiety Last Admin: 05/05/20 14:16 Dose: 0.5 mg Documented by: Magnesium Hydroxide (Milk Of Magnesia) 30 ml PO Q12H PRN PRN Reason: Constipation Melatonin (Melatonin) 9 mg PO BEDTIME [facility] Last Admin: 05/06/20 20:21 Dose: 9 mg Documented by: Methylprednisolone Sodium Succinate (Solu-Medrol) 40 mg IVPUSH Q8H [facility] Last Admin: 05/07/20 11:38 Dose: 40 mg Documented by: Morphine Sulfate (Morphine 10 Mg/0.5 Ml Oral Syringe) 2.5 mg PO Q2H PRN PRN Reason: Dyspnea Last Admin: 05/06/20 15:19 Dose: 2.5 mg Documented by: Nystatin (Nystop) 0 gm TOP TID [facility] Last Admin: 05/07/20 08:34 Dose: 1 applic Documented by: Ondansetron HCl (Zofran) 4 mg IV Q6H PRN PRN Reason: Nausea/Vomiting Last Admin: 04/29/20 12:36 Dose: 4 mg Documented by: Ondansetron HCl (Zofran Odt) 4 mg PO Q6H PRN PRN Reason: Nausea able to take PO Ropinirole HCl (Requip) 1.5 mg PO BID [facility] Last Admin: 05/07/20 08:33 Dose: 1.5 mg Documented by: Senna/Docusate Sodium (Senna Plus) 1 tab PO BID PRN PRN Reason: Constipation Sodium Chloride (Saline Flush) 10 ml FLUSH ASDIRECTED PRN PRN Reason: Keep Vein Open Last Admin: 04/28/20 14:28 Dose: 10 ml Documented by: Sodium Chloride (Saline Flush) 10 ml FLUSH ASDIRECTED PRN PRN Reason: Keep Vein Open Discontinued Medications Bumetanide (Bumex) 1 mg IVPUSH ONETIME ONE Stop: 04/28/20 14:13 Last Admin: 04/28/20 14:23 Dose: 1 mg Documented by: Bumetanide (Bumex) 2 mg IVPUSH ONETIME ONE Stop: 04/29/20 07:01 Last Admin: 04/29/20 06:32 Dose: 2 mg Documented by: Bumetanide (Bumex) 2 mg IVPUSH ONETIME ONE Stop: 05/02/20 10:35 Last Admin: 05/02/20 11:43 Dose: 2 mg Documented by: Bumetanide (Bumex) 2 mg IVPUSH ONETIME ONE Stop: 05/03/20 13:01 Last Admin: 05/03/20 14:05 Dose: 2 mg Documented by: Bumetanide (Bumex) 2 mg IVPUSH BID [facility] Stop: 05/04/20 21:01 Last Admin: 05/04/20 20:02 Dose: 2 mg Documented by: Bumetanide (Bumex) 1 mg IVPUSH ONETIME ONE Stop: 05/06/20 12:16 Last Admin: 05/06/20 12:17 Dose: 1 mg Documented by: Bumetanide (Bumex) 2 mg IVPUSH ONETIME ONE Stop: 05/07/20 11:01 Last Admin: 05/07/20 11:18 Dose: 2 mg Documented by: Carvedilol (Coreg) 3.125 mg PO BID [facility] Last Admin: 04/28/20 20:53 Dose: 3.125 mg Documented by: Doxycycline Hyclate (Vibramycin) 100 mg PO BID [facility] Last Admin: 05/04/20 08:52 Dose: 100 mg Documented by: Gabapentin (Neurontin) 300 mg PO BID@0800,1200 [facility] Last Admin: 05/01/20 08:21 Dose: 300 mg Documented by: Gabapentin (Neurontin) 600 mg PO BEDTIME [facility] Last Admin: 04/30/20 21:28 Dose: 600 mg Documented by: Sodium Chloride (Normal Saline) 1,000 mls @ 125 mls/hr IV ASDIRECTED [facility] Stop: 04/29/20 17:31 Last Admin: 04/29/20 11:05 Dose: 125 mls/hr Documented by: Sodium Chloride (Normal Saline) 500 mls @ 125 mls/hr IV ASDIRECTED ONE Stop: 04/30/20 13:59 Last Admin: 04/30/20 10:31 Dose: 125 mls/hr Documented by: Sodium Chloride (Normal Saline) 500 mls @ 125 mls/hr IV ONETIME ONE Stop: 05/01/20 09:48 Last Admin: 05/01/20 06:06 Dose: 125 mls/hr Documented by: Albumin Human (Albumin 25%) 25 gm in 100 mls @ 25 mls/hr IV Q6H [facility] Stop: 05/04/20 08:59 Last Admin: 05/04/20 05:19 Dose: 25 mls/hr Documented by: Levofloxacin/Dextrose 750 mg/ (Premix) 150 mls @ 100 mls/hr IV Q24H [facility] Last Admin: 05/04/20 09:31 Dose: 100 mls/hr Documented by: Dextrose/Water (Dextrose 5% In Water) 1,000 mls @ 75 mls/hr IV ASDIRECTED [facility] Last Admin: 05/05/20 23:37 Dose: 75 mls/hr Documented by: Insulin Human Lispro (Humalog) 0 unit SUBCUT QIDACANDBED [facility]; Protocol Last Admin: 05/01/20 12:38 Dose: Not Given Documented by: Losartan Potassium (Cozaar) 50 mg PO DAILY [facility] Nitroglycerin (Nitrostat) 0.4 mg SL ONETIME ONE Stop: 04/28/20 14:15 Last Admin: 04/28/20 14:22 Dose: 0.4 mg Documented by: Pantoprazole Sodium (Protonix) 40 mg PO DAILY@0730 [facility] Last Admin: 05/01/20 08:21 Dose: 40 mg Documented by: Sodium Chloride (Saline Flush) 10 ml FLUSH ASDIRECTED PRN PRN Reason: Keep Vein Open Last Admin: 04/28/20 14:29 Dose: 10 ml Documented by: Sodium Polystyrene Sulfonate (Kayexalate) 30 gm PO ONETIME ONE Stop: 05/02/20 05:55 Last Admin: 05/02/20 07:08 Dose: 30 gm Documented by: Spironolactone (Aldactone) 25 mg PO DAILY [facility] Last Admin: 04/29/20 10:17 Dose: Not Given Documented by: - Exam Quality Assessment: Supplemental Oxygen, Urine Catheter, DVT Prophylaxis General: Alert, Oriented, Cooperative, Moderate Distress Lungs: Decreased Breath Sounds, Rhonchi, Wheezing. No: Crackles, Rales Cardiovascular: Regular Rate, Regular Rhythm, No Murmurs GI/Abdominal Exam: Soft, Non-Tender, No Organomegaly, No Distention Extremities: Non-Tender, No Pedal Edema Sepsis Event Note - Evaluation Sepsis Screening Result: No Definite Risk - Focused Exam Vital Signs: Vital Signs Temp Pulse Resp BP BP Pulse Ox 05/07/20 10:37 96.4 F L 87 18 152/53 H 90 L 05/07/20 08:34 133/39 L 05/07/20 08:29 97.2 F 05/07/20 07:00 96 F L 78 18 133/39 L 96 05/07/20 06:59 58 L 05/07/20 02:57 97.1 F 64 18 95 05/07/20 01:00 94 L - Problem List Review Problem List Initiated/Reviewed/Updated: Yes - My Orders Last 24 Hours: My Active Orders 05/07/20 11:00 methylPREDNISolone Sod Succ [Solu-MEDROL] 40 mg IVPUSH Q8H 05/08/20 05:00 BASIC METABOLIC PANEL,BMP [CHEM] Timed CBC WITH AUTO DIFF [HEME] Timed - Plan Plan:: ASSESSMENT AND PLAN - Acute on chronic heart failure with preserved ejection fraction-edema stable. -Bumetanide 2 mg IV today -Continue amlodipine 5 mg daily -Strict intake and output monitoring -Physical therapy Acute kidney injury-renal function is almost back to baseline -Hold gabapentin -PPI discontinued -Labs in the morning Persistent pulmonary infiltrates-continued hypoxia and requiring high levels of supplemental oxygen -Blood cultures pending -Continue expanded antibiotic coverage with meropenem and levofloxacin -Supplemental oxygen as needed -Noninvasive positive pressure ventilation as tolerated Hypernatremia-resolved Palliative care-she wants to continue current management but would also like to be treated for comfort. -Morphine and lorazepam as needed for comfort Hyperkalemia-resolved Severe oxygen dependent COPD-complicated by severe pulmonary hypertension and persistent bilateral pulmonary infiltrates related to recent Covid infection and ARDS. -Calcium channel beryl initiated as above -Scheduled and as needed nebulizers -Solu-Medrol 40 mg IV every 8 hours Type 2 diabetes mellitus-sugars improved after steroids were tapered. She is now off insulin and Accu-Cheks have been discontinued. Recent Covid infection Rheumatoid arthritis-stable. -Hold hydroxychloroquine Chronic lower extremity venous stasis ulcers-these were present on admission. Currently being managed with pressure wrappings and dressing changes daily. Maintenance issues - - DVT prophylaxis -apixaban - GI prophylaxis -PPI discontinued as above - Nutrition -consistent carbohydrates Disposition -I would anticipate discharge with subacute rehab at [facility]. She needs additional medication management before she is ready for discharge and this will likely be early next week. Primary care physician -Dr. Es Stewart
[2020-05-07] MEDS: Morphine 10 MG/0.5 ML Oral Syringe PO PRN ×2 (16:10→21:23)
[2020-05-07] MEDS: Melatonin 3 MG Tab PO SCH (21:08)
[2020-05-07] MEDS: Acetaminophen/HYDROcodone 325-5 MG Tab PO PRN (23:49)
[2020-05-08] MEDS: methylPREDNISolone Sodium Succinate 40 MG/1 ML SDV IVPUSH SCH ×3 (03:12→18:25)
[2020-05-08] MEDS: Diclofenac Sodium 1% Gel 100 GM Tube TOP SCH ×4 (05:24→21:40)
[2020-05-08] MEDS: Acetaminophen/HYDROcodone 325-5 MG Tab PO PRN (05:59)
[2020-05-08] MEDS: Albuterol/Ipratropium 3.0-0.5 MG/3 ML Neb Soln NEB SCH ×4 (07:39→22:30)
[2020-05-08] MEDS: Nystatin Topical Powder 15 GM Bottle TOP SCH ×3 (08:00→21:38)
[2020-05-08] MEDS: Gabapentin 300 MG Cap PO SCH ×2 (08:00→21:38)
[2020-05-08] MEDS: rOPINIRole 0.5 MG Tab PO SCH ×2 (08:00→21:41)
[2020-05-08] MEDS: amLODIPine 5 MG Tab PO SCH (08:00)
[2020-05-08] MEDS: Hydroxychloroquine 200 MG Tab PO SCH (08:00)
[2020-05-08] MEDS: Apixaban 2.5 MG Tab PO SCH ×2 (08:00→21:37)
[2020-05-08] MEDS ORDERED: 50% Dextrose in Water 50 ML Syringe IV PRN (10:05)
[2020-05-08] MEDS ORDERED: Glucose Gel 15 GM in 37.5 GM Tube PO PRN (10:05)
--- NOTE | 2020-05-08 10:11 | PCM.PN ---
- General Info Date of Service: 05/08/20 Subjective Update: Ms. Obrien continues to require high level of supplemental oxygen to maintain adequate oxygenation. She desaturates with minimal exertion. She will use the BiPAP now intermittently but overall does not care for it. She is not ready to move to comfort cares only at this time, but does understand that thus far there have been no interventions that have provided any improvement. - Review of Systems General: Reports: Weakness, Fatigue. Denies: Fever, Chills Pulmonary: Reports: Shortness of Breath, Cough, Sputum, Wheezing. Denies: Pleuritic Chest Pain, Hemoptysis Cardiovascular: Reports: Dyspnea on Exertion. Denies: Chest Pain, Palpitations, Orthopnea, PND, Edema, Lightheadedness Gastrointestinal: Reports: No Symptoms - Patient Data Vitals - Most Recent: Last Vital Signs Temp 96 F L 05/08/20 07:42 Pulse 69 05/08/20 07:42 Resp 20 05/08/20 07:42 BP 152/57 H 05/08/20 08:00 Pulse Ox 100 05/08/20 07:42 Weight - Most Recent: 181 lb 1.6 oz I&O - Last 24 Hours: Intake & Output 05/07/20 05/08/20 05/08/20 22:59 06:59 14:59 Output Total 410 200 Balance -410 -200 Lab Results Last 24 Hours: Laboratory Results - last 24 hr 05/08/20 05/08/20 Range/Units 04:53 04:53 WBC 1.7 L (4.5-11.0) K/uL RBC 2.87 L (3.30-5.50) M/uL Hgb 7.8 L (12.0-15.0) g/dL Hct 27.4 L (36.0-48.0) % MCV 96 (80-98) fL MCH 27 (27-31) pg MCHC 29 L (32-36) % Plt Count 84 L (150-400) K/uL Neut % (Auto) 60 (36-66) % Lymph % (Auto) 38 (24-44) % Alexander % (Auto) 2 (2-6) % Eos % (Auto) 0 L (2-4) % Baso % (Auto) 1 (0-1) % Sodium 146 (140-148) mmol/L Potassium 4.6 (3.6-5.2) mmol/L Chloride 108 (100-108) mmol/L Carbon Dioxide 36 H (21-32) mmol/L Anion Gap 6.6 (5.0-14.0) mmol/L BUN 59 H (7-18) mg/dL Creatinine 1.3 H (0.6-1.0) mg/dL Est Cr Clr Drug Dosing 30.22 mL/min Estimated GFR (MDRD) 40 L (>60) Glucose 171 H (74-106) mg/dL Calcium 8.3 L (8.5-10.1) mg/dL Antwon Results Last 24 Hours: Microbiology 05/04/20 09:30 Aerobic Blood Culture - Preliminary Blood - Venous - Lab Draw NO GROWTH AFTER 4 DAYS Anaerobic Blood Culture - Preliminary NO GROWTH AFTER 4 DAYS 05/04/20 09:10 Aerobic Blood Culture - Preliminary Blood - Arm, Right NO GROWTH AFTER 4 DAYS Anaerobic Blood Culture - Preliminary NO GROWTH AFTER 4 DAYS Med Orders - Current: Current Medications Acetaminophen (Tylenol) 650 mg PO Q4H PRN PRN Reason: Pain (Mild 1-3)/fever Hydrocodone Bitart/Acetaminophen ([place] 325-5 Mg) 1 tab PO Q4H PRN PRN Reason: Pain (moderate 4-6) Last Admin: 05/08/20 05:59 Dose: 1 tab Documented by: Albuterol (Proventil Neb Soln) 2.5 mg NEB Q4H PRN PRN Reason: Shortness Of Breath/wheezing Last Admin: 05/03/20 14:05 Dose: 2.5 mg Documented by: Albuterol/Ipratropium (Duoneb 3.0-0.5 Mg/3 Ml) 3 ml NEB QIDRT [facility] Last Admin: 05/08/20 07:39 Dose: 3 ml Documented by: Amlodipine Besylate (Norvasc) 5 mg PO DAILY [facility] Last Admin: 05/08/20 08:00 Dose: 5 mg Documented by: Apixaban (Eliquis) 2.5 mg PO BID [facility] Last Admin: 05/08/20 08:00 Dose: 2.5 mg Documented by: Artificial Tears (Genteal Mild To Moderate Ophth Soln) 0 ml EYEBOTH QID PRN PRN Reason: DRY EYES Dextrose (Glutose 15) 15 gm PO ONETIME PRN PRN Reason: Hypoglycemia Dextrose/Water (Dextrose 50% In Water) 50 ml IV ONETIME PRN PRN Reason: Hypoglycemia Diclofenac Sodium (Voltaren 1% Gel) 0 gm TOP QID [facility] Last Admin: 05/08/20 05:24 Dose: Not Given Documented by: Gabapentin (Neurontin) 300 mg PO BID [facility] Last Admin: 05/08/20 08:00 Dose: 300 mg Documented by: Hydroxychloroquine Sulfate (Plaquenil) 200 mg PO DAILY [facility] Last Admin: 05/08/20 08:00 Dose: 200 mg Documented by: Meropenem 1 gm/ Sodium (Chloride) 50 mls @ 100 mls/hr IV Q12H [facility] Last Admin: 05/07/20 23:49 Dose: 100 mls/hr Documented by: Levofloxacin/Dextrose 750 mg/ (Premix) 150 mls @ 100 mls/hr IV Q48H [facility] Last Admin: 05/06/20 09:22 Dose: 100 mls/hr Documented by: Insulin Human Lispro (Humalog) 0 unit SUBCUT QIDACANDBED [facility]; Protocol Lorazepam (Ativan) 0.5 mg IVPUSH Q4H PRN PRN Reason: Nausea/Vomiting Last Admin: 05/04/20 21:30 Dose: 0.5 mg Documented by: Lorazepam (Ativan Oral Concentrate 1mg/0.5 Ml U/D) 0.5 mg PO Q2H PRN PRN Reason: Anxiety Last Admin: 05/05/20 14:16 Dose: 0.5 mg Documented by: Magnesium Hydroxide (Milk Of Magnesia) 30 ml PO Q12H PRN PRN Reason: Constipation Melatonin (Melatonin) 9 mg PO BEDTIME [facility] Last Admin: 05/07/20 21:08 Dose: 9 mg Documented by: Methylprednisolone Sodium Succinate (Solu-Medrol) 40 mg IVPUSH Q8H [facility] Last Admin: 05/08/20 03:12 Dose: 40 mg Documented by: Morphine Sulfate (Morphine 10 Mg/0.5 Ml Oral Syringe) 2.5 mg PO Q2H PRN PRN Reason: Dyspnea Last Admin: 05/07/20 21:23 Dose: 2.5 mg Documented by: Nystatin (Nystop) 0 gm TOP TID [facility] Last Admin: 05/08/20 08:00 Dose: 1 applic Documented by: Ondansetron HCl (Zofran) 4 mg IV Q6H PRN PRN Reason: Nausea/Vomiting Last Admin: 04/29/20 12:36 Dose: 4 mg Documented by: Ondansetron HCl (Zofran Odt) 4 mg PO Q6H PRN PRN Reason: Nausea able to take PO Ropinirole HCl (Requip) 1.5 mg PO BID [facility] Last Admin: 05/08/20 08:00 Dose: 1.5 mg Documented by: Senna/Docusate Sodium (Senna Plus) 1 tab PO BID PRN PRN Reason: Constipation Sodium Chloride (Saline Flush) 10 ml FLUSH ASDIRECTED PRN PRN Reason: Keep Vein Open Last Admin: 04/28/20 14:28 Dose: 10 ml Documented by: Discontinued Medications Bumetanide (Bumex) 1 mg IVPUSH ONETIME ONE Stop: 04/28/20 14:13 Last Admin: 04/28/20 14:23 Dose: 1 mg Documented by: Bumetanide (Bumex) 2 mg IVPUSH ONETIME ONE Stop: 04/29/20 07:01 Last Admin: 04/29/20 06:32 Dose: 2 mg Documented by: Bumetanide (Bumex) 2 mg IVPUSH ONETIME ONE Stop: 05/02/20 10:35 Last Admin: 05/02/20 11:43 Dose: 2 mg Documented by: Bumetanide (Bumex) 2 mg IVPUSH ONETIME ONE Stop: 05/03/20 13:01 Last Admin: 05/03/20 14:05 Dose: 2 mg Documented by: Bumetanide (Bumex) 2 mg IVPUSH BID [facility] Stop: 05/04/20 21:01 Last Admin: 05/04/20 20:02 Dose: 2 mg Documented by: Bumetanide (Bumex) 1 mg IVPUSH ONETIME ONE Stop: 05/06/20 12:16 Last Admin: 05/06/20 12:17 Dose: 1 mg Documented by: Bumetanide (Bumex) 2 mg IVPUSH ONETIME ONE Stop: 05/07/20 11:01 Last Admin: 05/07/20 11:18 Dose: 2 mg Documented by: Carvedilol (Coreg) 3.125 mg PO BID [facility] Last Admin: 04/28/20 20:53 Dose: 3.125 mg Documented by: Doxycycline Hyclate (Vibramycin) 100 mg PO BID [facility] Last Admin: 05/04/20 08:52 Dose: 100 mg Documented by: Gabapentin (Neurontin) 300 mg PO BID@0800,1200 [facility] Last Admin: 05/01/20 08:21 Dose: 300 mg Documented by: Gabapentin (Neurontin) 600 mg PO BEDTIME [facility] Last Admin: 04/30/20 21:28 Dose: 600 mg Documented by: Sodium Chloride (Normal Saline) 1,000 mls @ 125 mls/hr IV ASDIRECTED [facility] Stop: 04/29/20 17:31 Last Admin: 04/29/20 11:05 Dose: 125 mls/hr Documented by: Sodium Chloride (Normal Saline) 500 mls @ 125 mls/hr IV ASDIRECTED ONE Stop: 04/30/20 13:59 Last Admin: 04/30/20 10:31 Dose: 125 mls/hr Documented by: Sodium Chloride (Normal Saline) 500 mls @ 125 mls/hr IV ONETIME ONE Stop: 05/01/20 09:48 Last Admin: 05/01/20 06:06 Dose: 125 mls/hr Documented by: Albumin Human (Albumin 25%) 25 gm in 100 mls @ 25 mls/hr IV Q6H [facility] Stop: 05/04/20 08:59 Last Admin: 05/04/20 05:19 Dose: 25 mls/hr Documented by: Levofloxacin/Dextrose 750 mg/ (Premix) 150 mls @ 100 mls/hr IV Q24H [facility] Last Admin: 05/04/20 09:31 Dose: 100 mls/hr Documented by: Dextrose/Water (Dextrose 5% In Water) 1,000 mls @ 75 mls/hr IV ASDIRECTED [facility] Last Admin: 05/05/20 23:37 Dose: 75 mls/hr Documented by: Insulin Human Lispro (Humalog) 0 unit SUBCUT QIDACANDBED [facility]; Protocol Last Admin: 05/01/20 12:38 Dose: Not Given Documented by: Losartan Potassium (Cozaar) 50 mg PO DAILY [facility] Nitroglycerin (Nitrostat) 0.4 mg SL ONETIME ONE Stop: 04/28/20 14:15 Last Admin: 04/28/20 14:22 Dose: 0.4 mg Documented by: Pantoprazole Sodium (Protonix) 40 mg PO DAILY@0730 [facility] Last Admin: 05/01/20 08:21 Dose: 40 mg Documented by: Sodium Chloride (Saline Flush) 10 ml FLUSH ASDIRECTED PRN PRN Reason: Keep Vein Open Last Admin: 04/28/20 14:29 Dose: 10 ml Documented by: Sodium Polystyrene Sulfonate (Kayexalate) 30 gm PO ONETIME ONE Stop: 05/02/20 05:55 Last Admin: 05/02/20 07:08 Dose: 30 gm Documented by: Spironolactone (Aldactone) 25 mg PO DAILY [facility] Last Admin: 04/29/20 10:17 Dose: Not Given Documented by: - Exam Quality Assessment: Supplemental Oxygen, Urine Catheter, DVT Prophylaxis General: Alert, Oriented, Cooperative, Moderate Distress Lungs: Decreased Breath Sounds, Rales, Rhonchi, Wheezing. No: Crackles, Rub Cardiovascular: Regular Rate, Regular Rhythm, No Murmurs GI/Abdominal Exam: Soft, Non-Tender, No Organomegaly, No Distention Extremities: Non-Tender, No Pedal Edema - Patient Data Lab Results Last 24 hrs: Laboratory Results - last 24 hr 05/08/20 05/08/20 Range/Units 04:53 04:53 WBC 1.7 L (4.5-11.0) K/uL RBC 2.87 L (3.30-5.50) M/uL Hgb 7.8 L (12.0-15.0) g/dL Hct 27.4 L (36.0-48.0) % MCV 96 (80-98) fL MCH 27 (27-31) pg MCHC 29 L (32-36) % Plt Count 84 L (150-400) K/uL Neut % (Auto) 60 (36-66) % Lymph % (Auto) 38 (24-44) % Alexander % (Auto) 2 (2-6) % Eos % (Auto) 0 L (2-4) % Baso % (Auto) 1 (0-1) % Sodium 146 (140-148) mmol/L Potassium 4.6 (3.6-5.2) mmol/L Chloride 108 (100-108) mmol/L Carbon Dioxide 36 H (21-32) mmol/L Anion Gap 6.6 (5.0-14.0) mmol/L BUN 59 H (7-18) mg/dL Creatinine 1.3 H (0.6-1.0) mg/dL Est Cr Clr Drug Dosing 30.22 mL/min Estimated GFR (MDRD) 40 L (>60) Glucose 171 H (74-106) mg/dL Calcium 8.3 L (8.5-10.1) mg/dL Result Diagrams: 05/08/20 04:53 05/08/20 04:53 Antwon Results Last 24 hrs: Microbiology 05/04/20 09:30 Aerobic Blood Culture - Preliminary Blood - Venous - Lab Draw NO GROWTH AFTER 4 DAYS Anaerobic Blood Culture - Preliminary NO GROWTH AFTER 4 DAYS 05/04/20 09:10 Aerobic Blood Culture - Preliminary Blood - Arm, Right NO GROWTH AFTER 4 DAYS Anaerobic Blood Culture - Preliminary NO GROWTH AFTER 4 DAYS Sepsis Event Note - Evaluation Sepsis Screening Result: No Definite Risk - Focused Exam Vital Signs: Vital Signs Temp Pulse Resp BP BP BP Pulse Ox 05/08/20 08:00 152/57 H 05/08/20 07:42 96 F L 69 20 152/57 H 100 05/08/20 07:29 95 05/08/20 03:17 97.5 F 70 18 158/53 H 95 05/08/20 01:08 99 05/07/20 23:00 96.8 F L 68 18 95 - Problem List Review Problem List Initiated/Reviewed/Updated: Yes - My Orders Last 24 Hours: My Active Orders 05/07/20 11:00 methylPREDNISolone Sod Succ [Solu-MEDROL] 40 mg IVPUSH Q8H 05/08/20 10:05 Dextrose 50% in Water 50 ml IV ONETIME PRN Dextrose [Glutose 15] 15 gm PO ONETIME PRN 05/08/20 10:06 Communication Order [RC] STAT Diabetes Education [RC] Click to Edit Notify Provider [RC] PRN 05/08/20 10:07 Bumetanide [Bumex] 1 mg IVPUSH ONETIME ONE 05/08/20 11:00 Insulin Lispro [HumaLOG] See Protocol SUBCUT QIDACANDBED 05/08/20 11:30 GLUCOSE POC LAB TO COLLECT JPM [POC] QIDACANDBED 05/08/20 16:30 GLUCOSE POC LAB TO COLLECT JPM [POC] QIDACANDBED 05/08/20 21:00 GLUCOSE POC LAB TO COLLECT JPM [POC] QIDACANDBED 05/09/20 05:00 BASIC METABOLIC PANEL,BMP [CHEM] Timed CBC WITH AUTO DIFF [HEME] Timed MAGNESIUM [CHEM] Timed 05/09/20 07:30 GLUCOSE POC LAB TO COLLECT JPM [POC] QIDACANDBED 05/09/20 11:30 GLUCOSE POC LAB TO COLLECT JPM [POC] QIDACANDBED 05/09/20 16:30 GLUCOSE POC LAB TO COLLECT JPM [POC] QIDACANDBED 05/09/20 21:00 GLUCOSE POC LAB TO COLLECT JPM [POC] QIDACANDBED 05/10/20 07:30 GLUCOSE POC LAB TO COLLECT JPM [POC] QIDACANDBED 05/10/20 11:30 GLUCOSE POC LAB TO COLLECT JPM [POC] QIDACANDBED 05/10/20 16:30 GLUCOSE POC LAB TO COLLECT JPM [POC] QIDACANDBED 05/10/20 21:00 GLUCOSE POC LAB TO COLLECT JPM [POC] QIDACANDBED 05/11/20 07:30 GLUCOSE POC LAB TO COLLECT JPM [POC] QIDACANDBED 05/11/20 11:30 GLUCOSE POC LAB TO COLLECT JPM [POC] QIDACANDBED 05/11/20 16:30 GLUCOSE POC LAB TO COLLECT JPM [POC] QIDACANDBED 05/11/20 21:00 GLUCOSE POC LAB TO COLLECT JPM [POC] QIDACANDBED 05/12/20 07:30 GLUCOSE POC LAB TO COLLECT JPM [POC] QIDACANDBED 05/12/20 11:30 GLUCOSE POC LAB TO COLLECT JPM [POC] QIDACANDBED 05/12/20 16:30 GLUCOSE POC LAB TO COLLECT JPM [POC] QIDACANDBED 05/12/20 21:00 GLUCOSE POC LAB TO COLLECT JPM [POC] QIDACANDBED 05/13/20 07:30 GLUCOSE POC LAB TO COLLECT JPM [POC] QIDACANDBED - Plan Plan:: ASSESSMENT AND PLAN - Acute on chronic heart failure with preserved ejection fraction-edema stable. -Bumetanide 1 mg IV today -Continue amlodipine 5 mg daily -Strict intake and output monitoring -Physical therapy Acute kidney injury-renal function is back to baseline -Hold gabapentin -PPI discontinued -Labs in the morning Persistent pulmonary infiltrates-continued hypoxia and requiring high levels of supplemental oxygen -Blood cultures pending -Continue expanded antibiotic coverage with meropenem and levofloxacin -Supplemental oxygen as needed -Noninvasive positive pressure ventilation as tolerated Hypernatremia-resolved Palliative care-she wants to continue current management but would also like to be treated for comfort. -Morphine and lorazepam as needed for comfort Hyperkalemia-resolved Severe oxygen dependent COPD-complicated by severe pulmonary hypertension and persistent bilateral pulmonary infiltrates related to recent Covid infection and ARDS. -Calcium channel beryl initiated as above -Scheduled and as needed nebulizers -Solu-Medrol 40 mg IV every 8 hours Type 2 diabetes mellitus-sugars improved after steroids were tapered. She is now off insulin and Accu-Cheks have been discontinued. Recent Covid infection Rheumatoid arthritis-stable. -Hold hydroxychloroquine Chronic lower extremity venous stasis ulcers-these were present on admission. Currently being managed with pressure wrappings and dressing changes daily. Maintenance issues - - DVT prophylaxis -apixaban - GI prophylaxis -PPI discontinued as above - Nutrition -consistent carbohydrates Disposition -I would anticipate discharge with subacute rehab at [facility]. She needs additional medication management before she is ready for discharge and this will likely be early next week. Primary care physician -Dr. Es Stewart
[2020-05-08] MEDS ORDERED: Bumetanide 1 MG/4 ML MDV IVPUSH ONE (10:30)
[2020-05-08] MEDS: Insulin Lispro 100 Unit/ML 3 ML KwikPen SUBCUT SCH ×3 (11:19→21:37)
[2020-05-08] MEDS: Levofloxacin/Dextrose 5%-Water 750 MG in Premix Bag 1 BAG IV SCH (11:39)
[2020-05-08] MEDS: Doxycycline 100 MG in Sodium Chloride 0.9% 100 ML IV SCH (12:30)
[2020-05-08] MEDS: Cefepime 2 GM in Sodium Chloride 0.9% 50 ML IV SCH (13:49)
[2020-05-08] MEDS: Morphine 10 MG/0.5 ML Oral Syringe PO PRN (17:37)
[2020-05-08] MEDS: Melatonin 3 MG Tab PO SCH (21:37)
[2020-05-09] MEDS: Doxycycline 100 MG in Sodium Chloride 0.9% 100 ML IV SCH ×2 (00:29→12:20)
[2020-05-09] MEDS: methylPREDNISolone Sodium Succinate 40 MG/1 ML SDV IVPUSH SCH ×3 (02:44→18:01)
[2020-05-09] MEDS: Diclofenac Sodium 1% Gel 100 GM Tube TOP SCH ×4 (05:01→22:30)
[2020-05-09] MEDS: Albuterol/Ipratropium 3.0-0.5 MG/3 ML Neb Soln NEB SCH ×4 (07:02→20:32)
--- NOTE | 2020-05-09 09:30 | PCM.PN ---
- General Info Date of Service: 05/09/20 Subjective Update: Ms. Obrien has been fairly stable since yesterday, no significant improvement or decline in respiratory status. She remains very compromised and continues to require high level of supplemental oxygen or use of noninvasive positive pressure ventilation. Functional Status: Reports: Tolerating Diet, Urinating - Review of Systems General: Reports: Weakness, Fatigue. Denies: Fever, Chills Pulmonary: Reports: Shortness of Breath, Cough, Wheezing. Denies: Pleuritic Chest Pain, Sputum, Hemoptysis Cardiovascular: Reports: Dyspnea on Exertion. Denies: Chest Pain, Palpitations, Orthopnea, PND, Edema, Lightheadedness Gastrointestinal: Reports: No Symptoms - Patient Data Vitals - Most Recent: Last Vital Signs Temp 95.8 F L 05/09/20 07:00 Pulse 68 05/09/20 07:02 Resp 17 05/09/20 07:00 BP 164/50 H 05/09/20 07:00 Pulse Ox 92 L 05/09/20 07:40 Weight - Most Recent: 183 lb 1.6 oz I&O - Last 24 Hours: Intake & Output 05/08/20 05/09/20 05/09/20 22:59 06:59 14:59 Intake Total 300 100 Output Total 500 Balance 300 -400 Lab Results Last 24 Hours: Laboratory Results - last 24 hr 05/08/20 05/08/20 05/08/20 Range/Units 11:30 16:32 21:01 WBC (4.5-11.0) K/uL RBC (3.30-5.50) M/uL Hgb (12.0-15.0) g/dL Hct (36.0-48.0) % MCV (80-98) fL MCH (27-31) pg MCHC (32-36) % Plt Count (150-400) K/uL Neut % (Auto) (36-66) % Lymph % (Auto) (24-44) % Loving % (Auto) (2-6) % Eos % (Auto) (2-4) % Baso % (Auto) (0-1) % Sodium (140-148) mmol/L Potassium (3.6-5.2) mmol/L Chloride (100-108) mmol/L Carbon Dioxide (21-32) mmol/L Anion Gap (5.0-14.0) mmol/L BUN (7-18) mg/dL Creatinine (0.6-1.0) mg/dL Est Cr Clr Drug Dosing mL/min Estimated GFR (MDRD) (>60) Glucose (74-106) mg/dL POC Glucose 219 H 235 H 222 H (74-106) MG/DL Calcium (8.5-10.1) mg/dL Magnesium (1.8-2.4) mg/dL 05/09/20 05/09/20 05/09/20 Range/Units 05:40 05:40 07:30 WBC 3.0 L (4.5-11.0) K/uL RBC 2.84 L (3.30-5.50) M/uL Hgb 7.6 L (12.0-15.0) g/dL Hct 26.9 L (36.0-48.0) % MCV 95 (80-98) fL MCH 27 (27-31) pg MCHC 28 L (32-36) % Plt Count 90 L (150-400) K/uL Neut % (Auto) 81 H (36-66) % Lymph % (Auto) 15 L (24-44) % Loving % (Auto) 4 (2-6) % Eos % (Auto) 0 L (2-4) % Baso % (Auto) 0 (0-1) % Sodium 146 (140-148) mmol/L Potassium 4.8 (3.6-5.2) mmol/L Chloride 109 H (100-108) mmol/L Carbon Dioxide 34 H (21-32) mmol/L Anion Gap 7.8 (5.0-14.0) mmol/L BUN 73 H (7-18) mg/dL Creatinine 1.3 H (0.6-1.0) mg/dL Est Cr Clr Drug Dosing 30.22 mL/min Estimated GFR (MDRD) 40 L (>60) Glucose 189 H (74-106) mg/dL POC Glucose 195 H (74-106) MG/DL Calcium 8.1 L (8.5-10.1) mg/dL Magnesium 1.6 L (1.8-2.4) mg/dL Antwon Results Last 24 Hours: Microbiology 05/04/20 09:30 Aerobic Blood Culture - Preliminary Blood - Venous - Lab Draw NO GROWTH AFTER 4 DAYS Anaerobic Blood Culture - Preliminary NO GROWTH AFTER 4 DAYS 05/04/20 09:10 Aerobic Blood Culture - Preliminary Blood - Arm, Right NO GROWTH AFTER 4 DAYS Anaerobic Blood Culture - Preliminary NO GROWTH AFTER 4 DAYS Med Orders - Current: Current Medications Acetaminophen (Tylenol) 650 mg PO Q4H PRN PRN Reason: Pain (Mild 1-3)/fever Hydrocodone Bitart/Acetaminophen ([place] 325-5 Mg) 1 tab PO Q4H PRN PRN Reason: Pain (moderate 4-6) Last Admin: 05/08/20 05:59 Dose: 1 tab Documented by: Albuterol (Proventil Neb Soln) 2.5 mg NEB Q4H PRN PRN Reason: Shortness Of Breath/wheezing Last Admin: 05/03/20 14:05 Dose: 2.5 mg Documented by: Albuterol/Ipratropium (Duoneb 3.0-0.5 Mg/3 Ml) 3 ml NEB QIDRT [facility] Last Admin: 05/09/20 07:02 Dose: 3 ml Documented by: Amlodipine Besylate (Norvasc) 5 mg PO DAILY [facility] Last Admin: 05/08/20 08:00 Dose: 5 mg Documented by: Apixaban (Eliquis) 2.5 mg PO BID [facility] Last Admin: 05/08/20 21:37 Dose: 2.5 mg Documented by: Artificial Tears (Genteal Mild To Moderate Ophth Soln) 0 ml EYEBOTH QID PRN PRN Reason: DRY EYES Bumetanide (Bumex) 2 mg IVPUSH ONETIME ONE Stop: 05/09/20 09:26 Dextrose (Glutose 15) 15 gm PO ONETIME PRN PRN Reason: Hypoglycemia Dextrose/Water (Dextrose 50% In Water) 50 ml IV ONETIME PRN PRN Reason: Hypoglycemia Diclofenac Sodium (Voltaren 1% Gel) 0 gm TOP QID [facility] Last Admin: 05/09/20 05:01 Dose: Not Given Documented by: Gabapentin (Neurontin) 300 mg PO BID [facility] Last Admin: 05/08/20 21:38 Dose: 300 mg Documented by: Hydroxychloroquine Sulfate (Plaquenil) 200 mg PO DAILY [facility] Last Admin: 05/08/20 08:00 Dose: 200 mg Documented by: Doxycycline Hyclate 100 mg/ (Sodium Chloride) 100 mls @ 100 mls/hr IV Q12H [facility] Last Admin: 05/09/20 00:29 Dose: 100 mls/hr Documented by: Cefepime HCl 2 gm/ Sodium (Chloride) 50 mls @ 100 mls/hr IV Q24H [facility] Last Admin: 05/08/20 13:49 Dose: 100 mls/hr Documented by: Magnesium Sulfate (Magnesium Sulfate In Water 2 Gm/50 Ml) 2 gm in 50 mls @ 25 mls/hr IV Q6H [facility] Stop: 05/09/20 16:59 Insulin Human Lispro (Humalog) 0 unit SUBCUT QIDACANDBED [facility]; Protocol Last Admin: 05/08/20 21:37 Dose: 2 units Documented by: Lorazepam (Ativan) 0.5 mg IVPUSH Q4H PRN PRN Reason: Nausea/Vomiting Last Admin: 05/04/20 21:30 Dose: 0.5 mg Documented by: Lorazepam (Ativan Oral Concentrate 1mg/0.5 Ml U/D) 0.5 mg PO Q2H PRN PRN Reason: Anxiety Last Admin: 05/05/20 14:16 Dose: 0.5 mg Documented by: Magnesium Hydroxide (Milk Of Magnesia) 30 ml PO Q12H PRN PRN Reason: Constipation Magnesium Oxide (Magnesium Oxide) 400 mg PO BID [facility] Melatonin (Melatonin) 9 mg PO BEDTIME [facility] Last Admin: 05/08/20 21:37 Dose: 9 mg Documented by: Methylprednisolone Sodium Succinate (Solu-Medrol) 40 mg IVPUSH Q8H [facility] Last Admin: 05/09/20 02:44 Dose: 40 mg Documented by: Morphine Sulfate (Morphine 10 Mg/0.5 Ml Oral Syringe) 2.5 mg PO Q2H PRN PRN Reason: Dyspnea Last Admin: 05/08/20 17:37 Dose: 2.5 mg Documented by: Nystatin (Nystop) 0 gm TOP TID [facility] Last Admin: 05/08/20 21:38 Dose: 1 applic Documented by: Ondansetron HCl (Zofran) 4 mg IV Q6H PRN PRN Reason: Nausea/Vomiting Last Admin: 04/29/20 12:36 Dose: 4 mg Documented by: Ondansetron HCl (Zofran Odt) 4 mg PO Q6H PRN PRN Reason: Nausea able to take PO Ropinirole HCl (Requip) 1.5 mg PO BID [facility] Last Admin: 05/08/20 21:41 Dose: 1.5 mg Documented by: Senna/Docusate Sodium (Senna Plus) 1 tab PO BID PRN PRN Reason: Constipation Sodium Chloride (Saline Flush) 10 ml FLUSH ASDIRECTED PRN PRN Reason: Keep Vein Open Last Admin: 04/28/20 14:28 Dose: 10 ml Documented by: Discontinued Medications Bumetanide (Bumex) 1 mg IVPUSH ONETIME ONE Stop: 04/28/20 14:13 Last Admin: 04/28/20 14:23 Dose: 1 mg Documented by: Bumetanide (Bumex) 2 mg IVPUSH ONETIME ONE Stop: 04/29/20 07:01 Last Admin: 04/29/20 06:32 Dose: 2 mg Documented by: Bumetanide (Bumex) 2 mg IVPUSH ONETIME ONE Stop: 05/02/20 10:35 Last Admin: 05/02/20 11:43 Dose: 2 mg Documented by: Bumetanide (Bumex) 2 mg IVPUSH ONETIME ONE Stop: 05/03/20 13:01 Last Admin: 05/03/20 14:05 Dose: 2 mg Documented by: Bumetanide (Bumex) 2 mg IVPUSH BID [facility] Stop: 05/04/20 21:01 Last Admin: 05/04/20 20:02 Dose: 2 mg Documented by: Bumetanide (Bumex) 1 mg IVPUSH ONETIME ONE Stop: 05/06/20 12:16 Last Admin: 05/06/20 12:17 Dose: 1 mg Documented by: Bumetanide (Bumex) 2 mg IVPUSH ONETIME ONE Stop: 05/07/20 11:01 Last Admin: 05/07/20 11:18 Dose: 2 mg Documented by: Bumetanide (Bumex) 1 mg IVPUSH ONETIME ONE Stop: 05/08/20 10:31 Last Admin: 05/08/20 11:15 Dose: 1 mg Documented by: Carvedilol (Coreg) 3.125 mg PO BID [facility] Last Admin: 04/28/20 20:53 Dose: 3.125 mg Documented by: Doxycycline Hyclate (Vibramycin) 100 mg PO BID [facility] Last Admin: 05/04/20 08:52 Dose: 100 mg Documented by: Gabapentin (Neurontin) 300 mg PO BID@0800,1200 [facility] Last Admin: 05/01/20 08:21 Dose: 300 mg Documented by: Gabapentin (Neurontin) 600 mg PO BEDTIME [facility] Last Admin: 04/30/20 21:28 Dose: 600 mg Documented by: Sodium Chloride (Normal Saline) 1,000 mls @ 125 mls/hr IV ASDIRECTED [facility] Stop: 04/29/20 17:31 Last Admin: 04/29/20 11:05 Dose: 125 mls/hr Documented by: Sodium Chloride (Normal Saline) 500 mls @ 125 mls/hr IV ASDIRECTED ONE Stop: 04/30/20 13:59 Last Admin: 04/30/20 10:31 Dose: 125 mls/hr Documented by: Sodium Chloride (Normal Saline) 500 mls @ 125 mls/hr IV ONETIME ONE Stop: 05/01/20 09:48 Last Admin: 05/01/20 06:06 Dose: 125 mls/hr Documented by: Albumin Human (Albumin 25%) 25 gm in 100 mls @ 25 mls/hr IV Q6H [facility] Stop: 05/04/20 08:59 Last Admin: 05/04/20 05:19 Dose: 25 mls/hr Documented by: Meropenem 1 gm/ Sodium (Chloride) 50 mls @ 100 mls/hr IV Q12H [facility] Last Admin: 05/07/20 23:49 Dose: 100 mls/hr Documented by: Levofloxacin/Dextrose 750 mg/ (Premix) 150 mls @ 100 mls/hr IV Q24H [facility] Last Admin: 05/04/20 09:31 Dose: 100 mls/hr Documented by: Dextrose/Water (Dextrose 5% In Water) 1,000 mls @ 75 mls/hr IV ASDIRECTED [facility] Last Admin: 05/05/20 23:37 Dose: 75 mls/hr Documented by: Levofloxacin/Dextrose 750 mg/ (Premix) 150 mls @ 100 mls/hr IV Q48H [facility] Last Admin: 05/08/20 11:39 Dose: Not Given Documented by: Insulin Human Lispro (Humalog) 0 unit SUBCUT QIDACANDBED [facility]; Protocol Last Admin: 05/01/20 12:38 Dose: Not Given Documented by: Losartan Potassium (Cozaar) 50 mg PO DAILY [facility] Nitroglycerin (Nitrostat) 0.4 mg SL ONETIME ONE Stop: 04/28/20 14:15 Last Admin: 04/28/20 14:22 Dose: 0.4 mg Documented by: Pantoprazole Sodium (Protonix) 40 mg PO DAILY@0730 [facility] Last Admin: 05/01/20 08:21 Dose: 40 mg Documented by: Sodium Chloride (Saline Flush) 10 ml FLUSH ASDIRECTED PRN PRN Reason: Keep Vein Open Last Admin: 04/28/20 14:29 Dose: 10 ml Documented by: Sodium Polystyrene Sulfonate (Kayexalate) 30 gm PO ONETIME ONE Stop: 05/02/20 05:55 Last Admin: 05/02/20 07:08 Dose: 30 gm Documented by: Spironolactone (Aldactone) 25 mg PO DAILY [facility] Last Admin: 04/29/20 10:17 Dose: Not Given Documented by: - Exam Quality Assessment: Supplemental Oxygen, Urine Catheter, DVT Prophylaxis General: Alert, Oriented, Cooperative, Moderate Distress Lungs: Decreased Breath Sounds, Rhonchi, Wheezing. No: Crackles, Rales Cardiovascular: Regular Rate, Regular Rhythm, No Murmurs GI/Abdominal Exam: Soft, Non-Tender, No Organomegaly, No Distention Extremities: Non-Tender, Pedal Edema - Patient Data Lab Results Last 24 hrs: Laboratory Results - last 24 hr 05/08/20 05/08/20 05/08/20 Range/Units 11:30 16:32 21:01 WBC (4.5-11.0) K/uL RBC (3.30-5.50) M/uL Hgb (12.0-15.0) g/dL Hct (36.0-48.0) % MCV (80-98) fL MCH (27-31) pg MCHC (32-36) % Plt Count (150-400) K/uL Neut % (Auto) (36-66) % Lymph % (Auto) (24-44) % Loving % (Auto) (2-6) % Eos % (Auto) (2-4) % Baso % (Auto) (0-1) % Sodium (140-148) mmol/L Potassium (3.6-5.2) mmol/L Chloride (100-108) mmol/L Carbon Dioxide (21-32) mmol/L Anion Gap (5.0-14.0) mmol/L BUN (7-18) mg/dL Creatinine (0.6-1.0) mg/dL Est Cr Clr Drug Dosing mL/min Estimated GFR (MDRD) (>60) Glucose (74-106) mg/dL POC Glucose 219 H 235 H 222 H (74-106) MG/DL Calcium (8.5-10.1) mg/dL Magnesium (1.8-2.4) mg/dL 05/09/20 05/09/20 05/09/20 Range/Units 05:40 05:40 07:30 WBC 3.0 L (4.5-11.0) K/uL RBC 2.84 L (3.30-5.50) M/uL Hgb 7.6 L (12.0-15.0) g/dL Hct 26.9 L (36.0-48.0) % MCV 95 (80-98) fL MCH 27 (27-31) pg MCHC 28 L (32-36) % Plt Count 90 L (150-400) K/uL Neut % (Auto) 81 H (36-66) % Lymph % (Auto) 15 L (24-44) % Loving % (Auto) 4 (2-6) % Eos % (Auto) 0 L (2-4) % Baso % (Auto) 0 (0-1) % Sodium 146 (140-148) mmol/L Potassium 4.8 (3.6-5.2) mmol/L Chloride 109 H (100-108) mmol/L Carbon Dioxide 34 H (21-32) mmol/L Anion Gap 7.8 (5.0-14.0) mmol/L BUN 73 H (7-18) mg/dL Creatinine 1.3 H (0.6-1.0) mg/dL Est Cr Clr Drug Dosing 30.22 mL/min Estimated GFR (MDRD) 40 L (>60) Glucose 189 H (74-106) mg/dL POC Glucose 195 H (74-106) MG/DL Calcium 8.1 L (8.5-10.1) mg/dL Magnesium 1.6 L (1.8-2.4) mg/dL Result Diagrams: 02/20/21 05:40 05/09/20 05:40 Antwon Results Last 24 hrs: Microbiology 05/04/20 09:30 Aerobic Blood Culture - Preliminary Blood - Venous - Lab Draw NO GROWTH AFTER 4 DAYS Anaerobic Blood Culture - Preliminary NO GROWTH AFTER 4 DAYS 05/04/20 09:10 Aerobic Blood Culture - Preliminary Blood - Arm, Right NO GROWTH AFTER 4 DAYS Anaerobic Blood Culture - Preliminary NO GROWTH AFTER 4 DAYS Sepsis Event Note - Evaluation Sepsis Screening Result: No Definite Risk - Focused Exam Vital Signs: Vital Signs Temp Pulse Resp BP Pulse Ox 05/09/20 07:40 92 L 05/09/20 07:02 68 05/09/20 07:00 95.8 F L 79 17 164/50 H 95 05/09/20 02:48 96.3 F L 72 20 152/46 H 94 L 05/09/20 01:11 95 05/08/20 22:48 96.2 F L 69 21 H 134/46 L 99 - Problem List Review Problem List Initiated/Reviewed/Updated: Yes - My Orders Last 24 Hours: My Active Orders 05/08/20 10:05 Dextrose 50% in Water 50 ml IV ONETIME PRN Dextrose [Glutose 15] 15 gm PO ONETIME PRN 05/08/20 10:06 Communication Order [RC] STAT Notify Provider [RC] .PRN 05/08/20 11:00 Insulin Lispro [HumaLOG] See Protocol SUBCUT QIDACANDBED 05/08/20 12:00 Doxycycline [Vibramycin] 100 mg Sodium Chloride 0.9% [Normal Saline] 100 ml IV Q12H 05/08/20 14:00 Cefepime [Maxipime] 2 gm Sodium Chloride 0.9% [Normal Saline] 50 ml IV Q24H 05/09/20 09:00 Magnesium Oxide 400 mg PO BID Magnesium Sulfate/Water [Magnesium Sulfate in Water 2 GM/50 ML] 2 gm in 50 ml IV Q6H 05/09/20 09:24 Remove [place] Catheter [Urinary Catheter Removal] [RC] Per Unit Routine 05/09/20 09:25 Bumetanide [Bumex] 2 mg IVPUSH ONETIME ONE 05/09/20 11:30 GLUCOSE POC LAB TO COLLECT JPM [POC] QIDACANDBED 05/09/20 16:30 GLUCOSE POC LAB TO COLLECT JPM [POC] QIDACANDBED 05/09/20 21:00 GLUCOSE POC LAB TO COLLECT JPM [POC] QIDACANDBED 05/10/20 05:00 BASIC METABOLIC PANEL,BMP [CHEM] Timed CBC WITH AUTO DIFF [HEME] Timed MAGNESIUM [CHEM] Timed 05/10/20 07:30 GLUCOSE POC LAB TO COLLECT JPM [POC] QIDACANDBED 05/10/20 11:30 GLUCOSE POC LAB TO COLLECT JPM [POC] QIDACANDBED 05/10/20 16:30 GLUCOSE POC LAB TO COLLECT JPM [POC] QIDACANDBED 05/10/20 21:00 GLUCOSE POC LAB TO COLLECT JPM [POC] QIDACANDBED 05/11/20 07:30 GLUCOSE POC LAB TO COLLECT JPM [POC] QIDACANDBED 05/11/20 11:30 GLUCOSE POC LAB TO COLLECT JPM [POC] QIDACANDBED 05/11/20 16:30 GLUCOSE POC LAB TO COLLECT JPM [POC] QIDACANDBED 05/11/20 21:00 GLUCOSE POC LAB TO COLLECT JPM [POC] QIDACANDBED 05/12/20 07:30 GLUCOSE POC LAB TO COLLECT JPM [POC] QIDACANDBED 05/12/20 11:30 GLUCOSE POC LAB TO COLLECT JPM [POC] QIDACANDBED 05/12/20 16:30 GLUCOSE POC LAB TO COLLECT JPM [POC] QIDACANDBED 05/12/20 21:00 GLUCOSE POC LAB TO COLLECT JPM [POC] QIDACANDBED 05/13/20 07:30 GLUCOSE POC LAB TO COLLECT JPM [POC] QIDACANDBED - Plan Plan:: ASSESSMENT AND PLAN - Acute on chronic heart failure with preserved ejection fraction-edema stable. -Bumetanide 2 mg IV today -Continue amlodipine 5 mg daily -Strict intake and output monitoring -Physical therapy Acute kidney injury-renal function is close to baseline -Hold gabapentin -PPI discontinued -Labs in the morning Persistent pulmonary infiltrates-continued hypoxia and requiring high levels of supplemental oxygen -Blood cultures pending -Continue expanded antibiotic coverage with meropenem and levofloxacin -Supplemental oxygen as needed -Noninvasive positive pressure ventilation as tolerated Hypernatremia-resolved Palliative care-she wants to continue current management but would also like to be treated for comfort. -Morphine and lorazepam as needed for comfort Hyperkalemia-resolved Severe oxygen dependent COPD-complicated by severe pulmonary hypertension and persistent bilateral pulmonary infiltrates related to recent Covid infection and ARDS. -Calcium channel beryl initiated as above -Scheduled and as needed nebulizers -Solu-Medrol 40 mg IV every 8 hours Type 2 diabetes mellitus-sugars improved after steroids were tapered. She is now off insulin and Accu-Cheks have been discontinued. Recent Covid infection Rheumatoid arthritis-stable. -Hold hydroxychloroquine Chronic lower extremity venous stasis ulcers-these were present on admission. Currently being managed with pressure wrappings and dressing changes daily. Maintenance issues - - DVT prophylaxis -apixaban - GI prophylaxis -PPI discontinued as above - Nutrition -consistent carbohydrates Disposition -I would anticipate discharge with subacute rehab at [facility]. She needs additional medication management before she is ready for discharge and this will likely be early next week. Primary care physician -Dr. Es Stewart
[2020-05-09] MEDS ORDERED: Benzocaine/Cetylpyridinium/Menthol Lozenge MUCMEM PRN (09:34)
[2020-05-09] MEDS ORDERED: Bumetanide 1 MG/4 ML MDV IVPUSH ONE (09:45)
[2020-05-09] MEDS: Insulin Lispro 100 Unit/ML 3 ML KwikPen SUBCUT SCH ×4 (10:01→20:44)
[2020-05-09] MEDS: Magnesium Sulfate/Water 2 GM/50 ML BAG IV SCH ×2 (10:02→15:00)
[2020-05-09] MEDS: Hydroxychloroquine 200 MG Tab PO SCH (10:02)
[2020-05-09] MEDS: Gabapentin 300 MG Cap PO SCH ×2 (10:02→20:33)
[2020-05-09] MEDS: Apixaban 2.5 MG Tab PO SCH ×2 (10:02→20:33)
[2020-05-09] MEDS: Magnesium Oxide 400 MG Tab PO SCH ×2 (10:02→20:33)
[2020-05-09] MEDS: Nystatin Topical Powder 15 GM Bottle TOP SCH ×3 (10:03→20:32)
[2020-05-09] MEDS: amLODIPine 5 MG Tab PO SCH (10:03)
[2020-05-09] MEDS: rOPINIRole 0.5 MG Tab PO SCH ×2 (10:09→20:33)
[2020-05-09] MEDS: Morphine 10 MG/0.5 ML Oral Syringe PO PRN ×2 (12:19→20:39)
[2020-05-09] MEDS: Cefepime 2 GM in Sodium Chloride 0.9% 50 ML IV SCH (13:55)
[2020-05-09] MEDS: Melatonin 3 MG Tab PO SCH (20:33)
[2020-05-10] MEDS: Doxycycline 100 MG in Sodium Chloride 0.9% 100 ML IV SCH ×2 (00:37→13:38)
[2020-05-10] MEDS: methylPREDNISolone Sodium Succinate 40 MG/1 ML SDV IVPUSH SCH ×3 (02:00→18:19)
[2020-05-10] MEDS: Diclofenac Sodium 1% Gel 100 GM Tube TOP SCH ×4 (06:13→21:21)
[2020-05-10] MEDS: Albuterol/Ipratropium 3.0-0.5 MG/3 ML Neb Soln NEB SCH ×4 (07:24→21:20)
[2020-05-10] MEDS: Insulin Lispro 100 Unit/ML 3 ML KwikPen SUBCUT SCH ×4 (08:49→21:19)
[2020-05-10] MEDS: Apixaban 2.5 MG Tab PO SCH ×2 (08:52→21:20)
[2020-05-10] MEDS: Gabapentin 300 MG Cap PO SCH ×2 (08:52→21:21)
[2020-05-10] MEDS: Magnesium Oxide 400 MG Tab PO SCH ×2 (08:52→21:20)
[2020-05-10] MEDS: amLODIPine 5 MG Tab PO SCH (08:52)
[2020-05-10] MEDS: Nystatin Topical Powder 15 GM Bottle TOP SCH ×3 (08:53→21:21)
[2020-05-10] MEDS: Hydroxychloroquine 200 MG Tab PO SCH (08:54)
[2020-05-10] MEDS: rOPINIRole 0.5 MG Tab PO SCH ×2 (08:54→21:21)
--- NOTE | 2020-05-10 10:57 | PCM.PN ---
- General Info Date of Service: 05/10/20 Subjective Update: Ms. Obrien has been fairly stable since yesterday. There has been perhaps slight improvement in respiratory status over the last 24 hours. She was able to jj ate a shower this morning without severe desaturation. Energy level slightly improved, appetite remains fairly poor. Functional Status: Reports: Urinating - Review of Systems General: Reports: Weakness, Fatigue. Denies: Fever, Chills Pulmonary: Reports: Shortness of Breath, Wheezing. Denies: Pleuritic Chest Pain, Cough, Sputum, Hemoptysis Cardiovascular: Reports: Dyspnea on Exertion. Denies: Chest Pain, Palpitations, Orthopnea, PND, Edema, Lightheadedness Gastrointestinal: Reports: No Symptoms Genitourinary: Reports: No Symptoms - Patient Data Vitals - Most Recent: Last Vital Signs Temp 97.9 F 05/10/20 10:30 Pulse 74 05/10/20 10:42 Resp 20 05/10/20 10:30 BP 133/56 L 05/10/20 10:30 Pulse Ox 100 05/10/20 10:30 Weight - Most Recent: 188 lb 6.4 oz I&O - Last 24 Hours: Intake & Output 05/09/20 05/10/20 05/10/20 22:59 06:59 14:59 Intake Total 100 0 Output Total 100 200 100 Balance -100 -100 -100 Lab Results Last 24 Hours: Laboratory Results - last 24 hr 05/09/20 05/09/20 05/09/20 Range/Units 11:30 16:30 20:47 WBC (4.5-11.0) K/uL RBC (3.30-5.50) M/uL Hgb (12.0-15.0) g/dL Hct (36.0-48.0) % MCV (80-98) fL MCH (27-31) pg MCHC (32-36) % Plt Count (150-400) K/uL Neut % (Auto) (36-66) % Lymph % (Auto) (24-44) % [place] % (Auto) (2-6) % Eos % (Auto) (2-4) % Baso % (Auto) (0-1) % Sodium (140-148) mmol/L Potassium (3.6-5.2) mmol/L Chloride (100-108) mmol/L Carbon Dioxide (21-32) mmol/L Anion Gap (5.0-14.0) mmol/L BUN (7-18) mg/dL Creatinine (0.6-1.0) mg/dL Est Cr Clr Drug Dosing mL/min Estimated GFR (MDRD) (>60) Glucose (74-106) mg/dL POC Glucose 302 H 247 H 327 H (74-106) MG/DL Calcium (8.5-10.1) mg/dL Magnesium (1.8-2.4) mg/dL Blood Type Gel Antibody Screen Crossmatch 05/10/20 05/10/20 05/10/20 Range/Units 05:45 05:49 05:49 WBC 2.8 L (4.5-11.0) K/uL RBC 2.66 L (3.30-5.50) M/uL Hgb 7.2 L (12.0-15.0) g/dL Hct 25.1 L (36.0-48.0) % MCV 94 (80-98) fL MCH 27 (27-31) pg MCHC 29 L (32-36) % Plt Count 93 L (150-400) K/uL Neut % (Auto) 85 H (36-66) % Lymph % (Auto) 13 L (24-44) % [place] % (Auto) 3 (2-6) % Eos % (Auto) 0 L (2-4) % Baso % (Auto) 0 (0-1) % Sodium 145 (140-148) mmol/L Potassium 5.6 H (3.6-5.2) mmol/L Chloride 107 (100-108) mmol/L Carbon Dioxide 34 H (21-32) mmol/L Anion Gap 9.6 (5.0-14.0) mmol/L BUN 83 H* (7-18) mg/dL Creatinine 1.5 H (0.6-1.0) mg/dL Est Cr Clr Drug Dosing 26.19 mL/min Estimated GFR (MDRD) 34 L (>60) Glucose 204 H (74-106) mg/dL POC Glucose (74-106) MG/DL Calcium 7.9 L (8.5-10.1) mg/dL Magnesium 2.6 H D (1.8-2.4) mg/dL Blood Type A POSITIVE Gel Antibody Screen Negative Crossmatch See Detail 05/10/20 Range/Units 07:30 WBC (4.5-11.0) K/uL RBC (3.30-5.50) M/uL Hgb (12.0-15.0) g/dL Hct (36.0-48.0) % MCV (80-98) fL MCH (27-31) pg MCHC (32-36) % Plt Count (150-400) K/uL Neut % (Auto) (36-66) % Lymph % (Auto) (24-44) % [place] % (Auto) (2-6) % Eos % (Auto) (2-4) % Baso % (Auto) (0-1) % Sodium (140-148) mmol/L Potassium (3.6-5.2) mmol/L Chloride (100-108) mmol/L Carbon Dioxide (21-32) mmol/L Anion Gap (5.0-14.0) mmol/L BUN (7-18) mg/dL Creatinine (0.6-1.0) mg/dL Est Cr Clr Drug Dosing mL/min Estimated GFR (MDRD) (>60) Glucose (74-106) mg/dL POC Glucose 267 H (74-106) MG/DL Calcium (8.5-10.1) mg/dL Magnesium (1.8-2.4) mg/dL Blood Type Gel Antibody Screen Crossmatch Antwon Results Last 24 Hours: Microbiology 05/04/20 09:30 Aerobic Blood Culture - Final Blood - Venous - Lab Draw NO GROWTH AFTER 5 DAYS Anaerobic Blood Culture - Final NO GROWTH AFTER 5 DAYS 05/04/20 09:10 Aerobic Blood Culture - Final Blood - Arm, Right NO GROWTH AFTER 5 DAYS Anaerobic Blood Culture - Final NO GROWTH AFTER 5 DAYS Med Orders - Current: Current Medications Acetaminophen (Tylenol) 650 mg PO Q4H PRN PRN Reason: Pain (Mild 1-3)/fever Hydrocodone Bitart/Acetaminophen (Eckert 325-5 Mg) 1 tab PO Q4H PRN PRN Reason: Pain (moderate 4-6) Last Admin: 05/08/20 05:59 Dose: 1 tab Documented by: Albuterol (Proventil Neb Soln) 2.5 mg NEB Q4H PRN PRN Reason: Shortness Of Breath/wheezing Last Admin: 05/03/20 14:05 Dose: 2.5 mg Documented by: Albuterol/Ipratropium (Duoneb 3.0-0.5 Mg/3 Ml) 3 ml NEB QIDRT [facility] Last Admin: 05/10/20 10:42 Dose: 3 ml Documented by: Amlodipine Besylate (Norvasc) 5 mg PO DAILY [facility] Last Admin: 05/10/20 08:52 Dose: 5 mg Documented by: Apixaban (Eliquis) 2.5 mg PO BID [facility] Last Admin: 05/10/20 08:52 Dose: 2.5 mg Documented by: Artificial Tears (Genteal Mild To Moderate Ophth Soln) 0 ml EYEBOTH QID PRN PRN Reason: DRY EYES Benzocaine/Menthol (Cepacol Sore Throat) 1 lozenge MUCMEM Q2H PRN PRN Reason: Sore Throat Dextrose (Glutose 15) 15 gm PO ONETIME PRN PRN Reason: Hypoglycemia Dextrose/Water (Dextrose 50% In Water) 50 ml IV ONETIME PRN PRN Reason: Hypoglycemia Diclofenac Sodium (Voltaren 1% Gel) 0 gm TOP QID [facility] Last Admin: 05/10/20 06:13 Dose: Not Given Documented by: Gabapentin (Neurontin) 300 mg PO BID [facility] Last Admin: 05/10/20 08:52 Dose: 300 mg Documented by: Hydroxychloroquine Sulfate (Plaquenil) 200 mg PO DAILY [facility] Last Admin: 05/10/20 08:54 Dose: 200 mg Documented by: Doxycycline Hyclate 100 mg/ (Sodium Chloride) 100 mls @ 100 mls/hr IV Q12H [facility] Stop: 05/11/20 08:00 Last Admin: 05/10/20 00:37 Dose: 100 mls/hr Documented by: Cefepime HCl 2 gm/ Sodium (Chloride) 50 mls @ 100 mls/hr IV Q24H [facility] Stop: 05/11/20 08:00 Last Admin: 05/09/20 13:55 Dose: 100 mls/hr Documented by: Insulin Human Lispro (Humalog) 0 unit SUBCUT QIDACANDBED [facility]; Protocol Last Admin: 05/10/20 08:49 Dose: 3 units Documented by: Lorazepam (Ativan) 0.5 mg IVPUSH Q4H PRN PRN Reason: Nausea/Vomiting Last Admin: 05/04/20 21:30 Dose: 0.5 mg Documented by: Lorazepam (Ativan Oral Concentrate 1mg/0.5 Ml U/D) 0.5 mg PO Q2H PRN PRN Reason: Anxiety Last Admin: 05/05/20 14:16 Dose: 0.5 mg Documented by: Magnesium Hydroxide (Milk Of Magnesia) 30 ml PO Q12H PRN PRN Reason: Constipation Magnesium Oxide (Magnesium Oxide) 400 mg PO BID [facility] Last Admin: 05/10/20 08:52 Dose: 400 mg Documented by: Melatonin (Melatonin) 9 mg PO BEDTIME [facility] Last Admin: 05/09/20 20:33 Dose: 9 mg Documented by: Methylprednisolone Sodium Succinate (Solu-Medrol) 40 mg IVPUSH Q8H [facility] Last Admin: 05/10/20 02:00 Dose: 40 mg Documented by: Morphine Sulfate (Morphine 10 Mg/0.5 Ml Oral Syringe) 2.5 mg PO Q2H PRN PRN Reason: Dyspnea Last Admin: 05/09/20 20:39 Dose: 2.5 mg Documented by: Nystatin (Nystop) 0 gm TOP TID [facility] Last Admin: 05/10/20 08:53 Dose: 1 applic Documented by: Ondansetron HCl (Zofran) 4 mg IV Q6H PRN PRN Reason: Nausea/Vomiting Last Admin: 04/29/20 12:36 Dose: 4 mg Documented by: Ondansetron HCl (Zofran Odt) 4 mg PO Q6H PRN PRN Reason: Nausea able to take PO Ropinirole HCl (Requip) 1.5 mg PO BID [facility] Last Admin: 05/10/20 08:54 Dose: 1.5 mg Documented by: Senna/Docusate Sodium (Senna Plus) 1 tab PO BID PRN PRN Reason: Constipation Sodium Chloride (Saline Flush) 10 ml FLUSH ASDIRECTED PRN PRN Reason: Keep Vein Open Last Admin: 04/28/20 14:28 Dose: 10 ml Documented by: Discontinued Medications Bumetanide (Bumex) 1 mg IVPUSH ONETIME ONE Stop: 04/28/20 14:13 Last Admin: 04/28/20 14:23 Dose: 1 mg Documented by: Bumetanide (Bumex) 2 mg IVPUSH ONETIME ONE Stop: 04/29/20 07:01 Last Admin: 04/29/20 06:32 Dose: 2 mg Documented by: Bumetanide (Bumex) 2 mg IVPUSH ONETIME ONE Stop: 05/02/20 10:35 Last Admin: 05/02/20 11:43 Dose: 2 mg Documented by: Bumetanide (Bumex) 2 mg IVPUSH ONETIME ONE Stop: 05/03/20 13:01 Last Admin: 05/03/20 14:05 Dose: 2 mg Documented by: Bumetanide (Bumex) 2 mg IVPUSH BID [facility] Stop: 05/04/20 21:01 Last Admin: 05/04/20 20:02 Dose: 2 mg Documented by: Bumetanide (Bumex) 1 mg IVPUSH ONETIME ONE Stop: 05/06/20 12:16 Last Admin: 05/06/20 12:17 Dose: 1 mg Documented by: Bumetanide (Bumex) 2 mg IVPUSH ONETIME ONE Stop: 05/07/20 11:01 Last Admin: 05/07/20 11:18 Dose: 2 mg Documented by: Bumetanide (Bumex) 1 mg IVPUSH ONETIME ONE Stop: 05/08/20 10:31 Last Admin: 05/08/20 11:15 Dose: 1 mg Documented by: Bumetanide (Bumex) 2 mg IVPUSH ONETIME ONE Stop: 05/09/20 09:46 Last Admin: 05/09/20 10:09 Dose: 2 mg Documented by: Carvedilol (Coreg) 3.125 mg PO BID [facility] Last Admin: 04/28/20 20:53 Dose: 3.125 mg Documented by: Doxycycline Hyclate (Vibramycin) 100 mg PO BID [facility] Last Admin: 05/04/20 08:52 Dose: 100 mg Documented by: Gabapentin (Neurontin) 300 mg PO BID@0800,1200 [facility] Last Admin: 05/01/20 08:21 Dose: 300 mg Documented by: Gabapentin (Neurontin) 600 mg PO BEDTIME [facility] Last Admin: 04/30/20 21:28 Dose: 600 mg Documented by: Sodium Chloride (Normal Saline) 1,000 mls @ 125 mls/hr IV ASDIRECTED [facility] Stop: 04/29/20 17:31 Last Admin: 04/29/20 11:05 Dose: 125 mls/hr Documented by: Sodium Chloride (Normal Saline) 500 mls @ 125 mls/hr IV ASDIRECTED ONE Stop: 04/30/20 13:59 Last Admin: 04/30/20 10:31 Dose: 125 mls/hr Documented by: Sodium Chloride (Normal Saline) 500 mls @ 125 mls/hr IV ONETIME ONE Stop: 05/01/20 09:48 Last Admin: 05/01/20 06:06 Dose: 125 mls/hr Documented by: Albumin Human (Albumin 25%) 25 gm in 100 mls @ 25 mls/hr IV Q6H [facility] Stop: 05/04/20 08:59 Last Admin: 05/04/20 05:19 Dose: 25 mls/hr Documented by: Meropenem 1 gm/ Sodium (Chloride) 50 mls @ 100 mls/hr IV Q12H [facility] Last Admin: 05/07/20 23:49 Dose: 100 mls/hr Documented by: Levofloxacin/Dextrose 750 mg/ (Premix) 150 mls @ 100 mls/hr IV Q24H [facility] Last Admin: 05/04/20 09:31 Dose: 100 mls/hr Documented by: Dextrose/Water (Dextrose 5% In Water) 1,000 mls @ 75 mls/hr IV ASDIRECTED [facility] Last Admin: 05/05/20 23:37 Dose: 75 mls/hr Documented by: Levofloxacin/Dextrose 750 mg/ (Premix) 150 mls @ 100 mls/hr IV Q48H [facility] Last Admin: 05/08/20 11:39 Dose: Not Given Documented by: Magnesium Sulfate (Magnesium Sulfate In Water 2 Gm/50 Ml) 2 gm in 50 mls @ 25 mls/hr IV Q6H [facility] Stop: 05/09/20 16:59 Last Admin: 05/09/20 15:00 Dose: 25 mls/hr Documented by: Insulin Human Lispro (Humalog) 0 unit SUBCUT QIDACANDBED [facility]; Protocol Last Admin: 05/01/20 12:38 Dose: Not Given Documented by: Losartan Potassium (Cozaar) 50 mg PO DAILY [facility] Nitroglycerin (Nitrostat) 0.4 mg SL ONETIME ONE Stop: 04/28/20 14:15 Last Admin: 04/28/20 14:22 Dose: 0.4 mg Documented by: Pantoprazole Sodium (Protonix) 40 mg PO DAILY@0730 [facility] Last Admin: 05/01/20 08:21 Dose: 40 mg Documented by: Sodium Chloride (Saline Flush) 10 ml FLUSH ASDIRECTED PRN PRN Reason: Keep Vein Open Last Admin: 04/28/20 14:29 Dose: 10 ml Documented by: Sodium Polystyrene Sulfonate (Kayexalate) 30 gm PO ONETIME ONE Stop: 05/02/20 05:55 Last Admin: 05/02/20 07:08 Dose: 30 gm Documented by: Spironolactone (Aldactone) 25 mg PO DAILY [facility] Last Admin: 04/29/20 10:17 Dose: Not Given Documented by: - Exam Quality Assessment: Supplemental Oxygen, DVT Prophylaxis General: Alert, Oriented, Cooperative, Moderate Distress Lungs: Decreased Breath Sounds, Rales, Rhonchi, Wheezing. No: Crackles Cardiovascular: Regular Rate, Regular Rhythm, No Murmurs GI/Abdominal Exam: Soft, Non-Tender, No Organomegaly, No Distention Extremities: Non-Tender, Pedal Edema - Patient Data Lab Results Last 24 hrs: Laboratory Results - last 24 hr 05/09/20 05/09/20 05/09/20 Range/Units 11:30 16:30 20:47 WBC (4.5-11.0) K/uL RBC (3.30-5.50) M/uL Hgb (12.0-15.0) g/dL Hct (36.0-48.0) % MCV (80-98) fL MCH (27-31) pg MCHC (32-36) % Plt Count (150-400) K/uL Neut % (Auto) (36-66) % Lymph % (Auto) (24-44) % [place] % (Auto) (2-6) % Eos % (Auto) (2-4) % Baso % (Auto) (0-1) % Sodium (140-148) mmol/L Potassium (3.6-5.2) mmol/L Chloride (100-108) mmol/L Carbon Dioxide (21-32) mmol/L Anion Gap (5.0-14.0) mmol/L BUN (7-18) mg/dL Creatinine (0.6-1.0) mg/dL Est Cr Clr Drug Dosing mL/min Estimated GFR (MDRD) (>60) Glucose (74-106) mg/dL POC Glucose 302 H 247 H 327 H (74-106) MG/DL Calcium (8.5-10.1) mg/dL Magnesium (1.8-2.4) mg/dL Blood Type Gel Antibody Screen Crossmatch 05/10/20 05/10/20 05/10/20 Range/Units 05:45 05:49 05:49 WBC 2.8 L (4.5-11.0) K/uL RBC 2.66 L (3.30-5.50) M/uL Hgb 7.2 L (12.0-15.0) g/dL Hct 25.1 L (36.0-48.0) % MCV 94 (80-98) fL MCH 27 (27-31) pg MCHC 29 L (32-36) % Plt Count 93 L (150-400) K/uL Neut % (Auto) 85 H (36-66) % Lymph % (Auto) 13 L (24-44) % [place] % (Auto) 3 (2-6) % Eos % (Auto) 0 L (2-4) % Baso % (Auto) 0 (0-1) % Sodium 145 (140-148) mmol/L Potassium 5.6 H (3.6-5.2) mmol/L Chloride 107 (100-108) mmol/L Carbon Dioxide 34 H (21-32) mmol/L Anion Gap 9.6 (5.0-14.0) mmol/L BUN 83 H* (7-18) mg/dL Creatinine 1.5 H (0.6-1.0) mg/dL Est Cr Clr Drug Dosing 26.19 mL/min Estimated GFR (MDRD) 34 L (>60) Glucose 204 H (74-106) mg/dL POC Glucose (74-106) MG/DL Calcium 7.9 L (8.5-10.1) mg/dL Magnesium 2.6 H D (1.8-2.4) mg/dL Blood Type A POSITIVE Gel Antibody Screen Negative Crossmatch See Detail 05/10/20 Range/Units 07:30 WBC (4.5-11.0) K/uL RBC (3.30-5.50) M/uL Hgb (12.0-15.0) g/dL Hct (36.0-48.0) % MCV (80-98) fL MCH (27-31) pg MCHC (32-36) % Plt Count (150-400) K/uL Neut % (Auto) (36-66) % Lymph % (Auto) (24-44) % [place] % (Auto) (2-6) % Eos % (Auto) (2-4) % Baso % (Auto) (0-1) % Sodium (140-148) mmol/L Potassium (3.6-5.2) mmol/L Chloride (100-108) mmol/L Carbon Dioxide (21-32) mmol/L Anion Gap (5.0-14.0) mmol/L BUN (7-18) mg/dL Creatinine (0.6-1.0) mg/dL Est Cr Clr Drug Dosing mL/min Estimated GFR (MDRD) (>60) Glucose (74-106) mg/dL POC Glucose 267 H (74-106) MG/DL Calcium (8.5-10.1) mg/dL Magnesium (1.8-2.4) mg/dL Blood Type Gel Antibody Screen Crossmatch Result Diagrams: 05/10/20 05:49 05/10/20 05:49 Antwon Results Last 24 hrs: Microbiology 05/04/20 09:30 Aerobic Blood Culture - Final Blood - Venous - Lab Draw NO GROWTH AFTER 5 DAYS Anaerobic Blood Culture - Final NO GROWTH AFTER 5 DAYS 05/04/20 09:10 Aerobic Blood Culture - Final Blood - Arm, Right NO GROWTH AFTER 5 DAYS Anaerobic Blood Culture - Final NO GROWTH AFTER 5 DAYS Sepsis Event Note - Evaluation Sepsis Screening Result: Severe Sepsis Risk - Focused Exam Vital Signs: Vital Signs Temp Temp Pulse Resp BP BP BP 05/10/20 10:42 74 05/10/20 10:30 97.9 F 72 20 133/56 L 05/10/20 10:25 97.9 F 75 20 152/49 H 05/10/20 08:52 153/51 H 05/10/20 07:49 95.5 F L 74 20 153/51 H 05/10/20 07:33 05/10/20 07:25 75 05/10/20 03:00 94.7 F L 80 20 150/44 H 05/10/20 01:18 05/09/20 22:54 96 F L 68 19 134/37 L Pulse Ox 05/10/20 10:42 05/10/20 10:30 100 05/10/20 10:25 97 05/10/20 08:52 05/10/20 07:49 95 05/10/20 07:33 100 05/10/20 07:25 05/10/20 03:00 93 L 05/10/20 01:18 94 L 05/09/20 22:54 95 - Problem List Review Problem List Initiated/Reviewed/Updated: Yes - My Orders Last 24 Hours: My Active Orders 05/10/20 08:10 Transfuse Red Blood Cells [COMM] Urgent 05/10/20 11:30 GLUCOSE POC LAB TO COLLECT JPM [POC] QIDACANDBED 05/10/20 16:30 GLUCOSE POC LAB TO COLLECT JPM [POC] QIDACANDBED 05/10/20 17:00 HEMOGLOBIN [HEME] Routine POTASSIUM,K [CHEM] Routine 05/10/20 21:00 GLUCOSE POC LAB TO COLLECT JPM [POC] QIDACANDBED 05/11/20 05:00 BASIC METABOLIC PANEL,BMP [CHEM] Timed CBC WITH AUTO DIFF [HEME] Timed 05/11/20 07:30 GLUCOSE POC LAB TO COLLECT JPM [POC] QIDACANDBED 05/11/20 11:30 GLUCOSE POC LAB TO COLLECT JPM [POC] QIDACANDBED 05/11/20 16:30 GLUCOSE POC LAB TO COLLECT JPM [POC] QIDACANDBED 05/11/20 21:00 GLUCOSE POC LAB TO COLLECT JPM [POC] QIDACANDBED 05/12/20 07:30 GLUCOSE POC LAB TO COLLECT JPM [POC] QIDACANDBED 05/12/20 11:30 GLUCOSE POC LAB TO COLLECT JPM [POC] QIDACANDBED 05/12/20 16:30 GLUCOSE POC LAB TO COLLECT JPM [POC] QIDACANDBED 05/12/20 21:00 GLUCOSE POC LAB TO COLLECT JPM [POC] QIDACANDBED 05/13/20 07:30 GLUCOSE POC LAB TO COLLECT JPM [POC] QIDACANDBED - Plan Plan:: ASSESSMENT AND PLAN - Diastolic congestive heart failure-moderate diastolic dysfunction noted on echocardiogram with evidence of severe asymmetric septal hypertrophy. Also noted was elevation in right-sided pressures. -Hold diuretic therapy today because of increase in creatinine and BUN -Continue amlodipine 5 mg daily -Strict intake and output monitoring -Physical therapy Acute kidney injury-creatinine has increased mildly over the last 24 hours -PPI discontinued -Labs in the morning Persistent pulmonary infiltrates-continued hypoxia and requiring high levels of supplemental oxygen -Blood cultures pending -antibiotic coverage with cefepime and doxycycline, discontinue tomorrow morning -Supplemental oxygen as needed -Noninvasive positive pressure ventilation as tolerated Hypernatremia-resolved Palliative care-she wants to continue current management but would also like to be treated for comfort. -Morphine and lorazepam as needed for comfort Hyperkalemia -Reassess potassium level later this afternoon and in a.m. Anemia-hemoglobin has now dropped to 7.3, given ongoing hypoxia and cardiac compromise we will plan to transfuse -Transfuse 1 unit of red blood cells -Reassess hemoglobin later this afternoon and in a.m. Severe oxygen dependent COPD-complicated by severe pulmonary hypertension and persistent bilateral pulmonary infiltrates related to recent Covid infection and ARDS. -Calcium channel beryl initiated as above -Scheduled and as needed nebulizers -Solu-Medrol 40 mg IV every 8 hours, reassess in a.m. Type 2 diabetes mellitus-sugars improved after steroids were tapered. She is now off insulin and Accu-Cheks have been discontinued. Recent Covid infection Rheumatoid arthritis-stable. -Hold hydroxychloroquine Chronic lower extremity venous stasis ulcers-these were present on admission. Currently being managed with pressure wrappings and dressing changes daily. Maintenance issues - - DVT prophylaxis -apixaban - GI prophylaxis -PPI discontinued as above - Nutrition -consistent carbohydrates Disposition -I would anticipate discharge with subacute rehab at [facility]. She needs additional medication management before she is ready for discharge and this will likely be early next week. Primary care physician -Dr. Es Stewart
[2020-05-10] MEDS: Morphine 10 MG/0.5 ML Oral Syringe PO PRN (13:37)
[2020-05-10] MEDS: Cefepime 2 GM in Sodium Chloride 0.9% 50 ML IV SCH (15:15)
[2020-05-10] MEDS: Melatonin 3 MG Tab PO SCH (21:20)
[2020-05-11] MEDS: Doxycycline 100 MG in Sodium Chloride 0.9% 100 ML IV SCH (00:30)
[2020-05-11] MEDS: methylPREDNISolone Sodium Succinate 40 MG/1 ML SDV IVPUSH SCH (02:12)
[2020-05-11] MEDS: Diclofenac Sodium 1% Gel 100 GM Tube TOP SCH ×4 (05:47→20:59)
[2020-05-11] MEDS: Albuterol/Ipratropium 3.0-0.5 MG/3 ML Neb Soln NEB SCH ×4 (07:05→20:55)
[2020-05-11] MEDS: Insulin Lispro 100 Unit/ML 3 ML KwikPen SUBCUT SCH ×4 (07:29→21:11)
[2020-05-11] MEDS: rOPINIRole 0.5 MG Tab PO SCH ×2 (09:29→21:01)
[2020-05-11] MEDS: Nystatin Topical Powder 15 GM Bottle TOP SCH ×3 (09:29→21:13)
[2020-05-11] MEDS: Apixaban 2.5 MG Tab PO SCH ×2 (09:30→20:55)
[2020-05-11] MEDS: Hydroxychloroquine 200 MG Tab PO SCH (09:30)
[2020-05-11] MEDS: Gabapentin 300 MG Cap PO SCH ×2 (09:30→21:00)
[2020-05-11] MEDS ORDERED: predniSONE 20 MG Tab PO ONE (09:30)
[2020-05-11] MEDS: Magnesium Oxide 400 MG Tab PO SCH ×2 (09:30→20:55)
[2020-05-11] MEDS: amLODIPine 5 MG Tab PO SCH ×2 (09:31→21:00)
--- NOTE | 2020-05-11 10:58 | PCM.PN ---
- General Info Date of Service: 05/11/20 Subjective Update: There were no acute events overnight. Oxygenation is slightly better today and she is down to 10 L of supplemental oxygen. She does not have much of a cough. Her shortness of breath is subjectively a little better and she was able to shower yesterday. Appetite has been stable. She has not had any fevers. No complaints of abdominal pain. Lower extremity edema is increased from yesterday. She would like to continue to try to aggressively manage her co nditions and is not ready for comfort care at this time. Functional Status: Reports: Pain Controlled, Tolerating Diet - Review of Systems General: Reports: Weakness. Denies: Fever Pulmonary: Reports: Shortness of Breath - Patient Data Vitals - Most Recent: Last Vital Signs Temp 36.3 C 05/11/20 07:24 Pulse 66 05/11/20 10:45 Resp 20 05/11/20 07:24 BP 153/48 H 05/11/20 09:31 Pulse Ox 95 05/11/20 07:28 Weight - Most Recent: 87.18 kg I&O - Last 24 Hours: Intake & Output 05/10/20 05/11/20 05/11/20 22:59 06:59 14:59 Intake Total 500 Output Total 300 100 Balance 200 -100 Lab Results Last 24 Hours: Laboratory Results - last 24 hr 05/10/20 05/10/20 05/10/20 Range/Units 05:45 11:30 16:28 WBC (4.5-11.0) K/uL RBC (3.30-5.50) M/uL Hgb 7.8 L (12.0-15.0) g/dL Hct (36.0-48.0) % MCV (80-98) fL MCH (27-31) pg MCHC (32-36) % Plt Count (150-400) K/uL Neut % (Auto) (36-66) % Lymph % (Auto) (24-44) % [place] % (Auto) (2-6) % Eos % (Auto) (2-4) % Baso % (Auto) (0-1) % Sodium (140-148) mmol/L Potassium (3.6-5.2) mmol/L Chloride (100-108) mmol/L Carbon Dioxide (21-32) mmol/L Anion Gap (5.0-14.0) mmol/L BUN (7-18) mg/dL Creatinine (0.6-1.0) mg/dL Est Cr Clr Drug Dosing mL/min Estimated GFR (MDRD) (>60) Glucose (74-106) mg/dL POC Glucose 225 H (74-106) MG/DL Calcium (8.5-10.1) mg/dL Crossmatch See Detail 05/10/20 05/10/20 05/10/20 Range/Units 16:28 16:30 21:00 WBC (4.5-11.0) K/uL RBC (3.30-5.50) M/uL Hgb (12.0-15.0) g/dL Hct (36.0-48.0) % MCV (80-98) fL MCH (27-31) pg MCHC (32-36) % Plt Count (150-400) K/uL Neut % (Auto) (36-66) % Lymph % (Auto) (24-44) % [place] % (Auto) (2-6) % Eos % (Auto) (2-4) % Baso % (Auto) (0-1) % Sodium (140-148) mmol/L Potassium 5.3 H (3.6-5.2) mmol/L Chloride (100-108) mmol/L Carbon Dioxide (21-32) mmol/L Anion Gap (5.0-14.0) mmol/L BUN (7-18) mg/dL Creatinine (0.6-1.0) mg/dL Est Cr Clr Drug Dosing mL/min Estimated GFR (MDRD) (>60) Glucose (74-106) mg/dL POC Glucose 204 H 349 H (74-106) MG/DL Calcium (8.5-10.1) mg/dL Crossmatch 05/11/20 05/11/20 05/11/20 Range/Units 05:00 05:00 07:30 WBC 2.5 L (4.5-11.0) K/uL RBC 2.87 L (3.30-5.50) M/uL Hgb 7.9 L (12.0-15.0) g/dL Hct 26.4 L (36.0-48.0) % MCV 92 (80-98) fL MCH 28 (27-31) pg MCHC 30 L (32-36) % Plt Count 92 L (150-400) K/uL Neut % (Auto) 88 H (36-66) % Lymph % (Auto) 10 L (24-44) % [place] % (Auto) 2 (2-6) % Eos % (Auto) 0 L (2-4) % Baso % (Auto) 0 (0-1) % Sodium 142 (140-148) mmol/L Potassium 5.3 H (3.6-5.2) mmol/L Chloride 105 (100-108) mmol/L Carbon Dioxide 31 (21-32) mmol/L Anion Gap 11.3 (5.0-14.0) mmol/L BUN 94 H* (7-18) mg/dL Creatinine 1.6 H (0.6-1.0) mg/dL Est Cr Clr Drug Dosing 24.55 mL/min Estimated GFR (MDRD) 32 L (>60) Glucose 256 H (74-106) mg/dL POC Glucose 298 H (74-106) MG/DL Calcium 7.6 L (8.5-10.1) mg/dL Crossmatch Med Orders - Current: Current Medications Acetaminophen (Tylenol) 650 mg PO Q4H PRN PRN Reason: Pain (Mild 1-3)/fever Hydrocodone Bitart/Acetaminophen ([place] 325-5 Mg) 1 tab PO Q4H PRN PRN Reason: Pain (moderate 4-6) Last Admin: 05/08/20 05:59 Dose: 1 tab Documented by: Albuterol (Proventil Neb Soln) 2.5 mg NEB Q4H PRN PRN Reason: Shortness Of Breath/wheezing Last Admin: 05/03/20 14:05 Dose: 2.5 mg Documented by: Albuterol/Ipratropium (Duoneb 3.0-0.5 Mg/3 Ml) 3 ml NEB QIDRT [facility] Last Admin: 05/11/20 10:43 Dose: 3 ml Documented by: Amlodipine Besylate (Norvasc) 5 mg PO DAILY [facility] Last Admin: 05/11/20 09:31 Dose: 5 mg Documented by: Apixaban (Eliquis) 2.5 mg PO BID [facility] Last Admin: 05/11/20 09:30 Dose: 2.5 mg Documented by: Artificial Tears (Genteal Mild To Moderate Ophth Soln) 0 ml EYEBOTH QID PRN PRN Reason: DRY EYES Benzocaine/Menthol (Cepacol Sore Throat) 1 lozenge MUCMEM Q2H PRN PRN Reason: Sore Throat Dextrose (Glutose 15) 15 gm PO ONETIME PRN PRN Reason: Hypoglycemia Dextrose/Water (Dextrose 50% In Water) 50 ml IV ONETIME PRN PRN Reason: Hypoglycemia Diclofenac Sodium (Voltaren 1% Gel) 0 gm TOP QID [facility] Last Admin: 05/11/20 05:47 Dose: Not Given Documented by: Gabapentin (Neurontin) 300 mg PO BID [facility] Last Admin: 05/11/20 09:30 Dose: 300 mg Documented by: Hydroxychloroquine Sulfate (Plaquenil) 200 mg PO DAILY [facility] Last Admin: 05/11/20 09:30 Dose: 200 mg Documented by: Insulin Human Lispro (Humalog) 0 unit SUBCUT QIDACANDBED [facility]; Protocol Lorazepam (Ativan) 0.5 mg IVPUSH Q4H PRN PRN Reason: Nausea/Vomiting Last Admin: 05/04/20 21:30 Dose: 0.5 mg Documented by: Lorazepam (Ativan Oral Concentrate 1mg/0.5 Ml U/D) 0.5 mg PO Q2H PRN PRN Reason: Anxiety Last Admin: 05/05/20 14:16 Dose: 0.5 mg Documented by: Magnesium Hydroxide (Milk Of Magnesia) 30 ml PO Q12H PRN PRN Reason: Constipation Magnesium Oxide (Magnesium Oxide) 400 mg PO BID [facility] Last Admin: 05/11/20 09:30 Dose: 400 mg Documented by: Melatonin (Melatonin) 9 mg PO BEDTIME [facility] Last Admin: 05/10/20 21:20 Dose: 9 mg Documented by: Morphine Sulfate (Morphine 10 Mg/0.5 Ml Oral Syringe) 2.5 mg PO Q2H PRN PRN Reason: Dyspnea Last Admin: 05/10/20 13:37 Dose: 2.5 mg Documented by: Nystatin (Nystop) 0 gm TOP TID [facility] Last Admin: 05/11/20 09:29 Dose: 1 applic Documented by: Ondansetron HCl (Zofran) 4 mg IV Q6H PRN PRN Reason: Nausea/Vomiting Last Admin: 04/29/20 12:36 Dose: 4 mg Documented by: Ondansetron HCl (Zofran Odt) 4 mg PO Q6H PRN PRN Reason: Nausea able to take PO Prednisone (Prednisone) 20 mg PO WITHBREAKFAST [facility] Ropinirole HCl (Requip) 1.5 mg PO BID [facility] Last Admin: 05/11/20 09:29 Dose: 1.5 mg Documented by: Senna/Docusate Sodium (Senna Plus) 1 tab PO BID PRN PRN Reason: Constipation Sodium Chloride (Saline Flush) 10 ml FLUSH ASDIRECTED PRN PRN Reason: Keep Vein Open Last Admin: 04/28/20 14:28 Dose: 10 ml Documented by: Discontinued Medications Bumetanide (Bumex) 1 mg IVPUSH ONETIME ONE Stop: 04/28/20 14:13 Last Admin: 04/28/20 14:23 Dose: 1 mg Documented by: Bumetanide (Bumex) 2 mg IVPUSH ONETIME ONE Stop: 04/29/20 07:01 Last Admin: 04/29/20 06:32 Dose: 2 mg Documented by: Bumetanide (Bumex) 2 mg IVPUSH ONETIME ONE Stop: 05/02/20 10:35 Last Admin: 05/02/20 11:43 Dose: 2 mg Documented by: Bumetanide (Bumex) 2 mg IVPUSH ONETIME ONE Stop: 05/03/20 13:01 Last Admin: 05/03/20 14:05 Dose: 2 mg Documented by: Bumetanide (Bumex) 2 mg IVPUSH BID [facility] Stop: 05/04/20 21:01 Last Admin: 05/04/20 20:02 Dose: 2 mg Documented by: Bumetanide (Bumex) 1 mg IVPUSH ONETIME ONE Stop: 05/06/20 12:16 Last Admin: 05/06/20 12:17 Dose: 1 mg Documented by: Bumetanide (Bumex) 2 mg IVPUSH ONETIME ONE Stop: 05/07/20 11:01 Last Admin: 05/07/20 11:18 Dose: 2 mg Documented by: Bumetanide (Bumex) 1 mg IVPUSH ONETIME ONE Stop: 05/08/20 10:31 Last Admin: 05/08/20 11:15 Dose: 1 mg Documented by: Bumetanide (Bumex) 2 mg IVPUSH ONETIME ONE Stop: 05/09/20 09:46 Last Admin: 05/09/20 10:09 Dose: 2 mg Documented by: Carvedilol (Coreg) 3.125 mg PO BID [facility] Last Admin: 04/28/20 20:53 Dose: 3.125 mg Documented by: Doxycycline Hyclate (Vibramycin) 100 mg PO BID [facility] Last Admin: 05/04/20 08:52 Dose: 100 mg Documented by: Gabapentin (Neurontin) 300 mg PO BID@0800,1200 [facility] Last Admin: 05/01/20 08:21 Dose: 300 mg Documented by: Gabapentin (Neurontin) 600 mg PO BEDTIME [facility] Last Admin: 04/30/20 21:28 Dose: 600 mg Documented by: Sodium Chloride (Normal Saline) 1,000 mls @ 125 mls/hr IV ASDIRECTED [facility] Stop: 04/29/20 17:31 Last Admin: 04/29/20 11:05 Dose: 125 mls/hr Documented by: Sodium Chloride (Normal Saline) 500 mls @ 125 mls/hr IV ASDIRECTED ONE Stop: 04/30/20 13:59 Last Admin: 04/30/20 10:31 Dose: 125 mls/hr Documented by: Sodium Chloride (Normal Saline) 500 mls @ 125 mls/hr IV ONETIME ONE Stop: 05/01/20 09:48 Last Admin: 05/01/20 06:06 Dose: 125 mls/hr Documented by: Albumin Human (Albumin 25%) 25 gm in 100 mls @ 25 mls/hr IV Q6H [facility] Stop: 05/04/20 08:59 Last Admin: 05/04/20 05:19 Dose: 25 mls/hr Documented by: Meropenem 1 gm/ Sodium (Chloride) 50 mls @ 100 mls/hr IV Q12H [facility] Last Admin: 05/07/20 23:49 Dose: 100 mls/hr Documented by: Levofloxacin/Dextrose 750 mg/ (Premix) 150 mls @ 100 mls/hr IV Q24H [facility] Last Admin: 05/04/20 09:31 Dose: 100 mls/hr Documented by: Dextrose/Water (Dextrose 5% In Water) 1,000 mls @ 75 mls/hr IV ASDIRECTED [facility] Last Admin: 05/05/20 23:37 Dose: 75 mls/hr Documented by: Levofloxacin/Dextrose 750 mg/ (Premix) 150 mls @ 100 mls/hr IV Q48H [facility] Last Admin: 05/08/20 11:39 Dose: Not Given Documented by: Doxycycline Hyclate 100 mg/ (Sodium Chloride) 100 mls @ 100 mls/hr IV Q12H [facility] Stop: 05/11/20 08:00 Last Admin: 05/11/20 00:30 Dose: 100 mls/hr Documented by: Cefepime HCl 2 gm/ Sodium (Chloride) 50 mls @ 100 mls/hr IV Q24H [facility] Stop: 05/11/20 08:00 Last Admin: 05/10/20 15:15 Dose: 100 mls/hr Documented by: Magnesium Sulfate (Magnesium Sulfate In Water 2 Gm/50 Ml) 2 gm in 50 mls @ 25 mls/hr IV Q6H [facility] Stop: 05/09/20 16:59 Last Admin: 05/09/20 15:00 Dose: 25 mls/hr Documented by: Insulin Human Lispro (Humalog) 0 unit SUBCUT QIDACANDBED [facility]; Protocol Last Admin: 05/01/20 12:38 Dose: Not Given Documented by: Insulin Human Lispro (Humalog) 0 unit SUBCUT QIDACANDBED [facility]; Protocol Last Admin: 05/11/20 07:29 Dose: 3 units Documented by: Losartan Potassium (Cozaar) 50 mg PO DAILY [facility] Methylprednisolone Sodium Succinate (Solu-Medrol) 40 mg IVPUSH Q8H [facility] Last Admin: 05/11/20 02:12 Dose: 40 mg Documented by: Nitroglycerin (Nitrostat) 0.4 mg SL ONETIME ONE Stop: 04/28/20 14:15 Last Admin: 04/28/20 14:22 Dose: 0.4 mg Documented by: Pantoprazole Sodium (Protonix) 40 mg PO DAILY@0730 [facility] Last Admin: 05/01/20 08:21 Dose: 40 mg Documented by: Prednisone (Prednisone) 40 mg PO ONETIME ONE Stop: 05/11/20 09:31 Last Admin: 05/11/20 09:29 Dose: 40 mg Documented by: Sodium Chloride (Saline Flush) 10 ml FLUSH ASDIRECTED PRN PRN Reason: Keep Vein Open Last Admin: 04/28/20 14:29 Dose: 10 ml Documented by: Sodium Polystyrene Sulfonate (Kayexalate) 30 gm PO ONETIME ONE Stop: 05/02/20 05:55 Last Admin: 05/02/20 07:08 Dose: 30 gm Documented by: Spironolactone (Aldactone) 25 mg PO DAILY [facility] Last Admin: 04/29/20 10:17 Dose: Not Given Documented by: - Exam Quality Assessment: Supplemental Oxygen General: Alert, Oriented, Cooperative, No Acute Distress Lungs: Normal Respiratory Effort, Crackles (mild diffuse), Rhonchi (mild upper resp ). No: Wheezing Cardiovascular: Regular Rate, Regular Rhythm GI/Abdominal Exam: Soft, No Distention Extremities: Pedal Edema, Other (both lower legs wrapped from foot to knee ). No: Increased Warmth Skin: Warm, Dry Psy/Mental Status: Alert, Normal Affect - Patient Data Lab Results Last 24 hrs: Laboratory Results - last 24 hr 05/10/20 05/10/20 05/10/20 Range/Units 05:45 11:30 16:28 WBC (4.5-11.0) K/uL RBC (3.30-5.50) M/uL Hgb 7.8 L (12.0-15.0) g/dL Hct (36.0-48.0) % MCV (80-98) fL MCH (27-31) pg MCHC (32-36) % Plt Count (150-400) K/uL Neut % (Auto) (36-66) % Lymph % (Auto) (24-44) % [place] % (Auto) (2-6) % Eos % (Auto) (2-4) % Baso % (Auto) (0-1) % Sodium (140-148) mmol/L Potassium (3.6-5.2) mmol/L Chloride (100-108) mmol/L Carbon Dioxide (21-32) mmol/L Anion Gap (5.0-14.0) mmol/L BUN (7-18) mg/dL Creatinine (0.6-1.0) mg/dL Est Cr Clr Drug Dosing mL/min Estimated GFR (MDRD) (>60) Glucose (74-106) mg/dL POC Glucose 225 H (74-106) MG/DL Calcium (8.5-10.1) mg/dL Crossmatch See Detail 05/10/20 05/10/20 05/10/20 Range/Units 16:28 16:30 21:00 WBC (4.5-11.0) K/uL RBC (3.30-5.50) M/uL Hgb (12.0-15.0) g/dL Hct (36.0-48.0) % MCV (80-98) fL MCH (27-31) pg MCHC (32-36) % Plt Count (150-400) K/uL Neut % (Auto) (36-66) % Lymph % (Auto) (24-44) % [place] % (Auto) (2-6) % Eos % (Auto) (2-4) % Baso % (Auto) (0-1) % Sodium (140-148) mmol/L Potassium 5.3 H (3.6-5.2) mmol/L Chloride (100-108) mmol/L Carbon Dioxide (21-32) mmol/L Anion Gap (5.0-14.0) mmol/L BUN (7-18) mg/dL Creatinine (0.6-1.0) mg/dL Est Cr Clr Drug Dosing mL/min Estimated GFR (MDRD) (>60) Glucose (74-106) mg/dL POC Glucose 204 H 349 H (74-106) MG/DL Calcium (8.5-10.1) mg/dL Crossmatch 05/11/20 05/11/20 05/11/20 Range/Units 05:00 05:00 07:30 WBC 2.5 L (4.5-11.0) K/uL RBC 2.87 L (3.30-5.50) M/uL Hgb 7.9 L (12.0-15.0) g/dL Hct 26.4 L (36.0-48.0) % MCV 92 (80-98) fL MCH 28 (27-31) pg MCHC 30 L (32-36) % Plt Count 92 L (150-400) K/uL Neut % (Auto) 88 H (36-66) % Lymph % (Auto) 10 L (24-44) % [place] % (Auto) 2 (2-6) % Eos % (Auto) 0 L (2-4) % Baso % (Auto) 0 (0-1) % Sodium 142 (140-148) mmol/L Potassium 5.3 H (3.6-5.2) mmol/L Chloride 105 (100-108) mmol/L Carbon Dioxide 31 (21-32) mmol/L Anion Gap 11.3 (5.0-14.0) mmol/L BUN 94 H* (7-18) mg/dL Creatinine 1.6 H (0.6-1.0) mg/dL Est Cr Clr Drug Dosing 24.55 mL/min Estimated GFR (MDRD) 32 L (>60) Glucose 256 H (74-106) mg/dL POC Glucose 298 H (74-106) MG/DL Calcium 7.6 L (8.5-10.1) mg/dL Crossmatch Result Diagrams: 05/11/20 05:00 05/11/20 05:00 Sepsis Event Note - Evaluation Sepsis Screening Result: No Definite Risk - Focused Exam Vital Signs: Vital Signs Temp Pulse Resp BP BP BP Pulse Ox 05/11/20 10:45 66 05/11/20 09:31 153/48 H 05/11/20 07:28 95 05/11/20 07:24 36.3 C 64 20 153/48 H 94 L 05/11/20 01:54 36.3 C 54 L 139/41 L 99 05/11/20 00:57 100 05/10/20 23:13 36.7 C 60 16 121/42 L 98 - Problem List & Annotations (1) Congestive heart failure SNOMED Code(s): 94478441 Code(s): I50.9 - HEART FAILURE, UNSPECIFIED Status: Acute Current Visit: Yes Qualifiers: Heart failure type: diastolic Heart failure chronicity: acute on chronic Qualified Code(s): I50.33 - Acute on chronic diastolic (congestive) heart failure (2) COPD (chronic obstructive pulmonary disease) SNOMED Code(s): 19775536 Code(s): J44.9 - CHRONIC OBSTRUCTIVE PULMONARY DISEASE, UNSPECIFIED Status: Chronic Priority: Low Current Visit: No Qualifiers: COPD type: unspecified COPD Qualified Code(s): J44.9 - Chronic obstructive pulmonary disease, unspecified (3) 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 SNOMED Code(s): 689418018 Code(s): I27.22 - PULMONARY HYPERTENSION DUE TO LEFT HEART DISEASE Status: Chronic Current Visit: No (4) Diabetes mellitus, type 2 SNOMED Code(s): 27535179 Code(s): E11.9 - TYPE 2 DIABETES MELLITUS WITHOUT COMPLICATIONS Status: Chronic Priority: Low Current Visit: No Qualifiers: Diabetes mellitus parts counterman insulin use: without parts counterman use Diabetes mellitus complication status: with other specified complication Qualified Code(s): E11.69 - Type 2 diabetes mellitus with other specified complication (5) Rheumatoid arthritis SNOMED Code(s): 96631432 Code(s): M06.9 - RHEUMATOID ARTHRITIS, UNSPECIFIED Status: Chronic Current Visit: No Qualifiers: Rheumatoid arthritis location: unspecified site Rheumatoid factor presence: unspecified presence Qualified Code(s): M06.9 - Rheumatoid arthritis, unspecified (6) CKD (chronic kidney disease), stage III SNOMED Code(s): 654440214 Code(s): N18.30 - CHRONIC KIDNEY DISEASE, STAGE 3 UNSPECIFIED Status: [facility] Current Visit: Yes Qualifiers: Chronic kidney disease stage 3 subtype: stage 3a (GFR 45-59) Qualified Code(s): N18.31 - Chronic kidney disease, stage 3a - Problem List Review Problem List Initiated/Reviewed/Updated: Yes - My Orders Last 24 Hours: My Active Orders 05/11/20 11:00 Insulin Lispro [HumaLOG] See Protocol SUBCUT QIDACANDBED 05/11/20 21:00 amLODIPine [Norvasc] 5 mg PO BID 05/12/20 05:00 BASIC METABOLIC PANEL,BMP [CHEM] Timed HGB [HEMOGLOBIN] [HEME] Timed 05/12/20 08:00 predniSONE 20 mg PO WITHBREAKFAST predniSONE 30 mg PO WITHBREAKFAST - Plan Plan:: ASSESSMENT AND PLAN - Persistent pulmonary infiltrates with acute on chronic respiratory failure- continued hypoxia and requiring high levels of supplemental oxygen prognosis still very guarded but seems to be doing a little better today. No strong support for infection at this time and antibiotics have been discontinued. She does seem to be getting a little better with steroids. I think the biggest contributor is her recent Covid infection but this is multifactorial with pulmonary hypertension, COPD and diastolic heart failure. -Antibiotics were discontinued -Supplemental oxygen as needed -Noninvasive positive pressure ventilation as tolerated -Steroids as below -Lorazepam and morphine as needed for comfort -Transition to comfort care if condition declines further Diastolic congestive heart failure-moderate diastolic dysfunction noted on echocardiogram with evidence of severe asymmetric septal hypertrophy. Also noted was elevation in right-sided pressures. Intravascular volume status appropriate but she has a fair amount of edema. -Hold diuretic therapy again today -Increase amlodipine to 5 mg twice daily -Strict intake and output monitoring -Physical therapy Acute kidney injury-creatinine has increased mildly over the last 24 hours -PPI discontinued -Labs in the morning Palliative care-she wants to continue current management but would also like to be treated for comfort. -Morphine and lorazepam as needed for comfort Hyperkalemia-mild and persistent -Reassess potassium level in a.m. Anemia-hemoglobin above 8 after transfusion yesterday. -Labs in the morning Severe oxygen dependent COPD-complicated by severe pulmonary hypertension and persistent bilateral pulmonary infiltrates related to recent Covid infection and ARDS. -Calcium channel beryl initiated as above -Scheduled and as needed nebulizers -Transition to prednisone today with slow taper Type 2 diabetes mellitus-sugars elevated now that she is back on steroids. -High-dose sliding scale today -Consider long-acting insulin tomorrow Rheumatoid arthritis-stable. -Hold hydroxychloroquine Chronic lower extremity venous stasis ulcers-these were present on admission. Currently being managed with pressure wrappings and dressing changes daily. Maintenance issues - - DVT prophylaxis -apixaban - GI prophylaxis -PPI discontinued as above - Nutrition -consistent carbohydrates Disposition -I would anticipate discharge with subacute rehab at [facility] if she survives the hospital stay. Prognosis is still poor and quite guarded with her multitude of medical problems and recent Covid infection. Primary care physician -Dr. Es Stewart
[2020-05-11] MEDS: Morphine 10 MG/0.5 ML Oral Syringe PO PRN (17:39)
[2020-05-11] MEDS: Melatonin 3 MG Tab PO SCH (20:55)
[2020-05-11] MEDS: Insulin Glargine,Human Rec. Analog 100 Units/ML 3 ML Pen SUBCUT SCH (21:12)
[2020-05-12] MEDS: Diclofenac Sodium 1% Gel 100 GM Tube TOP SCH ×4 (06:11→23:12)
[2020-05-12] MEDS: Albuterol/Ipratropium 3.0-0.5 MG/3 ML Neb Soln NEB SCH ×2 (06:59→10:40)
[2020-05-12] MEDS ORDERED: predniSONE 20 MG Tab PO SCH ×2 (08:00)
[2020-05-12] MEDS: Insulin Lispro 100 Unit/ML 3 ML KwikPen SUBCUT SCH ×4 (08:08→21:23)
[2020-05-12] MEDS: Nystatin Topical Powder 15 GM Bottle TOP SCH ×3 (08:09→23:11)
[2020-05-12] MEDS: predniSONE 10 MG, predniSONE 20 MG PO SCH ×2 (08:09)
[2020-05-12] MEDS: rOPINIRole 0.5 MG Tab PO SCH ×2 (08:09→23:10)
[2020-05-12] MEDS: amLODIPine 5 MG Tab PO SCH ×2 (08:10→20:08)
[2020-05-12] MEDS: Magnesium Oxide 400 MG Tab PO SCH ×2 (08:10→20:07)
[2020-05-12] MEDS: Apixaban 2.5 MG Tab PO SCH ×2 (08:10→20:07)
[2020-05-12] MEDS: Gabapentin 300 MG Cap PO SCH ×2 (08:11→20:08)
[2020-05-12] MEDS ORDERED: Levalbuterol HCl 1.25 MG/3 ML Neb NEB PRN (12:05)
--- NOTE | 2020-05-12 12:07 | PCM.PN ---
- General Info Date of Service: 05/12/20 Subjective Update: There were no acute events overnight. Patient has been stable on 10 L of supplemental oxygen. She feels more short of breath than baseline but similar to yesterday. Has an occasional cough. Still has significant swelling of both lower legs and the right lower leg is weeping. She has not had any fevers. Creatinine remains elevated from baseline and potassium is mildly elevated. BUN significantly elevated and slightly higher again today. Patient is frustrated with the ups and downs. She tells me that half of her family is encouraging her to keep fighting and receiving treatment at half of her family is encouraging her to come home with hospice. We talked about some additional medication changes and she is willing to allow a little more time but feels that if she does not make improvements in the next 48 hours she would like to go home with noemi gonzalez. Functional Status: Reports: Pain Controlled, Tolerating Diet - Review of Systems General: Reports: Weakness. Denies: Fever Pulmonary: Reports: Shortness of Breath - Patient Data Vitals - Most Recent: Last Vital Signs Temp 36.4 C 05/12/20 11:00 Pulse 71 05/12/20 11:00 Resp 18 05/12/20 11:00 BP 169/49 H 05/12/20 11:00 Pulse Ox 94 L 05/12/20 11:00 Weight - Most Recent: 87.407 kg I&O - Last 24 Hours: Intake & Output 05/11/20 05/12/20 05/12/20 22:59 06:59 14:59 Intake Total 150 400 518 Output Total 100 100 Balance 50 300 518 Lab Results Last 24 Hours: Laboratory Results - last 24 hr 05/10/20 05/11/20 05/11/20 Range/Units 05:45 16:30 21:00 Hgb (12.0-15.0) g/dL Sodium (140-148) mmol/L Potassium (3.6-5.2) mmol/L Chloride (100-108) mmol/L Carbon Dioxide (21-32) mmol/L Anion Gap (5.0-14.0) mmol/L BUN (7-18) mg/dL Creatinine (0.6-1.0) mg/dL Est Cr Clr Drug Dosing mL/min Estimated GFR (MDRD) (>60) Glucose (74-106) mg/dL POC Glucose 223 H 225 H (74-106) MG/DL Calcium (8.5-10.1) mg/dL Blood Type A POSITIVE Gel Antibody Screen Negative Crossmatch See Detail 05/12/20 05/12/20 05/12/20 Range/Units 04:10 04:10 07:25 Hgb 7.2 L (12.0-15.0) g/dL Sodium 142 (140-148) mmol/L Potassium 5.7 H (3.6-5.2) mmol/L Chloride 106 (100-108) mmol/L Carbon Dioxide 31 (21-32) mmol/L Anion Gap 10.7 (5.0-14.0) mmol/L BUN 107 H* (7-18) mg/dL Creatinine 1.8 H (0.6-1.0) mg/dL Est Cr Clr Drug Dosing 21.82 mL/min Estimated GFR (MDRD) 28 L (>60) Glucose 192 H (74-106) mg/dL POC Glucose 197 H (74-106) MG/DL Calcium 7.8 L (8.5-10.1) mg/dL Blood Type Gel Antibody Screen Crossmatch 05/12/20 Range/Units 11:25 Hgb (12.0-15.0) g/dL Sodium (140-148) mmol/L Potassium (3.6-5.2) mmol/L Chloride (100-108) mmol/L Carbon Dioxide (21-32) mmol/L Anion Gap (5.0-14.0) mmol/L BUN (7-18) mg/dL Creatinine (0.6-1.0) mg/dL Est Cr Clr Drug Dosing mL/min Estimated GFR (MDRD) (>60) Glucose (74-106) mg/dL POC Glucose 217 H (74-106) MG/DL Calcium (8.5-10.1) mg/dL Blood Type Gel Antibody Screen Crossmatch Med Orders - Current: Current Medications Acetaminophen (Tylenol) 650 mg PO Q4H PRN PRN Reason: Pain (Mild 1-3)/fever Hydrocodone Bitart/Acetaminophen ([place] 325-5 Mg) 1 tab PO Q4H PRN PRN Reason: Pain (moderate 4-6) Last Admin: 05/08/20 05:59 Dose: 1 tab Documented by: Albuterol/Ipratropium (Duoneb 3.0-0.5 Mg/3 Ml) 3 ml NEB QIDRT [facility] Last Admin: 05/12/20 10:40 Dose: 3 ml Documented by: Amlodipine Besylate (Norvasc) 5 mg PO BID [facility] Last Admin: 05/12/20 08:10 Dose: 5 mg Documented by: Apixaban (Eliquis) 2.5 mg PO BID [facility] Last Admin: 05/12/20 08:10 Dose: 2.5 mg Documented by: Artificial Tears (Genteal Mild To Moderate Ophth Soln) 0 ml EYEBOTH QID PRN PRN Reason: DRY EYES Benzocaine/Menthol (Cepacol Sore Throat) 1 lozenge MUCMEM Q2H PRN PRN Reason: Sore Throat Dextrose (Glutose 15) 15 gm PO ONETIME PRN PRN Reason: Hypoglycemia Dextrose/Water (Dextrose 50% In Water) 50 ml IV ONETIME PRN PRN Reason: Hypoglycemia Diclofenac Sodium (Voltaren 1% Gel) 0 gm TOP QID [facility] Last Admin: 05/12/20 10:00 Dose: Not Given Documented by: Gabapentin (Neurontin) 300 mg PO BID [facility] Last Admin: 05/12/20 08:11 Dose: 300 mg Documented by: Insulin Glargine (Lantus Solostar) 15 units SUBCUT BEDTIME [facility] Last Admin: 05/11/20 21:12 Dose: 15 units Documented by: Insulin Human Lispro (Humalog) 0 unit SUBCUT QIDACANDBED [facility]; Protocol Last Admin: 05/12/20 08:08 Dose: 3 units Documented by: Lorazepam (Ativan) 0.5 mg IVPUSH Q4H PRN PRN Reason: Nausea/Vomiting Last Admin: 05/04/20 21:30 Dose: 0.5 mg Documented by: Lorazepam (Ativan Oral Concentrate 1mg/0.5 Ml U/D) 0.5 mg PO Q2H PRN PRN Reason: Anxiety Last Admin: 05/05/20 14:16 Dose: 0.5 mg Documented by: Magnesium Hydroxide (Milk Of Magnesia) 30 ml PO Q12H PRN PRN Reason: Constipation Magnesium Oxide (Magnesium Oxide) 400 mg PO BID [facility] Last Admin: 05/12/20 08:10 Dose: 400 mg Documented by: Melatonin (Melatonin) 9 mg PO BEDTIME [facility] Last Admin: 05/11/20 20:55 Dose: 9 mg Documented by: Morphine Sulfate (Morphine 10 Mg/0.5 Ml Oral Syringe) 2.5 mg PO Q2H PRN PRN Reason: Dyspnea Last Admin: 05/11/20 17:39 Dose: 2.5 mg Documented by: Nystatin (Nystop) 0 gm TOP TID [facility] Last Admin: 05/12/20 08:09 Dose: 1 applic Documented by: Ondansetron HCl (Zofran) 4 mg IV Q6H PRN PRN Reason: Nausea/Vomiting Last Admin: 04/29/20 12:36 Dose: 4 mg Documented by: Ondansetron HCl (Zofran Odt) 4 mg PO Q6H PRN PRN Reason: Nausea able to take PO Prednisone 10 mg/ Prednisone (20 mg) 30 mg PO DAILY [facility] Last Admin: 05/12/20 08:09 Dose: 30 mg Documented by: Ropinirole HCl (Requip) 1.5 mg PO BID [facility] Last Admin: 05/12/20 08:09 Dose: 1.5 mg Documented by: Senna/Docusate Sodium (Senna Plus) 1 tab PO BID PRN PRN Reason: Constipation Sodium Chloride (Saline Flush) 10 ml FLUSH ASDIRECTED PRN PRN Reason: Keep Vein Open Last Admin: 04/28/20 14:28 Dose: 10 ml Documented by: Discontinued Medications Albuterol (Proventil Neb Soln) 2.5 mg NEB Q4H PRN PRN Reason: Shortness Of Breath/wheezing Last Admin: 05/03/20 14:05 Dose: 2.5 mg Documented by: Amlodipine Besylate (Norvasc) 5 mg PO DAILY [facility] Last Admin: 05/11/20 09:31 Dose: 5 mg Documented by: Bumetanide (Bumex) 1 mg IVPUSH ONETIME ONE Stop: 04/28/20 14:13 Last Admin: 04/28/20 14:23 Dose: 1 mg Documented by: Bumetanide (Bumex) 2 mg IVPUSH ONETIME ONE Stop: 04/29/20 07:01 Last Admin: 04/29/20 06:32 Dose: 2 mg Documented by: Bumetanide (Bumex) 2 mg IVPUSH ONETIME ONE Stop: 05/02/20 10:35 Last Admin: 05/02/20 11:43 Dose: 2 mg Documented by: Bumetanide (Bumex) 2 mg IVPUSH ONETIME ONE Stop: 05/03/20 13:01 Last Admin: 05/03/20 14:05 Dose: 2 mg Documented by: Bumetanide (Bumex) 2 mg IVPUSH BID [facility] Stop: 05/04/20 21:01 Last Admin: 05/04/20 20:02 Dose: 2 mg Documented by: Bumetanide (Bumex) 1 mg IVPUSH ONETIME ONE Stop: 05/06/20 12:16 Last Admin: 05/06/20 12:17 Dose: 1 mg Documented by: Bumetanide (Bumex) 2 mg IVPUSH ONETIME ONE Stop: 05/07/20 11:01 Last Admin: 05/07/20 11:18 Dose: 2 mg Documented by: Bumetanide (Bumex) 1 mg IVPUSH ONETIME ONE Stop: 05/08/20 10:31 Last Admin: 05/08/20 11:15 Dose: 1 mg Documented by: Bumetanide (Bumex) 2 mg IVPUSH ONETIME ONE Stop: 05/09/20 09:46 Last Admin: 05/09/20 10:09 Dose: 2 mg Documented by: Carvedilol (Coreg) 3.125 mg PO BID [facility] Last Admin: 04/28/20 20:53 Dose: 3.125 mg Documented by: Doxycycline Hyclate (Vibramycin) 100 mg PO BID [facility] Last Admin: 05/04/20 08:52 Dose: 100 mg Documented by: Gabapentin (Neurontin) 300 mg PO BID@0800,1200 [facility] Last Admin: 05/01/20 08:21 Dose: 300 mg Documented by: Gabapentin (Neurontin) 600 mg PO BEDTIME [facility] Last Admin: 04/30/20 21:28 Dose: 600 mg Documented by: Hydroxychloroquine Sulfate (Plaquenil) 200 mg PO DAILY [facility] Last Admin: 05/11/20 09:30 Dose: 200 mg Documented by: Sodium Chloride (Normal Saline) 1,000 mls @ 125 mls/hr IV ASDIRECTED [facility] Stop: 04/29/20 17:31 Last Admin: 04/29/20 11:05 Dose: 125 mls/hr Documented by: Sodium Chloride (Normal Saline) 500 mls @ 125 mls/hr IV ASDIRECTED ONE Stop: 04/30/20 13:59 Last Admin: 04/30/20 10:31 Dose: 125 mls/hr Documented by: Sodium Chloride (Normal Saline) 500 mls @ 125 mls/hr IV ONETIME ONE Stop: 05/01/20 09:48 Last Admin: 05/01/20 06:06 Dose: 125 mls/hr Documented by: Albumin Human (Albumin 25%) 25 gm in 100 mls @ 25 mls/hr IV Q6H [facility] Stop: 05/04/20 08:59 Last Admin: 05/04/20 05:19 Dose: 25 mls/hr Documented by: Meropenem 1 gm/ Sodium (Chloride) 50 mls @ 100 mls/hr IV Q12H [facility] Last Admin: 05/07/20 23:49 Dose: 100 mls/hr Documented by: Levofloxacin/Dextrose 750 mg/ (Premix) 150 mls @ 100 mls/hr IV Q24H [facility] Last Admin: 05/04/20 09:31 Dose: 100 mls/hr Documented by: Dextrose/Water (Dextrose 5% In Water) 1,000 mls @ 75 mls/hr IV ASDIRECTED [facility] Last Admin: 05/05/20 23:37 Dose: 75 mls/hr Documented by: Levofloxacin/Dextrose 750 mg/ (Premix) 150 mls @ 100 mls/hr IV Q48H [facility] Last Admin: 05/08/20 11:39 Dose: Not Given Documented by: Doxycycline Hyclate 100 mg/ (Sodium Chloride) 100 mls @ 100 mls/hr IV Q12H [facility] Stop: 05/11/20 08:00 Last Admin: 05/11/20 00:30 Dose: 100 mls/hr Documented by: Cefepime HCl 2 gm/ Sodium (Chloride) 50 mls @ 100 mls/hr IV Q24H [facility] Stop: 05/11/20 08:00 Last Admin: 05/10/20 15:15 Dose: 100 mls/hr Documented by: Magnesium Sulfate (Magnesium Sulfate In Water 2 Gm/50 Ml) 2 gm in 50 mls @ 25 mls/hr IV Q6H [facility] Stop: 05/09/20 16:59 Last Admin: 05/09/20 15:00 Dose: 25 mls/hr Documented by: Insulin Human Lispro (Humalog) 0 unit SUBCUT QIDACANDBED [facility]; Protocol Last Admin: 05/01/20 12:38 Dose: Not Given Documented by: Insulin Human Lispro (Humalog) 0 unit SUBCUT QIDACANDBED [facility]; Protocol Last Admin: 05/11/20 07:29 Dose: 3 units Documented by: Losartan Potassium (Cozaar) 50 mg PO DAILY [facility] Methylprednisolone Sodium Succinate (Solu-Medrol) 40 mg IVPUSH Q8H [facility] Last Admin: 05/11/20 02:12 Dose: 40 mg Documented by: Nitroglycerin (Nitrostat) 0.4 mg SL ONETIME ONE Stop: 04/28/20 14:15 Last Admin: 04/28/20 14:22 Dose: 0.4 mg Documented by: Pantoprazole Sodium (Protonix) 40 mg PO DAILY@0730 [facility] Last Admin: 05/01/20 08:21 Dose: 40 mg Documented by: Prednisone (Prednisone) 40 mg PO ONETIME ONE Stop: 05/11/20 09:31 Last Admin: 05/11/20 09:29 Dose: 40 mg Documented by: Sodium Chloride (Saline Flush) 10 ml FLUSH ASDIRECTED PRN PRN Reason: Keep Vein Open Last Admin: 04/28/20 14:29 Dose: 10 ml Documented by: Sodium Polystyrene Sulfonate (Kayexalate) 30 gm PO ONETIME ONE Stop: 05/02/20 05:55 Last Admin: 05/02/20 07:08 Dose: 30 gm Documented by: Spironolactone (Aldactone) 25 mg PO DAILY [facility] Last Admin: 04/29/20 10:17 Dose: Not Given Documented by: - Exam Quality Assessment: Supplemental Oxygen General: Alert, Oriented, Cooperative, No Acute Distress Lungs: Normal Respiratory Effort, Crackles (moderate diffuse), Wheezing (mild diffuse end exp) Cardiovascular: Regular Rate, Regular Rhythm GI/Abdominal Exam: Soft, No Distention Extremities: Pedal Edema, Other (both lower legs wrapped with KONG which are saturated from weeping ) Skin: Warm, Dry Psy/Mental Status: Alert, Normal Affect - Patient Data Lab Results Last 24 hrs: Laboratory Results - last 24 hr 05/10/20 05/11/20 05/11/20 Range/Units 05:45 16:30 21:00 Hgb (12.0-15.0) g/dL Sodium (140-148) mmol/L Potassium (3.6-5.2) mmol/L Chloride (100-108) mmol/L Carbon Dioxide (21-32) mmol/L Anion Gap (5.0-14.0) mmol/L BUN (7-18) mg/dL Creatinine (0.6-1.0) mg/dL Est Cr Clr Drug Dosing mL/min Estimated GFR (MDRD) (>60) Glucose (74-106) mg/dL POC Glucose 223 H 225 H (74-106) MG/DL Calcium (8.5-10.1) mg/dL Blood Type A POSITIVE Gel Antibody Screen Negative Crossmatch See Detail 05/12/20 05/12/20 05/12/20 Range/Units 04:10 04:10 07:25 Hgb 7.2 L (12.0-15.0) g/dL Sodium 142 (140-148) mmol/L Potassium 5.7 H (3.6-5.2) mmol/L Chloride 106 (100-108) mmol/L Carbon Dioxide 31 (21-32) mmol/L Anion Gap 10.7 (5.0-14.0) mmol/L BUN 107 H* (7-18) mg/dL Creatinine 1.8 H (0.6-1.0) mg/dL Est Cr Clr Drug Dosing 21.82 mL/min Estimated GFR (MDRD) 28 L (>60) Glucose 192 H (74-106) mg/dL POC Glucose 197 H (74-106) MG/DL Calcium 7.8 L (8.5-10.1) mg/dL Blood Type Gel Antibody Screen Crossmatch 05/12/20 Range/Units 11:25 Hgb (12.0-15.0) g/dL Sodium (140-148) mmol/L Potassium (3.6-5.2) mmol/L Chloride (100-108) mmol/L Carbon Dioxide (21-32) mmol/L Anion Gap (5.0-14.0) mmol/L BUN (7-18) mg/dL Creatinine (0.6-1.0) mg/dL Est Cr Clr Drug Dosing mL/min Estimated GFR (MDRD) (>60) Glucose (74-106) mg/dL POC Glucose 217 H (74-106) MG/DL Calcium (8.5-10.1) mg/dL Blood Type Gel Antibody Screen Crossmatch Result Diagrams: 05/12/20 04:10 05/12/20 04:10 Sepsis Event Note - Evaluation Sepsis Screening Result: No Definite Risk - Focused Exam Vital Signs: Vital Signs Temp Temp Pulse Pulse Resp BP BP 05/12/20 11:00 36.4 C 71 18 05/12/20 09:30 36.4 C 58 L 22 H 05/12/20 09:00 36.4 C 58 L 20 05/12/20 08:30 36.4 C 58 L 20 05/12/20 08:10 145/50 H 05/12/20 08:00 36.4 C 61 22 H 05/12/20 07:30 36.2 C 61 22 H 05/12/20 07:26 05/12/20 07:15 36.2 C 58 L 22 H 151/41 H 05/12/20 07:03 36.2 C 59 L 22 H 05/12/20 06:48 36.5 C 51 L 16 05/12/20 06:33 36.5 C 56 L 57 L 18 05/12/20 04:15 36.5 C 55 L 18 05/12/20 01:00 BP Pulse Ox 05/12/20 11:00 169/49 H 94 L 05/12/20 09:30 150/57 H 05/12/20 09:00 156/46 H 05/12/20 08:30 149/55 H 05/12/20 08:10 05/12/20 08:00 145/50 H 05/12/20 07:30 135/44 L 05/12/20 07:26 100 05/12/20 07:15 05/12/20 07:03 151/47 H 05/12/20 06:48 156/42 H 96 05/12/20 06:33 155/58 H 05/12/20 04:15 122/37 L 95 05/12/20 01:00 96 - Problem List & Annotations (1) Congestive heart failure SNOMED Code(s): 11512548 Code(s): I50.9 - HEART FAILURE, UNSPECIFIED Status: Acute Current Visit: Yes Qualifiers: Heart failure type: diastolic Heart failure chronicity: acute on chronic Qualified Code(s): I50.33 - Acute on chronic diastolic (congestive) heart failure (2) COPD (chronic obstructive pulmonary disease) SNOMED Code(s): 70850581 Code(s): J44.9 - CHRONIC OBSTRUCTIVE PULMONARY DISEASE, UNSPECIFIED Status: Chronic Priority: Low Current Visit: No Qualifiers: COPD type: unspecified COPD Qualified Code(s): J44.9 - Chronic obstructive pulmonary disease, unspecified (3) 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 SNOMED Code(s): 240330637 Code(s): I27.22 - PULMONARY HYPERTENSION DUE TO LEFT HEART DISEASE Status: Chronic Current Visit: No (4) Diabetes mellitus, type 2 SNOMED Code(s): 36264200 Code(s): E11.9 - TYPE 2 DIABETES MELLITUS WITHOUT COMPLICATIONS Status: Chronic Priority: Low Current Visit: No Qualifiers: Diabetes mellitus care home insulin use: without 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 marine terminal 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 Diabetes mellitus complication status: with other specified complication Qualified Code(s): E11.69 - Type 2 diabetes mellitus with other specified complication (5) Rheumatoid arthritis SNOMED Code(s): 02758461 Code(s): M06.9 - RHEUMATOID ARTHRITIS, UNSPECIFIED Status: Chronic Current Visit: No Qualifiers: Rheumatoid arthritis location: unspecified site Rheumatoid factor presence: unspecified presence Qualified Code(s): M06.9 - Rheumatoid arthritis, unspecified (6) CKD (chronic kidney disease), stage III SNOMED Code(s): 176272350 Code(s): N18.30 - CHRONIC KIDNEY DISEASE, STAGE 3 UNSPECIFIED Status: Chronic Current Visit: Yes Qualifiers: Chronic kidney disease stage 3 subtype: stage 3a (GFR 45-59) Qualified Code(s): N18.31 - Chronic kidney disease, stage 3a - Problem List Review Problem List Initiated/Reviewed/Updated: Yes - My Orders Last 24 Hours: My Active Orders 05/11/20 21:00 Insulin Glarg,Human.Rec.Analog [LantUS Solostar] 15 units SUBCUT BEDTIME amLODIPine [Norvasc] 5 mg PO BID 05/12/20 05:32 Transfuse Red Blood Cells [COMM] Routine 05/12/20 09:00 Prednisone 30 mg PO DAILY 05/12/20 12:05 RT Aerosol Therapy [RC] ASDIRECTED levalbuterol HCL [Xopenex] 1.25 mg NEB Q2H PRN 05/12/20 15:00 levalbuterol HCL [Xopenex] 1.25 mg NEB QIDRT 05/13/20 05:00 CBC W/O DIFF,HEMOGRAM [HEME] Timed (1) COMPREHENSIVE METABOLIC PN,CMP [CHEM] Timed CRP [C-REACTIVE PROTEIN] [CHEM] Timed D-DIMER QUANTITATIVE [COAG] Timed MAGNESIUM [CHEM] Timed - Plan Plan:: ASSESSMENT AND PLAN - Persistent pulmonary infiltrates with acute on chronic respiratory failure- continued hypoxia and requiring high levels of supplemental oxygen prognosis still very guarded but seems to be doing a little better the past couple of days. No evidence for pulmonary infection. Patient is frustrated with the du ration of difficulties and lack of improvement. Family conference was offered, the patient would like to talk to family about whether or not they would like to participate. -Supplemental oxygen as needed -Noninvasive positive pressure ventilation as tolerated -Steroids as below -Lorazepam and morphine as needed for comfort -Transition to comfort care if condition declines further Diastolic congestive heart failure-moderate diastolic dysfunction noted on echocardiogram with evidence of severe asymmetric septal hypertrophy. Also noted was elevation in right-sided pressures. Intravascular volume status appropriate but she has a fair amount of edema. Declining kidney function limits ability to diurese. -Hold diuretic therapy again today -Continue amlodipine to 5 mg twice daily -Strict intake and output monitoring -Physical therapy Acute kidney injury-creatinine has increased mildly each of the last several days. This could represent interstitial nephritis type picture with hyperkale rena and elevated BUN. -Discontinue hydroxychloroquine -Labs in the morning Palliative care-she wants to continue current management but would also like to be treated for comfort. -Morphine and lorazepam as needed for comfort Hyperkalemia-mild and persistent -Reassess potassium level in a.m. Anemia-hemoglobin down to around 7 again today. She did receive 1 unit of blood this morning. -Labs in the morning Severe oxygen dependent COPD-complicated by severe pulmonary hypertension and persistent bilateral pulmonary infiltrates related to recent Covid infection and ARDS. -Calcium channel beryl initiated as above -Scheduled and as needed nebulizers changing to(Xopenex today) -Transition to prednisone today with slow taper Type 2 diabetes mellitus-sugars elevated now that she is back on steroids. -High-dose sliding scale today -Continue long-acting insulin, titrate as needed Rheumatoid arthritis-stable. -Hold hydroxychloroquine Chronic lower extremity venous stasis ulcers-these were present on admission. Currently being managed with pressure wrappings and dressing changes daily. Maintenance issues - - DVT prophylaxis -apixaban - GI prophylaxis -PPI discontinued as above - Nutrition -consistent carbohydrates Disposition -I would anticipate discharge with subacute rehab at [facility] if she survives the hospital stay. Prognosis is still poor and quite guarded with her multitude of medical problems and recent Covid infection. Andrew Mojica MD
[2020-05-12] MEDS: Levalbuterol HCl 1.25 MG/3 ML Neb NEB SCH ×2 (14:44→23:15)
[2020-05-12] MEDS: Melatonin 3 MG Tab PO SCH (20:08)
[2020-05-12] MEDS: Insulin Glargine,Human Rec. Analog 100 Units/ML 3 ML Pen SUBCUT SCH (21:23)
[2020-05-12] MEDS: Acetaminophen/HYDROcodone 325-5 MG Tab PO PRN (23:08)
[2020-05-12] MEDS: Morphine 10 MG/0.5 ML Oral Syringe PO PRN (23:08)
[2020-05-13] MEDS: Diclofenac Sodium 1% Gel 100 GM Tube TOP SCH ×4 (06:58→21:35)
[2020-05-13] MEDS: Levalbuterol HCl 1.25 MG/3 ML Neb NEB SCH ×4 (07:00→21:35)
[2020-05-13] MEDS: Insulin Lispro 100 Unit/ML 3 ML KwikPen SUBCUT SCH ×4 (07:35→21:28)
[2020-05-13] MEDS: rOPINIRole 0.5 MG Tab PO SCH ×2 (08:25→21:35)
[2020-05-13] MEDS: Gabapentin 300 MG Cap PO SCH ×2 (08:25→21:31)
[2020-05-13] MEDS: predniSONE 10 MG, predniSONE 20 MG PO SCH ×2 (08:25)
[2020-05-13] MEDS: amLODIPine 5 MG Tab PO SCH ×2 (08:25→21:31)
[2020-05-13] MEDS: Nystatin Topical Powder 15 GM Bottle TOP SCH ×3 (08:26→21:34)
[2020-05-13] MEDS: Apixaban 2.5 MG Tab PO SCH ×2 (08:26→21:30)
[2020-05-13] MEDS: Magnesium Oxide 400 MG Tab PO SCH ×2 (08:26→21:31)
[2020-05-13] MEDS ORDERED: Sodium Polystyrene Sulfonate 15 GM/60 ML Susp 60 ML Bot PO ONE (09:30)
--- NOTE | 2020-05-13 10:34 | PCM.PN ---
- General Info Date of Service: 05/13/20 Subjective Update: There were no acute events overnight. Oxygenation is a little better today with a slightly smaller supplemental oxygen requirement. Shortness of breath is stab le per report. No cough. Appetite stable. Right lower leg still weeping but stable. Creatinine slightly higher and BUN is higher again today. We talked about potential treatment paths including ongoing management of her medical problems with the goal of improving her to the point she could go to rehab versus a transition to comfort care/hospice. She was interested in a hospice informational visit which will happen later today. We will have a small care conference tomorrow and decide further at that time. Functional Status: Reports: Pain Controlled, Tolerating Diet - Review of Systems General: Reports: Weakness Pulmonary: Reports: Shortness of Breath - Patient Data Vitals - Most Recent: Last Vital Signs Temp 36.4 C 05/13/20 07:00 Pulse 55 L 05/13/20 07:00 Resp 18 05/13/20 07:00 BP 133/38 L 05/13/20 08:25 Pulse Ox 96 05/13/20 07:25 Weight - Most Recent: 87.6 kg I&O - Last 24 Hours: Intake & Output 05/12/20 05/13/20 05/13/20 22:59 06:59 14:59 Intake Total 1600 200 300 Balance 1600 200 300 Lab Results Last 24 Hours: Laboratory Results - last 24 hr 05/12/20 05/12/20 05/12/20 Range/Units 11:25 16:13 21:18 WBC (4.5-11.0) K/uL RBC (3.30-5.50) M/uL Hgb (12.0-15.0) g/dL Hct (36.0-48.0) % MCV (80-98) fL MCH (27-31) pg MCHC (32-36) % Plt Count (150-400) K/uL D-Dimer, Quantitative (0.0-500.0) ng/mL Sodium (140-148) mmol/L Potassium (3.6-5.2) mmol/L Chloride (100-108) mmol/L Carbon Dioxide (21-32) mmol/L Anion Gap (5.0-14.0) mmol/L BUN (7-18) mg/dL Creatinine (0.6-1.0) mg/dL Est Cr Clr Drug Dosing mL/min Estimated GFR (MDRD) (>60) Glucose (74-106) mg/dL POC Glucose 217 H 246 H 211 H (74-106) MG/DL Calcium (8.5-10.1) mg/dL Magnesium (1.8-2.4) mg/dL Total Bilirubin (0.2-1.0) mg/dL AST (15-37) U/L ALT (12-78) U/L Alkaline Phosphatase (46-116) U/L C-Reactive Protein (0.0-0.3) mg/dL Total Protein (6.4-8.2) g/dL Albumin (3.4-5.0) g/dL Globulin (2.3-3.5) g/dL Albumin/Globulin Ratio (1.2-2.2) 05/13/20 05/13/20 05/13/20 Range/Units 04:00 04:00 04:00 WBC 4.3 L (4.5-11.0) K/uL RBC 3.02 L (3.30-5.50) M/uL Hgb 8.2 L (12.0-15.0) g/dL Hct 27.3 L (36.0-48.0) % MCV 90 (80-98) fL MCH 27 (27-31) pg MCHC 30 L (32-36) % Plt Count 99 L (150-400) K/uL D-Dimer, Quantitative 1531.65 H (0.0-500.0) ng/mL Sodium 140 (140-148) mmol/L Potassium 5.9 H (3.6-5.2) mmol/L Chloride 105 (100-108) mmol/L Carbon Dioxide 31 (21-32) mmol/L Anion Gap 9.9 (5.0-14.0) mmol/L BUN 117 H* (7-18) mg/dL Creatinine 2.0 H (0.6-1.0) mg/dL Est Cr Clr Drug Dosing 19.64 mL/min Estimated GFR (MDRD) 24 L (>60) Glucose 135 H (74-106) mg/dL POC Glucose (74-106) MG/DL Calcium 7.9 L (8.5-10.1) mg/dL Magnesium 2.8 H (1.8-2.4) mg/dL Total Bilirubin 0.6 D (0.2-1.0) mg/dL AST 37 (15-37) U/L ALT 33 (12-78) U/L Alkaline Phosphatase 68 (46-116) U/L C-Reactive Protein 0.38 H (0.0-0.3) mg/dL Total Protein 5.2 L (6.4-8.2) g/dL Albumin 2.1 L (3.4-5.0) g/dL Globulin 3.1 (2.3-3.5) g/dL Albumin/Globulin Ratio 0.7 L (1.2-2.2) 05/13/20 Range/Units 07:30 WBC (4.5-11.0) K/uL RBC (3.30-5.50) M/uL Hgb (12.0-15.0) g/dL Hct (36.0-48.0) % MCV (80-98) fL MCH (27-31) pg MCHC (32-36) % Plt Count (150-400) K/uL D-Dimer, Quantitative (0.0-500.0) ng/mL Sodium (140-148) mmol/L Potassium (3.6-5.2) mmol/L Chloride (100-108) mmol/L Carbon Dioxide (21-32) mmol/L Anion Gap (5.0-14.0) mmol/L BUN (7-18) mg/dL Creatinine (0.6-1.0) mg/dL Est Cr Clr Drug Dosing mL/min Estimated GFR (MDRD) (>60) Glucose (74-106) mg/dL POC Glucose 129 H (74-106) MG/DL Calcium (8.5-10.1) mg/dL Magnesium (1.8-2.4) mg/dL Total Bilirubin (0.2-1.0) mg/dL AST (15-37) U/L ALT (12-78) U/L Alkaline Phosphatase (46-116) U/L C-Reactive Protein (0.0-0.3) mg/dL Total Protein (6.4-8.2) g/dL Albumin (3.4-5.0) g/dL Globulin (2.3-3.5) g/dL Albumin/Globulin Ratio (1.2-2.2) Med Orders - Current: Current Medications Acetaminophen (Tylenol) 650 mg PO Q4H PRN PRN Reason: Pain (Mild 1-3)/fever Hydrocodone Bitart/Acetaminophen (Minerva 325-5 Mg) 1 tab PO Q4H PRN PRN Reason: Pain (moderate 4-6) Last Admin: 05/12/20 23:08 Dose: 1 tab Documented by: Amlodipine Besylate (Norvasc) 5 mg PO BID [facility] Last Admin: 05/13/20 08:25 Dose: 5 mg Documented by: Apixaban (Eliquis) 2.5 mg PO BID [facility] Last Admin: 05/13/20 08:26 Dose: 2.5 mg Documented by: Artificial Tears (Genteal Mild To Moderate Ophth Soln) 0 ml EYEBOTH QID PRN PRN Reason: DRY EYES Benzocaine/Menthol (Cepacol Sore Throat) 1 lozenge MUCMEM Q2H PRN PRN Reason: Sore Throat Dextrose (Glutose 15) 15 gm PO ONETIME PRN PRN Reason: Hypoglycemia Dextrose/Water (Dextrose 50% In Water) 50 ml IV ONETIME PRN PRN Reason: Hypoglycemia Diclofenac Sodium (Voltaren 1% Gel) 0 gm TOP QID [facility] Last Admin: 05/13/20 09:57 Dose: Not Given Documented by: Gabapentin (Neurontin) 300 mg PO BID [facility] Last Admin: 05/13/20 08:25 Dose: 300 mg Documented by: Insulin Glargine (Lantus Solostar) 15 units SUBCUT BEDTIME [facility] Last Admin: 05/12/20 21:23 Dose: 15 units Documented by: Insulin Human Lispro (Humalog) 0 unit SUBCUT QIDACANDBED [facility]; Protocol Last Admin: 05/13/20 07:35 Dose: Not Given Documented by: Levalbuterol HCl (Xopenex) 1.25 mg NEB Q2H PRN PRN Reason: wheezing/sob Levalbuterol HCl (Xopenex) 1.25 mg NEB QIDRT [facility] Last Admin: 05/13/20 10:31 Dose: 1.25 mg Documented by: Lorazepam (Ativan) 0.5 mg IVPUSH Q4H PRN PRN Reason: Nausea/Vomiting Last Admin: 05/04/20 21:30 Dose: 0.5 mg Documented by: Lorazepam (Ativan Oral Concentrate 1mg/0.5 Ml U/D) 0.5 mg PO Q2H PRN PRN Reason: Anxiety Last Admin: 05/05/20 14:16 Dose: 0.5 mg Documented by: Magnesium Hydroxide (Milk Of Magnesia) 30 ml PO Q12H PRN PRN Reason: Constipation Magnesium Oxide (Magnesium Oxide) 400 mg PO BID [facility] Last Admin: 05/13/20 08:26 Dose: 400 mg Documented by: Melatonin (Melatonin) 9 mg PO BEDTIME [facility] Last Admin: 05/12/20 20:08 Dose: 9 mg Documented by: Morphine Sulfate (Morphine 10 Mg/0.5 Ml Oral Syringe) 2.5 mg PO Q2H PRN PRN Reason: Dyspnea Last Admin: 05/12/20 23:08 Dose: 2.5 mg Documented by: Nystatin (Nystop) 0 gm TOP TID [facility] Last Admin: 05/13/20 08:26 Dose: Not Given Documented by: Ondansetron HCl (Zofran) 4 mg IV Q6H PRN PRN Reason: Nausea/Vomiting Last Admin: 04/29/20 12:36 Dose: 4 mg Documented by: Ondansetron HCl (Zofran Odt) 4 mg PO Q6H PRN PRN Reason: Nausea able to take PO Prednisone 10 mg/ Prednisone (20 mg) 30 mg PO DAILY [facility] Last Admin: 05/13/20 08:25 Dose: 30 mg Documented by: Ropinirole HCl (Requip) 1.5 mg PO BID [facility] Last Admin: 05/13/20 08:25 Dose: 1.5 mg Documented by: Senna/Docusate Sodium (Senna Plus) 1 tab PO BID PRN PRN Reason: Constipation Sodium Chloride (Saline Flush) 10 ml FLUSH ASDIRECTED PRN PRN Reason: Keep Vein Open Last Admin: 04/28/20 14:28 Dose: 10 ml Documented by: Discontinued Medications Albuterol (Proventil Neb Soln) 2.5 mg NEB Q4H PRN PRN Reason: Shortness Of Breath/wheezing Last Admin: 05/03/20 14:05 Dose: 2.5 mg Documented by: Albuterol/Ipratropium (Duoneb 3.0-0.5 Mg/3 Ml) 3 ml NEB QIDRT [facility] Last Admin: 05/12/20 10:40 Dose: 3 ml Documented by: Amlodipine Besylate (Norvasc) 5 mg PO DAILY [facility] Last Admin: 05/11/20 09:31 Dose: 5 mg Documented by: Bumetanide (Bumex) 1 mg IVPUSH ONETIME ONE Stop: 04/28/20 14:13 Last Admin: 04/28/20 14:23 Dose: 1 mg Documented by: Bumetanide (Bumex) 2 mg IVPUSH ONETIME ONE Stop: 04/29/20 07:01 Last Admin: 04/29/20 06:32 Dose: 2 mg Documented by: Bumetanide (Bumex) 2 mg IVPUSH ONETIME ONE Stop: 05/02/20 10:35 Last Admin: 05/02/20 11:43 Dose: 2 mg Documented by: Bumetanide (Bumex) 2 mg IVPUSH ONETIME ONE Stop: 05/03/20 13:01 Last Admin: 05/03/20 14:05 Dose: 2 mg Documented by: Bumetanide (Bumex) 2 mg IVPUSH BID [facility] Stop: 05/04/20 21:01 Last Admin: 05/04/20 20:02 Dose: 2 mg Documented by: Bumetanide (Bumex) 1 mg IVPUSH ONETIME ONE Stop: 05/06/20 12:16 Last Admin: 05/06/20 12:17 Dose: 1 mg Documented by: Bumetanide (Bumex) 2 mg IVPUSH ONETIME ONE Stop: 05/07/20 11:01 Last Admin: 05/07/20 11:18 Dose: 2 mg Documented by: Bumetanide (Bumex) 1 mg IVPUSH ONETIME ONE Stop: 05/08/20 10:31 Last Admin: 05/08/20 11:15 Dose: 1 mg Documented by: Bumetanide (Bumex) 2 mg IVPUSH ONETIME ONE Stop: 05/09/20 09:46 Last Admin: 05/09/20 10:09 Dose: 2 mg Documented by: Carvedilol (Coreg) 3.125 mg PO BID [facility] Last Admin: 04/28/20 20:53 Dose: 3.125 mg Documented by: Doxycycline Hyclate (Vibramycin) 100 mg PO BID [facility] Last Admin: 05/04/20 08:52 Dose: 100 mg Documented by: Gabapentin (Neurontin) 300 mg PO BID@0800,1200 [facility] Last Admin: 05/01/20 08:21 Dose: 300 mg Documented by: Gabapentin (Neurontin) 600 mg PO BEDTIME [facility] Last Admin: 04/30/20 21:28 Dose: 600 mg Documented by: Hydroxychloroquine Sulfate (Plaquenil) 200 mg PO DAILY [facility] Last Admin: 05/11/20 09:30 Dose: 200 mg Documented by: Sodium Chloride (Normal Saline) 1,000 mls @ 125 mls/hr IV ASDIRECTED [facility] Stop: 04/29/20 17:31 Last Admin: 04/29/20 11:05 Dose: 125 mls/hr Documented by: Sodium Chloride (Normal Saline) 500 mls @ 125 mls/hr IV ASDIRECTED ONE Stop: 04/30/20 13:59 Last Admin: 04/30/20 10:31 Dose: 125 mls/hr Documented by: Sodium Chloride (Normal Saline) 500 mls @ 125 mls/hr IV ONETIME ONE Stop: 05/01/20 09:48 Last Admin: 05/01/20 06:06 Dose: 125 mls/hr Documented by: Albumin Human (Albumin 25%) 25 gm in 100 mls @ 25 mls/hr IV Q6H [facility] Stop: 05/04/20 08:59 Last Admin: 05/04/20 05:19 Dose: 25 mls/hr Documented by: Meropenem 1 gm/ Sodium (Chloride) 50 mls @ 100 mls/hr IV Q12H [facility] Last Admin: 05/07/20 23:49 Dose: 100 mls/hr Documented by: Levofloxacin/Dextrose 750 mg/ (Premix) 150 mls @ 100 mls/hr IV Q24H [facility] Last Admin: 05/04/20 09:31 Dose: 100 mls/hr Documented by: Dextrose/Water (Dextrose 5% In Water) 1,000 mls @ 75 mls/hr IV ASDIRECTED [facility] Last Admin: 05/05/20 23:37 Dose: 75 mls/hr Documented by: Levofloxacin/Dextrose 750 mg/ (Premix) 150 mls @ 100 mls/hr IV Q48H [facility] Last Admin: 05/08/20 11:39 Dose: Not Given Documented by: Doxycycline Hyclate 100 mg/ (Sodium Chloride) 100 mls @ 100 mls/hr IV Q12H [facility] Stop: 05/11/20 08:00 Last Admin: 05/11/20 00:30 Dose: 100 mls/hr Documented by: Cefepime HCl 2 gm/ Sodium (Chloride) 50 mls @ 100 mls/hr IV Q24H [facility] Stop: 05/11/20 08:00 Last Admin: 05/10/20 15:15 Dose: 100 mls/hr Documented by: Magnesium Sulfate (Magnesium Sulfate In Water 2 Gm/50 Ml) 2 gm in 50 mls @ 25 mls/hr IV Q6H [facility] Stop: 05/09/20 16:59 Last Admin: 05/09/20 15:00 Dose: 25 mls/hr Documented by: Insulin Human Lispro (Humalog) 0 unit SUBCUT QIDACANDBED [facility]; Protocol Last Admin: 05/01/20 12:38 Dose: Not Given Documented by: Insulin Human Lispro (Humalog) 0 unit SUBCUT QIDACANDBED [facility]; Protocol Last Admin: 05/11/20 07:29 Dose: 3 units Documented by: Losartan Potassium (Cozaar) 50 mg PO DAILY [facility] Methylprednisolone Sodium Succinate (Solu-Medrol) 40 mg IVPUSH Q8H [facility] Last Admin: 05/11/20 02:12 Dose: 40 mg Documented by: Nitroglycerin (Nitrostat) 0.4 mg SL ONETIME ONE Stop: 04/28/20 14:15 Last Admin: 04/28/20 14:22 Dose: 0.4 mg Documented by: Pantoprazole Sodium (Protonix) 40 mg PO DAILY@0730 [facility] Last Admin: 05/01/20 08:21 Dose: 40 mg Documented by: Prednisone (Prednisone) 40 mg PO ONETIME ONE Stop: 05/11/20 09:31 Last Admin: 05/11/20 09:29 Dose: 40 mg Documented by: Sodium Chloride (Saline Flush) 10 ml FLUSH ASDIRECTED PRN PRN Reason: Keep Vein Open Last Admin: 04/28/20 14:29 Dose: 10 ml Documented by: Sodium Polystyrene Sulfonate (Kayexalate) 30 gm PO ONETIME ONE Stop: 05/02/20 05:55 Last Admin: 05/02/20 07:08 Dose: 30 gm Documented by: Sodium Polystyrene Sulfonate (Kayexalate) 30 gm PO ONETIME ONE Stop: 05/13/20 09:31 Last Admin: 05/13/20 09:57 Dose: 30 gm Documented by: Spironolactone (Aldactone) 25 mg PO DAILY [facility] Last Admin: 04/29/20 10:17 Dose: Not Given Documented by: - Exam Quality Assessment: Supplemental Oxygen General: Alert, Oriented, Cooperative, No Acute Distress Lungs: Normal Respiratory Effort Cardiovascular: Regular Rate, Regular Rhythm GI/Abdominal Exam: Soft, No Distention Extremities: No Pedal Edema, Other (both lower legs wrapped with KONG wraps). No: Increased Warmth Skin: Warm, Dry Psy/Mental Status: Alert, Normal Affect - Patient Data Lab Results Last 24 hrs: Laboratory Results - last 24 hr 05/12/20 05/12/20 05/12/20 Range/Units 11:25 16:13 21:18 WBC (4.5-11.0) K/uL RBC (3.30-5.50) M/uL Hgb (12.0-15.0) g/dL Hct (36.0-48.0) % MCV (80-98) fL MCH (27-31) pg MCHC (32-36) % Plt Count (150-400) K/uL D-Dimer, Quantitative (0.0-500.0) ng/mL Sodium (140-148) mmol/L Potassium (3.6-5.2) mmol/L Chloride (100-108) mmol/L Carbon Dioxide (21-32) mmol/L Anion Gap (5.0-14.0) mmol/L BUN (7-18) mg/dL Creatinine (0.6-1.0) mg/dL Est Cr Clr Drug Dosing mL/min Estimated GFR (MDRD) (>60) Glucose (74-106) mg/dL POC Glucose 217 H 246 H 211 H (74-106) MG/DL Calcium (8.5-10.1) mg/dL Magnesium (1.8-2.4) mg/dL Total Bilirubin (0.2-1.0) mg/dL AST (15-37) U/L ALT (12-78) U/L Alkaline Phosphatase (46-116) U/L C-Reactive Protein (0.0-0.3) mg/dL Total Protein (6.4-8.2) g/dL Albumin (3.4-5.0) g/dL Globulin (2.3-3.5) g/dL Albumin/Globulin Ratio (1.2-2.2) 05/13/20 05/13/20 05/13/20 Range/Units 04:00 04:00 04:00 WBC 4.3 L (4.5-11.0) K/uL RBC 3.02 L (3.30-5.50) M/uL Hgb 8.2 L (12.0-15.0) g/dL Hct 27.3 L (36.0-48.0) % MCV 90 (80-98) fL MCH 27 (27-31) pg MCHC 30 L (32-36) % Plt Count 99 L (150-400) K/uL D-Dimer, Quantitative 1531.65 H (0.0-500.0) ng/mL Sodium 140 (140-148) mmol/L Potassium 5.9 H (3.6-5.2) mmol/L Chloride 105 (100-108) mmol/L Carbon Dioxide 31 (21-32) mmol/L Anion Gap 9.9 (5.0-14.0) mmol/L BUN 117 H* (7-18) mg/dL Creatinine 2.0 H (0.6-1.0) mg/dL Est Cr Clr Drug Dosing 19.64 mL/min Estimated GFR (MDRD) 24 L (>60) Glucose 135 H (74-106) mg/dL POC Glucose (74-106) MG/DL Calcium 7.9 L (8.5-10.1) mg/dL Magnesium 2.8 H (1.8-2.4) mg/dL Total Bilirubin 0.6 D (0.2-1.0) mg/dL AST 37 (15-37) U/L ALT 33 (12-78) U/L Alkaline Phosphatase 68 (46-116) U/L C-Reactive Protein 0.38 H (0.0-0.3) mg/dL Total Protein 5.2 L (6.4-8.2) g/dL Albumin 2.1 L (3.4-5.0) g/dL Globulin 3.1 (2.3-3.5) g/dL Albumin/Globulin Ratio 0.7 L (1.2-2.2) 05/13/20 Range/Units 07:30 WBC (4.5-11.0) K/uL RBC (3.30-5.50) M/uL Hgb (12.0-15.0) g/dL Hct (36.0-48.0) % MCV (80-98) fL MCH (27-31) pg MCHC (32-36) % Plt Count (150-400) K/uL D-Dimer, Quantitative (0.0-500.0) ng/mL Sodium (140-148) mmol/L Potassium (3.6-5.2) mmol/L Chloride (100-108) mmol/L Carbon Dioxide (21-32) mmol/L Anion Gap (5.0-14.0) mmol/L BUN (7-18) mg/dL Creatinine (0.6-1.0) mg/dL Est Cr Clr Drug Dosing mL/min Estimated GFR (MDRD) (>60) Glucose (74-106) mg/dL POC Glucose 129 H (74-106) MG/DL Calcium (8.5-10.1) mg/dL Magnesium (1.8-2.4) mg/dL Total Bilirubin (0.2-1.0) mg/dL AST (15-37) U/L ALT (12-78) U/L Alkaline Phosphatase (46-116) U/L C-Reactive Protein (0.0-0.3) mg/dL Total Protein (6.4-8.2) g/dL Albumin (3.4-5.0) g/dL Globulin (2.3-3.5) g/dL Albumin/Globulin Ratio (1.2-2.2) Result Diagrams: 05/13/20 04:00 05/13/20 04:00 Sepsis Event Note - Evaluation Sepsis Screening Result: No Definite Risk - Focused Exam Vital Signs: Vital Signs Temp Pulse Resp BP BP Pulse Ox Pulse Ox 05/13/20 08:25 133/38 L 05/13/20 07:25 96 05/13/20 07:00 36.4 C 55 L 18 133/38 L 89 L 05/13/20 02:14 57 L 97 05/13/20 01:44 96 05/12/20 23:48 98 98 - Problem List & Annotations (1) Congestive heart failure SNOMED Code(s): 25728935 Code(s): I50.9 - HEART FAILURE, UNSPECIFIED Status: Acute Current Visit: Yes Qualifiers: Heart failure type: diastolic Heart failure chronicity: acute on chronic Qualified Code(s): I50.33 - Acute on chronic diastolic (congestive) heart failure (2) COPD (chronic obstructive pulmonary disease) SNOMED Code(s): 46031207 Code(s): J44.9 - CHRONIC OBSTRUCTIVE PULMONARY DISEASE, UNSPECIFIED Status: Chronic Priority: Low Current Visit: No Qualifiers: COPD type: unspecified COPD Qualified Code(s): J44.9 - Chronic obstructive pulmonary disease, unspecified (3) 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 SNOMED Code(s): 843706849 Code(s): I27.22 - PULMONARY HYPERTENSION DUE TO LEFT HEART DISEASE Status: Chronic Current Visit: No (4) Diabetes mellitus, type 2 SNOMED Code(s): 17528897 Code(s): E11.9 - TYPE 2 DIABETES MELLITUS WITHOUT COMPLICATIONS Status: Chronic Priority: Low Current Visit: No Qualifiers: 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 use Diabetes mellitus complication status: with other specified complication Qualified Code(s): E11.69 - Type 2 diabetes mellitus with other specified complication (5) Rheumatoid arthritis SNOMED Code(s): 92207853 Code(s): M06.9 - RHEUMATOID ARTHRITIS, UNSPECIFIED Status: Chronic Current Visit: No Qualifiers: Rheumatoid arthritis location: unspecified site Rheumatoid factor presence: unspecified presence Qualified Code(s): M06.9 - Rheumatoid arthritis, unspecified (6) CKD (chronic kidney disease), stage III SNOMED Code(s): 986533196 Code(s): N18.30 - CHRONIC KIDNEY DISEASE, STAGE 3 UNSPECIFIED Status: Chronic Current Visit: Yes Qualifiers: Chronic kidney disease stage 3 subtype: stage 3a (GFR 45-59) Qualified Code(s): N18.31 - Chronic kidney disease, stage 3a - Problem List Review Problem List Initiated/Reviewed/Updated: Yes - My Orders Last 24 Hours: My Active Orders 05/12/20 12:05 RT Aerosol Therapy [RC] ASDIRECTED levalbuterol HCL [Xopenex] 1.25 mg NEB Q2H PRN 05/12/20 15:00 levalbuterol HCL [Xopenex] 1.25 mg NEB QIDRT 05/14/20 05:00 BASIC METABOLIC PANEL,BMP [CHEM] Timed CBC W/O DIFF,HEMOGRAM [HEME] Timed (1) - Plan Plan:: ASSESSMENT AND PLAN - Persistent pulmonary infiltrates with acute on chronic respiratory failure- continued hypoxia and requiring high levels of supplemental oxygen prognosis still very guarded but seems to be slowly making some progress though she is still quite compromised. -Supplemental oxygen as needed -Steroids as below -Lorazepam and morphine as needed for comfort -Transition to comfort care if condition declines further Diastolic congestive heart failure-moderate diastolic dysfunction noted on echocardiogram with evidence of severe asymmetric septal hypertrophy. Also noted was elevation in right-sided pressures. Intravascular volume status appropriate but she has a fair amount of edema. Declining kidney function continues to limit our ability to diurese her. -Hold diuretic therapy again today -Continue amlodipine to 5 mg twice daily -Strict intake and output monitoring -Physical therapy Acute kidney injury-creatinine has continued a slow rise along with her BUN and potassium. -Discontinue hydroxychloroquine -Labs in the morning Palliative care-she wants to continue current management but would also like to be treated for comfort. -Morphine and lorazepam as needed for comfort Hyperkalemia-mild and persistent with slow rise -Kayexalate 30 g today -Reassess potassium level in a.m. Anemia-hemoglobin improved with transfusion yesterday. -Labs in the morning Severe oxygen dependent COPD-complicated by severe pulmonary hypertension and persistent bilateral pulmonary infiltrates related to recent Covid infection and ARDS. -Calcium channel beryl initiated as above -Scheduled and as needed Xopenex nebulizers -prednisone today with slow taper Type 2 diabetes mellitus-sugars elevated now that she is back on steroids but are under acceptable control at this time. -High-dose sliding scale -Continue long-acting insulin, titrate as needed Rheumatoid arthritis-stable. -Hold hydroxychloroquine Chronic lower extremity venous stasis ulcers-these were present on admission. Currently being managed with pressure wrappings and dressing changes daily. Maintenance issues - - DVT prophylaxis -apixaban - GI prophylaxis -PPI discontinued as above - Nutrition -consistent carbohydrates Disposition -I would anticipate discharge with subacute rehab at [facility] if she survives the hospital stay. Prognosis is still poor and quite guarded with her multitude of medical problems and recent Covid infection. Andrew Mojica MD
[2020-05-13] MEDS: Insulin Glargine,Human Rec. Analog 100 Units/ML 3 ML Pen SUBCUT SCH (21:30)
[2020-05-13] MEDS: Melatonin 3 MG Tab PO SCH (21:31)
[2020-05-14] MEDS: Diclofenac Sodium 1% Gel 100 GM Tube TOP SCH ×4 (05:31→22:06)
[2020-05-14] MEDS ORDERED: Sodium Polystyrene Sulfonate 15 GM/60 ML Susp 60 ML Bot PO ONE (07:00)
[2020-05-14] MEDS: Levalbuterol HCl 1.25 MG/3 ML Neb NEB SCH (07:04)
[2020-05-14] MEDS: Insulin Lispro 100 Unit/ML 3 ML KwikPen SUBCUT SCH (08:13)
[2020-05-14] MEDS: Gabapentin 300 MG Cap PO SCH ×2 (08:54→22:04)
[2020-05-14] MEDS: Nystatin Topical Powder 15 GM Bottle TOP SCH (08:54)
[2020-05-14] MEDS: amLODIPine 5 MG Tab PO SCH (08:54)
[2020-05-14] MEDS: Apixaban 2.5 MG Tab PO SCH (08:55)
[2020-05-14] MEDS: Magnesium Oxide 400 MG Tab PO SCH (08:55)
[2020-05-14] MEDS: predniSONE 10 MG, predniSONE 20 MG PO SCH ×2 (08:55)
[2020-05-14] MEDS: rOPINIRole 0.5 MG Tab PO SCH ×2 (08:55→22:05)
--- NOTE | 2020-05-14 09:58 | PCM.PN ---
- General Info Date of Service: 05/14/20 Subjective Update: No acute events overnight. Patient is on slightly more oxygen today than she was yesterday. Creatinine and BUN are higher again today. Shortness of breath is stable. Patient has had a chance to talk to family and think about her wishes for the upcoming course of her care. She feels that she is not able to progress beyond where she is at this time given all of her chronic medical problems and the recent Covid infection. She does not have any hope that her condition will get better and she has suffered greatly with her chronic medical problems as well as the Covid infection. She would like to transition to comfort care after she has had a chance to say goodbye to her family. She would like to stop all medications not intended strictly for comfort at this time. She is planning on making a transition to pure comfort care tomorrow and will remove her oxygen when that transition happens. Functional Status: Reports: Pain Controlled - Review of Systems General: Reports: Weakness Pulmonary: Reports: Shortness of Breath - Patient Data Vitals - Most Recent: Last Vital Signs Temp 36.5 C 05/14/20 07:41 Pulse 63 05/14/20 07:41 Resp 18 05/14/20 07:41 BP 153/39 H 05/14/20 08:54 Pulse Ox 97 05/14/20 07:41 Weight - Most Recent: 89.222 kg I&O - Last 24 Hours: Intake & Output 05/13/20 05/14/20 05/14/20 22:59 06:59 14:59 Output Total 200 Balance -200 Lab Results Last 24 Hours: Laboratory Results - last 24 hr 05/13/20 05/13/20 05/13/20 Range/Units 12:11 16:35 21:13 WBC (4.5-11.0) K/uL RBC (3.30-5.50) M/uL Hgb (12.0-15.0) g/dL Hct (36.0-48.0) % MCV (80-98) fL MCH (27-31) pg MCHC (32-36) % Plt Count (150-400) K/uL Sodium (140-148) mmol/L Potassium (3.6-5.2) mmol/L Chloride (100-108) mmol/L Carbon Dioxide (21-32) mmol/L Anion Gap (5.0-14.0) mmol/L BUN (7-18) mg/dL Creatinine (0.6-1.0) mg/dL Est Cr Clr Drug Dosing mL/min Estimated GFR (MDRD) (>60) Glucose (74-106) mg/dL POC Glucose 194 H 252 H 175 H (74-106) MG/DL Calcium (8.5-10.1) mg/dL 05/14/20 05/14/20 05/14/20 Range/Units 05:00 05:00 07:30 WBC 4.0 L (4.5-11.0) K/uL RBC 3.01 L (3.30-5.50) M/uL Hgb 8.2 L (12.0-15.0) g/dL Hct 27.3 L (36.0-48.0) % MCV 91 (80-98) fL MCH 27 (27-31) pg MCHC 30 L (32-36) % Plt Count 101 L (150-400) K/uL Sodium 140 (140-148) mmol/L Potassium 6.0 H (3.6-5.2) mmol/L Chloride 106 (100-108) mmol/L Carbon Dioxide 31 (21-32) mmol/L Anion Gap 9.0 (5.0-14.0) mmol/L BUN 126 H* (7-18) mg/dL Creatinine 2.1 H (0.6-1.0) mg/dL Est Cr Clr Drug Dosing 18.71 mL/min Estimated GFR (MDRD) 23 L (>60) Glucose 116 H (74-106) mg/dL POC Glucose 81 (74-106) MG/DL Calcium 8.1 L (8.5-10.1) mg/dL Med Orders - Current: Current Medications Acetaminophen (Tylenol) 650 mg PO Q4H PRN PRN Reason: Pain (Mild 1-3)/fever Hydrocodone Bitart/Acetaminophen ([place] 325-5 Mg) 1 tab PO Q4H PRN PRN Reason: Pain (moderate 4-6) Last Admin: 05/12/20 23:08 Dose: 1 tab Documented by: Artificial Tears (Genteal Mild To Moderate Ophth Soln) 0 ml EYEBOTH QID PRN PRN Reason: DRY EYES Benzocaine/Menthol (Cepacol Sore Throat) 1 lozenge MUCMEM Q2H PRN PRN Reason: Sore Throat Diclofenac Sodium (Voltaren 1% Gel) 0 gm TOP QID [facility] Last Admin: 05/14/20 05:31 Dose: Not Given Documented by: Gabapentin (Neurontin) 300 mg PO BID [facility] Last Admin: 05/14/20 08:54 Dose: 300 mg Documented by: Levalbuterol HCl (Xopenex) 1.25 mg NEB Q2H PRN PRN Reason: wheezing/sob Lorazepam (Ativan) 0.5 mg IVPUSH Q4H PRN PRN Reason: Nausea/Vomiting Last Admin: 05/04/20 21:30 Dose: 0.5 mg Documented by: Melatonin (Melatonin) 9 mg PO BEDTIME [facility] Last Admin: 05/13/20 21:31 Dose: 9 mg Documented by: Ondansetron HCl (Zofran) 4 mg IV Q6H PRN PRN Reason: Nausea/Vomiting Last Admin: 04/29/20 12:36 Dose: 4 mg Documented by: Ondansetron HCl (Zofran Odt) 4 mg PO Q6H PRN PRN Reason: Nausea able to take PO Ropinirole HCl (Requip) 1.5 mg PO BID [facility] Last Admin: 05/14/20 08:55 Dose: 1.5 mg Documented by: Sodium Chloride (Saline Flush) 10 ml FLUSH ASDIRECTED PRN PRN Reason: Keep Vein Open Last Admin: 04/28/20 14:28 Dose: 10 ml Documented by: Discontinued Medications Albuterol (Proventil Neb Soln) 2.5 mg NEB Q4H PRN PRN Reason: Shortness Of Breath/wheezing Last Admin: 05/03/20 14:05 Dose: 2.5 mg Documented by: Albuterol/Ipratropium (Duoneb 3.0-0.5 Mg/3 Ml) 3 ml NEB QIDRT [facility] Last Admin: 05/12/20 10:40 Dose: 3 ml Documented by: Amlodipine Besylate (Norvasc) 5 mg PO DAILY [facility] Last Admin: 05/11/20 09:31 Dose: 5 mg Documented by: Amlodipine Besylate (Norvasc) 5 mg PO BID [facility] Last Admin: 05/14/20 08:54 Dose: 5 mg Documented by: Apixaban (Eliquis) 2.5 mg PO BID [facility] Last Admin: 05/14/20 08:55 Dose: 2.5 mg Documented by: Bumetanide (Bumex) 1 mg IVPUSH ONETIME ONE Stop: 04/28/20 14:13 Last Admin: 04/28/20 14:23 Dose: 1 mg Documented by: Bumetanide (Bumex) 2 mg IVPUSH ONETIME ONE Stop: 04/29/20 07:01 Last Admin: 04/29/20 06:32 Dose: 2 mg Documented by: Bumetanide (Bumex) 2 mg IVPUSH ONETIME ONE Stop: 05/02/20 10:35 Last Admin: 05/02/20 11:43 Dose: 2 mg Documented by: Bumetanide (Bumex) 2 mg IVPUSH ONETIME ONE Stop: 05/03/20 13:01 Last Admin: 05/03/20 14:05 Dose: 2 mg Documented by: Bumetanide (Bumex) 2 mg IVPUSH BID [facility] Stop: 05/04/20 21:01 Last Admin: 05/04/20 20:02 Dose: 2 mg Documented by: Bumetanide (Bumex) 1 mg IVPUSH ONETIME ONE Stop: 05/06/20 12:16 Last Admin: 05/06/20 12:17 Dose: 1 mg Documented by: Bumetanide (Bumex) 2 mg IVPUSH ONETIME ONE Stop: 05/07/20 11:01 Last Admin: 05/07/20 11:18 Dose: 2 mg Documented by: Bumetanide (Bumex) 1 mg IVPUSH ONETIME ONE Stop: 05/08/20 10:31 Last Admin: 05/08/20 11:15 Dose: 1 mg Documented by: Bumetanide (Bumex) 2 mg IVPUSH ONETIME ONE Stop: 05/09/20 09:46 Last Admin: 05/09/20 10:09 Dose: 2 mg Documented by: Carvedilol (Coreg) 3.125 mg PO BID [facility] Last Admin: 04/28/20 20:53 Dose: 3.125 mg Documented by: Dextrose (Glutose 15) 15 gm PO ONETIME PRN PRN Reason: Hypoglycemia Dextrose/Water (Dextrose 50% In Water) 50 ml IV ONETIME PRN PRN Reason: Hypoglycemia Doxycycline Hyclate (Vibramycin) 100 mg PO BID [facility] Last Admin: 05/04/20 08:52 Dose: 100 mg Documented by: Gabapentin (Neurontin) 300 mg PO BID@0800,1200 [facility] Last Admin: 05/01/20 08:21 Dose: 300 mg Documented by: Gabapentin (Neurontin) 600 mg PO BEDTIME [facility] Last Admin: 04/30/20 21:28 Dose: 600 mg Documented by: Hydroxychloroquine Sulfate (Plaquenil) 200 mg PO DAILY [facility] Last Admin: 05/11/20 09:30 Dose: 200 mg Documented by: Sodium Chloride (Normal Saline) 1,000 mls @ 125 mls/hr IV ASDIRECTED [facility] Stop: 04/29/20 17:31 Last Admin: 04/29/20 11:05 Dose: 125 mls/hr Documented by: Sodium Chloride (Normal Saline) 500 mls @ 125 mls/hr IV ASDIRECTED ONE Stop: 04/30/20 13:59 Last Admin: 04/30/20 10:31 Dose: 125 mls/hr Documented by: Sodium Chloride (Normal Saline) 500 mls @ 125 mls/hr IV ONETIME ONE Stop: 05/01/20 09:48 Last Admin: 05/01/20 06:06 Dose: 125 mls/hr Documented by: Albumin Human (Albumin 25%) 25 gm in 100 mls @ 25 mls/hr IV Q6H [facility] Stop: 05/04/20 08:59 Last Admin: 05/04/20 05:19 Dose: 25 mls/hr Documented by: Meropenem 1 gm/ Sodium (Chloride) 50 mls @ 100 mls/hr IV Q12H [facility] Last Admin: 05/07/20 23:49 Dose: 100 mls/hr Documented by: Levofloxacin/Dextrose 750 mg/ (Premix) 150 mls @ 100 mls/hr IV Q24H [facility] Last Admin: 05/04/20 09:31 Dose: 100 mls/hr Documented by: Dextrose/Water (Dextrose 5% In Water) 1,000 mls @ 75 mls/hr IV ASDIRECTED [facility] Last Admin: 05/05/20 23:37 Dose: 75 mls/hr Documented by: Levofloxacin/Dextrose 750 mg/ (Premix) 150 mls @ 100 mls/hr IV Q48H [facility] Last Admin: 05/08/20 11:39 Dose: Not Given Documented by: Doxycycline Hyclate 100 mg/ (Sodium Chloride) 100 mls @ 100 mls/hr IV Q12H [facility] Stop: 05/11/20 08:00 Last Admin: 05/11/20 00:30 Dose: 100 mls/hr Documented by: Cefepime HCl 2 gm/ Sodium (Chloride) 50 mls @ 100 mls/hr IV Q24H [facility] Stop: 05/11/20 08:00 Last Admin: 05/10/20 15:15 Dose: 100 mls/hr Documented by: Magnesium Sulfate (Magnesium Sulfate In Water 2 Gm/50 Ml) 2 gm in 50 mls @ 25 mls/hr IV Q6H [facility] Stop: 05/09/20 16:59 Last Admin: 05/09/20 15:00 Dose: 25 mls/hr Documented by: Insulin Glargine (Lantus Solostar) 15 units SUBCUT BEDTIME [facility] Last Admin: 05/13/20 21:30 Dose: 15 units Documented by: Insulin Human Lispro (Humalog) 0 unit SUBCUT QIDACANDBED [facility]; Protocol Last Admin: 05/01/20 12:38 Dose: Not Given Documented by: Insulin Human Lispro (Humalog) 0 unit SUBCUT QIDACANDBED [facility]; Protocol Last Admin: 05/11/20 07:29 Dose: 3 units Documented by: Insulin Human Lispro (Humalog) 0 unit SUBCUT QIDACANDBED [facility]; Protocol Last Admin: 05/14/20 08:13 Dose: Not Given Documented by: Levalbuterol HCl (Xopenex) 1.25 mg NEB QIDRT [facility] Last Admin: 05/14/20 07:04 Dose: 1.25 mg Documented by: Lorazepam (Ativan Oral Concentrate 1mg/0.5 Ml U/D) 0.5 mg PO Q2H PRN PRN Reason: Anxiety Last Admin: 05/05/20 14:16 Dose: 0.5 mg Documented by: Losartan Potassium (Cozaar) 50 mg PO DAILY [facility] Magnesium Hydroxide (Milk Of Magnesia) 30 ml PO Q12H PRN PRN Reason: Constipation Magnesium Oxide (Magnesium Oxide) 400 mg PO BID [facility] Last Admin: 05/14/20 08:55 Dose: 400 mg Documented by: Methylprednisolone Sodium Succinate (Solu-Medrol) 40 mg IVPUSH Q8H [facility] Last Admin: 05/11/20 02:12 Dose: 40 mg Documented by: Morphine Sulfate (Morphine 10 Mg/0.5 Ml Oral Syringe) 2.5 mg PO Q2H PRN PRN Reason: Dyspnea Last Admin: 05/12/20 23:08 Dose: 2.5 mg Documented by: Nitroglycerin (Nitrostat) 0.4 mg SL ONETIME ONE Stop: 04/28/20 14:15 Last Admin: 04/28/20 14:22 Dose: 0.4 mg Documented by: Nystatin (Nystop) 0 gm TOP TID [facility] Last Admin: 05/14/20 08:54 Dose: Not Given Documented by: Pantoprazole Sodium (Protonix) 40 mg PO DAILY@0730 [facility] Last Admin: 05/01/20 08:21 Dose: 40 mg Documented by: Prednisone (Prednisone) 40 mg PO ONETIME ONE Stop: 05/11/20 09:31 Last Admin: 05/11/20 09:29 Dose: 40 mg Documented by: Prednisone 10 mg/ Prednisone (20 mg) 30 mg PO DAILY [facility] Last Admin: 05/14/20 08:55 Dose: 30 mg Documented by: Senna/Docusate Sodium (Senna Plus) 1 tab PO BID PRN PRN Reason: Constipation Sodium Chloride (Saline Flush) 10 ml FLUSH ASDIRECTED PRN PRN Reason: Keep Vein Open Last Admin: 04/28/20 14:29 Dose: 10 ml Documented by: Sodium Polystyrene Sulfonate (Kayexalate) 30 gm PO ONETIME ONE Stop: 05/02/20 05:55 Last Admin: 05/02/20 07:08 Dose: 30 gm Documented by: Sodium Polystyrene Sulfonate (Kayexalate) 30 gm PO ONETIME ONE Stop: 05/13/20 09:31 Last Admin: 05/13/20 09:57 Dose: 30 gm Documented by: Sodium Polystyrene Sulfonate (Kayexalate) 30 gm PO ONETIME ONE Stop: 05/14/20 07:01 Spironolactone (Aldactone) 25 mg PO DAILY [facility] Last Admin: 04/29/20 10:17 Dose: Not Given Documented by: - Exam Quality Assessment: Supplemental Oxygen General: Alert, Oriented, Cooperative, No Acute Distress Lungs: Normal Respiratory Effort Cardiovascular: Regular Rate, Regular Rhythm GI/Abdominal Exam: No Distention Extremities: Pedal Edema Psy/Mental Status: Alert, Normal Affect - Patient Data Lab Results Last 24 hrs: Laboratory Results - last 24 hr 05/13/20 05/13/20 05/13/20 Range/Units 12:11 16:35 21:13 WBC (4.5-11.0) K/uL RBC (3.30-5.50) M/uL Hgb (12.0-15.0) g/dL Hct (36.0-48.0) % MCV (80-98) fL MCH (27-31) pg MCHC (32-36) % Plt Count (150-400) K/uL Sodium (140-148) mmol/L Potassium (3.6-5.2) mmol/L Chloride (100-108) mmol/L Carbon Dioxide (21-32) mmol/L Anion Gap (5.0-14.0) mmol/L BUN (7-18) mg/dL Creatinine (0.6-1.0) mg/dL Est Cr Clr Drug Dosing mL/min Estimated GFR (MDRD) (>60) Glucose (74-106) mg/dL POC Glucose 194 H 252 H 175 H (74-106) MG/DL Calcium (8.5-10.1) mg/dL 05/14/20 05/14/20 05/14/20 Range/Units 05:00 05:00 07:30 WBC 4.0 L (4.5-11.0) K/uL RBC 3.01 L (3.30-5.50) M/uL Hgb 8.2 L (12.0-15.0) g/dL Hct 27.3 L (36.0-48.0) % MCV 91 (80-98) fL MCH 27 (27-31) pg MCHC 30 L (32-36) % Plt Count 101 L (150-400) K/uL Sodium 140 (140-148) mmol/L Potassium 6.0 H (3.6-5.2) mmol/L Chloride 106 (100-108) mmol/L Carbon Dioxide 31 (21-32) mmol/L Anion Gap 9.0 (5.0-14.0) mmol/L BUN 126 H* (7-18) mg/dL Creatinine 2.1 H (0.6-1.0) mg/dL Est Cr Clr Drug Dosing 18.71 mL/min Estimated GFR (MDRD) 23 L (>60) Glucose 116 H (74-106) mg/dL POC Glucose 81 (74-106) MG/DL Calcium 8.1 L (8.5-10.1) mg/dL Result Diagrams: 05/14/20 05:00 05/14/20 05:00 Sepsis Event Note - Evaluation Sepsis Screening Result: No Definite Risk - Focused Exam Vital Signs: Vital Signs Temp Pulse Resp BP BP Pulse Ox 05/14/20 08:54 153/39 H 05/14/20 07:41 36.5 C 63 18 153/39 H 97 05/14/20 07:14 100 05/14/20 07:04 55 L 05/14/20 03:00 36.4 C 53 L 20 140/56 L 96 05/14/20 01:18 96 05/13/20 22:40 36.4 C 58 L 18 120/36 L 93 L - Problem List & Annotations (1) Congestive heart failure SNOMED Code(s): 88533547 Code(s): I50.9 - HEART FAILURE, UNSPECIFIED Status: Acute Current Visit: Yes Qualifiers: Heart failure type: diastolic Heart failure chronicity: acute on chronic Qualified Code(s): I50.33 - Acute on chronic diastolic (congestive) heart failure (2) COPD (chronic obstructive pulmonary disease) SNOMED Code(s): 92804399 Code(s): J44.9 - CHRONIC OBSTRUCTIVE PULMONARY DISEASE, UNSPECIFIED Status: Chronic Priority: Low Current Visit: No Qualifiers: COPD type: unspecified COPD Qualified Code(s): J44.9 - Chronic obstructive pulmonary disease, unspecified (3) 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 SNOMED Code(s): 456507784 Code(s): I27.22 - PULMONARY HYPERTENSION DUE TO LEFT HEART DISEASE Status: Chronic Current Visit: No (4) Diabetes mellitus, type 2 SNOMED Code(s): 34543242 Code(s): E11.9 - TYPE 2 DIABETES MELLITUS WITHOUT COMPLICATIONS Status: Chronic Priority: Low Current Visit: No Qualifiers: Diabetes mellitus residential insulin use: without buttermaker helper use Diabetes mellitus complication status: with other specified complication Qualified Code(s): E11.69 - Type 2 diabetes mellitus with other specified complication (5) Rheumatoid arthritis SNOMED Code(s): 15815538 Code(s): M06.9 - RHEUMATOID ARTHRITIS, UNSPECIFIED Status: Chronic Current Visit: No Qualifiers: Rheumatoid arthritis location: unspecified site Rheumatoid factor presence: unspecified presence Qualified Code(s): M06.9 - Rheumatoid arthritis, unspecified (6) CKD (chronic kidney disease), stage III SNOMED Code(s): 323545931 Code(s): N18.30 - CHRONIC KIDNEY DISEASE, STAGE 3 UNSPECIFIED Status: Chronic Current Visit: Yes Qualifiers: Chronic kidney disease stage 3 subtype: stage 3a (GFR 45-59) Qualified Code(s): N18.31 - Chronic kidney disease, stage 3a - Problem List Review Problem List Initiated/Reviewed/Updated: Yes - My Orders Last 24 Hours: My Active Orders 05/14/20 09:54 Communication Order [RC] ROUTINE 05/14/20 09:56 Resuscitation Status Routine 05/14/20 09:57 LORazepam [Ativan ORAL Concentrate 1MG/0.5 ML U/D] 1 mg PO Q1H PRN 05/14/20 09:57 Morphine [Morphine 10 MG/0.5 ML Oral Syringe] 5 mg PO Q1H PRN 05/14/20 11:30 GLUCOSE POC LAB TO COLLECT JPM [POC] QIDACANDBED 05/14/20 16:30 GLUCOSE POC LAB TO COLLECT JPM [POC] QIDACANDBED 05/14/20 21:00 GLUCOSE POC LAB TO COLLECT JPM [POC] QIDACANDBED - Plan Plan:: ASSESSMENT AND PLAN - Persistent pulmonary infiltrates with acute on chronic respiratory failure- continued hypoxia and requiring high levels of supplemental oxygen. Slightly worse again since yesterday. Patient feels that she will not recover from this with the severity of difficulties that have accumulated during this acute infection complicating her chronic medical problems. She wishes to transition to comfort based care only. She does understand that she will likely only live a limited number of hours without her supplemental oxygen. She would like to make the transition tomorrow. -Supplemental oxygen as needed -Discontinue nonessential medications -Lorazepam and morphine as needed for comfort -Transition to comfort care tomorrow Diastolic congestive heart failure-moderate diastolic dysfunction noted on echocardiogram with evidence of severe asymmetric septal hypertrophy. Also noted was elevation in right-sided pressures. -Discontinue oral medications Acute kidney injury-creatinine has continued a slow rise along with her BUN and potassium. Palliative care-she wants to transition to comfort care only today and will remove her oxygen tomorrow after she has had a chance to say goodbye to her family. -Morphine and lorazepam as needed for comfort Hyperkalemia-mild and persistent with slow rise. She declined Kayexalate today. Anemia-hemoglobin improved with transfusion 2 days ago. Severe oxygen dependent COPD-complicated by severe pulmonary hypertension and persistent bilateral pulmonary infiltrates related to recent Covid infection and ARDS. As needed nebulizers Type 2 diabetes mellitus-sugars elevated now that she is back on steroids but are under acceptable control at this time. -Discontinue Accu-Cheks and insulin Rheumatoid arthritis-stable. -Hold hydroxychloroquine Chronic lower extremity venous stasis ulcers-these were present on admission. Currently being managed with pressure wrappings and dressing changes daily. Maintenance issues - - DVT prophylaxis -comfort care - GI prophylaxis -comfort care - Nutrition -consistent carbohydrates Disposition -I would anticipate the patient will pass quickly tomorrow after her supplemental oxygen is removed. The patient and family are aware this will likely be a fairly rapid decline and they are all comfortable with the plan of care. Andrew Mojica MD
[2020-05-14] MEDS: Morphine 10 MG/0.5 ML Oral Syringe PO PRN ×3 (15:06→22:48)
[2020-05-14 19:52] VITALS: BP 162/49; PULSE 66
[2020-05-14] MEDS: Melatonin 3 MG Tab PO SCH (22:04)
[2020-05-15] MEDS: Morphine 10 MG/0.5 ML Oral Syringe PO PRN ×9 (01:46→11:00)
[2020-05-15] MEDS: LORazepam ORAL Concentrate 1MG/0.5ML U/D PO PRN ×2 (09:43→11:00)
[2020-05-15] MEDS: rOPINIRole 0.5 MG Tab PO SCH (10:22)
[2020-05-15] MEDS: Gabapentin 300 MG Cap PO SCH (10:22)
[2020-05-15] MEDS: Diclofenac Sodium 1% Gel 100 GM Tube TOP SCH (10:23)
--- NOTE | 2020-05-15 13:13 | PCM.DCSUM1 ---
Discharge Summary - Hospital Course Brief History: 75-year-old female with oxygen dependent COPD, severe pulmonary hypertension, heart failure with preserved ejection fraction, type 2 diabetes mellitus and chronic lower extremity venous ulcers as well as a recent long hospitalization for COVID-19 pneumonia who presented after a syncopal episode. She was found to be more hypoxic than usual and there was concern for congestive heart failure so she was admitted to the hospital for further management. - Discharge Data Discharge Date: 05/15/20 Discharge Disposition: 20 Preliminary Cause of *Q: Respiratory Failure (Severe COPD, recent COVID-19 and congestive heart failure) Condition: - Referral to Home Health Primary Care Physician: PCP None - Discharge Diagnosis/Problem(s) (1) Congestive heart failure SNOMED Code(s): 62662651 ICD Code: I50.9 - HEART FAILURE, UNSPECIFIED Status: Acute Current Visit: Yes Qualifiers: Heart failure type: diastolic Heart failure chronicity: acute on chronic Qualified Code(s): I50.33 - Acute on chronic diastolic (congestive) heart failure (2) COPD (chronic obstructive pulmonary disease) SNOMED Code(s): 72351931 ICD Code: J44.9 - CHRONIC OBSTRUCTIVE PULMONARY DISEASE, UNSPECIFIED Status: Chronic Priority: Low Current Visit: No Qualifiers: COPD type: unspecified COPD Qualified Code(s): J44.9 - Chronic obstructive pulmonary disease, unspecified (3) 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 SNOMED Code(s): 046725808 ICD Code: I27.22 - PULMONARY HYPERTENSION DUE TO LEFT HEART DISEASE Status: Chronic Current Visit: No (4) Diabetes mellitus, type 2 SNOMED Code(s): 17335514 ICD Code: E11.9 - TYPE 2 DIABETES MELLITUS WITHOUT COMPLICATIONS Status: Chronic Priority: Low Current Visit: No Qualifiers: Diabetes mellitus remote computer terminal operator insulin use: without senior care use Diabetes mellitus complication status: with other specified complication Qualified Code(s): E11.69 - Type 2 diabetes mellitus with other specified complication (5) Rheumatoid arthritis SNOMED Code(s): 89132726 ICD Code: M06.9 - RHEUMATOID ARTHRITIS, UNSPECIFIED Status: Chronic Current Visit: No Qualifiers: Rheumatoid arthritis location: unspecified site Rheumatoid factor presence: unspecified presence Qualified Code(s): M06.9 - Rheumatoid arthritis, unspecified (6) CKD (chronic kidney disease), stage III SNOMED Code(s): 021611330 ICD Code: N18.30 - CHRONIC KIDNEY DISEASE, STAGE 3 UNSPECIFIED Status: Diabetes Educator wendy Current Visit: Yes Qualifiers: Chronic kidney disease stage 3 subtype: stage 3a (GFR 45-59) Qualified Code(s): N18.31 - Chronic kidney disease, stage 3a (7) Acute kidney injury superimposed on chronic kidney disease SNOMED Code(s): 28585654 ICD Code: N17.9 - ACUTE KIDNEY FAILURE, UNSPECIFIED; N18.9 - CHRONIC KIDNEY DISEASE, UNSPECIFIED Status: Acute Current Visit: Yes (8) Hyperkalemia SNOMED Code(s): 13048684 ICD Code: E87.5 - HYPERKALEMIA Status: Acute Current Visit: Yes (9) Acute and chronic respiratory failure with hypoxia SNOMED Code(s): 15625813, 575205817 ICD Code: J96.21 - ACUTE AND CHRONIC RESPIRATORY FAILURE WITH HYPOXIA Status: Acute Current Visit: Yes - Patient Summary/Data Hospital Course: Radha was brought to the emergency room after having a syncopal episode at home. When the paramedics responded they noted that she was quite hypoxic but did improve with supplemental oxygen. Work-up in the emergency room was concerning for congestive heart failure with some cephalization and pleural effusions noted on the chest x-ray. Her BNP was elevated, she had significant edema and she also had a mildly elevated troponin. She was given a dose of furosemide and the plan was for hospital admission for further management. Patient did have an echocardiogram which showed stable diastolic heart disease as well as severe pulmonary hypertension. Her troponin level remained stable. Attempts at diuresis unfortunately were unsuccessful and led to a rise in her creatinine level. We did not have significant improvement in her lower extremity edema. After several days had attempted diuresis the patient developed a loose cough. Chest x-ray did not suggest new pneumonia but did show fair amount of scarring and inflammation from her recent Covid infection. She was empirically started on antibiotics in case there was an underlying bronchitis. Over the next several days her condition continued to decline with increasing amounts of supplemental oxygen required. Antibiotics were expanded significantly. Cultures were obtained. Her condition deteriorated further and she required noninvasive ventilation. She had a continued rise in her creatinine. There was some concern that this may be from medication so a variety of different medications including her PPI and hydroxychloroquine were stopped. Despite this her respiratory status declined further and she was almost completely dependent on BiPAP. Steroids were initiated and fortunately she did start to show some improvements. These improvements were short-lived however. The patient after rebounding for a few days had started to decline again. Her kidney function had improved temporarily and is declining again. We have had multiple conversations about both her acute and chronic medical problems. The patient feels at this point that she is too weak and too tired to continue receiving aggressive treatment. She has been frustrated with the ups and downs. She understands that this Covid infection has been quite hard on her lungs making her severe COPD, diastolic heart failure and pulmonary hypertension even bigger problems. She has had to go on insulin because of the steroids that we have been using. The patient and her family have had several conversations along with physicians and nursing. At this point she wishes to transition to comfort care only. She does not feel that she has the strength or endurance to survive both the acute and chronic medical problems and make good recovery. I felt that this was a reasonable approach given the severity of her Covid infection complicating her chronic medical problems. The patient had all of her medications discontinued the day before her passing with the exception of her comfort medications. On the morning of her the patient who was surrounded by her family had her oxygen removed. She was treated aggressively with morph ine and lorazepam. She passed peacefully on the morning of May 15 with family at her bedside. No attempts at resuscitation were made per her previously expressed wishes. Cause of is multifactorial with a combination of Severe COPD, recent Covid infection and resulting lung injury as well as diastolic congestive heart failure with additional contributing conditions of acute on chronic kidney disease and rheumatoid arthritis with immunosuppressive medications. - Discharge Plan Home Medications: Home Meds Hydroxychloroquine Sulfate 200 mg PO DAILY 05/09/13 [History] cycloSPORINE [Restasis] 1 drop EYEBOTH BID PRN 05/09/13 [History] Albuterol [Proventil Neb Soln] 3 ml INH Q6H PRN 09/22/15 [History] Albuterol [Ventolin HFA] 2 puff INH Q6H PRN 09/22/15 [History] Magnesium Oxide 400 mg PO TID 05/17/16 [History] Diclofenac Sodium [Voltaren] 4 gm TOP QID 09/26/18 [History] Gabapentin [Neurontin] 300 - 600 mg PO TID 09/26/18 [History] Triamcinolone Acetonide [Kenalog 0.1% Crm] 1 applic TOP TID PRN 09/26/18 [History] Ferrous Sulfate 325 mg PO TIDAC 12/24/18 [History] rOPINIRole [Requip] 1.5 tab PO BID 12/24/18 [History] Spironolactone [Aldactone] 25 mg PO DAILY 02/13/19 [History] Calcium Carbonate/Vitamin D3 [Caltrate 600+D 1500 MG-400 Units] 1 tab PO BID #60 tablet 02/16/19 [Rx] Losartan [Cozaar] 50 mg PO DAILY #30 tablet 03/30/19 [Rx] Acetaminophen/HYDROcodone [[place] 325-5 MG] 1 tab PO Q6H PRN 06/06/19 [History] Cholecalciferol (Vitamin D3) [Vitamin D3] 1,000 unit PO BID 06/06/19 [History] Cyclobenzaprine [Flexeril] 10 mg PO TID PRN 06/06/19 [History] Fluticasone Propionate [Flonase] 2 spray IH DAILY 06/06/19 [History] Pantoprazole [ProTONIX] 40 mg PO DAILY 06/06/19 [History] carvediloL [Coreg] 3.125 mg PO BID 06/06/19 [History] Bumetanide [Bumex] 2 mg PO BID #60 tab 06/08/19 [Rx] Apixaban [Eliquis] 2.5 mg PO BID #28 tablet 04/19/20 [Rx] Insulin Glarg,Human.Rec.Analog [Lantus Solostar] 15 units SUBCUT BEDTIME [History] Patient Handouts: Heart Failure Exacerbation Referrals: PCP,None [Primary Care Provider] - - Discharge Summary/Plan Comment DC Time >30 min.: Yes (40) - Patient Data Vitals - Most Recent: Last Vital Signs Temp 36.5 C 05/14/20 19:00 Pulse 66 05/14/20 19:00 Resp 18 05/14/20 19:00 BP 162/49 H 05/14/20 19:00 Pulse Ox 97 05/14/20 19:00 Weight - Most Recent: 89.222 kg Med Orders - Current: Current Medications Acetaminophen (Tylenol) 650 mg PO Q4H PRN PRN Reason: Pain (Mild 1-3)/fever Hydrocodone Bitart/Acetaminophen ([place] 325-5 Mg) 1 tab PO Q4H PRN PRN Reason: Pain (moderate 4-6) Last Admin: 05/12/20 23:08 Dose: 1 tab Documented by: Artificial Tears (Genteal Mild To Moderate Ophth Soln) 0 ml EYEBOTH QID PRN PRN Reason: DRY EYES Benzocaine/Menthol (Cepacol Sore Throat) 1 lozenge MUCMEM Q2H PRN PRN Reason: Sore Throat Diclofenac Sodium (Voltaren 1% Gel) 0 gm TOP QID [facility] Last Admin: 05/15/20 10:23 Dose: Not Given Documented by: Gabapentin (Neurontin) 300 mg PO BID [facility] Last Admin: 05/15/20 10:22 Dose: 300 mg Documented by: Levalbuterol HCl (Xopenex) 1.25 mg NEB Q2H PRN PRN Reason: wheezing/sob Lorazepam (Ativan) 0.5 mg IVPUSH Q4H PRN PRN Reason: Nausea/Vomiting Last Admin: 05/04/20 21:30 Dose: 0.5 mg Documented by: Lorazepam (Ativan Oral Concentrate 1mg/0.5 Ml U/D) 1 mg PO Q1H PRN PRN Reason: Anxiety Last Admin: 05/15/20 11:00 Dose: 1 mg Documented by: Melatonin (Melatonin) 9 mg PO BEDTIME [facility] Last Admin: 05/14/20 22:04 Dose: 9 mg Documented by: Morphine Sulfate (Morphine 10 Mg/0.5 Ml Oral Syringe) 10 mg PO Q15M PRN PRN Reason: Pain/Dyspnea Last Admin: 05/15/20 11:00 Dose: 10 mg Documented by: Ondansetron HCl (Zofran) 4 mg IV Q6H PRN PRN Reason: Nausea/Vomiting Last Admin: 04/29/20 12:36 Dose: 4 mg Documented by: Ondansetron HCl (Zofran Odt) 4 mg PO Q6H PRN PRN Reason: Nausea able to take PO Ropinirole HCl (Requip) 1.5 mg PO BID [facility] Last Admin: 05/15/20 10:22 Dose: Not Given Documented by: Sodium Chloride (Saline Flush) 10 ml FLUSH ASDIRECTED PRN PRN Reason: Keep Vein Open Last Admin: 04/28/20 14:28 Dose: 10 ml Documented by: Discontinued Medications Albuterol (Proventil Neb Soln) 2.5 mg NEB Q4H PRN PRN Reason: Shortness Of Breath/wheezing Last Admin: 05/03/20 14:05 Dose: 2.5 mg Documented by: Albuterol/Ipratropium (Duoneb 3.0-0.5 Mg/3 Ml) 3 ml NEB QIDRT [facility] Last Admin: 05/12/20 10:40 Dose: 3 ml Documented by: Amlodipine Besylate (Norvasc) 5 mg PO DAILY [facility] Last Admin: 05/11/20 09:31 Dose: 5 mg Documented by: Amlodipine Besylate (Norvasc) 5 mg PO BID [facility] Last Admin: 05/14/20 08:54 Dose: 5 mg Documented by: Apixaban (Eliquis) 2.5 mg PO BID [facility] Last Admin: 05/14/20 08:55 Dose: 2.5 mg Documented by: Bumetanide (Bumex) 1 mg IVPUSH ONETIME ONE Stop: 04/28/20 14:13 Last Admin: 04/28/20 14:23 Dose: 1 mg Documented by: Bumetanide (Bumex) 2 mg IVPUSH ONETIME ONE Stop: 04/29/20 07:01 Last Admin: 04/29/20 06:32 Dose: 2 mg Documented by: Bumetanide (Bumex) 2 mg IVPUSH ONETIME ONE Stop: 05/02/20 10:35 Last Admin: 05/02/20 11:43 Dose: 2 mg Documented by: Bumetanide (Bumex) 2 mg IVPUSH ONETIME ONE Stop: 05/03/20 13:01 Last Admin: 05/03/20 14:05 Dose: 2 mg Documented by: Bumetanide (Bumex) 2 mg IVPUSH BID [facility] Stop: 05/04/20 21:01 Last Admin: 05/04/20 20:02 Dose: 2 mg Documented by: Bumetanide (Bumex) 1 mg IVPUSH ONETIME ONE Stop: 05/06/20 12:16 Last Admin: 05/06/20 12:17 Dose: 1 mg Documented by: Bumetanide (Bumex) 2 mg IVPUSH ONETIME ONE Stop: 05/07/20 11:01 Last Admin: 05/07/20 11:18 Dose: 2 mg Documented by: Bumetanide (Bumex) 1 mg IVPUSH ONETIME ONE Stop: 05/08/20 10:31 Last Admin: 05/08/20 11:15 Dose: 1 mg Documented by: Bumetanide (Bumex) 2 mg IVPUSH ONETIME ONE Stop: 05/09/20 09:46 Last Admin: 05/09/20 10:09 Dose: 2 mg Documented by: Carvedilol (Coreg) 3.125 mg PO BID [facility] Last Admin: 04/28/20 20:53 Dose: 3.125 mg Documented by: Dextrose (Glutose 15) 15 gm PO ONETIME PRN PRN Reason: Hypoglycemia Dextrose/Water (Dextrose 50% In Water) 50 ml IV ONETIME PRN PRN Reason: Hypoglycemia Doxycycline Hyclate (Vibramycin) 100 mg PO BID [facility] Last Admin: 05/04/20 08:52 Dose: 100 mg Documented by: Gabapentin (Neurontin) 300 mg PO BID@0800,1200 [facility] Last Admin: 05/01/20 08:21 Dose: 300 mg Documented by: Gabapentin (Neurontin) 600 mg PO BEDTIME [facility] Last Admin: 04/30/20 21:28 Dose: 600 mg Documented by: Hydroxychloroquine Sulfate (Plaquenil) 200 mg PO DAILY [facility] Last Admin: 05/11/20 09:30 Dose: 200 mg Documented by: Sodium Chloride (Normal Saline) 1,000 mls @ 125 mls/hr IV ASDIRECTED [facility] Stop: 04/29/20 17:31 Last Admin: 04/29/20 11:05 Dose: 125 mls/hr Documented by: Sodium Chloride (Normal Saline) 500 mls @ 125 mls/hr IV ASDIRECTED ONE Stop: 04/30/20 13:59 Last Admin: 04/30/20 10:31 Dose: 125 mls/hr Documented by: Sodium Chloride (Normal Saline) 500 mls @ 125 mls/hr IV ONETIME ONE Stop: 05/01/20 09:48 Last Admin: 05/01/20 06:06 Dose: 125 mls/hr Documented by: Albumin Human (Albumin 25%) 25 gm in 100 mls @ 25 mls/hr IV Q6H [facility] Stop: 05/04/20 08:59 Last Admin: 05/04/20 05:19 Dose: 25 mls/hr Documented by: Meropenem 1 gm/ Sodium (Chloride) 50 mls @ 100 mls/hr IV Q12H [facility] Last Admin: 05/07/20 23:49 Dose: 100 mls/hr Documented by: Levofloxacin/Dextrose 750 mg/ (Premix) 150 mls @ 100 mls/hr IV Q24H [facility] Last Admin: 05/04/20 09:31 Dose: 100 mls/hr Documented by: Dextrose/Water (Dextrose 5% In Water) 1,000 mls @ 75 mls/hr IV ASDIRECTED [facility] Last Admin: 05/05/20 23:37 Dose: 75 mls/hr Documented by: Levofloxacin/Dextrose 750 mg/ (Premix) 150 mls @ 100 mls/hr IV Q48H [facility] Last Admin: 05/08/20 11:39 Dose: Not Given Documented by: Doxycycline Hyclate 100 mg/ (Sodium Chloride) 100 mls @ 100 mls/hr IV Q12H [facility] Stop: 05/11/20 08:00 Last Admin: 05/11/20 00:30 Dose: 100 mls/hr Documented by: Cefepime HCl 2 gm/ Sodium (Chloride) 50 mls @ 100 mls/hr IV Q24H [facility] Stop: 05/11/20 08:00 Last Admin: 05/10/20 15:15 Dose: 100 mls/hr Documented by: Magnesium Sulfate (Magnesium Sulfate In Water 2 Gm/50 Ml) 2 gm in 50 mls @ 25 mls/hr IV Q6H [facility] Stop: 05/09/20 16:59 Last Admin: 05/09/20 15:00 Dose: 25 mls/hr Documented by: Insulin Glargine (Lantus Solostar) 15 units SUBCUT BEDTIME [facility] Last Admin: 05/13/20 21:30 Dose: 15 units Documented by: Insulin Human Lispro (Humalog) 0 unit SUBCUT QIDACANDBED [facility]; Protocol Last Admin: 05/01/20 12:38 Dose: Not Given Documented by: Insulin Human Lispro (Humalog) 0 unit SUBCUT QIDACANDBED [facility]; Protocol Last Admin: 05/11/20 07:29 Dose: 3 units Documented by: Insulin Human Lispro (Humalog) 0 unit SUBCUT QIDACANDBED [facility]; Protocol Last Admin: 05/14/20 08:13 Dose: Not Given Documented by: Levalbuterol HCl (Xopenex) 1.25 mg NEB QIDRT [facility] Last Admin: 05/14/20 07:04 Dose: 1.25 mg Documented by: Lorazepam (Ativan Oral Concentrate 1mg/0.5 Ml U/D) 0.5 mg PO Q2H PRN PRN Reason: Anxiety Last Admin: 05/05/20 14:16 Dose: 0.5 mg Documented by: Losartan Potassium (Cozaar) 50 mg PO DAILY [facility] Magnesium Hydroxide (Milk Of Magnesia) 30 ml PO Q12H PRN PRN Reason: Constipation Magnesium Oxide (Magnesium Oxide) 400 mg PO BID [facility] Last Admin: 05/14/20 08:55 Dose: 400 mg Documented by: Methylprednisolone Sodium Succinate (Solu-Medrol) 40 mg IVPUSH Q8H [facility] Last Admin: 05/11/20 02:12 Dose: 40 mg Documented by: Morphine Sulfate (Morphine 10 Mg/0.5 Ml Oral Syringe) 2.5 mg PO Q2H PRN PRN Reason: Dyspnea Last Admin: 05/15/20 09:10 Dose: 2.5 mg Documented by: Morphine Sulfate (Morphine 10 Mg/0.5 Ml Oral Syringe) 5 mg PO Q1H PRN PRN Reason: Pain/Dyspnea Last Admin: 05/15/20 07:22 Dose: 5 mg Documented by: Nitroglycerin (Nitrostat) 0.4 mg SL ONETIME ONE Stop: 04/28/20 14:15 Last Admin: 04/28/20 14:22 Dose: 0.4 mg Documented by: Nystatin (Nystop) 0 gm TOP TID [facility] Last Admin: 05/14/20 08:54 Dose: Not Given Documented by: Pantoprazole Sodium (Protonix) 40 mg PO DAILY@0730 [facility] Last Admin: 05/01/20 08:21 Dose: 40 mg Documented by: Prednisone (Prednisone) 40 mg PO ONETIME ONE Stop: 05/11/20 09:31 Last Admin: 05/11/20 09:29 Dose: 40 mg Documented by: Prednisone 10 mg/ Prednisone (20 mg) 30 mg PO DAILY [facility] Last Admin: 05/14/20 08:55 Dose: 30 mg Documented by: Senna/Docusate Sodium (Senna Plus) 1 tab PO BID PRN PRN Reason: Constipation Sodium Chloride (Saline Flush) 10 ml FLUSH ASDIRECTED PRN PRN Reason: Keep Vein Open Last Admin: 04/28/20 14:29 Dose: 10 ml Documented by: Sodium Polystyrene Sulfonate (Kayexalate) 30 gm PO ONETIME ONE Stop: 05/02/20 05:55 Last Admin: 05/02/20 07:08 Dose: 30 gm Documented by: Sodium Polystyrene Sulfonate (Kayexalate) 30 gm PO ONETIME ONE Stop: 05/13/20 09:31 Last Admin: 05/13/20 09:57 Dose: 30 gm Documented by: Sodium Polystyrene Sulfonate (Kayexalate) 30 gm PO ONETIME ONE Stop: 05/14/20 07:01 Last Admin: 05/14/20 10:15 Dose: Not Given Documented by: Spironolactone (Aldactone) 25 mg PO DAILY [facility] Last Admin: 04/29/20 10:17 Dose: Not Given Documented by:
== END 2020-05-15 13:52 | disposition expired | DRG 291 ==
LOC: JP.ED 13:39 → JP.MS 15:38 → JP.2SS 05-14 10:53
PROVIDERS: ADMIT Internal Medicine; ATTEND Internal Medicine
PROC: 5A09558 Assistance with Respiratory Ventilation, Greater than 96 Consecutive Hours, Intermittent Positive Airway Pressure (ICD-10-PCS; principal; 2020-05-07)
PROC: 30233N1 Transfusion of Nonautologous Red Blood Cells into Peripheral Vein, Percutaneous Approach (ICD-10-PCS; 2020-05-10)
DX: I13.0 Hypertensive heart and chronic kidney disease with heart failure and stage 1 through stage 4 chronic kidney disease, or unspecified chronic kidney disease (principal); I11.9 Hypertensive heart disease without heart failure; J96.21 Acute and chronic respiratory failure with hypoxia; I50.33 Acute on chronic diastolic (congestive) heart failure; N17.9 Acute kidney failure, unspecified; L97.909 Non-pressure chronic ulcer of unspecified part of unspecified lower leg with unspecified severity; I24.8 Other forms of acute ischemic heart disease; E87.0 Hyperosmolality and hypernatremia; Z66 Do not resuscitate; I27.22 Pulmonary hypertension due to left heart disease; Z51.5 Encounter for palliative care; M06.9 Rheumatoid arthritis, unspecified; N18.31 Chronic kidney disease, stage 3a; E87.5 Hyperkalemia; H54.7 Unspecified visual loss; I25.10 Atherosclerotic heart disease of native coronary artery without angina pectoris; M19.90 Unspecified osteoarthritis, unspecified site; G89.29 Other chronic pain; M54.9 Dorsalgia, unspecified; M81.0 Age-related osteoporosis without current pathological fracture; E11.21 Type 2 diabetes mellitus with diabetic nephropathy; M32.9 Systemic lupus erythematosus, unspecified; H40.9 Unspecified glaucoma; H04.123 Dry eye syndrome of bilateral lacrimal glands; E11.22 Type 2 diabetes mellitus with diabetic chronic kidney disease; E66.9 Obesity, unspecified; E11.69 Type 2 diabetes mellitus with other specified complication; L93.0 Discoid lupus erythematosus; K52.9 Noninfective gastroenteritis and colitis, unspecified; E78.00 Pure hypercholesterolemia, unspecified; J40 Bronchitis, not specified as acute or chronic; H60.91 Unspecified otitis externa, right ear; R91.8 Other nonspecific abnormal finding of lung field; T38.0X5A Adverse effect of glucocorticoids and synthetic analogues, initial encounter; E88.09 Other disorders of plasma-protein metabolism, not elsewhere classified; D63.1 Anemia in chronic kidney disease; I83.009 Varicose veins of unspecified lower extremity with ulcer of unspecified site; E11.622 Type 2 diabetes mellitus with other skin ulcer; B94.8 Sequelae of other specified infectious and parasitic diseases; I45.10 Unspecified right bundle-branch block; Z79.51 Long term (current) use of inhaled steroids; J44.9 Chronic obstructive pulmonary disease, unspecified; E11.40 Type 2 diabetes mellitus with diabetic neuropathy, unspecified; R32 Unspecified urinary incontinence; Z87.81 Personal history of (healed) traumatic fracture; Z87.891 Personal history of nicotine dependence; Z99.81 Dependence on supplemental oxygen; Z86.718 Personal history of other venous thrombosis and embolism; Z86.711 Personal history of pulmonary embolism; Z68.36 Body mass index [BMI] 36.0-36.9, adult; Z98.890 Other specified postprocedural states; Z91.14 Patient's other noncompliance with medication regimen; Z88.8 Allergy status to other drugs, medicaments and biological substances; Z79.01 Long term (current) use of anticoagulants; Z79.4 Long term (current) use of insulin; Z79.899 Other long term (current) drug therapy
CPT/HCPCS: 36415; 71045 ×2; 80053; 83880; 84484; 85025; 93005; 96374; 99285 ×2; A9270; J3490; 36430; 36600; 51702; 71250; 80048; 81001; 82803; 82962; 83735; 84132; 84145; 85018; 85027; 85379; 86140; 86850; 86900; 86901; 86920; 86922; 87040; 93306; 94640; 94660; 94667; 94668; 94762; 97110-GO; 97110-GP; 97162-GP; 97165-GO; 97530-GP; 99222; 99231; 99232; 99239; J0692; J1815; J1956; J2060; J2185; J2405; J2920; J3475; J7030; J7060; J7512; J7612-GY; J7620-GY; P9016; P9047